=== PATIENT | male | born 1960 | race Caucasian/White ===

== ENCOUNTER 2024-03-10 13:46 | Outpatient (RCR) | payer MEDICARE, SELFPAY | END 2024-03-11 23:59 | disposition home or self-care (01) | LOC: CR 13:46 | PROVIDERS: Visit Provider Internal Medicine Cardiovascular Disease | DX: I21.29 ST elevation (STEMI) myocardial infarction involving other sites (principal); Z51.89 Encounter for other specified aftercare | CPT/HCPCS: S9472 ==

== ENCOUNTER 2024-04-11 13:19 | Outpatient (RCR) | payer MEDICARE, MEDICAID, SELFPAY | END 2024-04-11 23:59 | disposition home or self-care (01) | LOC: CR 13:19 | PROVIDERS: Visit Provider Internal Medicine Cardiovascular Disease | DX: I21.29 ST elevation (STEMI) myocardial infarction involving other sites (principal); Z51.89 Encounter for other specified aftercare | CPT/HCPCS: S9472 ==

== ENCOUNTER 2024-05-07 13:04 | Outpatient (RCR) | payer MEDICARE, MEDICAID, SELFPAY | END 2024-05-11 23:59 | disposition home or self-care (01) | LOC: CR 13:04 | PROVIDERS: Visit Provider Internal Medicine Cardiovascular Disease | DX: I21.3 ST elevation (STEMI) myocardial infarction of unspecified site (principal) | CPT/HCPCS: S9472 ==

== ENCOUNTER 2024-06-11 13:20 | Outpatient (RCR) | payer MEDICARE, MEDICAID, SELFPAY | END 2024-06-11 23:59 | disposition home or self-care (01) | LOC: CR 13:20 | PROVIDERS: Visit Provider Internal Medicine Cardiovascular Disease | DX: I21.3 ST elevation (STEMI) myocardial infarction of unspecified site (principal) | CPT/HCPCS: S9472 ==

== ENCOUNTER 2024-07-09 13:31 | Outpatient (RCR) | payer MEDICARE, MEDICAID, SELFPAY ==
--- OUTSIDE RECORDS SUMMARY | 2024-06-18 14:54 | XMS_ITS | Continuity of Care Document ---
Author Organization [facility] Ambulatory Clinics Address [address] [place] [address] Care Team Providers Care Director Of Enrollment Name Role Phone Leo Locke DO Primary Care Physician [phone] Encounter [facility] FIN NBR [id number] Date(s): 12/21/22 - 12/21/22 [facility] Ambulatory Clinics [address] [place], [place] [address] Encounter Diagnosis PATRICIA - Obstructive sleep apnea(Discharge Diagnosis) - 12/21/22 Discharge Disposition: Home or Self Care Attending Physician: Cody Ahumada DO Allergies, Adverse Reactions, Alerts Substance Reaction Severity Status lisinopril Dry cough Moderate Active Lipitor Unknown Active AmLODIPine Besylate Unknown Active Assessment and Plan Future Appointments Future Scheduled Tests Laboratory* Comprehensive Metabolic Panel 02/08/23 * Hgb A1c 02/08/23 Functional Status 12/21/22 Other exposure to Infectious Disease Non e Immunizations Given and Recorded Vaccine Date Status Refusal Reason SARS-CoV-2 (COVID-19) mRNA BNT-162b2 vax 11/03/21 Recorded influenza, unspecified formulation 1 09/05/11 Martínez rded 1Result Comment: ASHUTOSH Medications Ativan 1 mg oral tablet 1 mg = 1 tab, Oral, BID, PRN as needed for anxiety, 0 Refill(s) Start Date: 10/08/22 Status: Ordered Durable Medical Equipment freestyle lancets to go with Kaylee, Supply, See instructions, # 1 EA, 0 Refill(s) Start Date: 10/08/22 Status: Ordered Durable Medical Equipment freestyle test strips, Supply, See instructions, # 1 EA, 0 Refill(s) Start Date: 10/08/22 Status: Ordered Durable Medical Equipment Freestyle Kaylee 14 day Sensor, Supply, See instructions, # 1 EA, 0 Refill(s) Start Date: 10/08/22 Status: Ordered ketoconazole 2% topical cream 1 jorje, Topical, Daily, # 15 g, 0 Refill(s) Start Date: 10/08/22 Status: Ordered losartan 25 mg oral tablet 25 mg = 1 tab, Oral, Daily, # 30 tab, 0 Refill(s) Start Date: 10/08/22 Status: Ordered metFORMIN 500 mg oral tablet 500 mg = 1 tab, Oral, Daily, # 90 tab, 4 Refill(s), Pharmacy: [id number] Start Date: 10/11/22 Stop Date: 01/04/24 Status: Ordered semaglutide 4 mg/3 mL (1 mg dose) subcutaneous solution 1 mg =, Subcutaneous, every week, # 3 mL, 3 Refill(s), Pharmacy: [facility] Start Date: 10/16/22 Stop Date: 02/13/23 Status: Ordered Ventolin HFA 90 mcg/inh inhalation aerosol 2 puffs, Inhale, every 4 hr, PRN as needed for wheezing, # 18 g, 0 Refill(s) Start Date: 10/08/22 Status: Ordered verapamil 180 mg/12 hours oral tablet, extended release 180 mg = 1 tab, Oral, every 12 hr, 0 Refill(s) Start Date: 10/08/22 Status: Ordered Vraylar 3 mg =, Oral, Daily, 0 Refill(s) Start Date: 10/08/22 Status: Ordered Problem List Condition Confirmation Course Effective Dates Status H ealth Status Informant Acute cystitis 1 Confirmed Active Benign prostatic hyperplasia with outflow obstruction Confirmed Active Bipolar affective disorder Confirmed Active Bladder calculus Confirmed Active BPH - benign prostatic hyperplasia Confirmed Active Chronic diarrhea Confirmed Active COPD - Chronic obstructive pulmonary disease Confirmed Active Dysuria Confirmed Active Erectile dysfunction Confirmed Active Essential hypertension Confirmed Active GERD - Gastro-esophageal reflux disease Confirmed Active High blood cholesterol/triglycer ides Confirmed Active Hyperlipidemia Confirmed Active Hyperoxaluria Confirmed Active Incomplete bladder emptying Confirmed Active Lesion of bladder Confirmed Active Male hypogonadism Confirmed Active Obesity-morbid Confirmed Active PATRICIA - Obstructive sleep apnea Confirmed Active Overeating Confirmed Active Polyuria Confirmed Active Prostatitis Confirmed Active Restrictive lung disease Confirmed Active Tobacco dependence caused by cigarettes Confirmed Active Type 2 diabetes mellitus Confirmed Active Urinary hesitancy Confirmed Active 1without hematuria Procedures Procedure Date Related Diagnosis Body Site Status TURP - Redo transurethral re section of prostate 1 03/12/18 Completed Colonoscopy 2 10/20/13 Completed Procedure 3 Completed Procedure 4 Completed Surgery 5 Completed 1calculi 2Dr. Anup LR 3skin tag removal 4wart removal left hand finger as a teenager 5deviated septum 2007 Vital Signs Most recent to oldest [Reference Range]: 1 Peripheral Pulse Rate [60-100 bpm] 86 bp m (12/21/22 1:43 PM) Blood Pressure [90-140/60-90 mmHg] 137/8 7mmHg (12/21/22 1:43 PM) Weight 136.71 kg (12/21/22 1:43 PM) Weight Measured (lbs) 301.394 lb (12/21/22 1:43 PM) [place] Body Weight Calculated 75.3 kg (12/21/22 1:43 PM) Height 180.34 cm (12/21/22 1:43 PM) Height/Length Measured (inches) 71 inch (12/21/22 1:43 PM) BSA Measured 2.62 m2 (12/21/22 1:43 PM) Body Mass Index 42.04 kg/m2 (12/21/22 1:43 PM) Social History Social History Type Response Tobacco Never tobacco user T obacco Use:. Sex Hospital Discharge Instructions Follow Up Care 11/29/2022 10:15:05 With:Cody Ahumada DO Address: [address] [place] [id number] When: Unknown Comments:Should be seen in 1 year. Physician Outpatient Note * Cody Ahumada DO: PERFORM Event Display: Office Clinic Note Physician Authored Date: [id number] ANDREW ALVARADO :1960 Age:62 years Sex:Male Visit Date:12/21/2022 Primary Care Physician: Leo Locke DO Chief Complaint 6-month follow-up for severe PATRICIA treated with bilevel ventilation 12/9 cm H2O. ??Using a new Tiffanie bilevel unit from [facility]. ??100% usage, high leak. He scored 1 on [place] today. ??Needs mask and heatedhose. 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 Leo Locke for primary care initially presented to me on December 14, 2021 with a known history of PATRICIA at the request of Dr. Locke for further evaluation and management. -- Andrew's most recent sleep medicine consult was from [place] dated November 21, 2021. He had originally been seen there in 2008 and diagnosed with severe PATRICIA with AHI of 65 and during REM sleep the AHI was 127. -- Started on bilevel ventilation. His DME was [employer] and they verified consistent usage. -- Dr. Jose Adler of the [place] sleep center thought it was acceptable for him to transfer sleepmedicine care to me as it was more convenient for the patient. -- He was using a ResMed air curve 10 bilevel unit. -- He initially came to us without an SSD card and so we gave him 1 and got a compliance report which was good. I then ordered a much-needed new machine as his current one was 7 years or more of age.He requested an 8 long foot regular hose and wanted to continue using his Quatro medium fullface mask. He also likes the pressure settings. ... ?? Data Download:??November 28, 2022??through December 19, 2022 - Settings:??Bilevel 12/9 cm H2O - Use:??100% - Av. nightly use:??10 hours 44 minutes - 95% pressure:??As noted - AHI:??1.1 - 95% leak:??69.9 L/min ... Andrew presents today without complaint.?? He does note that he would like to be supplied better with??his medium ResMed??Quatro [place]??face mask and he notes that??the heated hose given to him by hisnew DME company??was faulty and he would like that ordered as well.?? Of course, I am happy to do so.?? Otherwise, he likes the machine and feels the [employer] company is okay. ?? He changes the mask about once a month. ??He is not bothered by leak and he feels the pressure is appropriate.?? Unfortunately, he rarely cleans the mask but will??make a greater effort at my behest.?? He does not use the??reservoir.?? The filters on the new machine are washable??and he will take proper care of those.?? He would have done so by now but he only got the machine??2-1/2 to 3 weeks ago. ?? In health news,??he thinks his last A1c was around 11.?? His primary care provider doubled his Ozempic??and Andrew tells me his blood sugars range from 150 to the low 200s. ?? Andrew sleeps a lot but??feels fine about that.?? He generally sleeps from??7 or 8 PM until 9 AM.?? He continues to wake up??as many as 6 or 7 times per night to urinate.?? This has been investigated by urology??and they feel it is due to diabetes and sleep apnea, even though the latter is controlled.?? On some nights he is brenda and he may only get up??3 times??but that only happens once or twice a week at most. ?? Andrew continues to have a low [place] sleepiness score.?? Today's value is 12/05. ?? Multiple benefits are again cited:??No snoring or breathing pauses as well as better sleep quality with fewer awakenings,??waking up more refreshed with more daytime energy and less daytime sleepiness,??fewer headaches with better concentration and better blood pressure. Review of Systems Constitutional:?No??fevers,?No??chills,?No??sweats ENT:?No??ear pain,?No??nasal congestion,?No??sore throat Respiratory:?No??shortness of breath,?No??cough Cardiovascular:?No??Chest pain,?No??palpitations,?No??syncope Neurologic: Alert & oriented X 4 Psychiatric:?No??anxiety,?No??depression Physical Exam Vitals & Measurements HR:??86??(Peripheral)?? BP:??137/87?? HT:??180.34??cm?? WT:??136.71??kg?? BMI:??42.04?? BSA:??2.62?? General: Alert and oriented,??No??acute distress, obese Eye: PERRL, EOMI,?Normal??conjunctiva HENT: Normocephalic, Atraumatic, Dentition??normal??Retrognathia??none??Mallampati class??IV,??Tongue size??large, Tonsils??Surgically absent, Uvula??thick Throat:??Normal Neck: Supple, non-tender,?No??carotid bruits,?No??JVD,?No??lymphadenopathy Lungs: Clear to auscultation and percussion,?Non-labored?? respiration,??No wheezes,??No Rales,??No rhonchi Heart:?Normal?? rate,?Regular??rhythm,?No??murmur??_,?No??gallop,?No??edema Neurologic: Awake, alert and oriented, Cognition??Normal, Coordination??Normal??Speech??Normal??TremorNone Psychiatric: Appropriate mood and affect Assessment/Plan 1.??PATRICIA - Obstructive sleep apnea??G47.33 I am ordering a new heated hose??for Andrew's Tiffanie bilevel unit??which she has been using ever since he got it 2-1/2 to 3 years ago.?? He is doing so to great effect??and has always been very compliantthe entire time I have known him.?? I am also ordering him??more masks.?? Andrew is a very conscientious??gentleman very actively engaged in his healthcare??and when it comes to his obstructive sleep apnea syndrome, at least,??he is very well controlled.?? I do not think he needs to be seen again??for a year but he knows to call me??with any questions, problems, or concerns??prior to my departure??from [facility] on March 01. Follow Up Instructions With When Contact Information Cody Ahumada DO [address] [place] [address] Additional Instructions: Should be seen in 1 year. Problem List/Past Medical History Ongoing Acute cystitis Benign prostatic hyperplasia with outflow obstruction Bipolar affective disorder Bladder calculus BPH - benign prostatic hyperplasia Chronic diarrhea COPD - Chronic obstructive pulmonary disease Dysuria Erectile dysfunction Essential hypertension GERD - Gastro-esophageal reflux disease High blood cholesterol/triglycerides Hyperlipidemia Hyperoxaluria Incomplete bladder emptying Lesion of bladder Male hypogonadism Obesity-morbid PATRICIA - Obstructive sleep apnea Overeating Polyuria Prostatitis Restrictive lung disease Tobacco dependence caused by cigarettes Type 2 diabetes mellitus Urinary hesitancy Historical No qualifying data Procedure/Surgical History ???TURP - Redo transurethral resection of prostate (03/13/2018)???Colonoscopy (10/21/2013)???Procedure???Procedure???Surgery Medications Ativan 1 mg oral tablet, 1 mg= 1 tab, Oral, BID, PRN Durable Medical Equipment, See instructions Durable Medical Equipment, See instructions Durable Medical Equipment, See instructions ketoconazole 2% topical cream, 1 jorje, Topical, Daily losartan 25 mg oral tablet, 25 mg= 1 tab, Oral, Daily metFORMIN 500 mg oral tablet, 500 mg= 1 tab, Oral, Daily, 4 refills semaglutide 4 mg/3 mL (1 mg dose) subcutaneous solution, 1 mg, Subcutaneous, every week, 3 refills Ventolin HFA 90 mcg/inh inhalation aerosol, 2 puffs, Inhale, every 4 hr, PRN verapamil 180 mg/12 hours oral tablet, extended release, 180 mg= 1 tab, Oral, every 12 hr Vraylar, 3 mg, Oral, Daily Allergies lisinopril??(Dry cough) AmLODIPine Besylate Lipitor Social History Alcohol Never Electronic Cigarette/Vaping Electronic Cigarette Use: Use, within last 90 days. Type: Cannabinoid infused. Tobacco Never tobacco user Tobacco Use:. Family History Alcoholism: Sister. Diabetes mellitus: Mother. Diabetes mellitus type 1: Sister. Family Member(s): ?? FATHER, at age: Unknown. Cause of : Family Member(s): ?? SISTER, at age: Unknown. Cause of : Immunizations Vaccine Date Status SARS-CoV-2 (COVID-19) mRNA BNT-162b2 vax 11/03/2021 Recorded influenza, unspecified formulation 09/05/2011 Recorded Comments : ASHUTOSH Electronically Signed on 12/21/22 02:16 PM Cody Ahumada DO Patient Care team information Personnel Name: Leo Locke DO Address: Address: [address] [place] [phone]
--- OUTSIDE RECORDS SUMMARY | 2024-06-18 14:54 | XMS_ITS | Continuity of Care Document ---
Author Organization [facility] Ambulatory Clinics Address [address] [place] [address] Care Team Providers Care Family Service Counselor Name Role Phone Leo Locke DO Primary Care Physician Encounter [facility] [facility] NBR [id number] Date(s): 04/10/23 - 04/10/23 [facility] Ambulatory Clinics [address] [place], [place] [address] Discharge Disposition: Home Allergies, Adverse Reactions, Alerts Substance Reaction Severity Status lisinopril Dry cough Moderate Active Lipitor Unknown Active AmLODIPine Besylate Unknown Active Assessment and Plan Future Appointments Future Scheduled Tests Laboratory* Comprehensive Metabolic Panel 04/10/23 * Comprehensive Metabolic Panel 02/08/23 * Hgb A1c 04/10/23 * Hgb A1c 02/08/23 Immunizations Given and Recorded Vaccine Date Status Refusal Reason SARS-CoV-2 (COVID-19) mRNA BNT-162b2 vax 11/03/21 Recorded SARS-CoV-2 (COVID-19) mRNA BNT-162b2 vax 1 04/13/21 Recorded SARS-CoV-2 (COVID-19) mRNA BNT-162b2 vax 2 02/10/21 Recorded influenza, unspecified formulation 3 09/05/11 Martínez rded 1Result Comment: COVID-19 (Pfizer) mRNA,LNP-S,PF 30 mcg/0.3mL dose 2Result Comment: COVID-19 (Pfizer) mRNA,LNP-S,PF 30 mcg/0.3mL dose 3Result Comment: ASHUTOSH Medications Ativan 1 mg oral tablet 1 mg = 1 tab, Oral, BID, PRN as needed for anxiety, # 40 tab, 0 Refill(s) Start Date: 10/08/22 Stop Date: 02/22/23 Status: Ordered Durable Medical Equipment freestyle lancets to go with Kaylee, Supply, See instructions, # 1 EA, 0 Refill(s) Start Date: 10/08/22 Status: Ordered Durable Medical Equipment freestyle test strips, Supply, See instructions, # 1 EA, 0 Refill(s) Start Date: 10/08/22 Status: Ordered Freestyle Kaylee 14 day sensor Freestyle Kaylee 14 day sensor, Freestyle Kaylee 14 day Sensor, appy new sensor every 14 days per package directions, Supply, See instructions, # 6 EA, 3 Refill(s), Pharmacy: [facility] Start Date: 01/09/23 Status: Ordered High Potency Vitamin D3 125 mcg (5000 intl units) oral capsule 125 mcg = 1 cap, Oral, Daily, # 90 cap, 0 Refill(s) Start Date: 02/02/23 Stop Date: 05/02/23 Status: Ordered ketoconazole 2% topical cream 1 jorje, Topical, Daily, For 1 week. Repeat as needed., # 15 g, 0 Refill(s) Start Date: 10/08/22 Status: Ordered losartan 25 mg oral tablet 25 mg = 1 tab, Oral, Daily, # 90 tab, 3 Refill(s), Pharmacy: [facility] Start Date: 01/19/23 Stop Date: 01/14/24 Status: Ordered metFORMIN 500 mg oral tablet 500 mg = 1 tab, Oral, Daily, # 90 tab, 3 Refill(s), Pharmacy: [facility] Start Date: 01/19/23 Stop Date: 01/14/24 Status: Ordered potassium citrate 10 mEq oral tablet, extended release 20 mEq = 2 tab, Oral, BID w/Meals, # 180 tab, 0 Refill(s) Start Date: 02/02/23 Stop Date: 05/03/23 Status: Ordered semaglutide 4 mg/3 mL (1 mg dose) subcutaneous solution 1 mg =, Subcutaneous, every week, # 3 mL, 3 Refill(s), Pharmacy: [facility] Start Date: 10/16/22 Stop Date: 02/13/23 Status: Ordered Ventolin HFA 90 mcg/inh inhalation aerosol 2 puffs, Inhale, every 4 hr, PRN as needed for wheezing, # 18 g, 0 Refill(s) Start Date: 10/08/22 Stop Date: 05/03/23 Status: Ordered verapamil 180 mg/12 hours oral tablet, extended release 180 mg = 1 tab, Oral, every 12 hr, # 180 tab, 3 Refill(s), Pharmacy: [facility] Start Date: 01/19/23 Stop Date: 01/14/24 Status: Ordered Vraylar 3 mg oral capsule 3 mg = 1 cap, Oral, Daily, # 90 cap, 0 Refill(s) Start Date: 02/02/23 Stop Date: 05/02/23 Status: Ordered Problem List Condition Confirmation Course Effective Dates Status H ealth Status Informant Acute cystitis 1 Confirmed Active Allergic rhinitis Confirmed Active Benign prostatic hyperplasia with outflow obstruction Confirmed Active BPH with obstruction/lower urinary tract symptoms 2 Confirmed Active Bipolar affective disorder 3 Confirmed Active Bladder calculus 4 Confirmed Active BPH - benign prostatic hyperplasia Confirmed Active Chronic diarrhea 5 Confirmed Active Chronic obstructive pulmonary disease, unspecified Confirmed Active COPD - Chronic obstructive pulmonary disease Confirmed Active Dysuria 6 Confirmed Active Erectile dysfunction Confirmed Active Essential hypertension Confirmed Active GERD - Gastro-esophageal reflux disease Confirmed Active High blood cholesterol/triglycer ides 7 Confirmed Active Hyperlipidemia Confirmed Active Hyperoxaluria 8 Confirmed Active Incomplete bladder emptying 9 Confirmed Active Hyperuricosuria 10 Confirmed Active Lesion of bladder 11 Confirmed Active Male hypogonadism Confirmed Active Hypogonadism male 12 Confirmed Active Morbid obesity due to excess calories 13 Confirmed Active Obesity-morbid Confirmed Active PATRICIA - Obstructive sleep apnea 14 Confirmed Active Overeating 15 Confirmed Active Polyuria Confirmed Active Prostatitis Confirmed Active Restrictive lung disease Confirmed Active Stress fracture of metatarsal bone Confirmed Active Tobacco dependence caused by cigarettes Confirmed Active Cigarette nicotine dependence in remission 16 Confirmed Active Type 2 diabetes mellitus Confirmed Active Type 2 diabetes mellitus without complication, without long-term current use of insulin Confirmed Active Urinary hesitancy Confirmed Active 1without hematuria 2FROM ECW: s/p TURP for outlet obstruction and stones. Improved LUTS, no significant recurrent calculi noted on pelvic CT. No concerning symptoms or urinary microscopic findings to suggest recurrent stones. Recheck on year. 3FROM ECW: Mood medications are with Dr. White. I will convey again my concerns about his weight, though I think a problem for many on stronger psychiatric medication, my thought. I had sent her notes back in June of last year, regarding the same. 4FROM ECW: While not related to obesity, it appears he was suggested to eat a diet lower in meats, but I don't know that he has either understood that or embraced that. Despite this, his understandingof the kidney stones are currently in remission. I don't think he necessarily needs to continue to see a medical neurologist, my thought, as long as he is doing well and as long as a plan is in place. Please also see below. 5FROM ECW: Likely osmiotic, related to diet. Doubt infectious, or inflammatory etiology. 6FROM ECW: terminal, likely relates to incomplete healing of prostatic fossa. 7FROM ECW: Admittedly his triglycerides are over 1000. The patient is morbidly obese. Ideally the best treatment for this is not medication but rather weight loss. I just don't believe that using Lopid/gemfibrozil is advantageous one weight loss is really the alberto, and would not start medication. This will obviously need to be followed. 8FROM ECW: Nephrology managing due to multiple metabolic derangements in the setting of numerous complicating medical comorbidities. 9may have contributed to calculus formation. Resolved. 10FROM ECW: Nephrology managing due to multiple metabolic derangements in the setting of numerous complicating medical comorbidities. 11FROM ECW: not appreciated intra-operatively, may have been inflammatory or an artifact of scope passage. 12FROM ECW: Certainly this could drive his BPH issue. Stop medications on his own. I reviewed with him that the trend seems to be away from treating people for BPH, for perhaps the same reason he stopped treatment, that treatment doesn't always help reference to symptoms that may have resulted in starting testosterone replacement. 13FROM ECW: As a noted below, virtually all of his problems are related to his obesity and this was the focus of our discussion. Please see comments below 14FROM ECW: The patient looks like he has a class IV airway. He remains on BiPAP doing well. 15FROM ECW: My suspicion is that he still needs to reflect on portion size, another potential successful strategy. 16FROM ECW: We did note the patient is now nicotine free I think he said since 2016. Congratulated him on that. Procedures Procedure Date Related Diagnosis Body Site Status TURP - Redo transurethral re section of prostate 1 03/12/18 Completed Colonoscopy 2 10/20/13 Completed Procedure 3 Completed Procedure 4 Completed Surgery 5 Completed 1calculi 2Dr. Anup LR 3skin tag removal 4wart removal left hand finger as a teenager 5deviated septum 2008 Social History Social History Type Response Tobacco Former tobacco user Tobacco Use:. 1 Sex 1ECW states quit 2002 Patient Care team information Care Team Personnel Name: Leo Locke DO Position: Physician Member Role: Primary Care Physician Address: Address: [address] [place] [phone]
--- OUTSIDE RECORDS SUMMARY | 2024-06-18 14:54 | XMS_ITS | Continuity of Care Document ---
Author Organization [facility] Ambulatory Clinics Address [address] [place] [address] Encounter [facility] NBR [id number] Date(s): 10/11/22 - 10/11/22 [facility] Ambulatory Clinics [address], [place] [address] Encounter Diagnosis Type 2 diabetes mellitus(Discharge Diagnosis) - 10/11/22 COPD - Chronic obstructive pulmonary disease(Discharge Diagnosis) - 10/11/22 Essential hypertension(Discharge Diagnosis) - 10/11/22 Discharge Disposition: Home or Self Care Attending Physician: Leo Locke DO Allergies, Adverse Reactions, Alerts Substance Reaction Severity Status lisinopril Dry cough Moderate Active Lipitor Unknown Active AmLODIPine Besylate Unknown Active Assessment and Plan Future Appointments Future Scheduled Tests Laboratory* Comprehensive Metabolic Panel 02/08/23 * Hgb A1c 02/08/23 Functional Status 10/11/22 Other exposure to Infectious Disease Non e [...] Daily, # 90 tab, 4 Refill(s), Pharmacy: [facility] #[id number] Start Date: 10/11/22 Stop Date: 01/04/24 Status: Ordered semaglutide 1 mg/0.5 mL (1 mg dose) subcutaneous solution 1 mg =, Subcutaneous, every week, in the abdomen, thigh, or upper arm, # 2 mL, 11 Refill(s), Pharmacy: [facility] #[id number] Start Date: 10/11/22 Stop Date: 09/12/23 Status: Ordered Ventolin HFA 90 mcg/inh inhalation [...] Active Urinary hesitancy Confirmed Active 1without hematuria Vital Signs Most recent to oldest [Reference Range]: 1 Peripheral Pulse Rate [60-100 bpm] 94 bp m (10/11/22 2:05 PM) Blood Pressure [90-140/60-90 mmHg] 130/8 8mmHg (10/11/22 2:05 PM) Weight 133 kg (10/11/22 2:05 PM) Weight Measured (lbs) 293.214 lb (10/11/22 2:05 PM) Social History Social History Type Response Tobacco Never tobacco user T obacco Use:. Sex Hospital Discharge Instructions Follow Up Care 09/23/2022 21:37:06 With:Leo Locke DO Address: [address] [place] [address] When: Unknown Comments:4 months Physician Outpatient Note * Leo Locke DO: PERFORM Event Display: Office Clinic Note Physician Authored Date: [id number] ANDREW ALVARADO :1960 Age:61 years Sex:Male Visit Date:10/11/2022 Chief Complaint follow up ... right elbow History of Present Illness Patient is a 61-year-old male who comes in today for follow-up. Endocrine: Just had his labs done.?? A1c is 11.4, up from 10 last time.?? Admits to missing his Ozempic doses.?? Also admits to dietary indiscretions especially around the holidays. Cardiology: Taking his medication as prescribed. Pulmonary: Breathing is at baseline.?? Using his inhalers as prescribed. Review of Systems See HPI otherwise negative. Physical Exam Vitals & Measurements HR:??94??(Peripheral)?? BP:??130/88?? SpO2:??95%?? WT:??133??kg?? General: Alert and oriented, well nourished,?No??acute distress Lungs:??Clear??to auscultation and percussion,?Non-labored?? respiration Heart:?Normal?? rate,?Regular??rhythm,?No??murmur,?No??gallop,?No??edema Abdomen: Soft, non-tender, non-distended,?Normal?? bowel sounds,?No??masses Musculoskeletal:?Normal?? range of motion and strength,?No??tenderness,?No??swelling Skin: Skin is warm, dry and pink,?No??rashes,?No??lesion Assessment/Plan 1.??Type 2 diabetes mellitus??E11.9 A1c is worse.?? We discussed the importance of caloric balance as well as medication compliance.?? Will increase the dose of his Ozempic today.?? Follow- up in 4 months or sooner as needed. Ordered: Comprehensive Metabolic Panel, Blood, Routine, *Est. 02/08/23 +/- 21 days, Once, Lab Collect, Type 2 diabetes mellitus Essential hypertension, Order for future visit Hgb A1c, Blood, Routine, *Est. 02/08/23 +/- 21 days, Once, Lab Collect, Type 2 diabetes mellitus Essential hypertension, Order for future visit ?? 2.??COPD - Chronic obstructive pulmonary disease??J44.9 At baseline.?? Continue current regimen. ?? 3.??Essential hypertension??I10 Blood pressures well controlled.?? We will continue current regimen. Ordered: Comprehensive Metabolic Panel, Blood, Routine, *Est. 02/08/23 +/- 21 days, Once, Lab Collect, Type 2 diabetes mellitus Essential hypertension, Order for future visit Hgb A1c, Blood, Routine, *Est. 02/08/23 +/- 21 days, Once, Lab Collect, Type 2 diabetes mellitus Essential hypertension, Order for future visit ?? Orders: metFORMIN 500 mg oral tablet, 500 mg = 1 tab, Oral, Daily, # 90 tab, 4 Refill(s), Pharmacy: [facility] #[id number] semaglutide 1 mg/0.5 mL (1 mg dose) subcutaneous solution, 1 mg =, Subcutaneous, every week, in theabdomen, thigh, or upper arm, # 2 mL, 11 Refill(s), Pharmacy: [facility] #[id number] Future Orders Comprehensive Metabolic Panel, Blood, Routine, *Est. 02/08/23 +/- 21 days, Once, Lab Collect, Type 2 diabetes mellitus Essential hypertension, Order for future visit Hgb A1c, Blood, Routine, *Est. 02/08/23 +/- 21 days, Once, Lab Collect, Type 2 diabetes mellitus Essential hypertension, Order for future visit Follow Up Instructions With When Contact Information Leo Locke DO [address] [place] [address] Additional Instructions: 4 months Problem List/Past Medical History Ongoing Acute cystitis [...] mellitus Urinary hesitancy Historical No qualifying data Medications Ativan 1 mg oral tablet, 1 mg= 1 tab, Oral, BID, PRN Durable Medical Equipment, See instructions Durable Medical Equipment, See instructions Durable Medical Equipment, See instructions ketoconazole 2% topical cream, 1 jorje, Topical, Daily losartan 25 mg oral tablet, 25 mg= 1 tab, Oral, Daily metFORMIN 500 mg oral tablet, 500 mg= 1 tab, Oral, Daily, 4 refills semaglutide 1 mg/0.5 mL (1 mg dose) subcutaneous solution, 1 mg, Subcutaneous, every week, 11 refills Ventolin HFA 90 mcg/inh inhalation aerosol, [...] infused. Tobacco Never tobacco user Tobacco Use:. Immunizations Vaccine Date Status SARS-CoV-2 (COVID-19) mRNA BNT-162b2 vax 11/03/2021 Recorded influenza, unspecified formulation 09/05/2011 Recorded Comments : ASHUTOSH Electronically Signed on 10/11/22 02:56 PM Leo Locke DO
--- OUTSIDE RECORDS SUMMARY | 2024-06-18 14:54 | XMS_ITS | Continuity of Care Document ---
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 Role Phone Leo Locke DO Primary Care Physician Encounter [facility] NBR [id number] Date(s): 04/14/24 - 04/14/24 [facility] Ambulatory Clinics [address] [place] [address]- [place] Discharge Disposition: Home Allergies, Adverse Reactions, Alerts Substance Reaction Severity Status lisinopril Dry cough Moderate Active Lipitor Unknown Active AmLODIPine Besylate Unknown Active Assessment and Plan Future Appointments Immunizations Given and Recorded Vaccine Date Status Refusal Reason SARS-CoV-2 (COVID-19) mRNA BNT-162b2 vax 11/03/21 Recorded SARS-CoV-2 (COVID-19) mRNA BNT-162b2 vax 1 04/13/21 Recorded SARS-CoV-2 (COVID-19) mRNA BNT-162b2 vax 2 02/10/21 Recorded influenza, unspecified formulation 3 09/05/11 Martínez rded 1Result Comment: COVID-19 (Pfizer) mRNA,LNP-S,PF 30 mcg/0.3mL dose 2Result Comment: COVID-19 (Pfizer) mRNA,LNP-S,PF 30 mcg/0.3mL dose 3Result Comment: ASHUTOSH Medications Anoro Ellipta 62.5 mcg-25 mcg/inh inhalation powder 180 EA, 0 Refill(s), 0 Refill(s) Start Date: 10/09/23 Status: Ordered aspirin 81 mg oral delayed release tablet 81 mg = 1 tab, Oral, Daily, # 30 tab, 0 Refill(s), Pharmacy: [facility], 179.5, cm, 12/12/23 14:44:00 EST, Height, 138.1, kg, 01/08/24 13:21:00 EST, Weight Dosing Start Date: 04/04/24 Status: Ordered Basaglar KwikPen 100 units/mL subcutaneous solution 60 units =, Subcutaneous, BID, # 15 mL, 3 Refill(s), Pharmacy: [facility], 179.5, cm, 12/12/23 14:44:00 EST, Height, 138.1, kg, 01/08/24 13:21:00 EST, Weight Dosing Start Date: 01/25/24 Status: Ordered clopidogrel 75 mg oral tablet 75 mg = 1 tab, Oral, Daily, # 30 tab, 0 Refill(s), Pharmacy: [facility], 179.5, cm, 12/12/23 14:44:00 EST, Height, 138.1, kg, 01/08/24 13:21:00 EST, Weight Dosing Start Date: 04/04/24 Status: Ordered Freestyle Kaylee 14 day sensor Freestyle Kaylee 14 day sensor, Freestyle Kaylee 14 day Sensor, appy new sensor every 14 days per package directions, Supply, See instructions, # 6 EA, 3 Refill(s), Pharmacy: [facility] Start Date: 01/09/23 Status: Ordered furosemide 40 mg oral tablet 40 mg = 1 tab, Oral, Daily, # 30 tab, 0 Refill(s), Pharmacy: [facility], 179.5, cm, 12/12/23 14:44:00 EST, Height, 138.1, kg, 01/08/24 13:21:00 EST, Weight Dosing Start Date: 04/04/24 Status: Ordered Gvoke HypoPen One Pack 0.5 mg/0.1 mL subcutaneous solution 0.5 mg = 0.1 mL, Subcutaneous, Once, # 0.1 mL, 2 Refill(s), Pharmacy: [facility], 179.5, cm, 12/12/23 14:44:00 EST, Height, 137, kg, 12/12/23 14:48:00 EST, Weight Dosing Start Date: 01/07/24 Status: Ordered HumaLOG KwikPen 100 units/mL injectable solution See Instructions, inject 3x a day 10 units for small meals 15 units for medium meals 20 units for large meals, # 15 mL, 3 Refill(s), Pharmacy: [facility], 179.5, cm, 12/12/23 14:44:00 EST, Height, 137, kg, 12/12/23 14:48:00 EST, Weight Dosing Start Date: 12/31/23 Status: Ordered HumuLIN R KwikPen (Concentrated) 500 units/mL subcutaneous solution 12 mL, 0 Refill(s), 0 Refill(s) Start Date: 04/10/24 Status: Ordered Jardiance 25 mg oral tablet 25 mg = 1 tab, Oral, every morning, # 30 tab, 0 Refill(s) Start Date: 04/10/24 Status: Ordered ketoconazole 2% topical cream 1 jorje, Topical, Daily, PRN rash, to affected area, # 60 g, 2 Refill(s), Pharmacy: [facility], 179.5, cm, 12/12/23 14:44:00 EST, Height, 151.59, kg, 04/10/24 15:28:00 EDT, Weight Dosing Start Date: 04/10/24 Status: Ordered losartan 50 mg oral tablet 50 mg = 1 tab, Oral, Daily, # 30 tab, 0 Refill(s), Pharmacy: [facility], 179.5, cm, 12/12/23 14:44:00 EST, Height, 138.1, kg, 01/08/24 13:21:00 EST, Weight Dosing Start Date: 03/14/24 Status: Ordered metFORMIN 500 mg oral tablet, extended release 500 mg = 1 tab, Oral, BID, # 60 tab, 0 Refill(s), Pharmacy: [facility], 179.5, cm, 12/12/23 14:44:00 EST, Height, 138.1, kg, 01/08/24 13:21:00 EST, Weight Dosing Start Date: 04/04/24 Status: Ordered metoprolol succinate 100 mg oral capsule, extended release 100 mg =, Oral, Daily, # 30 cap, 0 Refill(s), Pharmacy: [facility], 179.5, cm, 12/12/2413:44:00 EST, Height, 138.1, kg, 01/08/24 13:21:00 EST, Weight Dosing Start Date: 04/04/24 Status: Ordered Mounjaro 10 mg/0.5 mL subcutaneous solution 2 mL, 0 Refill(s), 0 Refill(s) Start Date: 04/10/24 Status: Ordered nitroglycerin 0.4 mg sublingual tablet 0.4 mg = 1 tab, Sublingual, every 5 min, PRN as needed for chest pain, 0 Refill(s) Start Date: 12/17/23 Status: Ordered rosuvastatin 40 mg oral tablet 40 mg = 1 tab, Oral, every night at bedtime, # 30 tab, 0 Refill(s), Pharmacy: [facility], 179.5, cm, 12/12/23 14:44:00 EST, Height, 138.1, kg, 01/08/24 13:21:00 EST, Weight Dosing Start Date: 04/04/24 Status: Ordered spironolactone 25 mg oral tablet 25 mg = 1 tab, Oral, Daily, # 30 tab, 0 Refill(s), Pharmacy: [facility], 179.5, cm, 12/12/23 14:44:00 EST, Height, 138.1, kg, 01/08/24 13:21:00 EST, Weight Dosing Start Date: 04/04/24 Status: Ordered Problem List Condition Confirmation Course Effective Dates Status H ealth Status Informant Acute cystitis 1 Confirmed Active Allergic rhinitis Confirmed Active Benign prostatic hyperplasia with outflow obstruction Confirmed Active BPH with obstruction/lower urinary tract symptoms 2 Confirmed Active Bipolar affective disorder 3 Confirmed Active Bladder calculus 4 Confirmed Active BPH - benign prostatic hyperplasia Confirmed Active Chronic diarrhea 5 Confirmed Active COPD - Chronic obstructive pulmonary disease Confirmed Active Coronary artery disease involving [place] heart Confirmed Active Dysuria 6 Confirmed Active Erectile [...] due to excess calories 13 Confirmed Active PATRICIA - Obstructive sleep apnea 14 Confirmed Active Prostatitis Confirmed Active Restrictive lung disease Confirmed Active Stress fracture of metatarsal bone Confirmed Active Tobacco dependence caused by cigarettes Confirmed Active Cigarette nicotine dependence in remission 15 Confirmed Active Type 2 diabetes mellitus with other circulatory complications Confirmed Active Urinary hesitancy Confirmed Active 1without [...] remains on BiPAP doing well. 15FROM ECW: We did note the patient is now nicotine free I think he said since 2016. Congratulated him on that. Procedures Procedure Date Related Diagnosis Body Site Status TURP - Redo transurethral re section of prostate 1 03/12/18 Completed Colonoscopy 2 10/20/13 Completed PCI (percutaneous coronary intervention) of circumflex branch of left coronary artery Completed Procedure 3 Completed Procedure 4 Completed Surgery 5 Completed 1calculi 2Dr. Anup [facility] 3skin tag removal 4wart removal left hand finger as a teenager 5deviated septum 2007 Social History Social History Type Response Tobacco Former tobacco user Tobacco Use:. 1 Sex 1ECW states quit 2002 Patient Care team information Care Team Personnel Name: Leo Locke DO Position: Physician Member Role: Primary Care Physician Address: Address: [address] [place] [id number] [place]
--- OUTSIDE RECORDS SUMMARY | 2024-06-18 14:54 | XMS_ITS | Continuity of Care Document ---
Author Organization [facility] Address [address] [place] [address] Encounter [facility] NBR [id number] Date(s): 10/11/22 - 10/11/22 [facility] [address] [place] [address]- Discharge Disposition: Home or Self Care Attending Physician: Leo Locke DO Admitting Physician: Leo Locke DO Allergies, Adverse Reactions, Alerts Substance Reaction Severity Status lisinopril Dry cough Moderate Active Lipitor Unknown Active AmLODIPine Besylate Unknown Active Assessment and Plan Future Appointments Future Scheduled Tests Laboratory* Comprehensive Metabolic Panel 02/08/23 * Hgb A1c 02/08/23 Immunizations Given and [...] Daily, # 90 tab, 4 Refill(s), Pharmacy: [facility] #[id number] Start Date: 10/11/22 Stop Date: 01/04/24 Status: Ordered semaglutide 1 mg/0.5 mL (1 mg dose) subcutaneous solution 1 mg =, Subcutaneous, every week, in the abdomen, thigh, or upper arm, # 2 mL, 11 Refill(s), Pharmacy: [facility] #[id number] Start Date: 10/11/22 Stop Date: [...] Active Urinary hesitancy Confirmed Active 1without hematuria Results Laboratory List Name Date Comprehensive Metabolic Panel (CMP) 09/14 Hgb A1c (Hemoglobin A1C) 10/11/22 Most recent to oldest [Reference Range]: 1 BUN [8-26 mg/dL] 24 mg/dL (10/11/22 1:40 PM) Glucose Level [74-106 mg/dL] 322 mg/dL *HI* (10/11/22 1:40 PM) Potassium Level [3.5-5.1 mmol/L] 4.2 mmo l/L (10/11/22 1:40 PM) AST [15-41 IntlUnit/L] 17 IntlUnit/L (10/11/22 1:40 PM) ALT [17-63 IntlUnit/L] 25 IntlUnit/L (10/11/22 1:40 PM) Osmolality [275-295 mOsm/kg] 274 mOsm/kg *LOW* (10/11/22 1:40 PM) Sodium Level [134-143 mmol/L] 128 mmol/L *LOW* (10/11/22 1:40 PM) Calcium Level [8.9-10.3 mg/dL] 9.1 mg/dL (10/11/22 1:40 PM) Albumin Level [3.5-5.0 g/dL] 4.0 g/dL (10/11/22 1:40 PM) Protein Total [6.5-8.1 g/dL] 7.4 g/dL (10/11/22 1:40 PM) Bilirubin Total [0.2-1.2 mg/dL] 1.0 mg/d L (10/11/22 1:40 PM) Alk Phos [38-130 IntlUnit/L] 65 IntlUnit /L (10/11/22 1:40 PM) CO2 [22-32 mmol/L] 25 mmol/L (10/11/22 1:40 PM) eGFR Non-AA 114 *NA* (10/11/22 1:40 PM) eGFR AA 114 *NA* (10/11/22 1:40 PM) eAvg Glucose 280 *NA* (10/11/22 1:40 PM) Chloride Level [98-111 mmol/L] 93 mmol/L *LOW* (10/11/22 1:40 PM) A/G Ratio 1.2 *NA* (10/11/22 1:40 PM) BUN/Creat Ratio [8.0-20.0] 43.6 *HI* (10/11/22 1:40 PM) Globulin 3.4 *NA* (10/11/22 1:40 PM) Hgb A1c Percent [4.0-6.0 %] 11.4 % *HI* (10/11/22 1:40 PM) .Hb 18.4 *NA* (10/11/22 1:40 PM) .Hgb A1c 1.86 *NA* (10/11/22 1:40 PM) Creatinine Level [0.61-1.24 mg/dL] 0.55 mg/dL *LOW* (10/11/22 1:40 PM) Anion Gap [3.0-12.0] 10.0 (10/11/22 1:40 PM) Social History Social History Type Response Tobacco Never tobacco user T obacco Use:. Sex
--- OUTSIDE RECORDS SUMMARY | 2024-06-18 14:54 | XMS_ITS | Continuity of Care Document ---
Author Organization [facility] Ambulatory Clinics Address [address] [place] [address] Care Team Providers Care Frame Polisher Name Role Phone Leo Locke DO Primary Care Physician [phone] Encounter [facility] NBR [id number] Date(s): 05/13/24 - 05/13/24 [facility] Ambulatory Clinics [address], [place] [address] Encounter Diagnosis Impacted cerumen of right ear(Discharge Diagnosis) - 05/13/24 Impacted cerumen, right ear(Final) - Discharge Disposition: Home or Self Care Attending Physician: Venkata Lopez APRN Allergies, Adverse Reactions, Alerts Substance Reaction Severity Status lisinopril Dry cough Moderate Active Lipitor Unknown Active AmLODIPine Besylate Unknown Active Assessment and Plan Extracted from: Title:[facility] Office Visit Note Author:Venkata Lopez APRN Date:05/13/24 1.??Impacted cerumen of righ t ear??H61.21 ??Cerumen impaction partially cleared with??lavage. ??Procedure tolerated well.?? Reexamination reveals??some??residual cerumen, but a clear path can be seen to the tympanic membrane.?? We discussed using Debrox, warm water flushes,??and avoiding Q-tips??in future.?? If he continues to have problems we can always consider referral to ENT. Future Appointments Immunizations Given and Recorded Vaccine Date Status Refusal Reason SARS-CoV-2 (COVID-19) mRNA BNT-162b2 vax 11/03/21 Recorded SARS-CoV-2 (COVID-19) mRNA BNT-162b2 vax 1 04/13/21 Recorded SARS-CoV-2 (COVID-19) mRNA BNT-162b2 vax 2 02/10/21 Recorded influenza, unspecified formulation 3 09/05/11 Martínez rded 1Result Comment: COVID-19 (Pfizer) mRNA,LNP-S,PF 30 mcg/0.3mL dose 2Result Comment: COVID-19 (Pfizer) mRNA,LNP-S,PF 30 mcg/0.3mL dose 3Result Comment: ASHUTOSH Medications albuterol 2.5 mg/3 mL (0.083%) inhalation solution 2.5 mg = 3 mL, Nebulized Inhalation, PRN as needed for wheezing, # 90 mL, 0 Refill(s) Start Date: 05/13/24 Status: Ordered Anoro Ellipta 62.5 mcg-25 mcg/inh inhalation powder 180 EA, 0 Refill(s), 0 Refill(s) Start Date: 10/09/23 Status: Ordered aspirin 81 mg oral delayed release tablet 81 mg = 1 tab, Oral, Daily, # 30 tab, 0 Refill(s), Pharmacy: [facility], 179.5, cm, 12/12/23 14:44:00 EST, Height, 138.1, kg, 01/08/24 13:21:00 EST, Weight Dosing Start Date: 04/04/24 Status: Ordered Basaglar KwikPen 100 units/mL subcutaneous solution 60 units =, Subcutaneous, BID, Appointment 05/13/24 , # 15 mL, 0 Refill(s), Pharmacy: [facility], 179.5, cm, 12/12/23 14:44:00 EST, Height, 151.59, kg, 04/10/24 15:28:00 EDT, Weight Dosing Start Date: 05/06/24 Status: Ordered clopidogrel 75 mg oral tablet 75 mg = 1 tab, Oral, Daily, # 30 tab, 0 Refill(s), Pharmacy: [facility], 179.5, cm, 12/12/23 14:44:00 EST, Height, 138.1, kg, 01/08/24 13:21:00 EST, Weight Dosing Start Date: 04/04/24 Status: Ordered Freestyle Kaylee 14 day sensor Freestyle Kaylee 14 day sensor, Freestyle Kaylee 14 day Sensor, appy new sensor every 14 days per package directions, Supply, See instructions, # 6 EA, 3 Refill(s), [email or web address] Start Date: 01/09/23 Status: Ordered furosemide 40 mg oral tablet 40 mg = 1 tab, Oral, Daily, # 30 tab, 0 Refill(s), Pharmacy: [facility], 179.5, cm, 12/12/23 14:44:00 EST, Height, 138.1, kg, 01/08/24 13:21:00 EST, Weight Dosing Start Date: 04/04/24 Status: Ordered Gvoke HypoPen One Pack 0.5 mg/0.1 mL subcutaneous solution 0.5 mg = 0.1 mL, Subcutaneous, Once, # 0.1 mL, 2 Refill(s), Pharmacy: [facility], 179.5, cm, 12/12/23 14:44:00 EST, Height, 137, kg, 12/12/23 14:48:00 EST, Weight Dosing Start Date: 01/07/24 Status: Ordered HumaLOG KwikPen 100 units/mL injectable solution See Instructions, inject 3x a day 10 units for small meals 15 units for medium meals 20 units for large meals, # 15 mL, 3 Refill(s), Pharmacy: [facility], 179.5, cm, 12/12/23 14:44:00 EST, Height, [...] area, # 60 g, 2 Refill(s), Pharmacy: [facility], 179.5, cm, 12/12/23 14:44:00 EST, Height, 151.59, kg, 04/10/24 15:28:00 EDT, Weight Dosing Start Date: 04/10/24 Status: Ordered losartan 50 mg oral tablet 50 mg = 1 tab, Oral, Daily, # 30 tab, 0 Refill(s), Pharmacy: [facility], 179.5, cm, 12/12/23 14:44:00 EST, Height, 138.1, kg, 01/08/24 13:21:00 EST, Weight Dosing Start Date: 03/14/24 Status: Ordered metFORMIN 500 mg oral tablet, extended release 500 mg = 1 tab, Oral, BID, # 60 tab, 0 Refill(s), Pharmacy: [facility], 179.5, cm, 12/12/23 14:44:00 EST, Height, 138.1, kg, 01/08/24 13:21:00 EST, Weight Dosing Start Date: 04/04/24 Status: Ordered metoprolol succinate 100 mg oral capsule, extended release 100 mg =, Oral, Daily, # 30 cap, 0 Refill(s), Pharmacy: [facility], 179.5, cm, 12/12/2413:44:00 EST, Height, 138.1, [...] bedtime, # 30 tab, 0 Refill(s), Pharmacy: [facility], 179.5, cm, 12/12/23 14:44:00 EST, Height, 138.1, kg, 01/08/24 13:21:00 EST, Weight Dosing Start Date: 04/04/24 Status: Ordered spironolactone 25 mg oral tablet 25 mg = 1 tab, Oral, Daily, # 30 tab, 0 Refill(s), Pharmacy: [facility], 179.5, cm, 12/12/23 14:44:00 EST, Height, [...] disease Confirmed Active Coronary artery disease involving [place] heart Confirmed Active Dysuria 6 Confirmed Active [...] Most recent to oldest [Reference Range]: 1 Temperature Tympanic [36.6-38.1 Deg C] 3 6.7 Deg C (05/13/24 1:00 PM) Apical Heart Rate [60-100 bpm] 85 bpm (05/13/24 1:00 PM) Blood Pressure [90-140/60-90 mmHg] 120/8 1mmHg (05/13/24 1:00 PM) Mean Arterial Pressure, Cuff [65-140 mmH g] 94 mmHg (05/13/24 1:00 PM) [place] Body Weight Calculated 75.3 kg (05/13/24 1:00 PM) Height 180.34 cm (05/13/24 1:00 PM) Height/Length Measured (inches) 71 inch (05/13/24 1:00 PM) Social History Social History Type Response Tobacco Former tobacco user Tobacco Use:. 1 Sex 1ECW states quit 2002 Physician Outpatient Note * Venkata Lopez APRN: PERFORM Event Display: Office Clinic Note Physician Authored Date: [id number] ANDREW ALVARADO :1960 Age:63 years Sex:Male Visit Date:05/13/2024 Primary Care Physician: Leo Locke DO Chief Complaint Right ear problem - plugged. History of Present Illness 63-year-old male patient here today with complaints of right ear fullness.?Reports problems with??earwax buildup in past.?? Describes this as??muffled. ??Has been occurring for approximately 3 weeks. ??Denies pain. ??Has tried Debrox without success. ??There is no aggravating factors. ??He woulddescribe this as mild. ??Denies fevers, chills,??discharge??from his ear,??dizziness,??or sore throat. Review of Systems Complete review of systems performed which was negative with the exception of positives and pertinent negatives noted in HPI above. Physical Exam Vitals & Measurements T:??36.7?C ??(Tympanic)?? HR:??85??(Apical)?? BP:??120/81?? SpO2:??94%?? HT:??180.34??cm?? General:??Alert,??oriented,??well nourished,??no acute distress Neck:??Supple,??non-tender,??no lymphadenopathy ENT:??Right ear is cerumen impacted.?Left ear is clear.?? No indication of infection. Lungs:??Clear to auscultation and percussion,??non-labored ??respiration Heart:??Normal ??Rate,??regular rhythm,??no murmur,??no edema Neurologic:??Awake, alert and oriented,??CN II-XII intact Psychiatric:??Cooperative,??appropriate mood,??appropriate affect Assessment/Plan 1.??Impacted cerumen of right ear??H61.21 ??Cerumen impaction partially cleared with??lavage. ??Procedure tolerated well.?? Reexamination reveals??some??residual cerumen, but a clear path can be seen to the tympanic membrane.?? We discussed using Debrox, warm water flushes,??and avoiding Q-tips??in future.?? If he continues to have problems we can always consider referral to ENT. Problem List/Past Medical History Ongoing Acute cystitis Allergic rhinitis Benign prostatic hyperplasia with outflow obstruction Bipolar affective disorder Bladder calculus BPH - benign prostatic hyperplasia BPH with obstruction/lower urinary tract symptoms Chronic diarrhea Cigarette nicotine dependence in remission COPD - Chronic obstructive pulmonary disease Coronary artery disease involving [place] heart Dysuria Erectile dysfunction Essential hypertension GERD - Gastro-esophageal reflux disease High blood cholesterol/triglycerides Hyperlipidemia Hyperoxaluria Hyperuricosuria Hypogonadism male Incomplete bladder emptying Lesion of bladder Male hypogonadism Morbid obesity due to excess calories PATRICIA - Obstructive sleep apnea Prostatitis Restrictive lung disease Stress fracture of metatarsal bone Tobacco dependence caused by cigarettes Type 2 diabetes mellitus with other circulatory complications Urinary hesitancy Historical Cardiogenic shock DKA, type 2 STEMI (ST elevation myocardial infarction) Procedure/Surgical History ???TURP - Redo transurethral resection of prostate (03/13/2018)???Colonoscopy (10/21/2013)???PCI (percutaneous coronary intervention) of circumflex branch of left coronary artery???Procedure???Procedure???Surgery Medications Anoro Ellipta 62.5 mcg-25 mcg/inh inhalation powder aspirin 81 mg oral delayed release tablet, 81 mg= 1 tab, Oral, Daily Basaglar KwikPen 100 units/mL subcutaneous solution, 60 units, Subcutaneous, BID clopidogrel 75 mg oral tablet, 75 mg= 1 tab, Oral, Daily Freestyle Kaylee 14 day sensor, See instructions, 3 refills furosemide 40 mg oral tablet, 40 mg= 1 tab, Oral, Daily Gvoke HypoPen One Pack 0.5 mg/0.1 mL subcutaneous solution, 0.5 mg= 0.1 mL, Subcutaneous, Once, 2 refills HumaLOG KwikPen 100 units/mL injectable solution, See Instructions, 3 refills HumuLIN R KwikPen (Concentrated) 500 units/mL subcutaneous solution Jardiance 25 mg oral tablet, 25 mg= 1 tab, Oral, every morning ketoconazole 2% topical cream, 1 jorje, Topical, Daily, PRN, 2 refills losartan 50 mg oral tablet, 50 mg= 1 tab, Oral, Daily metFORMIN 500 mg oral tablet, extended release, 500 mg= 1 tab, Oral, BID metoprolol succinate 100 mg oral capsule, extended release, 100 mg, Oral, Daily Mounjaro 10 mg/0.5 mL subcutaneous solution nitroglycerin 0.4 mg sublingual tablet, 0.4 mg= 1 tab, Sublingual, every 5 min, PRN rosuvastatin 40 mg oral tablet, 40 mg= 1 tab, Oral, every night at bedtime spironolactone 25 mg oral tablet, 25 mg= 1 tab, Oral, Daily Allergies lisinopril??(Dry cough) AmLODIPine Besylate Lipitor Social History Alcohol Never Electronic Cigarette/Vaping Electronic Cigarette Use: Use, within last 90 days. Type: Cannabinoid infused. Employment/School Employed, Work/School description: [employer] - [employer]. Home/Environment Lives with Alone.- Comments: 1 dog .. [place].. Substance Use Current, Marijuana, Daily Tobacco Former tobacco user Tobacco Use:.- Comments: [facility] states quit 2002 Family History Alcoholism: Sister. Diabetes mellitus: Mother. Diabetes mellitus type 1: Sister. Family Member(s): ?? FATHER, at age: Unknown. Cause of : Family Member(s): ?? SISTER, at age: Unknown. Cause of : Immunizations Vaccine Date Status SARS-CoV-2 (COVID-19) mRNA BNT-162b2 vax 11/03/2021 Recorded SARS-CoV-2 (COVID-19) mRNA BNT-162b2 vax 04/13/2021 Recorded Comments : COVID-19 (Pfizer) mRNA,LNP-S,PF 30 mcg/0.3mL dose SARS-CoV-2 (COVID-19) mRNA BNT-162b2 vax 02/10/2021 Recorded Comments : COVID-19 (Pfizer) mRNA,LNP-S,PF 30 mcg/0.3mL dose influenza, unspecified formulation 09/05/2011 Recorded Comments : ASHUTOSH Electronically Signed on 05/13/2024 13:33 EDT Venkata Lopez APRN Patient Care team information Care Team Personnel Name: Leo Locke DO Position: Physician Member Role: Primary Care Physician Address: Address: [address] [place] [id number]
--- OUTSIDE RECORDS SUMMARY | 2024-06-18 14:54 | XMS_ITS | Continuity of Care Document ---
Author Organization [facility] Ambulatory Clinics Address [address] [place] [address] Care Team Providers Care Lead Php Developer Name Role Phone Leo Locke DO Primary Care Physician Encounter [facility] NBR [id number] Date(s): 07/03/23 - 07/03/23 [facility] Ambulatory Clinics [address] [place] [address]- [place] Encounter Diagnosis Dyspnea on exertion(Discharge Diagnosis) - 07/03/23 Type 2 diabetes mellitus(Discharge Diagnosis) - 07/03/23 Hyperlipidemia(Discharge Diagnosis) - 07/03/23 Discharge Disposition: Home or Self Care Attending Physician: Leo Locke DO Allergies, Adverse Reactions, Alerts Substance Reaction Severity Status lisinopril Dry cough Moderate Active Lipitor Unknown Active AmLODIPine Besylate Unknown Active Assessment and Plan Future Appointments Future Scheduled Tests Laboratory* Comprehensive Metabolic Panel 10/11/23 * Comprehensive Metabolic Panel 02/08/23 * Hgb A1c 10/11/23 * Hgb A1c 02/08/23 Functional Status 07/03/23 Other exposure to Infectious Disease Non e [...] Date: 10/08/22 Stop Date: 02/22/23 Status: Ordered Flovent HFA 44 mcg/inh inhalation aerosol 2 puffs, Inhale, BID, # 10.6 g, 6 Refill(s), Pharmacy: [facility] Start Date: 07/03/23 Status: Ordered Freestyle Kaylee 14 day sensor Freestyle Kaylee 14 day sensor, Freestyle Kaylee 14 day Sensor, appy new sensor every 14 days per package directions, Supply, See instructions, # 6 EA, 3 Refill(s), Pharmacy: [facility] Start Date: 01/09/23 Status: Ordered High Potency Vitamin D3 125 mcg (5000 intl units) oral capsule 125 mcg = 1 cap, Oral, Daily, # 90 cap, 0 Refill(s) Start Date: 02/02/23 Stop Date: 05/02/23 Status: Ordered ketoconazole 2% topical cream 1 jorje, Topical, Daily, PRN rash, Apply daily to affected area after cleaning/throroughly drying area. Apply daily for 1 week. Repeat as needed., # 60 g, 3 Refill(s), Pharmacy: [facility] Start Date: 05/28/23 Status: Ordered losartan 25 mg oral tablet 25 mg = 1 tab, Oral, Daily, # 90 tab, 3 Refill(s), Pharmacy: [facility] Start Date: 01/19/23 Stop Date: 01/14/24 Status: Ordered metFORMIN 500 mg oral tablet 500 mg = 1 tab, Oral, Daily, # 90 tab, 3 Refill(s), Pharmacy: [facility] Start Date: 01/19/23 Stop Date: 01/14/24 Status: Ordered Ozempic 8 mg/3 mL (2 mg dose) subcutaneous solution 2 mg =, Subcutaneous, every week, in the abdomen, thigh, or upper arm, # 3 mL, 3 Refill(s), Pharmacy: [facility] Start Date: 07/03/23 Status: Ordered Ventolin HFA 90 mcg/inh inhalation aerosol 180 mcg 2 puffs, Inhale, every 4 hr, PRN as needed for wheezing, # 18 g, 4 Refill(s), Pharmacy: [facility] Start Date: 07/03/23 Status: Ordered verapamil 180 mg/12 hours oral [...] Completed Surgery 5 Completed 1calculi 2[facility]. Anup [facility] 3skin tag removal 4wart removal left hand finger as a teenager 5deviated septum 2007 Vital Signs Most recent to oldest [Reference Range]: 1 Temperature Tympanic [36.6-37.9 Deg C] 3 6.4 Deg C *LOW* (07/03/23 9:53 AM) Peripheral Pulse Rate [60-100 bpm] 87 bp m (07/03/23 9:53 AM) Blood Pressure [90-140/60-90 mmHg] 140/8 0mmHg (07/03/23 9:53 AM) Weight 137 kg (07/03/23 9:53 AM) Weight Measured (lbs) 302.033 lb (07/03/23 9:53 AM) Social History Social History Type Response Tobacco Former tobacco user Tobacco Use:. 1 Sex 1ECW states quit 2002 Hospital Discharge Instructions Follow Up Care 07/02/2023 08:50:19 With:Leo Locke DO Address: [address] [place] [phone] When:2 Months Physician Outpatient Note * Leo Locke DO: PERFORM Event Display: Office Clinic Note Physician Authored Date: [id number] ANDREW ALVARADO :1960 Age:62 years Sex:Male Visit Date:07/03/2023 Primary Care Physician: Leo Locke DO Chief Complaint PC- Breathing Attacks History of Present Illness Patient is a 62-year-old male who comes in today??complaining of what he calls breathing attacks.?? He describes them as episodes of feeling short of breath, wheezing, usually brought on by exertion.?? He does have a rescue inhaler which he uses episodically, 2-3 times a week.?? He does smoke marijuana mostly to calm himself??since he is bipolar.?? He says he is used nebulizers in the past whenhe has had these episodes with reasonable effect.?? Never really had any pulmonary function testing.?? Denies any chest pain. ??Had a cardiac??stress test some years ago??which he says was unrevealing.?? I do not have access to those records.?? He says at one time he was told that??his diaphragm??is pushing up on his lungs due to his??abdominal obesity. Review of Systems See HPI otherwise negative. Physical Exam Vitals & Measurements T:??36.4?C ??(Tympanic)?? HR:??87??(Peripheral)?? BP:??140/80?? SpO2:??96%?? WT:??137??kg?? General: Alert and oriented, well nourished,?No??acute distress Lungs: Clear to auscultation and percussion,?Non-labored?? respiration Heart:?Normal? rate,?Regular??rhythm,?No??murmur,?No??gallop,?No??edema Abdomen: Soft, non-tender, non-distended,?Normal? bowel sounds,?No??masses Musculoskeletal:?Normal? range of motion and strength,?No??tenderness,?No??swelling Assessment/Plan 1.??Dyspnea on exertion??R06.09 Etiology is not entirely clear. ??I do not appreciate any wheezing today.?? We will try??a steroid inhaler??to see if that will improve his overall symptoms.?? We will also get some pulm function test??to better document his lung function.?? Signs and symptoms to seek more urgent care. ??We will follow-up in 2 months or sooner as needed. Ordered: Pulmonary Function Test Complete, Routine, 07/03/23, Reason: Dyspnea, Once, Future Order, Dyspnea on exertion ?? Type 2 diabetes mellitus??E11.9 Ordered: Ozempic 8 mg/3 mL (2 mg dose) subcutaneous solution, 2 mg =, Subcutaneous, every week, in the abdomen, thigh, or upper arm, # 3 mL, 3 Refill(s), Pharmacy: [facility] ?? Orders: Ventolin HFA 90 mcg/inh inhalation aerosol, 180 mcg 2 puffs, Inhale, every 4 hr, PRN as needed for wheezing, # 18 g, 4 Refill(s), Pharmacy: [facility] Flovent HFA 44 mcg/inh inhalation aerosol, 2 puffs, Inhale, BID, # 10.6 g, 6 Refill(s), Pharmacy: [facility] Future Orders Pulmonary Function Test Complete, Routine, 07/03/23, Reason: Dyspnea, Once, Future Order, Dyspnea on exertion Follow Up Instructions With When Contact Information Leo Locke, DO Within 2 Months [address] [place] [address] Additional Instructions: Problem List/Past Medical History Ongoing Acute cystitis Allergic rhinitis Benign prostatic hyperplasia with outflow obstruction Bipolar affective disorder Bladder calculus BPH - benign prostatic hyperplasia BPH with obstruction/lower urinary tract symptoms Chronic diarrhea Chronic obstructive pulmonary disease, unspecified Cigarette nicotine dependence in remission COPD - Chronic obstructive pulmonary disease Dysuria Erectile dysfunction Essential hypertension GERD - Gastro-esophageal reflux disease High blood cholesterol/triglycerides Hyperlipidemia Hyperoxaluria Hyperuricosuria Hypogonadism male Incomplete bladder emptying Lesion of bladder Male hypogonadism Morbid obesity due to excess calories Obesity-morbid PATRICIA - Obstructive sleep apnea Overeating Polyuria Prostatitis Restrictive lung disease Stress fracture of metatarsal bone Tobacco dependence caused by cigarettes Type 2 diabetes mellitus Type 2 diabetes mellitus without complication, without long-term current use of insulin Urinary hesitancy Historical No qualifying data Procedure/Surgical History ???TURP - Redo transurethral resection of prostate (03/13/2018)???Colonoscopy (10/21/2013)???Procedure???Procedure???Surgery Medications Ativan 1 mg oral tablet, 1 mg= 1 tab, Oral, BID, PRN Flovent HFA 44 mcg/inh inhalation aerosol, 2 puffs, Inhale, BID, 6 refills Freestyle Kaylee 14 day sensor, See instructions, 3 refills High Potency Vitamin D3 125 mcg (5000 intl units) oral capsule, 125 mcg= 1 cap, Oral, Daily ketoconazole 2% topical cream, 1 jorje, Topical, Daily, PRN, 3 refills losartan 25 mg oral tablet, 25 mg= 1 tab, Oral, Daily, 3 refills metFORMIN 500 mg oral tablet, 500 mg= 1 tab, Oral, Daily, 3 refills Ozempic 8 mg/3 mL (2 mg dose) subcutaneous solution, 2 mg, Subcutaneous, every week, 3 refills Ventolin HFA 90 mcg/inh inhalation aerosol, 180 mcg= 2 puffs, Inhale, every 4 hr, PRN, 4 refills verapamil 180 mg/12 hours oral tablet, extended release, 180 mg= 1 tab, Oral, every 12 hr, 3 refills Vraylar 3 mg oral capsule, 3 mg= 1 cap, Oral, Daily Allergies lisinopril??(Dry cough) AmLODIPine Besylate Lipitor Social History Alcohol Never Electronic Cigarette/Vaping Electronic Cigarette Use: Use, within last 90 days. Type: Cannabinoid infused. Employment/School Employed, Work/School description: [employer] - [employer]. Home/Environment Lives with Alone.- Comments: 1 dog .. [place].. Substance Use Current, Marijuana, Daily Tobacco Former tobacco user Tobacco Use:.- Comments: [facility] states quit 2002 Family History Alcoholism: Sister. [...] Recorded Comments : ASHUTOSH Electronically Signed on 07/03/23 10:20 AM Leo Locke DO Patient Care team information Care Team Personnel Name: Leo Locke DO Position: Physician Member Role: Primary Care Physician Address: Address: [address] [place] [phone]
--- OUTSIDE RECORDS SUMMARY | 2024-06-18 14:54 | XMS_ITS | Continuity of Care Document ---
Author Organization [facility] Address [address] [place] [phone] Care Team Providers Care Community Leader Name Role Phone Leo Locke DO Primary Care Physician [phone] Encounter LTTL_[place] FIN NBR [id number] Date(s): 01/02/24 - 01/02/[address] [phone]- [place] Discharge Disposition: Home or Self Care Attending Physician: Leo Locke DO Admitting Physician: Leo Locke DO Referring Physician: Leo Locke DO Allergies, Adverse Reactions, Alerts Substance Reaction Severity Status lisinopril Dry cough Moderate Active Lipitor Unknown Active AmLODIPine Besylate Unknown Active Assessment and Plan Future Appointments Future Scheduled Tests Laboratory* Vitamin D 25 Hydroxy Level 01/01/24 * Comprehensive Metabolic Panel 10/11/23 * Comprehensive Metabolic Panel 01/01/24 * Comprehensive Metabolic Panel 02/08/23 * Hgb A1c 10/11/23 * Hgb A1c 02/08/23 Immunizations Given and [...] # 30 tab, 0 Refill(s) Start Date: 12/17/23 Status: Ordered clopidogrel 75 mg oral tablet 75 mg = 1 tab, Oral, Daily, # 30 tab, 0 Refill(s) Start Date: 12/17/23 Status: Ordered Freestyle Kaylee 14 day sensor Freestyle Kaylee 14 day sensor, Freestyle Kaylee 14 day Sensor, appy new sensor every 14 days per package directions, Supply, See instructions, # 6 EA, 3 Refill(s), Pharmacy: [facility] Start Date: 01/09/23 Status: Ordered furosemide 40 mg oral tablet 40 mg = 1 tab, Oral, Daily, 0 Refill(s) Start Date: 12/17/23 Status: Ordered HumaLOG KwikPen 100 units/mL injectable solution See Instructions, inject 3x a day 10 units for small meals 15 units for medium meals 20 units for large meals, # 15 mL, 3 Refill(s), Pharmacy: [facility], 179.5, cm, 12/12/23 14:44:00 EST, Height, 137, kg, 12/12/23 14:48:00 EST, Weight Dosing Start Date: 12/31/23 Status: Ordered insulin glargine 50 units =, Subcutaneous, BID, 0 Refill(s) Start Date: 12/17/23 Status: Ordered ketoconazole 2% topical cream See Instructions, use as needed, 0 Refill(s) Start Date: 12/17/23 Status: Ordered losartan 25 mg oral tablet 25 mg = 1 tab, Oral, Daily, # 90 tab, 3 Refill(s), Pharmacy: [facility] Start Date: 01/19/23 Stop Date: 01/14/24 Status: Ordered losartan 50 mg oral tablet 50 mg = 1 tab, Oral, Daily, 0 Refill(s) Start Date: 12/17/23 Status: Ordered metFORMIN 500 mg oral tablet, extended release 1,000 mg = 2 tab, Oral, Daily, 0 Refill(s) Start Date: 12/17/23 Status: Ordered metoprolol succinate 100 mg =, Oral, Daily, 0 Refill(s) Start Date: 12/17/23 Status: Ordered nitroglycerin 0.4 mg sublingual tablet 0.4 mg = 1 tab, Sublingual, every 5 min, PRN as needed for chest pain, 0 Refill(s) Start Date: 12/17/23 Status: Ordered NovoLOG FlexPen See Instructions, inject 3 times/day. 10 units for small meals, 15 uits for medium meals, 20 units for large meals, 0 Refill(s) Start Date: 12/17/23 Status: Ordered Ozempic 8 mg/3 mL (2 mg dose) subcutaneous solution 2 mg =, Subcutaneous, every week, in the abdomen, thigh, or upper arm, # 3 mL, 3 Refill(s), Pharmacy: [facility] Start Date: 07/03/23 Status: Ordered rosuvastatin 40 mg oral tablet 40 mg = 1 tab, Oral, every night at bedtime, 0 Refill(s) Start Date: 12/17/23 Status: Ordered spironolactone 25 mg oral tablet 25 mg = 1 tab, Oral, Daily, 0 Refill(s) Start Date: 12/17/23 Status: Ordered Problem List Condition Confirmation Course Effective Dates Status H ealth Status Informant Acute cystitis 1 Confirmed Active Allergic rhinitis Confirmed Active Benign prostatic hyperplasia with outflow obstruction Confirmed Active BPH with obstruction/lower urinary tract symptoms 2 Confirmed Active Bipolar affective disorder 3 Confirmed Active Bladder calculus 4 Confirmed Active BPH - benign prostatic hyperplasia Confirmed Active Cardiogenic shock Confirmed 12/12/23 Active Chronic diarrhea 5 Confirmed Active Chronic obstructive pulmonary disease, unspecified Confirmed Active COPD - Chronic obstructive pulmonary disease Confirmed Active Dysuria 6 Confirmed Active Erectile dysfunction Confirmed Active Essential hypertension Confirmed Active GERD - Gastro-esophageal reflux disease Confirmed Active High blood cholesterol/triglycer ides 7 Confirmed Active Hyperlipidemia Confirmed Active Hyperoxaluria 8 Confirmed Active HTN (hypertension) Confirmed Active Incomplete bladder emptying 9 Confirmed Active Hyperuricosuria 10 Confirmed Active DKA, type 2 Confirmed 12/12/23 Active Lesion of bladder 11 Confirmed Active Male hypogonadism Confirmed Active Hypogonadism male 12 Confirmed Active Morbid obesity due to excess calories 13 Confirmed Active STEMI (ST elevation myocardial infarction) Confirmed 12/12/23 Active Obesity-morbid Confirmed Active PATRICIA - Obstructive [...] Completed Surgery 5 Completed 1calculi 2Dr. Anup [facility] 3skin tag removal 4wart removal left hand finger as a teenager 5deviated septum 2007 Social History Social History Type Response Tobacco Former tobacco user Tobacco Use:. 1 Sex 1ECW states quit 2002 Patient Care team information Care Team Personnel Name: Leo Locke DO Position: Physician Member Role: Primary Care Physician Address: Address: [address] [place] [phone] [place]
--- OUTSIDE RECORDS SUMMARY | 2024-06-18 14:54 | XMS_ITS | Continuity of Care Document ---
Author Organization [facility] Address [address] [place] [id number] Care Team Providers Care Fur Remodeler Name Role Phone Leo Locke DO Primary Care Physician Encounter LTTL_[place] FIN NBR [id number] Date(s): 12/12/23 - 12/12/[address] [address] Encounter Diagnosis ST elevation (STEMI) myocardial infarction of unspecified site(Final) - Morbid (severe) obesity due to excess calories(Final) - Body mass index [BMI] 40.0-44.9, adult(Final) - Personal history of nicotine dependence(Final) - Discharge Disposition: Transfer to Higher Level of Care Attending Physician: Prasanth Joiner MD Admitting Physician: Prasanth Joiner MD Allergies, Adverse Reactions, Alerts Substance Reaction Severity Status lisinopril Dry cough Moderate Active Lipitor Unknown Active AmLODIPine Besylate Unknown Active Assessment and Plan Extracted from: Title:ED Provider Note Author:Osiris Desir Date:12/12/23 Ordered: heparin IV additive 25,000 units [12 unit/kg/hr] + Premix Diluent 500 mL, Total Volume (mL): 500, 500 mL, Soln-IV, IV, 32.88 mL/hr, Start Date: 12/12/23 14:49:00 EST, 137 kg, Populate Charting Weight From Order, 2.61, m2 Comprehensive Metabolic Panel, Blood, Stat, 12/12/23 14:40:00 EST, Once, Nurse collect Magnesium Level, Blood, Stat, 12/12/23 14:40:00 EST, Once, Nurse collect Transfer to Another Facility, 12/12/23 15:28:00 EST XR Chest 1 View, 12/12/23 14:40:00 EST, Stat, Reason: pain, Transport Mode: Portable Future Appointments Future Scheduled Tests Laboratory* Comprehensive [...] mRNA,LNP-S,PF 30 mcg/0.3mL dose 2Result Comment: COVID-19 ([email or web address]) mRNA,LNP-S,PF 30 mcg/0.3mL dose 3Result Comment: ASHUTOSH Medications Anoro Ellipta 62.5 mcg-25 mcg/inh inhalation powder 180 EA, 0 Refill(s), 0 Refill(s) Start Date: 10/09/23 Status: Ordered Ativan 1 mg oral tablet 1 mg = 1 tab, Oral, BID, PRN as needed for anxiety, # 40 tab, 0 Refill(s) Start Date: 10/08/22 Stop Date: 02/22/23 Status: Ordered Freestyle Kaylee 14 day sensor Freestyle Kaylee 14 day sensor, Freestyle Kaylee 14 day Sensor, appy new sensor every 14 days per package directions, Supply, See instructions, # 6 EA, 3 Refill(s), Pharmacy: [facility] Start Date: 01/09/23 Status: Ordered losartan 25 mg oral tablet 25 mg = 1 tab, Oral, Daily, # 90 tab, 3 Refill(s), Pharmacy: [facility] Start Date: 01/19/23 Stop Date: 01/14/24 Status: Ordered metFORMIN 500 mg oral tablet 500 mg = 1 tab, Oral, Daily, # 90 tab, 3 Refill(s), Pharmacy: [facility] Start Date: 01/19/23 Stop Date: 01/14/24 Status: Ordered Ozempic 8 mg/3 mL (2 mg dose) subcutaneous solution 2 mg =, Subcutaneous, every week, in the abdomen, thigh, or upper arm, # 3 mL, 3 Refill(s), Pharmacy: [facility] Start Date: 07/03/23 Status: Ordered verapamil 180 mg/12 hours oral tablet, extended release 180 mg = 1 tab, Oral, every 12 hr, # 180 tab, 3 Refill(s), Pharmacy: [facility] Start Date: 01/19/23 Stop Date: 01/14/24 Status: Ordered Problem List Condition Confirmation Course [...] finger as a teenager 5deviated septum 2007 Results Laboratory List Name Date .Manual Differential (LTTL) 12/12/23 CBC w/ Diff 12/12/23 Comprehensive Metabolic Panel (CMP) 12/12 Magnesium Level 12/12/23 Troponin-I High Sensitivity 12/12/23 Most recent to oldest [Reference Range]: 1 WBC [4.8-10.8 K/mcL] 23.6 K/mcL *HI* (12/12/23 2:35 PM) RBC [4.70-6.10 Million/mcL] 5.44 Million /mcL (12/12/23 2:35 PM) Segs Man 48 *NA* (12/12/23 2:35 PM) Lymph Man [20.5-51.1 %] 32.0 % (12/12/23 2:35 PM) [place] Man [1.7-9.3 %] 7.0 % (12/12/23 2:35 PM) Eos Man [0.00-3.00 %] 1.00 % (12/12/23 2:35 PM) BUN [7-25 mg/dL] 18 mg/dL (12/12/23 2:35 PM) Glucose Level [70-109 mg/dL] 308 mg/dL *HI* (12/12/23 2:35 PM) Lymph, Atyp Man 9 % *NA* (12/12/23 2:35 PM) Potassium Level [3.5-5.1 mmol/L] 4.3 mmo l/L 1 (12/12/23 2:35 PM) MCV [80.0-94.0 fL] 85.2 fL (12/12/23 2:35 PM) RBC Morph [Normal] Normal (12/12/23 2:35 PM) AST [13-39 IntlUnit/L] 34 IntlUnit/L (12/12/23 2:35 PM) ALT [7-52 IntlUnit/L] 33 IntlUnit/L (12/12/23 2:35 PM) MCHC [32.0-37.0 g/dL] 34.0 g/dL (12/12/23 2:35 PM) Osmolality [275-295 mOsm/kg] 284 mOsm/kg (12/12/23 2:35 PM) Sodium Level [136-145 mmol/L] 135 mmol/L *LOW* (12/12/23 2:35 PM) Hct [42.0-52.0 %] 46.3 % (12/12/23 2:35 PM) Calcium Level [8.6-10.3 mg/dL] 8.5 mg/dL *LOW* (12/12/23 2:35 PM) Albumin Level [3.5-5.7 g/dL] 3.8 g/dL (12/12/23 2:35 PM) Protein Total [6.4-8.9 g/dL] 6.7 g/dL (12/12/23 2:35 PM) MCH [27.0-31.0 pg] 29.0 pg (12/12/23 2:35 PM) Magnesium Level [1.9-2.7 mg/dL] 1.5 mg/d L *LOW* (12/12/23 2:35 PM) Bilirubin Total [0.3-1.0 mg/dL] 1.7 mg/d L *HI* (12/12/23 2:35 PM) Hgb [14.0-18.0 g/dL] 15.8 g/dL (12/12/23 2:35 PM) Alk Phos [34-104 IntlUnit/L] 41 IntlUnit /L (12/12/23 2:35 PM) MPV [7.4-10.4 fL] 8.3 fL (12/12/23 2:35 PM) Band Man 3 % *NA* (12/12/23 2:35 PM) Platelets [130-400 K/mcL] 326 K/mcL (12/12/23 2:35 PM) CO2 [21-31 mmol/L] 18 mmol/L *LOW* (12/12/23 2:35 PM) Chloride Level [98-107 mmol/L] 102 mmol/ L (12/12/23 2:35 PM) RDW-CV [11.5-14.5 %] 13.0 % (12/12/23 2:35 PM) A/G Ratio [1.0-2.5 g/dL] 1.3 g/dL (12/12/23 2:35 PM) BUN/Creat Ratio [8.0-20.0] 11.3 (12/12/23 2:35 PM) Globulin [2.3-3.5 g/dL] 2.9 g/dL (12/12/23 2:35 PM) Slide Review Man Diff (12/12/23 2:35 PM) Abs Baso Man [0.0-0.2 K/mcL] 0.0 K/mcL (12/12/23 2:35 PM) Abs Eos Man [0.0-0.2 K/mcL] 0.2 K/mcL (12/12/23 2:35 PM) Abs Lymph Man [1.2-3.4 K/mcL] 7.6 K/mcL *HI* (12/12/23 2:35 PM) Abs [place] Man [0.1-0.6 K/mcL] 1.7 K/mcL *HI* (12/12/23 2:35 PM) Abs Neut Man [1.4-6.5 K/mcL] 12.0 K/mcL *HI* (12/12/23 2:35 PM) Creatinine Level [0.70-1.30 mg/dL] 1.60 mg/dL *HI* (12/12/23 2:35 PM) Plt Estimation Normal (12/12/23 2:35 PM) Troponin-I HS [<=20 ng/L] 755 ng/L 2, 3 *CRIT* (12/12/23 2:35 PM) Anion Gap [3.0-12.0] 15.0 *HI* (12/12/23 2:35 PM) Baso Man [0.0-0.8 %] 0.0 % (12/12/23 2:35 PM) eGFR CKD-EPI [>=60 mL/min/1.73 m2] 49 mL /min/1.73 m2 *LOW* (12/12/23 2:35 PM) 1Result Comment: Specimen slightly hemolyzed 2Result Comment: Critical Result [id number] Called to and read back by: CLIFTON PALACIOS at: 12/12/2023 15:35:40 by:LAW 3Interpretive Data: The [facility] ACCESS high-sensitivity Troponin I (hsTNI) 99 percentile cutoffs forhealthy adults are 12 ng/L or less for females and 20 ng/L or less for males. SERIAL MEASUREMENT IS HIGHLY RECOMMENDED for the diagnosis or exclusion of Acute Coronary Syndromes(ACS). Please refer to the High-Sensitivity Troponin Algorithm 2022 for guidance. As with all markers of cardiac injury, elevations of hsTnI do not in and of themselves indicate thepresence of an ischemic mechanism. Many other disease states can be associated with elevations via mechanisms different from those that cause injury in patients with ACS. These include trauma (contusion, ablation, pacing); congestive heart failure; pulmonary embolism; kidney failure; and myocarditis. Clinical judgement is necessary to distinguish patients who have ischemic heart disease from those who do not. Radiology Reports * Exam Date Time Procedure Performing Provider Status 12/12/23 3:36 PM XR Chest 1 View Evy Ojeda; Adrianna th (Verified) Notes: (XR Chest 1 View) Reason For Exam: pain XR Chest 1 View EXAM DESCRIPTION: XR Chest 1 View 12/12/2023 INDICATION: PAIN COMPARISON: 11/23/2015 FINDINGS: Clear lungs with no focal infiltrate or pulmonary edema. Increased density overlying both lung bases most consistent with soft tissue attenuation artifact. Normal cardiomediastinal contour. Stable mild fullness in the right paratracheal region most consistent with vascular structures. No significant pleural effusion or pneumothorax. IMPRESSION: No active chest disease. JOB #: [id number] Final Signed by: Sergey Sage MD Signed (Electronic Signature): 12/12/2023 3:41 pm Vital Signs Most recent to oldest [Reference Range]: 1 2 3 Temperature Temporal Artery [36-38 Deg C] 37 Deg C (12/12/23 2:33 PM) Peripheral Pulse Rate [60-100 bpm] 97 bpm (12/12/23 4:15 PM) 92 bpm (12/12/23 3:45 PM) 94 bpm (12/12/23 3:30 PM) Heart Rate Monitored [60-100 bpm] 96 bpm (12/12/23 4:15 PM) 95 bpm (12/12/23 3:45 PM) 95 bpm (12/12/23 3:30 PM) Respiratory Rate [12-24 br/min] 29 br/min *HI* (12/12/23 4:15 PM) 20 br/min (12/12/23 3:45 PM) 24 br/min (12/12/23 3:30 PM) Blood Pressure [90-140/60-90 mmHg] 120/89mmHg (12/12/23 4:15 PM) 133/84mmHg (12/12/23 3:45 PM) 131/84mmHg (12/12/23 2:45 PM) Mean Arterial Pressure, Cuff [70-110 mmHg] 99 mmHg (12/12/23 4:15 PM) 100 mmHg (12/12/23 3:45 PM) 100 mmHg (12/12/23 2:45 PM) Mean Arterial Pressure Cuff 98 mmHg (12/12/23 4:15 PM) 99 mmHg (12/12/23 3:45 PM) 98 mmHg (12/12/23 2:45 PM) Weight 137 kg (12/12/23 2:33 PM) Weight Dosing 137.000 kg (12/12/23 2:33 PM) Height 179.5 cm (12/12/23 2:33 PM) Body Mass Index 42.52 kg/m2 (12/12/23 2:33 PM) Social History Social History Type Response Tobacco Former tobacco user Tobacco Use:. 1 Sex 1ECW states quit 2002 Physician Emergency department Note * Prasanth Joiner MD: PERFORM Event Display: ED Note Physician Authored Date: [id number] ANDREW ALVARADO :1960 Age:63 years Sex:Male Visit Date:12/12/2023 Primary Care Physician: Leo Locke DO Basic Information Time Seen: Prasanth Joiner MD / 12/12/2023 14:37 Chief Complaint C/O CP and SOB since last night with diaphoresis that started today. Received 324 ASA and 1 nitro en route. EMS called STEMI alert. History Of Present Illness: Patient comes in with complaint of??ongoing and episodic chest pain since??last night. ??He states that he was able to sleep normally throughout the night??and when he woke up??the pain was not there. ??Patient started around 6 PM last night. ??He denies any recent fever chills cough or other problems.?? He states that he had??an outpatient appointment today??within the past hour and his blood pressure was being taken and he was told that it was high??and he states that is when his chest pressure came back and he was now diaphoretic.?? He comes in by ambulance after??which she was given??nitroglycerin and aspirin. ??He states that the nitro did seem to help because his??discomfort is down from an 8 out of 10 to a 6 out of 10. ??He currently denies nausea diaphoresis shortness of breath??or other problems. ??He states prior to yesterday he has not had??chest pain like this before. Review of Systems: Review of systems negative other than that stated above Physical Exam Vitals & Measurements T:??37?C ??(Temporal Artery)?? HR:??83??(Monitored)?? RR:??24?? BP:??131/84?? SpO2:??96%?? HT:??179.5??cm?? WT:??137??kg?? BMI:??42.52?? O2 Therapy:??Room air?? General: Alert and oriented, well nourished, no acute distress. Eye: PERRL, EOMI, normal conjunctiva. HENT: Normocephalic,??normal hearing, moist oral mucosa, no scleral icterus, . Neck: Supple, non-tender, no carotid bruits, no JVD, no lymphadenopathy. No rigidity Lungs: Clear to auscultation and percussion, non-labored respiration. Heart: Normal rate, regular rhythm, no murmur, gallop or edema. Abdomen: Soft, non-tender, non-distended, normal bowel sounds, no masses. Musculoskeletal: Normal range of motion and strength, no tenderness or swelling. Skin: Skin is warm, dry and appropriate for ethnicity, no rashes or lesions. Neurologic: Awake, alert and oriented X4, CN II-XII intact. Psychiatric: Cooperative, appropriate mood and affect. Procedure No Qualifying Data Reexamination/Reevaluation When patient first arrived he was given another nitroglycerin which she states brought the??discomfort down to a 4 out of 10??in severity.?? About 5 minutes later another EKG was done which??showed??no significant changes. ??I faxed this??to??[facility] cardiology??at 1500. ??At 1520??I spoke to thecardiologist who looked at the EKGs??and she??felt that??a posterior EKG and??more serial EKGs??would help??determine??whether or not this??needs urgent catheter??criteria.?? About??7 minutes later??at 1527??cardiology called me back and said that??they feel that??this should be??considered a STEMIcriteria??and they recommended??adding??to the heparin and aspirin that has already been given,??300 mg of Plavix and??giving TNKase.?? They would accept the patient in transfer to go directly to the??Security Agent.?? I explained this to the patient who agrees and understands.?? The??posterior EKG does not show significant??elevation. ??A third regular EKG does show what looks like more??elevation??inferiorly.?? Patient remains hemodynamically stable??with a pulse of 90 blood pressure 130 through 84.?? He was administered the TNKase Plavix heparin aspirin??and we are awaiting ambulance transfer??to [facility] for the catheter lab Assessment/Plan Ordered: heparin IV additive 25,000 units [12 unit/kg/hr] + Premix Diluent 500 mL, Total Volume (mL): 500, 500 mL, Soln-IV, IV, 32.88 mL/hr, Start Date: 12/12/23 14:49:00 EST, 137 kg, Populate Charting WeightFrom Order, 2.61, m2 Comprehensive Metabolic Panel, Blood, Stat, 12/12/23 14:40:00 EST, Once, Nurse collect Magnesium Level, Blood, Stat, 12/12/23 14:40:00 EST, Once, Nurse collect Transfer to Another Facility, 12/12/23 15:28:00 EST XR Chest 1 View, 12/12/23 14:40:00 EST, Stat, Reason: pain, Transport Mode: Portable Medication Reconciliation Unchanged Durable Medical Equipment for Prescription (Freestyle Kaylee 14 day sensor)Freestyle Kaylee 14 day Sensor, appy new sensor every 14 days per package directions. Refills: 3. ?? LORazepam (Ativan 1 mg oral tablet)1 tab Oral (given by mouth) 2 times a day as needed as needed for anxiety for 20 Days. ?? losartan (losartan 25 mg oral tablet)1 tab Oral (given by mouth) every day for 90 Days. Refills: 3. ?? metFORMIN (metFORMIN 500 mg oral tablet)1 tab Oral (given by mouth) every day for 90 Days. Refills:3. ?? semaglutide (Ozempic 8 mg/3 mL (2 mg dose) subcutaneous solution)2 Milligrams Subcutaneous (under the skin) every week. in the abdomen, thigh, or upper arm. Refills: 3. ?? umeclidinium-vilanterol (Anoro Ellipta 62.5 mcg-25 mcg/inh inhalation powder)180 EA, 0 Refill(s). ?? verapamil (verapamil 180 mg/12 hours oral tablet, extended release)1 tab Oral (given by mouth) every 12 hours for 90 Days. Refills: 3. Problem List/Past Medical History Ongoing Acute cystitis [...] Redo transurethral resection of prostate (03/13/2018)???Colonoscopy (10/21/2013)???Procedure???Procedure???Surgery Medication Administration Given heparin IV additive 25,000 units [12 unit/kg/hr] + Premix Diluent 500 mL, IV heparin, 4000 units, IV Push nitroglycerin 0.4 mg sublingual tablet, 0.4 mg, Sublingual Plavix, 300 mg, Oral TNKase, 50 mg, IV Allergies lisinopril??(Dry cough) AmLODIPine Besylate Lipitor Social History Alcohol Never Electronic Cigarette/Vaping Electronic Cigarette Use: Use, within last 90 days. Type: Cannabinoid infused. Employment/School Employed, Work/School description: [employer]. Home/Environment Lives with Alone.- Comments: 1 dog .. [place].. Substance Use Current, Marijuana, Daily Tobacco Former tobacco user Tobacco Use:.- Comments: [facility] states quit 2002 Family History Alcoholism: Sister. Diabetes mellitus: Mother. Diabetes mellitus type 1: Sister. Family Member(s): ?? FATHER, at age: Unknown. Cause of : Family Member(s): ?? SISTER, at age: Unknown. Cause of : Diagnostic Results ECG EKG is a sinus rhythm??at a rate of 76. ??There is what looks like 1/2 mm elevation in leads II, III, aVF and reciprocal??ST depression in V2 and V3. Diagnostic Study Interpretation: Chest x-ray negative for obvious acute process Lab Results CBC and Differential?? LATEST RESULTS?? WBC?? 12/12/23 14:35?? 23.6 ??High?? RBC?? 12/12/23 14:35?? 5.44?? Hgb?? 12/12/23 14:35?? 15.8?? Hct?? 12/12/23 14:35?? 46.3?? MCV?? 12/12/23 14:35?? 85.2?? MCH?? 12/12/23 14:35?? 29.0?? MCHC?? 12/12/23 14:35?? 34.0?? RDW-CV?? 12/12/23 14:35?? 13.0?? Platelets?? 12/12/23 14:35?? 326?? MPV?? 12/12/23 14:35?? 8.3?? Segs Man?? 12/12/23 14:35?? 48?? Lymph Man?? 12/12/23 14:35?? 32.0?? [place] Man?? 12/12/23 14:35?? 7.0?? Eos Man?? 12/12/23 14:35?? 1.00?? Baso Man?? 12/12/23 14:35?? 0.0?? Band Man?? 12/12/23 14:35?? 3?? Lymph, Atyp Man?? 12/12/23 14:35?? 9?? Abs Neut Man?? 12/12/23 14:35?? 12.0 ??High?? Abs Lymph Man?? 12/12/23 14:35?? 7.6 ??High?? Abs [place] Man?? 12/12/23 14:35?? 1.7 ??High?? Abs Eos Man?? 12/12/23 14:35?? 0.2?? Abs Baso Man?? 12/12/23 14:35?? 0.0?? RBC Morph?? 12/12/23 14:35?? Normal?? Plt Estimation?? 12/12/23 14:35?? Normal?? Slide Review?? 12/12/23 14:35?? Man Diff? Cardiac Isoenzymes?? LATEST RESULTS?? Troponin-I HS?? 12/12/23 14:35?? 755 ??Critical? Electronically Signed on 12/12/23 03:44 PM Prasanth Joiner MD Patient Care team information Care Team Personnel Name: Leo Locke DO Position: Physician Member Role: Primary Care Physician Address: Address: [address] [place] [id number]
--- OUTSIDE RECORDS SUMMARY | 2024-06-18 14:55 | XMS_ITS | Encounter Summary ---
Author Organization [facility] Address [facility] [place] [address] Care Team Providers Care Machine Boss Name Role Phone Leo Alegre DO Primary Care Provider [phone] Encounter Details Date Type Department Care Team (Latest Contact Info) Description 03/21/2024 Travel Social History Tobacco Use Types Packs/Day Years Used Date Smoking Tobacco: Former Cigarettes 2.8 30 1 986 - 2016 Smokeless Tobacco: Never Comments:Patient quit smokin g initially in 2002 then relapsed for a brief period of time and quit again in 2016. Alcohol Use Standard Drinks/Week Comments Not Currently 0 (1 standard drink = 0.6 oz pur e alcohol) [facility] Utilities Answer Date Recorded In the past 12 months has th e electric, gas, oil, or water company threatened to shut off services in your home? No 12/13/2023 Hunger Vital Sign Answer Date Recorded Within the past 12 months, y ou worried that your food would run out before you got the money to buy more. Never true 12/13/19 24 Within the past 12 months, t he food you bought just didn't last and you didn't have money to get more. Never true 12/13/2023 PRAPARE - Transportation Answer Date Re corded In the past 12 months, has l ack of transportation kept you from medical appointments or from getting medications? No 11/2023 In the past 12 months, has l ack of transportation kept you from meetings, work, or from getting things needed for daily living? No 12/13/2023 Housing Stability Vital Sign Answer Jose Luis e Recorded In the last 12 months, was t here a time when you were not able to pay the mortgage or rent on time? No 12/13/2023 In the last 12 months, how many places have you lived? 1 12/13/2023 In the last 12 months, was t here a time when you did not have a steady place to sleep or slept in a detention (including now)? No 12/13/2023 IPV Inpatient Questions Answer Date Recorded Does Anyone Try to Keep You From Having Contact with Others or Doing Things Outside Your Home? no 12/12/2023 Feels Threatened by Someone no 11/14 Feels Unsafe at Home or Work/School no 12/12/2023 Physical Signs of Abuse Present no 12/12/2023 Sex and Gender Information Value Date Recorded Sex Assigned at Not on file Gender Identity Not on file Sexual Orientation Not on file documented as of this encounter Plan of Treatment Upcoming Encounters Date Type Department Care Team (Late st Contact Info) Description 07/02/2024 3:00 PM EDT Office Visit Endocrinology at [place] [address] Leo Flor MD [facility] [place] [address] 08/12/2024 3:40 PM EDT Office Visit Pulmonology at [address] Siva Harrison MD [facility] [place] [address] 09/18/2024 1:00 PM EST Office Visit [place] [address] Jj Davis MD [facility] [place] [address] documented as of this encounter Visit Diagnoses Not on filedocumented in this encounter Care Teams Machine Boss Relationship Specialty Start Date End Date Leo Alegre DO [address] [place] [id number] PCP - General Family Medicine 03/03/21 documented as of this encounter
--- OUTSIDE RECORDS SUMMARY | 2024-06-18 14:55 | XMS_ITS | Continuity of Care Document ---
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) - 01/08/24 Coronary artery disease involving [place] heart(Discharge Diagnosis) - 01/08/24 Morbid obesity due to excess calories(Discharge Diagnosis) - 01/08/24 Atherosclerotic heart disease of [place] coronary artery without angina pectoris (Final) - Essential (primary) hypertension(Final) - Type 2 diabetes mellitus with other circulatory complications(Final) - Chronic obstructive pulmonary disease, unspecified(Final) - Morbid (severe) obesity due to excess calories(Final) - Personal history of nicotine dependence(Final) - [employer] (current) use of insulin(Final) - prison (current) use of oral hypoglycemic drugs(Final) - Discharge Disposition: Home or Self Care Attending Physician: Leo Locke DO Allergies, Adverse Reactions, Alerts Substance Reaction Severity Status lisinopril Dry cough Moderate Active Lipitor Unknown Active AmLODIPine Besylate Unknown Active Assessment and Plan Extracted from: Title:Office Visit Note Author:Leo Locke DO Date:01/08/24 1.??Coronary artery disease involving [place] heart??I25.10 Seems to be recovering okay. ??Will continue his current medication regimen.?? Encouraged to eat more healthy.?? Recheck labs prior to next visit. Ordered: Comprehensive Metabolic Panel, Blood, Routine, *Est. 04/07/24 +/- 21 days, Once, Lab Collect, Type 2 diabetes mellitus with other circulatory complications Essential hypertension Coronary artery disease involving [place] heart, Order for future visit Lipid Panel, Blood, Routine, *Est. 04/07/24 +/- 21 days, Once, Lab Collect, Coronary artery disease involving [place] heart, Order for future visit ?? 2.??Essential hypertension??I10 Blood pressure is well-controlled. ??Will continue current medication regimen. Ordered: Comprehensive Metabolic Panel, Blood, Routine, *Est. 04/07/24 +/- 21 days, Once, Lab Collect, Type 2 diabetes mellitus with other circulatory complications Essential hypertension Coronary artery disease involving [place] heart, Order for future visit ?? 3.??Type 2 diabetes mellitus with other circulatory complications??E11.59 A1c improving, continue to work??with diabetes education. Ordered: Comprehensive Metabolic Panel, Blood, Routine, *Est. 04/07/24 +/- 21 days, Once, Lab Collect, Type 2 diabetes mellitus with other circulatory complications Essential hypertension Coronary artery disease involving [place] heart, Order for future visit Hgb A1c, Blood, Routine, *Est. 04/07/24 +/- 21 days, Once, Lab Collect, Type 2 diabetes mellitus with other circulatory complications, Order for future visit ?? 4.??COPD - Chronic obstructive pulmonary disease??J44.9 Breathing is at baseline. ??Will continue current medication regimen. ?? 5.??Morbid obesity due to excess calories??E66.01 Has been losing a little weight.?? Continue??lifestyle changes. ?? Orders: Basaglar KwikPen 100 units/mL subcutaneous solution, 50 units =, Subcutaneous, BID, # 15 mL, 0 Refill(s), other reason (Rx) metFORMIN 500 mg oral tablet, extended release, 500 mg = 1 tab, Oral, BID, # 60 tab, 0 Refill(s), other reason (Rx) Future Appointments Future Scheduled Tests Laboratory* Comprehensive Metabolic Panel 04/07/24 * Lipid Panel 04/07/24 * Hgb A1c 04/07/24 Immunizations Given and Recorded Vaccine Date Status Refusal Reason SARS-CoV-2 (COVID-19) mRNA BNT-162b2 vax 11/03/21 Recorded SARS-CoV-2 (COVID-19) mRNA BNT-162b2 vax 1 04/13/21 Recorded SARS-CoV-2 (COVID-19) mRNA BNT-162b2 vax 2 02/10/21 Recorded influenza, unspecified formulation 3 09/05/11 Martínez rded 1Result Comment: COVID-19 (Pfizer) mRNA,LNP-S,PF 30 mcg/0.3mL dose 2Result Comment: COVID-19 (Octonotco) mRNA,LNP-S,PF 30 mcg/0.3mL dose 3Result Comment: ASHUTOSH Medications Anoro Ellipta 62.5 mcg-25 mcg/inh inhalation powder 180 EA, 0 Refill(s), 0 Refill(s) Start Date: 10/09/23 Status: Ordered aspirin 81 mg oral delayed release tablet 81 mg = 1 tab, Oral, Daily, # 30 tab, 0 Refill(s) Start Date: 12/17/23 Status: Ordered Basaglar KwikPen 100 units/mL subcutaneous solution 50 units =, Subcutaneous, BID, # 15 mL, 0 Refill(s), other reason (Rx) Start Date: 01/08/24 Status: Ordered clopidogrel 75 mg oral tablet 75 mg = 1 tab, Oral, Daily, # 30 tab, 0 Refill(s) Start Date: 12/17/23 Status: Ordered Freestyle Kaylee 14 day sensor Freestyle Kaylee 14 day sensor, Freestyle Kaylee 14 day Sensor, appy new sensor every 14 days per package directions, Supply, See instructions, # 6 EA, 3 Refill(s), Pharmacy: [facility] Start Date: 01/09/23 Status: Ordered furosemide 40 mg oral tablet 40 mg = 1 tab, Oral, Daily, 0 Refill(s) Start Date: 12/17/23 Status: Ordered Gvoke HypoPen One Pack 0.5 mg/0.1 mL subcutaneous solution 0.5 mg = 0.1 mL, Subcutaneous, Once, # 0.1 mL, 2 Refill(s), Pharmacy: [facility], 179.5, cm, 12/12/23 14:44:00 EST, Height, 137, kg, 12/12/23 14:48:00 EST, Weight Dosing Start Date: 01/07/24 Status: Ordered HumaLOG KwikPen 100 units/mL injectable solution See Instructions, inject 3x a day 10 units for small meals 15 units for medium meals 20 units for large meals, # 15 mL, 3 Refill(s), Pharmacy: [facility], 179.5, cm, 12/12/23 14:44:00 EST, Height, 137, kg, 12/12/23 14:48:00 EST, Weight Dosing Start Date: 12/31/23 Status: Ordered ketoconazole 2% topical cream See Instructions, use as needed, 0 Refill(s) Start Date: 12/17/23 Status: Ordered losartan 50 mg oral tablet 50 mg = 1 tab, Oral, Daily, 0 Refill(s) Start Date: 12/17/23 Status: Ordered metFORMIN 500 mg oral tablet, extended release 500 mg = 1 tab, Oral, BID, # 60 tab, 0 Refill(s), other reason (Rx) Start Date: 01/08/24 Status: Ordered metoprolol succinate 100 mg =, Oral, Daily, 0 Refill(s) Start Date: 12/17/23 Status: Ordered Mounjaro 5 mg/0.5 mL subcutaneous solution 5 mg =, Subcutaneous, every week, rotate injection sites, # 4 EA, 0 Refill(s), Pharmacy: [facility], 179.5, cm, 12/12/23 14:44:00 EST, Height, 137, kg, 12/12/23 14:48:00 EST, Weight Dosing Start Date: 01/07/24 Status: Ordered nitroglycerin 0.4 mg sublingual tablet [...] disease Confirmed Active Coronary artery disease involving [place] heart Confirmed Active Dysuria 6 Confirmed Active [...] nicotine free I think he said since 2015. Congratulated him on that. Procedures Procedure Date Related Diagnosis Body Site Status TURP - Redo transurethral re section of prostate 1 03/12/18 Completed Colonoscopy 2 10/20/13 Completed PCI (percutaneous coronary intervention) of circumflex branch of left coronary artery Completed Procedure 3 Completed Procedure 4 Completed Surgery 5 Completed 1calculi 2[facility]. [facility] 3skin tag removal 4wart removal left hand finger as a teenager 5deviated septum 2007 Vital Signs Most recent to oldest [Reference Range]: 1 Peripheral Pulse Rate [60-100 bpm] 102 b pm *HI* (01/08/24 1:12 PM) Blood Pressure [90-140/60-90 mmHg] 118/7 8mmHg (01/08/24 1:12 PM) Mean Arterial Pressure, Cuff [65-140 mmH g] 91 mmHg (01/08/24 1:12 PM) Weight 138.1 kg (01/08/24 1:12 PM) Weight Measured (lbs) 304.458 lb (01/08/24 1:12 PM) Weight Dosing 138.100 kg (01/08/24 1:12 PM) Social History Social History Type Response Tobacco Former tobacco user Tobacco Use:. 1 Sex 1ECW states quit 2002 Hospital Discharge Instructions Follow Up Care 07/03/2023 10:13:58 With:Leo Locke DO Address: [address] [place] [address] When:3 Months Physician Outpatient Note * Leo Locke DO: PERFORM Event Display: Office Clinic Note Physician Authored Date: [id number] CHRISTIANO ANDREW Rossana :1960 Age:63 years Sex:Male Visit Date:01/08/2024 Primary Care Physician: Leo Locke DO Chief Complaint Patient here today for a 3 month follow up..Had heart attack on December 12, 2023 History of Present Illness Patient is a 63-year-old male who comes in today for follow-up hospitalization.?? He was??brought to the emergency department, diagnosed with a STEMI. ??Transferred??to [facility].?? Underwent cardiaccath,??stent placed.?? Seems to be doing okay, recovering.?? Has also been working with diabetes edu cation??regarding his insulin??and diet.?? Blood sugars improved. ??We reviewed his labs today. Cardiovascular:??Recent STEMI.?? Continues to recover.?? Has follow-up with cardiology.?? Taking his medications as prescribed. Endocrine:??Taking his insulin as prescribed. ??Working with diabetes education. Pulmonary:??Using his inhalers as prescribed.?? Feels that his breathing is at baseline. Review of Systems See HPI otherwise negative. Physical Exam Vitals & Measurements HR:??102??(Peripheral)?? BP:??118/78?? SpO2:??95%?? WT:??138.1??kg?? General: Alert and oriented, well nourished,?No??acute distress Lungs: Clear to auscultation and percussion,?Non-labored?? respiration Heart:?Normal? rate,?Regular??rhythm,?No??murmur,?No??gallop,?No??edema Abdomen: Soft, non-tender, non-distended,?Normal? bowel sounds,?No??masses Musculoskeletal:?Normal? range of motion and strength,?No??tenderness,?No??swelling Assessment/Plan 1.??Coronary artery disease involving [place] heart??I25.10 Seems to be recovering okay. ??Will continue his current medication regimen.?? Encouraged to eat more healthy.?? Recheck labs prior to next visit. Ordered: Comprehensive Metabolic Panel, Blood, Routine, *Est. 04/07/24 +/- 21 days, Once, Lab Collect, Type 2 diabetes mellitus with other circulatory complications Essential hypertension Coronary artery disease involving [place] heart, Order for future visit Lipid Panel, Blood, Routine, *Est. 04/07/24 +/- 21 days, Once, Lab Collect, Coronary artery diseaseinvolving [place] heart, Order for future visit ?? 2.??Essential hypertension??I10 Blood pressure is well-controlled. ??Will continue current medication regimen. Ordered: Comprehensive Metabolic Panel, Blood, Routine, *Est. 04/07/24 +/- 21 days, Once, Lab Collect, Type 2 diabetes mellitus with other circulatory complications Essential hypertension Coronary artery disease involving [place] heart, Order for future visit ?? 3.??Type 2 diabetes mellitus with other circulatory complications??E11.59 A1c improving, continue to work??with diabetes education. Ordered: Comprehensive Metabolic Panel, Blood, Routine, *Est. 04/07/24 +/- 21 days, Once, Lab Collect, Type 2 diabetes mellitus with other circulatory complications Essential hypertension Coronary artery disease involving [place] heart, Order for future visit Hgb A1c, Blood, Routine, *Est. 04/07/24 +/- 21 days, Once, Lab Collect, Type 2 diabetes mellitus with other circulatory complications, Order for future visit ?? 4.??COPD - Chronic obstructive pulmonary disease??J44.9 Breathing is at baseline. ??Will continue current medication regimen. ?? 5.??Morbid obesity due to excess calories??E66.01 Has been losing a little weight.?? Continue??lifestyle changes. ?? Orders: Basaglar KwikPen 100 units/mL subcutaneous solution, 50 units =, Subcutaneous, BID, # 15 mL, 0 Refill(s), other reason (Rx) metFORMIN 500 mg oral tablet, extended release, 500 mg = 1 tab, Oral, BID, # 60 tab, 0 Refill(s), other reason (Rx) Future Orders Comprehensive Metabolic Panel, Blood, Routine, *Est. 04/07/24 +/- 21 days, Once, Lab Collect, Type 2 diabetes mellitus with other circulatory complications Essential hypertension Coronary artery disease involving [place] heart, Order for future visit Hgb A1c, Blood, Routine, *Est. 04/07/24 +/- 21 days, Once, Lab Collect, Type 2 diabetes mellitus with other circulatory complications, Order for future visit Lipid Panel, Blood, Routine, *Est. 04/07/24 +/- 21 days, Once, Lab Collect, Coronary artery diseaseinvolving k[place] heart, Order for future visit Follow Up Instructions With When Contact Information Leo Locke DO Within 3 Months [address] [place] [address] Additional Instructions: Problem List/Past Medical History Ongoing Acute cystitis Allergic rhinitis Benign prostatic hyperplasia with outflow obstruction Bipolar affective disorder Bladder calculus BPH - benign prostatic hyperplasia BPH with obstruction/lower urinary tract symptoms Chronic diarrhea Cigarette nicotine dependence in remission COPD - Chronic obstructive pulmonary disease Coronary artery disease involving [place] heart Dysuria Erectile dysfunction Essential hypertension GERD [...] Daily Basaglar KwikPen 100 units/mL subcutaneous solution, 50 units, Subcutaneous, BID clopidogrel 75 mg oral tablet, 75 mg= 1 tab, Oral, Daily Freestyle Kaylee 14 day sensor, See instructions, 3 refills furosemide 40 mg oral tablet, 40 mg= 1 tab, Oral, Daily Gvoke HypoPen One Pack 0.5 mg/0.1 mL subcutaneous solution, 0.5 mg= 0.1 mL, Subcutaneous, Once, 2 refills HumaLOG KwikPen 100 units/mL injectable solution, See Instructions, 3 refills ketoconazole 2% topical cream, See Instructions losartan 50 mg oral tablet, 50 mg= 1 tab, Oral, Daily metFORMIN 500 mg oral tablet, extended release, 500 mg= 1 tab, Oral, BID metoprolol succinate, 100 mg, Oral, Daily Mounjaro 5 mg/0.5 mL subcutaneous solution, 5 mg, Subcutaneous, every week nitroglycerin 0.4 mg sublingual tablet, 0.4 mg= [...] Lives with Alone.- Comments: 1 dog .. [place].. Substance Use Current, Marijuana, Daily Tobacco Former tobacco user Tobacco Use:.- Comments: [facility] states quit 2002 Family History [...] Recorded Comments : ASHUTOSH Electronically Signed on 01/08/24 02:02 PM Leo Locke DO Patient Care team information Care Team Personnel Name: Leo Locke DO Position: Physician Member Role: Primary Care Physician Address: Address: [address] [place] [id number]
--- OUTSIDE RECORDS SUMMARY | 2024-06-18 14:55 | XMS_ITS | Continuity of Care Document ---
Author Organization [facility] Address [address] [place] [address] Care Team Providers Care Multimedia Programmer Name Role Phone Leo Locke DO Primary Care Physician Encounter [facility] NBR [id number] Date(s): 07/09/23 - 07/09/[address] [address] [place] Discharge Disposition: Home Allergies, Adverse [...] BID, # 10.6 g, 6 Refill(s), Pharmacy: [facility] Start Date: 07/03/23 Status: Ordered Freestyle Kaylee 14 day sensor Freestyle Kaylee 14 day sensor, Freestyle Kaylee 14 day Sensor, appy new sensor every 14 days per package directions, Supply, See instructions, # 6 EA, 3 Refill(s), Pharmacy: [facility] Start Date: 01/09/23 Status: Ordered High Potency [...] needed., # 60 g, 3 Refill(s), Pharmacy: [facility] Start Date: 05/28/23 Status: Ordered losartan 25 mg oral tablet 25 mg = 1 tab, Oral, Daily, # 90 tab, 3 Refill(s), Pharmacy: [facility] Start Date: 01/19/23 Stop Date: 01/14/24 Status: Ordered metFORMIN 500 mg oral tablet 500 mg = 1 tab, Oral, Daily, # 90 tab, 3 Refill(s), Pharmacy: [facility] Start Date: 01/19/23 Stop Date: 01/14/24 Status: Ordered Ozempic 8 mg/3 mL (2 mg dose) subcutaneous solution 2 mg =, Subcutaneous, every week, in the abdomen, thigh, or upper arm, # 3 mL, 3 Refill(s), Pharmacy: [facility] Start Date: 07/03/23 Status: Ordered Ventolin HFA 90 mcg/inh inhalation aerosol 180 mcg 2 puffs, Inhale, every 4 hr, PRN as needed for wheezing, # 18 g, 4 Refill(s), Pharmacy: [facility] Start Date: 07/03/23 Status: Ordered verapamil 180 mg/12 hours oral tablet, extended release 180 mg = 1 tab, Oral, every 12 hr, # 180 tab, 3 Refill(s), Pharmacy: [facility] Start Date: 01/19/23 Stop [...] Member Role: Primary Care Physician Address: Address: [address] [place] [id number]
--- OUTSIDE RECORDS SUMMARY | 2024-06-18 14:55 | XMS_ITS | Continuity of Care Document ---
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) - 04/10/24 COPD - Chronic obstructive pulmonary disease(Discharge Diagnosis) - 04/10/24 Coronary artery disease involving nisqually heart(Discharge Diagnosis) - 04/10/24 Essential hypertension(Discharge Diagnosis) - 04/10/24 Morbid obesity due to excess calories(Discharge Diagnosis) - 04/10/24 Type 2 diabetes mellitus with other circulatory complications(Final) - Chronic obstructive pulmonary disease, unspecified(Final) - Atherosclerotic heart disease of nisqually coronary artery without angina pectoris (Final) - Essential (primary) hypertension(Final) - Morbid (severe) obesity due to excess calories(Final) - Other assisted (current) drug therapy(Final) - 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 ??Will continue to work with endocrine to try and get better glycemic control. 2.??COPD - Chronic obstructive pulmonary disease??J44.9 ??Breathing appears to be at baseline.?? Continue current medication regimen. 3.??Coronary artery disease involving nisqually heart??I25.10 Will continue cardiac rehab. ??Will continue??medications as prescribed. 4.??Essential hypertension??I10 ??Blood pressure is reasonably well-controlled. ??Will continue current medication regimen. 5.??Morbid obesity due to excess calories??E66.01 ??Will continue to work on his caloric balance. Orders: ketoconazole 2% topical cream, 1 jorje, Topical, Daily, PRN rash, to affected area, # 60 g, 2 Refill(s), Pharmacy: [facility], 179.5, cm, 12/12/23 14:44:00 EST, Height, 151.59, kg, 04/10/24 15:28:00 EDT, Weight Dosing Future Appointments Immunizations Given and Recorded Vaccine [...] Daily, # 30 tab, 0 Refill(s), Pharmacy: [facility], 179.5, cm, 12/12/23 14:44:00 EST, Height, 138.1, kg, 01/08/24 13:21:00 EST, Weight Dosing Start Date: 04/04/24 Status: Ordered Basaglar KwikPen 100 units/mL subcutaneous solution 60 units =, Subcutaneous, BID, # 15 mL, 3 Refill(s), Pharmacy: [facility], 179.5, cm, 12/12/23 14:44:00 EST, Height, 138.1, kg, 01/08/24 13:21:00 EST, Weight Dosing Start Date: 01/25/24 Status: Ordered clopidogrel 75 mg oral tablet 75 mg = 1 tab, Oral, Daily, # 30 tab, 0 Refill(s), Pharmacy: [facility], 179.5, cm, 12/12/23 14:44:00 EST, Height, 138.1, kg, 01/08/24 13:21:00 EST, Weight Dosing Start Date: 04/04/24 Status: Ordered Freestyle Kaylee 14 day sensor Freestyle Kaylee 14 day sensor, Freestyle Kaylee 14 day Sensor, appy new sensor every 14 days per package directions, Supply, See instructions, # 6 EA, 3 Refill(s), Pharmacy: [facility] Start Date: 01/09/23 Status: Ordered furosemide 40 mg oral tablet 40 mg = 1 tab, Oral, Daily, # 30 tab, 0 Refill(s), Pharmacy: [facility], 179.5, cm, 12/12/23 14:44:00 EST, Height, 138.1, kg, 01/08/24 13:21:00 EST, Weight Dosing Start Date: 04/04/24 Status: Ordered Gvoke HypoPen One Pack 0.5 mg/0.1 mL subcutaneous solution 0.5 mg = 0.1 mL, Subcutaneous, Once, # 0.1 mL, 2 Refill(s), Pharmacy: [facility], 179.5, cm, 12/12/23 14:44:00 EST, Height, 137, kg, 12/12/23 14:48:00 EST, Weight Dosing Start Date: 01/07/24 Status: Ordered HumaLOG KwikPen 100 units/mL injectable solution See Instructions, inject 3x a day 10 units for small meals 15 units for medium meals 20 units for large meals, # 15 mL, 3 Refill(s), Pharmacy: [facility], 179.5, cm, 12/12/23 14:44:00 EST, [...] area, # 60 g, 2 Refill(s), Pharmacy: [facility], 179.5, cm, 12/12/23 14:44:00 EST, Height, 151.59, kg, 04/10/24 15:28:00 EDT, Weight Dosing Start Date: 04/10/24 Status: Ordered losartan 50 mg oral tablet 50 mg = 1 tab, Oral, Daily, # 30 tab, 0 Refill(s), Pharmacy: [facility], 179.5, cm, 12/12/23 14:44:00 EST, Height, 138.1, kg, 01/08/24 13:21:00 EST, Weight Dosing Start Date: 03/14/24 Status: Ordered metFORMIN 500 mg oral tablet, extended release 500 mg = 1 tab, Oral, BID, # 60 tab, 0 Refill(s), Pharmacy: [facility], 179.5, cm, 12/12/23 14:44:00 EST, Height, 138.1, kg, 01/08/24 13:21:00 EST, Weight Dosing Start Date: 04/04/24 Status: Ordered metoprolol succinate 100 mg oral capsule, extended release 100 mg =, Oral, Daily, # 30 cap, 0 Refill(s), Pharmacy: [facility], 179.5, cm, 12/12/2413:44:00 EST, Height, [...] bedtime, # 30 tab, 0 Refill(s), Pharmacy: [facility], 179.5, cm, 12/12/23 14:44:00 EST, Height, 138.1, kg, 01/08/24 13:21:00 EST, Weight Dosing Start Date: 04/04/24 Status: Ordered spironolactone 25 mg oral tablet 25 mg = 1 tab, Oral, Daily, # 30 tab, 0 Refill(s), Pharmacy: [facility], 179.5, cm, 12/12/23 14:44:00 EST, [...] disease Confirmed Active Coronary artery disease involving nisqually heart Confirmed Active Dysuria 6 Confirmed Active [...] Pulse Rate [60-100 bpm] 86 bp m (04/10/24 3:19 PM) Blood Pressure [90-140/60-90 mmHg] 114/8 0mmHg (04/10/24 3:19 PM) Mean Arterial Pressure, Cuff [65-140 mmH g] 91 mmHg (04/10/24 3:19 PM) Weight 151.59 kg (04/10/24 3:19 PM) Weight Measured (lbs) 334.198 lb (04/10/24 3:19 PM) Weight Dosing 151.590 kg (04/10/24 3:19 PM) Social History Social History Type Response Tobacco Former tobacco user Tobacco Use:. 1 Sex 1ECW states quit 2002 Hospital Discharge Instructions Follow Up Care 01/08/2024 13:51:05 With:Leo Locke DO Address: [address] [place] [phone] When:6 Months Physician Outpatient Note * Leo Locke DO: PERFORM Event Display: Office Clinic Note Physician Authored Date: [id number] ANDREW ALVARADO :1960 Age:63 years Sex:Male Visit Date:04/10/2024 Primary Care Physician: Leo Locke DO Chief Complaint Patient here for a follow up. NEVAEH 01/08/24 History of Present Illness Patient is a 63-year-old male who comes in today for follow-up. Endocrine: Taking his medication as prescribed. ??Working with Dr. Flor??at .?? Has been adjusting his insulin??to achieve better glycemic control.?? Most recent A1c is slightly improved, but stillover 8. Cardiovascular: Taking medication as prescribed. ??Continues with cardiac rehab. ??Seems to be improving his??stamina. Pulmonary: Taking his medication as prescribed. ??Feels that his breathing??is okay. Review of Systems See HPI otherwise negative. Physical Exam Vitals & Measurements HR:??86??(Peripheral)?? BP:??114/80?? SpO2:??94%?? WT:??151.59??kg?? General: Alert and oriented, well nourished,?No??acute distress Lungs: Clear to auscultation and percussion,?Non-labored?? respiration Heart:?Normal? rate,?Regular??rhythm,?No??murmur,?No??gallop,?No??edema Abdomen: Soft, non-tender, non-distended,?Normal? bowel sounds,?No??masses Musculoskeletal:?Normal? range of motion and strength,?No??tenderness,?No??swelling ?? Assessment/Plan 1.??Type 2 diabetes mellitus with other circulatory complications??E11.59 ??A1c is improving but very gradually. ??Will continue to work with endocrine to try and get betterglycemic control. 2.??COPD - Chronic obstructive pulmonary disease??J44.9 ??Breathing appears to be at baseline.?? Continue current medication regimen. 3.??Coronary artery disease involving nisqually heart??I25.10 Will continue cardiac rehab. ??Will continue??medications as prescribed. 4.??Essential hypertension??I10 ??Blood pressure is reasonably well-controlled. ??Will continue current medication regimen. 5.??Morbid obesity due to excess calories??E66.01 ??Will continue to work on his caloric balance. Orders: ketoconazole 2% topical cream, 1 jorje, Topical, Daily, PRN rash, to affected area, # 60 g, 2 Refill(s), Pharmacy: [facility], 179.5, cm, 12/12/23 14:44:00 EST, Height, 151.59, kg, 04/10/2415:28:00 EDT, Weight Dosing Follow Up Instructions With When Contact Information Leo Locke, DO Within 6 Months [address] [place] [address] Additional Instructions: Problem List/Past Medical History Ongoing Acute cystitis Allergic rhinitis Benign prostatic hyperplasia with outflow obstruction Bipolar affective disorder Bladder calculus BPH - benign prostatic hyperplasia BPH with obstruction/lower urinary tract symptoms Chronic diarrhea Cigarette nicotine dependence in remission COPD - Chronic obstructive pulmonary disease Coronary artery disease involving nisqually heart Dysuria Erectile dysfunction Essential hypertension GERD [...] 100 units/mL subcutaneous solution, 60 units, Subcutaneous, BID, 3 refills clopidogrel 75 mg oral tablet, 75 mg= [...] Lives with Alone.- Comments: 1 dog .. [place] Substance Use Current, Marijuana, Daily Tobacco Former tobacco user Tobacco Use:.- Comments: [facility] states quit 2002 Family History Alcoholism: [...] Recorded Comments : ASHUTOSH Electronically Signed on 04/10/2024 15:55 EDT Leo Locke DO Patient Care team information Care Team Personnel Name: Leo Locke DO Position: Physician Member Role: Primary Care Physician Address: Address: [address] [place] [phone]
--- OUTSIDE RECORDS SUMMARY | 2024-06-18 14:55 | XMS_ITS | Continuity of Care Document ---
Author Organization [facility] Address [address] [place] [phone] Care Team Providers Care Criminal Profiler Name Role Phone Leo Locke DO Primary Care Physician Encounter [facility] NBR [id number] Date(s): 04/11/23 - 04/11/[address] [phone] [place] Discharge Disposition: Home or [...] instructions, # 6 EA, 3 Refill(s), Pharmacy: [facility] Start Date: 01/09/23 Status: Ordered High Potency [...] thigh, or upper arm, # 3 mL, 1 Refill(s), Pharmacy: [facility] Start Date: 04/12/23 Status: Ordered Ventolin HFA 90 mcg/inh inhalation aerosol 180 mcg 2 puffs, Inhale, every 4 hr, PRN as needed for wheezing, # 18 g, 4 Refill(s), Pharmacy: [facility] Start Date: 04/11/23 Status: Ordered verapamil 180 mg/12 hours oral tablet, extended release 180 mg = 1 tab, Oral, every 12 hr, # 180 tab, 3 Refill(s), Pharmacy: [facility] [...] septum 2007 Results Laboratory List Name Date Comprehensive Metabolic Panel (CMP) 04/11 Hgb A1c (A1C) 04/11/23 Most recent to oldest [Reference Range]: 1 BUN [8-26 mg/dL] 19 mg/dL (04/11/23 1:23 PM) Glucose Level [74-106 mg/dL] 272 mg/dL *HI* (04/11/23: PM) Potassium Level [3.5-5.1 mmol/L] 4.0 mmo l/L (04/11/23: PM) AST [15-41 IntlUnit/L] 23 IntlUnit/L (04/11/23: PM) ALT [17-63 IntlUnit/L] 32 IntlUnit/L (04/11/23: PM) Osmolality [275-295 mOsm/kg] 276 mOsm/kg (04/11/23: PM) Sodium Level [134-143 mmol/L] 132 mmol/L *LOW* (04/11/23 PM) Calcium Level [8.9-10.3 mg/dL] 9.6 mg/dL (04/11/23 PM) Albumin Level [3.5-5.0 g/dL] 4.1 g/dL (04/11/23 PM) Protein Total [6.5-8.1 g/dL] 7.5 g/dL (04/11/23: PM) Bilirubin Total [0.2-1.2 mg/dL] 1.4 mg/d L *HI* (04/11/23 PM) Alk Phos [38-130 IntlUnit/L] 56 IntlUnit /L (04/11/23: PM) CO2 [22-32 mmol/L] 25 mmol/L (04/11/23: PM) eAvg Glucose 217 *NA* (04/11/23 PM) Chloride Level [98-111 mmol/L] 97 mmol/L *LOW* (04/11/23: PM) A/G Ratio 1.2 *NA* (04/11/23: PM) BUN/Creat Ratio [8.0-20.0] 26.4 *HI* (04/11/23: PM) Globulin 3.4 *NA* (04/11/23 PM) Hgb A1c Percent [4.0-6.0 %] 9.2 % *HI* (04/11/23 PM) .Hb 16.8 g/dL *NA* (5/31/23 1:23 PM) .Hgb A1c 1.3 g/dL *NA* (04/11/23 1:23 PM) Creatinine Level [0.61-1.24 mg/dL] 0.72 mg/dL (04/11/23 1:23 PM) Anion Gap [3.0-12.0] 10.0 (04/11/23 1:23 PM) eGFR CKD-EPI [>=60 mL/min/1.73 m2] 105 m L/min/1.73 m2 (04/11/23 1:23 PM) Social History Social History Type Response Tobacco Former tobacco user Tobacco Use:. 1 Sex 1ECW states quit 2002 Patient Care team information Care Team Personnel Name: Leo Locke DO Position: Physician Member Role: Primary Care Physician Address: Address: [address] [place] [phone]
--- OUTSIDE RECORDS SUMMARY | 2024-06-18 14:55 | XMS_ITS | Clinical Summary ---
Author Organization [facility] Address [facility] [place] [address] Care Team Providers Care Keymodule Assembly Machine Tender Name Role Phone Leo Alegre DO Primary Care Provider [phone] Allergies Active Allergy Reactions Criticality Noted Date Comments Amlodipine Besylate Other (See Comments) 2021 Atorvastatin Other (See Comments) 12/14/2021 Lisinopril Other (See Comments) 06/11/2018 CAUSES COUGH Medications Medication Sig Dispensed Refills Start Date End Date Status ketoconazole (NIZORAL) 2 % Cream as needed. 08/15/2017 Active nitroGLYcerin (Nitrostat) 0.[address] 1 tablet under the tongue every 5 minutes as needed for Chest pain for up to 20 doses. 20 tablet 12/16/2023 Active insulin needles, disposable, 32 gauge x 5/32 NeedleIndications: diabetes mellitus Inject 1 each subcutaneously nightly. Indications: diabetes 100 each 11 12/16/2023 Active umeclidinium-vilan teroL (Anoro Ellipta) 62.5-25 mcg/actuation Disk with DeviceIndications: Chronic obstructive pulmonary disease, unspecified COPD type,Cigarette nicotine dependence in remission Inhale 1 puff into the lungs daily. 3 each 3 01/09/2024 Active Gvoke HypoPen 2-Pack 0.5 mg/0.1 mL Auto-Injector 3 times daily. 01/08/2024 Acti ve insulin lispro (HumaLOG) 100 unit/mL Insulin Pen Inject 60 Units subcutaneously daily. 60 units twice a day 12/31/2023 Active Mounjaro 5 mg/0.5 mL Pen Injector Next dose will be 7.5 mg 01/07/2024 Active albuteroL (Proventil, Ventolin) (2.5 mg/3 mL) (0.083 %) Solution for Nebulization Take 3 mLs by nebulization every 4 hours as needed for Wheezing. 180 mL 5 02/12/2024 Active Insulin Basaglar KwikPen U-100 100 unit/mL (3 mL) pen Inject 60 Units subcutaneously daily. 01/08/2024 Active insulin regular human U-500 (HumuLIN R U-500, Conc, Kwikpen) 500 unit/mL (3 mL) Insulin PenIndications:Typ e 2 diabetes mellitus with hyperglycemia, with long-term current use of insulin Inject 80-100 Units subcutaneously every evening. 15 mL 3 02/26/2024 Active Mounjaro 10 mg/0.5 mL Pen InjectorIndication s:type 2 diabetes mellitus Inject 10 mg subcutaneously once a week. Indications: type 2 diabetes mellitus 6 mL 3 02/26/2024 Active empagliflozin (Jardiance) 25 mg tabletIndications: Type 2 diabetes mellitus with hyperglycemia, with long-term current use of insulin Take 1 tablet by mouth daily. 90 tablet 3 02/26/2024 Active metFORMIN (Fortamet) 500 mg ER 24 hr tablet Take 500 mg by mouth daily (with breakfast). Active metoprolol succinate XL (Toprol-XL) 100 mg ER 24 hr tablet Take 100 mg by mouth daily. Active clopidogreL (Plavix) 75 mg tablet Take 75 mg by mouth daily. Pt unsure of dose Active furosemide (Lasix) 20 mg tablet Take 20 mg by mouth 2 times daily. PT unsure of dose Active aspirin EC 81 mg EC (DR) tablet Take 81 mg by mouth daily. Active rosuvastatin (Crestor) 40 mg tablet Take 40 mg by mouth daily. Active losartan (Cozaar) 50 mg tablet Take 1 tablet by mouth daily. 90 tablet 3 03/21/2024 Active Active Problems Problem Noted Date Diagnosed Date Primary hypertension 03/21/2024 Assessment & Plan (03/21/2024 3:35 PM EDT): Blood pressure is well-controlled on the current regimen. It includes a beta- jeimy and an ARB, appropriate to his LV dysfunction. Based on his blood pressures I do not think that there is room for upward titration. Hyperlipidemia 03/21/2024 Assessment & Plan (03/21/2024 3:35 PM EDT): Lipids are appropriately treated with a high-dose statin. I am making no changes. STEMI (ST elevation myocardial infarction) 12/12 Overview (03/21/2024): 12/12/23 DYANA to Lcx, mod disease elsewhere, EF=41% Assessment & Plan (03/21/2024 3:35 PM EDT): He is now [address] his [address] elevation OR. There was originally some concern that he might have to have secondary lesions intervened upon, but has been completely free of angina since then and I think there is not really an indication for this. Medical therapy of his coronary disease is appropriate with dual antiplatelet therapy with aspirin and clopidogrel, high-dose statin and appropriate blood pressure lowering medications. His ischemic cardiomyopathy is appropriately treated with all 4 major classes of medications. He is euvolemic on exam today and not exhibiting any CHF symptoms. I am making no changes to his regimen. I will see him back in 6 months. He knows to contact us with any changes in status. Encounters Date Type Department Care Team Description 06/10/2024 Telephone Pulmonology at [place] [phone] Lizbet Gray 03/25/2024 [place] [phone] Lakeshia Blanchard RN 03/21/2024 3:40 PM EDT Office Visit Cardiology at [address] [phone] elevation myocardial infarction involving left circumflex coronary artery; Primary hypertension; Hyperlipidemia, unspecified hyperlipidemia type 03/21/2024 Travel from Last 3 Months Family History Medical History Relation Comments Respiratory Disease Neg Hx Social History Tobacco Use Types Packs/Day Years Used Date Smoking Tobacco: Former Cigarettes 2.8 30 1 986 - 2016 Smokeless Tobacco: Never Comments:Patient quit smokin g initially in 2002 then relapsed for a brief period of time and quit again in 2016. Alcohol Use Standard Drinks/Week Comments Not Currently 0 (1 standard drink = 0.6 oz pur e alcohol) [facility] Utilities Answer Date Recorded In the past [...] place to sleep or slept in a assisted (including now)? No 12/13/2023 DH IPV Inpatient Questions Answer Date Recorded Does [...] on file Sexual Orientation Not on file Last Filed Vital Signs Vital Sign Reading Time Taken Comments Blood Pressure 116/76 03/21/2024 3:17 PM EDT Pulse 81 03/21/2024 3:17 PM EDT Temperature 36.2 ??C (97.1 ??F) 02/26/2024 1:10 PM ED T Respiratory Rate 20 02/26/2024 1:10 PM EDT Oxygen Saturation 95% 03/21/2024 3:17 PM EDT Inhaled Oxygen Concentration - - Weight 150 kg (330 lb 12.8 oz) 03/21/2024 3:17 P M EDT Height 180.3 cm (5' 11) 03/21/2024 3:17 PM EDT Body Mass Index 46.14 03/21/2024 3:17 PM EDT Plan of Treatment Upcoming Encounters Date Type Department Care Team (Late st Contact Info) Description 07/02/2024 3:00 PM EDT Office [place] [phone] Leo Flor MD [facility] [place] [address] 08/12/2024 3:40 PM EDT [place] [phone] Siva Harrison MD [facility] [place] [address] 09/18/2024 1:00 PM EST Office Visit Cardiology at [address] [phone] Jj Davis MD [facility] [place] [address] Health Maintenance Due Date Last Done Comments CT Colonography 1962 Colonoscopy 1962 Colorectal Cancer Screening 1960 FIT DNA 1962 FIT 1960 Sigmoidoscopy (10 year) with FIT yearly 1962 Sigmoidoscopy 1960 Pneumococcal Vaccine: At-Ris k 5-64yrs (1 of 2 - PCV) 1968 HIV screen 1980 Hepatitis C Screening 1980 Tdap adult 1981 Tetanus vaccine 1981 Zoster vaccine (1 of 2) 2012 Advance Directive 2017 Covid-19 Vaccine (4 - 2022-2 4 season) 2023 11/03/2021, 04/13/2021, 02/10/2021 Influenza (Flu) vaccine (1 o f 1 - Influenza standard series) 07/13/2024 Diabetes Screening (HgbA1C o r Glucose) 12/16/2026 12/16/2023, 12/15/2023, 12/15/2023, Additional history exists Procedures Procedure Name Priority Date/Time Associated Diagnosis Comments LAB SCAN 04/15/2024 12:00 AM EDT BASIC METABOLIC PANEL Routine 12/16/2023 4:01 AM EST from Last 3 Months or Most Recently Relevant to Health Maintenance Results * Scan Doc: Lab (04/15/2024 12:00 AM EDT) Narrative 04/15/2024 12:00 AM EDT Ordered by an unspecified provider. Scanning Provider MEDIA MGR SCAN EXT O RDR/RSLT * (ABNORMAL) Basic Metabolic Panel (non-fasting) (12/16/2023 4:01 AM EST) Glucose 110 65 - 199 mg/dL [facility] Comment:Diabetes: >=200 mg/d L plus symptoms Blood Urea Nitrogen 26(H) 10 - 20 mg/dL [facility] Creatinine 0.85 0.80 - 1.50 mg/dL [facility] Sodium 133(L) 135 - 145 mmol/L [facility] Potassium 3.4(L) 3.5 - 5.0 mmol/L [facility] Comment: Please note: ??Patients with WBC >100,000 may have falsely elevated Potassium levels. ??For accurate Potassium quantification in these patients send serum separator tube (gold top) for subsequent determinations. ??Contact the Clinical Chemistry Laboratory if there are any questions. Chloride 97(L) 98 - 107 mmol/L [facility] Carbon Dioxide 25 22 - 31 mmol/L [facility] Anion Gap 11 5 - 15 mmol/L [facility] Calcium 8.9 8.5 - 10.5 mg/dL [facility] Est Glomerular Filtration Rate 99 >=60 mL/min/1. 73 m?? [facility] Comment: This patient's estimated GFR was calculated using the 2020 CKD-EPI equation. The estimated GFR can vary from the measured GFR by up to 30% in the absence of rapidly changing kidney function. Assessment of the estimated GFR is not appropriate when creatinine concentrations are rapidly changing. For clinical situations in which a more precise estimate of GFR is necessary, consider alternative methods of GFR estimation such as a 24-hour urine creatinine clearance. Assignment of CKD stage 1-5 for patients with an eGFR near the transition point between stages may be based on clinical assessment of muscle mass and symptoms in addition to eGFR. Blood 12/16/2023 4:01 AM EST 12/16/2023 4:12 AM EST Narrative Resulting Agency Comment Spec In Lab Abram Wei [place] [address] from Last 3 Months or Most Recently Relevant to Health Maintenance Advance Directives * Attempt Cardiopulmonary Resuscitation - Inpatient (Latest Code Status on File) Date Activated Date Inactivated Comments 12/12/2023 8:30 PM 12/16/2023 6:54 PM Question Answer Comments Code Status decision made by: Patient Care Teams Keymodule Assembly Machine Tender Relationship Specialty Start Date End Date Leo Alegre DO [address] [place] [address] PCP - General Family Medicine 03/03/21
--- OUTSIDE RECORDS SUMMARY | 2024-06-18 14:55 | XMS_ITS | Encounter Summary ---
Author Organization [facility] Address [facility] [place] [address] Care Team Providers Care Manager Athletics Name Role Phone Leo Alegre DO Primary Care Provider [phone]- [phone] Encounter Details Date Type Department Care Team (Late st Contact Info) Description 01/15/2024 Telephone [place] [phone] Carmelita Red RN Social History Tobacco Use Types Packs/Day Years Used Date Smoking Tobacco: Former Cigarettes 2.8 30 1 973 - 2002 Smokeless Tobacco: Never Alcohol Use Standard Drinks/Week Comments Not Currently 0 (1 standard drink = 0.6 oz pur e alcohol) [facility] Utilities Answer Date Recorded In the [...] place to sleep or slept in a senior living (including now)? No 12/13/2023 [facility] Inpatient Questions Answer Date Recorded Does Anyone [...] on file documented as of this encounter Miscellaneous Notes * Telephone Encounter - Carmelita Red RN - 01/15/2024 2:30 PM EST Call to [facility] and cancelled rx for Anoro. Call to [place] [facility] and had them process rx through insurance again. Per agent, went through with copay $11. Call to patient and advised. * Telephone Encounter - Carmelita Red RN - 01/15/2024 2:16 PM EST Copied from CRM #[id number]. Topic: Specialty Dept CRMs - Medication Issues >> Jan 15, 2024 1:24 PM Alejandra Snyder wrote: Medication Issues Specialist Siva Harrison Relationship (if other than patient-full name): patient Reason for call: Medication Issue (if symptom based used Triage Subtopic) Message/information for the nurse: Patient states he cannot peanut picker his prescription at [facility] because it was mistakenly sent to [facility] and they believe he already picked it up. Please call to advise. Name of Medication: umeclidinium-vilanteroL (Anoro Ellipta) 62.5-25 mcg/actuation Disk with Device [[id number]] Issue with the medication: documented in this encounter Plan of Treatment Upcoming Encounters Date Type Department Care Team (Late st Contact Info) Description 07/02/2024 3:00 PM EDT Office Visit Endocrinology at [place] [address] Leo Flor MD [facility] [place] [address] 08/12/2024 3:40 PM EDT Office [place] [address] Siva Harrison MD [facility] [place] [address] 09/18/2024 1:00 PM EST Office [place] [address] Jj Davis MD [facility] [place] [address] documented as of this encounter Visit Diagnoses Not on filedocumented in this encounter Care Teams Manager Athletics Relationship Specialty Start Date End Date Leo Alegre DO [address] [place] [address] PCP - General Family Medicine 03/03/21 documented as of this encounter
--- OUTSIDE RECORDS SUMMARY | 2024-06-18 14:55 | XMS_ITS | Continuity of Care Document ---
Author Organization [facility] Address [address] [place] [phone] Care Team Providers Care Flat Breakdown Processor Name Role Phone Leo Locke DO Primary Care Physician Encounter LTTL_[place] FIN NBR [id number] Date(s): 01/04/24 - 01/04/[address] [address]- [place] Discharge Disposition: Home or [...] instructions, # 6 EA, 3 Refill(s), Pharmacy: [facility] Start Date: 01/09/23 Status: Ordered furosemide 40 mg oral tablet 40 mg = 1 tab, Oral, Daily, 0 Refill(s) Start Date: 12/17/23 Status: Ordered HumaLOG KwikPen 100 units/mL injectable solution See Instructions, inject 3x a day 10 units for small meals 15 units for medium meals 20 units for large meals, # 15 mL, 3 Refill(s), Pharmacy: [facility], 179.5, cm, 12/12/23 14:44:00 EST, [...] Daily, # 90 tab, 3 Refill(s), Pharmacy: [facility] Start Date: 01/19/23 Stop Date: [...] arm, # 3 mL, 3 Refill(s), Pharmacy: [facility] Start Date: 07/03/23 Status: Ordered rosuvastatin [...] Laboratory List Name Date Comprehensive Metabolic Panel 01/04/24 Hgb A1c 01/04/24 Vitamin D 25 Hydroxy Level 01/04/24 Most recent to oldest [Reference Range]: 1 BUN [7-25 mg/dL] 25 mg/dL (01/04/24 8:52 AM) Glucose Level [70-109 mg/dL] 158 mg/dL *HI* (01/04/24 8:52 AM) Potassium Level [3.5-5.1 mmol/L] 4.8 mmo l/L (01/04/24 8:52 AM) AST [13-39 IntlUnit/L] 13 IntlUnit/L (01/04/24 8:52 AM) ALT [7-52 IntlUnit/L] 24 IntlUnit/L (01/04/24 8:52 AM) Osmolality [275-295 mOsm/kg] 282 mOsm/kg (01/04/24 8:52 AM) Sodium Level [136-145 mmol/L] 137 mmol/L (01/04/24 8:52 AM) Vitamin D 25 [place] [30.0-100.0 ng/mL] 14.0 ng/mL 1 *LOW* (01/04/24 8:52 AM) Calcium Level [8.6-10.3 mg/dL] 9.2 mg/dL (01/04/24 8:52 AM) Albumin Level [3.5-5.7 g/dL] 3.7 g/dL (01/04/24 8:52 AM) Protein Total [6.4-8.9 g/dL] 6.3 g/dL *LOW* (01/04/24 8:52 AM) Bilirubin Total [0.3-1.0 mg/dL] 0.5 mg/d L (01/04/24 8:52 AM) Alk Phos [34-104 IntlUnit/L] 66 IntlUnit /L (01/04/24 8:52 AM) CO2 [21-31 mmol/L] 28 mmol/L (01/04/24 8:52 AM) eAvg Glucose [70-105 mg/dL] 209 mg/dL *HI* (01/04/24 8:52 AM) Chloride Level [98-107 mmol/L] 102 mmol/ L (01/04/24 8:52 AM) A/G Ratio [1.0-2.5 g/dL] 1.4 g/dL (01/04/24 8:52 AM) BUN/Creat Ratio [8.0-20.0] 35.7 *HI* (01/04/24 8:52 AM) Globulin [2.3-3.5 g/dL] 2.6 g/dL (01/04/24 8:52 AM) Hgb A1c Percent [4.0-6.0 %] 8.9 % *HI* (01/04/24 8:52 AM) Creatinine Level [0.70-1.30 mg/dL] 0.70 mg/dL (01/04/24 8:52 AM) Anion Gap [3.0-12.0] 7.0 (01/04/24 8:52 AM) eGFR CKD-EPI [>=60 mL/min/1.73 m2] 105 m L/min/1.73 m2 (01/04/24 8:52 AM) 1Interpretive Data: VIT D STATUS: RANGE: Deficient <20 ng/mL Insufficiency 20-30 ng/mL Sufficiency 30-100 ng/mL Toxicity >100 ng/mL Patients that have undergone flourescein dye angiography without allowing enough time for clearanceof the flourescein dye may have falsely elevated Vitamin D levels. Social History Social History Type Response Tobacco Former tobacco user Tobacco Use:. 1 Sex 1ECW states quit 2002 Patient Care team information Care Team Personnel Name: Leo Locke DO Position: Physician Member Role: Primary Care Physician Address: Address: [address] [place] [phone]
--- OUTSIDE RECORDS SUMMARY | 2024-06-18 14:55 | XMS_ITS | Encounter Summary ---
Author Organization [facility] [place] [address] Care Team Providers Care Wound/Ostomy Nurse Name Role Phone Leo Alegre DO Primary Care Provider +1- [phone] Encounter Details Date Type Department Care Team (Late st Contact Info) Description 06/10/2024 Telephone Pulmonology at [facility] [place] [phone] Lizbet Gray Social History Tobacco Use Types Packs/Day Years Used Date Smoking Tobacco: Former Cigarettes 2.8 30 1 986 - 2016 Smokeless Tobacco: Never Comments:Patient quit smokin g initially in 2002 then relapsed for a brief period of time and quit again in 2016. Alcohol Use Standard Drinks/Week Comments Not Currently 0 (1 standard drink = 0.6 oz pur e alcohol) [facility] Utilities Answer Date Recorded In the past 12 months has e [employer], gas, oil, or water [employer] threatened to shut off services in your [...] 3:00 PM EDT Office Visit Endocrinology at [address] Leo Flor MD [facility] [place] [address] 08/12/2024 3:40 PM EDT Office [place] [address] Siva Harrison MD [facility] [place] [address] 09/18/2024 1:00 PM EST Office Visit Cardiology at [address] Jj Davis MD [facility] [place] [address] documented as of this encounter Visit Diagnoses Not on filedocumented in this encounter Care Teams Wound/Ostomy Nurse Relationship Specialty Start Date End Date Leo Alegre DO [address] [place] [address] PCP - General Family Medicine 03/03/21 documented as of this encounter
--- OUTSIDE RECORDS SUMMARY | 2024-06-18 14:55 | XMS_ITS | Continuity of Care Document ---
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, 179.5, cm, 12/12/23 14:44:00 EST, Height, 138.1, kg, 01/08/24 13:21:00 EST, Weight Dosing Start Date: 04/04/24 Status: Ordered Basaglar KwikPen 100 units/mL subcutaneous solution 60 units =, Subcutaneous, BID, # 15 mL, 3 Refill(s), Pharmacy: [facility], 179.5, cm, 12/12/23 14:44:00 EST, Height, 138.1, kg, 01/08/24 13:21:00 EST, Weight Dosing Start Date: 01/25/24 Status: Ordered clopidogrel 75 mg oral tablet 75 mg = 1 tab, Oral, Daily, # 30 tab, 0 Refill(s), Pharmacy: [facility], 179.5, cm, 12/12/23 14:44:00 EST, Height, 138.1, kg, 01/08/24 13:21:00 EST, Weight Dosing Start Date: 04/04/24 Status: Ordered Freestyle Kaylee 14 day sensor Freestyle Kaylee 14 day sensor, Freestyle Kaylee 14 day Sensor, appy new sensor every 14 days per package directions, Supply, See instructions, # 6 EA, 3 Refill(s), Pharmacy: [facility] Start Date: 01/09/23 Status: Ordered furosemide 40 mg oral tablet 40 mg = 1 tab, Oral, Daily, # 30 tab, 0 Refill(s), Pharmacy: [facility], 179.5, cm, 12/12/23 14:44:00 EST, Height, 138.1, kg, 01/08/24 13:21:00 EST, Weight Dosing Start Date: 04/04/24 Status: Ordered Gvoke HypoPen One Pack 0.5 mg/0.1 mL subcutaneous solution 0.5 mg = 0.1 mL, Subcutaneous, Once, # 0.1 mL, 2 Refill(s), Pharmacy: [facility], 179.5, cm, 12/12/23 14:44:00 EST, Height, 137, kg, 12/12/23 14:48:00 EST, Weight Dosing Start Date: 01/07/24 Status: Ordered HumaLOG KwikPen 100 units/mL injectable solution See Instructions, inject 3x a day 10 units for small meals 15 units for medium meals 20 units for large meals, # 15 mL, 3 Refill(s), Pharmacy: [facility], 179.5, cm, 12/12/23 14:44:00 EST, [...] Daily, # 30 tab, 0 Refill(s), Pharmacy: [facility], 179.5, cm, 12/12/23 14:44:00 EST, Height, 138.1, kg, 01/08/24 13:21:00 EST, Weight Dosing Start Date: 03/14/24 Status: Ordered metFORMIN 500 mg oral tablet, extended release 500 mg = 1 tab, Oral, BID, # 60 tab, 0 Refill(s), Pharmacy: [facility], 179.5, cm, 12/12/23 14:44:00 EST, Height, 138.1, kg, 01/08/24 13:21:00 EST, Weight Dosing Start Date: 04/04/24 Status: Ordered metoprolol succinate 100 mg oral capsule, extended release 100 mg =, Oral, Daily, # 30 cap, 0 Refill(s), Pharmacy: [facility], 179.5, cm, 12/12/2413:44:00 EST, Height, 138.1, kg, 01/08/24 13:21:00 EST, Weight Dosing Start Date: 04/04/24 Status: Ordered Mounjaro 7.5 mg/0.5 mL subcutaneous solution 7.5 mg =, Subcutaneous, every week, rotate injection sites, # 4 EA, 0 Refill(s), Pharmacy: [facility], 179.5, cm, 12/12/23 14:44:00 EST, Height, 138.1, kg, 01/08/24 13:21:00 EST, Weight Dosing Start Date: 02/04/24 Status: Ordered nitroglycerin 0.4 mg sublingual tablet 0.4 mg = 1 tab, Sublingual, every 5 min, PRN as needed for chest pain, 0 Refill(s) Start Date: 12/17/23 Status: Ordered rosuvastatin 40 mg oral tablet 40 mg = 1 tab, Oral, every night at bedtime, # 30 tab, 0 Refill(s), Pharmacy: [facility], 179.5, cm, 12/12/23 14:44:00 EST, Height, 138.1, kg, 01/08/24 13:21:00 EST, Weight Dosing Start Date: 04/04/24 Status: Ordered spironolactone 25 mg oral tablet 25 mg = 1 tab, Oral, Daily, # 30 tab, 0 Refill(s), Pharmacy: [facility], 179.5, cm, 12/12/23 14:44:00 EST, [...] disease Confirmed Active Coronary artery disease involving [place] heart Confirmed Active Dysuria 6 Confirmed Active [...] List Name Date Comprehensive Metabolic Panel (CMP) 04/09 Hgb A1c (Hemoglobin A1C) 04/09/24 Lipid Panel 04/09/24 Most recent to oldest [Reference Range]: 1 BUN [7-25 mg/dL] 32 mg/dL *HI* (04/09/24 12:28 PM) Cholesterol Total [<=200 mg/dL] 88 mg/dL (04/09/24 12:28 PM) LDL 4.0 mg/dL 1 *NA* (04/09/24 12:28 PM) Glucose Level [70-109 mg/dL] 232 mg/dL *HI* (04/09/24 12:28 PM) Potassium Level [3.5-5.1 mmol/L] 4.9 mmo l/L (04/09/24 12:28 PM) HDL [23-92 mg/dL] 26 mg/dL (04/09/24 12:28 PM) AST [13-39 IntlUnit/L] 18 IntlUnit/L (04/09/24 12:28 PM) ALT [7-52 IntlUnit/L] 23 IntlUnit/L (04/09/24 12:28 PM) Osmolality [275-295 mOsm/kg] 284 mOsm/kg (04/09/24 12:28 PM) Sodium Level [136-145 mmol/L] 135 mmol/L *LOW* (04/09/24 12:28 PM) Chol/HDL 3.4 2 *NA* (04/09/24 12:28 PM) Triglycerides [<=150 mg/dL] 289 mg/dL *HI* (04/09/24 12:28 PM) Calcium Level [8.6-10.3 mg/dL] 9.5 mg/dL (04/09/24 12:28 PM) Albumin Level [3.5-5.7 g/dL] 4.3 g/dL (04/09/24 12: PM) Protein Total [6.4-8.9 g/dL] 6.8 g/dL (04/09/24 12: PM) Bilirubin Total [0.3-1.0 mg/dL] 1.1 mg/d L *HI* (04/09/24 12: PM) Alk Phos [34-104 IntlUnit/L] 48 IntlUnit /L (04/09/24 12: PM) CO2 [21-31 mmol/L] 29 mmol/L (04/09/24 12: PM) Chloride Level [98-107 mmol/L] 99 mmol/L (04/09/24 12: PM) A/G Ratio [1.0-2.5 g/dL] 1.7 g/dL (04/09/24 12: PM) BUN/Creat Ratio [8.0-20.0] 40.0 *HI* (04/09/24 12: PM) Globulin [2.3-3.5 g/dL] 2.5 g/dL (04/09/24 12: PM) Hgb A1c Percent [4.0-6.0 %] 8.7 % *HI* (04/09/24 12: PM) Creatinine Level [0.70-1.30 mg/dL] 0.80 mg/dL (04/09/24 12: PM) Anion Gap [3.0-12.0] 7.0 (04/09/24 12: PM) eGFR CKD-EPI [>=60 mL/min/1.73 m2] 101 m L/min/1.73 m2 (04/09/24 12: PM) 1Interpretive Data: Optimal: Less than 100 mg/dL Above Optimal: 100 - 129 mg/dL Borderline High: 130 - 159 mg/dL High: 160 - 189 mg/dL Very High: > or = 190 mg/dL 2Interpretive Data: RISK MALE FEMALE 1/2 average 3.4 3.3 Average 5.0 4.4 2x Average 9.6 7.1 3x Average 23.4 11.0 Social History Social History Type Response Tobacco Former tobacco user Tobacco Use:. 1 Sex 1ECW states quit 2002 Patient Care team information Care Team Personnel Name: Leo Locke DO Position: Physician Member Role: Primary Care Physician Address: Address: [address] [place] [phone]
--- OUTSIDE RECORDS SUMMARY | 2024-06-18 14:55 | XMS_ITS | Encounter Summary ---
Author Organization [facility] Address [facility] [place] [address] Care Team Providers Care Elevator Constructor Supervisor Name Role Phone Leo Alegre DO Primary Care Provider [phone]- [phone] Reason for Visit * Consultation (Routine) - Closed Specialty Diagnoses / Procedures Referred By Contac t Referred To Contact Cardiology Diagnoses ST elevation myocardial infarction (STEMI), unspecified artery Ryan Salas MD [facility] [place] [address] [facility] [address] [place] [id number] Referral ID Status Reason Start Date Expiration Date V isits Requested Visits Authorized [id number] Closed Consult, Test & Treat 12/16/2023 12/15/2024 1 1 Encounter Details Date Type Department Care Team (Late st Contact Info) Description 03/21/2024 3:40 PM EDT Office Visit Cardiology at [address] [phone] Jj Davis MD [facility] [place] [address] ST elevation myocardial infarction involving left circumflex coronary artery; Primary hypertension; Hyperlipidemia, unspecified hyperlipidemia type Social History Tobacco Use Types Packs/Day Years Used Date Smoking Tobacco: Former Cigarettes 2.8 30 1 986 - 2016 Smokeless Tobacco: Never Comments:Patient quit smokin g initially in 2002 then relapsed for a brief period of time and quit again in 2016. Alcohol Use Standard Drinks/Week Comments Not Currently 0 (1 standard drink = 0.6 oz pur e alcohol) [facility] Utilities Answer Date Recorded In the [...] place to sleep or slept in a fpc (including now)? No 12/13/2023 DH IPV Inpatient [...] on file documented as of this encounter Last Filed Vital Signs Vital Sign Reading Time Taken Comments Blood Pressure 116/76 03/21/2024 3:17 PM EDT Pulse 81 03/21/2024 3:17 PM EDT Temperature - - Respiratory Rate - - Oxygen Saturation 95% 03/21/2024 3:17 PM EDT Inhaled Oxygen Concentration - - Weight 150 kg (330 lb 12.8 oz) 03/21/2024 3:17 P M EDT Height 180.3 cm (5' 11) 03/21/2024 3:17 PM EDT Body Mass Index 46.14 03/21/2024 3:17 PM EDT documented in this encounter Patient Instructions * Patient Instructions* Jj Davis MD - 03/21/2024 3:40 PM EDT I am making no changes to your medications today. There is a list available on the portal. I would like you to keep up with the cardiac rehab I will see you back in 6 months. documented in this encounter Progress Notes * Jj Davis MD - 03/21/2024 3:40 PM EDT Images from the original note were not included. [facility] [place] [address] [phone] CARDIOLOGY OUTPATIENT PROGRESS NOTE PRIMARY CARE PROVIDER: Leo Alegre DO REFERRING PROVIDER: Ryan Salas PROBLEM LIST: Patient Active Problem List Diagnosis Primary hypertension Hyperlipidemia STEMI (ST elevation myocardial infarction) 12/12/23 DYANA to Lcx, mod disease elsewhere, EF=41% MEDICATIONS: Current Outpatient Medications Medication Sig Dispense Refill metFORMIN (Fortamet) 500 mg ER 24 hr tablet Take 500 mg by mouth daily (with breakfast). metoprolol succinate XL (Toprol-XL) 100 mg ER 24 hr tablet Take 100 mg by mouth daily. clopidogreL (Plavix) 75 mg tablet Take 75 mg by mouth daily. Pt unsure of dose furosemide (Lasix) 20 mg tablet Take 20 mg by mouth 2 times daily. PT unsure of dose aspirin EC 81 mg EC (DR) tablet Take 81 mg by mouth daily. rosuvastatin (Crestor) 40 mg tablet Take 40 mg by mouth daily. Insulin Basaglar KwikPen U-100 100 unit/mL (3 mL) pen Inject 60 Units subcutaneously daily. insulin regular human U-500 (HumuLIN R U-500, Conc, Kwikpen) 500 unit/mL (3 mL) Insulin Pen Inject 80-100 Units subcutaneously every evening. 15 mL 3 Mounjaro 10 mg/0.5 mL Pen Injector Inject 10 mg subcutaneously once a week. Indications: type 2 diabetes mellitus 6 mL 3 empagliflozin (Jardiance) 25 mg tablet Take 1 tablet by mouth daily. 90 tablet 3 albuteroL (Proventil, Ventolin) (2.5 mg/3 mL) (0.083 %) Solution for Nebulization Take 3 mLs by nebulization every 4 hours as needed for Wheezing. 180 mL 5 Gvoke HypoPen 2-Pack 0.5 mg/0.1 mL Auto-Injector 3 times daily. umeclidinium-vilanteroL (Anoro Ellipta) 62.5-25 mcg/actuation Disk with Device Inhale 1 puff into the lungs daily. 3 each 3 nitroGLYcerin (Nitrostat) 0.[address] 1 tablet under the tongue every 5 minutes as needed for Chest pain for up to 20 doses. 20 tablet 0 insulin needles, disposable, 32 gauge x 5/32 Needle Inject 1 each subcutaneously nightly. Indications: diabetes 100 each 11 ketoconazole (NIZORAL) 2 % Cream as needed. losartan (Cozaar) 50 mg tablet Take 1 tablet by mouth daily. 90 tablet 3 insulin lispro (HumaLOG) 100 unit/mL Insulin Pen Inject 60 Units subcutaneously daily. 60 units twice a day Mounjaro 5 mg/0.5 mL Pen Injector Next dose will be 7.5 mg No current facility-administered medications for this visit. Subjective: Patient ID: Martín Mitchell is a 63 y.o. patient of Leo Alegre DO. HPI: This is a 63-year-old patient with no previous cardiac history up until an ST elevation SD in 12/05.He presented with severe substernal chest pain and diaphoresis. Cardiac catheterization showed an occluded circumflex coronary artery which had a successful intervention. He had multiple other lesions in the 60 to 70% range. These were treated medically. He was told that they might need future intervention. Since then he is done reasonably well. There was some confusion about cardiac rehab but when he was encouraged by his psychiatrist to answer the call from the rehab center he started doing this and is actually feeling much better. His functional capacity is improving. He still is easily fatigued and short of breath but this is probably very much attributable to his weight and the amount of marijuana that he smokes. He has no real angina and has not had any recurrence of the chest pain that was his presenting symptom. Blood pressure is well-controlled. He is adherent to his lipid-lowering therapy. He is not having any bleeding complications. REVIEW OF SYSTEMS: COPD, bipolar disorder, severe obesity Family History: Family History Problem Relation Age of Onset Respiratory Disease Neg Hx Social History: Social History Socioeconomic History Marital status: Single Spouse name: Not on file Number of children: Not on file Years of education: Not on file Highest education level: Not on file Occupational History Not on file Tobacco Use Smoking status: Former Packs/day: 2.75 Years: 30.00 Additional pack years: 0.00 Total pack years: 82.50 Types: Cigarettes Quit date: 2015 Years since quittin.3 Smokeless tobacco: Never Tobacco comments: Patient quit smoking initially in 2002 then relapsed for a brief period of time and quit again in 2016. 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 Social Determinants of Health Financial Resource Strain: Not on file Food Insecurity: No Food Insecurity (12/13/2023) Hunger Vital Sign Worried About Running Out of Food in the Last Year: Never true Ran Out of Food in the Last Year: Never true Transportation Needs: No Transportation Needs (12/13/2023) PRAPARE - Transportation Lack of Transportation (Medical): No Lack of Transportation (Non-Medical): No Physical Activity: Not on file Intimate Partner Violence: Not At Risk (12/12/2023) IPV Inpatient Questions Prevent Contact with Others: no Feels Threatened by Someone: no Feels Unsafe at Home: no Physical Signs of Abuse Present: no Housing Stability: Low Risk (12/13/2023) Housing Stability Vital Sign Unable to Pay for Housing in the Last Year: No Number of Places Lived in the Last Year: 1 Unstable Housing in the Last Year: No Objective: PHYSICAL EXAM: BP 116/76 Pulse 81 Ht 180.3 cm (5' 11) Wt (!) 150 kg (330 lb 12.8 oz) SpO2 95% BMI 46.14kg/m?? , Body mass index is 46.14 kg/m??. General: Pleasant. No distress. Skin: Warm and dry. HEENT: Anicteric sclera. Neck: JVP not elevated. No AJR. No carotid bruits. Chest: Clear to auscultation Heart: No heave. Regularly regular rhythm. Normal S1 and S2. No gallops. No murmurs. Abdomen: Nondistended. Soft. Nontender. Extremities: No edema. PROCTOLOGIST: Normal mentation. Psych: Appropriate affect. Labs: Lab Results Component Value Date WBC 14.6 (H) 12/16/2023 WBC 18.3 (H) 12/15/2023 HGB 13.9 12/16/2023 HGB 15.4 12/15/2023 PLATELET 256 12/16/2023 PLATELET 253 12/15/2023 NA 133 (L) 12/16/2023 NA 132 (L) 12/15/2023 NA 132 (L) 12/15/2023 K 3.4 (L) 12/16/2023 K 3.6 12/15/2023 CL 97 (L) 12/16/2023 CL 94 (L) 12/15/2023 CO2 25 12/16/2023 CO2 25 12/15/2023 BUN 26 (H) 12/16/2023 BUN 24 (H) 12/15/2023 CREATININE 0.85 12/16/2023 CREATININE 0.84 12/15/2023 Assessment and Plan: STEMI (ST elevation myocardial infarction) He is now [address] his [address] elevation SD. There was originally some concern that he might have to have secondary lesions intervened upon, but has been completely free of angina since then and I think there is not really an indication for this. Medical therapy of his coronary disease is appropriate with dual antiplatelet therapy with aspirin and clopidogrel, high-dose statin and appropriateblood pressure lowering medications. His ischemic cardiomyopathy is appropriately treated with all 4 major classes of medications. He is euvolemic on exam today and not exhibiting any CHF symptoms. Waldo making no changes to his regimen. I will see him back in 6 months. He knows to contact us with any changes in status. Primary hypertension Blood pressure is well-controlled on the current regimen. It includes a beta- jeimy and an ARB, appropriate to his LV dysfunction. Based on his blood pressures I do not think that there is room for upward titration. Hyperlipidemia Lipids are appropriately treated with a high-dose statin. I am making no changes. Patient Instructions I am making no changes to your medications today. There is a list available on the portal. I would like you to keep up with the cardiac rehab I will see you back in 6 months. Thank you for the opportunity to participate in this patient's cardiovascular care. All questions were answered and I look forward to the next visit. Jj Davis MD documented in this encounter Miscellaneous Notes * Assessment & Plan Note - Jj Davis MD - 03/21/2024 3:35 PM EDT Associated Problem(s): Hyperlipidemia Lipids are appropriately treated with a high-dose statin. I am making no changes. * Assessment & Plan Note - Jj Davis MD - 03/21/2024 3:35 PM EDT Associated Problem(s): Primary hypertension Blood pressure is well-controlled on the current regimen. It includes a beta- jeimy and an ARB, appropriate to his LV dysfunction. Based on his blood pressures I do not think that there is room for upward titration. * Assessment & Plan Note - Jj Davis MD - 03/21/2024 3:35 PM EDT Associated Problem(s): STEMI (ST elevation myocardial infarction) He is now [address] from his ST elevation SD. There was originally some concern that he might have to have secondary lesions intervened upon, but has been completely free of angina since then and I think there is not really an indication for this. Medical therapy of his coronary disease is appropriate with dual antiplatelet therapy with aspirin and clopidogrel, high-dose statin and appropriateblood pressure lowering medications. His ischemic cardiomyopathy is appropriately treated with all 4 major classes of medications. He is euvolemic on exam today and not exhibiting any CHF symptoms. Waldo making no changes to his regimen. I will see him back in 6 months. He knows to contact us with any changes in status. documented in this encounter Plan of Treatment Upcoming Encounters Date Type Department Care Team (Late st Contact Info) Description 07/02/2024 3:00 PM EDT Office [place] [address] Leo Flor MD [facility] [place] [address] 08/12/2024 3:40 PM EDT Office Visit Pulmonology at [place] [address] Siva Harrison MD [facility] [place] [address] 09/18/2024 1:00 PM EST Office Visit Cardiology at [place] [address] Jj Davis MD [facility] [address] documented as of this encounter Visit Diagnoses Diagnosis ST elevation myocardial infarction involving left circumflex coronary artery Acute myocardial infarction of other specified sites, initial episode of care Primary hypertension Unspecified essential hypertension Hyperlipidemia, unspecified hyperlipidemia type documented in this encounter Care Teams Elevator Constructor Supervisor Relationship Specialty Start Date End Date Leo Alegre DO [address] [place] [address] PCP - General Family Medicine 03/03/21 documented as of this encounter
--- OUTSIDE RECORDS SUMMARY | 2024-06-18 14:55 | XMS_ITS | Continuity of Care Document ---
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) - skilled nursing (current) use of oral hypoglycemic drugs(Final) - [...] Daily, # 30 tab, 0 Refill(s), Pharmacy: [facility], 179.5, cm, 12/12/23 14:44:00 EST, Height, 138.1, kg, 01/08/24 13:21:00 EST, Weight Dosing Start Date: 04/04/24 Status: Ordered Basaglar KwikPen 100 units/mL subcutaneous solution 60 units =, Subcutaneous, BID, # 15 mL, 3 Refill(s), Pharmacy: [facility], 179.5, cm, 12/12/23 14:44:00 EST, Height, 138.1, kg, 01/08/24 13:21:00 EST, Weight Dosing Start Date: 01/25/24 Status: Ordered clopidogrel 75 mg oral tablet 75 mg = 1 tab, Oral, Daily, # 30 tab, 0 Refill(s), Pharmacy: [facility], 179.5, cm, 12/12/23 14:44:00 EST, Height, 138.1, kg, 01/08/24 13:21:00 EST, Weight Dosing Start Date: 04/04/24 Status: Ordered Freestyle Kaylee 14 day sensor Freestyle Kaylee 14 day sensor, Freestyle Kaylee 14 day Sensor, appy new sensor every 14 days per package directions, Supply, See instructions, # 6 EA, 3 Refill(s), Pharmacy: [facility] Start Date: 01/09/23 Status: Ordered furosemide 40 mg oral tablet 40 mg = 1 tab, Oral, Daily, # 30 tab, 0 Refill(s), Pharmacy: [facility], 179.5, cm, 12/12/23 14:44:00 EST, Height, 138.1, kg, 01/08/24 13:21:00 EST, Weight Dosing Start Date: 04/04/24 Status: Ordered Gvoke HypoPen One Pack 0.5 mg/0.1 mL subcutaneous solution 0.5 mg = 0.1 mL, Subcutaneous, Once, # 0.1 mL, 2 Refill(s), Pharmacy: [facility], 179.5, cm, 12/12/23 14:44:00 EST, Height, 137, kg, 12/12/23 14:48:00 EST, Weight Dosing Start Date: 01/07/24 Status: Ordered HumaLOG KwikPen 100 units/mL injectable solution See Instructions, inject 3x a day 10 units for small meals 15 units for medium meals 20 units for large meals, # 15 mL, 3 Refill(s), Pharmacy: [facility], 179.5, cm, 12/12/23 14:44:00 EST, [...] area, # 60 g, 2 Refill(s), Pharmacy: [facility], 179.5, cm, 12/12/23 14:44:00 EST, Height, 151.59, kg, 04/10/24 15:28:00 EDT, Weight Dosing Start Date: 04/10/24 Status: Ordered losartan 50 mg oral tablet 50 mg = 1 tab, Oral, Daily, # 30 tab, 0 Refill(s), Pharmacy: [facility], 179.5, cm, 12/12/23 14:44:00 EST, Height, 138.1, kg, 01/08/24 13:21:00 EST, Weight Dosing Start Date: 03/14/24 Status: Ordered metFORMIN 500 mg oral tablet, extended release 500 mg = 1 tab, Oral, BID, # 60 tab, 0 Refill(s), Pharmacy: [facility], 179.5, cm, 12/12/23 14:44:00 EST, Height, 138.1, kg, 01/08/24 13:21:00 EST, Weight Dosing Start Date: 04/04/24 Status: Ordered metoprolol succinate 100 mg oral capsule, extended release 100 mg =, Oral, Daily, # 30 cap, 0 Refill(s), Pharmacy: [facility], 179.5, cm, 12/12/2413:44:00 EST, Height, [...] bedtime, # 30 tab, 0 Refill(s), Pharmacy: [facility], 179.5, cm, 12/12/23 14:44:00 EST, Height, 138.1, kg, 01/08/24 13:21:00 EST, Weight Dosing Start Date: 04/04/24 Status: Ordered spironolactone 25 mg oral tablet 25 mg = 1 tab, Oral, Daily, # 30 tab, 0 Refill(s), Pharmacy: [facility], 179.5, cm, 12/12/23 14:44:00 EST, [...] disease Confirmed Active Coronary artery disease involving sitka heart Confirmed Active Dysuria 6 Confirmed Active [...] Member Role: Primary Care Physician Address: Address: [address] [place] [phone]
--- OUTSIDE RECORDS SUMMARY | 2024-06-18 14:55 | XMS_ITS | Encounter Summary ---
Author Organization [facility] Address [facility] [place] [address] Care Team Providers Care Clerical Car Checker Name Role Phone Leo Alegre DO Primary Care Provider [phone]- [phone] Reason for Visit * Reason Comments Follow-up Encounter Details Date Type Department Care Team (Late st Contact Info) Description 01/15/2024 1:30 PM EST Office Visit Dermatology at [place] [address] [facility] [place] [phone] Hardik Dejesus MD [address] [facility] [place] [address] [facility] Social History Tobacco Use Types Packs/Day Years Used Date Smoking Tobacco: Former Cigarettes 2.8 30 1 973 - 2003 Smokeless Tobacco: Never Alcohol Use Standard Drinks/Week Comments Not Currently 0 (1 standard drink = 0.6 oz pur e alcohol) [facility] Utilities Answer Date Recorded In the past 12 months has e [employer], gas, oil, or water [employer] threatened to shut off services in your [...] place to sleep or slept in a usp (including now)? No 12/13/2023 IPV Inpatient Questions [...] on file documented as of this encounter Progress Notes * Hardik Dejesus MD - 01/15/2024 1:30 PM EST Problem: 1. Acrochordons 2. S/p stent placement status post November Martín follows up for treatment of skin tags on his neck and on his leg. Physical examination reveals a pleasant 63-year-old gentleman who has tags present on either lateral hip and on the left and right base of his neck. Assessment plan: Acrochordons 1. The sites were anesthetized and removed electrodesiccation 2. Return to clinic as needed CC: Leo Alegre DO documented in this encounter Plan of Treatment Upcoming Encounters Date Type Department Care Team (Late st Contact Info) Description 07/02/2024 3:00 PM EDT Office [place] [address] Leo Flor MD [facility] [place] [address] 08/12/2024 3:40 PM EDT Office [place] [phone] Siva Harrison MD [facility] [place] [address] 09/18/2024 1:00 PM EST Office Visit Cardiology at [address] [phone] Jj Davis MD [facility] [place] [address] documented as of this encounter Visit Diagnoses Diagnosis Acrochordon Unspecified hypertrophic and atrophic condition of skin documented in this encounter Care Teams Clerical Car Checker Relationship Specialty Start Date End Date Leo Alegre DO [address] [place] [address] PCP - General Family Medicine 03/03/21 documented as of this encounter
--- OUTSIDE RECORDS SUMMARY | 2024-06-18 14:55 | XMS_ITS | Encounter Summary ---
Author Organization Formerly [facility] Address [facility] [place] [address] Care Team Providers Care Facility Service Associate Name Role Phone Leo Alegre DO Primary Care Provider +1- [phone] Reason for Visit * Consultation (Routine) - Closed Specialty Diagnoses / Procedures Referred By Contac t Referred To Contact Endocrinology Diagnoses Type 2 diabetes mellitus with other circulatory complication, without long-term current use of insulin Davy Schwab MD [facility] [place] [address] [facility] Endocrinology [address] [place] [phone] Referral ID Status Reason Start Date Expiration Date V isits Requested Visits Authorized [id number] Closed Consult, Test & Treat 12/16/2023 12/15/2024 1 1 Encounter Details Date Type Department Care Team (Latest Contact Info) Description 02/26/2024 1:30 PM EDT Office [place] [address] Leo Flor MD [facility] [address] [place] [address] Type 2 diabetes mellitus with hyperglycemia, with long-term current use of insulin; Adult BMI 45.0-49.9 kg/sq m; ASCVD (arteriosclerotic cardiovascular disease) Social History Tobacco Use Types Packs/Day Years Used Date Smoking Tobacco: Former Cigarettes 2.8 30 1 986 - 2016 Smokeless Tobacco: Never Comments:Patient quit smokin g initially in 2002 then relapsed for a brief period of time and quit again in 2016. Alcohol Use Standard Drinks/Week Comments Not Currently 0 (1 standard drink = 0.6 oz pur e alcohol) [facility] Utilities Answer Date Recorded In the past [...] place to sleep or slept in a fdc (including now)? No 12/13/2023 IPV Inpatient Questions [...] Sign Reading Time Taken Comments Blood Pressure 96/66 02/26/2024 1:10 PM EDT Pulse 70 02/26/2024 1:10 PM EDT Temperature 36.2 ??C (97.1 ??F) 02/26/2024 1:10 PM ED T Respiratory Rate 20 02/26/2024 1:10 PM EDT Oxygen Saturation 95% 02/26/2024 1:10 PM EDT Inhaled Oxygen Concentration - - Weight 147.6 kg (325 lb 6.4 oz) 02/26/2024 1:10 PM EDT Height 180.3 cm (5' 11) 02/26/2024 1:10 PM EDT Body Mass Index 45.38 02/26/2024 1:10 PM EDT documented in this encounter Patient Instructions * Patient Instructions* Leo Flor MD - 02/26/2024 1:30 PM EDT Change in insulin: USE 60 units basaglar in am NOT IN PM USE 80 units U500 at 9-10 PM- raise this 5 units a week if blood glucose in am in over 150 Continue 20 lispro with meals Goal is pre-breakfast glucose under 150 ADD Jardiance 215 daily Continue metformin 500 twice a day INCREASE Mounjaro to 10 mg a week documented in this encounter Progress Notes * Leo Flor MD - 02/26/2024 1:30 PM EDT We are asked by Dr Schwab to see this 63 year old man to review Type 2 diabetes care Latest Reference Range & Units 12/15/23 12:53 12/16/23 04:01 Creatinine 0.80 - 1.50 mg/dL 0.84 0.85 Estimated GFR >=60 mL/min/1.73 m?? 99 99 Latest Reference Range & Units 12/13/23 00:34 Hemoglobin A1C 4.3 - 5.6 % 10.0 (H) (H): Data is abnormally high History Dx in [address] Dailey of nephrology who noted high glucose Had DKA on Dec 12 with AK Started metformin, then ozempic, then mounjaro 7.5 Has gained weight - 25 lbs since AK. Admits to dietary indiscretion - a particular flavored yogurt multiple times a day - has stopped Right now 297 not eaten > 14 hours Regimen Oral medications metformin mounjaro 7.5 Basal insulin basglar 60 bid Bolus (meal and correction) insulin lispro 20 for meals Home glucose monitoring: Recommended frequency uses a murphy Results 250's all day Episodes of hypoglycemia Warning signs: has not had Frequency of self treated episodes none Frequency of episodes needing assistance none Dietary plan: 24 hour diet recall: Breakfast skip AM snack Lunch meatball sub Afternoon snack Dinner scallops veg After dinner snack Exercise routine Preferred exercise will do cardiac rehab Frequency starts tomorrow Diabetes complications review eyes No retinopathy feet NO Abnormal shape NO Symptoms Foot ulcers: None NO Prior amputations Overall risk of foot problems Low NO Uses prescription Inserts Shoes kidneys none Autonomic neuropathies : NO Early satiety /nausea (gastroparesis) NO Problems emptying bladder ? Unable to detect low sugars NO Persistent rapid heartrate tachycardia cardiac NO chest pain on exertion SOME shortness of breath on 1 flight of stairs NO Shortness of breath at rest NO history of Cardiac stent Cardiac bypass surgery Congestive heart failure Peripheral vascular disease: Neck arteries (carotids) Leg arterieis Stroke Diabetes preventative services last eye exam: over a year June last urine protein measurement ? last kidney function test (creatinine) 2023 last cholesterol panel: ? regular behavioral health care manager visits NO special shoes: NO flu shot : NO COVID had initial vaccination, will not get boosters pneumovax: NO prevnar (pneumonia shot update) NO Kidney protection: Uses lisinopril or losartan type medications: ARB Blood pressure 96/66 Heart protection: Uses low dose aspirin and Plavix Uses cholesterol lowering medication ( statin) YES habits Started smoking age 14 Quit smoking 2002, restarted 2016 for 6 No etoh PMH 1) emphysema 2) DM2 3) urate stones 4) AK 2023; had a stent- will have another cath for possible stenting 5) bipolar 6) CPAP Allergies none Medications 02/26/24 1400 Medication Sig Taking? Insulin Basaglar KwikPen U-100 100 unit/mL (3 mL) pen Inject 60 Units subcutaneously 2 times daily.Yes albuteroL (Proventil, Ventolin) (2.5 mg/3 mL) (0.083 %) Solution for Nebulization Take 3 mLs by nebulization every 4 hours as needed for Wheezing. Yes Gvoke HypoPen 2-Pack 0.5 mg/0.1 mL Auto-Injector Yes insulin lispro (HumaLOG) 100 unit/mL Insulin Pen 60 units twice a day Yes Mounjaro 5 mg/0.5 mL Pen Injector Next dose will be 7.5 mg Yes umeclidinium-vilanteroL (Anoro Ellipta) 62.5-25 mcg/actuation Disk with Device Inhale 1 puff into the lungs daily. Yes losartan (Cozaar) 50 mg tablet Take 1 tablet by mouth daily for 90 days. Yes rosuvastatin (Crestor) 40 mg tablet Take 1 tablet by mouth every evening for 90 days. Yes metoprolol succinate XL (Toprol-XL) 100 mg ER 24 hr tablet Take 1 tablet by mouth daily for 90 days. Yes aspirin EC 81 mg EC (DR) tablet Take 1 tablet by mouth daily for 90 days. Yes clopidogreL (Plavix) 75 mg tablet Take 1 tablet by mouth daily for 90 days. Yes spironolactone (Aldactone) 25 mg tablet Take 1 tablet by mouth daily for 90 days. Yes nitroGLYcerin (Nitrostat) 0.[address] 1 tablet under the tongue every 5 minutes as needed for Chest pain for up to 20 doses. Yes furosemide (Lasix) 40 mg tablet Take 1 tablet by mouth daily for 90 days. Yes insulin needles, disposable, 32 gauge x 5/32 Needle Inject 1 each subcutaneously nightly. Indications: diabetes Yes metFORMIN XR (Glucophage XR) 500 mg ER 24 hr tablet Take 2 tablets by mouth daily for 90 days. Yes ketoconazole (NIZORAL) 2 % Cream as needed. Yes insulin regular human U-500 (HumuLIN R U-500, Conc, Kwikpen) 500 unit/mL (3 mL) Insulin Pen Inject 80-100 Units subcutaneously every evening. Mounjaro 10 mg/0.5 mL Pen Injector Inject 10 mg subcutaneously once a week. Indications: type 2 diabetes mellitus empagliflozin (Jardiance) 25 mg tablet Take 1 tablet by mouth daily. FH + DM2 - thyroid - early AK - prostate cancer - colon cancer SH works at a [employer] lives [place] mix enjoys skiing enjoys getting out ROS no dental issues +++ asthma - arthritis - ulcers BP 96/66 (BP Location (NBP): Left arm, Patient Position: Sitting, BP Cuff Sizes: Large Adult (32-43cm)) Pulse 70 Temp 36.2 ??C (97.1 ??F) (Temporal) Resp 20 Ht 180.3 cm (5' 11) Wt (!) 147.6 kg (325 lb 6.4 oz) SpO2 95% BMI 45.38 kg/m?? appearance: pleasant man with a very strong deep voice eyes: no retinopathy seen by green light ext: no pitting edema feet: shape is normal skin is abnormal - fungal dermatitis nails are not mycotic pulses in feet : dorsalis pedis-yes posterior tibial-yes neuro: gait is normal appreciation of 10 g of pressure is present 1) DM2 - the fact that his blood glucose today was 287 after not eating for 14 h and taking 60 units of glargine last night indicates significant insulin resistance in the 120 units of long acting insulin does not control hepatogluconeogenesis. I recommended that we push the mounjaro dose to 10 and then 15 but add U500 80 + units at bedtime instead of the second glargine dose to get the fbs [id number] and see if the rest of the day is improved on this regimen. A major goal is to not increase weight from here. I also added jardiance 25 as he has had an AK and has fluid retention We will see himback in 2 mo. I went over this overnight insulin strategy with him Regimen: Change in insulin: USE 60 units basaglar in am NOT IN PM USE 80 units U500 at 9-10 PM- raise this 5 units a week if blood glucose in am in over 150 Continue 20 lispro with meals Goal is pre-breakfast glucose under 150 ADD Jardiance 25 daily Continue metformin 500 twice a day INCREASE Mounjaro to 10 mg a week 2) BMI > 45 - he is not interested in bariatric surgery. Mounjaro may be able to assist in significant weight loss 3) history of DKA - it is likely the DKA resulted from the high epinephrine state of an acute AK and does not suggest he is a Type 1 diabetic documented in this encounter Plan of Treatment Upcoming Encounters Date Type Department Care Team (Late st Contact Info) Description 07/02/2024 3:00 PM EDT Office [place] [phone] Leo Flor MD [facility] [place] [address] 08/12/2024 3:40 PM EDT Office Visit Pulmonology at [place] [phone] Siva Harrison MD [facility] PULMONARY [place] [address] 09/18/2024 1:00 PM EST Office Visit Cardiology at [address] [phone] Jj Davis MD [facility] [place] [address] documented as of this encounter Visit Diagnoses Diagnosis Type 2 diabetes mellitus with hyperglycemia, with long-term current use of insulin Adult BMI 45.0-49.9 kg/sq m Body Mass Index 45.0-49.9, adult ASCVD (arteriosclerotic cardiovascular disease) Unspecified cardiovascular disease documented in this encounter Care Teams Facility Service Associate Relationship Specialty Start Date End Date Leo Alegre DO [address] [place] [id number] PCP - General Family Medicine 03/03/21 documented as of this encounter
--- OUTSIDE RECORDS SUMMARY | 2024-06-18 14:55 | XMS_ITS | Encounter Summary ---
Author Organization [facility] Address [facility] [place] [address] Care Team Providers Care Clinical Documentation Spec Name Role Phone Leo Alegre DO Primary Care Provider +1- [phone] Encounter Details Date Type Department Care Team (Latest Contact Info) Description 01/15/2024 Travel Social History Tobacco Use Types Packs/Day Years Used Date Smoking Tobacco: Former Cigarettes 2.8 30 1 973 - 2002 Smokeless Tobacco: Never Alcohol Use Standard Drinks/Week Comments Not Currently 0 (1 standard drink = 0.6 oz pur e alcohol) [facility] Utilities Answer Date Recorded In the past [...] place to sleep or slept in a intermediate (including now)? No 12/13/2023 IPV Inpatient Questions [...] 3:00 PM EDT Office Visit Endocrinology at [place] [address] Leo Flor MD [facility] [place] [address] 08/12/2024 3:40 PM EDT Office Visit Pulmonology at [place] [address] Siva Harrison MD [facility] [place] [address] 09/18/2024 1:00 PM EST Office [place] [address] Jj Davis MD [facility] [place] [address] documented as of this encounter Visit Diagnoses Not on filedocumented in this encounter Care Teams Clinical Documentation Spec Relationship Specialty Start Date End Date Leo Alegre DO [address] [place] [phone] PCP - General Family Medicine 03/03/21 documented as of this encounter
--- OUTSIDE RECORDS SUMMARY | 2024-06-18 14:55 | XMS_ITS | Encounter Summary ---
Author Organization [facility] [place] [address] Care Team Providers Care Leather Worker Name Role Phone Leo Alegre DO Primary Care Provider +1- [phone] Reason for Referral * Diagnostic Test (Routine) - Closed Specialty Diagnoses / Procedures Referred By Contac t Referred To Contact Radiology Diagnoses Chronic obstructive pulmonary disease, unspecified COPD type Cigarette nicotine dependence in remission Procedures CT Chest Screening Lung Cancer Siva Harrison MD [facility] [place] [address] [facility] [place] [address] Referral ID Status Reason Start Date Expiration Date V isits Requested Visits Authorized [id number] Closed Specialty Service Requested 09/14/2023 03/14/2025 1 1 Reason for Visit * Diagnostic Test (Routine) - Closed Specialty Diagnoses / Procedures Referred By Contac t Referred To Contact Radiology Diagnoses Chronic obstructive pulmonary disease, unspecified COPD type Cigarette nicotine dependence in remission Procedures CT Chest Screening Lung Cancer Siva Harrison MD [facility] [place]MONARY [place] [address] [facility] [place] [address] Referral ID Status Reason Start Date Expiration Date V isits Requested Visits Authorized [id number] Closed Specialty Service Requested 09/14/2023 03/14/2025 1 1 Encounter Details Date Type Department Care Team (Latest Contact Info) Description 02/12/2024 11:40 AM EDT - 02/12/2024 11:59 PM EDT Hospital Encounter CT Scan at [facility] [place] [address] Siva Harrison MD [facility] DR PULMONARY [place] [address] Chronic obstructive pulmonary disease, unspecified COPD type; Cigarette nicotine dependence in remission Discharge Disposition: Home Social History Tobacco Use Types Packs/Day Years Used Date Smoking Tobacco: Former Cigarettes 2.8 30 1 986 - 2016 Smokeless Tobacco: Never Comments:Patient quit smokin g initially in 2002 then relapsed for a brief period of time and quit again in 2016. Alcohol Use Standard Drinks/Week Comments Not Currently 0 (1 standard drink = 0.6 oz pur e alcohol) [facility] Utilities Answer Date Recorded In the past 12 months has th e [employer], gas, oil, or water [employer] threatened to shut off services in your [...] place to sleep or slept in a penitentiary (including now)? No 12/13/2023 DH IPV Inpatient [...] on file documented as of this encounter Medications at Time of Discharge Medication Sig Dispensed Refills Start Date End Date Insulin Basaglar KwikPen U-100 100 unit/mL (3 mL) pen Inject 60 Units subcutaneously daily. 01/08/2024 albuteroL (Proventil, Ventolin) (2.5 mg/3 mL) (0.083 %) Solution for Nebulization Take 3 mLs by nebulization every 4 hours as needed for Wheezing. 180 mL 5 02/12/2024 Gvoke HypoPen 2-Pack 0.5 mg/0.1 mL Auto-Injector 3 times daily. 01/08/2024 insulin lispro (HumaLOG) 100 unit/mL Insulin Pen Inject 60 Units subcutaneously daily. 60 units twice a day 12/31/2023 Mounjaro 5 mg/0.5 mL Pen Injector Next dose will be 7.5 mg 01/07/2024 umeclidinium-vilanter oL (Anoro Ellipta) 62.5-25 mcg/actuation Disk with DeviceIndications:Chr onic obstructive pulmonary disease, unspecified COPD type,Cigarette nicotine dependence in remission Inhale 1 puff into the lungs daily. 3 each 3 01/09/2024 nitroGLYcerin (Nitrostat) 0.[address] 1 tablet under the tongue every 5 minutes as needed for Chest pain for up to 20 doses. 20 tablet 12/16/2023 insulin needles, disposable, 32 gauge x 5/32 NeedleIndications:rachna betes mellitus Inject 1 each subcutaneously nightly. Indications: diabetes 100 each 11 12/16/2023 ketoconazole (NIZORAL) 2 % Cream as needed. 08/15/2017 losartan (Cozaar) 50 mg tablet Take 1 tablet by mouth daily for 90 days. 30 tablet 2 12/16/2023 03/15/2024 rosuvastatin (Crestor) 40 mg tablet Take 1 tablet by mouth every evening for 90 days. 30 tablet 2 12/16/2023 03/15/2024 metoprolol succinate XL (Toprol-XL) 100 mg ER 24 hr tablet Take 1 tablet by mouth daily for 90 days. 30 tablet 2 12/16/2023 03/15/2024 aspirin EC 81 mg EC (DR) tablet Take 1 tablet by mouth daily for 90 days. 30 tablet 2 12/16/2023 03/15/2024 clopidogreL (Plavix) 75 mg tablet Take 1 tablet by mouth daily for 90 days. 30 tablet 2 12/16/2023 03/15/2024 spironolactone (Aldactone) 25 mg tablet Take 1 tablet by mouth daily for 90 days. 30 tablet 2 12/16/2023 03/15/2024 furosemide (Lasix) 40 mg tablet Take 1 tablet by mouth daily for 90 days. 30 tablet 2 12/16/2023 03/15/2024 metFORMIN XR (Glucophage XR) 500 mg ER 24 hr tablet Take 2 tablets by mouth daily for 90 days. 60 tablet 2 12/16/2023 03/15/2024 NovoLOG Flexpen U-100 Insulin 100 unit/mL (3 mL) Insulin Pen Inject 10-20 Units subcutaneously 3 times daily (with meals). Take 10 units with small meals, 15 units with medium meals, and 20 units with large meals. 15 mL 12/16/2023 02/26/2024 documented as of this encounter Plan of Treatment Upcoming Encounters Date Type Department Care Team (Late st Contact Info) Description 07/02/2024 3:00 PM EDT Office [place] [phone] Leo Flor MD [facility] [place] [address] 08/12/2024 3:40 PM EDT Office [place] [phone] Siva Harrison MD [facility] [place]MONARY [place] [address] 09/18/2024 1:00 PM EST Office Visit Cardiology at [address] [phone] Jj Davis MD [facility] [place] [address] documented as of this encounter Procedures Procedure Name Priority Date/Time Associated Diagnosis Comments CT CHEST SCREENING LUNG CANCER Routine 02/12/2024 11:56 AM EDT Chronic obstructive pulmonary disease, unspecified COPD type Cigarette nicotine dependence in remission documented in this encounter Results * CT Chest Screening Lung Cancer (02/12/2024 11:56 AM EDT) Anatomical Region Laterality Modality Computed Tomogra phy Impressions 02/15/2024 3:22 PM EDT Lung-RADS 1 (Negative) RECOMMENDATION: Return to CT screening in one year Thank you for letting us participate in the care of this patient. ??If you are a health care provider and have any questions regarding this report, please contact the number below. ??For patients who have questions please contact the health career development manager that requested your imaging first. ? Narrative 02/15/2024 3:22 PM EDT EXAMINATION: CT CHEST SCREENING LUNG CANCER CLINICAL HISTORY: Lung cancer annual screening, asymptomatic, former smoker quit w/in last 15 yrs (min. 20 pack-yrs) Asymptomatic but at high risk for lung cancer TECHNIQUE: Noncontrast, low-dose chest CT (LDCT) per [facility] [place] lung cancer screening protocol. COMPARISON: None FINDINGS: Lung-RADS Lung screening specific: Small diffusely calcified nodules in both lower lobes. No noncalcified lung nodules Potentially significant incidental findings: None Other incidental findings: Coronary calcifications as well as stent in the proximal left circumflex. Old left ninth and 10th rib fractures. Procedure Note Jj Wray MD - 02/15/2024 EXAMINATION: CT CHEST SCREENING LUNG CANCER CLINICAL HISTORY: Lung cancer annual screening, asymptomatic, formersmoker quit w/in last 15 yrs (min. 20 pack-yrs) Asymptomatic but at high risk for lung cancer TECHNIQUE: Noncontrast, low-dose chest CT (LDCT) per [facility] [place] [place] lung cancerscreening protocol. COMPARISON: None FINDINGS: Lung-RADS Lung screening specific: Small diffusely calcified nodules in both lowerlobes. No noncalcified lung nodules Potentially significant incidental findings: None Other incidental findings: Coronary calcifications as well as stent inthe proximal left circumflex. Old left ninth and 10th rib fractures. IMPRESSION Lung-RADS 1 (Negative) RECOMMENDATION: Return to CT screening in one year Thank you for letting us participate in the care of this patient. If youare a health care provider and have any questions regarding this report,please contact the number below. For patients who have questions please contactthe health career development manager that requested your imaging first. Siva Yen MD IMG CT ORDERABLES documented in this encounter Visit Diagnoses Diagnosis Chronic obstructive pulmonary disease, unspecified COPD type Cigarette nicotine dependence in remission Tobacco use disorder documented in this encounter Care Teams Leather Worker Relationship Specialty Start Date End Date Leo Alegre DO [address] [place] [address] PCP - General Family Medicine 03/03/21 documented as of this encounter
--- OUTSIDE RECORDS SUMMARY | 2024-06-18 14:55 | XMS_ITS | Encounter Summary ---
Author Organization [facility] Address [facility] [place] [address] Care Team Providers Care Associate Professor Plant Pathology Name Role Phone Leo Alegre DO Primary Care Provider +1- [phone] Encounter Details Date Type Department Care Team (Latest Contact Info) Description 01/31/2024 Travel Social History Tobacco Use Types Packs/Day Years Used Date Smoking Tobacco: Former Cigarettes 2.8 30 1 973 - 2002 Smokeless Tobacco: Never Alcohol Use Standard Drinks/Week Comments Not Currently 0 (1 standard drink = 0.6 oz pur e alcohol) [facility] Utilities Answer Date Recorded In [...] place to sleep or slept in a snf (including now)? No 12/13/2023 IPV Inpatient Questions [...] 3:00 PM EDT Office Visit Endocrinology at [place] [address] Leo Flor MD [facility] [place] [address] 08/12/2024 3:40 PM EDT Office Visit Pulmonology at [place] [address] Siva Harrison MD [facility] [address] 09/18/2024 1:00 PM EST Office [place] [address] Jj Davis MD [facility] [place] [address] documented as of this encounter Visit Diagnoses Not on filedocumented in this encounter Care Teams Associate Professor Plant Pathology Relationship Specialty Start Date End Date Leo Alegre DO [address] [place] [phone] PCP - General Family Medicine 03/03/21 documented as of this encounter
--- OUTSIDE RECORDS SUMMARY | 2024-06-18 14:55 | XMS_ITS | Continuity of Care Document ---
Author Organization [facility] Address [address] [place] [phone] Care Team Providers Care Rope Laying Machine Operator Name Role Phone Leo Locke DO Primary Care Physician Encounter [facility] FIN NBR [id number] Date(s): 07/19/23 - 07/19/[address] [address]- Encounter Diagnosis Other forms of dyspnea(Final) - Discharge Disposition: Home or Self Care [...] instructions, # 6 EA, 3 Refill(s), [facility] Start Date: 01/09/23 Status: Ordered High Potency [...] Use:. 1 Sex 1ECW states quit 2002 Pulmonary function study * Nurys Rodriguez: PERFORM Event Display: Pulmonary Function Studies Authored Date: PFT Questionnaire & Order Electronically Signed on 07/19/23 11:39 AM Nurys Rodriguez * Nurys Rodriguez: PERFORM Event Display: Pulmonary Function Studies Authored Date: * Nurys Rodriguez: PERFORM Event Display: Pulmonary Function Studies Authored Date: Faxed to Dr. Shiraz Cherry [facility] on 07/19/2023 at 1140 with confirmation #: [id number]. Electronically Signed on 07/19/23 11:41 AM Nurys Rodriguez Patient Care team information Care Team Personnel Name: Leo Locke DO Position: Physician Member Role: Primary Care Physician Address: Address: [address] [place] [phone]
--- OUTSIDE RECORDS SUMMARY | 2024-06-18 14:55 | XMS_ITS | Encounter Summary ---
Author Organization [facility] Address [facility] [place] [address] Care Team Providers Care Station Superintendent Name Role Phone Leo Alegre DO Primary Care Provider +1- [phone] Reason for Visit * Reason Onset Date Comments Medication Refill 01/09/2024 Encounter Details Date Type Department Care Team (Late st Contact Info) Description 01/09/2024 [place] [address] Siva Harrison MD [facility] [place] [address] Chronic obstructive pulmonary disease, unspecified COPD type; Cigarette nicotine dependence in remission Social History Tobacco Use Types Packs/Day Years Used Date Smoking Tobacco: Former Cigarettes 2.8 30 1 973 - 2002 Smokeless Tobacco: Never Alcohol Use Standard Drinks/Week Comments Not Currently 0 (1 standard drink = 0.6 oz pur e alcohol) [facility] Utilities Answer Date Recorded In the past 12 months has e [employer], gas, oil, or water [employer] threatened to shut off services in your [...] place to sleep or slept in a custodial (including now)? No 12/13/2023 DH IPV Inpatient [...] encounter Miscellaneous Notes * Telephone Encounter - Jorge Luis Santa - 01/09/2024 12:37 PM EST Name of Medication and Dose: (Dose and frequency as stated in medication list) umeclidinium-vilanteroL (Anoro Ellipta) 62.5-25 mcg/actuation Disk with Device / Inhale 1 puff into the lungs daily. PHARMACY NAME: [facility] - [address] PHARMACY PHONE: [phone] Would patient like script sent directly to pharmacy? yes Would patient like paper script mailed to home address no Caller/ Patient aware of 1-2 business day to process. Patient advised of prescription dated 01/02/24 to [facility]. Patient stated he was not aware of this prescription and not familiar with [facility] either. Patient would like prescription to pharmacy listed above. documented in this encounter Plan of Treatment Upcoming Encounters Date Type Department Care Team (Late st Contact Info) Description 07/02/2024 3:00 PM EDT Office Visit Endocrinology at [place] [phone] Leo Flor MD [facility] [place] [address] 08/12/2024 3:40 PM EDT Office Visit Pulmonology at [address] Siva Harrison MD [facility] [place] [address] 09/18/2024 1:00 PM EST Office Visit Cardiology at [place] [phone] Jj Davis MD [facility] [place] [address] documented as of this encounter Visit Diagnoses Diagnosis Chronic obstructive pulmonary disease, unspecified COPD type Cigarette nicotine dependence in remission Tobacco use disorder documented in this encounter Care Teams Station Superintendent Relationship Specialty Start Date End Date Leo Alegre DO [address] [place] [address] PCP - General Family Medicine 03/03/21 documented as of this encounter
--- OUTSIDE RECORDS SUMMARY | 2024-06-18 14:55 | XMS_ITS | Encounter Summary ---
Author Organization [facility] [place] [address] Care Team Providers Care Graphics Software Engineer Name Role Phone Leo Alegre DO Primary Care Provider +1- [phone] Encounter Details Date Type Department Care Team (Late st Contact Info) Description 03/25/2024 Telephone Endocrinology at [facility] [place] [phone] Lakeshia Blanchard, RN Social History Tobacco Use Types Packs/Day Years Used Date Smoking Tobacco: Former Cigarettes 2.8 30 1 986 - 2016 Smokeless Tobacco: Never Comments:Patient quit smokin g initially in 2002 then relapsed for a brief period of time and quit again in 2016. Alcohol Use Standard Drinks/Week Comments Not Currently 0 (1 standard drink = 0.6 oz pur e alcohol) [facility] Utilities Answer Date Recorded In the past 12 months has [employer], gas, oil, or water [employer] threatened to shut off services in your [...] in a penitentiary (including now)? No 12/13/2023 IPV Inpatient Questions [...] encounter Miscellaneous Notes * Telephone Encounter - Regine Lopez - 03/26/2024 9:25 AM EDT Patient calling back regarding medication question. He is inquiring if he should continue with Basaglar * Telephone Encounter - Lakeshia Blanchard RN - 03/25/2024 9:32 AM EDT Copied from [facility] #[id number]. Topic: Specialty Dept CRMs - Generic Call >> March 25, 2024 8:58 AM Regine Lantigua wrote: Specialist: Leo Flor Relationship (if other than patient-full name): self Reason for Call: Patient calling regarding 03/22/24 My encounter. He states that he has ceased using the concentrated insulin since the low blood sugar readings over the weekend. He is requesting acall back to discuss next best steps for medications. documented in this encounter Plan of Treatment Upcoming Encounters Date Type Department Care Team (Late st Contact Info) Description 07/02/2024 3:00 PM EDT Office Visit Endocrinology at [place] [phone] Leo Flor MD [facility] [place] [address] 08/12/2024 3:40 PM EDT Office Visit Pulmonology at [address] Siva Harrison MD [facility] [address] 09/18/2024 1:00 PM EST [place] [address] Jj Davis MD [facility] [place] [address] documented as of this encounter Visit Diagnoses Not on filedocumented in this encounter Care Teams Graphics Software Engineer Relationship Specialty Start Date End Date Leo Alegre DO [address] [place] [address] PCP - General Family Medicine 03/03/21 documented as of this encounter
--- OUTSIDE RECORDS SUMMARY | 2024-06-18 14:55 | XMS_ITS | Encounter Summary ---
Author Organization [facility] Address [facility] [place] [address] Care Team Providers Care Germination Worker Name Role Phone Leo Alegre DO Primary Care Provider +1- [phone] Encounter Details Date Type Department Care Team (Latest Contact Info) Description 02/26/2024 Travel Social History Tobacco Use Types Packs/Day Years Used Date Smoking Tobacco: Former Cigarettes 2.8 30 1 986 - 2016 Smokeless Tobacco: Never Comments:Patient quit smokin g initially in 2002 then relapsed for a brief period of time and quit again in 2016. Alcohol Use Standard Drinks/Week Comments Not Currently 0 (1 standard drink = 0.6 oz pur e alcohol) [facility] Utilities Answer Date Recorded In [...] place to sleep or slept in a care home (including now)? No 12/13/2023 IPV Inpatient Questions [...] 3:00 PM EDT Office Visit Endocrinology at [place] [address] Leo Flor MD [facility] [place] [address] 08/12/2024 3:40 PM EDT Office Visit Pulmonology at [address] Siva Harrison MD [facility] [place] [address] 09/18/2024 1:00 PM EST [place] [address] Jj Davis MD [facility] [place] [address] documented as of this encounter Visit Diagnoses Not on filedocumented in this encounter Care Teams Germination Worker Relationship Specialty Start Date End Date Leo Alegre DO [address] [place] [address] PCP - General Family Medicine 03/03/21 documented as of this encounter
--- OUTSIDE RECORDS SUMMARY | 2024-06-18 14:55 | XMS_ITS | Encounter Summary ---
Author Organization [facility] Address [facility] [place] [address] Care Team Providers Care Coordinate Measuring Machine Programmer Name Role Phone Leo Alegre DO Primary Care Provider +1- [phone] Encounter Details Date Type Department Care Team (Latest Contact Info) Description 02/12/2024 Travel Social History Tobacco Use Types Packs/Day Years Used Date Smoking Tobacco: Former Cigarettes 2.8 30 1 986 - 2016 Smokeless Tobacco: Never Comments:Patient quit smokin g initially in 2002 then relapsed for a brief period of time and quit again in 2016. Alcohol Use Standard Drinks/Week Comments Not Currently 0 (1 standard drink = 0.6 oz pur e alcohol) [facility] Utilities Answer Date Recorded In the [...] 3:00 PM EDT Office Visit Endocrinology at [place] [address] Loe Flor MD [facility] [place] [address] 08/12/2024 3:40 PM EDT Office Visit Pulmonology at [address] Siva Harrison MD [facility] [place] [address] 09/18/2024 1:00 PM EST Office [place] [address] Jj Davis MD [facility] [place] [address] documented as of this encounter Visit Diagnoses Not on filedocumented in this encounter Care Teams Coordinate Measuring Machine Programmer Relationship Specialty Start Date End Date Leo Alegre DO [address] [place] [address] PCP - General Family Medicine 03/03/21 documented as of this encounter
--- OUTSIDE RECORDS SUMMARY | 2024-06-18 14:55 | XMS_ITS | Continuity of Care Document ---
Author Organization [facility] Amb[facility] Address [address] [place] [address] Care Team Providers Care Slinger Sequins Name Role Phone Leo Locke DO Primary Care Physician Encounter [facility] NBR [id number] Date(s): 04/11/23 - 04/11/23 [facility] [address] [place] [address] [place] Encounter Diagnosis Type 2 diabetes mellitus(Discharge Diagnosis) - 04/11/23 Chronic obstructive pulmonary disease, unspecified(Discharge Diagnosis) - 04/11/23 Essential hypertension(Discharge Diagnosis) - 04/11/23 Discharge Disposition: Home or Self Care Attending Physician: Leo Locke DO Referring Physician: Leo Locke DO Allergies, Adverse Reactions, Alerts Substance Reaction Severity Status lisinopril Dry cough Moderate Active Lipitor Unknown Active AmLODIPine Besylate Unknown Active Assessment and Plan Future Appointments Future Scheduled Tests Laboratory* Comprehensive Metabolic Panel 10/11/23 * Comprehensive Metabolic Panel 02/08/23 * Hgb A1c 10/11/23 * Hgb A1c 02/08/23 Functional Status 04/11/23 Other exposure to Infectious Disease Non e [...] instructions, # 6 EA, 3 Refill(s), Pharmacy: [facility] [employer] Start Date: 01/09/23 Status: Ordered High Potency [...] Daily, # 90 tab, 3 Refill(s), Pharmacy: [facility] Start Date: 01/19/23 Stop Date: 01/14/24 Status: Ordered metFORMIN 500 mg oral tablet 500 mg = 1 tab, Oral, Daily, # 90 tab, 3 Refill(s), Pharmacy: [facility] Start Date: 01/19/23 Stop Date: 01/14/24 Status: Ordered Ozempic 8 mg/3 mL (2 mg dose) subcutaneous solution 2 mg =, Subcutaneous, every week, in the abdomen, thigh, or upper arm, # 3 mL, 1 Refill(s), Pharmacy: [facility] Start Date: 04/12/23 Status: Ordered Ventolin HFA 90 mcg/inh inhalation aerosol 180 mcg 2 puffs, Inhale, every 4 hr, PRN as needed for wheezing, # 18 g, 4 Refill(s), Pharmacy: [facility] Start Date: 04/11/23 Status: Ordered verapamil 180 mg/12 hours oral tablet, extended release 180 mg = 1 tab, Oral, every 12 hr, # 180 tab, 3 Refill(s), Pharmacy: [facility] Start Date: 01/19/23 Stop [...] Completed Surgery 5 Completed 1calculi 2Dr. [facility]up [facility] 3skin tag removal 4wart removal left hand finger as a teenager 5deviated septum 2007 Vital Signs Most recent to oldest [Reference Range]: 1 Peripheral Pulse Rate [60-100 bpm] 94 bp m (04/11/23 1:39 PM) Respiratory Rate [12-24 br/min] 16 br/mi n (04/11/23 1:39 PM) Blood Pressure [90-140/60-90 mmHg] 158/1 08mmHg *HI* (04/11/23 1:39 PM) Weight 136.8 kg (04/11/23 1:39 PM) Weight Measured (lbs) 301.592 lb (04/11/23 1:39 PM) Coleman Body Weight Calculated 74.539 kg (04/11/23 1:39 PM) Height 179.5 cm (04/11/23 1:39 PM) Height/Length Measured (inches) 70.67 in ch (04/11/23 1:39 PM) BSA Measured 2.61 m2 (04/11/23 1:39 PM) Body Mass Index 42.46 kg/m2 (04/11/23 1:39 PM) Social History Social History Type Response Tobacco Former tobacco user Tobacco Use:. 1 Sex 1ECW states quit 2002 Hospital Discharge Instructions Follow Up Care 10/11/2022 14:33:28 With:Leo Locke DO Address: [address] [place] [phone] When:6 Months Physician Outpatient Note * Leo Locke DO: PERFORM Event Display: Office Clinic Note Physician Authored Date: [id number] ANDREW ALVARADO :1960 Age:62 years Sex:Male Visit Date:04/11/2023 Primary Care Physician: Leo Locke DO Chief Complaint NCp requesting refill for Ozempi.... ??? Did not take meds today... History of Present Illness Patient is a 62-year-old male who comes in today for follow-up. ??He says overall things are going well. Endocrine: Taking his medication as prescribed. ??He says his sugars??are better than they were last time.?? He did get his labs done, but we do not have??results back yet. Cardiovascular: Taking his medication??as prescribed, but did not take his blood pressure medications this morning. ??Denies any chest pain or shortness of breath or wheezing. Pulmonary: Taking his inhalers as prescribed. ??Needs a refill on his albuterol. Review of Systems See HPI otherwise negative. Physical Exam Vitals & Measurements HR:??94??(Peripheral)?? RR:??16?? BP:??158/108?? SpO2:??97%?? HT:??179.5??cm?? WT:??136.8??kg?? BMI:??42.46?? BSA:??2.61?? General: Alert and oriented, well nourished,?No??acute distress Lungs: Clear to auscultation and percussion,?Non-labored?? respiration Heart:?Normal? rate,?Regular??rhythm,?No??murmur,?No??gallop,?No??edema Abdomen: Soft, non-tender, non-distended,?Normal? bowel sounds,?No??masses Musculoskeletal:?Normal? range of motion and strength,?No??tenderness,?No??swelling Assessment/Plan 1.??Type 2 diabetes mellitus??E11.9 We will await the A1c results. ??We will continue current regimen for now. ??We will recheck labs prior to next visit. Ordered: Comprehensive Metabolic Panel, Blood, Routine, 04/11/23 13:21:00 EDT, by Apolonia MORELAND, Lab Collect, Diabetes Comprehensive Metabolic Panel, Blood, Routine, *Est. 10/11/23 +/- 28 days, Once, Lab Collect, Type 2 diabetes mellitus Essential hypertension, Order for future visit Hgb A1c, Blood, Routine, *Est. 10/11/23 +/- 28 days, Once, Lab Collect, Type 2 diabetes mellitus, Order for future visit Hgb A1c, Blood, Routine, 04/11/23 13:21:00 EDT, by Apolonia MORELAND, Lab Collect, Diabetes ?? 2.??Essential hypertension??I10 Blood pressure is elevated. ??Did not take his medications this morning. ??Encouraged him to??be more consistent with his medications. Ordered: Comprehensive Metabolic Panel, Blood, Routine, *Est. 10/11/23 +/- 28 days, Once, Lab Collect, Type 2 diabetes mellitus Essential hypertension, Order for future visit ?? 3.??Chronic obstructive pulmonary disease, unspecified??J44.9 Breathing appears to be at baseline. ??We will continue current regimen. ?? Orders: Ventolin HFA 90 mcg/inh inhalation aerosol, 180 mcg 2 puffs, Inhale, every 4 hr, PRN as needed for wheezing, # 18 g, 4 Refill(s), Pharmacy: [facility] Future Orders Comprehensive Metabolic Panel, Blood, Routine, *Est. 10/11/23 +/- 28 days, Once, Lab Collect, Type 2 diabetes mellitus Essential hypertension, Order for future visit Hgb A1c, Blood, Routine, *Est. 10/11/23 +/- 28 days, Once, Lab Collect, Type 2 diabetes mellitus, Order for future visit Follow Up Instructions With When Contact Information Leo Locke DO Within 6 Months [address] [place] [address] Additional Instructions: Problem List/Past Medical [...] 1 mg= 1 tab, Oral, BID, PRN Freestyle Kaylee 14 day sensor, See instructions, 3 refills High Potency Vitamin D3 125 mcg (5000 intl units) oral capsule, 125 mcg= 1 cap, Oral, Daily ketoconazole 2% topical cream, 1 jorje, Topical, Daily losartan 25 mg oral tablet, 25 mg= 1 tab, Oral, Daily, 3 refills metFORMIN 500 mg oral tablet, 500 mg= 1 tab, Oral, Daily, 3 refills semaglutide 4 mg/3 mL (1 mg [...] Lives with Alone.- Comments: 1 dog .. [place].. Tobacco Former tobacco user Tobacco Use:.- Comments: [facility] states quit 2002 Family History [...] Recorded Comments : ASHUTOSH Electronically Signed on 04/11/23 02:20 PM Leo Locke DO Patient Care team information Care Team Personnel Name: Leo Locke DO Position: Physician Member Role: Primary Care Physician Address: Address: [address] [place] [id number]
--- OUTSIDE RECORDS SUMMARY | 2024-06-18 14:55 | XMS_ITS | Encounter Summary ---
Author Organization [facility] Address [facility] [place] [address] Care Team Providers Care Billboard Erector Name Role Phone Leo Alegre DO Primary Care Provider +1- [phone] Encounter Details Date Type Department Care Team (Late st Contact Info) Description 02/12/2024 1:40 PM EDT Office [place] [phone] Siva Harrison MD [facility] [place] [address] Chronic obstructive pulmonary disease, unspecified COPD type; [...] drink = 0.6 oz pur e alcohol) [facility] Utilities Answer Date Recorded In the past 12 months has [employer] electric, gas, oil, or water company threatened [...] place to sleep or slept in a skilled nursing (including now)? No 12/13/2023 DH IPV Inpatient [...] Sign Reading Time Taken Comments Blood Pressure 122/72 02/12/2024 1:40 PM EDT Pulse 78 02/12/2024 1:40 PM EDT Temperature 36.3 ??C (97.3 ??F) 02/12/2024 1:40 PM ED T Respiratory Rate 20 02/12/2024 1:40 PM EDT Oxygen Saturation 96% 02/12/2024 1:40 PM EDT Inhaled Oxygen Concentration - - Weight 145.6 kg (321 lb) 02/12/2024 1:40 PM EDT Height 180.3 cm (5' 10.98) 02/12/2024 1:40 PM E DT Body Mass Index 44.8 02/12/2024 1:40 PM EDT documented in this encounter Progress Notes * Siva Harrison MD - 02/12/2024 1:40 PM EDT Images from the original note were not included. [facility] Section of Pulmonary and Critical Care Medicine Outpatient Consultation Martín Mitchell is a 63 y.o. male who presents for follow-up of COPD. HPI: Patient was last seen on 09/14/2023. He was admitted 12/12 with an IL and underwent PCI to left circumflex. He has had 3 episodes of acute onset SOB first thing in the morning. The last episode lasted about 2 hours and eventually resolved with albuterol. He denies any coughing or wheezing with these episodes. He continues to complain of dyspnea walking level ground. He uses albuterol 2-3 times per week. He uses his BIPAP every night. Past Medical History: Diagnosis Date Bipolar 1 disorder Diabetes HTN (hypertension) PATRICIA treated with BiPAP Past Surgical History: Procedure Laterality Date SINUS SURGERY TONSILLECTOMY Family History Problem Relation Age of Onset Respiratory Disease Neg Hx Social History Tobacco Use Smoking status: Former Packs/day: 2.75 Years: 30.00 Additional pack years: 0.00 Total pack years: 82.50 Types: Cigarettes Quit date: 2002 Years since quittin.2 Smokeless tobacco: Never Vaping Use Vaping Use: Never used Substance Use Topics Alcohol use: Not Currently Drug use: Yes Types: Marijuana Social History 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, 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 Current Outpatient Medications: Gvoke HypoPen 2-Pack 0.5 mg/0.1 mL Auto-Injector, , Disp: , Rfl: insulin lispro (HumaLOG) 100 unit/mL Insulin Pen, 60 units twice a day, Disp: , Rfl: Mounjaro 5 mg/0.5 mL Pen Injector, Next dose will be 7.5 mg, Disp: , Rfl: umeclidinium-vilanteroL (Anoro Ellipta) 62.5-25 mcg/actuation Disk with Device, Inhale 1 puff into the lungs daily., Disp: 3 each, Rfl: 3 losartan (Cozaar) 50 mg tablet, Take 1 tablet by mouth daily for 90 days., Disp: 30 tablet, Rfl: 2 rosuvastatin (Crestor) 40 mg tablet, Take 1 tablet by mouth every evening for 90 days., Disp: 30 tablet, Rfl: 2 metoprolol succinate XL (Toprol-XL) 100 mg ER 24 hr tablet, Take 1 tablet by mouth daily for 90 days., Disp: 30 tablet, Rfl: 2 aspirin EC 81 mg EC (DR) tablet, Take 1 tablet by mouth daily for 90 days., Disp: 30 tablet, Rfl: 2 clopidogreL (Plavix) 75 mg tablet, Take 1 tablet by mouth daily for 90 days., Disp: 30 tablet, Rfl:2 spironolactone (Aldactone) 25 mg tablet, Take 1 tablet by mouth daily for 90 days., Disp: 30 tablet, Rfl: 2 nitroGLYcerin (Nitrostat) 0.4 mg sublingual tablet, Place 1 tablet under the tongue every 5 minutesas needed for Chest pain for up to 20 doses., Disp: 20 tablet, Rfl: 0 furosemide (Lasix) 40 mg tablet, Take 1 tablet by mouth daily for 90 days., Disp: 30 tablet, Rfl: 2 insulin needles, disposable, 32 gauge x 5/32 Needle, Inject 1 each subcutaneously nightly. Indications: diabetes, Disp: 100 each, Rfl: 11 metFORMIN XR (Glucophage XR) 500 mg ER 24 hr tablet, Take 2 tablets by mouth daily for 90 days., Disp: 60 tablet, Rfl: 2 NovoLOG Flexpen U-100 Insulin 100 unit/mL (3 mL) Insulin Pen, Inject 10-20 Units subcutaneously 3 times daily (with meals). Take 10 units with small meals, 15 units with medium meals, and 20 units with large meals., Disp: 15 mL, Rfl: 0 ketoconazole (NIZORAL) 2 % Cream, as needed., Disp: , Rfl: Amlodipine besylate, Atorvastatin, and Lisinopril Review of Systems Constitutional: Negative. Respiratory: Positive for shortness of breath and wheezing. Negative for cough. Cardiovascular: Negative. Gastrointestinal: Negative. Neurological: Negative. Endo/Heme/Allergies: Negative. BP 122/72 Pulse 78 Temp 36.3 ??C (97.3 ??F) (Temporal) Resp 20 Ht 180.3 cm (5' 10.98) Wt(!) 145.6 kg (321 lb) SpO2 96% BMI 44.80 kg/m?? Vital signs reviewed General: Alert and oriented, in no apparent distress Head: Normocephalic, without obvious abnormality, atraumatic Eyes: Conjunctiva clear Neck: Supple, trachea midline, no adenopathy Lungs: Clear to auscultation bilaterally, respirations unlabored Heart: Regular rate and rhythm, S1 and S2 normal, no murmur, rub or gallop Abdomen: Soft, non-tender, non-distended Extremities: no clubbing, cyanosis or edema Skin: no rashes or ulcers Neurologic: no focal deficits Labs & Studies: PFTs (1st column %, 2nd column z-scores): 07/19/2023 FVC 66 FEV1 60 FEV1/FVC 68 WINDOW SHADE CUTTER [employer] MOUNTER + TLC 83 RV 98 DLCO 55 DLCO/VA 98 6MWT (ft) Low sat O2 req. pH pCO2 pO2 LDCT 02/12/24: No suspicious nodules Assessment & Plan: COPD: Patient with GOLD 2B COPD. I will continue Anoro. He is having episodic SOB in the morning upon waking. He has an inhaler but not albuterol solution. I will prescribe albuterol solution to try when he experiences these episodes. Nicotine Addiction: Patient quit smoking initially in 2002 then relapsed for a brief period of timeand quit again in 2015. Based on 2015 as a quit date he underwent LDCT today. This was independently reviewed by me and reveals no suspicious nodules. A total of 40 minutes was spent performing this encounter on this date of service. My evaluation ofthis patient, including a review of the chart, history, laboratory, and imaging finding, discussionwith patient, placing orders and documenting the plan as detailed above. I provided medical care services that are part of the ongoing care related to the patient's serious/complex condition. Follow-up instructions: Return in about 6 months (around 08/13/2024) for In Person. No orders of the defined types were placed in this encounter. documented in this encounter Plan of Treatment Upcoming Encounters Date Type Department Care Team (Late st Contact Info) Description 07/02/2024 3:00 PM EDT Office Visit [place] [address] Leo Flor MD [facility] ENDOCRINOLOGY [place] [id number] 08/12/2024 3:40 PM EDT Office [place] [phone] Siva Harrison MD [facility] [place] [address] 09/18/2024 1:00 PM EST Office Visit Cardiology at [address] [phone] Jj Davis MD [facility] [place] [address] documented as of this encounter Visit Diagnoses Diagnosis Chronic obstructive pulmonary disease, unspecified COPD type Cigarette nicotine dependence in remission Tobacco use disorder documented in this encounter Care Teams Billboard Erector Relationship Specialty Start Date End Date Leo Alegre DO [address] [place] [address] PCP - General Family Medicine 03/03/21 documented as of this encounter
--- OUTSIDE RECORDS SUMMARY | 2024-06-18 14:56 | XMS_ITS | Encounter Summary ---
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; Cigarette nicotine dependence in remission Social History Tobacco Use Types Packs/Day Years Used Date Smoking Tobacco: Former Cigarettes 2.8 30 1 - 2002 Smokeless Tobacco: Never Alcohol Use Standard Drinks/Week Comments Not Currently 0 (1 standard drink = 0.6 oz pur e alcohol) [facility] Utilities Answer Date Recorded In the past 12 months has e [employer], gas, oil, or water [employer] threatened to shut off services in your [...] PM EDT Office Visit Endocrinology at [address] Leo Flor MD [facility] [place] [address] 08/12/2024 3:40 PM EDT Office Visit Pulmonology at [place] [phone] Siva Harrison MD [facility] [place] [address] 09/18/2024 1:00 PM EST Office Visit Cardiology at [place] [phone] Jj Davis MD [facility] [place] [address] documented as of this encounter Visit Diagnoses Diagnosis Chronic obstructive pulmonary disease, unspecified COPD type Cigarette nicotine dependence in remission Tobacco use disorder documented in this encounter Care Teams Meat And Poultry Inspector Relationship Specialty Start Date End Date Leo Alegre DO [address] [place] [phone] PCP - General Family Medicine 03/03/21 documented as of this encounter
--- OUTSIDE RECORDS SUMMARY | 2024-06-18 14:56 | XMS_ITS | Encounter Summary ---
Author Organization [facility] [place] [address] Care Team Providers Care Engagement Manager Name Role Phone Leo Alegre DO Primary Care Provider +1- [phone] Encounter Details Date Type Department Care Team (Late st Contact Info) Description 12/12/2023 Orders Only Cardiology [facility] [place] [phone] Unknown None Social History Tobacco Use Types Packs/Day Years Used Date Smoking Tobacco: Former Cigarettes 2.8 30 1 973 - 2003 Smokeless Tobacco: Never Alcohol Use Standard Drinks/Week Comments Not Currently 0 (1 standard drink = 0.6 oz pur e alcohol) [facility] Utilities Answer Date Recorded In [...] place to sleep or slept in a nursing home (including now)? No 12/13/2023 IPV Inpatient [...] 3:00 PM EDT Office [place] [address] [facility] [place] [address] 08/12/2024 3:40 PM EDT [place] [address] [facility] [address] 09/18/2024 1:00 PM EST Office Visit Cardiology at [place] [phone] [facility] [place] [address] documented as of this encounter Procedures Procedure Name Priority Date/Time Associated Diagnosis Comments ECHOCARDIOGRAM TRANSTHORACIC Routine 12/12/2023 8:17 PM EST documented in this encounter Results * Echocardiogram Transthoracic (12/12/2023 8:17 PM EST) Anatomical Region Laterality Modality Cardiac Other 12/12/2023 8:17 PM EST Narrative 12/13/2023 8:33 AM EST [address] [place] [address] ? Echocardiogram Report Name: MARTÍN MITCHELL ?Study Date: 12/12/2023 08:17 PMBP: 130/78 mmHg ? Patient Location: [facility] ? HR: 80 : 1960 ? Height: 180 cm Age: 63 yrs ? Weight: 136 kg Gender: Male ?BSA: 2.5 m2 Performed By: Nikhil Pinto Reason For Study: STEMI History: STEMI Interpreting Fellow: Nikhil Pinto. Exam Location: [facility]. Interpretation Summary -Limited echocardiogram. -The left ventricle is of normal size and wall thickness. The left ventricular systolic function is mildly reduced with a visually estimated ejection fraction of 45%. There are lateral and inferoir segmental wall motion abnormalities. -The right ventricle is normal in size and systolic function. -There is no significant valve disease. -No prior echocardiogram for comparison. Procedure Limited - [id number]. Satisfactory quality. There is normal sinus rhythm. Left Ventricle Left ventricle is of normal size. Wall thickness is normal. Left ventricular systolic function is mildly reduced. Left ventricular ejection fraction is estimated visually at 45%. There are segmental wall motion abnormalities. Right Ventricle The right ventricle is of normal size. Right ventricular function is probably normal. Left Atrium The left atrium is normal. Right Atrium The right atrium is normal. Aortic Valve The aortic valve is not well visualized. The aortic valve is mildly thickened. The aortic valve is mildly calcified. There is no aortic stenosis. There is no aortic regurgitation. Mitral Valve The mitral valve is structurally normal. There is trace mitral regurgitation. Tricuspid Valve The tricuspid valve is structurally normal. There is trace tricuspid regurgitation. Pulmonic Valve The pulmonic valve is not well visualized. There is trace pulmonic valve regurgitation. Great Arteries The aortic root is not well visualized. Venous Inferior vena cava is dilated. Inferior vena cava collapse less than 50% with respiration. Pericardium/Pleural The pericardium appears normal. There is no pericardial effusion. Hemodynamics Pulmonary artery hypertension could not be assessed due to inadequate tricuspid regurgitation jet. Left ventricular filling pressure is normal. ? 2D Measurements ? Volumes ?IVSd: 1.0 cm ? LAV(MOD-bp) Indexed: ?LVIDd: 4.9 cm ?LVPWd: 1.1 cm ?23.8 ml/m2 ? RA A4Cs_phl: 17.1 cm2 ?LV mass(C)d: 190.3 grams ?LV mass(C)dI: 76.1 grams/m2 ?TAPSE_phl: 3.0 cm Doppler LV V1 VTI: 12.0 cm Ao V2 VTI: 15.4 cm Ao Max: 132.4 cm/sec Ao valve max: 7.0 mmHg Ao valve mean: 3.5 mmHg MV E max mina: 104.8 cm/sec Lat Peak E' Mina: 7.3 cm/sec E/ e' (lat): 14.4 Med Peak E' Mina: 9.4 cm/sec E/e' (med): 11.2 E/e' Average: 12.8 Dimensionless index Aov: 0.78 I ?WMSI = 1.63 ? % Normal = 56 ?Segments ??Size X - Cannot ?2 - ?4 - ?1-2 ? small Interpret ?1 - Normal ?? Hypokinetic 3 - Akinetic Dyskinetic ?? 3-5 ? moderate 5 - ? 6-14 ?large Aneurysmal ?15-16 ?? diffuse Procedure Note Mani Mcguire MD - 12/13/2023 [address] [place] [id number] Echocardiogram Report Name: MARTÍN MITCHELL Study Date: 408:17 PMBP: 130/78 mmHg Patient [facility]: [facility] HR: 80 : 1960 Height: 180 cm Age: 63 yrs Weight: 136 kg Gender: Male BSA: 2.5 m2 Performed By: Nikhil Pinto Reason For Study: STEMI History: STEMI Interpreting Fellow: Nikhil Pinto. Exam Location: [facility]. Interpretation Summary -Limited echocardiogram. -The left ventricle is of normal size and wall thickness. The leftventricular systolic function is mildly reduced with a visually estimated ejectionfraction of 45%. There are lateral and inferoir segmental wall motion abnormalities. -The right ventricle is normal in size and systolic function. -There is no significant valve disease. -No prior echocardiogram for comparison. Procedure Limited - [id number]. Satisfactory quality. There is normal sinus rhythm. Left Ventricle Left ventricle is of normal size. Wall thickness is normal. Leftventricular systolic function is mildly reduced. Left ventricular ejection fractionis estimated visually at 45%. There are segmental wall motionabnormalities. Right Ventricle The right ventricle is of normal size. Right ventricular function isprobably normal. Left Atrium The left atrium is normal. Right Atrium The right atrium is normal. Aortic Valve The aortic valve is not well visualized. The aortic valve is mildlythickened. The aortic valve is mildly calcified. There is no aortic stenosis. There is noaortic regurgitation. Mitral Valve The mitral valve is structurally normal. There is trace mitralregurgitation. Tricuspid Valve The tricuspid valve is structurally normal. There is trace tricuspid regurgitation. Pulmonic Valve The pulmonic valve is not well visualized. There is trace pulmonic valve regurgitation. Great Arteries The aortic root is not well visualized. Venous Inferior vena cava is dilated. Inferior vena cava collapse less than 50%with respiration. Pericardium/Pleural The pericardium appears normal. There is no pericardial effusion. Hemodynamics Pulmonary artery hypertension could not be assessed due to inadequatetricuspid regurgitation jet. Left ventricular filling pressure is normal. 2D Measurements Volumes IVSd: 1.0 cm LAV(MOD-bp)Indexed: LVIDd: 4.9 cm LVPWd: 1.1 cm 23.8 ml/m2 RA A4Cs_phl: 17.1cm2 LV mass(C)d: 190.3 grams LV mass(C)dI: 76.1 grams/m2 TAPSE_phl: 3.0 cm Doppler LV V1 VTI: 12.0 cm Ao V2 VTI: 15.4 cm Ao Max: 132.4 cm/sec Ao valve max: 7.0 mmHg Ao valve mean: 3.5 mmHg MV E max mina: 104.8 cm/sec Lat Peak E' Mina: 7.3 cm/sec E/ e' (lat): 14.4 Med Peak E' Mina: 9.4 cm/sec E/e' (med): 11.2 E/e' Average: 12.8 Dimensionless index Aov: 0.78 I WMSI = 1.63 % Normal = 56 SegmentsSize X - Cannot 2 - 4 - 1-2small Interpret 1 - Normal Hypokinetic 3 - Akinetic Dyskinetic 3-5moderate 5 - 6-14large Aneurysmal 15-16diffuse Unknown ECHO ORDERABLES documented in this encounter Visit Diagnoses Not on filedocumented in this encounter Care Teams Engagement Manager Relationship Specialty Start Date End Date Leo Alegre DO [address] [place] [address] PCP - General Family Medicine 03/03/21 documented as of this encounter
--- OUTSIDE RECORDS SUMMARY | 2024-06-18 14:56 | XMS_ITS | Encounter Summary ---
Author Organization [facility] Address [facility] [place] [address] Care Team Providers Care Automotive Porter Name Role Phone Leo Alegre DO Primary Care Provider +1- [phone] Reason for Referral * Consultation (Routine) - Closed Specialty Diagnoses / Procedures Referred By Contac t Referred To Contact Nutrition Diagnoses Coronary artery disease, unspecified vessel or lesion type, unspecified whether angina present, unspecified whether [place] or transplanted heart NUTRITION Initial MNT Abram Wei MD [facility] [place] [address] [facility] [place] [address] Referral ID Status Reason Start Date Expiration Date V isits Requested Visits Authorized [id number] Closed Continuity of Care 12/16/2023 12/15/2024 1 1 Encounter Details Date Type Department Care Team (Late st Contact Info) Description 12/16/2023 Orders Only Cardiology at [address] [phone] Abram Wei MD [facility] [place] [address] Coronary artery disease, unspecified vessel or lesion type, unspecified whether angina present, unspecified whether [place] or transplanted heart Social History Tobacco Use Types Packs/Day Years Used Date Smoking Tobacco: Former Cigarettes 2.8 30 1 973 - 2002 Smokeless Tobacco: Never Alcohol Use Standard Drinks/Week Comments Not Currently 0 (1 standard drink = 0.6 oz pur e alcohol) [facility] Utilities Answer Date Recorded In [...] a senior living (including now)? No 12/13/2023 IPV Inpatient Questions [...] 3:00 PM EDT Office [place] [address] Leo Flor MD [facility] [place] [address] 08/12/2024 3:40 PM EDT Office [place] [phone] Siva Harrison MD [facility] [place] [address] 09/18/2024 1:00 PM EST Office Visit Cardiology at [address] [phone] Jj Davis MD [facility] [place] [address] Scheduled Referrals Name Type Priority Associated Diagnoses Orde r Schedule Referral to Nutrition Services Outpatient Referral Routine Coronary artery disease, unspecified vessel or lesion type, unspecified whether angina present, unspecified whether [place] or transplanted heart Ordered: 12/16/2023 documented as of this encounter Visit Diagnoses Diagnosis Coronary artery disease, unspecified vessel or lesion type, unspecified whether angina present, unspecified whether [place] or transplanted heart documented in this encounter Care Teams Automotive Porter Relationship Specialty Start Date End Date Leo Alegre DO [address] [place] [address] PCP - General Family Medicine 03/03/21 documented as of this encounter
--- OUTSIDE RECORDS SUMMARY | 2024-06-18 14:56 | XMS_ITS | Encounter Summary ---
Author Organization [facility] Address [facility] [place] [address] Care Team Providers Care Hse Specialist Name Role Phone Leo Alegre DO Primary Care Provider [phone] Reason for Referral * Consultation (Routine) - Closed Specialty Diagnoses / Procedures Referred By Contac t Referred To Contact Endocrinology Diagnoses Type 2 diabetes mellitus with other circulatory complication, without long-term current use of insulin Davy Schwab MD [facility] [place] [address] [facility] [address] [place] [phone] Referral ID Status Reason Start Date Expiration Date V isits Requested Visits Authorized [id number] Closed Consult, Test & Treat 12/16/2023 12/15/2024 1 1 * Consultation (Routine) - Closed Specialty Diagnoses / Procedures Referred By Contac t Referred To Contact Cardiology Diagnoses ST elevation myocardial infarction (STEMI), unspecified artery Ryan Salas MD [facility] [place] [address] [facility] [address] [place] [phone] Referral ID Status Reason Start Date Expiration Date V isits Requested Visits Authorized [id number] Closed Consult, Test & Treat 12/16/2023 12/15/2024 1 1 * Consultation (Routine) - Closed Specialty Diagnoses / Procedures Referred By Angieac t Referred To Contact Cardiology Diagnoses ST elevation myocardial infarction involving left circumflex coronary artery Abram Wei MD [facility] [place] [address] Cardiac Rehab, [facility] [address] [place] [address] [place] [address] Referral ID Status Reason Start Date Expiration Date V isits Requested Visits Authorized [id number] Closed Consult, Test & Treat 12/16/2023 06/13/2024 36 36 Reason for Visit * Auth/Cert (Routine) Specialty Diagnoses / Procedures Referred By Contac t Referred To Contact Diagnoses STEMI (ST elevation myocardial infarction) STEMI Procedures CORONARY ANGIOGRAPHY Sergey Nava MD [facility] [place] [address] [facility] Referral ID Status Reason Start Date Expiration Date Visits Re quested Visits Authorized [id number] 1 1 Encounter Details Date Type Department Care Team (Late st Contact Info) Description 12/12/2023 5:39 PM EST - 12/16/2023 4:49 PM EST Hospital Encounter Heart and Vascular Unit Level 3 [place] [address] Sergey Nava MD [facility] [place] [address] Frances Eisenberg MD [facility] [place] [address] Jon Root MD [facility] [place] [address] Abram Wei MD [facility] [place] [place] [address] ST elevation myocardial infarction involving left circumflex coronary artery; ST elevation myocardial infarction (STEMI), unspecified artery; Type 2 diabetes mellitus with other circulatory complication, without long-term current use of insulin Discharge Disposition: Home Social History Tobacco Use Types Packs/Day Years Used Date Smoking Tobacco: Former Cigarettes 2.8 30 1 973 - 2002 Smokeless Tobacco: Never Alcohol Use Standard Drinks/Week Comments Not Currently 0 (1 standard drink = 0.6 oz pur e alcohol) [facility] Utilities Answer Date Recorded In the past [...] a senior living (including now)? No 12/13/2023 DH IPV Inpatient [...] Sign Reading Time Taken Comments Blood Pressure 125/81 12/16/2023 11:35 AM EST Pulse 93 12/16/2023 11:35 AM EST Temperature 37.1 ??C (98.8 ??F) 12/16/2023 1 1:35 AM EST Respiratory Rate 19 12/16/2023 11:3 5 AM EST Oxygen Saturation 94% 12/16/2023 11: 35 AM EST Inhaled Oxygen Concentration - - Weight 136.7 kg (301 lb 6.4 oz) 12/16/2023 5:02 AM EST Height 180.3 cm (5' 10.98) 12/12/2023 9:[address] Body Mass Index 42.06 12/12/2023 9:46 PM EST documented in this encounter Discharge Summaries * Abram Wei MD - 12/15/2023 6:00 PM EST Images from the original note were not included. Hospital Discharge Summary Patient Name: Martín Alvarado Patient Age: 63 y.o. Birthdate: 1960 Admit date: 12/12/2023 Discharge date and time: 12/16/2023 Attending Physician: Abram Wei MD Code Status: Full Code ID: Martín Alvarado is a 63 y.o. male with PMH notable for HTN, NIDDM2, COPD, BP, obesity, and nephrolithiasis who presented as a transfer from [facility] for inferior STEMI, now s/p PCI to [facility], with course complicated by DKA. Follow-up Recommendations for Providers: - Referral to Cardiology at [facility] [place]. Requires follow-up TTE in 3 months and consideration for intervention on complex multivessel disease. - Please check BMP in 1 week to monitor following initiation of GDMT. Discharged on losartan 50 mg,spironolactone 25 mg, metoprolol succinate 100 mg. Consider initiation of SGLT-2 inhibitor as an outpatient. Already on home GLP-1 agonist. - Titrate diuretics as indicated. Discharged on oral furosemide 40 mg once daily with instructions to take another 40 mg if he gains 2 lbs in 1 day or 5 lbs in 1 week. Weight 301 at time of discharge. - Follow-up insulin and T2DM management. Started on insulin following episode of DKA. Consider adjustment of regimen pending review of CGM data. Discharged on long-acting insulin 50 units bid and meal-associated insulin with instructions to take 10/15/20U depending on size of meal. [facility] endocrinology referral placed at time of discharge. Also referral placed to [facility] whip operator. - Ensure patient remains on DAPT for 12 months. Plavix can be discontinued at 12 months depending on future intervention. Discharge Diagnoses (Hospital Problems) and Secondary Diagnoses (Chronic Problems): Active Hospital Problems Diagnosis STEMI (ST elevation myocardial infarction) Resolved Hospital Problems No resolved problems to display. Procedures: TTE [facility] History of Presentation (per 12/12/2023 Admission H&P): Martín Alvarado is a 63 y.o. male w/ PMH HTN, NIDDM2, COPD, obesity, and nephrolithiasis who presentsas a transfer from [facility] for inferior STEMI. Patient states he was in his normal state of health until around 11 PM last night, when he started having transient episodes of chest pain that woke him up from sleep but resolved on its own. When hewoke up this morning, he was chest pain free. This afternoon, he presented for an outpatient mentalhealth appointment and had recurrence of his chest pain, diaphoresis, and shortness of breath. EKG obtained with inferior LEIDY and anterior ST depressions. Patient remained HDS at the OSH. He was aspirin loaded, plavix loaded, started on a heparin gtt, and received TNK. He was transferred to [facility] for catheterization. Per Dr. Carmen's Op Note: Preliminary findings: Coronary Angiography: Anatomically normal left dominant circulation LMCA: Without angiographic apparent disease LAD: 60% mid vessel disease, 75% distal disease LCx: 100% proximal lesion, 40% proximal OM1 with moderate diffuse disease, 70% proximal OM2 lesion,65% ostial LPDA lesion RCA: Mid 95% lesion (small and non-dominant vessel) Contrast: 124 ccs LVEDP: 31 mmHg Conclusion: - Hemodynamic instability initially requiring pressors (levophed to 15 and epi to 4) with ability to come off all pressors after vessel was opened. - Successful PCI of the proximal LCX (Culprit 100% s/p unsuccessful lytics) with a 4.0 x 22 mm OnyxFrontier DYANA post-dilated with a 4.5 NC balloon. - Complex 3VD which would make complete revascularization by PCI complex. Recommend stabilization and then either medical management or Heart Team Approach for further intervention. - Noted to be likely in DKA in lab with glucose 500s and AG metabolic acidosis, started DKA protocol without fluids with insulin and K+ and discussed with CV[facility] team who is taking over care of the patient for further management. - The patient tolerated the procedure well and was transferred from the cardiac catheterization labin stable condition without apparent complications. Patient was HDS on arrival to the [facility] and off of pressors. On oxygen mask @ 6 L/min. Patient denies recurrent chest pain, lightheadedness/dizziness, palpitations, abdominal pain, or nausea. Patient denies any prior cardiac history. Unclear family history (patient was adopted). He denies alcohol use or current tobacco use (former smoker from age [age], up to 3 ppd). Hospital Course: Martín Alvarado was admitted to the Cardiology Service on 12/12/2023. The following acute and chronic medical issues were identified during this phase of their hospitalization, and managed as summarizedbelow by problem: #STEMI s/p PCI to LCX #Complex multivessel disease #New onset, acute heart failure with reduced ejection fraction #HTN #Metabolic syndrome #Cardiogenic shock, resolved Presented with inferior STEMI. Patient underwent revascularization of 100% stenosed LCX with immediate improvement in hemodynamics. Started on DAPT with aspirin and plavix. Optimized GDMT during admission with beta-jeimy, MRA, and ARB for newly mildly reduced EF 41%. Required diuresis for elevated filling pressures with new WMA and newly reduced LV function on post-cath TTE. Further PCI intervention deferred to a later time. #DKA #T2DM Developed DKA following cardiac cath. Difficult to wean off insulin drip. Had high insulin requirements. Eventually, successfully transitioned to SC insulin. Discharged on long- and short-acting insulin. #Hypoxia without respiratory failure, resolved #COPD Developed some respiratory distress requiring 2L oxygen at time in setting of presumed volume overload. Given IV lasix. Managed with formulary equivalent of Umeclidinium-vilanterol 62.5-25mcg. Vital Signs on Day of Discharge Last value Range last 24 hrs Temperature Temp: 37.1 ??C (98.8 ??F) Temp: [36.4 ??C (97.5 ??F)-37.1 ??C (98.8 ??F)] Heart Rate Heart Rate: 93 Heart Rate: [85-99] Blood Pressure BP: 125/81 BP: (114-136)/(66-102) Respiratory Rate Resp: 19 Resp: [15-20] SpO2 SpO2: 94 % SpO2: [92 %-98 %] Important Studies and Lab Data: Recent Labs 12/16/23 0401 12/15/23 0403 12/13/23 0156 WBC 14.6* 18.3* 16.2* HGB 13.9 15.4 14.2 PLATELET 256 253 272 Recent Labs 12/16/23 0401 12/15/23 1253 12/15/23 0909 12/15/23 0403 12/14/23 0009 12/13/23 1956 12/12/23 2214 12/12/231999 NA 133* 132* 132* 132* < > 133* < > 133* K 3.4* 3.6 3.4* 3.5 < > 3.5 < > 7.4* CO2 25 24 24 < > 19* < > 16* CL 97* 94* 94* 94* < > 99 < > 99 BUN 26* 24* 26* 26* < > 31* < > 23* CREATININE 0.85 0.84 0.78* 0.88 < > 1.03 < > 1.48 CALCIUM 8.9 9.1 9.1 9.2 < > 9.0 < > 8.1* MAGNESIUM -- -- -- 0.89 -- 0.90 -- 0.66* PHOS -- -- -- -- -- 4.1 -- 4.8* ANIONGAP 11 13 14 14 < > 15 < > 18* < > = values in this interval not displayed. Recent Labs 12/13/23 0034 PROT 6.4 ALBUMIN 3.9 BILITOT 1.3 BILIDIR 0.2 AST 671* ALT 109* ALKPHOS 55 Recent Labs 12/13/23 0034 TSH 0.32 HA1C 10.0* C peptide 1.4 Anti-CCP <8.0 Microbiology: None Pertinent radiology/diagnostic studies: Results for orders placed or performed during the hospital encounter of 12/12/23 XR Chest One View (Exam End: 12/13/2023 9:28 AM) Impression Mild vascular congestion without focal airspace disease. Thank you for letting us participate in the care of this patient. If you are a health care provider and have any questions regarding this report, please contact the number below. For patients who have questions please contact the health care process manager that requested your imaging first. : -Left ventricular systolic function is mildly reduced. The left ventricular ejection fraction is 41% by Wells's biplane. There is akinesis of the inferolateral and anterolateral segments. -The right ventricle is of normal size. Right ventricular systolic function is normal. Pulmonary artery hypertension could not be assessed due to inadequate tricuspid regurgitation jet. -There is no significant valve disease. -Other than a akbmn-xq-hwbi study performed on yesterday's date with similar findings, no comparison study is available. See report for additional findings. LHC: * Three vessel coronary artery disease (LAD, LCX and RCA) * Elevated left ventricular end diastolic pressure * Successful stent insertion of the proximal LCX lesion * See Dual Antiplatelet (DAPT) Recommendations above * PCI for complete revascularization is likely to be technically challenging, consider medical management vs heart team approach. Discharge Conditions/Prognosis: Upon discharge the pt is hemodynamically stable, fully ambulatory without requiring supplemental oxygen, afebrile and pain free. Discharge to: Home without services Discharge Medications: Your Medications New Medications Dose Details aspirin EC 81 mg EC (DR) tablet Take 1 tablet by mouth daily for 90 days. 81 mg Quantity: 30 tablet Refills: 2 clopidogreL 75 mg tablet Commonly known as: Plavix Take 1 tablet by mouth daily for 90 days. 75 mg Quantity: 30 tablet Refills: 2 furosemide 40 mg tablet Commonly known as: Lasix Take 1 tablet by mouth daily for 90 days. 40 mg Quantity: 30 tablet Refills: 2 Insulin Basaglar KwikPen U-100 100 unit/mL (3 mL) pen Inject 50 Units subcutaneously 2 times daily for 40 days. Indications: type 2 diabetes mellitus Generic drug: insulin glargine 50 Units Quantity: 40 mL Refills: 0 insulin needles (disposable) 32 gauge x 5/32 Needle Inject 1 each subcutaneously nightly. Indications: diabetes 1 each Quantity: 100 each Refills: 11 metFORMIN XR 500 mg ER 24 hr tablet Commonly known as: Glucophage XR Take 2 tablets by mouth daily for 90 days. Replaces: metFORMIN 500 mg tablet 1,000 mg Quantity: 60 tablet Refills: 2 metoprolol succinate XL 100 mg ER 24 hr tablet Commonly known as: Toprol-XL Take 1 tablet by mouth daily for 90 days. 100 mg Quantity: 30 tablet Refills: 2 nitroGLYcerin 0.4 mg sublingual tablet Commonly known as: Nitrostat Place 1 tablet under the tongue every 5 minutes as needed for Chest pain for up to 20 doses. 0.4 mg Quantity: 20 tablet Refills: 0 NovoLOG Flexpen U-100 Insulin 100 unit/mL (3 mL) Insulin Pen Inject 10-20 Units subcutaneously 3 times daily (with meals). Take 10 units with small meals, 15 units with medium meals, and 20 units with large meals. Generic drug: insulin aspart U-100 10-20 Units Quantity: 15 mL Refills: 0 rosuvastatin 40 mg tablet Commonly known as: Crestor Take 1 tablet by mouth every evening for 90 days. 40 mg Quantity: 30 tablet Refills: 2 spironolactone 25 mg tablet Commonly known as: Aldactone Take 1 tablet by mouth daily for 90 days. 25 mg Quantity: 30 tablet Refills: 2 Continued medications with new dosing Dose Details losartan 50 mg tablet Commonly known as: Cozaar Take 1 tablet by mouth daily for 90 days. What changed: medication strength how much to take 50 mg Quantity: 30 tablet Refills: 2 Continued medications, unchanged Dose Details ketoconazole 2 % Cream Commonly known as: Nizoral as needed. Refills: 0 Ozempic 0.25 mg or 0.5 mg(2 mg/1.5 mL) Pen Injector Inject 1 mg subcutaneously once a week. Generic drug: semaglutide 1 mg Refills: 0 umeclidinium-vilanteroL 62.5-25 mcg/actuation Disk with Device Commonly known as: Anoro Ellipta Inhale 1 puff into the lungs daily. 1 puff Quantity: 1 each Refills: 3 STOPPED Medications LORazepam 1 mg tablet Commonly known as: Ativan melatonin 3 mg tablet metFORMIN 500 mg tablet Commonly known as: Glucophage Replaced by: metFORMIN XR 500 mg ER 24 hr tablet Ventolin HFA 90 mcg/actuation HFA Aerosol Inhaler Generic drug: albuteroL verapamiL SR 180 mg ER (SR) tablet Commonly known as: Calan-SR Vraylar 3 mg capsule Generic drug: cariprazine Instructions Given to Patient at Discharge: Patient Instructions Instructions on Discharge to Home Why you were hospitalized - You were admitted to [facility] for a STEMI (heart attack) and required a stent be placed in one of your coronary arteries. You had smaller blockages in other arteries which will require ongoing monitoring, and possibly intervention. You were also treated for critically high blood glucose levels (diabetic ketoacidosis, or DKA) requiring IV insulin. We have started you on a number of medications that are important for keeping your stent open, and helping your heart to heal. Please review the list below carefully, and reach out to your PCP with any questions. We also started you on insulin, to help maintain good blood glucose control. We have placed a referral to see a [facility] Tapper, as well as a whip operator, and to start Cardiac Rehabilitation. It is also important to see your PCP after being hospitalized. Call your doctor or seek medical attention if you develop the following - Chest pain, shortness of breath, feeling dizzy upon standing, passing out, diarrhea, constipation lasting longer than 2 days,fevers (temperature over 100.3F), chills, abdominal pain, vomiting, difficulty or discomfort when urinating, bloody or black bowel movements, or any other acute or concerning symptom. Activity level - No restrictions Diet - No change in previous diet Driving - As before hospitalization Shower/Bath - Permitted Wound Care - None Home Oxygen therapy - Not necessary New medications: To reduce risk of further heart attacks and prevent your new stent from clotting: - start aspirin 81 mg daily - start plavix 75 mg daily To improve the functioning of your heart and your general cardiovascular health: - start losartan 50 mg daily - start spironolactone 25 mg daily - start metoprolol succinate 100 mg daily - start furosemide 40 mg (diuretic), see further instructions below - start rosuvastatin 40 mg daily To improve control of your underlying diabetes: - start metformin extended release 1000 mg daily - resume your home ozempic weekly injections - start insulin long-acting basaglar 50 units twice daily - take meal-associated short-acting insulin 10 units with small meals, 15 units with medium-sized meals, and 20 units with large meals; alternatively, you can begin to count carbs as instructed by the Diabetes Toolkit book you were given. You can administer 1 unit of short-acting insulin for every 5 carbs if you decide to count carbs. As needed medications: - take sublingual nitroglycerin tablets as needed for chest pain Heart Failure (HF) Action plan Your Diagnosis is: HF with Reduced Ejection Fraction (Systolic HF- trouble with the heart squeezingand emptying) Mildly reduced ejection fraction Your Weight on day of discharge is: 301 pounds Here are the CONNELLY THINGS you can do to help manage your heart failure: Watch for signs that you???re getting worse, such as worsening leg swelling or shortness of breath.Weighing yourself every day can catch worsening heart failure (holding on to fluid) before you get worsening symptoms. Weigh yourself at the same time every day, using the same scale in the same amount of clothing. The best time is in the morning after going to the bathroom and before eating or drinking. Keep a record of your daily weight, along with any change in diuretic dose. If you gain more than 2 pounds in a day or 5 pounds in a week, or if you notice more leg swelling than usual, more coughing, or mildly worse shortness of breath, take an extra furosemide 40 mg tabletevery day until your weight returns to the baseline weight on day of discharge. Call now for an urgent appointment if: you have any trouble breathing at rest, wake up at night short of breath, feel dizzy or very tired, or have other bothersome new or worsening symptoms. Call 911 for an ambulance if: you have severe shortness of breath, chest pain or pressure, coughingup foamy pink mucous, have a fainting spell or feel confused. Know your triggers and learn to avoid them. Triggers are things that can make heart failure worse, like eating salty foods or taking NSAIDs (ibuprofen, motrin, aleve). Sodium (salt) is usually limited to under 2000 mg/day- which is less than a teaspoon. Avoid table salt and processed foods, read nutrition labels, and be careful when you eat out. Exercise at least 5 days a week. Exercise makes your heart stronger and can reduce symptoms. Walking is a great form of exercise. Moderate exercise is usually safe, but talk with your doctor before starting a strenuous exercise program. Avoid more than one drink/day of alcohol. Diabetes action plan - Measure your blood sugar every morning when you wake up and before you eat. Your goal for fastingblood sugar levels is 140. If your sugar is less than 100, decrease your long-acting insulin by 5 units to 45 units twice daily. - If your morning fasting sugar level is greater than 200, increase your long- acting insulin to 55 units twice daily. - Take short-acting insulin with meals. 10 units with small meals, 15 units with medium-sized meals, and 20 units with large meals. - Overall the goal is keep your sugar between 140-180 throughout the day. Make sure to keep track of your sugars with the Kaylee. Follow-up with your PCP and fbi profiler to further work on titrating insulin. - Do not administer short-acting insulin if your blood sugar is less than 100. Avoid low blood sugars. In case, you develop low blood sugars (symptoms include dizziness, feeling tired and shaky), keep a candy bar with you or a small juice on hand if you feel those symptoms. Your Discharge Medication List Your Medications New Medications Dose Details aspirin EC 81 mg EC (DR) tablet Take 1 tablet by mouth daily for 90 days. 81 mg Quantity: 30 tablet Refills: 2 clopidogreL 75 mg tablet Commonly known as: Plavix Take 1 tablet by mouth daily for 90 days. 75 mg Quantity: 30 tablet Refills: 2 furosemide 40 mg tablet Commonly known as: Lasix Take 1 tablet by mouth daily for 90 days. 40 mg Quantity: 30 tablet Refills: 2 Insulin Basaglar KwikPen U-100 100 unit/mL (3 mL) pen Inject 50 Units subcutaneously 2 times daily for 40 days. Indications: type 2 diabetes mellitus Generic drug: insulin glargine 50 Units Quantity: 40 mL Refills: 0 insulin needles (disposable) 32 gauge x 5/32 Needle Inject 1 each subcutaneously nightly. Indications: diabetes 1 each Quantity: 100 each Refills: 11 metFORMIN XR 500 mg ER 24 hr tablet Commonly known as: Glucophage XR Take 2 tablets by mouth daily for 90 days. Replaces: metFORMIN 500 mg tablet 1,000 mg Quantity: 60 tablet Refills: 2 metoprolol succinate XL 100 mg ER 24 hr tablet Commonly known as: Toprol-XL Take 1 tablet by mouth daily for 90 days. 100 mg Quantity: 30 tablet Refills: 2 nitroGLYcerin 0.4 mg sublingual tablet Commonly known as: Nitrostat Place 1 tablet under the tongue every 5 minutes as needed for Chest pain for up to 20 doses. 0.4 mg Quantity: 20 tablet Refills: 0 NovoLOG Flexpen U-100 Insulin 100 unit/mL (3 mL) Insulin Pen Inject 10-20 Units subcutaneously 3 times daily (with meals). Take 10 units with small meals, 15 units with medium meals, and 20 units with large meals. Generic drug: insulin aspart U-100 10-20 Units Quantity: 15 mL Refills: 0 rosuvastatin 40 mg tablet Commonly known as: Crestor Take 1 tablet by mouth every evening for 90 days. 40 mg Quantity: 30 tablet Refills: 2 spironolactone 25 mg tablet Commonly known as: Aldactone Take 1 tablet by mouth daily for 90 days. 25 mg Quantity: 30 tablet Refills: 2 Continued medications with new dosing Dose Details losartan 50 mg tablet Commonly known as: Cozaar Take 1 tablet by mouth daily for 90 days. What changed: medication strength how much to take 50 mg Quantity: 30 tablet Refills: 2 Continued medications, unchanged Dose Details ketoconazole 2 % Cream Commonly known as: Nizoral as needed. Refills: 0 Ozempic 0.25 mg or 0.5 mg(2 mg/1.5 mL) Pen Injector Inject 1 mg subcutaneously once a week. Generic drug: semaglutide 1 mg Refills: 0 umeclidinium-vilanteroL 62.5-25 mcg/actuation Disk with Device Commonly known as: Anoro Ellipta Inhale 1 puff into the lungs daily. 1 puff Quantity: 1 each Refills: 3 STOPPED Medications LORazepam 1 mg tablet Commonly known as: Ativan melatonin 3 mg tablet metFORMIN 500 mg tablet Commonly known as: Glucophage Replaced by: metFORMIN XR 500 mg ER 24 hr tablet Ventolin HFA 90 mcg/actuation HFA Aerosol Inhaler Generic drug: albuteroL verapamiL SR 180 mg ER (SR) tablet Commonly known as: Calan-SR Vraylar 3 mg capsule Generic drug: cariprazine Follow-up: Future Appointments Date Time Provider Department Center 02/12/2024 12:20 PM [facility] CT [address] [facility] RAD CT [facility] Rad 02/12/2024 1:40 PM Siva Harrison MD [facility] [place] [facility] Please call your PCP on Sunday to request a follow-up visit of this hospitalization. The Cardiology clinic will contact you to schedule an initial visit. If you have not heard from them in the next week, please call [facility] and request the Cardiology clinic to discuss follow-up. Your Inpatient Medical Team at [facility] Name(s) of your inpatient provider(s): Abram Wei MD, Davy Schwab MD Your Primary Care Provider: Leo Alegre DO [phone] For questions regarding this document or issues relating to this hospitalization on the Cardiology Service, please contact your inpatient physician through the [facility] Order Editor . Issues after hours and on weekends will be handled by the sergeant at arms on-call. General Instructions None Future Appointments and Orders Future Appointments and Orders Future Appointments Provider Department Dept Phone 02/12/2024 12:20 PM [facility] CT [address] CT Scan at [facility] Arrive at: [facility] [phone] 02/12/2024 1:40 PM Siva Harrison MD Pulmonology at [facility] Arrive at: [facility] [phone] Future Orders Complete By Expires Referral to Cardiac Rehab [[id number] Custom] As directed Process Instructions: If no progress note charted, please enter Clinical details in comments. Scheduling Instructions: Questions: My question or request is: STEMI, PCI- cardiac rehab at [facility] Referral to Cardiology [REF12 Custom] As directed Process Instructions: If no progress note charted, please enter Clinical details in comments. Scheduling Instructions: Questions: My question or request is: 63M, STEMI s/p PCI to LCX, has additional unrevascularized disease. Establishing care. Would consider [place] or [facility] Referral to Endocrinology [REF22 Custom] As directed Process Instructions: If no progress note charted, please enter Clinical details in comments. Scheduling Instructions: Questions: My question or request is: 63 yo hospitalized for UT course complicated by DKA, significant insulinrequirements as inpatient. Requires close follow-up. Specialist Level of Involvement: Specialist Management Is patient being referred for thyroid nodule?: No Provider Contact Information: Leo Alegre DO [address] [facility] [address] Discharge References/Attachments: Discharge References/Attachments Diabetes Diet Meal Planning: General Info (Bahamian) How to Prevent a Second Heart Attack: Video (Bahamian) After a Heart Attack: Taking an Aspirin or Antiplatelet: Video (Bahamian) Diabetic Ketoacidosis (DKA) (Bahamian) PCI (Percutaneous Coronary Intervention): Post-op (Bahamian) Cardiac Rehabilitation (Bahamian) documented in this encounter Discharge Instructions * Patient Instructions* Davy Schwab MD - 12/15/2023 6:00 PM EST Instructions on Discharge to Home Why you were hospitalized - You were admitted to [facility] for a STEMI (heart attack) and required a stent be placed in one of your coronary arteries. You had smaller blockages in other arteries which will require ongoing monitoring, and possibly intervention. You were also treated for critically high blood glucose levels (diabetic ketoacidosis, or DKA) requiring IV insulin. We have started you on a number of medications that are important for keeping your stent open, and helping your heart to heal. Please review the list below carefully, and reach out to your PCP with any questions. We also started you on insulin, to help maintain good blood glucose control. We have placed a referral to see a [facility] Tapper, as well as a whip operator, and to start Cardiac Rehabilitation. It is also important to see your PCP after being hospitalized. Call your doctor or seek medical attention if you develop the following - Chest pain, shortness of breath, feeling dizzy upon standing, passing out, diarrhea, constipation lasting longer than 2 days,fevers (temperature over 100.3F), chills, abdominal pain, vomiting, difficulty or discomfort when urinating, bloody or black bowel movements, or any other acute or concerning symptom. Activity level - No restrictions Diet - No change in previous diet Driving - As before hospitalization Shower/Bath - Permitted Wound Care - None Home Oxygen therapy - Not necessary New medications: To reduce risk of further heart attacks and prevent your new stent from clotting: - start aspirin 81 mg daily - start plavix 75 mg daily To improve the functioning of your heart and your general cardiovascular health: - start losartan 50 mg daily - start spironolactone 25 mg daily - start metoprolol succinate 100 mg daily - start furosemide 40 mg (diuretic), see further instructions below - start rosuvastatin 40 mg daily To improve control of your underlying diabetes: - start metformin extended release 1000 mg daily - resume your home ozempic weekly injections - start insulin long-acting basaglar 50 units twice daily - take meal-associated short-acting insulin 10 units with small meals, 15 units with medium-sized meals, and 20 units with large meals; alternatively, you can begin to count carbs as instructed by the Diabetes Toolkit book you were given. You can administer 1 unit of short-acting insulin for every 5 carbs if you decide to count carbs. As needed medications: - take sublingual nitroglycerin tablets as needed for chest pain Heart Failure (HF) Action plan Your Diagnosis is: HF with Reduced Ejection Fraction (Systolic HF- trouble with the heart squeezingand emptying) Mildly reduced ejection fraction Your Weight on day of discharge is: 301 pounds Here are the CONNELLY THINGS you can do to help manage your heart failure: Watch for signs that you???re getting worse, such as worsening leg swelling or shortness of breath.Weighing yourself every day can catch worsening heart failure (holding on to fluid) before you get worsening symptoms. Weigh yourself at the same time every day, using the same scale in the same amount of clothing. The best time is in the morning after going to the bathroom and before eating or drinking. Keep a record of your daily weight, along with any change in diuretic dose. If you gain more than 2 pounds in a day or 5 pounds in a week, or if you notice more leg swelling than usual, more coughing, or mildly worse shortness of breath, take an extra furosemide 40 mg tabletevery day until your weight returns to the baseline weight on day of discharge. Call now for an urgent appointment if: you have any trouble breathing at rest, wake up at night short of breath, feel dizzy or very tired, or have other bothersome new or worsening symptoms. Call 911 for an ambulance if: you have severe shortness of breath, chest pain or pressure, coughingup foamy pink mucous, have a fainting spell or feel confused. Know your triggers and learn to avoid them. Triggers are things that can make heart failure worse, like eating salty foods or taking NSAIDs (ibuprofen, motrin, aleve). Sodium (salt) is usually limited to under 2000 mg/day- which is less than a teaspoon. Avoid table salt and processed foods, read nutrition labels, and be careful when you eat out. Exercise at least 5 days a week. Exercise makes your heart stronger and can reduce symptoms. Walking is a great form of exercise. Moderate exercise is usually safe, but talk with your doctor before starting a strenuous exercise program. Avoid more than one drink/day of alcohol. Diabetes action plan - Measure your blood sugar every morning when you wake up and before you eat. Your goal for fastingblood sugar levels is 140. If your sugar is less than 100, decrease your long-acting insulin by 5 units to 45 units twice daily. - If your morning fasting sugar level is greater than 200, increase your long- acting insulin to 55 units twice daily. - Take short-acting insulin with meals. 10 units with small meals, 15 units with medium-sized meals, and 20 units with large meals. - Overall the goal is keep your sugar between 140-180 throughout the day. Make sure to keep track of your sugars with the Kaylee. Follow-up with your PCP and fbi profiler to further work on titrating insulin. - Do not administer short-acting insulin if your blood sugar is less than 100. Avoid low blood sugars. In case, you develop low blood sugars (symptoms include dizziness, feeling tired and shaky), keep a candy bar with you or a small juice on hand if you feel those symptoms. Your Discharge Medication List Your Medications New Medications Dose Details aspirin EC 81 mg EC (DR) tablet Take 1 tablet by mouth daily for 90 days. 81 mg Quantity: 30 tablet Refills: 2 clopidogreL 75 mg tablet Commonly known as: Plavix Take 1 tablet by mouth daily for 90 days. 75 mg Quantity: 30 tablet Refills: 2 furosemide 40 mg tablet Commonly known as: Lasix Take 1 tablet by mouth daily for 90 days. 40 mg Quantity: 30 tablet Refills: 2 Insulin Basaglar KwikPen U-100 100 unit/mL (3 mL) pen Inject 50 Units subcutaneously 2 times daily for 40 days. Indications: type 2 diabetes mellitus Generic drug: insulin glargine 50 Units Quantity: 40 mL Refills: 0 insulin needles (disposable) 32 gauge x 5/32 Needle Inject 1 each subcutaneously nightly. Indications: diabetes 1 each Quantity: 100 each Refills: 11 metFORMIN XR 500 mg ER 24 hr tablet Commonly known as: Glucophage XR Take 2 tablets by mouth daily for 90 days. Replaces: metFORMIN 500 mg tablet 1,000 mg Quantity: 60 tablet Refills: 2 metoprolol succinate XL 100 mg ER 24 hr tablet Commonly known as: Toprol-XL Take 1 tablet by mouth daily for 90 days. 100 mg Quantity: 30 tablet Refills: 2 nitroGLYcerin 0.4 mg sublingual tablet Commonly known as: Nitrostat Place 1 tablet under the tongue every 5 minutes as needed for Chest pain for up to 20 doses. 0.4 mg Quantity: 20 tablet Refills: 0 NovoLOG Flexpen U-100 Insulin 100 unit/mL (3 mL) Insulin Pen Inject 10-20 Units subcutaneously 3 times daily (with meals). Take 10 units with small meals, 15 units with medium meals, and 20 units with large meals. Generic drug: insulin aspart U-100 10-20 Units Quantity: 15 mL Refills: 0 rosuvastatin 40 mg tablet Commonly known as: Crestor Take 1 tablet by mouth every evening for 90 days. 40 mg Quantity: 30 tablet Refills: 2 spironolactone 25 mg tablet Commonly known as: Aldactone Take 1 tablet by mouth daily for 90 days. 25 mg Quantity: 30 tablet Refills: 2 Continued medications with new dosing Dose Details losartan 50 mg tablet Commonly known as: Cozaar Take 1 tablet by mouth daily for 90 days. What changed: medication strength how much to take 50 mg Quantity: 30 tablet Refills: 2 Continued medications, unchanged Dose Details ketoconazole 2 % Cream Commonly known as: Nizoral as needed. Refills: 0 Ozempic 0.25 mg or 0.5 mg(2 mg/1.5 mL) Pen Injector Inject 1 mg subcutaneously once a week. Generic drug: semaglutide 1 mg Refills: 0 umeclidinium-vilanteroL 62.5-25 mcg/actuation Disk with Device Commonly known as: Anoro Ellipta Inhale 1 puff into the lungs daily. 1 puff Quantity: 1 each Refills: 3 STOPPED Medications LORazepam 1 mg tablet Commonly known as: Ativan melatonin 3 mg tablet metFORMIN 500 mg tablet Commonly known as: Glucophage Replaced by: metFORMIN XR 500 mg ER 24 hr tablet Ventolin HFA 90 mcg/actuation HFA Aerosol Inhaler Generic drug: albuteroL verapamiL SR 180 mg ER (SR) tablet Commonly known as: Calan-SR Vraylar 3 mg capsule Generic drug: cariprazine Follow-up: Future Appointments Date Time Provider Department Center 02/12/2024 12:20 PM [facility] CT [address] [facility] RAD CT [facility] Rad 02/12/2024 1:40 PM Siva Harrison MD [facility] PULM [facility] Please call your PCP on Sunday to request a follow-up visit of this hospitalization. The Cardiology clinic will contact you to schedule an initial visit. If you have not heard from them in the next week, please call [facility] and request the Cardiology clinic to discuss follow-up. Your Inpatient Medical Team at [facility] Name(s) of your inpatient provider(s): Abram Wei MD, Davy Schwab MD Your Primary Care Provider: Leo Alegre DO [phone] For questions regarding this document or issues relating to this hospitalization on the Cardiology Service, please contact your inpatient physician through the [facility] Order Editor . Issues after hours and on weekends will be handled by the sergeant at arms on-call. * Attachments The following attachments cannot be sent through Care Everywhere. * Diabetes Diet Meal Planning: General Info (Bahamian) * How to Prevent a Second Heart Attack: Video (Bahamian) * After a Heart Attack: Taking an Aspirin or Antiplatelet: Video (Bahamian) * Diabetic Ketoacidosis (DKA) (Bahamian) * PCI (Percutaneous Coronary Intervention): Post-op (Bahamian) * Cardiac Rehabilitation (Bahamian) documented in this encounter Medications at Time of Discharge Medication Sig Dispensed Refills Start Date End Date nitroGLYcerin (Nitrostat) 0.[address] 1 tablet under the tongue every 5 minutes as needed for Chest pain for up to 20 doses. 20 tablet 12/16/2023 insulin needles, disposable, 32 gauge x 5/32 NeedleIndications:di abetes mellitus Inject 1 each subcutaneously nightly. Indications: diabetes 100 each 11 12/16/2023 ketoconazole (NIZORAL) 2 % Cream as needed. 08/15/2017 Ozempic 1 mg/dose (4 mg/3 mL) Pen Injector 09/18/2023 02/12/2024 Ozempic 2 mg/dose (8 mg/3 mL) Pen Injector 10/29/2023 02/12/2024 losartan (Cozaar) 50 mg tablet Take 1 [...] 90 days. 60 tablet 2 12/16/2023 03/15/2024 Insulin Basaglgwendolyn PinzonikPen U-100 100 unit/mL (3 mL) penIndications:type 2 diabetes mellitus Inject 50 Units subcutaneously 2 times daily for 40 days. Indications: type 2 diabetes mellitus 40 mL 12/16/2023 01/25/2024 NovoLOG Flexpen U-100 Insulin 100 unit/mL (3 mL) Insulin Pen Inject 10-20 Units subcutaneously 3 times daily (with meals). Take 10 units with small meals, 15 units with medium meals, and 20 units with large meals. 15 mL 12/16/2023 02/26/2024 umeclidinium-vilante roL (Anoro Ellipta) 62.5-25 mcg/actuation Disk with DeviceIndications:Ch ronic obstructive pulmonary disease, unspecified COPD type,Cigarette nicotine dependence in remission Inhale 1 puff into the lungs daily. 1 each 3 09/14/2023 01/02/2024 semaglutide (Ozempic) 0.25 mg or 0.5 mg(2 mg/1.5 mL) Pen Injector Inject 1 mg subcutaneously once a week. 02/12/2024 documented as of this encounter Progress Notes * Kimberly Mckeon RCP - 12/15/2023 10:08 PM EST Respiratory Therapy NIV Note NIV Settings: NIV Mode: S/T IPAP (cmH20): 12 EPAP (cmH20): 5 Pressure Support (cm H2O): 7 FiO2 (%): 35 % NIV Measurements: Resp: 15 Mve: 15 Leak (L/min): 34 L/min Vte: 687 SpO2: 97 % Skin Assessment: NIV Skin Assessment WDL: (JULEE already on pt) Mepilex Applied: (S) No (patient refused) Nares Assessment WDL: WDL Assessment: Pt has been compliant nocturnal BIPAP. Plan: Continue nocturnal BIPAP. KIMBERLY MCKEON RCP * Abram Wei MD - 12/15/2023 8:18 AM EST Images from the original note were not included. Inpatient Cardiology Progress Note Patient information: Name: Martín Alvarado : 1960 PCP: Leo Alegre DO PCP phone number: [phone] Date of Admission: 12/12/2023 ( Hospital Day 3 days ) Service: Cardiology S1 Responsible Attending:Abram Wei MD ID: Martín Alvarado is a 63 y.o. male with PMH notable for HTN, NIDDM2, COPD, BP, obesity, and nephrolithiasis who presented as a transfer from [facility] for inferior STEMI, now s/p PCI to X, with course c/b DKA. 24 Hour Events: Overnight: - Discontinued insulin gtt. On long-acting BID - NAEON; VSS This AM: - Feeling well. Ambulatory. - Denies chest pressure, palpitations, dyspnea, diaphoresis, abdominal pain, n/v/d, or other symptoms Vitals: Last value Range last 24 hrs Temperature Temp: 37.3 ??C (99.1 ??F) Temp: [36.7 ??C (98.1 ??F)-37.3 ??C (99.1 ??F)] Heart Rate Heart Rate: 92 Heart Rate: [85-94] Blood Pressure BP: (!) 142/91 BP: (116-164)/(69-101) Respiratory Rate Resp: 20 Resp: [18-23] SpO2 SpO2: 93 % SpO2: [93 %-100 %] Intake/Output Summary (Last 24 hours) at 12/15/2023 0818 Last data filed at 12/15/2023 0715 Gross per 24 hour Intake 2105.7 ml Output 4675 ml Net -2569.3 ml Patient Vitals for the past 168 hrs: Weight 12/15/23 0331 (!) 137 kg (302 lb 1.6 oz) 12/14/23 0444 (!) 137.3 kg (302 lb 9.6 oz) 12/13/23 0500 134.3 kg (296 lb 1.2 oz) 12/12/23 2146 136 kg (299 lb 13.2 oz) 12/12/23 1851 136 kg (299 lb 13.2 oz) Admit wt: 136 kg Physical Exam: Gen: Male patient, well appearing, in no acute distress. Neck: No JVD appreciated. CV: Regular rate and rhythm. No murmurs, gallops, rubs. Pulm: Clear to auscultation bilaterally, vesicular breath sounds, no wheezes or rhonchi. Abd: Protuberant but soft, nontender, nondistended. No organomegaly appreciated. Ext: 1+ symmetric lower extremity edema. PT pulses 2+ bilaterally. Skin: Warm, dry in extremities. Neuro: Nonfocal. Labs/Microbiology: Recent Labs 12/15/23 0403 12/13/23 0156 12/13/23 0034 12/12/23 1830 WBC 18.3* 16.2* Clotted 21.6* HGB 15.4 14.2 Clotted 14.2 HCT 45.6 41.7 Clotted 41.4 PLATELET 253 272 Clotted 331 NEUTROABS 11.35* 12.55* -- 17.78* Recent Labs 12/15/2340212/14/23215412/14/23 180 NA 132* 132* 130* K 3.5 3.6 3.8 CL 94* 96* 95* CO2 24 23 21* BUN 26* 28* 26* CREATININE 0.88 0.91 0.83 GLUCOSE 121 148 246* ANIONGAP 14 13 14 Recent Labs 12/15/23 0403 12/14/23 21512/14/23 18012/14/23 0009 12/13/23 19512/13/23 0034 12/12/231999 CALCIUM 9.2 8.9 8.9 < > 9.0 < > 8.1* MAGNESIUM -- -- -- -- 0.90 -- 0.66* PHOS -- -- -- -- 4.1 -- 4.8* < > = values in this interval not displayed. Recent Labs 12/13/2333 BILITOT 1.3 BILIDIR 0.2 ALBUMIN 3.9 ALKPHOS 55 ALT 109* AST 671* Recent Labs 12/13/2333 TSH 0.32 Recent Labs 12/13/2333 HA1C 10.0* BOHB 2.09 -> 0.18 -> 0.35 -> 0.46 Lactate 3.8 EKG: Inferior LEIDY with reciprocal anterior depressions. LHC: Coronary Angiography: Anatomically normal left dominant circulation LMCA: Without angiographic apparent disease LAD: 60% mid vessel disease, 75% distal disease LCx: 100% proximal lesion, 40% proximal OM1 with moderate diffuse disease, 70% proximal OM2 lesion,65% ostial LPDA lesion RCA: Mid 95% lesion (small and non-dominant vessel) Contrast: 124 ccs LVEDP: 31 mmHg - Hemodynamic instability initially requiring pressors (levophed to 15 and epi to 4) with ability to come off all pressors after vessel was opened. - Successful PCI of the proximal LCX (Culprit 100% s/p unsuccessful lytics) with a 4.0 x 22 mm OnyxFrontier DYANA post-dilated with a 4.5 NC balloon. - Complex 3VD which would make complete revascularization by PCI complex. Recommend stabilization and then either medical management or Heart Team Approach for further intervention. - Noted to be likely in DKA in lab with glucose 500s and AG metabolic acidosis, started DKA protocol without fluids with insulin and K+ and discussed with CVCC team who is taking over care of the patient for further management. - The patient tolerated the procedure well and was transferred from the cardiac catheterization labin stable condition without apparent complications. TTE: -Left ventricular systolic function is mildly reduced. The left ventricular ejection fraction is 41% by Wells's biplane. There is akinesis of the inferolateral and anterolateral segments. -The right ventricle is of normal size. Right ventricular systolic function is normal. Pulmonary artery hypertension could not be assessed due to inadequate tricuspid regurgitation jet. -There is no significant valve disease. -Other than a [id number] study performed on yesterday's date with similar findings, no comparison study is available. See report for additional findings. Imaging: Results for orders placed or performed during the hospital encounter of 12/12/23 XR Chest One View (Exam End: 12/13/2023 9:28 AM) Impression Mild vascular congestion without focal airspace disease. Thank you for letting us participate in the care of this patient. If you are a health care provider and have any questions regarding this report, please contact the number below. For patients who have questions please contact the health care process manager that requested your imaging first. Medications: losartan 25 mg Oral Daily ### metoproloL tartrate 25 mg Oral Q6H [facility] ### spironolactone 25 mg Oral Daily ### insulin lispro 0-40 Units Subcutaneous TID WC ### insulin glargine (Lantus;Semglee) (100 unit/mL) subcutaneous injection 60 Units Subcutaneous Daily with dinner ### insulin glargine (Lantus;Semglee) (100 unit/mL) subcutaneous injection 60 Units Subcutaneous Daily ### insulin lispro 2-12 Units Subcutaneous Q4H [facility] ### tiotropium bromide 2 puff Inhalation Daily ### And olodateroL 2 puff Inhalation Daily ### heparin (porcine) 5,000 Units Subcutaneous Q8H [facility] ### sodium chloride 0.9 % (flush) 5 mL Intravenous BID ### aspirin EC 81 mg Oral Daily ### clopidogreL 75 mg Oral Daily ### sodium chloride 0.9 % (flush) 5 mL Intravenous BID ### rosuvastatin 40 mg Oral QPM ### insulin lispro, influenza vaccine (6 mos-64 yrs)(PF), ipratropium-albuteroL, sodium chloride 0.9 % (flush), lidocaine, glucose 40% oral geL OR dextrose OR glucagon, atropine, sodium chloride 0.9 % (flush), lidocaine, nitroGLYcerin, potassium chloride ER OR potassium chloride ER insulin regular human Stopped (12/14/23 7172) Assessment: Martín Alvarado is a 63 y.o. male with PMH notable for HTN, NIDDM2, COPD, BP, obesity, and nephrolithiasis who presented as a transfer from [facility] for inferior STEMI, now s/p PCI to LCX, with course c/b DKA. Successful revascularization of 100% LCX with immediate improvement in hemodynamics. Requires ongoing diuresis for elevated filling pressures with new WMA and newly reduced LV function on post-cath TTE. Will continue to optimize GDMT today and ensure control of HTN. Successful transition to SC insulin, appreciate DM team assistance. Will continue stabilization while assessing options for addressing of complex multivessel disease identified at time of culprit lesion revascularization. Rest of plan as follows. Plan: #STEMI s/p PCI to LCX #Complex multivessel disease #New onset, acute heart failure with reduced ejection fraction #HTN #Metabolic syndrome #Cardiogenic shock, resolved - ASA 81mg - Clopidogrel 75mg - Rosuvastatin 40mg - continue metoprolol tartrate 25 mg q6h - increase losartan to 50 mg daily - start spironolactone 25 mg daily - Titrate GDMT as tolerated - IV lasix 80mg this AM, goal -1L today - Cardiac rehab referral #DKA #NIIDM - DM management - Hgb A1c 10.0% - BMP, BOHB q4h - Minimize fluids given volume overload - HOLD metformin 500mg daily, semaglutide 1mg qw - START glargine 60 units bid - 1:2 meal/snack associated #Hypoxia without respiratory failure, resolved #COPD - Umeclidinium-vilanterol 62.5-25mcg, 1 puff daily - DuoNebs QID PRN #Bipolar disorder - No longer taking cariprazine 3mg daily DVT prophylaxis: SQH TID GI prophylaxis: None Diet: Carb control Access: PIV x2 Disposition: Pending clinical course Code status: Attempt Cardiopulmonary Resuscitation - Inpatient Ryan Salas MD PGY-3, Internal Medicine Cardiology S1, Pager #[phone] 12/15/23 Cardiology Staff - Progress Note This patient was seen and examined on morning rounds with the inpatient S1 team. I agree with the findings and plan of care per Ryan Salas (medical housestaff) which we discussed on rounds. Pleaserefer to his note above for details. * Sylvester Tobar, [facility] - 12/14/2023 11:34 PM EST Patient was evaluated on nasal cannula and placed on NIV for nocturnal use. Patient is tolerating the current settings. I will continue to monitor. 12/14/23 2155 Non Invasive Ventilation Data NIV Device EV300 NIV Mode S/T NIV Charges $ Start NIV via machine Yes NIV Settings FiO2 (%) 35 % IPAP (cmH20) 12 EPAP (cmH20) 5 Pressure Support (cm H2O) 7 RR Set 1 NIV Humid. H2O Level (S) (patient refused humidity) NIV Measurements Resp 22 Mve 28 Vte 1348 Leak (L/min) 29 L/min P Insp. Nabila. (cm H2O) 13 NIV Interface NIV Interface Options Face Mask Mask Size (ped / adult) Large NIV Skin Assessment NIV Skin Assessment WDL WDL Mepilex Applied (S) No (patient refused) Nares Assessment WDL WDL * Tatiana Zazueta, PT - 12/14/2023 2:31 PM EST PT Note Pt up walking with Cardiac rehabilitation services coordinator. Pt will benefit from continued ambulation with nursing and mobility techs. Will place pt on walk list for mobility techs. No formal PT needs at this time. Tatiana Zazueta, PT Pager [phone] * Janina Moon APRN - 12/14/2023 7:47 AM EST Follow Up Diabetes Consult Patient Interview Spent time today reviewing patient's glucose levels, insulin use and chart notes. Reviewed recommendations with patient and primary team. Objective Temp: [36.4 ??C (97.5 ??F)-36.9 ??C (98.4 ??F)] Heart Rate: [77-114] Resp: [21-24] BP: (124-180)/(87-110) SpO2: [91 %-97 %] Heart Rate from SpO2: -- Current Regimen from previous note Lantus:60 units daily Lispro 1:4 insulin to carbohydrate ratio Myxredlin insulin drip Recent Glucose Levels Recent Labs 12/14/23 0942 12/14/23 0843 12/14/23 0743 12/14/23 0627 12/14/23 0530 12/14/23 0438 12/14/23 0326 12/14/23 0220 12/14/23 0142 12/14/23 0031 12/13/23 2335 12/13/23 2235 POCGLU 247* 209* 183 167 190 179 174 143 134 157 157 177 ASSESSMENT Patient is a 63 y.o. years old male with PMH significant for DM (Last A1C of 10%) who was admitted on 12/12/2023 for STEMI. Diabetes uncontrolled and currently complicated by unknown insulin needs. Currently with variability of blood glucose levels while hospitalized requiring adjustment of insulin regimen and DM medications. Patient used 227 units yesterday. This is about 113 units of glargine. Using rule of 500 and 1500 respectively, gives a carb ratio of 2.2 and a Correction scale of 6.6. Recommend 60 units twice daily. Recommend 1;2 carb ratio. Recommend 2 units for every 15 >140 CORRECTION BOLUS [1-8 Units] Custom Sliding Scale (BG in mg/dL): Correction factor 15 (1 unit of insulin is expected to drop theglucose 15 mg/dL) BG 140 - 155 Give 2 units BG 156 - 170 Give 4 units BG 171 - 185 Give 6 units BG 186 - 200 Give 8 units BG 201 - 215 Give 10 units BG 216 - 230 Give 12 units BG 231 - 245 Give 14 units BG 246 - 260 Give 16 units BG 261 - 275 Give 18 units BG greater than 275, give 20 units and recheck BG in 2 hours. If recheck BG remains greater than 240, Give 7 units (no more than TWO times) & call for new insulin orders. If less than 240 after two hours, give no insulin and resume prior schedule. DO NOT hold if NPO, unless specifically directed to do so by written order. Per Blood Glucose Monitoring Policy, re-check a BG of > 240 mg/dL in 2 hours. PLAN (primary team to enter in correction scale when insulin drip is stopped) Lantus:60 units twice daily Lispro 1:2 insulin to carbohydrate ratio with meals and snacks Lispro for correction q 4 hours using 2:15>140 correction scale Diet CHO count level 2 Janina Moon APRN [facility] Endocrinology Diabetes Management Pager [phone] minutes of this 35 minute visit was spent with the patient in counseling on diabetes and treatment plan, reviewing all glucose and insulin data as well as relevant laboratory results with the patient, and coordination of care on the inpatient unit including nursing and primary team. * Abram Wei MD - 12/14/2023 7:20 AM EST Images from the original note were not included. Inpatient Cardiology Progress Note Patient information: Name: Martín Alvarado : 1960 PCP: Leo Alegre DO PCP phone number: [phone] Date of Admission: 12/12/2023 ( Hospital Day 2 days ) Service: Cardiology S1 Responsible Attending:Jon Root MD ID: Martín Alvarado is a 63 y.o. male with PMH notable for HTN, NIDDM2, COPD, BP, obesity, and nephrolithiasis who presented as a transfer from [facility] for inferior STEMI, now s/p PCI to X, with course c/b DKA. 24 Hour Events: Overnight: - Has remained on insulin drip due to persistently elevated BOHB 0.56 This AM: - BP 180/110, HR 114 this AM, repeat 137/98 HR 90 - No acute events - Denies chest pressure, palpitations, dyspnea, diaphoresis, abdominal pain, n/v/d, or other symptoms Vitals: Last value Range last 24 hrs Temperature Temp: 36.9 ??C (98.4 ??F) Temp: [36.4 ??C (97.5 ??F)-36.9 ??C (98.4 ??F)] Heart Rate Heart Rate: 94 Heart Rate: [77-114] Blood Pressure BP: (!) 164/101 BP: (132-180)/(87-110) Respiratory Rate Resp: 22 Resp: [21-24] SpO2 SpO2: 95 % SpO2: [91 %-96 %] Intake/Output Summary (Last 24 hours) at 12/14/2023 1205 Last data filed at 12/14/2023 1049 Gross per 24 hour Intake 2448 ml Output 3826 ml Net -1378 ml Patient Vitals for the past 168 hrs: Weight 12/14/23 0444 (!) 137.3 kg (302 lb 9.6 oz) 12/13/23 0500 134.3 kg (296 lb 1.2 oz) 12/12/23 2146 136 kg (299 lb 13.2 oz) 12/12/23 1851 136 kg (299 lb 13.2 oz) Admit wt: 136 kg Physical Exam: Gen: Male patient, well appearing, in no acute distress. Neck: No JVD appreciated. CV: Regular rate and rhythm. No murmurs, gallops, rubs. Pulm: Clear to auscultation bilaterally, vesicular breath sounds, no wheezes or rhonchi. Abd: Protuberant but soft, nontender, nondistended. No organomegaly appreciated. Ext: 1+ symmetric lower extremity edema. PT pulses 2+ bilaterally. Skin: Warm, dry in extremities. Neuro: Nonfocal. Labs/Microbiology: Recent Labs 12/13/23 0156 12/13/23 0034 12/12/23 1830 WBC 16.2* Clotted 21.6* HGB 14.2 Clotted 14.2 HCT 41.7 Clotted 41.4 PLATELET 272 Clotted 331 NEUTROABS 12.55* -- 17.78* Recent Labs 12/14/23 0959 12/14/23 0336 12/14/23 0009 12/13/231955 NA 132* 133* 134* 133* K 3.8 3.7 3.7 3.5 CL 96* 100 101 99 CO2 24 19* 18* 19* BUN 24* 27* 29* 31* CREATININE 0.89 0.81 0.94 1.03 GLUCOSE 212* -- 152 206* ANIONGAP 12 14 15 15 Recent Labs 12/14/23 0959 12/14/23 0336 12/14/23 0009 12/13/23195512/13/233312/12/231999 CALCIUM 9.1 8.9 9.0 9.0 < > 8.1* MAGNESIUM -- -- -- 0.90 -- 0.66* PHOS -- -- -- 4.1 -- 4.8* < > = values in this interval not displayed. Recent Labs 12/13/2333 BILITOT 1.3 BILIDIR 0.2 ALBUMIN 3.9 ALKPHOS 55 ALT 109* AST 671* Recent Labs 12/13/2333 TSH 0.32 Recent Labs 12/13/2333 HA1C 10.0* BOHB 2.09 -> 0.18 -> 0.35 -> 0.46 Lactate 3.8 EKG: Inferior LEIDY with reciprocal anterior depressions. LHC: Coronary Angiography: Anatomically normal left dominant circulation LMCA: Without angiographic apparent disease LAD: 60% mid vessel disease, 75% distal disease LCx: 100% proximal lesion, 40% proximal OM1 with moderate diffuse disease, 70% proximal OM2 lesion,65% ostial LPDA lesion RCA: Mid 95% lesion (small and non-dominant vessel) Contrast: 124 ccs LVEDP: 31 mmHg - Hemodynamic instability initially requiring pressors (levophed to 15 and epi to 4) with ability to come off all pressors after vessel was opened. - Successful PCI of the proximal LCX (Culprit 100% s/p unsuccessful lytics) with a 4.0 x 22 mm OnyxFrontier DYANA post-dilated with a 4.5 NC balloon. - Complex 3VD which would make complete revascularization by PCI complex. Recommend stabilization and then either medical management or Heart Team Approach for further intervention. - Noted to be likely in DKA in lab with glucose 500s and AG metabolic acidosis, started DKA protocol without fluids with insulin and K+ and discussed with CVCC team who is taking over care of the patient for further management. - The patient tolerated the procedure well and was transferred from the cardiac catheterization labin stable condition without apparent complications. TTE: -Left ventricular systolic function is mildly reduced. The left ventricular ejection fraction is 41% by Wells's biplane. There is akinesis of the inferolateral and anterolateral segments. -The right ventricle is of normal size. Right ventricular systolic function is normal. Pulmonary artery hypertension could not be assessed due to inadequate tricuspid regurgitation jet. -There is no significant valve disease. -Other than a [id number] study performed on yesterday's date with similar findings, no comparison study is available. See report for additional findings. Imaging: Results for orders placed or performed during the hospital encounter of 12/12/23 XR Chest One View (Exam End: 12/13/2023 9:28 AM) Impression Mild vascular congestion without focal airspace disease. Thank you for letting us participate in the care of this patient. If you are a health care provider and have any questions regarding this report, please contact the number below. For patients who have questions please contact the health care process manager that requested your imaging first. Medications: losartan 25 mg Oral Daily ### metoproloL tartrate 25 mg Oral Q6H [facility] ### spironolactone 25 mg Oral Daily ### insulin glargine (Lantus;Semglee) (100 unit/mL) subcutaneous injection 60 Units Subcutaneous BID ### insulin lispro 0-40 Units Subcutaneous TID WC ### tiotropium bromide 2 puff Inhalation Daily ### And olodateroL 2 puff Inhalation Daily ### heparin (porcine) 5,000 Units Subcutaneous Q8H [facility] ### sodium chloride 0.9 % (flush) 5 mL Intravenous BID ### aspirin EC 81 mg Oral Daily ### clopidogreL 75 mg Oral Daily ### sodium chloride 0.9 % (flush) 5 mL Intravenous BID ### rosuvastatin 40 mg Oral QPM ### insulin lispro, influenza vaccine (6 mos-64 yrs)(PF), ipratropium-albuteroL, sodium chloride 0.9 % (flush), lidocaine, glucose 40% oral geL OR dextrose OR glucagon, atropine, sodium chloride 0.9 % (flush), lidocaine, nitroGLYcerin, potassium chloride ER OR potassium chloride ER insulin regular human 5.37 Units/hr (12/14/23 5337) Assessment: Martín Alvarado is a 63 y.o. male with PMH notable for HTN, NIDDM2, COPD, BP, obesity, and nephrolithiasis who presented as a transfer from [facility] for inferior STEMI, now s/p PCI to LCX, with course c/b DKA. Successful revascularization of 100% LCX with immediate improvement in hemodynamics. Requires ongoing diuresis for elevated filling pressures with new WMA and newly reduced LV function on post-cath TTE. Will begin to optimize GDMT today and ensure control of HTN. Also, DKA management ongoing with elevated BOHB. Will attempt to transition off the insulin drip today and double long- acting insulin, tighten insulin to carb ratio. Appreciate DM team assistance. Will continue stabilization while assessing options for addressing of complex multivessel disease identified at time of culprit lesion revascularization. Rest of plan as follows. Plan: #STEMI s/p PCI to LCX #Complex multivessel disease #New onset, acute heart failure with reduced ejection fraction #HTN #Metabolic syndrome #Cardiogenic shock, resolved - ASA 81mg - Clopidogrel 75mg - Rosuvastatin 40mg - increase metoprolol tartrate to 25 mg q6h - start losartan 25 mg daily - start spironolactone 25 mg daily - Titrate GDMT as tolerated - IV lasix 80 this AM - Cardiac rehab referral #DKA #NIIDM - DM management - Hgb A1c 10.0% - BMP, BOHB q4h - Minimize fluids given volume overload - HOLD metformin 500mg daily, semaglutide 1mg qw - START glargine 60 units bid - 1:2 meal/snack associated #Hypoxia without respiratory failure, resolved #COPD - Umeclidinium-vilanterol 62.5-25mcg, 1 puff daily - DuoNebs QID PRN #Bipolar disorder - No longer taking cariprazine 3mg daily DVT prophylaxis: SQH TID GI prophylaxis: None Diet: Carb control Access: PIV x2 Disposition: Pending clinical course Code status: Attempt Cardiopulmonary Resuscitation - Inpatient Ryan Salas MD PGY-3, Internal Medicine Cardiology S1, Pager #[phone] 12/14/23 Cardiology Staff - Progress Note This patient was seen and examined on morning rounds with the inpatient S1 team. I agree with the findings and plan of care per Ryan Salas (medical housestaff) which we discussed on rounds. Pleaserefer to his note above for details. 63 year old male with IDDM admitted in transfer for further management of an inferior STEMI He is alert and awake and feeling well overall. BP continues to run high. Increase metoprolol to 25 mg po q6, resume losartan 25 (on this at home),add serina 25. Hold CCB given newly reduced LVEF (EF 41% with akinesis at the lateral wall). Continue to coordinate care with the diabetes service for management of his DKA. Other details as above. * Ryan Salas MD - 12/13/2023 11:13 AM EST Images from the original note were not included. Inpatient Cardiology Progress Note Patient information: Name: Martín Alvarado : 1960 PCP: Leo Alegre DO PCP phone number: [phone] Date of Admission: 12/12/2023 ( Hospital Day 1 day ) Service: Cardiology S1 Responsible Attending:Frances Eisenberg MD ID: Martín Alvarado is a 63 y.o. male with PMH notable for HTN, NIDDM2, COPD, BP, obesity, and nephrolithiasis who presented as a transfer from [facility] for inferior STEMI, now s/p PCI to LCX, with course c/b DKA. 24 Hour Events: - Admitted overnight for STEMI. See H&P. - S/p PCI to LCX. Complex 3-vessel disease noted. LVEDP 31mmHg; started diuresis. - Insulin gtt started for DKA noted upon admission. Subjective: - Seen at time of downgrade from [facility] - Feeling well; CP has resolved - Denies f/c, chest pressure, palpitations, dyspnea, diaphoresis, abdominal pain, n/v/d, or other symptoms Vitals: Last value Range last 24 hrs Temperature Temp: 36.5 ??C (97.7 ??F) Temp: [36.5 ??C (97.7 ??F)-36.9 ??C (98.4 ??F)] Heart Rate Heart Rate: 82 Heart Rate: [63-105] Blood Pressure BP: 105/70 BP: (70-146)/(55-98) Respiratory Rate Resp: 27 Resp: [13-27] SpO2 SpO2: 96 % SpO2: [92 %-100 %] Intake/Output Summary (Last 24 hours) at 12/13/2023 1113 Last data filed at 12/13/2023 1000 Gross per 24 hour Intake 1410.29 ml Output 550 ml Net 860.29 ml Patient Vitals for the past 168 hrs: Weight 12/13/23 0500 134.3 kg (296 lb 1.2 oz) 12/12/23 2146 136 kg (299 lb 13.2 oz) 12/12/23 1851 136 kg (299 lb 13.2 oz) Admit wt: 136 kg Physical Exam: Gen: Male patient, well appearing, in no acute distress. Neck: No JVD appreciated. CV: Regular rate and rhythm. No murmurs, gallops, rubs. Pulm: Clear to auscultation bilaterally, vesicular breath sounds, no wheezes or rhonchi. Abd: Protuberant but soft, nontender, nondistended. No organomegaly appreciated. Ext: 1+ symmetric lower extremity edema. PT pulses 2+ bilaterally. Skin: Warm, dry in extremities. Neuro: Nonfocal. Labs/Microbiology: Recent Labs 12/13/23 0156 12/13/23 00312/12/23 1830 WBC 16.2* Clotted 21.6* HGB 14.2 Clotted 14.2 HCT 41.7 Clotted 41.4 PLATELET 272 Clotted 331 NEUTROABS 12.55* -- 17.78* Recent Labs 12/13/23 0750 12/13/23 0400 12/13/23 003 NA 133* 136 140 K 4.3 4.2 4.1 CL 99 101 104 CO2 17* 19* 19* BUN 33* 31* 26* CREATININE 1.60* 1.64* 1.48 GLUCOSE 176 168 189 ANIONGAP 17* 16* 17* Recent Labs 12/13/23 0750 12/13/23 0400 12/13/23 00312/12/23 2000 CALCIUM 8.4* 8.3* 8.1* 8.1* MAGNESIUM -- -- -- 0.66* PHOS -- -- -- 4.8* Recent Labs 12/13/2333 BILITOT 1.3 BILIDIR 0.2 ALBUMIN 3.9 ALKPHOS 55 ALT 109* AST 671* Recent Labs 12/13/2333 TSH 0.32 Recent Labs 12/13/2333 HA1C 10.0* BOHB 2.09 -> 0.18 -> 0.35 -> 0.46 Lactate 3.8 EKG: Inferior LEIDY with reciprocal anterior depressions. LHC: Coronary Angiography: Anatomically normal left dominant circulation LMCA: Without angiographic apparent disease LAD: 60% mid vessel disease, 75% distal disease LCx: 100% proximal lesion, 40% proximal OM1 with moderate diffuse disease, 70% proximal OM2 lesion,65% ostial LPDA lesion RCA: Mid 95% lesion (small and non-dominant vessel) Contrast: 124 ccs LVEDP: 31 mmHg - Hemodynamic instability initially requiring pressors (levophed to 15 and epi to 4) with ability to come off all pressors after vessel was opened. - Successful PCI of the proximal LCX (Culprit 100% s/p unsuccessful lytics) with a 4.0 x 22 mm OnyxFrontier DYANA post-dilated with a 4.5 NC balloon. - Complex 3VD which would make complete revascularization by PCI complex. Recommend stabilization and then either medical management or Heart Team Approach for further intervention. - Noted to be likely in DKA in lab with glucose 500s and AG metabolic acidosis, started DKA protocol without fluids with insulin and K+ and discussed with CVCC team who is taking over care of the patient for further management. - The patient tolerated the procedure well and was transferred from the cardiac catheterization labin stable condition without apparent complications. TTE: -Left ventricular systolic function is mildly reduced. The left ventricular ejection fraction is 41% by Wells's biplane. There is akinesis of the inferolateral and anterolateral segments. -The right ventricle is of normal size. Right ventricular systolic function is normal. Pulmonary artery hypertension could not be assessed due to inadequate tricuspid regurgitation jet. -There is no significant valve disease. -Other than a [id number] study performed on yesterday's date with similar findings, no comparison study is available. See report for additional findings. Imaging: Results for orders placed or performed during the hospital encounter of 12/12/23 XR Chest One View (Exam End: 12/13/2023 9:28 AM) Impression Mild vascular congestion without focal airspace disease. Thank you for letting us participate in the care of this patient. If you are a health care provider and have any questions regarding this report, please contact the number below. For patients who have questions please contact the health care process manager that requested your imaging first. Medications: tiotropium bromide 2 puff Inhalation Daily ### And olodateroL 2 puff Inhalation Daily ### heparin (porcine) 5,000 Units Subcutaneous Q8H [facility] ### metoproloL tartrate 12.5 mg Oral 2 times per day ### sodium chloride 0.9 % (flush) 5 mL Intravenous BID ### aspirin EC 81 mg Oral Daily ### clopidogreL 75 mg Oral Daily ### sodium chloride 0.9 % (flush) 5 mL Intravenous BID ### rosuvastatin 40 mg Oral QPM ### sodium chloride 0.9 % (flush), lidocaine, glucose 40% oral geL OR dextrose OR glucagon, atropine, sodium chloride 0.9 % (flush), lidocaine, nitroGLYcerin, potassium chloride ER OR potassium chloride ER insulin regular human 6.5 Units/hr (12/13/23 1053) Assessment: Martín Alvarado is a 63 y.o. male with PMH notable for HTN, NIDDM2, COPD, BP, obesity, and nephrolithiasis who presented as a transfer from [facility] for inferior STEMI, now s/p PCI to LCX, with course c/b DKA. Successful revascularization of 100% LCX with immediate improvement in hemodynamics. At this time is appropriate for downgrade from [facility]. Requires ongoing diuresis for elevated filling pressures withnew WMA and reduced LV function on post-cath TTE. DKA management ongoing with tenacious anion gap. A ppreciate DM team assistance. Will continue stabilization while assessing options for addressing ofcomplex multivessel disease identified at time of culprit lesion revascularization. Rest of plan asfollows. Plan: #STEMI s/p PCI to LCX #Complex multivessel disease #Reduced ejection fraction #HTN #Metabolic syndrome - See [facility] report - Anticipate CTS evaluation - TTE - Lipids, A1c, TSH - Trend/replete lytes - ASA 81mg - Clopidogrel 75mg - Rosuvastatin 40mg (note hx unspecified atorvastatin allergy) - Metoprolol 12.5mg q6h - HOLD losartan 25mg pending renal recovery - DC verapamil 180mg BID - Titrate GDMT as tolerated - Lasix 40mg IV PRN, goal -1L net output - Cardiac rehab referral #DKA #NIIDM - Appreciate DM Mgmt team assistance - Hgb A1c 10.0% - BMP, BOHB q4h - Fasting glucose - C peptide - DM1 evaluation panel - Minimize fluids given volume overload - HOLD metformin 500mg daily - HOLD semaglutide 1mg qw - Insulin gtt - START glargine 65u - 1:6 meal/snack associated - Defer correctional insulin pending conclusion of insulin gtt #COPD - Umeclidinium-vilanterol 62.5-25mcg, 1 puff daily - DuoNebs QID PRN #Bipolar disorder - No longer taking cariprazine 3mg daily DVT prophylaxis: SQH TID GI prophylaxis: None Diet: Carb control Access: PIV x2 Disposition: Pending clinical course Code status: Attempt Cardiopulmonary Resuscitation - Inpatient Ryan Salas MD PGY-3, Internal Medicine Cardiology S1, Pager #[phone] 12/13/23 documented in this encounter H&P Notes * Dorys Cardoza MD - 12/13/2023 12:00 AM EST Images from the original note were not included. Cardiology ICU H&P Patient info: Name: Martín Alvarado : 1960 PCP: Leo Alegre DO PCP phone number: [phone] Date of Admission: 12/12/2023 ( Hospital Day 0 days ) Attending:Frances Eisenberg MD ID: Martín Alvarado is a 63 y.o. male w/ PMH HTN, NIDDM2, COPD, obesity, and nephrolithiasis who presents as a transfer from [facility] for inferior STEMI. Patient states he was in his normal state of health until around 11 PM last night, when he started having transient episodes of chest pain that woke him up from sleep but resolved on its own. When hewoke up this morning, he was chest pain free. This afternoon, he presented for an outpatient mentalhealth appointment and had recurrence of his chest pain, diaphoresis, and shortness of breath. EKG obtained with inferior LEIDY and anterior ST depressions. Patient remained HDS at the OSH. He was aspirin loaded, plavix loaded, started on a heparin gtt, and received TNK. He was transferred to [facility] for catheterization. Per Dr. Carmen's Op Note: Preliminary findings: Coronary Angiography: Anatomically normal left dominant circulation LMCA: Without angiographic apparent disease LAD: 60% mid vessel disease, 75% distal disease LCx: 100% proximal lesion, 40% proximal OM1 with moderate diffuse disease, 70% proximal OM2 lesion,65% ostial LPDA lesion RCA: Mid 95% lesion (small and non-dominant vessel) Contrast: 124 ccs LVEDP: 31 mmHg Conclusion: - Hemodynamic instability initially requiring pressors (levophed to 15 and epi to 4) with ability to come off all pressors after vessel was opened. - Successful PCI of the proximal LCX (Culprit 100% s/p unsuccessful lytics) with a 4.0 x 22 mm OnyxFrontier DYANA post-dilated with a 4.5 NC balloon. - Complex 3VD which would make complete revascularization by PCI complex. Recommend stabilization and then either medical management or Heart Team Approach for further intervention. - Noted to be likely in DKA in lab with glucose 500s and AG metabolic acidosis, started DKA protocol without fluids with insulin and K+ and discussed with [facility] team who is taking over care of the patient for further management. - The patient tolerated the procedure well and was transferred from the cardiac catheterization labin stable condition without apparent complications. Patient was HDS on arrival to the [facility] and off of pressors. On oxygen mask @ 6 L/min. Patient denies recurrent chest pain, lightheadedness/dizziness, palpitations, abdominal pain, or nausea. Patient denies any prior cardiac history. Unclear family history (patient was adopted). He denies alcohol use or current tobacco use (former smoker from age [age], up to 3 ppd). ROS: Per HPI. PMH Past Medical History: Diagnosis Date Bipolar 1 disorder Diabetes HTN (hypertension) PATRICIA treated with BiPAP PSH Past Surgical History: Procedure Laterality Date SINUS SURGERY TONSILLECTOMY Allergies: Allergies Allergen Reactions Amlodipine Besylate Other (See Comments) Atorvastatin Other (See Comments) Lisinopril Other (See Comments) CAUSES COUGH Home Medications: Current Outpatient Medications Medication Instructions ketoconazole (NIZORAL) 2 % Cream PRN LORazepam (ATIVAN) 1 mg, Oral, PRN losartan (COZAAR) 25 mg, Oral, DAILY metFORMIN (GLUCOPHAGE) 500 mg, Oral, DAILY Ozempic 1 mg, Subcutaneous, WEEKLY umeclidinium-vilanteroL (Anoro Ellipta) 62.5-25 mcg/actuation Disk with Device 1 puff, Inhalation, DAILY verapamiL SR (CALAN-SR) 180 mg, Oral, 2 TIMES DAILY Family History Family History Problem Relation Age of Onset Respiratory Disease Neg Hx Objective: Vitals Last value Range last 24 hrs Temperature Temp: 36.9 ??C (98.4 ??F) Temp: [36.9 ??C (98.4 ??F)] Heart Rate Heart Rate: (!) 105 Heart Rate: [63-105] Blood Pressure BP: 116/68 BP: (70-146)/(55-98) Art Line BP BP (Arterial Line): -- MAP (NBP): [79 mmHg-110 mmHg] Respiratory Rate Resp: 25 Resp: [15-25] SpO2 SpO2: 97 % SpO2: [92 %-100 %] Oxygen Delivery Oxygen Therapy O2 Device: Nasal cannula O2 Flow Rate (L/min): 6 L/min FiO2 (%): 50 % Reason for Oxygen: Titration down from previous higher respiratory or O2 need Intake/Output Summary (Last 24 hours) at 12/12/2023 2307 Last data filed at 12/12/2023 2200 Gross per 24 hour Intake 578.45 ml Output 200 ml Net 378.45 ml Patient Vitals for the past 168 hrs: Weight 12/12/23 2146 136 kg (299 lb 13.2 oz) 12/12/23 1851 136 kg (299 lb 13.2 oz) Physical Exam: General: NAD CV: RRR, no murmurs auscultated Resp: coarse breath sounds anteriorly, on O2 mask Abdomen: soft, nontender Extremities: trace edema b/l (baseline) Labs: Recent Labs 12/12/23 1830 WBC 21.6* HGB 14.2 HCT 41.4 PLATELET 331 MCV 84.7 Recent Labs 12/12/23199912/12/23 1830 NA 133* 132* CL 99 96* CO2 16* 14* K 7.4* 3.8 MAGNESIUM 0.66* -- PHOS 4.8* -- CALCIUM 8.1* 8.0* BUN 23* 24* CREATININE 1.48 1.72* LFTs No results for input(s): PROT, ALBUMIN, AST, ALT, ALKPHOS, BILITOT, BILIDIR in the last 168 hours. Coags No results for input(s): INR, PT, PTT, FIBRINOGEN, DDIMER in the last 168 hours. Invalid input(s): THROMBIN TIME Cardiac Enzymes No results for input(s): CK, TROPONINT, PROBNP in the last 168 hours. Endocrine No results for input(s): TSH, CORTISOL in the last 7068 hours. Invalid input(s): [id number] Recent Labs 01/31/24 2206 01/31/211312/12/23201112/12/23 19212/12/23 1818 POCGLU 250* 361* 426* 463* 562* Heme No results for input(s): LDH, HAPTOGLOBIN, URICACID in the last 168 hours. Microbiology: Imaging/Diagnostics: Medications Scheduled: sodium chloride 0.9 % (flush) 5 mL Intravenous BID [START ON 12/13/2023] aspirin EC 81 mg Oral Daily [START ON 12/13/2023] clopidogreL 75 mg Oral Daily [START ON 12/13/2023] umeclidinium-vilanteroL 1 puff Inhalation Daily sodium chloride 0.9 % (flush) 5 mL Intravenous BID rosuvastatin 40 mg Oral QPM Continuous: insulin regular human 5 Units/hr (12/12/232223) PRN: sodium chloride 0.9 % (flush), lidocaine, glucose 40% oral geL OR dextrose OR glucagon, atropine, sodium chloride 0.9 % (flush), lidocaine, nitroGLYcerin, potassium chloride ER OR potassium chloride ER Assessment & Plan: Martín Alvarado is a 63 y.o. male w/ PMH HTN, NIDDM2, COPD, obesity, and nephrolithiasis who [facility]. Findings notable for 100% proximal Lcx lesion now s/p successful PCI and complex 3VD. Will continue medical management for now and continue to explore options for revascularization. 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 Labs notable for glucose 500s with elevated BOHB and AG. Initiated on insulin gtt with q4 BMPs; however, will hold the fluid component of the DKA protocol given volume overload (elevated LVEDP of 31). Will diurese with IV lasix 40. Cardiovascular # STEMI s/p PCI to LCX #Complex 3VD #HTN #Elevated LVEDP -continue aspirin 81 -continue plavix 75 -start rosuvastatin 40 -documented allergy to atorvastatin (patient uncertain what the reaction was) -start BB in the AM if HR/BP allows -holding home antihypertensives (losartan, verapamil) given pressor requirements earlier; restart when appropriate -explore options for revascularization -s/p IV lasix 40 -formal TTE Pulmonary #COPD -home Anoro Ellipta Endocrine #DKA -continue insulin gtt -hold fluids given volume overload -q4 BMP -consult to DM management #Routine Diet: NPO diet (Give Meds) BM: DVT Prophylaxis: None Dispo: Pending clinical course Code Status: Attempt Cardiopulmonary Resuscitation - Inpatient Dorys Cardoza MD Internal Medicine, PGY-2 Cardiology 12/12/23 11:07 PM Associated attestation - Frances Eisenberg MD - 12/13/2023 11:10 AM EST CARDIOLOGY ATTENDING NOTE Patient: Martín Alvarado Date of Service: 12/13/2023 Date of Admission: 12/12/2023 Length of Stay Hospital Day 1 day Please see the below note by Dr. Cardoza for details. I have interviewed and examined the patient independently and I concur with the assessment and plan as documented, with exceptions/additions/emphases as noted below. The case was discussed on cardiology rounds and we reviewed the plan of care with the team and patient. 63yoM w/ hypertension, poorly controlled DM2 (HA1c 10 not on insulin), COPD (Gold 2A), BMI 42, nephrolithiasis, depression, TUD in remission admitted with inferior STEMI found to have dominant LCX culprit within the context of multivessel disease. 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 Residual obstructive disease in LAD, OM, small non-dominant RCA. Patient also noted to be in DKA and started on DKA protocol insulin gtt. No acute events since index procedure. Patient reports feeling well this morning. Hungry. Denies chest pain or dyspnea. Exam: Afebrile, HR 70s-80s, BP 90s-110s/60s-80s SpO2 92-97% on 4-6LNC Middle aged male, non-toxic NC/AT, sclera anicteric, poor dentition Unable to appreciate JVP due to habitus Regular rhythm, normal rate, no murmur Respirations unlabored, clear anteriorly Abd obese, soft Ext WWP, trace edema Non-diaphoretic AAOx3, face symmetric, moving all extremities normally Appropriate, cooperative Labs personally reviewed notable for elevated WBCs likely stress demargination, mild GRACY Cr 1.64 with elevated anion gap acidosis (improving) and normal K. Moderate transaminitis AST 671 / ALT 109 likely acute shock and congestive related. Elevated lactate (3.8) and BOHB improving. Ha1c is 10. CXR with mild congestion. EKG showing inferior Qs without significant residual ST abnormalities. TTE with predominantly lateral WMAs and LVEF 41%. Normal RV. Continue with medical optimization post-STEMI. Consideration of medical management versus non-urgent revascularization of remaining obstructive disease once medical comorbidities better optimized andpatient further recovered from STEMI. Can discuss in outpatient setting assuming patient continues to do well. Continuing management of improving but ongoing DKA. Will attempt to add low dose metoprolol later today if BPs remain stable. Oxygenation target can be lower in setting of moderate COPD, goal SpO2 88% wean supplemental O2 as tolerated. Okay for transfer out of ICU. Attending Attestation and Certification Please see Frances Eisenberg MD's note for details of the patient history of presentation and data.I have discussed, reviewed and agree with the documented History, Physical findings, Assessment andPlan of care. I have examined the patient myself and personally reviewed all studies. In addition, I certify thatI am a D-H credentialed attending provider with admitting privileges and that the patient meets or has met medical necessity to require an inpatient IPI level of care meeting a minimum of two midnights or is on the [facility] inpatient only procedure list (status C) due to: acute myocardial infarction requiring titration of IV medication and fluid monitoring, decompensated congestive heart failure requiring IV medication and fluid monitoring, monitoring of fluid status given an inability to regulate fluid balance and the need for administration or restriction of fluid, acute kidney injury necessitating close monitoring of fluid balance such as IV fluids and/or titration of medication to achieve optimal effect and minimize the chance of immediate or severe side effects, acute respiratory compromise and/or hypoxia requiring assessment every 4 hours and the ability to respond immediately to the patient's needs, and diabetic ketoacidosis requiring frequent lab monitoring and IV insulin titration. Frances Eisenberg MD Cardiovascular Medicine Personal Pager [phone] 12/13/2023 10:47 AM documented in this encounter Miscellaneous Notes * Plan of Care - Kimberly Colorado RN - 12/16/2023 4:38 PM EST Discharge education completed. AVS reviewed with PT and partner. Both verbalize understanding. * Consult Note - Юлия Celis RN - 12/14/2023 1:46 PM EST Cardiac Rehabilitation Inpatient Evaluation Primary Cardiac Diagnosis: STEMI, PCI Cardiac Risk Factors: Smoking: yes, MJ Overweight: yes Hyperlipidemia: yes Sedentary: yes HTN: yes Family history: unknown DM: yes Stress: unknown Patient Education: Reviewed cardiac cath findings, implications of coronary artery disease, managing angina and risk factor modification. 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 He admits that he is not active. Given parameters for home exercise. He is working with Endocrinology for better management. Phase II Referral: Participation in the outpatient cardiac rehabilitation program at [facility] in [facility] was discussed. Patient agrees to a referral to this program. The referral will be sent at discharge and the patient should be contacted by the Program within 1- 2 weeks from discharge. Activity Summary: By discharge, patient will be able to perform self care, walk 5-7 minutes and go up and down stairs without signs or symptoms of ischemia. Activity Baseline Response Walk ~120 feet HR 92 100 BP 131/96 161/101 O2 Sat 99% on 2L O2 95% on 2L O2 ECG SR SR Symptoms/Comments: Patient walked while insulin gtt running and on 2L O2. He was very dyspneic. It was his first time ambulating in days. Discussed w/RN. He needs to continue w/frequent, short walks * Care Management Discharge - Steve Patel RN - 12/14/2023 11:10 AM EST CARE MANAGEMENT FINAL DISCHARGE NOTE Chart reviewed, care reviewed with primary team and at interdisciplinary rounds. Patient is medically ready for discharge to home. Needs for Transition of Care: per discharge instructions Plan for discharge is: Home w/o Services Agency Referrals & Follow-up Care: per discharge instructions Transportation: family or friend will provide Wheelchair van/Ambulance? No Functional status prior to admission: Independent Home Environment: Others in the home: alone, pet(s) (Lives w/ his dog). Current Living Arrangements: home/apartment/condo. Accessibility Concerns:1-level. 6 LEIDY home. No concerns.. Current Functional Ability: Independent DME used at home: none DME Needed at Discharge: N/A Patient is insured through: Primary Insurance: MEDICARE Payor: MEDICARE / Plan: MEDICARE PART A & B / Product Type: *No Product type* / Secondary Insurance: [employer] MANAGED MEDICAID Prescription Coverage: Yes This plan was formulated with input from patient and team. All are in agreement with plan. * Plan of Rosa - Colleen Vargas RN - 12/14/2023 2:49 AM EST OUTCOME EVALUATION NOTE: OUTCOME SUMMARY: Pt A&Ox4. Remain on Insulin gtt infusing @ 2.87 u/hr. BG checked q1hr and current FSBS is 143. BiPap in use at night. PLAN MOVING FORWARD: Control BG and DC Insulin gtt INDIVIDUALIZED FALL PREVENTION INTERVENTIONS: Patient-specific fall risk factors per assessment: [current deficits]: Generalized weakness, possible hypoglycemia r/t insulin gtt Assistance [level of assistance required for transfers and ambulation]: SBA Supervision [direct monitoring required during toileting and ADLs]: SBA Surveillance [continuous indirect monitoring]: safety monitoring, C/L within reach Patient-specific fall prevention interventions for sensory deficits provided, if applicable: NA CPG GOAL OUTCOME EVALUATION: Problem: Adult Inpatient Plan of Care Goal: Plan of Care Review Outcome: Ongoing (Interventions Implemented as Appropriate) Goal: Patient-Specific Goal (Individualized) Outcome: Ongoing (Interventions Implemented as Appropriate) Goal: Absence of Hospital-Acquired Illness or Injury Outcome: Ongoing (Interventions Implemented as Appropriate) Goal: Optimal Comfort and Wellbeing Outcome: Ongoing (Interventions Implemented as Appropriate) Goal: Readiness for Transition of Care Outcome: Ongoing (Interventions Implemented as Appropriate) * Plan of Care - Halima Cardenas RN - 12/13/2023 7:01 PM EST OUTCOME EVALUATION NOTE: OUTCOME SUMMARY: Pt A/Ox4. SR on tele, see saved strips. Denies chest pain or SOB. Spo2 WNL on 4 L of supplemental oxygen. Insulin gtt. BiPAP at night. Support, [place], at bedside. PLAN MOVING FORWARD: IV diurese Transition Insulin gtt to SQ insulin CARE PLAN GOAL OUTCOME EVALUATION: Problem: Adult Inpatient Plan of Care Goal: Plan of Care Review Outcome: Ongoing (Interventions Implemented as Appropriate) Goal: Patient-Specific Goal (Individualized) Outcome: Ongoing (Interventions Implemented as Appropriate) Goal: Absence of Hospital-Acquired Illness or Injury Outcome: Ongoing (Interventions Implemented as Appropriate) Goal: Optimal Comfort and Wellbeing Outcome: Ongoing (Interventions Implemented as Appropriate) Goal: Readiness for Transition of Care Outcome: Ongoing (Interventions Implemented as Appropriate) Problem: Arrhythmia/Dysrhythmia (Cardiac Catheterization) Goal: Stable Heart Rate and Rhythm Outcome: Ongoing (Interventions Implemented as Appropriate) Problem: Bleeding (Cardiac Catheterization) Goal: Absence of Bleeding Outcome: Ongoing (Interventions Implemented as Appropriate) Problem: Contrast-Induced Injury Risk (Cardiac Catheterization) Goal: Absence of Contrast-Induced Injury Outcome: Ongoing (Interventions Implemented as Appropriate) Problem: Embolism (Cardiac Catheterization) Goal: Absence of Embolism Signs and Symptoms Outcome: Ongoing (Interventions Implemented as Appropriate) Problem: Ongoing Anesthesia/Sedation Effects (Cardiac Catheterization) Goal: Anesthesia/Sedation Recovery Outcome: Ongoing (Interventions Implemented as Appropriate) Problem: Pain (Cardiac Catheterization) Goal: Acceptable Pain Control Outcome: Ongoing (Interventions Implemented as Appropriate) Problem: Vascular Access Protection (Cardiac Catheterization) Goal: Absence of Vascular Access Complication Outcome: Ongoing (Interventions Implemented as Appropriate) * Consult Note - Xavier Navarro RCP - 12/13/2023 3:10 PM EST Respiratory Care Department Consult / Referral Note History: Martín Alvarado is a 63 y.o. male with a PMHx significant for 63yoM w/ hypertension, poorly controlled DM2 (HA1c 10 not on insulin), COPD (Gold 2A), BMI 42, nephrolithiasis, depression, TUD inremission admitted with inferior STEMI found to have dominant LCX culprit within the context of multivessel disease. 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 Residual obstructive disease in LAD,OM, small non-dominant RCA. Patient also noted to be in DKA and started on DKA protocol insulin gtt. Admission Date/Time 12/12/2023 5:39 PM Hospital Day 1 day Problem List: Active Hospital Problems Diagnosis STEMI (ST elevation myocardial infarction) Resolved Hospital Problems No resolved problems to display. Allergies Allergen Reactions Amlodipine Besylate Other (See Comments) Atorvastatin Other (See Comments) Lisinopril Other (See Comments) CAUSES COUGH 24 hour Events: Subjective: Objective: Vital Signs: Patient Vitals for the past 8 hrs: Temp Heart Rate From SP02 Pulse Resp BP SpO2 O2 Flow Rate (L/min) O2 Device 12/13/23 1000 -- 91 bpm 82 27 105/70 96 % 4 L/min NC 12/13/23 1119 36.5 ??C (97.7 ??F) -- 79 22 (!) 124/93 97 % 4 L/min NC 12/13/23 1312 -- -- 77 -- (!) 132/93 -- -- -- Oxygen Delivery: Interface: Nasal cannula Flow: 4 L/min FiO2: 50 % Intake/Output Summary (Last 24 hours) at 12/13/2023 1702 Last data filed at 12/13/2023 1600 Gross per 24 hour Intake 1764.29 ml Output 851 ml Net 913.29 ml Respiratory: Breath Sounds: bi-lat clear diminished Cough: strong non-productive Secretions: none Current Medications: Laboratory: No results found for: PHART, [id number], PO2ART, [id number], BEART Diagnostic Studies: Last Chest X-ray: Results for orders placed during the hospital encounter of 12/12/23 XR Chest One View Narrative EXAMINATION: XR CHEST ONE VIEW CLINICAL HISTORY: Hypoxia requiring supplemental O2, status-post cardiac catheterization for STEMI TECHNIQUE: 1 view of the chest COMPARISON: 09/14/2023 FINDINGS: Cardiomediastinal silhouette is mildly widened, though likely not significantly changed compared to prior given differences in technique and patient positioning. The aorta is tortuous. There is vascular congestion. There is no focal consolidation. No large pleural effusion or pneumothorax. No obvious acute osseous abnormalities. Impression Mild vascular congestion without focal airspace disease. Thank you for letting us participate in the care of this patient. If you are a health care provider and have any questions regarding this report, please contact the number below. For patients who have questions please contact the health care process manager that requested your imaging first. Current airway: Assessment: Patient reports use of nightly BiPAP and inability to sleep without one. Plan / Recommendation: Non Invasive Ventilation: Provide BiPAP to treat PATRICIA. BiPAP setup, patient not aware of home settings. Placed on 27/06 for initial trial. Xavier Navarro RCP * Initial Assessments - Patience Gilbert MSW - 12/13/2023 1:46 PM EST Office of Care Management Initial Assessment SIOMARA Gary reviewed record and discussed patient with Care Team. Source of Information: Team, bedside nurse, medical record, and Patient SIOMARA Introduced self/reviewed role; services accepted. Admitted From: Transfer from another hospital Location: [facility] Reason for Hospitalization: chest pain, sweating Covid Vaccination Status: 1st & 2nd dose Last COVID test: Past medical History: Past Medical History: Diagnosis Date Bipolar 1 disorder Diabetes HTN (hypertension) PATRICIA treated with BiPAP Hospitalizations Within the Past 30 Days: no previous admission in last 30 days Current Decision-Making Capacity: Self If AD's have not been completed the following surrogate would be surrogate decision maker per [place] surrogate decision making law. (Only good for 180 days) Any patient receiving care in [place] must abide by [place] law. The hierarchy for surrogate decision making is: (a) Patient???s spouse or civil union partner unless there is a divorce proceeding, separation agreement, or restraining order limiting that person???s relationship with the patient. (b) Any adult son or daughter of the patient. (c) Either parent of the patient. (d) Any adult brother or sister of the patient. (e) Any adult grandchild of the patient. (f) Any grandparent of the patient. (g) Any adult aunt, uncle, niece, or nephew of the patient. (h) A close friend of the patient. (i) The agent with financial power of assistant city attorney or a conservator appointed in accordance with RSA 464-A. (j) The guardian of the patient???s estate. Advance Care Planning: Attempt Cardiopulmonary Resuscitation - Inpatient <no information> -Advanced Directive: No, need to discuss (Referral sent to [facility] - [facility] [employer]) Current Coping/Education/Information Needs: None noted Current Functional Ability: Independent Functional Status Prior to Admission: Independent Prior ADLs & IADLs: Independent with all ADLs & IADLs Bathing: Independent with Bathing Dressing: Independent with Dressing Home Environment: Others in the home: alone, pet(s) (Lives w/ his dog). Current Living Arrangements: home/apartment/condo. Accessibility Concerns:1-level. 6 LEIDY home. No concerns.. In the last 12 months, was there a time when you were not able to pay the mortgage or rent on time?: No In the last 12 months, how many places have you lived?: 1 In the last 12 months, was there a time when you did not have a steady place to sleep or slept in ashelter (including now)?: No In the past 12 months has the [place], gas, oil, or water Useful at Night threatened to shut off services in your home?: No Within the past 12 months, you worried that your food would run out before you got the money to buymore.: Never true Within the past 12 months, the food you bought just didn't last and you didn't have money to get more.: Never true Resource / Environmental Concerns: Resource/Environmental Concerns: none In the past 12 months, has lack of transportation kept you from medical appointments or from getting medications?: No In the past 12 months, has lack of transportation kept you from meetings, work, or from getting things needed for daily living?: No Current DME: none Home Address confirmed as: [address] [place] [id number] Social & Family Supports: All names listed below confirmed with patient as current and correct Extended Emergency Contact Information Primary Emergency Contact: [place] Address: [address] [place] [address] Mobile Relation: Friend Current Care Provided by: self Provides Primary Care For: no one Caregiver if needed: none Quality of Family relationships: helpful, involved, supportive Community Resources being provided currently: none Behavioral Health History: None noted Substance Use/Abuse confirmed: Social History Tobacco Use Smoking Status Former Packs/day: 2.75 Years: 30.00 Additional pack years: 0.00 Total pack years: 82.50 Types: Cigarettes Quit date: 2002 Years since quittin.0 Smokeless Tobacco Never In the past year have you used an illegal drug or used a prescription medication for non-medical reasons?: No 0 No problems reported 1-2 Low level 3-5 Moderate level 6-8 Substantial level 9- 10 Severe level In the past year have you had 5 or more drinks a day containing alcohol?: No 0 to 7 points: Low risk 8 to 15 points: Medium risk 16 to 19 points: High risk 20 to 40 points: Addiction likely Other Pertinent/Service Specific Information: Health/Prescription Coverage: Primary Insurance: MEDICARE Payor: MEDICARE / Plan: MEDICARE PART A & B / Product Type: *No Product type* / Secondary Insurance: [employer] PL[employer] MANAGED MEDICAID ONLY if patient has Medicare A&B - Does this patient have secondary insurance?: Yes ; Prescription Coverage: Yes Preferred Pharmacy: [facility] [id number] Status: Patient is a : No Primary Care Provider confirmed: Leo Alegre DO [phone] Patient/Caregiver Goals of Treatment: Potential Needs for Transition of Care: unable to assess Agency Referrals: Not Applicable Transportation: no concerns Transportation Anticipated: family or friend will provide ([place] (friend) will provide a ride) Concerns to be Addressed: discharge planning Assessment: Patient is admitted to Cardiology service for STEMI Plan: Pending PT eval & hospital course. A member of the Care Management team will continue to monitor progress, follow for continuity of care and assist with transition of care planning. SIOMARA Costa * Consult Note - Janina Moon, BATTERY TESTER AND REPAIRER - 12/13/2023 10:44 AM EST Diabetes Management Team Inpatient Consult Date of Consultation: 12/13/2023 Consult Requested by: Cardiology Reason for Consultation: Martín Alvarado is a 63 y.o. male with PMH significant for DM who was admitted on 12/12/2023 currently being treated for STEMI. We are being consulted to assist with diabetes management and to provide a review of retirement diabetes care. Diabetes History: Matrín Alvarado has had diabetes for about 3 years. Current outpatient diabetes regimen: Diabetes Provider: PCP Medications: Ozempic 1 mg weekly, Metformin 500mg daily Monitoring is done 3-4 times daily 2 hours after eating. Often glucose are 250-300 Most recent HA1c was done on 12/13/23 and was 10%, suggesting an average glucose of 240 mg/dL. Typical diet is: 3 meals and 1-2 snacks a day - patient drinks a lot of water Tries to keep diet low carb Typical exercise regimen is sedentary Trouble with hypoglycemia no Current Weight 134.3 kg Diabetes Complications Status: Eyes: None Kidneys: GFR 49 on 12/13/23 Sensory: None Autonomic: None Cardiovascular : +STEMI Current Hospital Diabetes Care: Medications: Myxredlin IV drip Monitoring: q 1 hrs Diet: NPO ROS: deferred PMH Past Medical History: Diagnosis Date Bipolar 1 disorder Diabetes HTN (hypertension) PATRICIA treated with BiPAP Current Hospital Medications: tiotropium bromide 2 puff Inhalation Daily And olodateroL 2 puff Inhalation Daily heparin (porcine) 5,000 Units Subcutaneous Q8H [facility] metoproloL tartrate 12.5 mg Oral 2 times per day sodium chloride 0.9 % (flush) 5 mL Intravenous BID aspirin EC 81 mg Oral Daily clopidogreL 75 mg Oral Daily sodium chloride 0.9 % (flush) 5 mL Intravenous BID rosuvastatin 40 mg Oral QPM PRN: sodium chloride 0.9 % (flush), lidocaine, glucose 40% oral geL OR dextrose OR glucagon, atropine, sodium chloride 0.9 % (flush), lidocaine, nitroGLYcerin, potassium chloride ER OR potassium chloride ER Allergy: Allergies Allergen Reactions Amlodipine Besylate Other (See Comments) Atorvastatin Other (See Comments) Lisinopril Other (See Comments) CAUSES COUGH Social history: Social History Tobacco Use Smoking status: Former Packs/day: 2.75 Years: 30.00 Additional pack years: 0.00 Total pack years: 82.50 Types: Cigarettes Quit date: 2002 Years since quittin.0 Smokeless tobacco: Never Vaping Use Vaping Use: Never used Substance Use Topics Alcohol use: Not Currently Drug use: Yes Types: Marijuana Family history: Family History Problem Relation Age of Onset Respiratory Disease Neg Hx Vitals Last value Range last 24 hrs Temperature Temp: 36.5 ??C (97.7 ??F) Temp: [36.5 ??C (97.7 ??F)-36.9 ??C (98.4 ??F)] Heart Rate Heart Rate: 82 Heart Rate: [63-105] Blood Pressure BP: 105/70 BP: (70-146)/(55-98) Respiratory Rate Resp: 27 Resp: [13-27] SpO2 SpO2: 96 % SpO2: [92 %-100 %] Physical Exam: Gen: talking in clear sentences. Laying in bed comfortably Lungs: breathing non-labored. Neuro: Moving all extremities. Labs: Lab Results Component Value Date BUN 33 (H) 12/13/2023 CREATININE 1.60 (H) 12/13/2023 GLUCOSE 176 12/13/2023 GLUCFASTING 555 (CRIT) 12/12/2023 ESTGFR 49 (L) 12/13/2023 Lab Results Component Value Date HA1C 10.0 (H) 12/13/2023 No results found for: MICROALBUR No results found for: CHLPL No results found for: HDL No results found for: LDLCHOL No results found for: TRIG No results found for: CHOLHDL Assessment: Patient is a 63 y.o. years old male with PMH significant for DM (Last A1C of 10%) who was admitted on 12/12/2023 for STEMI. Diabetes uncontrolled and currently complicated by unknown insulin needs. Currently with variability of blood glucose levels while hospitalized requiring adjustment of insulin regimen and DM medications. TPN/TF: None Weight based considerations: Calculated TDD would be: 53-94 Glargine dosin, 47 Carb ratio: 10. 5.3 Correction Scale:30, 15.9 Patient has been getting 5 units every hour for last 12 hours . Which equals approximately 120 units for 24 hours. Discontinue IV insulin drip: Lantus dose of 60 units to be given 2 hours prior to drips discontinuation (drip can continue to run up to 4 hours) 2. At 2 hour yovany and before discontinuing IV insulin drip: Drip rate must be less than 2 units/hour Glucose must be less than 200mg/dl If above criteria not met, drip continues to run and insulin requirements, need to be reassessed. If above criteria met, drip can be discontinued and lispro correction is added. Due to significant insulin required postprandially, recommend changing carb ratio to 1:4 Plan: 1. Glargine 60 units qd 2. Lispro custom correction scale for BG>140 3. Lispro 1unit: 4 gm carb ratio for each meal and snack Diabetes Discharge Planning Medications - Outpatient treatment regimen recommendations pending based on the hospital course. Monitoring - continue BG 4 times daily, ac & hs Diet - low fat/low carb diet Exercise - weight-bearing exercise 30 min/day, as tolerated Thank you for allowing us to provide care for your patient Janina Moon APRN [facility] [place] Endocrinology Diabetes Management Pager [phone] minutes of this 80 minute visit was spent with the patient in counseling on diabetes and treatment plan, reviewing all glucose and insulin data as well as relevant laboratory results with the patient, and coordination of care on the inpatient unit * Plan of Care - Ruth Ann Castaneda RN - 12/13/2023 5:11 AM EST VSS over shift. Patient is alert and orientedx4, on nasal cannula 6L. NSR, BP's 100s/80s. No chest pain, right radial site CDI. Pulses palpable. 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 Lasix x1 ivp, voiding normally. DKA protocol switched to q1 insulin protocol per MD due to rapidly declining blood sugars and stable labs. Patient updated friend by phone. Problem: Adult Inpatient Plan of Care Goal: Plan of Care Review Outcome: Ongoing (Interventions Implemented as Appropriate) Goal: Patient-Specific Goal (Individualized) Outcome: Ongoing (Interventions Implemented as Appropriate) Goal: Absence of Hospital-Acquired Illness or Injury Outcome: Ongoing (Interventions Implemented as Appropriate) Goal: Optimal Comfort and Wellbeing Outcome: Ongoing (Interventions Implemented as Appropriate) Goal: Readiness for Transition of Care Outcome: Ongoing (Interventions Implemented as Appropriate) * Brief Op Note - Sandip Carmen MD - 12/12/2023 8:03 PM EST Brief Operative Note Patient Name: Martín Alvarado : [id number] MR#: [id number] Case Date: 12/12/2023 Surgeon: Surgeon(s) and Role: * Sergey Nava MD - Primary * Sandip Carmen MD - Assisting Fellow Preoperative diagnosis: STEMI Postoperative diagnosis: STEMI Preliminary Cardiac Catheterization Procedure Note: Procedure(s) performed: Right Radial Access - 6 Slender Coronary Angiography Left Heart Cath PCI-Stent IVUS Preliminary findings: Coronary Angiography: Anatomically normal left dominant circulation LMCA: Without angiographic apparent disease LAD: 60% mid vessel disease, 75% distal disease LCx: 100% proximal lesion, 40% proximal OM1 with moderate diffuse disease, 70% proximal OM2 lesion,65% ostial LPDA lesion RCA: Mid 95% lesion (small and non-dominant vessel) Contrast: 124 ccs LVEDP: 31 mmHg Conclusion: - Hemodynamic instability initially requiring pressors (levophed to 15 and epi to 4) with ability to come off all pressors after vessel was opened. - Successful PCI of the proximal LCX (Culprit 100% s/p unsuccessful lytics) with a 4.0 x 22 mm OnyxFrontier DYANA post-dilated with a 4.5 NC balloon. - Complex 3VD which would make complete revascularization by PCI complex. Recommend stabilization and then either medical management or Heart Team Approach for further intervention. - Noted to be likely in DKA in lab with glucose 500s and AG metabolic acidosis, started DKA protocol without fluids with insulin and K+ and discussed with CVCC team who is taking over care of the patient for further management. - The patient tolerated the procedure well and was transferred from the cardiac catheterization labin stable condition without apparent complications. Full report to follow. documented in this encounter Plan of Treatment Upcoming Encounters Date Type Department Care Team (Late st Contact Info) Description 07/02/2024 3:00 PM EDT Office Visit Endocrinology at [address] Leo Flor MD [facility] [place] [address] 08/12/2024 3:40 PM EDT Office [place] [address] Siva Harrison MD [facility] [place] [address] 09/18/2024 1:00 PM EST Office Visit Cardiology at [address] Jj Davis MD [facility] [place] [address] Scheduled Orders Name Type Priority Associated Diagnoses Orde r Schedule EKG [address] elevation myocardial infarction involving left circumflex coronary artery One Time for 1 Occurrences starting 12/12/2023 until 12/12/2023 EKG [address] elevation myocardial infarction involving left circumflex coronary artery One Time for 1 Occurrences starting 12/13/2023 until 12/13/2023 Scheduled Referrals Name Type Priority Associated Diagnoses Order Schedule Referral to Cardiac Rehab Outpatient Referral Routine ST elevation myocardial infarction involving left circumflex coronary artery Ordered: 12/16/2023 Referral to Cardiology Outpatient Referral Routine ST elevation myocardial infarction (STEMI), unspecified artery Ordered: 12/16/2023 Referral to Endocrinology Outpatient Referral Routine Type 2 diabetes mellitus with other circulatory complication, without long-term current use of insulin Ordered: 12/16/2023 documented as of this encounter Procedures Procedure Name Priority Date/Time Associated Diagnosis Comments POCT GLUCOSE Routine 12/16/2023 3:13 PM EST POCT GLUCOSE Routine 12/16/2023 11:36 AM EST POCT GLUCOSE Routine 12/16/2023 7:18 AM EST POCT GLUCOSE Routine 12/16/2023 5:02 AM EST HEMOGRAM Routine 12/16/2023 4:01 AM EST DIFFERENTIAL, AUTOMATED Routine 12/16/19 24 4:01 AM EST CBC (WITH DIFF) Routine 12/16/2023 4:01 AM EST BASIC METABOLIC PANEL Routine 12/16/2023 4:01 AM EST POCT GLUCOSE Routine 12/16/2023 12:25 AM EST POCT GLUCOSE Routine 12/15/2023 7:52 PM EST POCT GLUCOSE Routine 12/15/2023 4:47 PM EST BETA HYDROXYBUTYRATE Routine 12/15/2023 12:53 PM EST BASIC METABOLIC PANEL STAT 12/15/2023 12:53 PM EST POCT GLUCOSE Routine 12/15/2023 11:39 AM EST BETA HYDROXYBUTYRATE Routine 12/15/2023 9:09 AM EST BASIC METABOLIC PANEL STAT 12/15/2023 9:09 AM EST POCT GLUCOSE Routine 12/15/2023 7:15 AM EST SCAN, PERIPHERAL BLOOD Routine 4:03 AM EST HEMOGRAM Routine 12/15/2023 4:03 AM EST DIFFERENTIAL, AUTOMATED Routine 12/15/19 24 4:03 AM EST BETA HYDROXYBUTYRATE Routine 12/15/2023 4:03 AM EST CBC (WITH DIFF) Routine 12/15/2023 4:03 AM EST MAGNESIUM Routine 12/15/2023 4:03 AM EST BASIC METABOLIC PANEL STAT 12/15/2023 4:03 AM EST POCT GLUCOSE Routine 12/15/2023 3:30 AM EST POCT GLUCOSE Routine 12/15/2023 12:09 AM EST POCT GLUCOSE Routine 12/14/2023 11:21 PM EST POCT GLUCOSE Routine 12/14/2023 10:20 PM EST BETA HYDROXYBUTYRATE Routine 12/14/2023 9:55 PM EST BASIC METABOLIC PANEL STAT 12/14/2023 9:55 PM EST POCT GLUCOSE Routine 12/14/2023 9:15 PM EST POCT GLUCOSE Routine 12/14/2023 8:23 PM EST POCT GLUCOSE Routine 12/14/2023 7:15 PM EST BETA HYDROXYBUTYRATE Routine 12/14/2023 6:02 PM EST BASIC METABOLIC PANEL STAT 12/14/2023 6:02 PM EST POCT GLUCOSE Routine 12/14/2023 5:26 PM EST POCT GLUCOSE Routine 12/14/2023 3:47 PM EST POCT GLUCOSE Routine 12/14/2023 2:35 PM EST BETA HYDROXYBUTYRATE Routine 12/14/2023 2:11 PM EST C-PEPTIDE Routine 12/14/2023 2:11 PM EST HC GLUCOSE FASTING Routine 12/14/2023 2: 11 PM EST BASIC METABOLIC PANEL STAT 12/14/2023 2:11 PM EST POCT GLUCOSE Routine 12/14/2023 1:19 PM EST POCT GLUCOSE Routine 12/14/2023 12:13 PM EST POCT GLUCOSE Routine 12/14/2023 10:55 AM EST BETA HYDROXYBUTYRATE Routine 12/14/2023 9:59 AM EST BASIC METABOLIC PANEL STAT 12/14/2023 9:59 AM EST POCT GLUCOSE Routine 12/14/2023 9:42 AM EST POCT GLUCOSE Routine 12/14/2023 8:43 AM EST POCT GLUCOSE Routine 12/14/2023 7:43 AM EST POCT GLUCOSE Routine 12/14/2023 6:27 AM EST POCT GLUCOSE Routine 12/14/2023 5:30 AM EST POCT GLUCOSE Routine 12/14/2023 4:38 AM EST BMP W/FASTING GLUCOSE Routine 12/14/2023 3:36 AM EST BETA HYDROXYBUTYRATE Routine 12/14/2023 3:36 AM EST POCT GLUCOSE Routine 12/14/2023 3:26 AM EST POCT GLUCOSE Routine 12/14/2023 2:20 AM EST POCT GLUCOSE Routine 12/14/2023 1:42 AM EST POCT GLUCOSE Routine 12/14/2023 12:31 AM EST BETA HYDROXYBUTYRATE Routine 12/14/2023 12:09 AM EST BASIC METABOLIC PANEL Routine 12/14/2023 12:09 AM EST POCT GLUCOSE Routine 12/13/2023 11:35 PM EST POCT GLUCOSE Routine 12/13/2023 10:35 PM EST POCT GLUCOSE Routine 12/13/2023 9:31 PM EST POCT GLUCOSE Routine 12/13/2023 8:38 PM EST BETA HYDROXYBUTYRATE Routine 12/13/2023 7:56 PM EST PHOSPHORUS Routine 12/13/2023 7:56 PM EST MAGNESIUM Routine 12/13/2023 7:56 PM EST BASIC METABOLIC PANEL STAT 12/13/2023 7:56 PM EST POCT GLUCOSE Routine 12/13/2023 7:28 PM EST POCT GLUCOSE Routine 12/13/2023 6:34 PM EST POCT GLUCOSE Routine 12/13/2023 6:03 PM EST POCT GLUCOSE Routine 12/13/2023 5:32 PM EST POCT GLUCOSE Routine 12/13/2023 4:58 PM EST BETA HYDROXYBUTYRATE STAT 12/13/2023 4:06 PM EST BASIC METABOLIC PANEL STAT 12/13/2023 4:06 PM EST POCT GLUCOSE Routine 12/13/2023 3:55 PM EST POCT GLUCOSE Routine 12/13/2023 2:55 PM EST POCT GLUCOSE Routine 12/13/2023 1:56 PM EST POCT GLUCOSE Routine 12/13/2023 1:07 PM EST POCT GLUCOSE Routine 12/13/2023 12:30 PM EST DIABETES TYPE 1 EVALUATION Routine 12/13/2023 11:58 AM EST ANTI-CYCLIC CITRULLINATED PEPTIDE AB Routine 12/13/2023 11:58 AM EST BETA HYDROXYBUTYRATE Routine 12/13/2023 11:58 AM EST BASIC METABOLIC PANEL STAT 12/13/2023 11:58 AM EST POCT GLUCOSE Routine 12/13/2023 11:56 AM EST POCT GLUCOSE Routine 12/13/2023 10:51 AM EST POCT GLUCOSE Routine 12/13/2023 9:58 AM EST XR CHEST ONE VIEW Routine 12/13/2023 9:2 8 AM EST EKG 12-LEAD Routine 12/13/2023 9:[address] elevation myocardial infarction involving left circumflex coronary artery POCT GLUCOSE Routine 12/13/2023 9:02 AM EST ECHO COMPLETE W CONTRAST Routine 12/13/2023 8:[address] elevation myocardial infarction involving left circumflex coronary artery POCT GLUCOSE Routine 12/13/2023 7:52 AM EST BETA HYDROXYBUTYRATE Routine 12/13/2023 7:50 AM EST BASIC METABOLIC PANEL STAT 12/13/2023 7:50 AM EST POCT GLUCOSE Routine 12/13/2023 6:16 AM EST POCT GLUCOSE Routine 12/13/2023 5:04 AM EST POCT GLUCOSE Routine 12/13/2023 4:09 AM EST BETA HYDROXYBUTYRATE Routine 12/13/2023 4:00 AM EST BASIC METABOLIC PANEL STAT 12/13/2023 4:00 AM EST POCT GLUCOSE Routine 12/13/2023 1:59 AM EST HEMOGRAM Routine 12/13/2023 1:56 AM EST DIFFERENTIAL, AUTOMATED Routine 12/13/19 1:56 AM EST CBC (WITH DIFF) Routine 12/13/2023 1:56 AM EST CORONARY ANGIOGRAPHY 12/13/2023 1:05 AM EST STEMI POCT GLUCOSE Routine 12/13/2023 12:40 AM EST HEMOGRAM Routine 12/13/2023 12:34 AM EST BETA HYDROXYBUTYRATE Routine 12/13/2023 12:34 AM EST CBC (WITH DIFF) Routine 12/13/2023 12:34 AM EST TSH Routine 12/13/2023 12:34 AM EST HEMOGLOBIN A1C Routine 12/13/2023 12:34 AM EST HEPATIC FUNCTION PANEL Routine 12:34 AM EST BASIC METABOLIC PANEL STAT 12/13/2023 12:34 AM EST POCT GLUCOSE Routine 12/12/2023 11:26 PM EST POTASSIUM Routine 12/12/2023 10:14 PM EST POCT GLUCOSE Routine 12/12/2023 10:06 PM EST POCT GLUCOSE Routine 12/12/2023 9:14 PM EST POCT GLUCOSE Routine 12/12/2023 8:12 PM EST PHOSPHORUS Routine 12/12/2023 8:00 PM EST MAGNESIUM Routine 12/12/2023 8:00 PM EST BASIC METABOLIC PANEL STAT 12/12/2023 8:00 PM EST POCT GLUCOSE Routine 12/12/2023 7:23 PM EST CARDIAC CATHETERIZATION Routine 12/12/19 7:06 PM EST EKG 12-LEAD Routine 12/12/2023 7:[address] elevation myocardial infarction involving left circumflex coronary artery BMP W/FASTING GLUCOSE Routine 12/12/2023 6:30 PM EST HEMOGRAM Routine 12/12/2023 6:30 PM EST DIFFERENTIAL, AUTOMATED Routine 12/12/19 6:30 PM EST BETA HYDROXYBUTYRATE Routine 12/12/2023 6:30 PM EST LACTATE, WHOLE BLOOD Routine 12/12/2023 6:30 PM EST CBC (WITH DIFF) Routine 12/12/2023 6:30 PM EST POCT GLUCOSE Routine 12/12/2023 6:18 PM EST documented in this encounter Results * POCT Glucose (12/16/2023 3:13 PM EST) Glucose, POC 91 65 - 199 mg/dL [facility] Comment: Supplemental ranges: <140 mg/dL before meals <180 mg/dL all other times of the day Blood 12/16/2023 3:13 PM EST 12/16/2023 3:13 PM EST Narrative Authorizing Provider Result Erwin Wei MD POINT OF CARE TEST ORDERABLES [facility] [place] [address] * (ABNORMAL) POCT Glucose (12/16/2023 11:36 AM EST) Glucose, POC 225(H) 65 - 199 mg/dL [facility] Comment: Supplemental ranges: <140 mg/dL before meals <180 mg/dL all other times of the day Blood 12/16/2023 11:3 6 AM EST 12/16/2023 11:36 AM EST Abram Wei MD POINT OF CARE TEST ORDERABLES Performing Organization Address City/[facility] Co de Phone Number [facility] [place] [address] * POCT Glucose (12/16/2023 7:18 AM EST) Glucose, POC 179 65 - 199 mg/dL [facility] Comment: Supplemental ranges: <140 mg/dL before meals <180 mg/dL all other times of the day Blood 12/16/2023 7:18 AM EST 12/16/2023 7:18 AM EST Narrative Authorizing Provider Result Erwin Wei MD POINT OF CARE TEST ORDERABLES Performing Organization Address City/[facility] Co de Phone Number [facility] [place] [address] * POCT Glucose (12/16/2023 5:02 AM EST) Glucose, POC 109 65 - 199 mg/dL [facility] Comment: Supplemental ranges: <140 mg/dL before meals <180 mg/dL all other times of the day Blood 12/16/2023 5:02 AM EST 12/16/2023 5:02 AM EST Abram Wei MD POINT [place] [address] * (ABNORMAL) Differential, Automated (12/16/2023 4:01 AM EST) Neutrophil % 60.2 % [facility] Neutrophil Absolute 8.78(H) 1.70 - 6.10 x10(3)/mc L [facility] Lymph % 27.2 % [facility] Lymphocytes Abs 4.0(H) 0.9 - 3.2 x10(3)/mc L [facility] Monocyte % 11.8 % [facility] Monocyte Abs 1.7(H) 0.3 - 0.9 x10(3)/mc L [facility] Eos % 0.1 % [facility] Eosinophils Abs 0.0 0.0 - 0.4 x10(3)/mc L [facility] Basophil % 0.3 % [facility] Baso Absolute 0.0 0.0 - 0.1 x10(3)/mc L [facility] Immature Gran % 0.40 % [facility] Comment: Immature granulocytes(IG's)percentage and absolute count will include metamyelocytes, myelocytes, and promyelocytes. Blood smears from CBCs yielding IG's will be scanned manually for concordance. If this scan disagrees with the automated IG or if promyelocytes are noted, a manual differential will be performed. Immature Gran Absolute 0.06(H) 0.00 - 0.04 x10(3)/mc L [facility] Blood 12/16/2023 4:01 AM EST 12/16/2023 4:12 AM EST Narrative Resulting Agency Comment Spec In Lab John Huitron MD [place] [address] * (ABNORMAL) Hemogram (12/16/2023 4:01 AM EST) White Blood Cell 14.6(H) 4.0 - 9.5 x10(3)/mc L [facility] Red Blood Cell 4.78 4.58 - 5.54 x10(6)/mc L [facility] Hemoglobin 13.9 13.7 - 16.5 g/dL [facility] Hematocrit 41.0 40.5 - 48.5 % [facility] Mean Cell Volume 85.8 82.9 - 93.1 fL [facility] Mean Cell Hemoglobin 29.1 27.5 - 32.1 pg [facility] Mean Cell Hemoglobin Concentration 33.9 32.0 - 35.7 g/dL [facility] Platelet 256 145 - 357 x10(3)/mc L [facility] RDW Standard Deviation 38.1 36.0 - 45.0 fL [facility] RDW coefficient of variation 12.1 11.4 - 13.8 % [facility] Mean Platelet Volume 10.4 7.6 - 12.9 fL [facility] NRBC% auto 0.0 % [facility] NRBC Absolute 0.000 0.000 - 0.000 x10(3)/mc L [facility] Blood 12/16/2023 4:01 AM EST 12/16/2023 4:12 AM EST Narrative Resulting Agency Comment Spec In Lab John Huitron MD HEMATOLOGY ORDERABLE S Performing Organization Address City/State/[facility] Co de Phone Number [facility] [place] [address] * (ABNORMAL) Basic Metabolic Panel (non-fasting) (12/16/2023 4:01 AM EST) Glucose 110 65 - 199 mg/dL [facility] Comment:Diabetes: >=200 mg/d L plus symptoms Blood Urea Nitrogen 26(H) 10 - 20 mg/dL [facility] Creatinine 0.85 0.80 - 1.50 mg/dL [facility] Sodium 133(L) 135 - 145 mmol/L [facility] Potassium 3.4(L) 3.5 - 5.0 mmol/L [facility] Comment: Please note: ??Patients with WBC >100,000 may have falsely elevated Potassium levels. ??For accurate Potassium quantification in these patients send serum separator tube (gold top) for subsequent determinations. ??Contact the Clinical Chemistry Laboratory if there are any questions. Chloride 97(L) 98 - 107 mmol/L [facility] Carbon Dioxide 25 22 - 31 mmol/L [facility] Anion Gap 11 5 - 15 mmol/L [facility] Calcium 8.9 8.5 - 10.5 mg/dL [facility] Est Glomerular Filtration Rate 99 >=60 mL/min/1. 73 m?? [facility] Comment: This patient's estimated GFR was [...] Lab Abram Wei MD CHEMISTRY ORDERABLE S Performing Organization Address City/[facility]/ZIP Co de Phone Number [facility] [place] [address] * POCT Glucose (12/16/2023 12:25 AM EST) Glucose, POC 188 65 - 199 mg/dL [facility] Comment: Supplemental ranges: <140 mg/dL before meals <180 mg/dL all other times of the day Blood 12/16/2023 12:2 5 AM EST 12/16/2023 12:25 AM EST Abram Wei MD POINT OF CARE TEST ORDERABLES Performing Organization Address City/[facility]/ZIP Co de Phone Number [facility] [place] [address] * POCT Glucose (12/15/2023 7:52 PM EST) Glucose, POC 151 65 - 199 mg/dL [facility] Comment: Supplemental ranges: <140 mg/dL before meals <180 mg/dL all other times of the day Blood 12/15/2023 7:52 PM EST 12/15/2023 7:52 PM EST Abram Wei MD POINT OF CARE TEST ORDERABLES [facility] [place] [address] * POCT Glucose (12/15/2023 4:47 PM EST) Glucose, POC 188 65 - 199 mg/dL [facility] Comment: Supplemental ranges: <140 mg/dL before meals <180 mg/dL all other times of the day Blood 12/15/2023 4:47 PM EST 12/15/2023 4:47 PM EST Abram Wei MD POINT OF CARE TEST ORDERABLES Performing Organization Address [facility] Co de Phone Number [facility] [place] [address] * Beta Hydroxybutyrate (12/15/2023 12:53 PM EST) Beta-hydroxybuturat e 0.19 0.00 - 0.30 mmol/L [facility] Comment: This test has not been cleared by the [place] FDA. Performance characteristics of this test were determined by [facility] in accordance with CLIA requirements. This laboratory is qualified under CLIA to perform high-complexity testing. Blood 12/15/2023 12:5 3 PM EST 12/15/2023 1:10 PM EST Narrative Resulting Agency Comment Spec In Lab Frances Eisenberg MD CHEMISTRY ORDERABLES Performing Organization Address City/[facility]/ZIP Co de Phone Number [facility] [place] [address] * (ABNORMAL) Basic Metabolic Panel (non-fasting) (12/15/2023 12:53 PM EST) Glucose 166 65 - 199 mg/dL [facility] Comment:Diabetes: >=200 mg/d L plus symptoms Blood Urea Nitrogen 24(H) 10 - 20 mg/dL [facility] Creatinine 0.84 0.80 - 1.50 mg/dL [facility] Sodium 132(L) 135 - 145 mmol/L [facility] Potassium 3.6 3.5 - 5.0 mmol/L [facility] Comment: Please note: ??Patients with WBC >100,000 may have falsely elevated Potassium levels. ??For accurate Potassium quantification in these patients send serum separator tube (gold top) for subsequent determinations. ??Contact the Clinical Chemistry Laboratory if there are any questions. Chloride 94(L) 98 - 107 mmol/L [facility] Carbon Dioxide 25 22 - 31 mmol/L [facility] Anion Gap 13 5 - 15 mmol/L [facility] Calcium 9.1 8.5 - 10.5 mg/dL [facility] Est Glomerular Filtration Rate 99 >=60 mL/min/1. 73 m?? [facility] Comment: This patient's estimated GFR was [...] and symptoms in addition to eGFR. Blood 12/15/2023 12:5 3 PM EST 12/15/2023 1:10 PM EST Narrative Resulting Agency Comment Spec In Lab Frances Eisenberg MD CHEMISTRY ORDERABLES [facility] [place] [address] * POCT Glucose (12/15/2023 11:39 AM EST) Glucose, POC 174 65 - 199 mg/dL [facility] Comment: Supplemental ranges: <140 mg/dL before meals <180 mg/dL all other times of the day Blood 12/15/2023 11:3 9 AM EST 12/15/2023 11:39 AM EST Abram Wei MD POINT OF CARE TEST ORDERABLES Performing Organization Address [facility] Co de Phone Number [facility] [place] [address] * (ABNORMAL) Beta Hydroxybutyrate (12/15/2023 9:09 AM EST) Beta-hydroxybuturat e 0.42(H) 0.00 - 0.30 mmol/L [facility] Comment: This test has not been cleared by the [place] FDA. Performance characteristics of this test were determined by [facility] in accordance with CLIA requirements. This laboratory is qualified under CLIA to perform high-complexity testing. Blood 12/15/2023 9:09 AM EST 12/15/2023 9:15 AM EST Narrative Resulting Agency Comment Spec In Lab Frances Eisenberg MD CHEMISTRY ORDERABLES Performing Organization Address [facility] Co de Phone Number [facility] [place] [address] * (ABNORMAL) Basic Metabolic Panel (non-fasting) (12/15/2023 9:09 AM EST) Glucose 283(H) 65 - 199 mg/dL [facility] Comment:Diabetes: >=200 mg/d L plus symptoms Blood Urea Nitrogen 26(H) 10 - 20 mg/dL [facility] Creatinine 0.78(L) 0.80 - 1.50 mg/dL [facility] Sodium 132(L) 135 - 145 mmol/L [facility] Potassium 3.4(L) 3.5 - 5.0 mmol/L [facility] Comment: Please note: ??Patients with WBC >100,000 may have falsely elevated Potassium levels. ??For accurate Potassium quantification in these patients send serum separator tube (gold top) for subsequent determinations. ??Contact the Clinical Chemistry Laboratory if there are any questions. Chloride 94(L) 98 - 107 mmol/L [facility] Carbon Dioxide 24 22 - 31 mmol/L [facility] Anion Gap 14 5 - 15 mmol/L [facility] Calcium 9.1 8.5 - 10.5 mg/dL [facility] Est Glomerular Filtration Rate 101 >=60 mL/min/1. 73 m?? [facility] Comment: This patient's estimated GFR was [...] and symptoms in addition to eGFR. Blood 12/15/2023 9:09 AM EST 12/15/2023 9:15 AM EST Narrative Resulting Agency Comment Spec In Lab Frances Eisenberg MD CHEMISTRY ORDERABLES [facility] [place] [address] * POCT Glucose (12/15/2023 7:15 AM EST) Glucose, POC 133 65 - 199 mg/dL [facility] Comment: Supplemental ranges: <140 mg/dL before meals <180 mg/dL all other times of the day Blood 12/15/2023 7:15 AM EST 12/15/2023 7:15 AM EST Abram Wei MD POINT OF CARE TEST ORDERABLES [facility] [place] [address] * Magnesium (12/15/2023 4:03 AM EST) Magnesium 0.89 0.69 - 1.07 mmol/L [facility] Blood Venous Draw / Unknown 12/15/2023 4:03 AM EST 12/15/2023 4:45 AM EST Narrative Resulting Agency Comment Spec In Lab Ryan Salas MD CHEMISTRY ORDERABLES Performing Organization Address [facility] [place] [address] * Scan, Peripheral Blood (12/15/2023 4:03 AM EST) Plat estimate Normal [facility] RBC Morphology Normal [facility] Blood 12/15/2023 4:03 AM EST 12/15/2023 4:42 AM EST Narrative Resulting Agency Comment Spec In Lab John Huitron MD HEMATOLOGY ORDERABLE S Performing Organization Address [facility] [place] [address] * (ABNORMAL) Differential, Automated (12/15/2023 4:03 AM EST) [facility] Neutrophil % 61.9 % [facility] Neutrophil Absolute 11.35(H) 1.70 - 6.10 x10(3)/mc L [facility] Lymph % 26.6 % [facility] Lymphocytes Abs 4.9(H) 0.9 - 3.2 x10(3)/mc L [facility] Monocyte % 10.4 % [facility] Monocyte Abs 1.9(H) 0.3 - 0.9 x10(3)/mc L [facility] Eos % 0.3 % [facility] Eosinophils Abs 0.0 0.0 - 0.4 x10(3)/mc L [facility] Basophil % 0.2 % [facility] Baso Absolute 0.0 0.0 - 0.1 x10(3)/mc L [facility] Immature Gran % 0.60 % [facility] Comment: Immature granulocytes(IG's)percentage and absolute count will include metamyelocytes, myelocytes, and promyelocytes. Blood smears from CBCs yielding IG's will be scanned manually for concordance. If this scan disagrees with the automated IG or if promyelocytes are noted, a manual differential will be performed. Immature Gran Absolute 0.11(H) 0.00 - 0.04 x10(3)/mc L [facility] Blood 12/15/2023 4:03 AM EST 12/15/2023 4:42 AM EST Narrative Resulting Agency Comment Spec In Lab John Huitron MD HEMATOLOGY ORDERABLE S Performing Organization Address City/[facility] Co de Phone Number [facility] [place] [address] * (ABNORMAL) Hemogram (12/15/2023 4:03 AM EST) White Blood Cell 18.3(H) 4.0 - 9.5 x10(3)/mc L [facility] Red Blood Cell 5.27 4.58 - 5.54 x10(6)/mc L [facility] Hemoglobin 15.4 13.7 - 16.5 g/dL [facility] Hematocrit 45.6 40.5 - 48.5 % [facility] Mean Cell Volume 86.5 82.9 - 93.1 fL [facility] Mean Cell Hemoglobin 29.2 27.5 - 32.1 pg [facility] Mean Cell Hemoglobin Concentration 33.8 32.0 - 35.7 g/dL [facility] Platelet 253 145 - 357 x10(3)/mc L [facility] RDW Standard Deviation 39.6 36.0 - 45.0 fL [facility] RDW coefficient of variation 12.5 11.4 - 13.8 % [facility] Mean Platelet Volume 10.8 7.6 - 12.9 fL [facility] NRBC% auto 0.0 % [facility] NRBC Absolute 0.000 0.000 - 0.000 x10(3)/mc L [facility] Blood 12/15/2023 4:03 AM EST 12/15/2023 4:42 AM EST Narrative Resulting Agency Comment Spec In Lab John Huitron MD HEMATOLOGY ORDERABLE S Performing Organization Address City/[facility]/ZIP Co de Phone Number [facility] [place] [address] * (ABNORMAL) Basic Metabolic Panel (non-fasting) (12/15/2023 4:03 AM EST) Glucose 121 65 - 199 mg/dL [facility] Comment:Diabetes: >=200 mg/d L plus symptoms Blood Urea Nitrogen 26(H) 10 - 20 mg/dL [facility] Creatinine 0.88 0.80 - 1.50 mg/dL [facility] Sodium 132(L) 135 - 145 mmol/L [facility] Potassium 3.5 3.5 - 5.0 mmol/L [facility] Comment: Please note: ??Patients with WBC >100,000 may have falsely elevated Potassium levels. ??For accurate Potassium quantification in these patients send serum separator tube (gold top) for subsequent determinations. ??Contact the Clinical Chemistry Laboratory if there are any questions. Chloride 94(L) 98 - 107 mmol/L [facility] Carbon Dioxide 24 22 - 31 mmol/L [facility] Anion Gap 14 5 - 15 mmol/L [facility] Calcium 9.2 8.5 - 10.5 mg/dL [facility] Est Glomerular Filtration Rate 98 >=60 mL/min/1. 73 m?? [facility] Comment: This patient's estimated GFR was [...] and symptoms in addition to eGFR. Blood 12/15/2023 4:03 AM EST 12/15/2023 4:44 AM EST Narrative Resulting Agency Comment Spec In Lab Frances Eisenberg MD CHEMISTRY ORDERABLES [facility] [place] [address] * (ABNORMAL) Beta Hydroxybutyrate (12/15/2023 4:03 AM EST) Beta-hydroxybuturat e 0.63(H) 0.00 - 0.30 mmol/L [facility] Comment: This test has not been cleared by the [place] FDA. Performance characteristics of this test were determined by [facility] in accordance with CLIA requirements. This laboratory is qualified under CLIA to perform high-complexity testing. Blood 12/15/2023 4:03 AM EST 12/15/2023 4:44 AM EST Narrative Resulting Agency Comment Spec In Lab Frances Eisenberg MD CHEMISTRY ORDERABLES Performing Organization Address City/[facility]/ZIP Co de Phone Number [facility] [address] * POCT Glucose (12/15/2023 3:30 AM EST) Glucose, POC 120 65 - 199 mg/dL [facility] Comment: Supplemental ranges: <140 mg/dL before meals <180 mg/dL all other times of the day Blood 12/15/2023 3:30 AM EST 12/15/2023 3:30 AM EST Abram Wei MD POINT OF CARE TEST ORDERABLES Performing Organization Address City/[facility] Co de Phone Number [facility] [place] [address] * POCT Glucose (12/15/2023 12:09 AM EST) Glucose, POC 114 65 - 199 mg/dL [facility] Comment: Supplemental ranges: <140 mg/dL before meals <180 mg/dL all other times of the day Blood 12/15/2023 12:0 9 AM EST 12/15/2023 12:09 AM EST Abram Wei MD POINT OF CARE TEST ORDERABLES Performing Organization Address City/[facility] Co de Phone Number [facility] [place] [address] * POCT Glucose (12/14/2023 11:21 PM EST) Glucose, POC 109 65 - 199 mg/dL [facility] Comment: Supplemental ranges: <140 mg/dL before meals <180 mg/dL all other times of the day Blood 12/14/2023 11:2 1 PM EST 12/14/2023 11:21 PM EST Abram Wei MD POINT OF CARE TEST ORDERABLES Performing Organization Address City/[facility]/ZIP Co de Phone Number [facility] [place] [address] * POCT Glucose (12/14/2023 10:20 PM EST) Glucose, POC 138 65 - 199 mg/dL [facility] Comment: Supplemental ranges: <140 mg/dL before meals <180 mg/dL all other times of the day Blood 12/14/2023 10:2 0 PM EST 12/14/2023 10:20 PM EST Abram Wei MD POINT OF CARE TEST ORDERABLES Performing Organization Address [facility] Co de Phone Number [facility] [place] [address] * (ABNORMAL) Beta Hydroxybutyrate (12/14/2023 9:55 PM EST) Pathologist [facility] Beta-hydroxybuturat e 0.33(H) 0.00 - 0.30 mmol/L [facility] Comment: This test has not been cleared by the [place] FDA. Performance characteristics of this test were determined by [facility] in accordance with CLIA requirements. This laboratory is qualified under CLIA to perform high-complexity testing. Blood 12/14/2023 9:55 PM EST 12/14/2023 10:04 PM EST Narrative Resulting Agency Comment Spec In Lab Frances Eisenberg MD CHEMISTRY ORDERABLES Performing Organization Address City/[facility]/ZIP Co de Phone Number [facility] [place] [address] * (ABNORMAL) Basic Metabolic Panel (non-fasting) (12/14/2023 9:55 PM EST) Glucose 148 65 - 199 mg/dL [facility] Comment:Diabetes: >=200 mg/d L plus symptoms Blood Urea Nitrogen 28(H) 10 - 20 mg/dL [facility] Creatinine 0.91 0.80 - 1.50 mg/dL [facility] Sodium 132(L) 135 - 145 mmol/L [facility] Potassium 3.6 3.5 - 5.0 mmol/L [facility] Comment: Please note: ??Patients with WBC >100,000 may have falsely elevated Potassium levels. ??For accurate Potassium quantification in these patients send serum separator tube (gold top) for subsequent determinations. ??Contact the Clinical Chemistry Laboratory if there are any questions. Chloride 96(L) 98 - 107 mmol/L [facility] Carbon Dioxide 23 22 - 31 mmol/L [facility] Anion Gap 13 5 - 15 mmol/L [facility] Calcium 8.9 8.5 - 10.5 mg/dL [facility] Est Glomerular Filtration Rate 96 >=60 mL/min/1. 73 m?? [facility] Comment: This patient's estimated GFR was [...] and symptoms in addition to eGFR. Blood 12/14/2023 9:55 PM EST 12/14/2023 10:04 PM EST Narrative Resulting Agency Comment Spec In Lab Frances Eisenberg MD CHEMISTRY ORDERABLES [facility] [place] [address] * POCT Glucose (12/14/2023 9:15 PM EST) Glucose, POC 167 65 - 199 mg/dL [facility] Comment: Supplemental ranges: <140 mg/dL before meals <180 mg/dL all other times of the day Blood 12/14/2023 9:15 PM EST 12/14/2023 9:15 PM EST Narrative Authorizing Provider Result Erwin Wei MD POINT OF CARE TEST ORDERABLES Performing Organization Address City/[facility] Co de Phone Number [facility] [place] [address] * (ABNORMAL) POCT Glucose (12/14/2023 8:23 PM EST) Glucose, POC 222(H) 65 - 199 mg/dL [facility] Comment: Supplemental ranges: <140 mg/dL before meals <180 mg/dL all other times of the day Blood 12/14/2023 8:23 PM EST 12/14/2023 8:23 PM EST Narrative Authorizing Provider Result Erwin Wei MD POINT OF CARE TEST ORDERABLES Performing Organization Address [facility] Co de Phone Number [facility] [place] [address] * (ABNORMAL) POCT Glucose (12/14/2023 7:15 PM EST) Glucose, POC 272(H) 65 - 199 mg/dL [facility] Comment: Supplemental ranges: <140 mg/dL before meals <180 mg/dL all other times of the day Blood 12/14/2023 7:15 PM EST 12/14/2023 7:15 PM EST Narrative Authorizing Provider Result Erwin Wei MD POINT OF CARE TEST ORDERABLES Performing Organization Address City/[facility] Co de Phone Number [facility] [place] [address] * (ABNORMAL) Beta Hydroxybutyrate (12/14/2023 6:02 PM EST) Beta-hydroxybuturat e 0.75(H) 0.00 - 0.30 mmol/L [facility] Comment: This test has not been cleared by the [place] FDA. Performance characteristics of this test were determined by [facility] in accordance with CLIA requirements. This laboratory is qualified under CLIA to perform high-complexity testing. Blood 12/14/2023 6:02 PM EST 12/14/2023 6:10 PM EST Narrative Resulting Agency Comment Spec In Lab Frances Eisenberg MD CHEMISTRY ORDERABLES [facility] [place] [address] * (ABNORMAL) Basic Metabolic Panel (non-fasting) (12/14/2023 6:02 PM EST) Glucose 246(H) 65 - 199 mg/dL [facility] Comment:Diabetes: >=200 mg/d L plus symptoms Blood Urea Nitrogen 26(H) 10 - 20 mg/dL [facility] Creatinine 0.83 0.80 - 1.50 mg/dL [facility] Sodium 130(L) 135 - 145 mmol/L [facility] Potassium 3.8 3.5 - 5.0 mmol/L [facility] Comment: Please note: ??Patients with WBC >100,000 may have falsely elevated Potassium levels. ??For accurate Potassium quantification in these patients send serum separator tube (gold top) for subsequent determinations. ??Contact the Clinical Chemistry Laboratory if there are any questions. Chloride 95(L) 98 - 107 mmol/L [facility] Carbon Dioxide 21(L) 22 - 31 mmol/L [facility] Anion Gap 14 5 - 15 mmol/L [facility] Calcium 8.9 8.5 - 10.5 mg/dL [facility] Est Glomerular Filtration Rate 100 >=60 mL/min/1. 73 m?? [facility] Comment: This patient's estimated GFR was [...] and symptoms in addition to eGFR. Blood 12/14/2023 6:02 PM EST 12/14/2023 6:10 PM EST Narrative Resulting Agency Comment Spec In Lab Frances Eisenberg MD CHEMISTRY ORDERABLES Performing Organization Address [facility] Co de Phone Number [facility] [place] [address] * POCT Glucose (12/14/2023 5:26 PM EST) Glucose, POC 197 65 - 199 mg/dL [facility] Comment: Supplemental ranges: <140 mg/dL before meals <180 mg/dL all other times of the day Blood 12/14/2023 5:26 PM EST 12/14/2023 5:26 PM EST Abram Wei MD POINT OF CARE TEST ORDERABLES Performing Organization Address [facility] Co de Phone Number [facility] [place] [address] * POCT Glucose (12/14/2023 3:47 PM EST) Glucose, POC 142 65 - 199 mg/dL [facility] Comment: Supplemental ranges: <140 mg/dL before meals <180 mg/dL all other times of the day Blood 12/14/2023 3:47 PM EST 12/14/2023 3:47 PM EST Abram Wei MD POINT OF CARE TEST ORDERABLES Performing Organization Address [facility] Co de Phone Number [facility] [place] [address] * POCT Glucose (12/14/2023 2:35 PM EST) Glucose, POC 140 65 - 199 mg/dL [facility] Comment: Supplemental ranges: <140 mg/dL before meals <180 mg/dL all other times of the day Blood 12/14/2023 2:35 PM EST 12/14/2023 2:35 PM EST Abram Wei MD POINT OF CARE TEST ORDERABLES Performing Organization Address [facility] Co de Phone Number [facility] [place] [address] * C-peptide (12/14/2023 2:11 PM EST) C-Peptide 1.4 1.1 - 4.4 ng/mL [facility] Comment:Reference intervals derived from fasting individuals Blood 12/14/2023 2:11 PM EST 12/14/2023 2:52 PM EST Narrative Resulting Agency Comment Spec In Lab Janina Moon [employer] CHEMISTRY ORDERABLE S Performing Organization Address [facility] de Phone Number [facility] [address] * (ABNORMAL) Glucose, fasting (12/14/2023 2:11 PM EST) Glucose Fasting 145(H) 65 - 99 mg/dL [facility] Comment: ?Fasting* Glucose Interpretive Criteria Normal ?65-99 mg/dL Impaired Fasting glucose ?100-125 mg/dL Consistent with Diabetes Mellitus ? >or= 126 mg/dL *Fasting is defined as no caloric intake for at least 8 hours In the absence of unequivocal hyperglycemia a plasma glucose value of >or= 126 mg/dL should be repeated on a subsequent day. Diagnosis and Classification of Diabetes Mellitus, Position Statement from the [employer] [employer]. ??Diabetes Care, Volume 33, Supplement 1, Nov 2009 Blood 12/14/2023 2:11 PM EST 12/14/2023 2:52 PM EST Narrative Resulting Agency Comment Spec In Lab Janina Moon [employer] CHEMISTRY ORDERABLE S Performing Organization Address [facility] Co de Phone Number [facility] [address] * (ABNORMAL) Beta Hydroxybutyrate (12/14/2023 2:11 PM EST) Beta-hydroxybuturat e 0.61(H) 0.00 - 0.30 mmol/L [facility] Comment: This test has not been cleared by the [place] FDA. Performance characteristics of this test were determined by [facility] in accordance with CLIA requirements. This laboratory is qualified under CLIA to perform high-complexity testing. Blood 12/14/2023 2:11 PM EST 12/14/2023 2:52 PM EST Narrative Resulting Agency Comment Spec In Lab Frances Eisenberg MD CHEMISTRY ORDERABLES [facility] [place] [address] * (ABNORMAL) Basic Metabolic Panel (non-fasting) (12/14/2023 2:11 PM EST) Glucose 147 65 - 199 mg/dL [facility] Comment:Diabetes: >=200 mg/d L plus symptoms Blood Urea Nitrogen 24(H) 10 - 20 mg/dL [facility] Creatinine 0.79(L) 0.80 - 1.50 mg/dL [facility] Sodium 134(L) 135 - 145 mmol/L [facility] Potassium 3.8 3.5 - 5.0 mmol/L [facility] Comment: Please note: ??Patients with WBC >100,000 may have falsely elevated Potassium levels. ??For accurate Potassium quantification in these patients send serum separator tube (gold top) for subsequent determinations. ??Contact the Clinical Chemistry Laboratory if there are any questions. Chloride 97(L) 98 - 107 mmol/L [facility] Carbon Dioxide 22 22 - 31 mmol/L [facility] Anion Gap 15 5 - 15 mmol/L [facility] Calcium 9.1 8.5 - 10.5 mg/dL [facility] Est Glomerular Filtration Rate 101 >=60 mL/min/1. 73 m?? [facility] Comment: This patient's estimated GFR was [...] and symptoms in addition to eGFR. Blood 12/14/2023 2:11 PM EST 12/14/2023 2:52 PM EST Narrative Resulting Agency Comment Spec In Lab Frances Eisenberg MD CHEMISTRY ORDERABLES [facility] [place] [address] * POCT Glucose (12/14/2023 1:19 PM EST) Glucose, POC 153 65 - 199 mg/dL [facility] Comment: Supplemental ranges: <140 mg/dL before meals <180 mg/dL all other times of the day Blood 12/14/2023 1:19 PM EST 12/14/2023 1:19 PM EST Jon Root MD POINT OF CARE T EST ORDERABLES Performing Organization Address City/[facility] Co de Phone Number [facility] [place] [address] * POCT Glucose (12/14/2023 12:13 PM EST) Glucose, POC 139 65 - 199 mg/dL [facility] Comment: Supplemental ranges: <140 mg/dL before meals <180 mg/dL all other times of the day Blood 12/14/2023 12:1 3 PM EST 12/14/2023 12:13 PM EST Jon Root MD POINT OF CARE T EST ORDERABLES Performing Organization Address City/[facility] Co de Phone Number [facility] [place] [address] * POCT Glucose (12/14/2023 10:55 AM EST) Glucose, POC 185 65 - 199 mg/dL [facility] Comment: Supplemental ranges: <140 mg/dL before meals <180 mg/dL all other times of the day Blood 12/14/2023 10:5 5 AM EST 12/14/2023 10:55 AM EST Jon Root MD POINT OF CARE T EST ORDERABLES Performing Organization Address [facility] Co de Phone Number [facility] [place] [address] * (ABNORMAL) Beta Hydroxybutyrate (12/14/2023 9:59 AM EST) Beta-hydroxybuturat e 0.52(H) 0.00 - 0.30 mmol/L [facility] Comment: This test has not been cleared by the US FDA. Performance characteristics of this test were determined by [facility] in accordance with CLIA requirements. This laboratory is qualified under CLIA to perform high-complexity testing. Blood 12/14/2023 9:59 AM EST 12/14/2023 10:09 AM EST Narrative Resulting Agency Comment Spec In Lab Frances Eisenberg MD CHEMISTRY ORDERABLES Performing Organization Address [facility] Co de Phone Number [facility] [place] [address] * (ABNORMAL) Basic Metabolic Panel (non-fasting) (12/14/2023 9:59 AM EST) Glucose 212(H) 65 - 199 mg/dL [facility] Comment:Diabetes: >=200 mg/d L plus symptoms Blood Urea Nitrogen 24(H) 10 - 20 mg/dL [facility] Creatinine 0.89 0.80 - 1.50 mg/dL [facility] Sodium 132(L) 135 - 145 mmol/L [facility] Potassium 3.8 3.5 - 5.0 mmol/L [facility] Comment: Please note: ??Patients with WBC >100,000 may have falsely elevated Potassium levels. ??For accurate Potassium quantification in these patients send serum separator tube (gold top) for subsequent determinations. ??Contact the Clinical Chemistry Laboratory if there are any questions. Chloride 96(L) 98 - 107 mmol/L [facility] Carbon Dioxide 24 22 - 31 mmol/L [facility] Anion Gap 12 5 - 15 mmol/L [facility] Calcium 9.1 8.5 - 10.5 mg/dL [facility] Est Glomerular Filtration Rate 97 >=60 mL/min/1. 73 m?? [facility] Comment: This patient's estimated GFR was [...] and symptoms in addition to eGFR. Blood 12/14/2023 9:59 AM EST 12/14/2023 10:09 AM EST Narrative Resulting Agency Comment Spec In Lab Frances Eisenberg MD CHEMISTRY ORDERABLES Performing Organization Address City/[facility]/ZIP Co de Phone Number [facility] [place] [address] * (ABNORMAL) POCT Glucose (12/14/2023 9:42 AM EST) Glucose, POC 247(H) 65 - 199 mg/dL [facility] Comment: Supplemental ranges: <140 mg/dL before meals <180 mg/dL all other times of the day Blood 12/14/2023 9:42 AM EST 12/14/2023 9:42 AM EST Jon Root MD POINT OF CARE T EST ORDERABLES [facility] [place] [address] * (ABNORMAL) POCT Glucose (12/14/2023 8:43 AM EST) Glucose, POC 209(H) 65 - 199 mg/dL [facility] Comment: Supplemental ranges: <140 mg/dL before meals <180 mg/dL all other times of the day Blood 12/14/2023 8:43 AM EST 12/14/2023 8:43 AM EST Jon Root MD POINT OF CARE T EST ORDERABLES [facility] [place] [address] * POCT Glucose (12/14/2023 7:43 AM EST) Glucose, POC 183 65 - 199 mg/dL [facility] Comment: Supplemental ranges: <140 mg/dL before meals <180 mg/dL all other times of the day Blood 12/14/2023 7:43 AM EST 12/14/2023 7:43 AM EST Jon Root MD POINT OF CARE T EST ORDERABLES Performing Organization Address City/[facility] Co de Phone Number [facility] [place] [address] * POCT Glucose (12/14/2023 6:27 AM EST) Glucose, POC 167 65 - 199 mg/dL [facility] Comment: Supplemental ranges: <140 mg/dL before meals <180 mg/dL all other times of the day Blood 12/14/2023 6:27 AM EST 12/14/2023 6:27 AM EST Jon Root MD POINT OF CARE T EST ORDERABLES Performing Organization Address City/State/[facility] Co de Phone Number [facility] [place] [address] * POCT Glucose (12/14/2023 5:30 AM EST) Glucose, POC 190 65 - 199 mg/dL [facility] Comment: Supplemental ranges: <140 mg/dL before meals <180 mg/dL all other times of the day Blood 12/14/2023 5:30 AM EST 12/14/2023 5:30 AM EST Jon Root MD POINT OF CARE T EST ORDERABLES [facility] [place] [address] * POCT Glucose (12/14/2023 4:38 AM EST) Glucose, POC 179 65 - 199 mg/dL [facility] Comment: Supplemental ranges: <140 mg/dL before meals <180 mg/dL all other times of the day Blood 12/14/2023 4:38 AM EST 12/14/2023 4:38 AM EST Jon Root MD POINT OF CARE T EST ORDERABLES Performing Organization Address [facility] Co de Phone Number [facility] [address] * (ABNORMAL) BMP w/fasting Glucose (12/14/2023 3:36 AM EST) Glucose Fasting 172(H) 65 - 99 mg/dL [facility] Comment: ?Fasting* Glucose Interpretive Criteria Normal ?65-99 mg/dL Impaired Fasting glucose ?100-125 mg/dL Consistent with Diabetes Mellitus ? >or= 126 mg/dL *Fasting is defined as no caloric intake for at least 8 hours In the absence of unequivocal hyperglycemia a plasma glucose value of >or= 126 mg/dL should be repeated on a subsequent day. Diagnosis and Classification of Diabetes Mellitus, Position Statement from the [place] [employer]. ??Diabetes Care, Volume 33, Supplement 1, Nov 2009 Blood Urea Nitrogen 27(H) 10 - 20 mg/dL [facility] Creatinine 0.81 0.80 - 1.50 mg/dL [facility] Sodium 133(L) 135 - 145 mmol/L [facility] Potassium 3.7 3.5 - 5.0 mmol/L [facility] Comment: Please note: ??Patients with WBC >100,000 may have falsely elevated Potassium levels. ??For accurate Potassium quantification in these patients send serum separator tube (gold top) for subsequent determinations. ??Contact the Clinical Chemistry Laboratory if there are any questions. Chloride 100 98 - 107 mmol/L [facility] Carbon Dioxide 19(L) 22 - 31 mmol/L [facility] Anion Gap 14 5 - 15 mmol/L [facility] Calcium 8.9 8.5 - 10.5 mg/dL [facility] Est Glomerular Filtration Rate 100 >=60 mL/min/1. 73 m?? [facility] Comment: This patient's estimated GFR was [...] and symptoms in addition to eGFR. Blood 12/14/2023 3:36 AM EST 12/14/2023 4:13 AM EST Narrative Resulting Agency Comment Spec In Lab John Huitron MD CHEMISTRY ORDERABLES [facility] [place] [address] * (ABNORMAL) Beta Hydroxybutyrate (12/14/2023 3:36 AM EST) Beta-hydroxybuturat e 0.56(H) 0.00 - 0.30 mmol/L [facility] Comment: This test has not been cleared by the [place] FDA. Performance characteristics of this test were determined by [facility] in accordance with CLIA requirements. This laboratory is qualified under CLIA to perform high-complexity testing. Blood 12/14/2023 3:36 AM EST 12/14/2023 4:13 AM EST Narrative Resulting Agency Comment Spec In Lab Frances Eisenberg MD CHEMISTRY ORDERABLES Performing Organization Address [facility] Co de Phone Number [facility] [place] [address] * POCT Glucose (12/14/2023 3:26 AM EST) Glucose, POC 174 65 - 199 mg/dL [facility] Comment: Supplemental ranges: <140 mg/dL before meals <180 mg/dL all other times of the day Blood 12/14/2023 3:26 AM EST 12/14/2023 3:26 AM EST Jon Root MD POINT OF CARE T EST ORDERABLES Performing Organization Address [facility] de Phone Number [facility] [place] [address] * POCT Glucose (12/14/2023 2:20 AM EST) Glucose, POC 143 65 - 199 mg/dL [facility] Comment: Supplemental ranges: <140 mg/dL before meals <180 mg/dL all other times of the day Blood 12/14/2023 2:20 AM EST 12/14/2023 2:20 AM EST Jon Root MD POINT OF CARE T EST ORDERABLES Performing Organization Address [facility] de Phone Number [facility] [place] [address] * POCT Glucose (12/14/2023 1:42 AM EST) Glucose, POC 134 65 - 199 mg/dL [facility] Comment: Supplemental ranges: <140 mg/dL before meals <180 mg/dL all other times of the day Blood 12/14/2023 1:42 AM EST 12/14/2023 1:42 AM EST Jon Root MD POINT OF CARE T EST ORDERABLES Performing Organization Address City/[facility] Co de Phone Number [facility] [place] [address] * POCT Glucose (12/14/2023 12:31 AM EST) Glucose, POC 157 65 - 199 mg/dL [facility] Comment: Supplemental ranges: <140 mg/dL before meals <180 mg/dL all other times of the day Blood 12/14/2023 12:3 1 AM EST 12/14/2023 12:31 AM EST Jon Root MD POINT OF CARE T EST ORDERABLES [facility] [place] [address] * (ABNORMAL) Basic Metabolic Panel (non-fasting) (12/14/2023 12:09 AM EST) Glucose 152 65 - 199 mg/dL [facility] Comment:Diabetes: >=200 mg/d L plus symptoms Blood Urea Nitrogen 29(H) 10 - 20 mg/dL [facility] Creatinine 0.94 0.80 - 1.50 mg/dL [facility] Sodium 134(L) 135 - 145 mmol/L [facility] Potassium 3.7 3.5 - 5.0 mmol/L [facility] Comment: Please note: ??Patients with WBC >100,000 may have falsely elevated Potassium levels. ??For accurate Potassium quantification in these patients send serum separator tube (gold top) for subsequent determinations. ??Contact the Clinical Chemistry Laboratory if there are any questions. Chloride 101 98 - 107 mmol/L [facility] Carbon Dioxide 18(L) 22 - 31 mmol/L [facility] Anion Gap 15 5 - 15 mmol/L [facility] Calcium 9.0 8.5 - 10.5 mg/dL [facility] Est Glomerular Filtration Rate 92 >=60 mL/min/1. 73 m?? [facility] Comment: This patient's estimated GFR was [...] and symptoms in addition to eGFR. Blood Venous Draw / Unknown 12/14/2023 12:09 AM EST 12/14/2023 12:42 AM EST Narrative Resulting Agency Comment Spec In Lab John Huitron MD CHEMISTRY ORDERABLES Performing Organization Address City/[facility]/ZIP Co de Phone Number [facility] [place] [address] * Beta Hydroxybutyrate (12/14/2023 12:09 AM EST) [facility] Beta-hydroxybuturat e 0.27 0.00 - 0.30 mmol/L [facility] Comment: This test has not been cleared by the [place] FDA. Performance characteristics of this test were determined by [facility] in accordance with CLIA requirements. This laboratory is qualified under CLIA to perform high-complexity testing. Blood 12/14/2023 12:0 9 AM EST 12/14/2023 12:42 AM EST Narrative Resulting Agency Comment Spec In Lab Frances Eisenberg MD CHEMISTRY ORDERABLES Performing Organization Address [facility] Co de Phone Number [facility] [place] [address] * POCT Glucose (12/13/2023 11:35 PM EST) Pathologist [facility] Glucose, POC 157 65 - 199 mg/dL [facility] Comment: Supplemental ranges: <140 mg/dL before meals <180 mg/dL all other times of the day Blood 12/13/2023 11:3 5 PM EST 12/13/2023 11:35 PM EST Jon Root MD POINT OF CARE T EST ORDERABLES Performing Organization Address City/[facility] Co de Phone Number [facility] [place] [address] * POCT Glucose (12/13/2023 10:35 PM EST) Glucose, POC 177 65 - 199 mg/dL [facility] Comment: Supplemental ranges: <140 mg/dL before meals <180 mg/dL all other times of the day Blood 12/13/2023 10:3 5 PM EST 12/13/2023 10:35 PM EST Jon Root MD POINT OF CARE T EST ORDERABLES [facility] [place] [address] * POCT Glucose (12/13/2023 9:31 PM EST) Glucose, POC 195 65 - 199 mg/dL [facility] Comment: Supplemental ranges: <140 mg/dL before meals <180 mg/dL all other times of the day Blood 12/13/2023 9:31 PM EST 12/13/2023 9:31 PM EST Jon Root MD POINT OF CARE T EST ORDERABLES Performing Organization Address City/[facility]/ZIP Co de Phone Number [facility] [place] [address] * POCT Glucose (12/13/2023 8:38 PM EST) Glucose, POC 195 65 - 199 mg/dL [facility] Comment: Supplemental ranges: <140 mg/dL before meals <180 mg/dL all other times of the day Blood 12/13/2023 8:38 PM EST 12/13/2023 8:38 PM EST Jon Root MD POINT OF CARE T EST ORDERABLES Performing Organization Address City/[facility] Co de Phone Number [facility] [place] [address] * (ABNORMAL) Basic Metabolic Panel (non-fasting) (12/13/2023 7:56 PM EST) Glucose 206(H) 65 - 199 mg/dL [facility] Comment:Diabetes: >=200 mg/d L plus symptoms Blood Urea Nitrogen 31(H) 10 - 20 mg/dL [facility] Creatinine 1.03 0.80 - 1.50 mg/dL [facility] Sodium 133(L) 135 - 145 mmol/L [facility] Potassium 3.5 3.5 - 5.0 mmol/L [facility] Comment: Please note: ??Patients with WBC >100,000 may have falsely elevated Potassium levels. ??For accurate Potassium quantification in these patients send serum separator tube (gold top) for subsequent determinations. ??Contact the Clinical Chemistry Laboratory if there are any questions. Chloride 99 98 - 107 mmol/L [facility] Carbon Dioxide 19(L) 22 - 31 mmol/L [facility] Anion Gap 15 5 - 15 mmol/L [facility] Calcium 9.0 8.5 - 10.5 mg/dL [facility] Est Glomerular Filtration Rate 83 >=60 mL/min/1. 73 m?? [facility] Comment: This patient's estimated GFR was [...] and symptoms in addition to eGFR. Blood 12/13/2023 7:56 PM EST 12/13/2023 8:15 PM EST Narrative Resulting Agency Comment Spec In Lab Frances Eisenberg MD CHEMISTRY ORDERABLES [facility] [place] [address] * Beta Hydroxybutyrate (12/13/2023 7:56 PM EST) Beta-hydroxybuturat e 0.17 0.00 - 0.30 mmol/L [facility] Comment: This test has not been cleared by the [place] FDA. Performance characteristics of this test were determined by [facility] in accordance with CLIA requirements. This laboratory is qualified under CLIA to perform high-complexity testing. Blood 12/13/2023 7:56 PM EST 12/13/2023 8:15 PM EST Narrative Resulting Agency Comment Spec In Lab Frances Eisenberg MD CHEMISTRY ORDERABLES Performing Organization Address [facility] Co de Phone Number [facility] [place] [address] * Phosphorus (12/13/2023 7:56 PM EST) Phosphorus 4.1 2.5 - 4.5 mg/dL [facility] Blood 12/13/2023 7:56 PM EST 12/13/2023 8:15 PM EST Narrative Resulting Agency Comment Spec In Lab Frances Eisenberg MD CHEMISTRY ORDERABLES Performing Organization Address [facility] de Phone Number [facility] [place] [address] * Magnesium (12/13/2023 7:56 PM EST) Magnesium 0.90 0.69 - 1.07 mmol/L [facility] Blood 12/13/2023 7:56 PM EST 12/13/2023 8:15 PM EST Narrative Resulting Agency Comment Spec In Lab Frances Eisenberg MD CHEMISTRY ORDERABLES Performing Organization Address [facility] de Phone Number [facility] [place] [address] * (ABNORMAL) POCT Glucose (12/13/2023 7:28 PM EST) Glucose, POC 202(H) 65 - 199 mg/dL [facility] Comment: Supplemental ranges: <140 mg/dL before meals <180 mg/dL all other times of the day Blood 12/13/2023 7:28 PM EST 12/13/2023 7:28 PM EST Jon Root MD POINT OF CARE T EST ORDERABLES [facility] [place] [address] * POCT Glucose (12/13/2023 6:34 PM EST) Glucose, POC 178 65 - 199 mg/dL [facility] Comment: Supplemental ranges: <140 mg/dL before meals <180 mg/dL all other times of the day Blood 12/13/2023 6:34 PM EST 12/13/2023 6:34 PM EST Jon Root MD POINT OF CARE T EST ORDERABLES Performing Organization Address [facility] Co de Phone Number [facility] [place] [address] * POCT Glucose (12/13/2023 6:03 PM EST) Glucose, POC 167 65 - 199 mg/dL [facility] Comment: Supplemental ranges: <140 mg/dL before meals <180 mg/dL all other times of the day Blood 12/13/2023 6:03 PM EST 12/13/2023 6:03 PM EST Jon Root MD POINT OF CARE T EST ORDERABLES Performing Organization Address City/[facility] Co de Phone Number [facility] [place] [address] * POCT Glucose (12/13/2023 5:32 PM EST) Glucose, POC 169 65 - 199 mg/dL [facility] Comment: Supplemental ranges: <140 mg/dL before meals <180 mg/dL all other times of the day Blood 12/13/2023 5:32 PM EST 12/13/2023 5:32 PM EST Jon Root MD POINT OF CARE T EST ORDERABLES [facility] [place] [address] * POCT Glucose (12/13/2023 4:58 PM EST) Glucose, POC 134 65 - 199 mg/dL [facility] Comment: Supplemental ranges: <140 mg/dL before meals <180 mg/dL all other times of the day Blood 12/13/2023 4:58 PM EST 12/13/2023 4:58 PM EST Jon Root MD POINT OF CARE T EST ORDERABLES Performing Organization Address City/[facility] Co de Phone Number [facility] [place] [address] * Beta Hydroxybutyrate (12/13/2023 4:06 PM EST) Beta-hydroxybuturat e <0.10 0.00 - 0.30 mmol/L [facility] Comment: This test has not been cleared by the [place] FDA. Performance characteristics of this test were determined by [facility] in accordance with CLIA requirements. This laboratory is qualified under CLIA to perform high-complexity testing. Blood Venous Draw / Unknown 12/13/2023 4:06 PM EST 12/13/2023 4:42 PM EST Narrative Resulting Agency Comment Spec In Lab Dorys Cardoza MD CHEMISTRY ORDERABLES Performing Organization Address City/[facility] Co de Phone Number [facility] [place] [address] * (ABNORMAL) Basic Metabolic Panel (non-fasting) (12/13/2023 4:06 PM EST) Glucose 176 65 - 199 mg/dL [facility] Comment:Diabetes: >=200 mg/d L plus symptoms Blood Urea Nitrogen 33(H) 10 - 20 mg/dL [facility] Creatinine 1.26 0.80 - 1.50 mg/dL [facility] Sodium 134(L) 135 - 145 mmol/L [facility] Potassium 3.8 3.5 - 5.0 mmol/L [facility] Comment: Please note: ??Patients with WBC >100,000 may have falsely elevated Potassium levels. ??For accurate Potassium quantification in these patients send serum separator tube (gold top) for subsequent determinations. ??Contact the Clinical Chemistry Laboratory if there are any questions. Chloride 100 98 - 107 mmol/L [facility] Carbon Dioxide 17(L) 22 - 31 mmol/L [facility] Anion Gap 17(H) 5 - 15 mmol/L [facility] Calcium 9.3 8.5 - 10.5 mg/dL [facility] Est Glomerular Filtration Rate 65 >=60 mL/min/1. 73 m?? [facility] Comment: This patient's estimated GFR was [...] and symptoms in addition to eGFR. Blood 12/13/2023 4:06 PM EST 12/13/2023 4:17 PM EST Narrative Resulting Agency Comment Spec In Lab Frances Eisenberg MD CHEMISTRY ORDERABLES Performing Organization Address City/[facility]/ZIP Co de Phone Number [facility] [place] [address] * POCT Glucose (12/13/2023 3:55 PM EST) Glucose, POC 168 65 - 199 mg/dL [facility] Comment: Supplemental ranges: <140 mg/dL before meals <180 mg/dL all other times of the day Blood 12/13/2023 3:55 PM EST 12/13/2023 3:55 PM EST Jon Root MD POINT OF CARE T EST ORDERABLES [facility] [place] [address] * (ABNORMAL) POCT Glucose (12/13/2023 2:55 PM EST) Glucose, POC 220(H) 65 - 199 mg/dL [facility] Comment: Supplemental ranges: <140 mg/dL before meals <180 mg/dL all other times of the day Blood 12/13/2023 2:55 PM EST 12/13/2023 2:55 PM EST Jon Root MD POINT OF CARE T EST ORDERABLES [facility] [place] [address] * (ABNORMAL) POCT Glucose (12/13/2023 1:56 PM EST) Glucose, POC 245(H) 65 - 199 mg/dL [facility] Comment: Supplemental ranges: <140 mg/dL before meals <180 mg/dL all other times of the day Blood 12/13/2023 1:56 PM EST 12/13/2023 1:56 PM EST Jon Root MD POINT OF CARE T EST ORDERABLES [facility] [place] [address] * (ABNORMAL) POCT Glucose (12/13/2023 1:07 PM EST) Glucose, POC 289(H) 65 - 199 mg/dL [facility] Comment: Supplemental ranges: <140 mg/dL before meals <180 mg/dL all other times of the day Blood 12/13/2023 1:07 PM EST 12/13/2023 1:07 PM EST Jon Root MD POINT OF CARE T EST ORDERABLES [facility] [place] [address] * (ABNORMAL) POCT Glucose (12/13/2023 12:30 PM EST) Glucose, POC 302(H) 65 - 199 mg/dL [facility] Comment: Supplemental ranges: <140 mg/dL before meals <180 mg/dL all other times of the day Blood 12/13/2023 12:3 0 PM EST 12/13/2023 12:30 PM EST Jon Root MD POINT OF CARE T EST ORDERABLES Performing Organization Address [facility] Co de Phone Number [facility] [place] [address] * (ABNORMAL) Beta Hydroxybutyrate (12/13/2023 11:58 AM EST) Beta-hydroxybuturat e 0.71(H) 0.00 - 0.30 mmol/L [facility] Comment: This test has not been cleared by the US FDA. Performance characteristics of this test were determined by [facility] in accordance with CLIA requirements. This laboratory is qualified under CLIA to perform high-complexity testing. Blood 12/13/2023 11:5 8 AM EST 12/13/2023 12:10 PM EST Narrative Resulting Agency Comment Spec In Lab Frances Eisenberg MD CHEMISTRY ORDERABLES Performing Organization Address [facility] de Phone Number [facility] [place] [address] * (ABNORMAL) Basic Metabolic Panel (non-fasting) (12/13/2023 11:58 AM EST) Glucose 324(H) 65 - 199 mg/dL [facility] Comment:Diabetes: >=200 mg/d L plus symptoms Blood Urea Nitrogen 34(H) 10 - 20 mg/dL [facility] Creatinine 1.40 0.80 - 1.50 mg/dL [facility] Sodium 133(L) 135 - 145 mmol/L [facility] Potassium 3.9 3.5 - 5.0 mmol/L [facility] Comment: Please note: ??Patients with WBC >100,000 may have falsely elevated Potassium levels. ??For accurate Potassium quantification in these patients send serum separator tube (gold top) for subsequent determinations. ??Contact the Clinical Chemistry Laboratory if there are any questions. Chloride 100 98 - 107 mmol/L [facility] Carbon Dioxide 18(L) 22 - 31 mmol/L [facility] Anion Gap 15 5 - 15 mmol/L [facility] Calcium 8.9 8.5 - 10.5 mg/dL [facility] Est Glomerular Filtration Rate 57(L) >=60 mL/min/1. 73 m?? [facility] Comment: This patient's estimated GFR was [...] and symptoms in addition to eGFR. Blood 12/13/2023 11:5 8 AM EST 12/13/2023 12:10 PM EST Narrative Resulting Agency Comment Spec In Lab Frances Eisenberg MD CHEMISTRY ORDERABLES Performing Organization Address City/State/[facility] Co de Phone Number [facility] [place] [address] * (ABNORMAL) Diabetes Type 1 Evaluation (12/13/2023 11:58 AM EST) [facility] Diabetes Interpretation (MARCH) SEE COMMENTS [facility] Comment: This profile is consistent with a diagnosis of type 1 diabetes mellitus. * When found in isolation, the sensitivities of these autoantibodies for type 1 diabetes are 74% (GAD65 antibody), 75% (IA-2 antibody), 69% (insulin antibody) and 69% (ZnT8). When all 4 antibodies are tested for, and at least 1 autoantibody is detected, the combined sensitivity for type 1 diabetes is 98%, with a specificity of 98-100%. * These autoantibodies may also be detectable before the clinical onset of diabetes. The cumulative risk of a seropositive patient developing diabetes is 17% for 1 antibody, 39% for 2 antibodies, 70% for 3 antibodies, and 80% for 4 antibodies. * References: Afia NOLAN. Clinical applications of diabetes antibody testing. The Journal of clinical endocrinology and metabolism 2010;95:25-33. * Denys M, Kristie P, Julien M, Cordell R, Rolando M, Maggi L, Maikol J, Jose M, Gary Mckeon, Cookie MAYS, Rene Duran. 3 Screen islet cell autoantibody KALI: A sensitive and specific KALI for the combined measurement of autoantibodies to MAREK, to IA-2 and to ZnT8. Clin Stephania Acta. 2016;462:60-64. * Afia NOLAN, Gary Mckeon, Ismael AJ, Emerson S, Felipe GF, Ivory SHELL. Prediction of IDDM in the general population: strategies based on combinations of autoantibody markers. Diabetes. 1997;46:1701-10. * Test Performed by: [place] [address] Iuss Master Analyst: Jesus Zelaya M.D. Ph.D.; CLIA# [id number] Gad65 Ab (MARCH) 0.87(H) <=0.02 nmol/L [facility] Comment: ADDITIONAL INFORMATION This test was developed and its performance characteristics determined by [facility] in a manner consistent with CLIA requirements. This test has not been cleared or approved by the U.S. Food and Drug Administration. Test Performed by: [place] [address] Iuss Master Analyst: Jesus Zelaya M.D. Ph.D.; CLIA# [id number] Insulin Antibody (MARCH) 0.00 0.00 - 0.02 nmol/L [facility] Comment: ADDITIONAL INFORMATION This test was developed and its performance characteristics determined by [facility] in a manner consistent with CLIA requirements. This test has not been cleared or approved by the U.S. Food and Drug Administration. Test Performed by: [place] [address] Iuss Master Analyst: Jesus Zelaya M.D. Ph.D.; CLIA# [id number] Ia-2 Ab (MARCH) 1.33(H) <=0.02 nmol/L [facility] Comment: ADDITIONAL INFORMATION This test was developed and its performance characteristics determined by [facility] in a manner consistent with CLIA requirements. This test has not been cleared or approved by the U.S. Food and Drug Administration. Test Performed by: [facility] [place] [address] Iuss Master Analyst: Jesus Zelaya M.D. Ph.D.; CLIA# [id number] Znt8 Ab (MARCH) 255(H) <15.0 unit/mL [facility] Comment: ADDITIONAL INFORMATION This test has been modified from the middleware solutions architect's instructions. Its performance characteristics were determined by [facility] in a manner consistent with CLIA requirements. This test has not been cleared or approved by the U.S. Food and Drug Administration. Test Performed by: [facility] [place] [address] Iuss Master Analyst: Jesus Zelaya M.D. Ph.D.; CLIA# [id number] Blood 12/13/2023 11:5 8 AM EST 12/13/2023 2:25 PM EST Narrative Resulting Agency Comment Spec In Lab Frances Eisenberg MD LAB SEND OUT ORDERAB LES [facility] [place] [address] * Cyclic Citrullinated Peptide (12/13/2023 11:58 AM EST) Cyclic Citrulline Peptide <8.0 <=16.9 unit/mL [facility] Blood 12/13/2023 11:5 8 AM EST 12/13/2023 12:10 PM EST Narrative Resulting Agency Comment Spec In Lab Frances Eisenberg MD CHEMISTRY ORDERABLES Performing Organization Address [facility] Co de Phone Number [facility] [place] [address] * (ABNORMAL) POCT Glucose (12/13/2023 11:56 AM EST) Glucose, POC 335(H) 65 - 199 mg/dL [facility] Comment: Supplemental ranges: <140 mg/dL before meals <180 mg/dL all other times of the day Blood 12/13/2023 11:5 6 AM EST 12/13/2023 11:56 AM EST Frances Eisenberg MD POINT OF CARE TEST O RDERABLES Performing Organization Address [facility] Co de Phone Number [facility] [place] [address] * (ABNORMAL) POCT Glucose (12/13/2023 10:51 AM EST) Glucose, POC 252(H) 65 - 199 mg/dL [facility] Comment: Supplemental ranges: <140 mg/dL before meals <180 mg/dL all other times of the day Blood 12/13/2023 10:5 1 AM EST 12/13/2023 10:51 AM EST Frnaces Eisenberg MD POINT OF CARE TEST O RDERABLES Performing Organization Address [facility] Co de Phone Number [facility] [place] [address] * POCT Glucose (12/13/2023 9:58 AM EST) Glucose, POC 187 65 - 199 mg/dL [facility] Comment: Supplemental ranges: <140 mg/dL before meals <180 mg/dL all other times of the day Blood 12/13/2023 9:58 AM EST 12/13/2023 9:58 AM EST Frances Eisenberg MD POINT OF [place] [address] * XR Chest One View (12/13/2023 9:28 AM EST) Anatomical Region Laterality Modality Chest N/A Digital Radiogra phy Impressions 12/13/2023 9:37 AM EST Mild vascular congestion without focal airspace disease. Thank you for letting us participate in the care of this patient. ??If you are a health care provider and have any questions regarding this report, please contact the number below. ??For patients who have questions please contact the health care process manager that requested your imaging first. ? Narrative 12/13/2023 9:37 AM EST EXAMINATION: XR CHEST ONE VIEW CLINICAL HISTORY: Hypoxia requiring supplemental O2, status-post cardiac catheterization for STEMI TECHNIQUE: 1 view of the chest COMPARISON: 09/14/2023 FINDINGS: Cardiomediastinal silhouette is mildly widened, though likely not significantly changed compared to prior given differences in technique and patient positioning. The aorta is tortuous. There is vascular congestion. There is no focal consolidation. No large pleural effusion or pneumothorax. No obvious acute osseous abnormalities. Procedure Note Maral Camejo MD - 12/13/2023 EXAMINATION: XR CHEST ONE VIEW CLINICAL HISTORY: Hypoxia requiring supplemental O2, status-post cardiac catheterization for STEMI TECHNIQUE: 1 view of the chest COMPARISON: 09/14/2023 FINDINGS: Cardiomediastinal silhouette is mildly widened, though likely notsignificantly changed compared to prior given differences in technique and patient positioning. The aorta is tortuous. There is vascular congestion. There is no focal consolidation. No largepleural effusion or pneumothorax. No obvious acute osseous abnormalities. IMPRESSION Mild vascular congestion without focal airspace disease. Thank you for letting us participate in the care of this patient. If youare a health care provider and have any questions regarding this report,please contact the number below. For patients who have questions please contactthe health care process manager that requested your imaging first. Frances Eisenberg MD IMG DX ORDERABLES * EKG 12 Lead (12/13/2023 9:04 AM EST) Ventricular rate 71 BPM MUSE SYSTEM Atrial Rate 71 BPM MUSE SYSTEM P-R Interval 186 ms MUSE SYSTEM QRS Duration 110 ms MUSE SYSTEM Q-T Interval 430 ms MUSE SYSTEM QTC Calculated (Bezet) 467 ms MUSE SYSTEM Calculated P [place] 58 degrees MUSE SYSTEM Calculated R [place] -67 degrees MUSE SYSTEM Calculated T [place] 116 degrees MUSE SYSTEM INTERPRETATION Normal sinus rhythm Left axis deviation Inferior-poste rior infarct , possibly acute T wave abnormality, consider lateral ischemia Consider right ventricular involvement in acute inferior infarct Abnormal ECG When compared with ECG of 12-DEC-2023 19:04, (unconfirmed) Inferior posterior UT ST changes appear improved. Confirmed by fellow Aubrie Solorio ([id number]) on 12/13/2023 10:28:15 PM Confirmed by MD Mary Carmen, Kunal ([id number]) on 12/14/2023 2:10:45 PM MUSE SYSTEM 12/13/2023 9:04 AM EST 12/14/2023 2:10 PM EST Frances Eisenberg MD ECG ORDERABLES MUSE SYSTEM * POCT Glucose (12/13/2023 9:02 AM EST) Glucose, POC 177 65 - 199 mg/dL [facility] Comment: Supplemental ranges: <140 mg/dL before meals <180 mg/dL all other times of the day Blood 12/13/2023 9:02 AM EST 12/13/2023 9:02 AM EST Frances Eisenberg MD POINT OF CARE TEST O RDERAGEORGIANA Performing Organization Address City/State/[facility] Co de Phone Number [facility] [place] [address] * ECHO COMPLETE W CONTRAST (12/13/2023 8:11 AM EST) Anatomical Region Laterality Modality Cardiac Other 12/13/2023 6:41 AM EST Narrative 12/13/2023 8:30 AM EST [address] [place] [id number] ? Echocardiogram Report Name: MARTÍN ALVARADO ?Study Date: 12/13/2023 06:41 AMBP: 110/81 mmHg ? Patient Location: [facility] CV28 A : 1960 ? Height: 180 cm ? Account: [id number] Age: 63 yrs ? Weight: 134 kg Gender: Male ?BSA: 2.5 m2 Ordering Physician: FRANCES EISENBERG Referring Physician: JEAN-CLAUDE JOINER Performed By: Danita Gore [facility] Reason For Study: ST elevation myocardial infarction involving left circumflex coronary artery [I21.21 (ICD-10-CM)] Exam Location: [facility]. Interpretation Summary -Left ventricular systolic function is mildly reduced. The left ventricular ejection fraction is 41% by Wells's biplane. There is akinesis of the inferolateral and anterolateral segments. -The right ventricle is of normal size. Right ventricular systolic function is normal. Pulmonary artery hypertension could not be assessed due to inadequate tricuspid regurgitation jet. -There is no significant valve disease. -Other than a kldid-ob-obij study performed on yesterday's date with similar findings, no comparison study is available. See report for additional findings. Procedure Complete-[id number]. Image enhancement Optison was used for Doppler definition. Suboptimal quality. There is normal sinus rhythm. Left Ventricle Left ventricle is of normal size. Wall thickness is moderately increased. Left ventricular systolic function is mildly reduced. The left ventricular ejection fraction is 41% by Wells's biplane. There are segmental wall motion abnormalities. There is akinesis of the lateral wall. There is no left ventricular thrombus. Right Ventricle The right ventricle is of normal size. Right ventricular systolic function is normal. Left Atrium The left atrium is normal. No abnormality of the interatrial septum is identified. Right Atrium The right atrium is normal. Aortic Valve The aortic valve is probably trileaflet. The aortic valve is mildly thickened. There is no aortic stenosis. There is no aortic regurgitation. Mitral Valve The mitral valve is structurally normal. There is trace mitral regurgitation. Tricuspid Valve The tricuspid valve is structurally and functionally normal. There is trace tricuspid regurgitation. Pulmonic Valve The pulmonic valve appears to be structurally normal. Great Arteries The aortic root is of normal size. No abnormalities are identified. No abnormalities of the pulmonary artery are identified. Venous Inferior vena cava is dilated. Inferior vena cava collapse less than 50% with respiration. Pericardium/Pleural The pericardium appears normal. Hemodynamics Pulmonary artery hypertension could not be assessed due to inadequate tricuspid regurgitation jet. The estimated right atrial pressure is 15mmHg. Left ventricular filling pressure is normal. Left ventricular diastolic function is abnormal. Ejection Fraction ?2D Measurements ? Volumes EF(MOD-bp): 40.5 % ?IVSd: 1.7 cm ? LAV(MOD- bp) Indexed: ?LVIDd: 5.3 cm ?LVIDs: 4.2 cm ?16.0 ml/m2 ?LVPWd: 1.7 cm ?EDV(MOD-bp) Indexed: ? 74.2 ml/m2 ?LV mass(C)d: 412.8 grams ? ESV(MOD- bp) Indexed: ?LV mass(C)dI: 165.7 grams/m2 ?Ao root diam: 2.9 cm ? 44.1 ml/m2 ?Ao root diam index: 1.2 ?SV(LVOT): 44.2 ml ?LVOT diam: 2.1 cm ?SI(LVOT): 17.7 ml/m2 ?TAPSE_phl: 2.9 cm Doppler LV V1 VTI: 13.0 cm Ao V2 VTI: 20.6 cm Ao Max: 146.0 cm/sec Ao valve max: 8.5 mmHg Ao valve mean: 4.0 mmHg MV E max boni: 81.2 cm/sec MV A max boni: 73.9 cm/sec MV E/A: 1.1 MVA(P1/2t): 4.9 cm2 Lat Peak E' Boni: 6.4 cm/sec E/ e' (lat): 12.7 Med Peak E' Boni: 7.9 cm/sec E/e' (med): 10.2 E/e' Average: 11.4 ASHLEE(I,D): 2.1 cm2 Dimensionless index Aov: 0.63 I ?WMSI = 1.63 ? % Normal = 63 ?Segments ??Size X - Cannot ?2 - ?4 - ?1-2 ? small Interpret ?1 - Normal ?? Hypokinetic 3 - Akinetic Dyskinetic ?? 3-5 ? moderate 5 - ? 6-14 ?large Aneurysmal ?15-16 ?? diffuse Procedure Note Mani Mcguire MD - 12/13/2023 [address] [place] [address] Echocardiogram Report Name: MARTÍN ALVARADO Study Date: 406:41 AMBP: 110/81 mmHg Patient Location: [id number] : 1960 Height: 180 cm Account: [id number] Age: 63 yrs Weight: 134 kg Gender: Male BSA: 2.5 m2 Ordering Physician: FRANCES EISENBERG Referring Physician: JEAN-CLAUDE JOINER Performed By: Danita Gore [facility] Reason For Study: ST elevation myocardial infarction involving leftcircumflex coronary artery [I21.21 (ICD-10-CM)] Exam Location: [facility]. Interpretation Summary -Left ventricular systolic function is mildly reduced. The leftventricular ejection fraction is 41% by Wells's biplane. There is akinesis of the inferolateral and anterolateral segments. -The right ventricle is of normal size. Right ventricular systolicfunction is normal. Pulmonary artery hypertension could not be assessed due toinadequate tricuspid regurgitation jet. -There is no significant valve disease. -Other than a awlic-nf-ezze study performed on yesterday's date withsimilar findings, no comparison study is available. See report for additionalfindings. Procedure Complete-[id number]. Image enhancement Optison was used for Dopplerdefinition. Suboptimal quality. There is normal sinus rhythm. Left Ventricle Left ventricle is of normal size. Wall thickness is moderately increased.Left ventricular systolic function is mildly reduced. The left ventricularejection fraction is 41% by Wells's biplane. There are segmental wall motion abnormalities. There is akinesis of the lateral wall. There is no leftventricular thrombus. Right Ventricle The right ventricle is of normal size. Right ventricular systolic functionis normal. Left Atrium The left atrium is normal. No abnormality of the interatrial septum isidentified. Right Atrium The right atrium is normal. Aortic Valve The aortic valve is probably trileaflet. The aortic valve is mildlythickened. There is no aortic stenosis. There is no aortic regurgitation. Mitral Valve The mitral valve is structurally normal. There is trace mitralregurgitation. Tricuspid Valve The tricuspid valve is structurally and functionally normal. There istrace tricuspid regurgitation. Pulmonic Valve The pulmonic valve appears to be structurally normal. Great Arteries The aortic root is of normal size. No abnormalities are identified. No abnormalities of the pulmonary artery are identified. Venous Inferior vena cava is dilated. Inferior vena cava collapse less than 50%with respiration. Pericardium/Pleural The pericardium appears normal. Hemodynamics Pulmonary artery hypertension could not be assessed due to inadequatetricuspid regurgitation jet. The estimated right atrial pressure is 15mmHg. Leftventricular filling pressure is normal. Left ventricular diastolic function isabnormal. Ejection Fraction 2D Measurements Volumes EF(MOD-bp): 40.5 % IVSd: 1.7 cm LAV(MOD-bp)Indexed: LVIDd: 5.3 cm LVIDs: 4.2 cm 16.0 ml/m2 LVPWd: 1.7 cm EDV(MOD-bp)Indexed: 74.2 ml/m2 LV mass(C)d: 412.8 grams ESV(MOD-bp)Indexed: LV mass(C)dI: 165.7 grams/m2 Ao root diam: 2.9 cm 44.1 ml/m2 Ao root diam index: 1.2 SV(LVOT): 44.2ml LVOT diam: 2.1 cm SI(LVOT): 17.7ml/m2 TAPSE_phl: 2.9 cm Doppler LV V1 VTI: 13.0 cm Ao V2 VTI: 20.6 cm Ao Max: 146.0 cm/sec Ao valve max: 8.5 mmHg Ao valve mean: 4.0 mmHg MV E max boni: 81.2 cm/sec MV A max boni: 73.9 cm/sec MV E/A: 1.1 MVA(P1/2t): 4.9 cm2 Lat Peak E' Boni: 6.4 cm/sec E/ e' (lat): 12.7 Med Peak E' Boni: 7.9 cm/sec E/e' (med): 10.2 E/e' Average: 11.4 ASHLEE(I,D): 2.1 cm2 Dimensionless index Aov: 0.63 I WMSI = 1.63 % Normal = 63 SegmentsSize X - Cannot 2 - 4 - 1-2small Interpret 1 - Normal Hypokinetic 3 - Akinetic Dyskinetic 3-5moderate 5 - 6-14large Aneurysmal 15-16diffuse Frances Eisenberg MD ECHO ORDERABLES * POCT Glucose (12/13/2023 7:52 AM EST) Pathologist [facility] Glucose, POC 178 65 - 199 mg/dL [facility] Comment: Supplemental ranges: <140 mg/dL before meals <180 mg/dL all other times of the day Blood 12/13/2023 7:52 AM EST 12/13/2023 7:52 AM EST Frances Eisenberg MD POINT OF CARE TEST O RDERABLES [facility] [place] [address] * (ABNORMAL) Beta Hydroxybutyrate (12/13/2023 7:50 AM EST) Pathologist [facility] Beta-hydroxybuturat e 0.46(H) 0.00 - 0.30 mmol/L [facility] Comment: This test has not been cleared by the US FDA. Performance characteristics of this test were determined by [facility] in accordance with CLIA requirements. This laboratory is qualified under CLIA to perform high-complexity testing. Blood 12/13/2023 7:50 AM EST 12/13/2023 7:56 AM EST Narrative Resulting Agency Comment Spec In Lab Frances Eisenberg MD CHEMISTRY ORDERABLES [facility] [place] [address] * (ABNORMAL) Basic Metabolic Panel (non-fasting) (12/13/2023 7:50 AM EST) Glucose 176 65 - 199 mg/dL [facility] Comment:Diabetes: >=200 mg/d L plus symptoms Blood Urea Nitrogen 33(H) 10 - 20 mg/dL [facility] Creatinine 1.60(H) 0.80 - 1.50 mg/dL [facility] Sodium 133(L) 135 - 145 mmol/L [facility] Potassium 4.3 3.5 - 5.0 mmol/L [facility] Comment: Please note: ??Patients with WBC >100,000 may have falsely elevated Potassium levels. ??For accurate Potassium quantification in these patients send serum separator tube (gold top) for subsequent determinations. ??Contact the Clinical Chemistry Laboratory if there are any questions. Chloride 99 98 - 107 mmol/L [facility] Carbon Dioxide 17(L) 22 - 31 mmol/L [facility] Anion Gap 17(H) 5 - 15 mmol/L [facility] Calcium 8.4(L) 8.5 - 10.5 mg/dL [facility] Est Glomerular Filtration Rate 49(L) >=60 mL/min/1. 73 m?? [facility] Comment: This patient's estimated GFR was [...] and symptoms in addition to eGFR. Blood 12/13/2023 7:50 AM EST 12/13/2023 7:56 AM EST Narrative Resulting Agency Comment Spec In Lab Frances Eisenberg MD CHEMISTRY ORDERABLES Performing Organization Address City/[facility] Co de Phone Number [facility] [place] [address] * POCT Glucose (12/13/2023 6:16 AM EST) Glucose, POC 163 65 - 199 mg/dL [facility] [facility] Comment: Supplemental ranges: <140 mg/dL before meals <180 mg/dL all other times of the day Blood 12/13/2023 6:16 AM EST 12/13/2023 6:16 AM EST Frances Eisenberg MD POINT OF CARE TEST O RDERABLES Performing Organization Address [facility] Co de Phone Number [facility] [place] [address] * POCT Glucose (12/13/2023 5:04 AM EST) Glucose, POC 169 65 - 199 mg/dL [facility] Comment: Supplemental ranges: <140 mg/dL before meals <180 mg/dL all other times of the day Blood 12/13/2023 5:04 AM EST 12/13/2023 5:04 AM EST Frances Eisenberg MD POINT OF CARE TEST O RDERABLES Performing Organization Address City/[facility] Co de Phone Number [facility] [place] [address] * POCT Glucose (12/13/2023 4:09 AM EST) Glucose, POC 179 65 - 199 mg/dL [facility] Comment: Supplemental ranges: <140 mg/dL before meals <180 mg/dL all other times of the day Blood 12/13/2023 4:09 AM EST 12/13/2023 4:09 AM EST Frances Eisenberg MD POINT OF CARE TEST O RDERABLES Performing Organization Address [facility] Co de Phone Number [facility] [place] [address] * (ABNORMAL) Beta Hydroxybutyrate (12/13/2023 4:00 AM EST) Beta-hydroxybuturat e 0.35(H) 0.00 - 0.30 mmol/L [facility] Comment: This test has not been cleared by the [place] FDA. Performance characteristics of this test were determined by [facility] in accordance with CLIA requirements. This laboratory is qualified under CLIA to perform high-complexity testing. Blood 12/13/2023 4:00 AM EST 12/13/2023 4:24 AM EST Narrative Resulting Agency Comment Spec In Lab Frances Eisenberg MD CHEMISTRY ORDERABLES Performing Organization Address [facility] de Phone Number [facility] [place] [address] * (ABNORMAL) Basic Metabolic Panel (non-fasting) (12/13/2023 4:00 AM EST) Glucose 168 65 - 199 mg/dL [facility] Comment:Diabetes: >=200 mg/d L plus symptoms Blood Urea Nitrogen 31(H) 10 - 20 mg/dL [facility] Creatinine 1.64(H) 0.80 - 1.50 mg/dL [facility] Sodium 136 135 - 145 mmol/L [facility] Potassium 4.2 3.5 - 5.0 mmol/L [facility] Comment: Please note: ??Patients with WBC >100,000 may have falsely elevated Potassium levels. ??For accurate Potassium quantification in these patients send serum separator tube (gold top) for subsequent determinations. ??Contact the Clinical Chemistry Laboratory if there are any questions. Chloride 101 98 - 107 mmol/L [facility] Carbon Dioxide 19(L) 22 - 31 mmol/L [facility] Anion Gap 16(H) 5 - 15 mmol/L [facility] Calcium 8.3(L) 8.5 - 10.5 mg/dL [facility] Est Glomerular Filtration Rate 47(L) >=60 mL/min/1. 73 m?? [facility] Comment: This patient's estimated GFR was [...] and symptoms in addition to eGFR. Blood 12/13/2023 4:00 AM EST 12/13/2023 4:24 AM EST Narrative Resulting Agency Comment Spec In Lab Frances Eisenberg MD CHEMISTRY ORDERABLES Performing Organization Address [facility]/ZIP Co de Phone Number [facility] [place] [address] * POCT Glucose (12/13/2023 1:59 AM EST) Glucose, POC 179 65 - 199 mg/dL [facility] Comment: Supplemental ranges: <140 mg/dL before meals <180 mg/dL all other times of the day Blood 12/13/2023 1:59 AM EST 12/13/2023 1:59 AM EST Frances Eisenberg MD POINT OF CARE TEST O RDERABLES Performing Organization Address [facility]/ZIP Co de Phone Number [facility] [place] [address] * (ABNORMAL) Differential, Automated (12/13/2023 1:56 AM EST) Neutrophil % 77.2 % [facility] Neutrophil Absolute 12.55(H) 1.70 - 6.10 x10(3)/mc L [facility] Lymph % 13.4 % [facility] Lymphocytes Abs 2.2 0.9 - 3.2 x10(3)/ L [facility] Monocyte % 8.6 % [facility] Monocyte Abs 1.4(H) 0.3 - 0.9 x10(3)/ L [facility] Eos % 0.1 % [facility] Eosinophils Abs 0.0 0.0 - 0.4 x10(3)/[facility] Basophil % 0.1 % [facility] Baso Absolute 0.0 0.0 - 0.1 x10(3)/ L [facility] Immature Gran % 0.60 % [facility] Comment: Immature granulocytes(IG's)percentage and absolute count will include metamyelocytes, myelocytes, and promyelocytes. Blood smears from CBCs yielding IG's will be scanned manually for concordance. If this scan disagrees with the automated IG or if promyelocytes are noted, a manual differential will be performed. Immature Gran Absolute 0.10(H) 0.00 - 0.04 x10(3)/ L [facility] Blood 12/13/2023 1:56 AM EST 12/13/2023 2:08 AM EST Narrative Resulting Agency Comment Spec In Lab Dorys Cardoza MD HEMATOLOGY ORDERABLE S [facility] [place] [address] * (ABNORMAL) Hemogram (12/13/2023 1:56 AM EST) White Blood Cell 16.2(H) 4.0 - 9.5 x10(3)/ L [facility] Red Blood Cell 4.88 4.58 - 5.54 x10(6)/[facility] Hemoglobin 14.2 13.7 - 16.5 g/dL [facility] Hematocrit 41.7 40.5 - 48.5 % [facility] Mean Cell Volume 85.5 82.9 - 93.1 fL [facility] Mean Cell Hemoglobin 29.1 27.5 - 32.1 pg [facility] Mean Cell Hemoglobin Concentration 34.1 32.0 - 35.7 g/dL [facility] Platelet 272 145 - 357 x10(3)/ L [facility] RDW Standard Deviation 39.0 36.0 - 45.0 fL [facility] RDW coefficient of variation 12.6 11.4 - 13.8 % [facility] Mean Platelet Volume 10.6 7.6 - 12.9 fL [facility] NRBC% auto 0.0 % [facility] NRBC Absolute 0.000 0.000 - 0.000 x10(3)/mc L [facility] Blood 12/13/2023 1:56 AM EST 12/13/2023 2:08 AM EST Narrative Resulting Agency Comment Spec In Lab Dorys Cardoza MD HEMATOLOGY ORDERABLE S Performing Organization Address City/[facility]/ZIP Co de Phone Number [facility] [place] [address] * POCT Glucose (12/13/2023 12:40 AM EST) Glucose, POC 188 65 - 199 mg/dL [facility] Comment: Supplemental ranges: <140 mg/dL before meals <180 mg/dL all other times of the day Blood 12/13/2023 12:4 0 AM EST 12/13/2023 12:40 AM EST Frances Eisenberg MD POINT OF CARE TEST O RDERABLES Performing Organization Address City/[facility]/ZIP Co de Phone Number [facility] [place] [address] * Hemogram (12/13/2023 12:34 AM EST) White Blood Cell Clotted 4.0 - 9.5 [facility] Comment: Called by: ashley, Read back by: Claire Schwartz, Date/Time:12/13/23 01:52. Corrected from 17.0 x10(3)/mcL [HI] on 12/13/23 1:54:17 EST by Merlin Kenney Red Blood Cell Clotted 4.58 - 5.54 [facility] Comment: Called by: ashley, Read back by: Claire Schwartz, Date/Time:12/13/23 01:52. Corrected from 5.01 x10(6)/mcL on 12/13/23 1:54:17 EST by Merlin Kenney Hemoglobin Clotted 13.7 - 16.5 [facility] Comment: Called by: ashley, Read back by: Claire Schwartz, Date/Time:12/13/23 01:52. Corrected from 14.5 g/dL on 12/13/23 1:54:17 EST by Merlin Kenney. Hematocrit Clotted 40.5 - 48.5 [facility] Comment: Called by: ashley, Read back by: Claire Schwartz, Date/Time:12/13/23 01:52. Corrected from 42.1 % on 12/13/23 1:54:17 EST by Merlin Kenney. Mean Cell Volume Clotted 82.9 - 93.1 [facility] Comment: Called by: ashley, Read back by: Claire Schwartz, Date/Time:12/13/23 01:52. Corrected from 84.0 fL on 12/13/23 1:54:17 EST by Merlin Kenney Mean Cell Hemoglobin Clotted 27.5 - 32.1 [facility] Comment: Called by: ashley, Read back by: Claire Schwartz, Date/Time:12/13/23 01:52. Corrected from 28.9 pg on 12/13/23 1:54:17 EST by Merlin Kenney Mean Cell Hemoglobin Concentration Clotted 32.0 - 35.7 [facility] Comment: Called by: ashley, Read back by: Claire Schwartz, Date/Time:12/13/23 01:52. Corrected from 34.4 g/dL on 12/13/23 1:54:17 EST by Merlin Kenney. Platelet Clotted 145 - 357 [facility] Comment: Called by: ashley, Read back by: Claire Schwartz, Date/Time:12/13/23 01:52. Corrected from 251 x10(3)/mcL on 12/13/23 1:54:17 EST by Merlin Kenney RDW Standard Deviation Clotted 36.0 - 45.0 [facility] Comment: Called by: ashley, Read back by: Claire Schwartz, Date/Time:12/13/23 01:52. Corrected from 38.2 fL on 12/13/23 1:54:17 EST by Merlin Kenney RDW coefficient of variation Clotted 11.4 - 13.8 [facility] Comment: Called by: ashley, Read back by: Claire Schwartz, Date/Time:12/13/23 01:52. Corrected from 12.6 % on 12/13/23 1:54:17 EST by Merlin Kenney Mean Platelet Volume Clotted 7.6 - 12.9 [facility] Comment: Called by: ashley, Read back by: Claire Schwartz, Date/Time:12/13/23 01:52. Corrected from 10.5 fL on 12/13/23 1:54:17 EST by Merlin Kenney NRBC% auto Clotted [facility] Comment: Called by: ashley, Read back by: Claire Schwartz, Date/Time:12/13/23 01:52. Corrected from 0.0 % [NA] on 12/13/23 1:54:17 EST by Merlin Kenney NRBC Absolute Clotted 0.000 - 0.000 [facility] Comment: Called by: ashley, Read back by: Claire Schwartz, Date/Time:12/13/23 01:52. Corrected from 0.000 x10(3)/mcL on 12/13/23 1:54:17 EST by Merlin Kenney Blood 12/13/2023 12:3 4 AM EST 12/13/2023 1:02 AM EST Narrative Resulting Agency Comment Spec In Lab Dorys Cardoza MD HEMATOLOGY ORDERABLE S [facility] [place] [address] * Beta Hydroxybutyrate (12/13/2023 12:34 AM EST) Beta-hydroxybuturat e 0.18 0.00 - 0.30 mmol/L [facility] Comment: This test has not been cleared by the US FDA. Performance characteristics of this test were determined by [facility] in accordance with CLIA requirements. This laboratory is qualified under CLIA to perform high-complexity testing. Blood 12/13/2023 12:3 4 AM EST 12/13/2023 1:02 AM EST Narrative Resulting Agency Comment Spec In Lab Frances Eisenberg MD CHEMISTRY ORDERABLES [facility] [place] [address] * (ABNORMAL) Basic Metabolic Panel (non-fasting) (12/13/2023 12:34 AM EST) Glucose 189 65 - 199 mg/dL [facility] Comment:Diabetes: >=200 mg/d L plus symptoms Blood Urea Nitrogen 26(H) 10 - 20 mg/dL [facility] Creatinine 1.48 0.80 - 1.50 mg/dL [facility] Sodium 140 135 - 145 mmol/L [facility] Potassium 4.1 3.5 - 5.0 mmol/L [facility] Comment: Please note: ??Patients with WBC >100,000 may have falsely elevated Potassium levels. ??For accurate Potassium quantification in these patients send serum separator tube (gold top) for subsequent determinations. ??Contact the Clinical Chemistry Laboratory if there are any questions. Chloride 104 98 - 107 mmol/L [facility] Carbon Dioxide 19(L) 22 - 31 mmol/L [facility] Anion Gap 17(H) 5 - 15 mmol/L [facility] Calcium 8.1(L) 8.5 - 10.5 mg/dL [facility] Est Glomerular Filtration Rate 53(L) >=60 mL/min/1. 73 m?? [facility] Comment: This patient's estimated GFR was [...] and symptoms in addition to eGFR. Blood 12/13/2023 12:3 4 AM EST 12/13/2023 1:02 AM EST Narrative Resulting Agency Comment Spec In Lab Frances Eisenberg MD CHEMISTRY ORDERABLES Performing Organization Address [facility] de Phone Number [facility] [place] [address] * (ABNORMAL) Hemoglobin A1c (12/13/2023 12:34 AM EST) Hemoglobin A1c 10.0(H) 4.3 - 5.6 % [facility] Comment: Reference Range: 4.3 - 5.6% 5.7 - 6.4% - Increased Risk of Developing Diabetes Mellitus >= 6.5% - Consistent with diagnosis of Diabetes Mellitus In the absence of hyperglycemia (i.e. plasma glucose > 200 mg/dL) or classic symptoms of hyperglycemia a repeat measurement of HbA1c should be performed on a separate sample to confirm the diagnosis. Diagnosis and Classification of Diabetes Mellitus, Diabetes Care 2013; 36: Suppl. 1, D51-46 Estimated Average Glucose 241 mg/dL [facility] Blood 12/13/2023 12:3 4 AM EST 12/13/2023 1:02 AM EST Narrative Resulting Agency Comment Spec In Lab Frances Eisenberg MD CHEMISTRY ORDERABLES Performing Organization Address [facility] Co de Phone Number [facility] [place] [address] * (ABNORMAL) Hepatic Function Panel (12/13/2023 12:34 AM EST) Protein, Total 6.4 6.1 - 8.0 g/dL [facility] Albumin 3.9 3.2 - 5.2 g/dL [facility] Aspartate Aminotransferase 671(H) 0 - 39 unit/L [facility] Alanine Aminotransferase 109(H) 0 - 55 unit/L [facility] Alkaline Phosphatase 55 40 - 130 unit/L [facility] Bilirubin, Total 1.3 0.2 - 1.3 mg/dL [facility] Bilirubin, Direct 0.2 0.0 - 0.3 mg/dL [facility] Blood 12/13/2023 12:3 4 AM EST 12/13/2023 1:02 AM EST Narrative Resulting Agency Comment Spec In Lab Frances Eisenberg MD CHEMISTRY ORDERABLES Performing Organization Address City/[facility]/ZIP Co de Phone Number [facility] [place] [address] * TSH (12/13/2023 12:34 AM EST) Thyroid Stimulating Hormone 0.32 0.27 - 4.20 mcIU/mL [facility] Comment: Reference Interval (mcIU/mL): Females: ??First Trimester: 0.23-3.88 ??Second Trimester: 0.22-3.90 ??Third Trimester: 0.44-4.66 Blood 12/13/2023 12:3 4 AM EST 12/13/2023 1:02 AM EST Narrative Resulting Agency Comment Spec In Lab Frances Eisenberg MD CHEMISTRY ORDERABLES Performing Organization Address [facility] Co de Phone Number [facility] [place] [address] * (ABNORMAL) POCT Glucose (12/12/2023 11:26 PM EST) Glucose, POC 208(H) 65 - 199 mg/dL [facility] Comment: Supplemental ranges: <140 mg/dL before meals <180 mg/dL all other times of the day Blood 12/12/2023 11:2 6 PM EST 12/12/2023 11:26 PM EST Frances Eisenberg MD POINT OF CARE TEST O RDERABLES Performing Organization Address City/[facility] Co de Phone Number [facility] [place] [address] * Potassium (12/12/2023 10:14 PM EST) Potassium 3.8 3.5 - 5.0 mmol/L [facility] Comment: result rechecked-ssc Please note: ??Patients with WBC >100,000 may have falsely elevated Potassium levels. ??For accurate Potassium quantification in these patients send serum separator tube (gold top) for subsequent determinations. ??Contact the Clinical Chemistry Laboratory if there are any questions. Blood 12/12/2023 10:1 4 PM EST 12/12/2023 10:23 PM EST Narrative Resulting Agency Comment Spec In Lab Frances Eisenberg MD CHEMISTRY ORDERABLES [facility] [place] [address] * (ABNORMAL) POCT Glucose (12/12/2023 10:06 PM EST) Glucose, POC 250(H) 65 - 199 mg/dL [facility] Comment: Supplemental ranges: <140 mg/dL before meals <180 mg/dL all other times of the day Blood 12/12/2023 10:0 6 PM EST 12/12/2023 10:06 PM EST Frances Eisenberg MD POINT OF CARE TEST O RDERABLES Performing Organization Address [facility] Co de Phone Number [facility] [place] [address] * (ABNORMAL) POCT Glucose (12/12/2023 9:14 PM EST) Glucose, POC 361(H) 65 - 199 mg/dL [facility] Comment: Supplemental ranges: <140 mg/dL before meals <180 mg/dL all other times of the day Blood 12/12/2023 9:14 PM EST 12/12/2023 9:14 PM EST Frances Eisenberg MD POINT OF CARE TEST O RDERAGEORGIANA Performing Organization Address City/[facility] Co de Phone Number [facility] [place] [address] * (ABNORMAL) POCT Glucose (12/12/2023 8:12 PM EST) Glucose, POC 426(H) 65 - 199 mg/dL [facility] Comment: Supplemental ranges: <140 mg/dL before meals <180 mg/dL all other times of the day Blood 12/12/2023 8:12 PM EST 12/12/2023 8:12 PM EST Frances Eisenberg MD POINT OF CARE TEST O GERTRUDIS [facility] [place] [address] * (ABNORMAL) Basic Metabolic Panel (non-fasting) (12/12/2023 8:00 PM EST) Glucose 428(H) 65 - 199 mg/dL [facility] Comment:Diabetes: >=200 mg/d L plus symptoms Blood Urea Nitrogen 23(H) 10 - 20 mg/dL [facility] Creatinine 1.48 0.80 - 1.50 mg/dL [facility] Sodium 133(L) 135 - 145 mmol/L [facility] Potassium 7.4(Criti preston) 3.5 - 5.0 mmol/L [facility] Comment: ?? result rechecked-HOLLIE, Called by: HOLLIE, Read back by: ARTUR EL, Date/Time:12/12/23 21:55. Please note: ??Patients with WBC >100,000 may have falsely elevated Potassium levels. ??For accurate Potassium quantification in these patients send serum separator tube (gold top) for subsequent determinations. ??Contact the Clinical Chemistry Laboratory if there are any questions. Chloride 99 98 - 107 mmol/L [facility] Carbon Dioxide 16(L) 22 - 31 mmol/L [facility] Anion Gap 18(H) 5 - 15 mmol/L [facility] Calcium 8.1(L) 8.5 - 10.5 mg/dL [facility] Est Glomerular Filtration Rate 53(L) >=60 mL/min/1. 73 m?? [facility] Comment: This patient's estimated GFR was [...] and symptoms in addition to eGFR. Blood 12/12/2023 8:00 PM EST 12/12/2023 8:28 PM EST Narrative Resulting Agency Comment Spec In Lab Frances Eisenberg MD CHEMISTRY ORDERABLES Performing Organization Address City/[facility] Co de Phone Number [facility] [place] [address] * (ABNORMAL) Phosphorus (12/12/2023 8:00 PM EST) Phosphorus 4.8(H) 2.5 - 4.5 mg/dL [facility] Blood 12/12/2023 8:00 PM EST 12/12/2023 8:28 PM EST Narrative Resulting Agency Comment Spec In Lab Frances Eisenberg MD CHEMISTRY ORDERABLES Performing Organization Address [facility] Co de Phone Number [facility] [place] [address] * (ABNORMAL) Magnesium (12/12/2023 8:00 PM EST) Magnesium 0.66(L) 0.69 - 1.07 mmol/L [facility] Blood 12/12/2023 8:00 PM EST 12/12/2023 8:28 PM EST Narrative Resulting Agency Comment Spec In Lab Frances Eisenberg MD CHEMISTRY ORDERABLES Performing Organization Address City/[facility] Co de Phone Number [facility] [place] [address] * (ABNORMAL) POCT Glucose (12/12/2023 7:23 PM EST) Glucose, POC 463(H) 65 - 199 mg/dL [facility] Comment: Supplemental ranges: <140 mg/dL before meals <180 mg/dL all other times of the day Blood 12/12/2023 7:23 PM EST 12/12/2023 7:23 PM EST Frances Eisenberg MD POINT OF CARE TEST O RDERABLES [facility] [place] [address] * CARDIAC CATHETERIZATION (12/12/2023 7:06 PM EST) Anatomical Region Laterality Modality Other Narrative 12/13/2023 9:54 AM EST ?[facility] ? Cardiac Catheterization/Intervention Report ? Patient Name: Martín Alvarado. ? Procedure Date: 12/12/2023 ? A #: [id number] ? Primary Physician: Sergey Nava ? Case #: [id number] ? File Name: [id number] ? Catheterization Order Number: [id number] ? [facility] ? Final Report [place], [place] ? Patient Name: ? Martín Alvarado ? ID#: ?[id number] ? : ?1960 ? Procedure Date: ? December 12, 2023 ? Case #: ? [id number] ? Room: ? 5 ? Case Physician: ? Sergey Nava M.D. ? Start: ?17:55 ?Fellow: ? Sandip Carmen M.D. ?Admission: ??12/12/2023 ? Discharge: ??12/16/2023 ? Referring Physician: ??Jean-Claude Joiner M.D. ? Procedures: ?* Coronary Angiography ?* Left Heart Catheterization ?* Coronary Ultrasound ?* Coronary Stent Insertion ?* Arterial Blood Gases ? Pre Case Status: ?These procedures were performed on an emergent basis. ?An endotracheal tube had been inserted prior to arrival for the case. ? History ?Martín Alvarado is a 63 year old man. He has hypertension and a family ?history of coronary artery disease. The patient's smoking status is ?Former. He has untreated hypercholesterolemia. The patient has diabetes ?managed by oral medication and insulin. He is status post an acute ST ?elevation myocardial infarction. The patient has a history of CHF. The ?CHF is NYHA Functional Class IV, is newly diagnosed and is classified as ?Systolic. The patient also has a history of chronic obstructive pulmonary ?disease. Prior to the initiation of this procedure, the patient was ?designated as ASA Class IV. The CSHA clinical frailty scale is 4: ?Vulnerable. ? Diagnostic Tests: ?Electrocardiography: ? EKG was assessed by ECG. EKG was Abnormal. EKG showed ST Deviation ? >= 0.5 mm. ?Medications Prior to Procedure: ? Aspirin, Angiotensin II Receptor Jeimy, Calcium Channel Blocking ? Agent and Thrombolytic (any). ? Indications for Diagnostic Cath: ?The priority of the diagnostic procedure was Emergent. 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 Chest pain ?symptom assessment was: Typical Angina. This patient had cardiovascular ?instability due to hemodynamic instability. Ventricular support was ?supplied with pharmacologic support. ? Technique: ?A 6 SLFr sheath was inserted in the right radial artery utilizing the ?Seldinger technique. The left coronary artery was injected utilizing a ?5Fr TIG 4.0 catheter. A 5Fr TIG 4.0 catheter was used to inject the right ?coronary artery. Left ventricular pressure was performed utilizing a 5Fr ?TIG 4.0 catheter. Coronary stent insertion was performed and the ?equipment utilized will be described in the intervention summary section. ?12,000 units of heparin were administered. A total of 500cc of Omnipaque ?were opened, 124cc of Omnipaque were administered and 376cc of Omnipaque ?were wasted. Radiation: Fluoro time was 8.0 minutes, dose area product ?was 75.10 Gy/cm2 and air kerma was 910 mGY. See the case log for ?additional details. ?The patient received the following medications prior to and during the ?procedure: ? Unfractionated Heparin and Clopidogrel. ? Hemodynamics: ?Left Heart Pressures ? Resting: ? Syst Diast ? EDP ?a ?v ? m ?Ao 67 ?47 ?45 ?LV 89 ?31 ? Coronary Angiography: ?Dominance: Left ?Left Main ? The left main was normal, free of disease. ?Left Anterior Descending ? There was a 60% stenosis of the mid segment of the left anterior ? descending artery (LAD). ??The distal segment of the LAD had 75% ? stenosis. ?Left Circumflex ? There was a single discrete total occlusion of the proximal segment ? of the left circumflex artery (LCX). ? There was a 40% stenosis of the proximal segment of the first obtuse ? marginal branch (OM1) of the LCX. ??The distal segment of the OM1 had ? moderate diffuse (<=50% stenosis) disease. ? There was a 70% stenosis of the proximal segment of the second ? obtuse marginal branch (OM2) of the LCX. ? There was a 65% stenosis of the ostial segment of the left posterior ? descending branch (LPDA) of the LCX. ?Right Coronary Artery ? There was a 95% stenosis of the mid segment of the right coronary ? artery (RCA). ??The RCA was small. ? Intravascular Imaging/Physiology: ?Intravascular Ultrasound was performed in the proximal LCX using a 6 Fr ?EBU 3.5 guiding catheter and a 3.5 Fr [place] Chitina 20 Mhz using ?Manual pullback. ??Imaging was successful. ??Image quality was good. ?Indication: IVUS performed for post intervention assessment. ?IVUS performed after vessel manipulation. ?Findings Pre-Intervention: diffuse plaque. ?Findings Post-Intervention: The stent was well expanded and apposed. ?Conclusions: further intervention performed, no repeat imaging. ? Indication for Intervention: ?Coronary intervention was indicated for primary therapy for an acute ?myocardial infarction. The priority for the procedure was Emergent. The ?NCDR indication for the procedure was STEMI-Rescue (after Unsuccessful ?lytics). STEMI onset was 12/11/2023. Thrombolytics were administered on ?12/12/2023 at 3:40 PM. Initial PCI was performed for multivessel disease. ? Intervention Summary: ?Left Circumflex Artery ? Proximal 100% ? Stent insertion was performed on the total occlusion in the ? proximal segment of the LCX. This was a de melony lesion. ? According to the ACC/AHA classification system, this lesion ? was a type C high risk lesion. Primary prevention of ? restenosis was the indication for stent insertion. This was ? the culprit lesion. A guidewire was placed across this lesion. ? Vessel flow pre intervention was CHELSEA 0. Lesion length was ? 20mm. ? Stent insertion was accomplished through a 6 Fr. EBU 3.5 ? guide. ??The lesion was predilated with a 2.50mm EUPHORA 15 MM ? balloon with a maximum inflation pressure of 15 atmospheres. ? A premounted 4.00 x 22 mm [place] (DYANA) was deployed ? with a maximum inflation pressure of 14 atmospheres. ? Following stent deployment, the lesion was dilated using a ? 4.50mm NC EMERGE 12 MM balloon with a maximum inflation ? pressure of 15 atmospheres. ? The final outcome was defined as successful. There was no ? residual stenosis following this intervention. The final CHELSEA ? flow was 3. ? Vascular Access: ?Vascular Access Management: ? Mechanical Compression of the right radial artery access site was ? performed. ? Point of Care Testing: ?ABG: ? Arterial Blood gasses were performed using the I-Stat analyzer at ? 18:15: pH: 7.26, pCO2: 31.0, pO2: 83.0, sPO2: 95%, HCO3: 14 on FIO2: ? 4L NC. ?I-Stat: ? I-Stat was performed using the I-Stat analyzer at 18:15: Na+: 124, ? K+: 3.6, iCa++: 1.11, Hct: 43%, Hb: 14.6. ? Dual Antiplatelet (DAPT) Recommendations: ?Drug eluting stent (DYANA) inserted. ?P2Y12 Loading dose Clopidgrel 300 mg PO given in lab. ?Recommended anti-platelet/anti-thrombotic regimen: ?Start aspirin 81 mg daily now and continue for indefinitely. ?Start clopidogrel 75 mg daily now and continue for 12 months then stop. ?These recommendations are made at the time of the intervention. Patient ?and provider preferences or a changing clinical situation may require ?modification of this regimen. Consult [facility] Interventional Cardiology for ?questions. ?The 1 year bleeding risk as calculated by the PRECISE DAPT score is Low ?risk. ?This patient has a high DAPT score and may benefit from prolonged (12-30 ?months) dual antiplatelet therapy if the patient has completed 12 months ?of DAPT without having a major bleeding or ischemic event and the patient ?is NOT on chronic anticoagulation. This should be used for guidance in ?the overall conversation about prolonged dual antiplatelet therapy and ?not as a recommendation for or against any medical treatment. Consult ?http://tools.acc.org/DAPTriskapp/#!/content/calculator/ or [facility] ?Interventional Cardiology for questions ? Conclusions: ?* Three vessel coronary artery disease (LAD, LCX and RCA) ?* Elevated left ventricular end diastolic pressure ?* Successful stent insertion of the proximal LCX lesion ?* See Dual Antiplatelet (DAPT) Recommendations above ?* PCI for complete revascularization is likely to be technically ?challenging, consider medical management vs heart team approach. ? Complications/Events: ?During this case, the patient had severe hypotension requiring ?vasopressors. ? Post Procedure Fluid Recommendations: ?IV fluid at 206 mL/hr for 4 hours for a total of 824 mL. These ?recommendations are made at the time of the procedure. Patient and ?provider preferences or a changing clinical situation may require ?modification of this regimen. ?The attending physician was present for the entire procedure. ?Dr. Sergey Nava M.D. was present during the moderate sedation ?intraservice time as documented by the sedation nurse. ??Case time = 00:29. ?Dr. Sergey Nava M.D. performed the coronary angiography, stent ?insertion-coronary, left heart catheterization, IVUS # coronary and ABG. ? Sergey Nava M.D. ? Electronically Signed by: Sergey Nava M.D. ? Report Finalized: 12/12/2023 ??18:42 ? Report Last Ammended: 01/08/2024 ??14:22 ? Procedure Note Sergey Nava MD - 01/08/2024 [facility] Cardiac Catheterization/Intervention Report Patient Name: Martín Alvarado Procedure Date: 12/12/2023 A #: [id number] Primary Physician: Sergey Nava Case #: [id number] File Name: [id number] Catheterization Order Number: [id number] [facility] FinalReport [place], [place] Patient Name: Martín Rakesh Alvarado ID#:[id number] :1960 Procedure Date: December 12, 2023 Case #: [id number] Room: 5 Case Physician: Sergey Nava M.D. Start: 17:55 Fellow: Sandip Carmen M.D. Admission:12/12/2023 Discharge:12/16/2023 Referring Physician: Jean-Claude Joiner M.D. Procedures: * Coronary Angiography * Left Heart Catheterization * Coronary Ultrasound * Coronary Stent Insertion * Arterial Blood Gases Pre Case Status: These procedures were performed on an emergent basis. An endotracheal tube had been inserted prior to arrival for thecase. History Martín Alvarado is a 63 year old man. He has hypertension and afamily history of coronary artery disease. The patient's smoking status is Former. He has untreated hypercholesterolemia. The patient hasdiabetes managed by oral medication and insulin. He is status post an acuteST elevation myocardial infarction. The patient has a history of CHF.The CHF is NYHA Functional Class IV, is newly diagnosed and isclassified as Systolic. The patient also has a history of chronic obstructivepulmonary disease. Prior to the initiation of this procedure, the patient was designated as ASA Class IV. The [facility] clinical frailty scale is 4: Vulnerable. Diagnostic Tests: Electrocardiography: EKG was assessed by ECG. EKG was Abnormal. EKG showed STDeviation >= 0.5 mm. Medications Prior to Procedure: Aspirin, Angiotensin II Receptor Jeimy, Calcium ChannelBlocking Agent and Thrombolytic (any). Indications for Diagnostic Cath: The priority of the diagnostic procedure was Emergent. 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 Chest pain symptom assessment was: Typical Angina. This patient hadcardiovascular instability due to hemodynamic instability. Ventricular support was supplied with pharmacologic support. Technique: A 6 SLFr sheath was inserted in the right radial artery utilizingthe Seldinger technique. The left coronary artery was injected utilizinga 5Fr TIG 4.0 catheter. A 5Fr TIG 4.0 catheter was used to inject theright coronary artery. Left ventricular pressure was performed utilizing a5Fr TIG 4.0 catheter. Coronary stent insertion was performed and the equipment utilized will be described in the intervention summarysection. 12,000 units of heparin were administered. A total of 500cc ofOmnipaque were opened, 124cc of Omnipaque were administered and 376cc ofOmnipaque were wasted. Radiation: Fluoro time was 8.0 minutes, dose areaproduct was 75.10 Gy/cm2 and air kerma was 910 mGY. See the case log for additional details. The patient received the following medications prior to and duringthe procedure: Unfractionated Heparin and Clopidogrel. Hemodynamics: Left Heart Pressures Resting: Syst Diast EDP a v m Ao 67 47 45 LV 89 31 Coronary Angiography: Dominance: Left Left Main The left main was normal, free of disease. Left Anterior Descending There was a 60% stenosis of the mid segment of the leftanterior descending artery (LAD). The distal segment of the LAD had 75% stenosis. Left Circumflex There was a single discrete total occlusion of the proximalsegment of the left circumflex artery (LCX). There was a 40% stenosis of the proximal segment of the firstobtuse marginal branch (OM1) of the LCX. The distal segment of theOM1 had moderate diffuse (<=50% stenosis) disease. There was a 70% stenosis of the proximal segment of the second obtuse marginal branch (OM2) of the LCX. There was a 65% stenosis of the ostial segment of the leftposterior descending branch (LPDA) of the LCX. Right Coronary Artery There was a 95% stenosis of the mid segment of the rightcoronary artery (RCA). The RCA was small. Intravascular Imaging/Physiology: Intravascular Ultrasound was performed in the proximal LCX using a 6Fr EBU 3.5 guiding catheter and a 3.5 Fr [place] 20 Mhzusing Manual pullback. Imaging was successful. Image quality was good. Indication: IVUS performed for post intervention assessment. IVUS performed after vessel manipulation. Findings Pre-Intervention: diffuse plaque. Findings Post-Intervention: The stent was well expanded and apposed. Conclusions: further intervention performed, no repeat imaging. Indication for Intervention: Coronary intervention was indicated for primary therapy for an acute myocardial infarction. The priority for the procedure was Emergent.The NCDR indication for the procedure was STEMI-Rescue (afterUnsuccessful lytics). STEMI onset was 12/11/2023. Thrombolytics were administeredon 12/12/2023 at 3:40 PM. Initial PCI was performed for multivesseldisease. Intervention Summary: Left Circumflex Artery Proximal 100% Stent insertion was performed on the total occlusion inthe proximal segment of the LCX. This was a de melony lesion. According to the ACC/AHA classification system, thislesion was a type C high risk lesion. Primary prevention of restenosis was the indication for stent insertion. Thiswas the culprit lesion. A guidewire was placed across thislesion. Vessel flow pre intervention was CHELSEA 0. Lesion lengthwas 20mm. Stent insertion was accomplished through a 6 Fr. EBU 3.5 guide. The lesion was predilated with a 2.50mm UWAIEAX61 MM balloon with a maximum inflation pressure of 15atmospheres. A premounted 4.00 x 22 mm [place] (DYANA) wasdeployed with a maximum inflation pressure of 14 atmospheres. Following stent deployment, the lesion was dilated usinga 4.50mm NC EMERGE 12 MM balloon with a maximum inflation pressure of 15 atmospheres. The final outcome was defined as successful. There was no residual stenosis following this intervention. The finalTIMI flow was 3. Vascular Access: Vascular Access Management: Mechanical Compression of the right radial artery access sitewas performed. Point of Care Testing: ABG: Arterial Blood gasses were performed using the I-Stat analyzerat 18:15: pH: 7.26, pCO2: 31.0, pO2: 83.0, sPO2: 95%, HCO3: 14 onFIO2: 4L NC. I-Stat: I-Stat was performed using the I-Stat analyzer at 18:15: Na+:124, K+: 3.6, iCa++: 1.11, Hct: 43%, Hb: 14.6. Dual Antiplatelet (DAPT) Recommendations: Drug eluting stent (DYANA) inserted. P2Y12 Loading dose Clopidgrel 300 mg PO given in lab. Recommended anti-platelet/anti-thrombotic regimen: Start aspirin 81 mg daily now and continue for indefinitely. Start clopidogrel 75 mg daily now and continue for 12 months thenstop. These recommendations are made at the time of the intervention.Patient and provider preferences or a changing clinical situation mayrequire modification of this regimen. Consult [facility] Interventional Cardiologyfor questions. The 1 year bleeding risk as calculated by the PRECISE DAPT score isLow risk. This patient has a high DAPT score and may benefit from prolonged(12-30 months) dual antiplatelet therapy if the patient has completed 12months of DAPT without having a major bleeding or ischemic event and thepatient is NOT on chronic anticoagulation. This should be used for guidancein the overall conversation about prolonged dual antiplatelet therapyand not as a recommendation for or against any medical treatment.Consult http://tools.acc.org/DAPTriskapp/#!/content/calculator/ or [facility] Interventional Cardiology for questions Conclusions: * Three vessel coronary artery disease (LAD, LCX and RCA) * Elevated left ventricular end diastolic pressure * Successful stent insertion of the proximal LCX lesion * See Dual Antiplatelet (DAPT) Recommendations above * PCI for complete revascularization is likely to be technically challenging, consider medical management vs heart team approach. Complications/Events: During this case, the patient had severe hypotension requiring vasopressors. Post Procedure Fluid Recommendations: IV fluid at 206 mL/hr for 4 hours for a total of 824 mL. These recommendations are made at the time of the procedure. Patient and provider preferences or a changing clinical situation may require modification of this regimen. The attending physician was present for the entire procedure. Dr. Sergey Naav M.D. was present during the moderate sedation intraservice time as documented by the sedation nurse. Case time =00:29. Dr. Sergey Nava M.D. performed the coronary angiography, stent insertion-coronary, left heart catheterization, IVUS # coronary andABG. Sergey Nava M.D. Electronically Signed by: Sergey Nava M.D. Report Finalized: 12/12/2023 18:42 Report Last Ammended: 01/08/2024 14:22 Sergey Nava MD CARDIAC CATH ORDERAB LES * EKG 12 Lead (12/12/2023 7:04 PM EST) [facility] Ventricular rate 92 BPM MUSE SYSTEM Atrial Rate 92 BPM MUSE SYSTEM P-R Interval 232 ms MUSE SYSTEM QRS Duration 138 ms MUSE SYSTEM Q-T Interval 420 ms MUSE SYSTEM QTC Calculated (Bezet) 519 ms MUSE SYSTEM Calculated P [place] 58 degrees MUSE SYSTEM Calculated R [place] 0 degrees MUSE SYSTEM Calculated T [place] 125 degrees MUSE SYSTEM INTERPRETATION Sinus rhythm with 1st degree A-V block ACUTE UT / STEMI ST elevation in inferior and posterior leads Abnormal ECG No previous ECGs available Confirmed by MD MALGORZATA, ABRAM ([id number]) on 12/13/2023 10:29:21 AM MUSE SYSTEM 12/12/2023 7:04 PM EST 12/13/2023 10:29 AM EST Frances Eisenberg MD ECG ORDERABLES MUSE SYSTEM * (ABNORMAL) Differential, Automated (12/12/2023 6:30 PM EST) Neutrophil % 82.5 % [facility] Neutrophil Absolute 17.78(H) 1.70 - 6.10 x10(3)/mc L [facility] Lymph % 12.0 % [facility] Lymphocytes Abs 2.6 0.9 - 3.2 x10(3)/ L [facility] Monocyte % 4.5 % [facility] Monocyte Abs 1.0(H) 0.3 - 0.9 x10(3)/mc L [facility] Eos % 0.0 % [facility] Eosinophils Abs 0.0 0.0 - 0.4 x10(3)/mc L [facility] Basophil % 0.1 % [facility] Baso Absolute 0.0 0.0 - 0.1 x10(3)/mc L [facility] Immature Gran % 0.90 % [facility] Comment: Immature granulocytes(IG's)percentage and absolute count will include metamyelocytes, myelocytes, and promyelocytes. Blood smears from CBCs yielding IG's will be scanned manually for concordance. If this scan disagrees with the automated IG or if promyelocytes are noted, a manual differential will be performed. Immature Gran Absolute 0.19(H) 0.00 - 0.04 x10(3)/mc L [facility] Blood 12/12/2023 6:30 PM EST 12/12/2023 6:40 PM EST Narrative Resulting Agency Comment Spec In Lab Sergey Nava MD HEMATOLOGY ORDERABLE S [facility] [place] [address] * (ABNORMAL) Hemogram (12/12/2023 6:30 PM EST) White Blood Cell 21.6(H) 4.0 - 9.5 x10(3)/mc L [facility] Red Blood Cell 4.89 4.58 - 5.54 x10(6)/mc L [facility] Hemoglobin 14.2 13.7 - 16.5 g/dL [facility] Hematocrit 41.4 40.5 - 48.5 % [facility] Mean Cell Volume 84.7 82.9 - 93.1 fL [facility] Mean Cell Hemoglobin 29.0 27.5 - 32.1 pg [facility] Mean Cell Hemoglobin Concentration 34.3 32.0 - 35.7 g/dL [facility] Platelet 331 145 - 357 x10(3)/mc L [facility] RDW Standard Deviation 37.8 36.0 - 45.0 fL [facility] RDW coefficient of variation 12.5 11.4 - 13.8 % [facility] Mean Platelet Volume 10.6 7.6 - 12.9 fL [facility] NRBC% auto 0.0 % [facility] NRBC Absolute 0.000 0.000 - 0.000 x10(3)/mc L [facility] Blood 12/12/2023 6:30 PM EST 12/12/2023 6:40 PM EST Narrative Resulting Agency Comment Spec In Lab Sergey Nava MD HEMATOLOGY ORDERABLE S Performing Organization Address City/State/[facility] Co de Phone Number [facility] [place] [address] * (ABNORMAL) Beta Hydroxybutyrate (12/12/2023 6:30 PM EST) Beta-hydroxybuturat e 2.09(H) 0.00 - 0.30 mmol/L [facility] Comment: This test has not been cleared by the [place] FDA. Performance characteristics of this test were determined by [facility] in accordance with CLIA requirements. This laboratory is qualified under CLIA to perform high-complexity testing. Blood 12/12/2023 6:30 PM EST 12/12/2023 6:40 PM EST Narrative Resulting Agency Comment Spec In Lab Sergey Nava MD CHEMISTRY ORDERABLES Performing Organization Address City/[facility]/ZIP Co de Phone Number [facility] [place] [address] * (ABNORMAL) Lactate, whole blood, send to lab ([facility]) (12/12/2023 6:30 PM EST) Lactate WB 3.8(H) 0.5 - 2.2 mmol/L [facility] Blood 12/12/2023 6:30 PM EST 12/12/2023 6:40 PM EST Narrative Resulting Agency Comment Spec In Lab Sergey Nava MD CHEMISTRY ORDERABLES Performing Organization Address [facility] Co de Phone Number [facility] [place] [address] * (ABNORMAL) BMP w/fasting Glucose (12/12/2023 6:30 PM EST) Glucose Fasting 555(Criti preston) 65 - 99 mg/dL [facility] Comment: Called by: HOLILE, Read back by: CLAIRE SCHWARTZ, Date/Time:12/12/23 20:19. ?Fasting* Glucose Interpretive Criteria Normal ?65-99 mg/dL Impaired Fasting glucose ?100-125 mg/dL Consistent with Diabetes Mellitus ? >or= 126 mg/dL *Fasting is defined as no caloric intake for at least 8 hours In the absence of unequivocal hyperglycemia a plasma glucose value of >or= 126 mg/dL should be repeated on a subsequent day. Diagnosis and Classification of Diabetes Mellitus, Position Statement from the [place] [employer]. ??Diabetes Care, Volume 33, Supplement 1, Nov 2009 Blood Urea Nitrogen 24(H) 10 - 20 mg/dL [facility] Creatinine 1.72(H) 0.80 - 1.50 mg/dL [facility] Sodium 132(L) 135 - 145 mmol/L [facility] Potassium 3.8 3.5 - 5.0 mmol/L [facility] Comment: Please note: ??Patients with WBC >100,000 may have falsely elevated Potassium levels. ??For accurate Potassium quantification in these patients send serum separator tube (gold top) for subsequent determinations. ??Contact the Clinical Chemistry Laboratory if there are any questions. Chloride 96(L) 98 - 107 mmol/L [facility] Carbon Dioxide 14(L) 22 - 31 mmol/L [facility] Anion Gap 22(H) 5 - 15 mmol/L [facility] Calcium 8.0(L) 8.5 - 10.5 mg/dL [facility] Est Glomerular Filtration Rate 45(L) >=60 mL/min/1. 73 m?? [facility] Comment: This patient's estimated GFR was [...] and symptoms in addition to eGFR. Blood 12/12/2023 6:30 PM EST 12/12/2023 6:40 PM EST Narrative Resulting Agency Comment Spec In Lab Sergey Nava MD CHEMISTRY ORDERABLES [facility] [place] [address] * (ABNORMAL) POCT Glucose (12/12/2023 6:18 PM EST) Glucose, POC 562(Critic al) 65 - 199 mg/dL [facility] Comment: Supplemental ranges: <140 mg/dL before meals <180 mg/dL all other times of the day Blood 12/12/2023 6:18 PM EST 12/12/2023 6:18 PM EST Frances Eisenberg MD POINT [place] [address] documented in this encounter Visit Diagnoses Diagnosis STEMI (ST elevation myocardial infarction)- Primary Acute myocardial infarction, unspecified site, episode of care unspecified ST elevation myocardial infarction (STEMI), unspecified artery Type 2 diabetes mellitus with other circulatory complication, without long-term current use of insulin documented in this encounter Admitting Diagnoses Diagnosis STEMI (ST elevation myocardial infarction) Acute myocardial infarction, unspecified site, episode of care unspecified documented in this encounter Administered Medications Inactive Administered Medications - up to 3 most recent administrations Medication Order MAR Action Action Date Dose Rate Site aspirin EC tablet 81 mg 81 mg, Oral, DAILY, First dose on Sun12/13/23 at 0900, Until Discontinued, Recovery (Recovery-Hospital Unit), Routine Given 12/16/2023 8:28 AM EST 81 mg Given 12/15/2023 8:16 AM EST 81 mg Given 12/14/2023 8:31 AM EST 81 mg atropine (0.1 mg/mL) injection 1 mg 1 mg, Intravenous, EVERY 5 MIN PRN, 2 doses, Starting on Sun12/12/23 at 1915, Until Sun12/16/23 at 1849, Other, vasovagal episode, Call interventional MD. , Routine clopidogreL (Plavix) tablet 75 mg 75 mg, Oral, DAILY, First dose on Sun12/13/23 at 0900, Until Discontinued, Recovery (Recovery-Hospital Unit), Routine Given 12/16/2023 8:28 AM EST 75 mg Given 12/15/2023 8:16 AM EST 75 mg Given 12/14/2023 8:31 AM EST 75 mg dextrose 10% infusion 250 mL, at 1,000 mL/hr, Intravenous, EVERY 15 MIN PRN, Starting on Sun12/12/23 at 1831, Until Sun12/16/23 at 1849, For BG 50-70 mg/dL: Oral treatment preferred: If able to drink, give 120 mL juice or regular (not diet) soda OR if NPO, give 15 gram glucose 40% oral gel massaged into buccal mucosa OR if unconscious or uncooperative, give 25 gram (250 mL) dextrose 10% IV over 15 minutes per protocol OR, if no IV access, 1 mg glucagon IM. For BG less than 50 mg/dL: Oral treatment preferred: If able to drink, give 240 mL juice or regular (not diet) soda OR if NPO, give 30 gram glucose 40% oral gel massaged in buccal mucosa OR if unconscious or uncooperative, give 25 gram (250 mL) dextrose 10% IV over 15 minutes per protocol OR, if no IV access, 1 mg glucagon IM. Recheck BG in 15 minutes. May repeat juice/soda, gel, dextrose or glucagon once per episode. Notify provider if hypoglycemia does not resolve after two treatments. Providers should consider the following: administering longer-acting treatments for the duration of active insulin or hypoglycemia agent for persistent hypoglycemia and re-evaluating active insulin orders before administering the next dose. furosemide (Lasix) (10 mg/mL) injection 40 mg 40 mg, Intravenous, ONCE, 1 dose, On Sun12/12/23 at 2045 Given 12/12/2023 9:19 PM EST 40 mg furosemide (Lasix) (10 mg/mL) injection 40 mg 40 mg, Intravenous, ONCE, 1 dose, On [place] 12/13/23 at 0615 Given 12/13/2023 5:59 AM EST 40 mg furosemide (Lasix) (10 mg/mL) injection 60 mg 60 mg, Intravenous, ONCE, 1 dose, On [place] 12/13/23 at 1315 Given 12/13/2023 1:19 PM EST 60 mg furosemide (Lasix) (10 mg/mL) injection 80 mg 80 mg, Intravenous, ONCE, 1 dose, On [place] 12/13/23 at 1815 Given 12/13/2023 6:18 PM EST 80 mg furosemide (Lasix) (10 mg/mL) injection 80 mg 80 mg, Intravenous, ONCE, 1 dose, On Sun12/14/23 at 1015 Given 12/14/2023 9:49 AM EST 80 mg furosemide (Lasix) (10 mg/mL) injection 80 mg 80 mg, Intravenous, ONCE, 1 dose, On 12/15/23 at 0315 Given 12/15/2023 3:32 AM EST 80 mg furosemide (Lasix) (10 mg/mL) injection 80 mg 80 mg, Intravenous, ONCE, 1 dose, On 12/15/23 at 1500 Given 12/15/2023 3:14 PM EST 80 mg furosemide (Lasix) tablet 40 mg 40 mg, Oral, DAILY, First dose on Sun12/16/23 at 1430, Until Discontinued, Routine Given 12/16/2023 3:28 PM EST 40 mg glucagon (Glucagen) (1 mg/mL) injection solution 1 mg 1 mg, Intramuscular, EVERY 15 MIN PRN, Starting on Sun12/12/23 at 1831, Until Sun12/16/23 at 1849, Low blood sugar, For BG 50-70 mg/dL: Oral treatment preferred: If able to drink, give 120 mL juice or regular (not diet) soda OR if NPO, give 15 gram glucose 40% oral gel massaged into buccal mucosa OR if unconscious or uncooperative, give 25 gram (250 mL) dextrose 10% IV over 15 minutes per protocol OR, if no IV access, 1 mg glucagon IM. For BG less than 50 mg/dL: Oral treatment preferred: If able to drink, give 240 mL juice or regular (not diet) soda OR if NPO, give 30 gram glucose 40% oral gel massaged in buccal mucosa OR if unconscious or uncooperative, give 25 gram (250 mL) dextrose 10% IV over 15 minutes per protocol OR, if no IV access, 1 mg glucagon IM. Recheck BG in 15 minutes. May repeat juice/soda, gel, dextrose or glucagon once per episode. Notify provider if hypoglycemia does not resolve after two treatments. Providers should consider the following: administering longer-acting treatments for the duration of active insulin or hypoglycemia agent for persistent hypoglycemia and re-evaluating active insulin orders before administering the next dose. , Routine glucose (Glutose) 40% oral geL 15-30 g of glucose, Buccal, EVERY 15 MIN PRN, Starting on Sun12/12/23 at 1831, Until Sun12/16/23 at 1849, Low blood sugar, For BG 50-70 mg/dL: Oral treatment preferred: If able to drink, give 120 mL juice or regular (not diet) soda OR if NPO, give 15 gram glucose 40% oral gel massaged into buccal mucosa OR if unconscious or uncooperative, give 25 gram (250 mL) dextrose 10% IV over 15 minutes per protocol OR, if no IV access, 1 mg glucagon IM. For BG less than 50 mg/dL: Oral treatment preferred: If able to drink, give 240 mL juice or regular (not diet) soda OR if NPO, give 30 gram glucose 40% oral gel massaged in buccal mucosa OR if unconscious or uncooperative, give 25 gram (250 mL) dextrose 10% IV over 15 minutes per protocol OR, if no IV access, 1 mg glucagon IM. Recheck BG in 15 minutes. May repeat juice/soda, gel, dextrose or glucagon once per episode. Notify provider if hypoglycemia does not resolve after two treatments. Providers should consider the following: administering longer-acting treatments for the duration of active insulin or hypoglycemia agent for persistent hypoglycemia and re-evaluating active insulin orders before administering the next dose. 1 tube of Glutose-15 contains 15 grams of glucose (net weight of tube = 37.5 grams.), Routine heparin (porcine) (5,000 units/1 mL) subcutaneous injection 5,000 Units 5,000 Units, Subcutaneous, EVERY 8 HOURS SCHEDULED, First dose on Sun12/13/23 at 0915, Until Discontinued, Routine Given 12/16/2023 6:30 AM EST 5,000 Unit s Given 12/16/2023 12:33 AM EST 5,000 Units Given 12/15/2023 3:14 PM EST 5,000 Units insulin glargine-ygfn (Semglee) (100 unit/mL) subcutaneous injection vial 60 Units 60 Units, Subcutaneous, DAILY, First dose on Sun12/13/23 at 1400, Until Discontinued, Discontinue IV insulin drip: Lantus dose 60 units to be given 2 hours prior to drips discontinuation (drip can continue to run up to 4 hours) 2. At 2 hour yovany and before discontinuing IV insulin drip: Drip rate must be less than 2 units/hour Glucose must be less than 200mg/dl If above criteria not met, drip continues to run and insulin requirements, need to be reassessed. If above criteria met, drip can be discontinued and lispro correction is added. , Routine Given 12/14/2023 8:29 AM EST 60 Units Given 12/13/2023 2:46 PM EST 60 Units insulin glargine-ygfn (Semglee) (100 unit/mL) subcutaneous injection vial 60 Units 60 Units, Subcutaneous, DAILY WITH DINNER, First dose (after last modification) on Sun12/14/23 at 1430, Until Discontinued, Discontinue IV insulin drip: Lantus dose 60 units to be given 2 hours prior to drips discontinuation (drip can continue to run up to 4 hours) 2. At 2 hour yovany and before discontinuing IV insulin drip: Drip rate must be less than 2 units/hour Glucose must be less than 200mg/dl If above criteria not met, drip continues to run and insulin requirements, need to be reassessed. If above criteria met, drip can be discontinued and lispro correction is added. , Routine Given 12/15/2023 4:59 PM EST 60 Units Given 12/14/2023 5:27 PM EST 60 Units insulin glargine-ygfn (Semglee) (100 unit/mL) subcutaneous injection vial 60 Units 60 Units, Subcutaneous, DAILY, First dose on Sun12/15/23 at 0900, Until Discontinued, Routine Given 12/16/2023 8:27 AM EST 60 Units Given 12/15/2023 8:10 AM EST 60 Units insulin lispro (HumaLOG;Admelog) (100 unit/mL) subcutaneous injection vial 0-20 Units 0-20 Units, Subcutaneous, 3 TIMES DAILY WITH MEALS, First dose on Sun12/13/23 at 1200, Until Discontinued, ME[employer] Give 1 unit for every 6 grams carbohydrate. Hold if not eating or if BG less than 70 mg/dL. , Routine Given 12/13/2023 12:26 PM EST 3 Units insulin lispro (HumaLOG;Admelog) (100 unit/mL) subcutaneous injection vial 0-25 Units 0-25 Units, Subcutaneous, 3 TIMES DAILY WITH MEALS, First dose (after last modification) on Sun12/13/23 at 1700, Until Discontinued, ME[employer]IATED Give 1 unit for every 3 grams carbohydrate. Hold if not eating or if BG less than 70 mg/dL. , Routine Given 12/14/2023 8:28 AM EST 7 Units Given 12/13/2023 5:02 PM EST 5 Units insulin lispro (HumaLOG;Admelog) (100 unit/mL) subcutaneous injection vial 0-40 Units 0-40 Units, Subcutaneous, 3 TIMES DAILY WITH MEALS, First dose (after last modification) on Sun12/14/23 at 1200, Until Discontinued, MEAL ASS[employer]IATED Give 1 unit for every 2 grams carbohydrate. Hold if not eating or if BG less than 70 mg/dL. , Routine Given 12/16/2023 12:30 PM EST 22 Units Given 12/16/2023 8:27 AM EST 33 Units Given 12/15/2023 4:58 PM EST 32 Units insulin lispro (HumaLOG;Admelog) (100 unit/mL) subcutaneous injection vial 0-40 Units 0-40 Units, Subcutaneous, 3 TIMES DAILY PRN, Starting on Sun12/14/23 at 1053, Until 12/16/23 at 1849, with snacks, S[employer]CK [employer]IATED Give 1 unit for every 2 grams carbohydrate. Hold if not eating or if BG less than 70 mg/dL., Routine Given 12/16/2023 10:51 AM EST 20 Units insulin lispro (HumaLOG;Admelog) (100 unit/mL) subcutaneous injection vial 2-12 Units 2-12 Units, Subcutaneous, EVERY 4 HOURS SCHEDULED, First dose on Sun12/15/23 at 0015, Until Discontinued, CORRECTION BOLUS [2-12 Units] Resistant Sliding Scale (BG in mg/dL) Correction Factor 10 (1 unit of insulin is expected to drop the glucose 10 mg/dL) ?? BG 140 - 160 Give 2 units BG 161 - 180 Give 4 units BG 181 - 200 Give 6 units BG 201 - 220 Give 8 units BG 221 - 240 Give 10 units BG greater than 240, give 12 units and recheck BG in 2 hours. - If recheck BG is LESS than 240, give no insulin and resume schedule. - If recheck BG is GREATER than or EQUAL to 240, give 12 units and repeat BG in 2 hours (no more than 3 times) & call for new insulin orders. DO NOT hold if NPO, unless specifically directed to do so by written order. ?? Per Inpatient Subcutaneous Insulin Policy, recheck a BG of greater than 240 mg/dL in 2 hours, Routine Given 12/16/2023 12:31 PM EST 10 Units Given 12/16/2023 8:24 AM EST 4 Units Given 12/16/2023 12:33 AM EST 6 Units insulin regular (Myxredlin) (1 unit/mL) bolus from infusion 13.6 Units 13.6 Units (0.1 Units/kg ? 136 kg), Intravenous, ONCE PRN, 1 dose, Starting on Sun12/12/23 at 1931, Until Sun12/12/23 at 1937, Per Protocol, Hyperglycemia - see infusion admin instr, See insulin infusion admin instructions for bolus guidance., Routine Bolus from Bag 12/12/2023 7:37 PM EST 13.6 Units insulin regular (Myxredlin) (1 unit/mL) bolus from infusion 13.6 Units 13.6 Units (0.1 Units/kg ? 136 kg), Intravenous, ONCE PRN, 1 dose, Starting on Sun12/13/23 at 1237, Until Sun12/13/23 at 1244, Per Protocol, Hyperglycemia - see infusion admin instr, See insulin infusion admin instructions for bolus guidance., Routine Bolus from Bag 12/13/2023 12:44 PM EST 13.6 Units insulin regular (Myxredlin) (1 unit/mL) bolus from infusion 13.6 Units 13.6 Units (0.1 Units/kg ? 136 kg), Intravenous, ONCE PRN, 1 dose, Starting on Sun12/13/23 at 1311, Until Sun12/13/23 at 1326, Per Protocol, Hyperglycemia - see infusion admin instr, See insulin infusion admin instructions for bolus guidance., Routine Bolus from Bag 12/13/2023 1:26 PM EST 13.6 Units insulin regular (Myxredlin) (1 unit/mL) in sodium chloride 0.9% 100 mL infusion 0-0.1 Units/kg/hr ? 136 kg (0-13.6 mL/hr), Intravenous, CONTINUOUS, Starting on Sun12/12/23 at 1900, Until Sun12/12/23 at 2215, Initiate insulin infusion at 0.1 units/kg/hr (Patient actual weight not available., max rate of 30 units per hr); Hold insulin drip if potassium level is less than 3.3 mMol/L. ?? If GLUCOSE level does not decrease by at least 50 mg/dL from the initial value after the first hour: - Administer bolus 0.1 unit/kg & document on Bolus Dose order. - Continue same infusion rate and follow IV fluids titration. ?? GLUCOSE GREATER THAN OR EQUAL TO 150 mg/dL: - Continue same infusion rate and follow IV fluids titration. ?? GLUCOSE 70 - 149 mg/dL: - DECREASE insulin infusion rate by 50% ONLY ONCE if not already done and follow IV fluids titration. - Notify team if continues to be LESS than 100 mg/dL consecutively x2 readings with the next POC for further adjustments ?? GLUCOSE LESS than 70 mg/dL: - Pause insulin. Treat Hypoglycemia. Recheck blood glucose in 20 minutes. - If glucose is GREATER than 70 mg/dL on Recheck AND anion gap greater than 12, Restart insulin at 50% of prior infusion rate. - Notify team if continues to be LESS than 70 mg/dL with the next POC for further adjustments. ?? GLUCOSE level LESS than 200 mg/dL and anion gap is LESS than 12 and/or BHOB LESS than 1 (RESOLUTION OF DKA) - Notify team to consider transition to basal-bolus insulin. - Discontinue insulin drip 2 hours after initiation of long acting insulin., Routine Rate/Dose Verify 12/12/2023 10:00 PM EST 13.6 Units/hr 13.6 mL/hr Rate/Dose Verify 12/12/2023 8:00 PM EST 13.6 Units/hr 13.6 mL/hr New Bag 12/12/2023 7:00 PM EST 13.6 Units/hr 13.6 mL/hr insulin regular (Myxredlin) (1 unit/mL) in sodium chloride 0.9% 100 mL infusion 0.5-16 Units/hr (0.5-16 mL/hr), Intravenous, CONTINUOUS, Starting on 12/12/23 at 2315, Until 12/15/23 at 1354, Type 2 diabetes. Current blood glucose 240 - 299 Titration- aim for target range of 140 - 180 mg/dL. Check BG every hour unless otherwise indicated. [[ Initial bolus of 8 units, then begin continuous infusion at 5 units/hour. ]] If BG at the time the infusion is started outside of the CURRENT BLOOD GLUCOSE range above, contact MD for new starting rate/bolus order. When infusion is paused, turn it back on as soon as possible per protocol. If BG at the time the infusion is started is outside of the CURRENT BLOOD GLUCOSE range above, contact provider for new starting rate/bolus order. Current BG less than 80 - Stop insulin. If BG less than 70, treat per hypoglycemia protocol. Re-check BG in 30 minutes and as soon as BG is greater than 80, restart with rate 50% of previous rate. If infusion stopped after previous rate had been 0.5 unit/hour, recheck every hour and when BG greater than 100 and higher than last test restart at 0.5 unit/hour. IF INFUSION IS PAUSED, TURN IT BACK ON SOON POSSIBLE, PER PROTOCOL. Current BG 80 - 139 - If BG dropped 10 mg/dL or more since last test, decrease rate by 50% and re-check in 30 minutes. Otherwise, decrease rate by 0.5 units/hour. Current BG 140 - 180 - If BG dropped 50 mg/dL or more since last test, decrease rate by 1 unit/hour. Otherwise, maintain same rate. Current BG 181 - 220 - If BG is lower than last test, maintain same rate. Otherwise, increase rate by 0.5 units/hour. Current BG 221 - 250 - If BG dropped 30 mg/dL or more since last test, maintain same rate. Otherwise, increase rate by 1 unit/hour. Current BG greater than 250 - Increase rate by 1 unit/hour AND bolus with Regular insulin IV as per IV Bolus Scale. Re-check BG in 30 minutes. THE FIRST DOSE OF SC INSULIN OUGHT TO BE ADMINISTERED BEFORE DISCONTINUING THE INFUSION. AN OVERLAP OF 2-3 HOURS IS RECOMMENDED. Continue to monitor the BG hourly., Routine Rate/Dose Change 12/14/2023 10:22 PM EST 2.1 Units/hr 2.1 mL/hr Rate/Dose Change 12/14/2023 9:17 PM EST 4.2 Units/hr 4.2 m L/hr Rate/Dose Change 12/14/2023 8:24 PM EST 5.2 Units/hr 5.2 m L/hr ipratropium-albuteroL (Duoneb) 0.5 mg-3 mg(2.5 mg base)/3 mL nebulizer solution 3 mL 3 mL, Nebulization, 4 TIMES DAILY PRN, Starting on [place] 12/13/23 at 1136, Until 12/16/23 at 1849, Wheezing, Routine lidocaine (Xylocaine) 1% (10 mg/mL) injection 3 mg 3 mg (0.3 mL), Subcutaneous, ONCE PRN, 1 dose, Starting on Sun12/12/23 at 1831, Until 12/16/23 at 1849, for discomfort with PIV insertion, Routine losartan (Cozaar) tablet 25 mg 25 mg, Oral, DAILY, First dose on Sun12/14/23 at 1015, Until Discontinued, Hold for SBP<90, Routine Given 12/15/2023 8:16 AM EST 25 mg Given 12/14/2023 9:49 AM EST 25 mg losartan (Cozaar) tablet 25 mg 25 mg, Oral, ONCE, 1 dose, On [facility] 12/15/23 at 1200, Routine Given 12/15/2023 11:39 AM EST 25 mg losartan (Cozaar) tablet 50 mg 50 mg, Oral, DAILY, First dose (after last modification) on [place] 12/16/23 at 0900, Until Discontinued, Hold for SBP<90, Routine Given 12/16/2023 8:28 AM EST 50 mg magnesium sulfate 2 g in sterile water 50 mL infusion 2 g, Intravenous, ONCE, 1 dose, On [facility] 12/13/23 at 0615, Administer over 120 Minutes Rate/Dose Verify 12/13/2023 6:00 AM EST 25 mL/hr New Bag 12/13/2023 5:59 AM EST 2 g 25 mL/hr metoprolol tartrate (Lopressor) tablet 12.5 mg 12.5 mg, Oral, EVERY 12 HOURS SCHEDULED (2 times per day), First dose (after last modification) on [facility] 12/13/23 at 1300, Until Discontinued, Routine Given 12/14/2023 8:31 AM EST 12.5 mg Given 12/13/2023 8:18 PM EST 12.5 mg Given 12/13/2023 12:17 PM EST 12.5 mg metoproloL tartrate (Lopressor) tablet 25 mg 25 mg, Oral, EVERY 6 HOURS SCHEDULED, First dose (after last modification) on Sun12/14/23 at 1200, Until Discontinued, Hold for SBP<90 or HR<60, Routine Given 12/16/2023 12:30 PM EST 25 mg Given 12/16/2023 6:30 AM EST 25 mg Given 12/16/2023 12:33 AM EST 25 mg NORepinephrine (Levophed) (16 mcg/mL) in dextrose 5% 250 mL infusion CONTINUOUS PRN, Starting on Sun12/12/23 at 1759, Until Sun12/12/23 at 1850, Intra-Operative (Intra-Procedure), Routine Rate/Dose Change 12/12/2023 6:10 PM EST 4 mcg/min 15 mL/hr Rate/Dose Change 12/12/2023 6:09 PM EST 10 mcg/min 37.5 mL /hr Rate/Dose Change 12/12/2023 6:06 PM EST 15 mcg/min 56.3 mL /hr olodateroL (Striverdi Respimat) inhaler 2 puff 2 puff, Inhalation, DAILY, First dose on Sun12/13/23 at 0900, Until Discontinued, Interchanged for Anoro Ellipta per Pharmacy and Therapeutics (P&T) Committee therapeutic interchange policy. , Routine Given 12/16/2023 8:30 AM EST 2 puffs Given 12/15/2023 8:11 AM EST 2 puffs Given 12/14/2023 11:31 AM EST 2 puffs perflutren protein-A microsphers (Optison) (0.22 mg/mL) injection 0.5 mL 0.5 mL, Intravenous, ONCE PRN, 1 dose, Starting on Sun12/13/23 at 0812, Until Sun12/13/23 at 0630, for enhancement of sub-optimal echo images, Echo Lab (Intra-Procedure), Routine Given 12/13/2023 6:30 AM EST 0.5 mLs potassium chloride 10 mEq in sterile water 100 mL infusion 10 mEq, Intravenous, ONCE, 1 dose, On Sun12/12/23 at 1900, Administer over 60 Minutes, Doses of 20 mEq or greater require a Central Line Warning Vesicant/Irritant Medication New Bag 12/12/2023 7:40 PM EST 10 mEq 100 mL/hr potassium chloride ER (Klor-Con M) crystal tablet 20 mEq 20 mEq, Oral, EVERY 4 HOURS PRN, Starting on Sun12/12/23 at 2049, Until Sun12/16/23 at 1849, hypokalemia, Administer for serum potassium (mMol/L) of 3.9 - 4 potassium chloride ER particle/crystal tablets (Klor-Con M) may be broken in half and each half swallowed separately. Tablets can be dissolved in ~4 ounces of water; allow ~2 minutes to dissolve, stir well and drink immediately. Do not crush, chew, or suck on tablet., Routine potassium chloride ER (Klor-Con M) crystal tablet 40 mEq 40 mEq, Oral, EVERY 4 HOURS PRN, Starting on Sun12/12/23 at 2049, Until Sun12/16/23 at 1849, hypokalemia, Administer for serum potassium (mMol/L) of 3.6 - 3.8 potassium chloride ER particle/crystal tablets (Klor-Con M) may be broken in half and each half swallowed separately. Tablets can be dissolved in ~4 ounces of water; allow ~2 minutes to dissolve, stir well and drink immediately. Do not crush, chew, or suck on tablet., Routine Given 12/16/2023 6:48 AM EST 40 mEq Given 12/12/2023 9:19 PM EST 40 mEq potassium chloride ER (Klor-Con M) crystal tablet 40 mEq 40 mEq, Oral, ONCE, 1 dose, On 12/15/23 at 1215, potassium chloride ER particle/crystal tablets (Klor-Con M) may be broken in half and each half swallowed separately. Tablets can be dissolved in ~4 ounces of water; allow ~2 minutes to dissolve, stir well and drink immediately. Do not crush, chew, or suck on tablet., Routine Given 12/15/2023 11:38 AM EST 40 mEq rosuvastatin (Crestor) tablet 40 mg 40 mg, Oral, EVERY EVENING, First dose on Sun12/12/23 at 2145, Until Discontinued, Routine Given 12/15/2023 4:58 PM EST 40 mg Given 12/14/2023 5:35 PM EST 40 mg Given 12/13/2023 6:18 PM EST 40 mg sodium chloride 0.9 % (flush) (BD PosiFlush Normal Saline 0.9) flush 5 mL 5 mL, Intravenous, 2 TIMES DAILY, First dose on Sun12/12/23 at 2100, Until Discontinued, Routine Given 12/16/2023 8:33 AM EST 5 mLs Given 12/15/2023 9:00 PM EST 5 mLs Given 12/15/2023 8:11 AM EST 5 mLs sodium chloride 0.9 % (flush) (BD PosiFlush Normal Saline 0.9) flush 5 mL 5 mL, Intravenous, 2 TIMES DAILY, First dose on Sun12/12/23 at 2215, Until Discontinued, Routine Given 12/16/2023 8:32 AM EST 5 mLs Given 12/15/2023 9:00 PM EST 5 mLs Given 12/15/2023 8:11 AM EST 5 mLs sodium chloride 0.9 % (flush) (BD PosiFlush Normal Saline 0.9) flush 5-20 mL 5-20 mL, Intravenous, EVERY 1 MIN PRN, Starting on Sun12/12/23 at 1831, Until Sun12/16/23 at 1849, flush, Flush pertains to all indwelling lines. Flush per protocol found in the job aid using the link provided on this medication record., Routine spironolactone (Aldactone) tablet 25 mg 25 mg, Oral, DAILY, First dose on Sun12/14/23 at 1015, Until Discontinued, Hold for SBP<90 DO NOT SPLIT, CRUSH OR OPEN, Routine Given 12/16/2023 8:28 AM EST 25 mg Given 12/15/2023 8:16 AM EST 25 mg Given 12/14/2023 9:49 AM EST 25 mg tiotropium bromide (Spiriva Respimat) 2.5 mcg/actuation inhaler 2 puff 2 puff, Inhalation, DAILY, First dose on Sun12/13/23 at 0900, Until Discontinued, Must be primed prior to first administration Interchanged for Anoro Ellipta per Pharmacy and Therapeutics (P&T) Committee therapeutic interchange policy. , Routine Given 12/16/2023 8:30 AM EST 2 puffs Given 12/15/2023 8:11 AM EST 2 puffs Given 12/14/2023 11:32 AM EST 2 puffs documented in this encounter Active and Recently Administered Medications Times are shown in EST. Scheduled Medication Order 12/14/2023 12/15/2023 12/16/2023 aspirin EC tablet 81 mg 81 mg, Oral, DAILY, First dose on Sun12/13/23 at 0900, Until Discontinued, Recovery (Recovery-Hospital Unit), Routine 0831 (Given - Provider: Emily Eckert RN) 0816 (Given - Provider: Emily Eckert RN) 0828 (Given - Provider: Kimberly Colorado RN) clopidogreL (Plavix) tablet 75 mg 75 mg, Oral, DAILY, First dose on Sun24 at 0900, Until Discontinued, Recovery (Recovery-Hospital Unit), Routine 0831 (Given - Provider: Emily Eckert RN) 0816 (Given - Provider: Emily Eckert RN) 0828 (Given - Provider: Kimberly Colorado, CAROL) furosemide (Lasix) (10 mg/mL) injection 80 mg (COMPLETED) 80 mg, Intravenous, ONCE, 1 dose, On Sun12/14/23 at 1015 0949 (Given - Provider: Emily Eckert RN) furosemide (Lasix) (10 mg/mL) injection 80 mg (COMPLETED) 80 mg, Intravenous, ONCE, 1 dose, On 12/15/23 at 0315 0332 (Given - Provider: Colleen Vargas RN) furosemide (Lasix) (10 mg/mL) injection 80 mg (COMPLETED) 80 mg, Intravenous, ONCE, 1 dose, On 12/15/23 at 1500 1514 (Given - Provider: Emily Eckert RN) furosemide (Lasix) tablet 40 mg 40 mg, Oral, DAILY, First dose on Sun12/16/23 at 1430, Until Discontinued, Routine 1528 (Given - Provider: Kimberly Colorado RN) heparin (porcine) (5,000 units/1 mL) subcutaneous injection 5,000 Units 5,000 Units, Subcutaneous, EVERY 8 HOURS SCHEDULED, First dose on Sun12/13/23 at 0915, Until Discontinued, Routine 0529 (Given - Provider: Colleen Vargas RN)1453 (Given - Provider: Emily Eckert RN)2222 (Given - Provider: oClleen Vargas RN) 0609 (Given - Provider: Colleen Vargas RN)1514 (Given - Provider: Emily Eckert RN - Comment: ambulatin lucia unit) 0033 (Given - Provider: Anthony Escalante, CAROL)0630 (Given - Provider: Anthony Escalante, CAROL)1400 (Not Given - Provider: Kimberly Colorado RN - Reason: Patient/family refused) insulin glargine-ygfn (Semglee) (100 unit/mL) subcutaneous injection vial 60 Units (CANCELED) 60 Units, Subcutaneous, DAILY, First dose on Marcelle 12/13/23 at 1400, Until Discontinued, Discontinue IV insulin drip: Lantus dose 60 units to be given 2 hours prior to drips discontinuation (drip can continue to run up to 4 hours) 2. At 2 hour yovany and before discontinuing IV insulin drip: Drip rate must be less than 2 units/hour Glucose must be less than 200mg/dl If above criteria not met, drip continues to run and insulin requirements, need to be reassessed. If above criteria met, drip can be discontinued and lispro correction is added. , Routine 08 (Given - Provider: Emily Eckert RN) insulin glargine-ygfn (Semglee) (100 unit/mL) subcutaneous injection vial 60 Units 60 Units, Subcutaneous, DAILY WITH DINNER, First dose (after last modification) on Sun12/14/23 at 1430, Until Discontinued, Discontinue IV insulin drip: Lantus dose 60 units to be given 2 hours prior to drips discontinuation (drip can continue to run up to 4 hours) 2. At 2 hour yovany and before discontinuing IV insulin drip: Drip rate must be less than 2 units/hour Glucose must be less than 200mg/dl If above criteria not met, drip continues to run and insulin requirements, need to be reassessed. If above criteria met, drip can be discontinued and lispro correction is added. , Routine 172 (Given - Provider: Emily Eckert RN) 165 (Given - Provider: Emily Eckert RN) insulin glargine-ygfn (Semglee) (100 unit/mL) subcutaneous injection vial 60 Units 60 Units, Subcutaneous, DAILY, First dose on Sun12/15/23 at 0900, Until Discontinued, Routine 08 (Given - Provider: Emily Eckert RN) 08 (Given - Provider: Kimberly Colorado RN) insulin lispro (HumaLOG;Admelog) (100 unit/mL) subcutaneous injection vial 0-25 Units (CANCELED) 0-25 Units, Subcutaneous, 3 TIMES DAILY WITH MEALS, First dose (after last modification) on Marcelle 12/13/23 at 1700, Until Discontinued, [employer] Give 1 unit for every 3 grams carbohydrate. Hold if not eating or if BG less than 70 mg/dL. , Routine 0828 (Given - Provider: Emily Eckert RN) insulin lispro (HumaLOG;Admelog) (100 unit/mL) subcutaneous injection vial 0-40 Units 0-40 Units, Subcutaneous, 3 TIMES DAILY WITH MEALS, First dose (after last modification) on Sun12/14/23 at 1200, Until Discontinued, [employer] Give 1 unit for every 2 grams carbohydrate. Hold if not eating or if BG less than 70 mg/dL. , Routine 1212 (Given - Provider: Emily Eckert RN)1728 (Given - Provider: Emily Eckert RN) 0751 (Given - Provider: Emily Eckert RN)1237 (Given - Provider: Emily Eckert RN)1658 (Given - Provider: Emily Eckert RN) 0827 (Given - Provider: Kimberly Colorado, CAROL)1230 (Given - Provider: Kimberly Colorado, CAROL) insulin lispro (HumaLOG;Admelog) (100 unit/mL) subcutaneous injection vial 2-12 Units(Linked Group 1) 2-12 Units, Subcutaneous, EVERY 4 HOURS SCHEDULED, First dose on Sun12/15/23 at 0015, Until Discontinued, CORRECTION BOLUS [2-12 Units] Resistant Sliding Scale (BG in mg/dL) Correction Factor 10 (1 unit of insulin is expected to drop the glucose 10 mg/dL) ?? BG 140 - 160 Give 2 units BG 161 - 180 Give 4 units BG 181 - 200 Give 6 units BG 201 - 220 Give 8 units BG 221 - 240 Give 10 units BG greater than 240, give 12 units and recheck BG in 2 hours. - If recheck BG is LESS than 240, give no insulin and resume schedule. - If recheck BG is GREATER than or EQUAL to 240, give 12 units and repeat BG in 2 hours (no more than 3 times) & call for new insulin orders. DO NOT hold if NPO, unless specifically directed to do so by written order. ?? Per Inpatient Subcutaneous Insulin Policy, recheck a BG of greater than 240 mg/dL in 2 hours, Routine 0015 (Not Given - Provider: Colleen Vargas RN - Reason: Order parameters not met)0400 (Not Given - Provider: Colleen Vargas RN - Reason: Order parameters not met)0800 (Not Given - Provider: Emily Eckert RN - Reason: Order parameters not met)1237 (Given - Provider: Emily Eckert RN)1659 (Given - Provider: Emily Eckert RN)2059 (Given - Provider: Anthony Escalante RN) 0033 (Given - Provider: Anthony Escalante RN)0400 (Not Given - Provider: Anthony Escalante RN - Reason: Order parameters not met)0824 (Given - Provider: Kimberly Colorado RN)1231 (Given - Provider: Kimberly Colorado RN)1600 (Not Given - Provider: Kimberly Colorado RN - Reason: Order parameters not met) losartan (Cozaar) tablet 25 mg (CANCELED) 25 mg, Oral, DAILY, First dose on Sun12/14/23 at 1015, Until Discontinued, Hold for SBP<90, Routine 0949 (Given - Provider: Emily Eckert RN) 0816 (Given - Provider: Emily Eckert RN) losartan (Cozaar) tablet 25 mg (COMPLETED) 25 mg, Oral, ONCE, 1 dose, On Sun12/15/23 at 1200, Routine 1139 (Given - Provider: Emily Eckert RN) losartan (Cozaar) tablet 50 mg 50 mg, Oral, DAILY, First dose (after last modification) on Sun12/16/23 at 0900, Until Discontinued, Hold for SBP<90, Routine 0828 (Given - Provider: Kimberly Colorado RN) metoprolol tartrate (Lopressor) tablet 12.5 mg (CANCELED) 12.5 mg, Oral, EVERY 12 HOURS SCHEDULED (2 times per day), First dose (after last modification) on Sun12/13/23 at 1300, Until Discontinued, Routine 0831 (Given - Provider: Emily Eckert RN) metoproloL tartrate (Lopressor) tablet 25 mg 25 mg, Oral, EVERY 6 HOURS SCHEDULED, First dose (after last modification) on Sun12/14/23 at 1200, Until Discontinued, Hold for SBP<90 or HR<60, Routine 1131 (Given - Provider: Emily Eckert RN)1735 (Given - Provider: Emily Eckert RN) 0030 (Given - Provider: Colleen C Cassels, RN)0609 (Given - Provider: Colleen Vargas RN)1139 (Given - Provider: Emily Eckert RN)1836 (Given - Provider: Emily Eckert RN) 0033 (Given - Provider: Anthony Escalante RN)0630 (Given - Provider: Anthony Escalante RN)1230 (Given - Provider: Kimberly Colorado, CAROL) olodateroL (Striverdi Respimat) inhaler 2 puff(Linked Group 2) 2 puff, Inhalation, DAILY, First dose on Marcelle 12/13/23 at 0900, Until Discontinued, Interchanged for Anoro Ellipta per Pharmacy and Therapeutics (P&T) Committee therapeutic interchange policy. , Routine 1131 (Given - Provider: Emily Eckert RN) 0811 (Given - Provider: Emily Eckert RN) 0830 (Given - Provider: Kimberly Colorado RN) potassium chloride ER (Klor-Con M) crystal tablet 40 mEq (COMPLETED) 40 mEq, Oral, ONCE, 1 dose, On 12/15/23 at 1215, potassium chloride ER particle/crystal tablets (Klor-Con M) may be broken in half and each half swallowed separately. Tablets can be dissolved in ~4 ounces of water; allow ~2 minutes to dissolve, stir well and drink immediately. Do not crush, chew, or suck on tablet., Routine 1138 (Given - Provider: Emily Eckert RN) rosuvastatin (Crestor) tablet 40 mg 40 mg, Oral, EVERY EVENING, First dose on Sun12/12/23 at 2145, Until Discontinued, Routine 1735 (Given - Provider: Emily Eckert RN) 1658 (Given - Provider: Emily Eckert RN) sodium chloride 0.9 % (flush) (BD PosiFlush Normal Saline 0.9) flush 5 mL 5 mL, Intravenous, 2 TIMES DAILY, First dose on Sun12/12/23 at 2100, Until Discontinued, Routine 0832 (Given - Provider: Emily Eckert RN)2100 (Given - Provider: Colleen Vargas RN) 0811 (Given - Provider: Emily Eckert RN)2100 (Given - Provider: Anthony Escalante RN) 0833 (Given - Provider: Kimberly Colorado RN) sodium chloride 0.9 % (flush) (BD PosiFlush Normal Saline 0.9) flush 5 mL 5 mL, Intravenous, 2 TIMES DAILY, First dose on Sun12/12/23 at 2215, Until Discontinued, Routine 0831 (Given - Provider: Emily Eckert RN)2100 (Given - Provider: Colleen Vargas RN) 0811 (Given - Provider: Emily Eckert RN)2100 (Given - Provider: Anthony Escalante RN) 0832 (Given - Provider: Kimberly Colorado, CAROL) spironolactone (Aldactone) tablet 25 mg 25 mg, Oral, DAILY, First dose on Sun12/14/23 at 1015, Until Discontinued, Hold for SBP<90 DO NOT SPLIT, CRUSH OR OPEN, Routine 0949 (Given - Provider: Emily Eckert RN) 0816 (Given - Provider: Emily Eckert RN) 0828 (Given - Provider: Kimberly Colorado RN) tiotropium bromide (Spiriva Respimat) 2.5 mcg/actuation inhaler 2 puff(Linked Group 2) 2 puff, Inhalation, DAILY, First dose on Sun12/13/23 at 0900, Until Discontinued, Must be primed prior to first administration Interchanged for Anoro Ellipta per Pharmacy and Therapeutics (P&T) Committee therapeutic interchange policy. , Routine 1132 (Given - Provider: Emily Eckert RN) 0811 (Given - Provider: Emily Eckert RN) 0830 (Given - Provider: Kimberly Colorado RN) Continuous Medication Order 12/14/2023 12/15/2023 12/16/2023 insulin regular (Myxredlin) (1 unit/mL) in sodium chloride 0.9% 100 mL infusion (CANCELED) 0.5-16 Units/hr (0.5-16 mL/hr), Intravenous, CONTINUOUS, Starting on Sun12/12/23 at 2315, Until 12/15/23 at 1354, Type 2 diabetes. Current blood glucose 240 - 299 Titration- aim for target range of 140 - 180 mg/dL. Check BG every hour unless otherwise indicated. [[ Initial bolus of 8 units, then begin continuous infusion at 5 units/hour. ]] If BG at the time the infusion is started outside of the CURRENT BLOOD GLUCOSE range above, contact MD for new starting rate/bolus order. When infusion is paused, turn it back on as soon as possible per protocol. If BG at the time the infusion is started is outside of the CURRENT BLOOD GLUCOSE range above, contact provider for new starting rate/bolus order. Current BG less than 80 - Stop insulin. If BG less than 70, treat per hypoglycemia protocol. Re-check BG in 30 minutes and as soon as BG is greater than 80, restart with rate 50% of previous rate. If infusion stopped after previous rate had been 0.5 unit/hour, recheck every hour and when BG greater than 100 and higher than last test restart at 0.5 unit/hour. IF INFUSION IS PAUSED, TURN IT BACK ON SOON POSSIBLE, PER PROTOCOL. Current BG 80 - 139 - If BG dropped 10 mg/dL or more since last test, decrease rate by 50% and re-check in 30 minutes. Otherwise, decrease rate by 0.5 units/hour. Current BG 140 - 180 - If BG dropped 50 mg/dL or more since last test, decrease rate by 1 unit/hour. Otherwise, maintain same rate. Current BG 181 - 220 - If BG is lower than last test, maintain same rate. Otherwise, increase rate by 0.5 units/hour. Current BG 221 - 250 - If BG dropped 30 mg/dL or more since last test, maintain same rate. Otherwise, increase rate by 1 unit/hour. Current BG greater than 250 - Increase rate by 1 unit/hour AND bolus with Regular insulin IV as per IV Bolus Scale. Re-check BG in 30 minutes. THE FIRST DOSE OF SC INSULIN OUGHT TO BE ADMINISTERED BEFORE DISCONTINUING THE INFUSION. AN OVERLAP OF 2-3 HOURS IS RECOMMENDED. Continue to monitor the BG hourly., Routine 0146 (Rate/Dose Change - Provider: Colleen Vargas RN)0150 (New Bag - Provider: Colleen Vargas RN)0532 (Rate/Dose Change - Provider: Colleen Vargas RN)0746 (Rate/Dose Change - Provider: Emily Eckert RN)0845 (Rate/Dose Change - Provider: Emily Eckert RN)0951 (Rate/Dose Change - Provider: Emily Eckert RN)1223 (Rate/Dose Change - Provider: Emily Eckert RN)1736 (Rate/Dose Change - Provider: Emily Eckert RN)192 (Rate/Dose Change - Provider: Colleen Vargas RN)2023 (Rate/Dose Change - Provider: Colleen Vargas RN)2116 (Rate/Dose Change - Provider: Colleen Vargas RN)2221 (Rate/Dose Change - Provider: Colleen Vargas RN)2325 (Hold - Provider: Colleen Vargas RN - Reason: Order parameters not met - Comment: per protocol) PRN Medication Order 12/14/2023 12/15/2023 12/16/2023 atropine (0.1 mg/mL) injection 1 mg 1 mg, Intravenous, EVERY 5 MIN PRN, 2 doses, Starting on Sun12/12/23 at 1915, Until 12/16/23 at 1849, Other, vasovagal episode, Call interventional MD. , Routine dextrose 10% infusion(Linked Group 3) 250 mL, at 1,000 mL/hr, Intravenous, EVERY 15 MIN PRN, Starting on Sun12/12/23 at 1831, Until 12/16/23 at 1849, For BG 50-70 mg/dL: Oral treatment preferred: If able to drink, give 120 mL juice or regular (not diet) soda OR if NPO, give 15 gram glucose 40% oral gel massaged into buccal mucosa OR if unconscious or uncooperative, give 25 gram (250 mL) dextrose 10% IV over 15 minutes per protocol OR, if no IV access, 1 mg glucagon IM. For BG less than 50 mg/dL: Oral treatment preferred: If able to drink, give 240 mL juice or regular (not diet) soda OR if NPO, give 30 gram glucose 40% oral gel massaged in buccal mucosa OR if unconscious or uncooperative, give 25 gram (250 mL) dextrose 10% IV over 15 minutes per protocol OR, if no IV access, 1 mg glucagon IM. Recheck BG in 15 minutes. May repeat juice/soda, gel, dextrose or glucagon once per episode. Notify provider if hypoglycemia does not resolve after two treatments. Providers should consider the following: administering longer-acting treatments for the duration of active insulin or hypoglycemia agent for persistent hypoglycemia and re-evaluating active insulin orders before administering the next dose. glucagon (Glucagen) (1 mg/mL) injection solution 1 mg(Linked Group 3) 1 mg, Intramuscular, EVERY 15 MIN PRN, Starting on Sun12/12/23 at 183, Until Sun12/16/23 at 1849, Low blood sugar, For BG 50-70 mg/dL: Oral treatment preferred: If able to drink, give 120 mL juice or regular (not diet) soda OR if NPO, give 15 gram glucose 40% oral gel massaged into buccal mucosa OR if unconscious or uncooperative, give 25 gram (250 mL) dextrose 10% IV over 15 minutes per protocol OR, if no IV access, 1 mg glucagon IM. For BG less than 50 mg/dL: Oral treatment preferred: If able to drink, give 240 mL juice or regular (not diet) soda OR if NPO, give 30 gram glucose 40% oral gel massaged in buccal mucosa OR if unconscious or uncooperative, give 25 gram (250 mL) dextrose 10% IV over 15 minutes per protocol OR, if no IV access, 1 mg glucagon IM. Recheck BG in 15 minutes. May repeat juice/soda, gel, dextrose or glucagon once per episode. Notify provider if hypoglycemia does not resolve after two treatments. Providers should consider the following: administering longer-acting treatments for the duration of active insulin or hypoglycemia agent for persistent hypoglycemia and re-evaluating active insulin orders before administering the next dose. , Routine glucose (Glutose) 40% oral geL(Linked Group 3) 15-30 g of glucose, Buccal, EVERY 15 MIN PRN, Starting on Sun12/12/23 at 183, Until Sun12/16/23 at 1849, Low blood sugar, For BG 50-70 mg/dL: Oral treatment preferred: If able to drink, give 120 mL juice or regular (not diet) soda OR if NPO, give 15 gram glucose 40% oral gel massaged into buccal mucosa OR if unconscious or uncooperative, give 25 gram (250 mL) dextrose 10% IV over 15 minutes per protocol OR, if no IV access, 1 mg glucagon IM. For BG less than 50 mg/dL: Oral treatment preferred: If able to drink, give 240 mL juice or regular (not diet) soda OR if NPO, give 30 gram glucose 40% oral gel massaged in buccal mucosa OR if unconscious or uncooperative, give 25 gram (250 mL) dextrose 10% IV over 15 minutes per protocol OR, if no IV access, 1 mg glucagon IM. Recheck BG in 15 minutes. May repeat juice/soda, gel, dextrose or glucagon once per episode. Notify provider if hypoglycemia does not resolve after two treatments. Providers should consider the following: administering longer-acting treatments for the duration of active insulin or hypoglycemia agent for persistent hypoglycemia and re-evaluating active insulin orders before administering the next dose. 1 tube of Glutose-15 contains 15 grams of glucose (net weight of tube = 37.5 grams.), Routine insulin lispro (HumaLOG;Admelog) (100 unit/mL) subcutaneous injection vial 0-40 Units 0-40 Units, Subcutaneous, 3 TIMES DAILY PRN, Starting on Sun12/14/23 at 1053, Until Sun12/16/23 at 1849, with snacks, [employer] Give 1 unit for every 2 grams carbohydrate. Hold if not eating or if BG less than 70 mg/dL., Routine 1051 (Given - Provid er: Kimberly Colorado RN) ipratropium-albuteroL (Duoneb) 0.5 mg-3 mg(2.5 mg base)/3 mL nebulizer solution 3 mL 3 mL, Nebulization, 4 TIMES DAILY PRN, Starting on Sun12/13/23 at 1136, Until Sun12/16/23 at 1849, Wheezing, Routine lidocaine (Xylocaine) 1% (10 mg/mL) injection 3 mg 3 mg (0.3 mL), Subcutaneous, ONCE PRN, 1 dose, Starting on Sun12/12/23 at 1831, Until 12/16/23 at 1849, for discomfort with PIV insertion, Routine lidocaine (Xylocaine) 1% (10 mg/mL) injection 3 mg 3 mg (0.3 mL), Subcutaneous, ONCE PRN, 1 dose, Starting on Sun12/12/23 at 2128, Until 12/16/23 at 1849, for discomfort with PIV insertion, Routine nitroGLYcerin (Nitrostat) disintegrating tablet 0.4 mg 0.4 mg, Sublingual, EVERY 5 MIN PRN, Starting on Sun12/12/23 at 2128, Until 12/16/23 at 1849, Chest pain, May repeat every 5 minutes for a total of three doses. Notify provider if chest pain not relieved with nitroglycerin. Do not administer nitroglycerin if the patient has received or taken phosphodiesterase (PDE-5) inhibitors such as sildenafil, tadalafil or vardenafil within the last 24 to 72 hours., Routine potassium chloride ER (Klor-Con M) crystal tablet 20 mEq(Linked Group 4) 20 mEq, Oral, EVERY 4 HOURS PRN, Starting on Sun12/12/23 at 2048, Until 12/16/23 at 1849, hypokalemia, Administer for serum potassium (mMol/L) of 3.9 - 4 potassium chloride ER particle/crystal tablets (Klor-Con M) may be broken in half and each half swallowed separately. Tablets can be dissolved in ~4 ounces of water; allow ~2 minutes to dissolve, stir well and drink immediately. Do not crush, chew, or suck on tablet., Routine 0648 (See Alternativ e - Provider: Anthony Escalante RN) potassium chloride ER (Klor-Con M) crystal tablet 40 mEq(Linked Group 4) 40 mEq, Oral, EVERY 4 HOURS PRN, Starting on Sun12/12/23 at 2048, Until 12/16/23 at 184, hypokalemia, Administer for serum potassium (mMol/L) of 3.6 - 3.8 potassium chloride ER particle/crystal tablets (Klor-Con M) may be broken in half and each half swallowed separately. Tablets can be dissolved in ~4 ounces of water; allow ~2 minutes to dissolve, stir well and drink immediately. Do not crush, chew, or suck on tablet., Routine 0648 (Given - Provid er: Anthony Escalante RN) sodium chloride 0.9 % (flush) (BD PosiFlush Normal Saline 0.9) flush 5-20 mL 5-20 mL, Intravenous, EVERY 1 MIN PRN, Starting on Sun12/12/23 at 1831, Until 12/16/23 at 1849, flush, Flush pertains to all indwelling lines. Flush per protocol found in the job aid using the link provided on this medication record., Routine sodium chloride 0.9 % (flush) (BD PosiFlush Normal Saline 0.9) flush 5-20 mL 5-20 mL, Intravenous, EVERY 1 MIN PRN, Starting on Sun12/12/23 at 2128, Until Sun12/16/23 at 1849, flush, Flush pertains to all indwelling lines. Flush per protocol found in the job aid using the link provided on this medication record., Routine Linked Groups Order Group 1: POCT Fingerstick Glucose (CANCELED) Routine, EVERY 4 HOURS, First occurrence on Sun12/14/23 at 2330, Until Specified, Consider choosing EVERY 4 HOURS as frequency for: - Type 1 Diabetes - At least 24 hours after coming off an insulin drip - At least 24 hours after admission for DKA - Hypoglycemia unawareness - Patients who are otherwise unstable Select the same frequency for the correction bolus insulin order And insulin lispro (HumaLOG;Admelog) (100 unit/mL) subcutaneous injection vial 2-12 UnitsJump to med 2-12 Units, Subcutaneous, EVERY 4 HOURS SCHEDULED, First dose on Sun12/15/23 at 0015, Until Discontinued, CORRECTION BOLUS [2-12 Units] Resistant Sliding Scale (BG in mg/dL) Correction Factor 10 (1 unit of insulin is expected to drop the glucose 10 mg/dL) ?? BG 140 - 160 Give 2 units BG 161 - 180 Give 4 units BG 181 - 200 Give 6 units BG 201 - 220 Give 8 units BG 221 - 240 Give 10 units BG greater than 240, give 12 units and recheck BG in 2 hours. - If recheck BG is LESS than 240, give no insulin and resume schedule. - If recheck BG is GREATER than or EQUAL to 240, give 12 units and repeat BG in 2 hours (no more than 3 times) & call for new insulin orders. DO NOT hold if NPO, unless specifically directed to do so by written order. ?? Per Inpatient Subcutaneous Insulin Policy, recheck a BG of greater than 240 mg/dL in 2 hours, Routine Group 2: tiotropium bromide (Spiriva Respimat) 2.5 mcg/actuation inhaler 2 puffJump to med 2 puff, Inhalation, DAILY, First dose on Sun12/13/23 at 0900, Until Discontinued, Must be primed prior to first administration Interchanged for Anoro Ellipta per Pharmacy and Therapeutics (P&T) Committee therapeutic interchange policy. , Routine And olodateroL (Striverdi Respimat) inhaler 2 puffJump to med 2 puff, Inhalation, DAILY, First dose on Marcelle 12/13/23 at 0900, Until Discontinued, Interchanged for Anoro Ellipta per Pharmacy and Therapeutics (P&T) Committee therapeutic interchange policy. , Routine Group 3: glucose (Glutose) 40% oral geLJump to med 15-30 g of glucose, Buccal, EVERY 15 MIN PRN, Starting on Sun12/12/23 at 1831, Until 12/16/23 at 1849, Low blood sugar, For BG 50-70 mg/dL: Oral treatment preferred: If able to drink, give 120 mL juice or regular (not diet) soda OR if NPO, give 15 gram glucose 40% oral gel massaged into buccal mucosa OR if unconscious or uncooperative, give 25 gram (250 mL) dextrose 10% IV over 15 minutes per protocol OR, if no IV access, 1 mg glucagon IM. For BG less than 50 mg/dL: Oral treatment preferred: If able to drink, give 240 mL juice or regular (not diet) soda OR if NPO, give 30 gram glucose 40% oral gel massaged in buccal mucosa OR if unconscious or uncooperative, give 25 gram (250 mL) dextrose 10% IV over 15 minutes per protocol OR, if no IV access, 1 mg glucagon IM. Recheck BG in 15 minutes. May repeat juice/soda, gel, dextrose or glucagon once per episode. Notify provider if hypoglycemia does not resolve after two treatments. Providers should consider the following: administering longer-acting treatments for the duration of active insulin or hypoglycemia agent for persistent hypoglycemia and re-evaluating active insulin orders before administering the next dose. 1 tube of Glutose-15 contains 15 grams of glucose (net weight of tube = 37.5 grams.), Routine Or dextrose 10% infusionJump to med 250 mL, at 1,000 mL/hr, Intravenous, EVERY 15 MIN PRN, Starting on Sun12/12/23 at 1831, Until 12/16/23 at 1849, For BG 50-70 mg/dL: Oral treatment preferred: If able to drink, give 120 mL juice or regular (not diet) soda OR if NPO, give 15 gram glucose 40% oral gel massaged into buccal mucosa OR if unconscious or uncooperative, give 25 gram (250 mL) dextrose 10% IV over 15 minutes per protocol OR, if no IV access, 1 mg glucagon IM. For BG less than 50 mg/dL: Oral treatment preferred: If able to drink, give 240 mL juice or regular (not diet) soda OR if NPO, give 30 gram glucose 40% oral gel massaged in buccal mucosa OR if unconscious or uncooperative, give 25 gram (250 mL) dextrose 10% IV over 15 minutes per protocol OR, if no IV access, 1 mg glucagon IM. Recheck BG in 15 minutes. May repeat juice/soda, gel, dextrose or glucagon once per episode. Notify provider if hypoglycemia does not resolve after two treatments. Providers should consider the following: administering longer-acting treatments for the duration of active insulin or hypoglycemia agent for persistent hypoglycemia and re-evaluating active insulin orders before administering the next dose. Or glucagon (Glucagen) (1 mg/mL) injection solution 1 mgJump to med 1 mg, Intramuscular, EVERY 15 MIN PRN, Starting on Sun12/12/23 at 1831, Until Sun12/16/23 at 1849, Low blood sugar, For BG 50-70 mg/dL: Oral treatment preferred: If able to drink, give 120 mL juice or regular (not diet) soda OR if NPO, give 15 gram glucose 40% oral gel massaged into buccal mucosa OR if unconscious or uncooperative, give 25 gram (250 mL) dextrose 10% IV over 15 minutes per protocol OR, if no IV access, 1 mg glucagon IM. For BG less than 50 mg/dL: Oral treatment preferred: If able to drink, give 240 mL juice or regular (not diet) soda OR if NPO, give 30 gram glucose 40% oral gel massaged in buccal mucosa OR if unconscious or uncooperative, give 25 gram (250 mL) dextrose 10% IV over 15 minutes per protocol OR, if no IV access, 1 mg glucagon IM. Recheck BG in 15 minutes. May repeat juice/soda, gel, dextrose or glucagon once per episode. Notify provider if hypoglycemia does not resolve after two treatments. Providers should consider the following: administering longer-acting treatments for the duration of active insulin or hypoglycemia agent for persistent hypoglycemia and re-evaluating active insulin orders before administering the next dose. , Routine Group 4: potassium chloride ER (Klor-Con M) crystal tablet 40 mEqJump to med 40 mEq, Oral, EVERY 4 HOURS PRN, Starting on Sun12/12/23 at 2048, Until 12/16/23 at 1849, hypokalemia, Administer for serum potassium (mMol/L) of 3.6 - 3.8 potassium chloride ER particle/crystal tablets (Klor-Con M) may be broken in half and each half swallowed separately. Tablets can be dissolved in ~4 ounces of water; allow ~2 minutes to dissolve, stir well and drink immediately. Do not crush, chew, or suck on tablet., Routine Or potassium chloride ER (Klor-Con M) crystal tablet 20 mEqJump to med 20 mEq, Oral, EVERY 4 HOURS PRN, Starting on Sun12/12/23 at 2048, Until 12/16/23 at 1849, hypokalemia, Administer for serum potassium (mMol/L) of 3.9 - 4 potassium chloride ER particle/crystal tablets (Klor-Con M) may be broken in half and each half swallowed separately. Tablets can be dissolved in ~4 ounces of water; allow ~2 minutes to dissolve, stir well and drink immediately. Do not crush, chew, or suck on tablet., Routine documented in this encounter Care Teams Hse Specialist Relationship Specialty Start Date End Date Leo Alegre DO [address] [place] [address] PCP - General Family Medicine 03/03/21 documented as of this encounter
--- OUTSIDE RECORDS SUMMARY | 2024-06-18 14:56 | XMS_ITS | Encounter Summary ---
Author Organization [facility] Address [facility] [place] [address] Care Team Providers Care Director Patient Accounting Name Role Phone Leo Alegre DO Primary Care Provider +1- [phone] Encounter Details Date Type Department Care Team (Late st Contact Info) Description 12/17/2023 Telephone Cardiology at [address] [phone] Alfredo Alfaro [address] [facility] [place] [address] Social History Tobacco Use Types Packs/Day Years Used Date Smoking Tobacco: Former Cigarettes 2.8 30 1 97 - 2002 Smokeless Tobacco: Never Alcohol Use Standard Drinks/Week Comments Not Currently 0 (1 standard drink = 0.6 oz pur e alcohol) [facility] Utilities Answer Date Recorded In the past 12 months has e [employer], gas, oil, or water [employer] threatened to shut off services in your [...] a skilled nursing (including now)? No 12/13/2023 IPV Inpatient Questions [...] encounter Miscellaneous Notes * Telephone Encounter - Alfredo Alfaro RD - 12/17/2023 1:27 PM EST 12/17/23 Martín Mitchell was referred for Medical Nutrition Therapy by Danish Wei MD, per patient request due to newly-diagnosed IDDM. Phoned patient, rang, no answer. Left voicemail with call-back number to schedule telehealth visit through information systems project manager: [phone] Option #2. documented in this encounter Plan of Treatment Upcoming Encounters Date Type Department Care Team (Late st Contact Info) Description 07/02/2024 3:00 PM EDT Office Visit [place] [phone] Leo Flor MD [facility] [place] [address] 08/12/2024 3:40 PM EDT Office [place] [phone] Siva Harrison MD [facility] PULMONARY [place] [address] 09/18/2024 1:00 PM EST Office Visit Cardiology at [address] [phone] Jj Davis MD [facility] [place] [address] documented as of this encounter Visit Diagnoses Not on filedocumented in this encounter Care Teams Director Patient Accounting Relationship Specialty Start Date End Date Leo Alegre DO [address] [place] [address] PCP - General Family Medicine 03/03/21 documented as of this encounter
--- OUTSIDE RECORDS SUMMARY | 2024-06-18 14:56 | XMS_ITS | Encounter Summary ---
Author Organization [facility] Address [facility] [place] [address] Care Team Providers Care Pilot Can Router Name Role Phone Leo Alegre DO Primary Care Provider +1- [phone] Reason for Visit * Consultation (Routine) - Closed Specialty Diagnoses / Procedures Referred By Contac t Referred To Contact Nutrition Diagnoses Coronary artery disease, unspecified vessel or lesion type, unspecified whether angina present, unspecified whether [place] or transplanted heart NUTRITION Initial MNT Abram Wei MD [facility] [place] [address] [facility] [place] [address] Referral ID Status Reason Start Date Expiration Date V isits Requested Visits Authorized [id number] Closed Continuity of Care 12/16/2023 12/15/2024 1 1 Encounter Details Date Type Department Care Team (Latest Contact Info) Description 12/21/2023 2:00 PM EST TH Visit (TeleHealth) Cardiology at [address] [phone] [facility] [address] [place] [id number] Nutritional counseling Social History Tobacco Use Types Packs/Day Years Used Date Smoking Tobacco: Former Cigarettes 2.8 30 1 973 - 2002 Smokeless Tobacco: Never Alcohol Use Standard Drinks/Week Comments Not Currently 0 (1 standard drink = 0.6 oz pur e alcohol) [facility] Utilities Answer Date Recorded In the [...] place to sleep or slept in a long term (including now)? No 12/13/2023 DH IPV Inpatient [...] as of this encounter Progress Notes * Alfredo Alfaro, RD - 12/21/2023 2:00 PM EST Images from the original note were not included. [facility] Cardiovascular Medicine Cardiology Nutrition Assessment [facility] [address] [facility] [address] [place] [phone] Initial Nutrition Assessment 12/21/23 Identification and Chief Complaint Martín Mitchell is a 63 y.o. patient of Leo Alegre DO referred to Cardiology RDN by Danish Wei MD, per patient request for Medical Nutrition Therapy to support lifestyle management of newly-diagnosed IDDM 2 to 3 Years ago. Subjective Lifestyle & Environment Nutrition/Food - Usually eat 2 to 3 pounds of meat/day Past Dietary Patterns PCP ref to primary special educator who was very pro-carbohydrates at 40 grams/meal which Goes against everything I know about eating for diabetes. Been following Keto diet To reverse diabetes. Martín Mitchell's Overall Health Goal at this time is: To reverse diabetes Objective Medications Current Outpatient Medications: losartan (Cozaar) 50 mg tablet, Take 1 [...] 90 days., Disp: 60 tablet, Rfl: 2 Insulin Basaglar KwikPen U-100 100 unit/mL (3 mL) pen, Inject 50 Units subcutaneously 2 times dailyfor 40 days. Indications: type 2 diabetes mellitus, Disp: 40 mL, Rfl: 0 NovoLOG Flexpen U-100 Insulin 100 unit/mL (3 mL) Insulin Pen, Inject 10-20 Units subcutaneously 3 times daily (with meals). Take 10 units with small meals, 15 units with medium meals, and 20 units with large meals., Disp: 15 mL, Rfl: 0 umeclidinium-vilanteroL (Anoro Ellipta) 62.5-25 mcg/actuation Disk with Device, Inhale 1 puff into the lungs daily., Disp: 1 each, Rfl: 3 semaglutide (Ozempic) 0.25 mg or 0.5 mg(2 mg/1.5 mL) Pen Injector, Inject 1 mg subcutaneously once a week., Disp: , Rfl: ketoconazole (NIZORAL) 2 % Cream, as needed., Disp: , Rfl: Labs Lab Results Component Value Date RBC 4.78 12/16/2023 HCT 41.0 12/16/2023 HGB 13.9 12/16/2023 MCV 85.8 12/16/2023 MCHC 33.9 12/16/2023 RDWSD 38.1 12/16/2023 25OHVITD <5 (L) 03/03/2021 NA 133 (L) 12/16/2023 K 3.4 (L) 12/16/2023 CL 97 (L) 12/16/2023 CO2 25 12/16/2023 BUN 26 (H) 12/16/2023 CREATININE 0.85 12/16/2023 ESTGFR 99 12/16/2023 MAGNESIUM 0.89 12/15/2023 CALCIUM 8.9 12/16/2023 PHOS 4.1 12/13/2023 AST 671 (H) 12/13/2023 ALT 109 (H) 12/13/2023 ALKPHOS 55 12/13/2023 Vit D 05/2018 11 taking 50,000 units cholecalcif x 8 weeks 05/2019 12 taking 50,000 units ergocalcif weekly 02/2021 <5 taking 50,000 units weekly Recent Labs 12/13/23 0034 HA1C 10.0* Medical Nutrition Therapy Assessment Estimated body mass index is 42.06 kg/m?? as calculated from the following: Height as of 12/12/23: 180.3 cm (5' 10.98). Weight as of 12/16/23: 136.7 kg (301 lb 6.4 oz). IBW = (78 kg) 172# +/- 10% Kcal need = 25 kcals/kg = 2000 kcals/day Protein need = 137 g/day (27% of calories) SFA < 6% = Fluid needs: 25 to 30 ml/kg ABW = Category BMI => 40.0 Class 3 (high-risk) obesity Nutrition related medication management Patient's nutritional status may be impacted by the following medications: MEDICATION POSSIBLE NUTRIENT DEPLETIONS POSSIBLE SIDE EFFECTS x Betablockers CoQ10 Xerostomia; may mask symptoms of Hypoglycemia in people with diabetes x Diuretics Thiamin (vit B1); Pyridoxine (vit B6), Vit C, Ca, Mg, K, Zn Muscle cramps,dehydration,electrolyte abnormalities x Platelet Inhibitors Fe x Glucophage CoQ10, B6, B12, folates Chronic diarrhea Nutrition-related labs TEST POSSIBLE NUTRIENTS IMPLICATED Vit D Vit D A1c Vit D, chromium, carbohydrate AST/ALT Choline, carbohydrate K and Na Over-hydration Vitamin D Vitamin D deficiency may be used as a marker of cardiovascular risk, promoting accelerated atherosclerosis and subsequent cardiovascular events. Chronic vitamin D deficiency causes secondary hyperparathyroidism, increasing insulin resistance, impairing beta-pancreatic cell function, and enabling the development of metabolic syndrome and diabetes mellitus. Calcitriol regulates the genes involved in insulin production in the pancreas. Martín's continuing deficient vitamin D status despite ongoing supplementation suggests Possible SNPs in genes to metabolize and activate vitamin D (see diagram below). Continued and perhaps increased exogenous supplementation appears to be the only work-around at this time to support body processes which are dependent On sufficient vitamin D. Current clinical diagnoses and above-listed data suggest: Nutrition Diagnoses: Inadequate oral food or beverage intake Excessive fluid intake Inadequate fluid intake x Decreased nutrient need x Altered nutrition related lab values as identified above Increased energy intake Inadequate energy intake Excessive energy intake Evident protein energy malnutrition Inadequate protein intake Excessive protein intake Inadequate bioactive substance intake Excessive bioactive substance intake Inadequate vitamin and/or mineral intake as identified in nutrient analysis Excessive vitamin intake Altered GI function Underweight Involuntary weight loss Involuntary weight gain x Food and Nutrition-Related Knowledge Deficit x Harmful beliefs/attitudes about food- or nutrition-related topics - Keto to reverse diabetes Not ready for diet / lifestyle change Self-monitoring deficit Limited adherence to nutrition related recommendations Undesirable food choices Limited access to foods OTHER: Nutrition Plan Nutrition Recommendations PCP, please check vitamin D level and supplement as indicated Nutrition Intervention Discussed role of genetics in responding favorably to keto diet with just 10% world population; Instructed in using Cronometer to begin recording food intakes; Will review 7-day average at next visit to identify target areas of focus for improved Blood sugar control. E-mailed cardiology nutrition newsletter by signing up here [email or web address] Patient appeared to have good comprehension per questions and comments. Follow-up: 3 weeks Thank you for the privilege of working with this patient. Alfredo Alfaro RDN, LD This is a TeleHealth Nutrition Visit. Patient verbalizes consent to the telehealth visit for nutrition counseling and coaching. cc: Leo Alegre, [address] [place] [address] RD / [facility] [id number] documented in this encounter Plan of Treatment Upcoming Encounters Date Type Department Care Team (Late st Contact Info) Description 07/02/2024 3:00 PM EDT Office Visit Endocrinology at [place] [address] Leo Flor MD [facility] [place] [address] 08/12/2024 3:40 PM EDT Office Visit Pulmonology at [place] [address] Siva Harrison MD [facility] [place] [address] 09/18/2024 1:00 PM EST Office Visit Cardiology at [place] [address] Jj Davis MD [facility] [place] [address] Scheduled Referrals Name Type Priority Associated Diagnoses Orde r Schedule Referral to Nutrition Services Outpatient Referral Routine Coronary artery disease, unspecified vessel or lesion type, unspecified whether angina present, unspecified whether [place] or transplanted heart Ordered: 12/16/2023 documented as of this encounter Visit Diagnoses Diagnosis Nutritional counseling documented in this encounter Care Teams Pilot Can Router Relationship Specialty Start Date End Date Leo Alegre DO [address] [place] [address] PCP - General Family Medicine 03/03/21 documented as of this encounter
--- OUTSIDE RECORDS SUMMARY | 2024-06-18 14:56 | XMS_ITS | Encounter Summary ---
Author Organization [facility] [place] [address] Care Team Providers Care Air Bag Stripper Name Role Phone Leo Alegre DO Primary Care Provider +1- [phone] Encounter Details Date Type Department Care Team (Late st Contact Info) Description 01/02/2024 Orders Only Pulmonology at [facility] [place] [phone] Carmelita Red RN Chronic obstructive pulmonary disease, unspecified COPD type; Cigarette nicotine dependence in remission Social History Tobacco Use Types Packs/Day Years Used Date Smoking Tobacco: Former Cigarettes 2.8 30 1 973 - 2002 Smokeless Tobacco: Never Alcohol Use Standard Drinks/Week Comments Not Currently 0 (1 standard drink = 0.6 oz pur e alcohol) [facility] Utilities Answer Date Recorded In the past 12 months has e electric, gas, oil, or water company [...] 3:00 PM EDT Office Visit Endocrinology at [address] Leo Flor MD [facility] [place] [address] 08/12/2024 3:40 PM EDT Office [place] [address] Siva Harrison MD [facility] [place] [address] 09/18/2024 1:00 PM EST Office [place] [phone] Jj Davis MD [facility] [place] [address] documented as of this encounter Visit Diagnoses Diagnosis Chronic obstructive pulmonary disease, unspecified COPD type Cigarette nicotine dependence in remission Tobacco use disorder documented in this encounter Care Teams Air Bag Stripper Relationship Specialty Start Date End Date Leo Alegre DO [address] [place] [address] PCP - General Family Medicine 03/03/21 documented as of this encounter
--- OUTSIDE RECORDS SUMMARY | 2024-06-18 14:57 | XMS_ITS | Encounter Summary ---
Author Organization [facility] [place] [address] Care Team Providers Care Clerical Proofreader Name Role Phone Leo Alegre DO Primary Care Provider [phone] Reason for Visit * Auth/Cert (Routine) Specialty Diagnoses / Procedures Referred By Contac t Referred To Contact Diagnoses STEMI (ST elevation myocardial infarction) STEMI Procedures CORONARY ANGIOGRAPHY Sergey Nava MD [facility] [place] [address] [facility] Referral ID Status Reason Start Date Expiration Date Visits Re quested Visits Authorized [id number] 1 1 Encounter Details Date Type Department Care Team (Late st Contact Info) Description 12/12/2023 6:30 PM EST - 12/12/2023 7:33 PM EST [place] [address] Sergey Nava MD [facility] [place] [address] CARDIAC CATHETERIZATION Social History Tobacco Use Types Packs/Day Years Used Date Smoking Tobacco: Former Cigarettes 2.8 30 1 973 - 2002 Smokeless Tobacco: Never Alcohol Use Standard Drinks/Week Comments Not Currently 0 (1 standard drink = 0.6 oz pur e alcohol) [facility] Utilities Answer Date Recorded In the past 12 months has [employer] electric, gas, oil, or water company threatened [...] place to sleep or slept in a jail (including now)? No 12/13/2023 DH IPV Inpatient [...] Sign Reading Time Taken Comments Blood Pressure 101/76 12/12/2023 7:30 PM EST Pulse 94 12/12/2023 7:30 PM EST Temperature - - Respiratory Rate 20 12/12/2023 7:30 PM EST Oxygen Saturation 97% 12/12/2023 7:30 PM EST Inhaled Oxygen Concentration - - Weight 136 kg (299 lb 13.2 oz) 12/12/2023 6:51 P M EST Height - - Body Mass Index 42.06 12/12/2023 9:46 PM [...] nephrolithiasis who presented as a transfer from [facility] for inferior STEMI, now s/p PCI to [facility], with course complicated by DKA. Follow-up Recommendations for Providers: - Referral to Cardiology at [facility] placed. Requires follow-up TTE [...] take 10/15/20U depending on size of meal. [facility] endocrinology referral placed at time of discharge. Also referral placed to [facility] choreography director. - Ensure patient remains on DAPT for 12 months. Plavix can be discontinued at 12 months depending on future intervention. Discharge Diagnoses (Hospital Problems) and Secondary Diagnoses (Chronic Problems): Active Hospital Problems Diagnosis STEMI (ST elevation myocardial infarction) Resolved Hospital Problems No resolved problems to display. Procedures: TTE [facility] History of Presentation (per 12/12/2023 Admission H&P): Martín Alvarado is a 63 y.o. male w/ PMH HTN, NIDDM2, COPD, obesity, and nephrolithiasis who presentsas a transfer from [facility] for inferior STEMI. Patient states he [...] and received TNK. He was transferred to [facility] for catheterization. Per Dr. [...] > 3.5 < > 7.4* CO2 25 25 24 24 < > 19* < [...] who have questions please contact the health child day care provider that requested your imaging first. : -Left [...] no significant valve disease. -Other than a icdsx-cq-vfgy study performed on yesterday's date with similar [...] were hospitalized - You were admitted to [facility] for a STEMI (heart [...] have placed a referral to see a [facility] Machine Quilt Stuffer, as well as a choreography director, and to start Cardiac Rehabilitation. It is [...] the Kaylee. Follow-up with your PCP and access specialist to further work on titrating insulin. - [...] Time Provider Department Center 02/12/2024 12:20 PM [facility] CT [address] [facility] RAD CT [facility] Rad 02/12/2024 1:40 PM Siva Harrison MD [facility] PULM [facility] Please call your PCP on Sunday to request a follow-up visit of this hospitalization. The Cardiology clinic will contact you to schedule an initial visit. If you have not heard from them in the next week, please call [facility] and request the Cardiology clinic to discuss follow-up. Your Inpatient Medical Team at [facility] Name(s) of your inpatient provider(s): Abram Wei MD, Davy Schwab MD Your Primary Care Provider: Leo Alegre DO [phone] For questions regarding this document or issues relating to this hospitalization on the Cardiology Service, please contact your inpatient physician through the [facility] Correspondence Dictator . Issues after hours and on weekends will be handled by the sales support rep on-call. General Instructions None Future Appointments and Orders Future Appointments and Orders Future Appointments Provider Department Dept Phone 02/12/2024 12:20 PM [facility] CT [address] CT Scan at [facility] Arrive at: [facility] RADIOLOGY [phone] 02/12/2024 1:40 PM Siva Harrison MD Pulmonology at [facility] Arrive at: [place] [place] [facility] [address] [phone] Future Orders Complete By Expires Referral to Cardiac Rehab [[id number] Custom] As directed Process Instructions: If no progress note charted, please enter Clinical details in comments. Scheduling Instructions: Questions: My question or request is: STEMI, PCI- cardiac rehab at [facility] Referral to Cardiology [[email or web address] Custom] As directed Process Instructions: If no progress note charted, please enter Clinical details in comments. Scheduling Instructions: Questions: My question or request is: 63M, STEMI s/p PCI to LCX, has additional unrevascularized disease. Establishing care. Would consider [facility] Referral to Endocrinology [[email or web address] Custom] As directed Process Instructions: If no progress note charted, please enter Clinical details in comments. Scheduling Instructions: Questions: My question or request is: 63 yo hospitalized for AL course complicated by DKA, significant insulinrequirements as inpatient. Requires close follow-up. Specialist Level of Involvement: Specialist Management Is patient being referred for thyroid nodule?: No Provider Contact Information: Leo Alegre DO [address] [facility] [address] Discharge References/Attachments: Discharge References/Attachments Diabetes Diet Meal Planning: General Info (Israeli) How to Prevent a Second Heart Attack: Video (Israeli) After a Heart Attack: Taking an Aspirin or Antiplatelet: Video (Israeli) Diabetic Ketoacidosis (DKA) (Israeli) PCI (Percutaneous Coronary Intervention): Post-op (Israeli) Cardiac Rehabilitation (Israeli) documented in this encounter Discharge Instructions * Patient Instructions* Davy Schwab MD - 12/15/2023 6:00 PM EST Instructions on Discharge to Home Why you were hospitalized - You were admitted to [facility] for a STEMI (heart [...] have placed a referral to see a [facility] Machine Quilt Stuffer, as well as a choreography director, and to start Cardiac Rehabilitation. It is [...] the Kaylee. Follow-up with your PCP and access specialist to further work on titrating insulin. - [...] Time Provider Department Center 02/12/2024 12:20 PM [facility] CT [address] [facility] [address] [facility] Rad 02/12/2024 1:40 PM Siva Harrison MD [facility] Please call your PCP on Sunday to request a follow-up visit of this hospitalization. The Cardiology clinic will contact you to schedule an initial visit. If you have not heard from them in the next week, please call [facility] and request the Cardiology clinic to discuss follow-up. Your Inpatient Medical Team at [facility] Name(s) of your inpatient provider(s): Abram Wei MD, Davy Schwab MD Your Primary Care Provider: Leo Alegre DO [phone] For questions regarding this document or issues relating to this hospitalization on the Cardiology Service, please contact your inpatient physician through the [facility] Correspondence Dictator . Issues after hours and on weekends will be handled by the sales support rep on-call. * Attachments The following attachments cannot be sent through Care Everywhere. * Diabetes Diet Meal Planning: General Info (Israeli) * How to Prevent a Second Heart Attack: Video (Israeli) * After a Heart Attack: Taking an Aspirin or Antiplatelet: Video (Israeli) * Diabetic Ketoacidosis (DKA) (Israeli) * PCI (Percutaneous Coronary Intervention): Post-op (Israeli) * Cardiac Rehabilitation (Israeli) documented in this encounter Medications at Time [...] days. 60 tablet 2 12/16/2023 03/15/2024 Insulin Basaglar KwikPen U-100 100 unit/mL (3 mL) penIndications:type 2 [...] PCP: Leo Alegre DO PCP phone number: [phone] Date of Admission: 12/12/2023 ( Hospital Day 3 days ) Service: Cardiology S1 Responsible Attending:Abram Wei MD ID: Martín Alvarado is a 63 y.o. male with PMH notable for HTN, NIDDM2, COPD, BP, obesity, and nephrolithiasis who presented as a transfer from [facility] for inferior STEMI, now s/p PCI to [facility], with course c/b DKA. 24 Hour Events: [...] NEUTROABS 11.35* 12.55* -- 17.78* Recent Labs 12/15/23 0403 12/14/23 2155 12/14/23 1802 NA 132* 132* 130* K 3.5 3.6 3.8 CL 94* 96* 95* CO2 24 23 21* BUN 26* 28* 26* CREATININE 0.88 0.91 0.83 GLUCOSE 121 148 246* ANIONGAP 14 13 14 Recent Labs 12/15/23 0403 12/14/23 2155 12/14/23 1802 12/14/23 0009 12/13/23 1956 12/13/23 0034 12/12/231999 CALCIUM 9.2 8.9 8.9 < > 9.0 < > 8.1* MAGNESIUM -- -- -- -- 0.90 -- 0.66* PHOS -- -- -- -- 4.1 -- 4.8* < > = values in this interval not displayed. Recent Labs 12/13/23 003 BILITOT 1.3 BILIDIR 0.2 ALBUMIN 3.9 ALKPHOS [...] no significant valve disease. -Other than a ymnbt-uq-gmdj study performed on yesterday's date with similar [...] who have questions please contact the health child day care provider that requested your imaging first. Medications: losartan 25 mg Oral Daily ### metoproloL tartrate 25 mg Oral Q6H MELCHOR ### spironolactone 25 mg Oral Daily ### insulin lispro 0-40 Units Subcutaneous TID ### insulin glargine (Lantus;Semglee) (100 unit/mL) subcutaneous [...] chloride ER insulin regular human Stopped (12/14/23 9535) Assessment: Martín Alvarado is a 63 y.o. male with PMH notable for HTN, NIDDM2, COPD, BP, obesity, and nephrolithiasis who presented as a transfer from [facility] for inferior STEMI, now s/p PCI [...] MD PGY-3, Internal Medicine Cardiology S1, Pager #[phone] 12/15/23 Cardiology Staff - Progress Note This patient was seen and examined on morning rounds with the inpatient S1 team. I agree with the findings and plan of care per Ryan Salas (medical housestaff) which we discussed on rounds. Pleaserefer to his note above for details. * Sylvester Tobar RCP - 12/14/2023 11:34 PM EST Patient was [...] refused) Nares Assessment WDL WDL * Tatiana Zazueta PT - 12/14/2023 2:31 PM EST PT Note Pt up walking with Cardiac vocational rehabilitation specialist. Pt will benefit from continued ambulation with nursing and mobility techs. Will place pt on walk list for mobility techs. No formal PT needs at this time. Tatiana Zazueta PT Pager [phone] * Janina Moon APRN - 12/14/2023 7:47 [...] CHO count level 2 Janina Moon APRN [facility] Endocrinology Diabetes Management Pager [phone] 20 minutes of this 35 minute visit [...] PCP: Leo Alegre DO PCP phone number: [phone] Date of Admission: 12/12/2023 ( Hospital Day 2 days ) Service: Cardiology S1 Responsible Attending:Jon Root MD ID: Martín Alvarado is a 63 y.o. male with PMH notable for HTN, NIDDM2, COPD, BP, obesity, and nephrolithiasis who presented as a transfer from [facility] for inferior STEMI, now s/p PCI to [facility], with course c/b DKA. 24 Hour Events: [...] Labs 12/14/23 0959 12/14/23 0336 12/14/23 0009 12/13/23 1956 NA 132* 133* 134* 133* K 3.8 3.7 3.7 3.5 CL 96* 100 101 99 CO2 24 19* 18* 19* BUN 24* 27* 29* 31* CREATININE 0.89 0.81 0.94 1.03 GLUCOSE 212* -- 152 206* ANIONGAP 12 14 15 15 Recent Labs 12/14/23 0959 12/14/23 0336 12/14/23 0009 12/13/23 1956 12/13/23 0034 12/12/231999 CALCIUM 9.1 8.9 9.0 9.0 < > 8.1* MAGNESIUM -- -- -- 0.90 -- 0.66* PHOS -- -- -- 4.1 -- 4.8* < > = values in this interval not displayed. Recent Labs 12/13/23 003 BILITOT 1.3 BILIDIR 0.2 ALBUMIN 3.9 ALKPHOS [...] no significant valve disease. -Other than a clarb-ah-rmox study performed on yesterday's date with similar [...] who have questions please contact the health child day care provider that requested your imaging first. Medications: losartan 25 mg Oral Daily ### metoproloL tartrate 25 mg Oral Q6H MELCHOR ### spironolactone 25 mg Oral Daily ### insulin glargine (Lantus;Semglee) (100 unit/mL) subcutaneous injection 60 Units Subcutaneous BID ### insulin lispro 0-40 Units Subcutaneous TID ### tiotropium bromide 2 puff Inhalation Daily [...] ER insulin regular human 5.37 Units/hr (12/14/23 0951) Assessment: Martín Alvarado is a 63 y.o. male with PMH notable for HTN, NIDDM2, COPD, BP, obesity, and nephrolithiasis who presented as a transfer from [facility] for inferior STEMI, now s/p PCI [...] MD PGY-3, Internal Medicine Cardiology S1, Pager #[phone] 12/14/23 Cardiology Staff - Progress Note This [...] PCP: Leo Alegre DO PCP phone number: [phone] Date of Admission: 12/12/2023 ( Hospital Day 1 day ) Service: Cardiology S1 Responsible Attending:Frances Eisenberg MD ID: Martín Alvarado is a 63 y.o. male with PMH notable for HTN, NIDDM2, COPD, BP, obesity, and nephrolithiasis who presented as a transfer from [facility] for inferior STEMI, now s/p PCI to LCX, with course c/b DKA. 24 Hour Events: - Admitted overnight for STEMI. See H&P. - S/p PCI to LCX. Complex 3-vessel disease noted. LVEDP 31mmHg; started diuresis. - Insulin gtt started for DKA noted upon admission. Subjective: - Seen at time of downgrade from CV - Feeling well; CP has resolved - [...] Recent Labs 12/13/23 0750 12/13/23 0400 12/13/23 0034 12/12/231999 CALCIUM 8.4* 8.3* 8.1* 8.1* MAGNESIUM -- -- -- 0.66* PHOS -- -- -- 4.8* Recent Labs 12/13/23 0034 BILITOT 1.3 BILIDIR 0.2 ALBUMIN 3.9 ALKPHOS 55 ALT 109* AST 671* Recent Labs 12/13/234 TSH 0.32 Recent Labs 12/13/2333 HA1C 10.0* [...] no significant valve disease. -Other than a ypjkw-yv-befl study performed on yesterday's date with similar [...] who have questions please contact the health child day care provider that requested your imaging first. Medications: tiotropium [...] nephrolithiasis who presented as a transfer from [facility] for inferior STEMI, now s/p PCI [...] ejection fraction #HTN #Metabolic syndrome - See [facility] report - Anticipate CTS evaluation - [...] MD PGY-3, Internal Medicine Cardiology S1, Pager #[phone] 12/13/23 documented in this encounter H&P Notes * Dorys Cardoza MD - 12/13/2023 12:00 AM EST Images from the original note were not included. Cardiology ICU H&P Patient info: Name: Martín Alvarado : 1960 PCP: Leo Alegre DO PCP phone number: [phone] Date of Admission: 12/12/2023 ( Hospital Day 0 days ) Attending:Frances Eisenberg MD ID: Martín Alvarado is a 63 y.o. male w/ PMH HTN, NIDDM2, COPD, obesity, and nephrolithiasis who presents as a transfer from [facility] for inferior STEMI. Patient states he [...] and received TNK. He was transferred to [facility] for catheterization. Per Dr. [...] in the last 7068 hours. Invalid input(s): [id number] Recent Labs 12/12/23220512/12/23 2114 12/12/23201112/12/23 1923 12/12/23 1818 POCGLU 250* 361* 426* 463* 562* [...] and nephrolithiasis who presentsas a transfer from [facility] for STEMI. Findings notable for 100% proximal Lcx lesion now s/p successful PCI and complex 3VD. Will continue medical management for now and continue to explore options for revascularization. In the lab scientist, patient became hypotensive with pressor requirement but [...] disease. Patient in shock acutely in the lab scientist requiring high dose epi and norepi, able [...] of two midnights or is on the CMS inpatient only procedure list (status C) due [...] Frances Eisenberg MD Cardiovascular Medicine Personal Pager [phone] 12/13/2023 10:47 AM documented in this encounter [...] in the outpatient cardiac rehabilitation program at [facility] in [facility] was discussed. Patient agrees to [...] Type: *No Product type* / Secondary Insurance: [employer] PLANS MANAGED MEDICAID Prescription Coverage: Yes This plan was formulated with input from patient and team. All are in agreement with plan. * Plan of Care - Colleen Vargas RN - 12/14/2023 2:49 [...] Appropriate) * Consult Note - Xavier Navarro EMS DIRECTOR - 12/13/2023 3:10 PM EST Respiratory Care [...] disease. Patient in shock acutely in the lab scientist requiring high dose epi and norepi, able [...] Medications: Laboratory: No results found for: PHART, NEW5LHD, PO2ART, TPH8LZQ, BEART Diagnostic Studies: Last Chest X-ray: Results [...] who have questions please contact the health child day care provider that requested your imaging first. Current airway: [...] Team, bedside nurse, medical record, and Patient SUPERVISOR DIALS Introduced self/reviewed role; services accepted. Admitted From: Transfer from another hospital Location: [facility] Reason for Hospitalization: chest pain, sweating Covid [...] surrogate would be surrogate decision maker per [place] surrogate decision making law. (Only good for 180 days) Any patient receiving care in [place] must abide by [place] law. The hierarchy for surrogate decision making [...] (i) The agent with financial power of business attorney or a conservator appointed in accordance with RSA 464-A. (j) The guardian of the patient???s estate. Advance Care Planning: Attempt Cardiopulmonary Resuscitation - Inpatient <no information> -Advanced Directive: No, need to discuss (Referral sent to OCM - Vessel Scrapper Helper) Current Coping/Education/Information Needs: None noted Current Functional [...] In the past 12 months has the electric, gas, oil, or water company threatened [...] Current DME: none Home Address confirmed as: [address] [place] [id number] Social & Family Supports: All names listed below confirmed with patient as current and correct Extended Emergency Contact Information Primary Emergency Contact: [place] Address: [address] [place] [address] Mobile Relation: Friend Current Care Provided by: [...] Type: *No Product type* / Secondary Insurance: [employer] PLANS MANAGED MEDICAID ONLY if patient has Medicare A&B - Does this patient have secondary insurance?: Yes ; Prescription Coverage: Yes Preferred Pharmacy: [facility] - [address] [facility] [address] Status: Patient is a : No Primary Care Provider confirmed: Leo Alegre DO [phone] Patient/Caregiver Goals of Treatment: Potential Needs for [...] SIOMARA Costa * Consult Note - Janina Moon APRN - 12/13/2023 10:44 AM EST Diabetes Management Team Inpatient Consult Date of Consultation: 12/13/2023 Consult Requested by: Cardiology Reason for Consultation: Martín Alvarado is a 63 y.o. male with PMH significant for DM who was admitted on 12/12/2023 currently being treated for STEMI. We are being consulted to assist with diabetes management and to provide a review of half-way diabetes care. Diabetes History: Martín Alvarado has had diabetes for about 3 [...] Daily heparin (porcine) 5,000 Units Subcutaneous Q8H MELCHOR metoproloL tartrate 12.5 mg Oral 2 times [...] care for your patient Janina Moon APRN [facility] Endocrinology Diabetes Management Pager [phone] 70 minutes of this 80 minute visit [...] right radial site CDI. Pulses palpable. In lab scientist, 1 stent to LCX, and started on [...] Operative Note Patient Name: Martín Alvarado : [id number] MR#: [id number] Case Date: 12/12/2023 Surgeon: Surgeon(s) and Role: [...] with a 4.0 x 22 mm OnyxFrontier DAYNA post-dilated with a 4.5 NC balloon. - [...] 3:00 PM EDT Office Visit Endocrinology at [address] Leo Flor MD [facility] [place] [address] 08/12/2024 3:40 PM EDT Office [place] [address] Siva Harrison MD [facility] [place] [address] 09/18/2024 1:00 PM EST Office Visit Cardiology at [address] Jj Davis MD [facility] [place] [address] Scheduled Orders Name Type Priority Associated Diagnoses [...] 4:01 AM EST DIFFERENTIAL, AUTOMATED Routine 12/16/19 4:01 AM EST CBC (WITH DIFF) Routine [...] 4:03 AM EST DIFFERENTIAL, AUTOMATED Routine 12/15/19 4:03 AM EST BETA HYDROXYBUTYRATE Routine 12/15/2023 [...] (WITH DIFF) Routine 12/13/2023 1:56 AM EST POCT GLUCOSE Routine 12/13/2023 12:40 AM EST [...] Glucose, POC 91 65 - 199 mg/dL [facility] Comment: Supplemental ranges: <140 mg/dL before meals <180 mg/dL all other times of the day Blood 12/16/2023 3:13 PM EST 12/16/2023 3:13 PM EST Abram Wei MD POINT OF CARE TEST ORDERABLES [facility] [place] [address] * (ABNORMAL) POCT Glucose (12/16/2023 11:36 AM EST) Glucose, POC 225(H) 65 - 199 mg/dL [facility] Comment: Supplemental ranges: <140 mg/dL before meals <180 mg/dL all other times of the day Blood 12/16/2023 11:3 6 AM EST 12/16/2023 11:36 AM EST Abram Wei MD POINT OF CARE TEST ORDERABLES [facility] [place] [address] * POCT Glucose (12/16/2023 7:18 AM EST) Glucose, POC 179 65 - 199 mg/dL [facility] Comment: Supplemental ranges: <140 mg/dL before meals <180 mg/dL all other times of the day Blood 12/16/2023 7:18 AM EST 12/16/2023 7:18 AM EST Abram Wei MD POINT OF CARE TEST ORDERABLES Performing Organization Address [facility] Co de Phone Number [facility] [place] [address] * POCT Glucose (12/16/2023 5:02 AM EST) Glucose, POC 109 65 - 199 mg/dL [facility] Comment: Supplemental ranges: <140 mg/dL before meals <180 mg/dL all other times of the day Blood 12/16/2023 5:02 AM EST 12/16/2023 5:02 AM EST Abram Wei MD POINT OF CARE TEST ORDERABLES Performing Organization Address [facility] Co de Phone Number [facility] [place] [address] * (ABNORMAL) Differential, Automated (12/16/2023 4:01 AM EST) Neutrophil % 60.2 % [facility] Neutrophil Absolute 8.78(H) 1.70 - 6.10 x10(3)/mc L [facility] Lymph % 27.2 % [facility] Lymphocytes Abs 4.0(H) 0.9 - 3.2 x10(3)/mc L [facility] Monocyte % 11.8 % [facility] Monocyte Abs 1.7(H) 0.3 - 0.9 x10(3)/mc L [facility] Eos % 0.1 % [facility] Eosinophils Abs 0.0 0.0 - 0.4 x10(3)/mc L [facility] Basophil % 0.3 % [facility] ITAL LABORATORY Baso Absolute 0.0 0.0 - 0.1 x10(3)/[facility] LABORATORY Immature Gran % 0.40 % [facility] Comment: Immature granulocytes(IG's)percentage and absolute count will include metamyelocytes, myelocytes, and promyelocytes. Blood smears from CBCs yielding IG's will be scanned manually for concordance. If this scan disagrees with the automated IG or if promyelocytes are noted, a manual differential will be performed. Immature Gran Absolute 0.06(H) 0.00 - 0.04 x10(3)/[facility] LABORATORY Blood 12/16/2023 4:01 AM EST 12/16/2023 4:12 AM EST Narrative Resulting Agency Comment Spec In Lab John Huitron MD HEMATOLOGY ORDERABLE S [facility] [place] [place] [address] * (ABNORMAL) Hemogram (12/16/2023 4:01 AM EST) White Blood Cell 14.6(H) 4.0 - 9.5 x10(3)/[facility] LABORATORY Red Blood Cell 4.78 4.58 - 5.54 x10(6)/[facility] LABORATORY Hemoglobin 13.9 13.7 - 16.5 g/dL [facility] Hematocrit 41.0 40.5 - 48.5 % [facility] Mean Cell Volume 85.8 82.9 - 93.1 fL [facility] Mean Cell Hemoglobin 29.1 27.5 - 32.1 pg [facility] Mean Cell Hemoglobin Concentration 33.9 32.0 - 35.7 g/dL [facility] Platelet 256 145 - 357 x10(3)/[facility] LABORATORY RDW Standard Deviation 38.1 36.0 - 45.0 fL [facility] RDW coefficient of variation 12.1 11.4 - 13.8 % [facility] Mean Platelet Volume 10.4 7.6 - 12.9 fL [facility] NRBC% auto 0.0 % [facility] LABORAT[facility] NRBC Absolute 0.000 0.000 - 0.000 x10(3)/mc L [facility] Blood 12/16/2023 4:01 AM EST 12/16/2023 4:12 AM EST Narrative Resulting Agency Comment Spec In Lab John Huitron MD HEMATOLOGY ORDERABLE S [facility] [place] [address] * (ABNORMAL) Basic Metabolic Panel (non-fasting) (12/16/2023 4:01 AM EST) Glucose 110 65 - 199 mg/dL [facility] Comment:Diabetes: >=200 mg/d L plus symptoms Blood Urea Nitrogen 26(H) 10 - 20 mg/dL [facility] Creatinine 0.85 0.80 - 1.50 mg/dL [facility] Sodium 133(L) 135 - 145 mmol/L [facility] Potassium 3.4(L) 3.5 - 5.0 mmol/L [facility] Comment: Please note: ??Patients with WBC >100,000 may have falsely elevated Potassium levels. ??For accurate Potassium quantification in these patients send serum separator tube (gold top) for subsequent determinations. ??Contact the Clinical Chemistry Laboratory if there are any questions. Chloride 97(L) 98 - 107 mmol/L [facility] Carbon Dioxide 25 22 - 31 mmol/L [facility] Anion Gap 11 5 - 15 mmol/L [facility] Calcium 8.9 8.5 - 10.5 mg/dL [facility] Est Glomerular Filtration Rate 99 >=60 mL/min/1. 73 m?? [facility] Comment: This patient's estimated GFR was [...] Narrative Resulting Agency Comment Spec In Lab Authorizing Provider Result Erwin Wei MD CHEMISTRY ORDERABLE S Performing Organization Address [facility] Co de Phone Number [facility] [place] [address] * POCT Glucose (12/16/2023 12:25 AM EST) Glucose, POC 188 65 - 199 mg/dL [facility] Comment: Supplemental ranges: <140 mg/dL before meals <180 mg/dL all other times of the day Blood 12/16/2023 12:2 5 AM EST 12/16/2023 12:25 AM EST Narrative Authorizing Provider Result Erwin Wei MD POINT OF CARE TEST ORDERABLES Performing Organization Address [facility] Co de Phone Number [facility] [place] [place] [address] * POCT Glucose (12/15/2023 7:52 PM EST) Glucose, POC 151 65 - 199 mg/dL [facility] Comment: Supplemental ranges: <140 mg/dL before meals <180 mg/dL all other times of the day Blood 12/15/2023 7:52 PM EST 12/15/2023 7:52 PM EST Narrative Authorizing Provider Result Erwin Wei MD POINT OF CARE TEST ORDERABLES Performing Organization Address [facility] Co de Phone Number [facility] [place] [address] * POCT Glucose (12/15/2023 4:47 PM EST) Glucose, POC 188 65 - 199 mg/dL [facility] Comment: Supplemental ranges: <140 mg/dL before meals <180 mg/dL all other times of the day Blood 12/15/2023 4:47 PM EST 12/15/2023 4:47 PM EST Narrative Authorizing Provider Result Erwin Wei MD POINT OF CARE TEST ORDERABLES Performing Organization Address City/[facility]/ZIP Co de Phone Number [facility] [place] [address] * Beta Hydroxybutyrate (12/15/2023 12:53 PM EST) Beta-hydroxybuturat e 0.19 0.00 - 0.30 mmol/L [facility] Comment: This test has not been cleared by the [place] FDA. Performance characteristics of this test were determined by [facility] in accordance with CLIA requirements. This laboratory is qualified under CLIA to perform high-complexity testing. Blood 12/15/2023 12:5 3 PM EST 12/15/2023 1:10 PM EST Narrative Resulting Agency Comment Spec In Lab Frances Eisenberg MD CHEMISTRY ORDERABLES Performing Organization Address [facility] Co de Phone Number [facility] [place] [address] * (ABNORMAL) Basic Metabolic Panel (non-fasting) (12/15/2023 12:53 PM EST) Glucose 166 65 - 199 mg/dL [facility] Comment:Diabetes: >=200 mg/d L plus symptoms Blood Urea Nitrogen 24(H) 10 - 20 mg/dL [facility] Creatinine 0.84 0.80 - 1.50 mg/dL [facility] Sodium 132(L) 135 - 145 mmol/L [facility] Potassium 3.6 3.5 - 5.0 mmol/L [facility] Comment: Please note: ??Patients with WBC >100,000 may have falsely elevated Potassium levels. ??For accurate Potassium quantification in these patients send serum separator tube (gold top) for subsequent determinations. ??Contact the Clinical Chemistry Laboratory if there are any questions. Chloride 94(L) 98 - 107 mmol/L [facility] Carbon Dioxide 25 22 - 31 mmol/L [facility] Anion Gap 13 5 - 15 mmol/L [facility] Calcium 9.1 8.5 - 10.5 mg/dL [facility] Est Glomerular Filtration Rate 99 >=60 mL/min/1. 73 m?? [facility] Comment: This patient's estimated GFR [...] Eisenberg MD CHEMISTRY ORDERABLES Performing Organization Address City/[facility]/ZIP Co de Phone Number [facility] [place] [address] * POCT Glucose (12/15/2023 11:39 AM EST) Glucose, POC 174 65 - 199 mg/dL [facility] Comment: Supplemental ranges: <140 mg/dL before meals <180 mg/dL all other times of the day Blood 12/15/2023 11:3 9 AM EST 12/15/2023 11:39 AM EST Abram Wei MD POINT OF CARE TEST ORDERABLES Performing Organization Address [facility] Co de Phone Number [facility] [place] [address] * (ABNORMAL) Beta Hydroxybutyrate (12/15/2023 9:09 AM EST) Beta-hydroxybuturat e 0.42(H) 0.00 - 0.30 mmol/L [facility] Comment: This test has not been cleared by the [place] FDA. Performance characteristics of this test were determined by [facility] in accordance with CLIA requirements. This laboratory is qualified under CLIA to perform high-complexity testing. Blood 12/15/2023 9:09 AM EST 12/15/2023 9:15 AM EST Narrative Resulting Agency Comment Spec In Lab Frances Eisenberg MD CHEMISTRY ORDERABLES [facility] [place] [address] * (ABNORMAL) Basic Metabolic Panel (non-fasting) (12/15/2023 9:09 AM EST) Glucose 283(H) 65 - 199 mg/dL [facility] Comment:Diabetes: >=200 mg/d L plus symptoms Blood Urea Nitrogen 26(H) 10 - 20 mg/dL [facility] Creatinine 0.78(L) 0.80 - 1.50 mg/dL [facility] Sodium 132(L) 135 - 145 mmol/L [facility] Potassium 3.4(L) 3.5 - 5.0 mmol/L [facility] Comment: Please note: ??Patients with WBC >100,000 may have falsely elevated Potassium levels. ??For accurate Potassium quantification in these patients send serum separator tube (gold top) for subsequent determinations. ??Contact the Clinical Chemistry Laboratory if there are any questions. Chloride 94(L) 98 - 107 mmol/L [facility] Carbon Dioxide 24 22 - 31 mmol/L [facility] Anion Gap 14 5 - 15 mmol/L [facility] Calcium 9.1 8.5 - 10.5 mg/dL [facility] Est Glomerular Filtration Rate 101 >=60 mL/min/1. 73 m?? [facility] Comment: This patient's estimated GFR was [...] Eisenberg MD CHEMISTRY ORDERABLES Performing Organization Address [facility] Co de Phone Number [facility] [place] [address] * POCT Glucose (12/15/2023 7:15 AM EST) [facility] Glucose, POC 133 65 - 199 mg/dL [facility] Comment: Supplemental ranges: <140 mg/dL before meals <180 mg/dL all other times of the day Blood 12/15/2023 7:15 AM EST 12/15/2023 7:15 AM EST Abram Wei MD POINT OF CARE TEST ORDERABLES Performing Organization Address [facility] de Phone Number [facility] [place] [address] * Magnesium (12/15/2023 4:03 AM EST) [facility] Magnesium 0.89 0.69 - 1.07 mmol/L [facility] Blood Venous Draw / Unknown 12/15/2023 4:03 AM EST 12/15/2023 4:45 AM EST Narrative Resulting Agency Comment Spec In Lab Ryan Salas MD CHEMISTRY ORDERABLES Performing Organization Address [facility] Co de Phone Number [facility] [place] [address] * Scan, Peripheral Blood (12/15/2023 4:03 AM EST) [facility] Plat estimate Normal [facility] RBC Morphology Normal [facility] Blood 12/15/2023 4:03 AM EST 12/15/2023 4:42 AM EST Narrative Resulting Agency Comment Spec In Lab John Huitron MD HEMATOLOGY ORDERABLE S Performing Organization Address [facility] Co de Phone Number [facility] [place] [address] * (ABNORMAL) Differential, Automated (12/15/2023 4:03 AM EST) [facility] Neutrophil % 61.9 % [facility] Neutrophil Absolute 11.35(H) 1.70 - 6.10 x10(3)/mc L [facility] Lymph % 26.6 % [facility] Lymphocytes Abs 4.9(H) 0.9 - 3.2 x10(3)/mc L [facility] Monocyte % 10.4 % [facility] ITAL LABORATORY Monocyte Abs 1.9(H) 0.3 - 0.9 x10(3)/ L [facility] Eos % 0.3 % [facility] Eosinophils Abs 0.0 0.0 - 0.4 x10(3)/mc L [facility] Basophil % 0.2 % [facility] Baso Absolute 0.0 0.0 - 0.1 x10(3)/ L [facility] Immature Gran % 0.60 % [facility] Comment: Immature granulocytes(IG's)percentage and absolute count will include metamyelocytes, myelocytes, and promyelocytes. Blood smears from CBCs yielding IG's will be scanned manually for concordance. If this scan disagrees with the automated IG or if promyelocytes are noted, a manual differential will be performed. Immature Gran Absolute 0.11(H) 0.00 - 0.04 x10(3)/ L [facility] Blood 12/15/2023 4:03 AM EST 12/15/2023 4:42 AM EST Narrative Resulting Agency Comment Spec In Lab John Huitron MD HEMATOLOGY ORDERABLE S [facility] [place] [address] * (ABNORMAL) Hemogram (12/15/2023 4:03 AM EST) White Blood Cell 18.3(H) 4.0 - 9.5 x10(3)/mc L [facility] Red Blood Cell 5.27 4.58 - 5.54 x10(6)/mc L [facility] Hemoglobin 15.4 13.7 - 16.5 g/dL [facility] Hematocrit 45.6 40.5 - 48.5 % [facility] Mean Cell Volume 86.5 82.9 - 93.1 fL [facility] Mean Cell Hemoglobin 29.2 27.5 - 32.1 pg [facility] Mean Cell Hemoglobin Concentration 33.8 32.0 - 35.7 g/dL [facility] Platelet 253 145 - 357 x10(3)/mc L [facility] RDW Standard Deviation 39.6 36.0 - 45.0 fL [facility] RDW coefficient of variation 12.5 11.4 - 13.8 % [facility] Mean Platelet Volume 10.8 7.6 - 12.9 fL [facility] NRBC% auto 0.0 % [facility] ITAL LABORATORY NRBC Absolute 0.000 0.000 - 0.000 x10(3)/mc L [facility] Blood 12/15/2023 4:03 AM EST 12/15/2023 4:42 AM EST Narrative Resulting Agency Comment Spec In Lab John Huitron MD HEMATOLOGY ORDERABLE S Performing Organization Address City/State/[facility] Co de Phone Number [facility] [address] * (ABNORMAL) Basic Metabolic Panel (non-fasting) (12/15/2023 4:03 AM EST) Glucose 121 65 - 199 mg/dL [facility] Comment:Diabetes: >=200 mg/d L plus symptoms Blood Urea Nitrogen 26(H) 10 - 20 mg/dL [facility] Creatinine 0.88 0.80 - 1.50 mg/dL [facility] Sodium 132(L) 135 - 145 mmol/L [facility] Potassium 3.5 3.5 - 5.0 mmol/L [facility] Comment: Please note: ??Patients with WBC >100,000 may have falsely elevated Potassium levels. ??For accurate Potassium quantification in these patients send serum separator tube (gold top) for subsequent determinations. ??Contact the Clinical Chemistry Laboratory if there are any questions. Chloride 94(L) 98 - 107 mmol/L [facility] Carbon Dioxide 24 22 - 31 mmol/L [facility] Anion Gap 14 5 - 15 mmol/L [facility] Calcium 9.2 8.5 - 10.5 mg/dL [facility] Est Glomerular Filtration Rate 98 >=60 mL/min/1. 73 m?? [facility] Comment: This patient's estimated GFR was [...] Eisenberg MD CHEMISTRY ORDERABLES Performing Organization Address [facility] Co de Phone Number [facility] [place] [address] * (ABNORMAL) Beta Hydroxybutyrate (12/15/2023 4:03 AM EST) Beta-hydroxybuturat e 0.63(H) 0.00 - 0.30 mmol/L [facility] Comment: This test has not been cleared by the [place] FDA. Performance characteristics of this test were determined by [facility] in accordance with CLIA requirements. This laboratory is qualified under CLIA to perform high-complexity testing. Blood 12/15/2023 4:03 AM EST 12/15/2023 4:44 AM EST Narrative Resulting Agency Comment Spec In Lab Frances Eisenberg MD CHEMISTRY ORDERABLES Performing Organization Address [facility] Co de Phone Number [facility] [address] * POCT Glucose (12/15/2023 3:30 AM EST) Glucose, POC 120 65 - 199 mg/dL [facility] Comment: Supplemental ranges: <140 mg/dL before meals <180 mg/dL all other times of the day Blood 12/15/2023 3:30 AM EST 12/15/2023 3:30 AM EST Narrative Authorizing Provider Result Erwin Wei MD POINT OF CARE TEST ORDERABLES Performing Organization Address [facility] Co de Phone Number [facility] [place] [address] * POCT Glucose (12/15/2023 12:09 AM EST) Glucose, POC 114 65 - 199 mg/dL [facility] Comment: Supplemental ranges: <140 mg/dL before meals <180 mg/dL all other times of the day Blood 12/15/2023 12:0 9 AM EST 12/15/2023 12:09 AM EST Abram Wei MD POINT OF CARE TEST ORDERABLES Performing Organization Address [facility] de Phone Number [facility] [place] [address] * POCT Glucose (12/14/2023 11:21 PM EST) Glucose, POC 109 65 - 199 mg/dL [facility] Comment: Supplemental ranges: <140 mg/dL before meals <180 mg/dL all other times of the day Blood 12/14/2023 11:2 1 PM EST 12/14/2023 11:21 PM EST Narrative Authorizing Provider Result Erwin Wei MD POINT OF CARE TEST ORDERABLES Performing Organization Address [facility] de Phone Number [facility] [place] [address] * POCT Glucose (12/14/2023 10:20 PM EST) Glucose, POC 138 65 - 199 mg/dL [facility] Comment: Supplemental ranges: <140 mg/dL before meals <180 mg/dL all other times of the day Blood 12/14/2023 10:2 0 PM EST 12/14/2023 10:20 PM EST Narrative Authorizing Provider Result Erwin Wei MD POINT OF CARE TEST ORDERABLES Performing Organization Address City/[facility] Co de Phone Number [facility] [place] [address] * (ABNORMAL) Beta Hydroxybutyrate (12/14/2023 9:55 PM EST) Beta-hydroxybuturat e 0.33(H) 0.00 - 0.30 mmol/L [facility] Comment: This test has not been cleared by the [place] FDA. Performance characteristics of this test were determined by [facility] in accordance with CLIA requirements. This laboratory is qualified under CLIA to perform high-complexity testing. Blood 12/14/2023 9:55 PM EST 12/14/2023 10:04 PM EST Narrative Resulting Agency Comment Spec In Lab Frances Eisenberg MD CHEMISTRY ORDERABLES [facility] [address] * (ABNORMAL) Basic Metabolic Panel (non-fasting) (12/14/2023 9:55 PM EST) Glucose 148 65 - 199 mg/dL [facility] Comment:Diabetes: >=200 mg/d L plus symptoms Blood Urea Nitrogen 28(H) 10 - 20 mg/dL [facility] Creatinine 0.91 0.80 - 1.50 mg/dL [facility] Sodium 132(L) 135 - 145 mmol/L [facility] Potassium 3.6 3.5 - 5.0 mmol/L [facility] Comment: Please note: ??Patients with WBC >100,000 may have falsely elevated Potassium levels. ??For accurate Potassium quantification in these patients send serum separator tube (gold top) for subsequent determinations. ??Contact the Clinical Chemistry Laboratory if there are any questions. Chloride 96(L) 98 - 107 mmol/L [facility] Carbon Dioxide 23 22 - 31 mmol/L [facility] Anion Gap 13 5 - 15 mmol/L [facility] Calcium 8.9 8.5 - 10.5 mg/dL [facility] Est Glomerular Filtration Rate 96 >=60 mL/min/1. 73 m?? [facility] Comment: This patient's estimated GFR [...] Eisenberg MD CHEMISTRY ORDERABLES Performing Organization Address City/[facility] Co de Phone Number [facility] [place] [address] * POCT Glucose (12/14/2023 9:15 PM EST) Glucose, POC 167 65 - 199 mg/dL [facility] Comment: Supplemental ranges: <140 mg/dL before meals <180 mg/dL all other times of the day Blood 12/14/2023 9:15 PM EST 12/14/2023 9:15 PM EST Abram Wei MD POINT OF CARE TEST ORDERABLES Performing Organization Address [facility] Co de Phone Number [facility] [place] [address] * (ABNORMAL) POCT Glucose (12/14/2023 8:23 PM EST) Glucose, POC 222(H) 65 - 199 mg/dL [facility] Comment: Supplemental ranges: <140 mg/dL before meals <180 mg/dL all other times of the day Blood 12/14/2023 8:23 PM EST 12/14/2023 8:23 PM EST Abram Wei MD POINT OF CARE TEST ORDERABLES Performing Organization Address City/[facility] Co de Phone Number [facility] [place] [address] * (ABNORMAL) POCT Glucose (12/14/2023 7:15 PM EST) Glucose, POC 272(H) 65 - 199 mg/dL [facility] Comment: Supplemental ranges: <140 mg/dL before meals <180 mg/dL all other times of the day Blood 12/14/2023 7:15 PM EST 12/14/2023 7:15 PM EST Abram Wei MD POINT OF CARE TEST ORDERABLES Performing Organization Address [facility] Co de Phone Number [facility] [place] [address] * (ABNORMAL) Beta Hydroxybutyrate (12/14/2023 6:02 PM EST) Beta-hydroxybuturat e 0.75(H) 0.00 - 0.30 mmol/L [facility] Comment: This test has not been cleared by the [place] FDA. Performance characteristics of this test were determined by [facility] in accordance with CLIA requirements. This laboratory is qualified under CLIA to perform high-complexity testing. Blood 12/14/2023 6:02 PM EST 12/14/2023 6:10 PM EST Narrative Resulting Agency Comment Spec In Lab Frances Eisenberg MD CHEMISTRY ORDERABLES Performing Organization Address [facility] Co de Phone Number [facility] [place] [address] * (ABNORMAL) Basic Metabolic Panel (non-fasting) (12/14/2023 6:02 PM EST) Glucose 246(H) 65 - 199 mg/dL [facility] Comment:Diabetes: >=200 mg/d L plus symptoms Blood Urea Nitrogen 26(H) 10 - 20 mg/dL [facility] Creatinine 0.83 0.80 - 1.50 mg/dL [facility] Sodium 130(L) 135 - 145 mmol/L [facility] Potassium 3.8 3.5 - 5.0 mmol/L [facility] Comment: Please note: ??Patients with WBC >100,000 may have falsely elevated Potassium levels. ??For accurate Potassium quantification in these patients send serum separator tube (gold top) for subsequent determinations. ??Contact the Clinical Chemistry Laboratory if there are any questions. Chloride 95(L) 98 - 107 mmol/L [facility] Carbon Dioxide 21(L) 22 - 31 mmol/L [facility] Anion Gap 14 5 - 15 mmol/L [facility] Calcium 8.9 8.5 - 10.5 mg/dL [facility] Est Glomerular Filtration Rate 100 >=60 mL/min/1. 73 m?? [facility] Comment: This patient's estimated GFR was [...] Eisenberg MD CHEMISTRY ORDERABLES Performing Organization Address [facility] Co de Phone Number [facility] [place] [address] * POCT Glucose (12/14/2023 5:26 PM EST) Glucose, POC 197 65 - 199 mg/dL [facility] Comment: Supplemental ranges: <140 mg/dL before meals <180 mg/dL all other times of the day Blood 12/14/2023 5:26 PM EST 12/14/2023 5:26 PM EST Abram Wei MD POINT OF CARE TEST ORDERABLES Performing Organization Address [facility] Co de Phone Number [facility] [place] [address] * POCT Glucose (12/14/2023 3:47 PM EST) Glucose, POC 142 65 - 199 mg/dL [facility] Comment: Supplemental ranges: <140 mg/dL before meals <180 mg/dL all other times of the day Blood 12/14/2023 3:47 PM EST 12/14/2023 3:47 PM EST Abram Wei MD POINT OF CARE TEST ORDERABLES Performing Organization Address [facility] Co de Phone Number [facility] [place] [address] * POCT Glucose (12/14/2023 2:35 PM EST) Glucose, POC 140 65 - 199 mg/dL [facility] Comment: Supplemental ranges: <140 mg/dL before meals <180 mg/dL all other times of the day Blood 12/14/2023 2:35 PM EST 12/14/2023 2:35 PM EST Abram Wei MD POINT OF CARE TEST ORDERABLES Performing Organization Address [facility] de Phone Number [facility] [place] [address] * C-peptide (12/14/2023 2:11 PM EST) [facility] C-Peptide 1.4 1.1 - 4.4 ng/mL [facility] Comment:Reference intervals derived from fasting individuals Blood 12/14/2023 2:11 PM EST 12/14/2023 2:52 PM EST Narrative Resulting Agency Comment Spec In Lab Janina Moon APRN CHEMISTRY ORDERABLE S Performing Organization Address [facility] de Phone Number [facility] [place] [address] * (ABNORMAL) Glucose, fasting (12/14/2023 2:11 PM EST) Glucose Fasting 145(H) 65 - 99 mg/dL [facility] Comment: ?Fasting* Glucose Interpretive Criteria Normal [...] of Diabetes Mellitus, Position Statement from the [place] [employer]. ??Diabetes Care, Volume 33, Supplement 1, Nov 2009 Blood 12/14/2023 2:11 PM EST 12/14/2023 2:52 PM EST Narrative Resulting Agency Comment Spec In Lab Janina Moon APRN CHEMISTRY ORDERABLE S Performing Organization Address [facility] de Phone Number [facility] [place] [address] * (ABNORMAL) Beta Hydroxybutyrate (12/14/2023 2:11 PM EST) Beta-hydroxybuturat e 0.61(H) 0.00 - 0.30 mmol/L [facility] Comment: This test has not been cleared by the US FDA. Performance characteristics of this test were determined by [facility] in accordance with CLIA requirements. This laboratory is qualified under CLIA to perform high-complexity testing. Blood 12/14/2023 2:11 PM EST 12/14/2023 2:52 PM EST Narrative Resulting Agency Comment Spec In Lab Frances Eisenberg MD CHEMISTRY ORDERABLES Performing Organization Address [facility] Co de Phone Number [facility] [place] [address] * (ABNORMAL) Basic Metabolic Panel (non-fasting) (12/14/2023 2:11 PM EST) Glucose 147 65 - 199 mg/dL [facility] Comment:Diabetes: >=200 mg/d L plus symptoms Blood Urea Nitrogen 24(H) 10 - 20 mg/dL [facility] Creatinine 0.79(L) 0.80 - 1.50 mg/dL [facility] Sodium 134(L) 135 - 145 mmol/L [facility] Potassium 3.8 3.5 - 5.0 mmol/L [facility] Comment: Please note: ??Patients with WBC >100,000 may have falsely elevated Potassium levels. ??For accurate Potassium quantification in these patients send serum separator tube (gold top) for subsequent determinations. ??Contact the Clinical Chemistry Laboratory if there are any questions. Chloride 97(L) 98 - 107 mmol/L [facility] Carbon Dioxide 22 22 - 31 mmol/L [facility] Anion Gap 15 5 - 15 mmol/L [facility] Calcium 9.1 8.5 - 10.5 mg/dL [facility] Est Glomerular Filtration Rate 101 >=60 mL/min/1. 73 m?? [facility] Comment: This patient's estimated GFR was [...] In Lab Frances Eisenberg MD CHEMISTRY ORDERABLES [facility] [place] [address] * POCT Glucose (12/14/2023 1:19 PM EST) Glucose, POC 153 65 - 199 mg/dL [facility] Comment: Supplemental ranges: <140 mg/dL before meals <180 mg/dL all other times of the day Blood 12/14/2023 1:19 PM EST 12/14/2023 1:19 PM EST Jon Root MD POINT OF CARE T EST ORDERABLES [facility] [place] [address] * POCT Glucose (12/14/2023 12:13 PM EST) Glucose, POC 139 65 - 199 mg/dL [facility] Comment: Supplemental ranges: <140 mg/dL before meals <180 mg/dL all other times of the day Blood 12/14/2023 12:1 3 PM EST 12/14/2023 12:13 PM EST Jon Root MD POINT OF CARE T EST ORDERABLES Performing Organization Address City/[facility] Co de Phone Number [facility] [place] [address] * POCT Glucose (12/14/2023 10:55 AM EST) Glucose, POC 185 65 - 199 mg/dL [facility] Comment: Supplemental ranges: <140 mg/dL before meals <180 mg/dL all other times of the day Blood 12/14/2023 10:5 5 AM EST 12/14/2023 10:55 AM EST Jon Root MD POINT OF CARE T EST ORDERABLES Performing Organization Address City/[facility]/ZIP Co de Phone Number [facility] [place] [address] * (ABNORMAL) Beta Hydroxybutyrate (12/14/2023 9:59 AM EST) Beta-hydroxybuturat e 0.52(H) 0.00 - 0.30 mmol/L [facility] Comment: This test has not been cleared by the US FDA. Performance characteristics of this test were determined by [facility] in accordance with CLIA requirements. This laboratory is qualified under CLIA to perform high-complexity testing. Blood 12/14/2023 9:59 AM EST 12/14/2023 10:09 AM EST Narrative Resulting Agency Comment Spec In Lab Frances Eisenberg MD CHEMISTRY ORDERABLES [facility] [place] [address] * (ABNORMAL) Basic Metabolic Panel (non-fasting) (12/14/2023 9:59 AM EST) Glucose 212(H) 65 - 199 mg/dL [facility] Comment:Diabetes: >=200 mg/d L plus symptoms Blood Urea Nitrogen 24(H) 10 - 20 mg/dL [facility] Creatinine 0.89 0.80 - 1.50 mg/dL [facility] Sodium 132(L) 135 - 145 mmol/L [facility] Potassium 3.8 3.5 - 5.0 mmol/L [facility] Comment: Please note: ??Patients with WBC >100,000 may have falsely elevated Potassium levels. ??For accurate Potassium quantification in these patients send serum separator tube (gold top) for subsequent determinations. ??Contact the Clinical Chemistry Laboratory if there are any questions. Chloride 96(L) 98 - 107 mmol/L [facility] Carbon Dioxide 24 22 - 31 mmol/L [facility] Anion Gap 12 5 - 15 mmol/L [facility] Calcium 9.1 8.5 - 10.5 mg/dL [facility] Est Glomerular Filtration Rate 97 >=60 mL/min/1. 73 m?? [facility] Comment: This patient's estimated GFR was [...] Eisenberg MD CHEMISTRY ORDERABLES Performing Organization Address City/[facility]/ZIP Co de Phone Number [facility] [place] [address] * (ABNORMAL) POCT Glucose (12/14/2023 9:42 AM EST) Glucose, POC 247(H) 65 - 199 mg/dL [facility] Comment: Supplemental ranges: <140 mg/dL before meals <180 mg/dL all other times of the day Blood 12/14/2023 9:42 AM EST 12/14/2023 9:42 AM EST Jon Root MD POINT OF CARE T EST ORDERABLES Performing Organization Address [facility] Co de Phone Number [facility] [place] [address] * (ABNORMAL) POCT Glucose (12/14/2023 8:43 AM EST) Glucose, POC 209(H) 65 - 199 mg/dL [facility] Comment: Supplemental ranges: <140 mg/dL before meals <180 mg/dL all other times of the day Blood 12/14/2023 8:43 AM EST 12/14/2023 8:43 AM EST Jon Root MD POINT OF CARE T EST ORDERABLES Performing Organization Address [facility] Co de Phone Number [facility] [place] [address] * POCT Glucose (12/14/2023 7:43 AM EST) Glucose, POC 183 65 - 199 mg/dL [facility] Comment: Supplemental ranges: <140 mg/dL before meals <180 mg/dL all other times of the day Blood 12/14/2023 7:43 AM EST 12/14/2023 7:43 AM EST Jon Root MD POINT OF CARE T EST ORDERABLES Performing Organization Address City/[facility] Co de Phone Number [facility] [place] [address] * POCT Glucose (12/14/2023 6:27 AM EST) Glucose, POC 167 65 - 199 mg/dL [facility] Comment: Supplemental ranges: <140 mg/dL before meals <180 mg/dL all other times of the day Blood 12/14/2023 6:27 AM EST 12/14/2023 6:27 AM EST Jon Root MD POINT OF CARE T EST ORDERABLES [facility] [place] [address] * POCT Glucose (12/14/2023 5:30 AM EST) Glucose, POC 190 65 - 199 mg/dL [facility] Comment: Supplemental ranges: <140 mg/dL before meals <180 mg/dL all other times of the day Blood 12/14/2023 5:30 AM EST 12/14/2023 5:30 AM EST Jon Root MD POINT OF CARE T EST ORDERABLES [facility] [place] [address] * POCT Glucose (12/14/2023 4:38 AM EST) Glucose, POC 179 65 - 199 mg/dL [facility] Comment: Supplemental ranges: <140 mg/dL before meals <180 mg/dL all other times of the day Blood 12/14/2023 4:38 AM EST 12/14/2023 4:38 AM EST Jon Root MD POINT OF CARE T EST ORDERABLES [facility] [place] [address] * (ABNORMAL) BMP w/fasting Glucose (12/14/2023 3:36 AM EST) Glucose Fasting 172(H) 65 - 99 mg/dL [facility] Comment: ?Fasting* Glucose Interpretive Criteria Normal [...] of Diabetes Mellitus, Position Statement from the [place] [employer]. ??Diabetes Care, Volume 33, Supplement 1, Nov 2009 Blood Urea Nitrogen 27(H) 10 - 20 mg/dL [facility] Creatinine 0.81 0.80 - 1.50 mg/dL [facility] Sodium 133(L) 135 - 145 mmol/L [facility] Potassium 3.7 3.5 - 5.0 mmol/L [facility] Comment: Please note: ??Patients with WBC >100,000 may have falsely elevated Potassium levels. ??For accurate Potassium quantification in these patients send serum separator tube (gold top) for subsequent determinations. ??Contact the Clinical Chemistry Laboratory if there are any questions. Chloride 100 98 - 107 mmol/L [facility] Carbon Dioxide 19(L) 22 - 31 mmol/L [facility] Anion Gap 14 5 - 15 mmol/L [facility] Calcium 8.9 8.5 - 10.5 mg/dL [facility] Est Glomerular Filtration Rate 100 >=60 mL/min/1. 73 m?? [facility] Comment: This patient's estimated GFR was [...] Huitron MD CHEMISTRY ORDERABLES Performing Organization Address City/[facility] Co de Phone Number [facility] [place] [address] * (ABNORMAL) Beta Hydroxybutyrate (12/14/2023 3:36 AM EST) Beta-hydroxybuturat e 0.56(H) 0.00 - 0.30 mmol/L [facility] Comment: This test has not been cleared by the US FDA. Performance characteristics of this test were determined by [facility] in accordance with CLIA requirements. This laboratory is qualified under CLIA to perform high-complexity testing. Blood 12/14/2023 3:36 AM EST 12/14/2023 4:13 AM EST Narrative Resulting Agency Comment Spec In Lab Frances Eisenberg MD CHEMISTRY ORDERABLES Performing Organization Address [facility] Co de Phone Number [facility] [place] [address] * POCT Glucose (12/14/2023 3:26 AM EST) Glucose, POC 174 65 - 199 mg/dL [facility] Comment: Supplemental ranges: <140 mg/dL before meals <180 mg/dL all other times of the day Blood 12/14/2023 3:26 AM EST 12/14/2023 3:26 AM EST Jon Root MD POINT OF CARE T EST ORDERABLES Performing Organization Address [facility] Co de Phone Number [facility] [place] [address] * POCT Glucose (12/14/2023 2:20 AM EST) Glucose, POC 143 65 - 199 mg/dL [facility] Comment: Supplemental ranges: <140 mg/dL before meals <180 mg/dL all other times of the day Blood 12/14/2023 2:20 AM EST 12/14/2023 2:20 AM EST Jon Root MD POINT OF CARE T EST ORDERABLES Performing Organization Address City/[facility] Co de Phone Number [facility] [place] [address] * POCT Glucose (12/14/2023 1:42 AM EST) Glucose, POC 134 65 - 199 mg/dL [facility] Comment: Supplemental ranges: <140 mg/dL before meals <180 mg/dL all other times of the day Blood 12/14/2023 1:42 AM EST 12/14/2023 1:42 AM EST Jon Root MD POINT OF CARE T EST ORDERABLES Performing Organization Address [facility] Co de Phone Number [facility] [place] [address] * POCT Glucose (12/14/2023 12:31 AM EST) Glucose, POC 157 65 - 199 mg/dL [facility] Comment: Supplemental ranges: <140 mg/dL before meals <180 mg/dL all other times of the day Blood 12/14/2023 12:3 1 AM EST 12/14/2023 12:31 AM EST Jon Root MD POINT OF CARE T EST ORDERABLES Performing Organization Address City/[facility] Co de Phone Number [facility] [place] [address] * (ABNORMAL) Basic Metabolic Panel (non-fasting) (12/14/2023 12:09 AM EST) Glucose 152 65 - 199 mg/dL [facility] Comment:Diabetes: >=200 mg/d L plus symptoms Blood Urea Nitrogen 29(H) 10 - 20 mg/dL [facility] Creatinine 0.94 0.80 - 1.50 mg/dL [facility] Sodium 134(L) 135 - 145 mmol/L [facility] Potassium 3.7 3.5 - 5.0 mmol/L [facility] Comment: Please note: ??Patients with WBC >100,000 may have falsely elevated Potassium levels. ??For accurate Potassium quantification in these patients send serum separator tube (gold top) for subsequent determinations. ??Contact the Clinical Chemistry Laboratory if there are any questions. Chloride 101 98 - 107 mmol/L [facility] Carbon Dioxide 18(L) 22 - 31 mmol/L [facility] Anion Gap 15 5 - 15 mmol/L [facility] Calcium 9.0 8.5 - 10.5 mg/dL [facility] Est Glomerular Filtration Rate 92 >=60 mL/min/1. 73 m?? [facility] Comment: This patient's estimated GFR was [...] In Lab John Huitron MD CHEMISTRY ORDERABLES [facility] [place] [address] * Beta Hydroxybutyrate (12/14/2023 12:09 AM EST) Beta-hydroxybuturat e 0.27 0.00 - 0.30 mmol/L [facility] Comment: This test has not been cleared by the US FDA. Performance characteristics of this test were determined by [facility] in accordance with CLIA requirements. This laboratory is qualified under CLIA to perform high-complexity testing. Blood 12/14/2023 12:0 9 AM EST 12/14/2023 12:42 AM EST Narrative Resulting Agency Comment Spec In Lab Frances Eisenberg MD CHEMISTRY ORDERABLES Performing Organization Address [facility] Co de Phone Number [facility] [place] [address] * POCT Glucose (12/13/2023 11:35 PM EST) Glucose, POC 157 65 - 199 mg/dL [facility] Comment: Supplemental ranges: <140 mg/dL before meals <180 mg/dL all other times of the day Blood 12/13/2023 11:3 5 PM EST 12/13/2023 11:35 PM EST Jon Root MD POINT OF CARE T EST ORDERABLES Performing Organization Address [facility] Co de Phone Number [facility] [place] [address] * POCT Glucose (12/13/2023 10:35 PM EST) Glucose, POC 177 65 - 199 mg/dL [facility] Comment: Supplemental ranges: <140 mg/dL before meals <180 mg/dL all other times of the day Blood 12/13/2023 10:3 5 PM EST 12/13/2023 10:35 PM EST Jon Root MD POINT OF CARE T EST ORDERABLES Performing Organization Address City/[facility] Co de Phone Number [facility] [place] [address] * POCT Glucose (12/13/2023 9:31 PM EST) Glucose, POC 195 65 - 199 mg/dL [facility] Comment: Supplemental ranges: <140 mg/dL before meals <180 mg/dL all other times of the day Blood 12/13/2023 9:31 PM EST 12/13/2023 9:31 PM EST Jon Root MD POINT OF CARE T EST ORDERABLES [facility] [place] [address] * POCT Glucose (12/13/2023 8:38 PM EST) Glucose, POC 195 65 - 199 mg/dL [facility] Comment: Supplemental ranges: <140 mg/dL before meals <180 mg/dL all other times of the day Blood 12/13/2023 8:38 PM EST 12/13/2023 8:38 PM EST Jon Root MD POINT OF CARE T EST ORDERABLES Performing Organization Address [facility] Co de Phone Number [facility] [place] [address] * (ABNORMAL) Basic Metabolic Panel (non-fasting) (12/13/2023 7:56 PM EST) Glucose 206(H) 65 - 199 mg/dL [facility] Comment:Diabetes: >=200 mg/d L plus symptoms Blood Urea Nitrogen 31(H) 10 - 20 mg/dL [facility] Creatinine 1.03 0.80 - 1.50 mg/dL [facility] Sodium 133(L) 135 - 145 mmol/L [facility] Potassium 3.5 3.5 - 5.0 mmol/L [facility] Comment: Please note: ??Patients with WBC >100,000 may have falsely elevated Potassium levels. ??For accurate Potassium quantification in these patients send serum separator tube (gold top) for subsequent determinations. ??Contact the Clinical Chemistry Laboratory if there are any questions. Chloride 99 98 - 107 mmol/L [facility] Carbon Dioxide 19(L) 22 - 31 mmol/L [facility] Anion Gap 15 5 - 15 mmol/L [facility] Calcium 9.0 8.5 - 10.5 mg/dL [facility] Est Glomerular Filtration Rate 83 >=60 mL/min/1. 73 m?? [facility] Comment: This patient's estimated GFR [...] Eisenberg MD CHEMISTRY ORDERABLES Performing Organization Address City/[facility] Co de Phone Number [facility] [place] [address] * Beta Hydroxybutyrate (12/13/2023 7:56 PM EST) Beta-hydroxybuturat e 0.17 0.00 - 0.30 mmol/L [facility] Comment: This test has not been cleared by the [place] FDA. Performance characteristics of this test were determined by [facility] in accordance with CLIA requirements. This laboratory is qualified under CLIA to perform high-complexity testing. Blood 12/13/2023 7:56 PM EST 12/13/2023 8:15 PM EST Narrative Resulting Agency Comment Spec In Lab Frances Eisenberg MD CHEMISTRY ORDERABLES Performing Organization Address City/[facility]/ZIP Co de Phone Number [facility] [place] [address] * Phosphorus (12/13/2023 7:56 PM EST) Phosphorus 4.1 2.5 - 4.5 mg/dL [facility] Blood 12/13/2023 7:56 PM EST 12/13/2023 8:15 PM EST Narrative Resulting Agency Comment Spec In Lab Frances Eisenberg MD CHEMISTRY ORDERABLES Performing Organization Address City/[facility]/ZIP Co de Phone Number [facility] [place] [address] * Magnesium (12/13/2023 7:56 PM EST) Magnesium 0.90 0.69 - 1.07 mmol/L [facility] Blood 12/13/2023 7:56 PM EST 12/13/2023 8:15 PM EST Narrative Resulting Agency Comment Spec In Lab Frances Eisenberg MD CHEMISTRY ORDERABLES [facility] [place] [address] * (ABNORMAL) POCT Glucose (12/13/2023 7:28 PM EST) Glucose, POC 202(H) 65 - 199 mg/dL [facility] Comment: Supplemental ranges: <140 mg/dL before meals <180 mg/dL all other times of the day Blood 12/13/2023 7:28 PM EST 12/13/2023 7:28 PM EST Jon Root MD POINT OF CARE T EST ORDERABLES Performing Organization Address City/[facility]/ZIP Co de Phone Number [facility] [place] [address] * POCT Glucose (12/13/2023 6:34 PM EST) Glucose, POC 178 65 - 199 mg/dL [facility] Comment: Supplemental ranges: <140 mg/dL before meals <180 mg/dL all other times of the day Blood 12/13/2023 6:34 PM EST 12/13/2023 6:34 PM EST Jon Root MD POINT OF CARE T EST ORDERABLES Performing Organization Address City/[facility] Co de Phone Number [facility] [place] [address] * POCT Glucose (12/13/2023 6:03 PM EST) Glucose, POC 167 65 - 199 mg/dL [facility] Comment: Supplemental ranges: <140 mg/dL before meals <180 mg/dL all other times of the day Blood 12/13/2023 6:03 PM EST 12/13/2023 6:03 PM EST Jon Root MD POINT OF CARE T EST ORDERABLES Performing Organization Address City/[facility]/ZIP Co de Phone Number [facility] [place] [address] * POCT Glucose (12/13/2023 5:32 PM EST) Glucose, POC 169 65 - 199 mg/dL [facility] Comment: Supplemental ranges: <140 mg/dL before meals <180 mg/dL all other times of the day Blood 12/13/2023 5:32 PM EST 12/13/2023 5:32 PM EST Jon Root MD POINT OF CARE T EST ORDERABLES Performing Organization Address City/[facility] Co de Phone Number [facility] [place] [address] * POCT Glucose (12/13/2023 4:58 PM EST) Glucose, POC 134 65 - 199 mg/dL [facility] Comment: Supplemental ranges: <140 mg/dL before meals <180 mg/dL all other times of the day Blood 12/13/2023 4:58 PM EST 12/13/2023 4:58 PM EST Jon Root MD POINT OF CARE T EST ORDERABLES Performing Organization Address City/[facility] Co de Phone Number [facility] [place] [address] * Beta Hydroxybutyrate (12/13/2023 4:06 PM EST) Beta-hydroxybuturat e <0.10 0.00 - 0.30 mmol/L [facility] Comment: This test has not been cleared by the [place] FDA. Performance characteristics of this test were determined by [facility] in accordance with CLIA requirements. This laboratory is qualified under CLIA to perform high-complexity testing. Blood Venous Draw / Unknown 12/13/2023 4:06 PM EST 12/13/2023 4:42 PM EST Narrative Resulting Agency Comment Spec In Lab Dorys Cardoza MD CHEMISTRY ORDERABLES [facility] [place] [address] * (ABNORMAL) Basic Metabolic Panel (non-fasting) (12/13/2023 4:06 PM EST) Glucose 176 65 - 199 mg/dL [facility] Comment:Diabetes: >=200 mg/d L plus symptoms Blood Urea Nitrogen 33(H) 10 - 20 mg/dL [facility] Creatinine 1.26 0.80 - 1.50 mg/dL [facility] Sodium 134(L) 135 - 145 mmol/L [facility] Potassium 3.8 3.5 - 5.0 mmol/L [facility] Comment: Please note: ??Patients with WBC >100,000 may have falsely elevated Potassium levels. ??For accurate Potassium quantification in these patients send serum separator tube (gold top) for subsequent determinations. ??Contact the Clinical Chemistry Laboratory if there are any questions. Chloride 100 98 - 107 mmol/L [facility] Carbon Dioxide 17(L) 22 - 31 mmol/L [facility] Anion Gap 17(H) 5 - 15 mmol/L [facility] Calcium 9.3 8.5 - 10.5 mg/dL [facility] Est Glomerular Filtration Rate 65 >=60 mL/min/1. 73 m?? [facility] Comment: This patient's estimated GFR was [...] Eisenberg MD CHEMISTRY ORDERABLES Performing Organization Address [facility] Co de Phone Number [facility] [place] [address] * POCT Glucose (12/13/2023 3:55 PM EST) Glucose, POC 168 65 - 199 mg/dL [facility] Comment: Supplemental ranges: <140 mg/dL before meals <180 mg/dL all other times of the day Blood 12/13/2023 3:55 PM EST 12/13/2023 3:55 PM EST Jon Root MD POINT OF CARE T EST ORDERABLES Performing Organization Address [facility] Co de Phone Number [facility] [place] [address] * (ABNORMAL) POCT Glucose (12/13/2023 2:55 PM EST) Glucose, POC 220(H) 65 - 199 mg/dL [facility] Comment: Supplemental ranges: <140 mg/dL before meals <180 mg/dL all other times of the day Blood 12/13/2023 2:55 PM EST 12/13/2023 2:55 PM EST Jon Root MD POINT OF CARE T EST ORDERABLES Performing Organization Address [facility] Co de Phone Number [facility] [place] [address] * (ABNORMAL) POCT Glucose (12/13/2023 1:56 PM EST) Glucose, POC 245(H) 65 - 199 mg/dL [facility] Comment: Supplemental ranges: <140 mg/dL before meals <180 mg/dL all other times of the day Blood 12/13/2023 1:56 PM EST 12/13/2023 1:56 PM EST Jon Root MD POINT OF CARE T EST ORDERABLES Performing Organization Address City/[facility]/ZIP Co de Phone Number [facility] [place] [address] * (ABNORMAL) POCT Glucose (12/13/2023 1:07 PM EST) Glucose, POC 289(H) 65 - 199 mg/dL [facility] Comment: Supplemental ranges: <140 mg/dL before meals <180 mg/dL all other times of the day Blood 12/13/2023 1:07 PM EST 12/13/2023 1:07 PM EST Jon Root MD POINT OF CARE T EST ORDERABLES Performing Organization Address City/[facility] Co de Phone Number [facility] [place] [address] * (ABNORMAL) POCT Glucose (12/13/2023 12:30 PM EST) Glucose, POC 302(H) 65 - 199 mg/dL [facility] Comment: Supplemental ranges: <140 mg/dL before meals <180 mg/dL all other times of the day Blood 12/13/2023 12:3 0 PM EST 12/13/2023 12:30 PM EST Jon Root MD POINT OF CARE T EST ORDERABLES Performing Organization Address City/[facility] Co de Phone Number [facility] [place] [address] * (ABNORMAL) Beta Hydroxybutyrate (12/13/2023 11:58 AM EST) Beta-hydroxybuturat e 0.71(H) 0.00 - 0.30 mmol/L [facility] Comment: This test has not been cleared by the [place] FDA. Performance characteristics of this test were determined by [facility] in accordance with CLIA requirements. This laboratory is qualified under CLIA to perform high-complexity testing. Blood 12/13/2023 11:5 8 AM EST 12/13/2023 12:10 PM EST Narrative Resulting Agency Comment Spec In Lab Frances Eisenberg MD CHEMISTRY ORDERABLES [facility] [place] [address] * (ABNORMAL) Basic Metabolic Panel (non-fasting) (12/13/2023 11:58 AM EST) Glucose 324(H) 65 - 199 mg/dL [facility] Comment:Diabetes: >=200 mg/d L plus symptoms Blood Urea Nitrogen 34(H) 10 - 20 mg/dL [facility] Creatinine 1.40 0.80 - 1.50 mg/dL [facility] Sodium 133(L) 135 - 145 mmol/L [facility] Potassium 3.9 3.5 - 5.0 mmol/L [facility] Comment: Please note: ??Patients with WBC >100,000 may have falsely elevated Potassium levels. ??For accurate Potassium quantification in these patients send serum separator tube (gold top) for subsequent determinations. ??Contact the Clinical Chemistry Laboratory if there are any questions. Chloride 100 98 - 107 mmol/L [facility] Carbon Dioxide 18(L) 22 - 31 mmol/L [facility] Anion Gap 15 5 - 15 mmol/L [facility] Calcium 8.9 8.5 - 10.5 mg/dL [facility] Est Glomerular Filtration Rate 57(L) >=60 mL/min/1. 73 m?? [facility] Comment: This patient's estimated GFR was [...] In Lab Frances Eisenberg MD CHEMISTRY ORDERABLES [facility] [place] [address] * (ABNORMAL) Diabetes Type 1 Evaluation (12/13/2023 11:58 AM EST) Pathologist [facility] Diabetes Interpretation (MARCH) SEE COMMENTS [facility] Comment: This profile is consistent with [...] Ismael AJ, Emerson S, Felipe GF, Ivory EA. Prediction of IDDM in the general population: strategies based on combinations of autoantibody markers. Diabetes. 1997;46:1701-10. * Test Performed by: [address] [address] [employer] Mock Up Mechanic: Jesus Zelaya M.D. Ph.D.; CLIA# [id number] Gad65 Ab (MARCH) 0.87(H) <=0.02 nmol/L [facility] Comment: ADDITIONAL INFORMATION This test was developed and its performance characteristics determined by [facility] in a manner consistent with CLIA requirements. This test has not been cleared or approved by the U.S. Food and Drug Administration. Test Performed by: [facility] [place] [address] [employer] Mechanic: Jesus Zelaya M.D. Ph.D.; CLIA# [id number] Insulin Antibody (MARCH) 0.00 0.00 - 0.02 nmol/L [facility] Comment: ADDITIONAL INFORMATION This test was developed and its performance characteristics determined by [facility] in a manner consistent with CLIA requirements. This test has not been cleared or approved by the U.S. Food and Drug Administration. Test Performed by: [facility] [address] [employer] Mechanic: Jesus Zelaya M.D. Ph.D.; CLIA# [id number] Ia-2 Ab (MARCH) 1.33(H) <=0.02 nmol/L [facility] Comment: ADDITIONAL INFORMATION This test was developed and its performance characteristics determined by [facility] in a manner consistent with CLIA requirements. This test has not been cleared or approved by the U.S. Food and Drug Administration. Test Performed by: [facility] [address] [employer] Mock [employer] Mechanic: Jesus Zelaya M.D. Ph.D.; CLIA# [id number] Znt8 Ab (MARCH) 255(H) <15.0 unit/mL [facility] Comment: ADDITIONAL INFORMATION This test has been modified from the marine equipment engineer's instructions. Its performance characteristics were determined by [facility] in a manner consistent with CLIA requirements. This test has not been cleared or approved by the U.S. Food and Drug Administration. Test Performed by: [address] [address] [employer] Mechanic: Jesus Zelaya M.D. Ph.D.; CLIA# [id number] Blood 12/13/2023 11:5 8 AM EST 12/13/2023 2:25 PM EST Narrative Resulting Agency Comment Spec In Lab Frances Eisenberg MD LAB SEND OUT ORDERAB LES Performing Organization Address [facility] Phone Number [facility] [place] [address] * Cyclic Citrullinated Peptide (12/13/2023 11:58 AM EST) Cyclic Citrulline Peptide <8.0 <=16.9 unit/mL [facility] Blood 12/13/2023 11:5 8 AM EST 12/13/2023 12:10 PM EST Narrative Resulting Agency Comment Spec In Lab Frances Eisenberg MD CHEMISTRY ORDERABLES Performing Organization Address [facility] Number [facility] [place] [place] [address] * (ABNORMAL) POCT Glucose (12/13/2023 11:56 AM EST) Glucose, POC 335(H) 65 - 199 mg/dL [facility] Comment: Supplemental ranges: <140 mg/dL before meals <180 mg/dL all other times of the day Blood 12/13/2023 11:5 6 AM EST 12/13/2023 11:56 AM EST Frances Eisenberg MD POINT OF CARE TEST O RDERABLES Performing Organization Address [facility] Co de Phone Number [facility] [place] [address] * (ABNORMAL) POCT Glucose (12/13/2023 10:51 AM EST) Glucose, POC 252(H) 65 - 199 mg/dL [facility] Comment: Supplemental ranges: <140 mg/dL before meals <180 mg/dL all other times of the day Blood 12/13/2023 10:5 1 AM EST 12/13/2023 10:51 AM EST Frances Eisenberg MD POINT OF CARE TEST O GERTRUDIS Performing Organization Address [facility] de Phone Number [facility] [place] [address] * POCT Glucose (12/13/2023 9:58 AM EST) Glucose, POC 187 65 - 199 mg/dL [facility] Comment: Supplemental ranges: <140 mg/dL before meals <180 mg/dL all other times of the day Blood 12/13/2023 9:58 AM EST 12/13/2023 9:58 AM EST Frances Eisenberg MD POINT OF CARE TEST O GERTRUDIS Performing Organization Address [facility] de Phone Number [facility] [place] [address] * XR Chest One View (12/13/2023 9:28 [...] who have questions please contact the health child day care provider that requested your imaging first. ? Narrative [...] patients who have questions please contactthe health child day care provider that requested your imaging first. Frances Eisenberg MD IMG DX ORDERABLES * EKG 12 Lead (12/13/2023 9:04 AM EST) Ventricular rate 71 BPM MUSE SYSTEM Atrial Rate 71 BPM MUSE SYSTEM P-R Interval 186 ms MUSE SYSTEM QRS Duration 110 ms MUSE SYSTEM Q-T Interval 430 ms MUSE SYSTEM QTC Calculated (Bezet) 467 ms MUSE SYSTEM Calculated P [place] 58 degrees MUSE SYSTEM Calculated R [place] -67 degrees MUSE SYSTEM Calculated T [place] 116 degrees MUSE SYSTEM INTERPRETATION Normal sinus rhythm Left axis deviation Inferior-poste rior infarct , possibly acute T wave abnormality, consider lateral ischemia Consider right ventricular involvement in acute inferior infarct Abnormal ECG When compared with ECG of 12-DEC-2023 19:04, (unconfirmed) Inferior posterior AL ST changes appear improved. Confirmed by fellow Aubrie Solorio ([id number]) on 12/13/2023 10:28:15 PM Confirmed by MD Mary Carmen, Kunal ([id number]) on 12/14/2023 2:10:45 PM MUSE SYSTEM 12/13/2023 9:04 AM EST 12/14/2023 2:10 PM EST Frances Eisenberg MD ECG ORDERABLES Performing Organization Address City/[facility]/ZIP Co de Phone Number MUSE SYSTEM * POCT Glucose (12/13/2023 9:02 AM EST) Glucose, POC 177 65 - 199 mg/dL [facility] Comment: Supplemental ranges: <140 mg/dL before meals <180 mg/dL all other times of the day Blood 12/13/2023 9:02 AM EST 12/13/2023 9:02 AM EST Frances Eisenberg MD POINT OF CARE TEST O RDERABLES Performing Organization Address City/[facility] Co de Phone Number [facility] [place] [address] * ECHO COMPLETE W CONTRAST (12/13/2023 8:11 AM EST) Anatomical Region Laterality Modality Cardiac Other 12/13/2023 6:41 AM EST Narrative 12/13/2023 8:30 AM EST [address] [place] [address] ? Echocardiogram Report Name: MARTÍN ALVARADO Rossana ?Study Date: 12/13/2023 06:41 AMBP: 110/81 mmHg ? Patient Location: [facility] CV28 A : 1960 ? Height: 180 cm ? Account: [id number] Age: 63 yrs ? 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 Interpretation Summary -Left ventricular systolic function is mildly reduced. The left ventricular ejection fraction is 41% by Wells's biplane. There is akinesis of the inferolateral and anterolateral segments. -The right ventricle is of normal size. Right ventricular systolic function is normal. Pulmonary artery hypertension could not be assessed due to inadequate tricuspid regurgitation jet. -There is no significant valve disease. -Other than a [id number] study performed on yesterday's date with similar findings, no comparison study is available. See report for additional findings. Procedure Complete-[id number]. Image enhancement Optison was used for Doppler [...] Note Mani Mcguire MD - 12/13/2023 [address] [place] [id number] Echocardiogram Report Name: MARTÍN ALVARADO Study Date: 406:41 AMBP: 110/81 mmHg Patient Location: [address] : 1960 Height: 180 cm Account: [id number] Age: 63 yrs Weight: 134 kg Gender: Male BSA: 2.5 m2 Ordering Physician: FRANCES EISENBERG Referring Physician: JEAN-CLAUDE JOINER Performed By: Danita Gore RDCS Reason For Study: ST elevation myocardial infarction involving leftcircumflex coronary artery [I21.21 (ICD-10-CM)] Exam Location: [facility]. Interpretation Summary -Left ventricular systolic function is mildly reduced. The leftventricular ejection fraction is 41% by Wells's biplane. There is akinesis of the inferolateral and anterolateral segments. -The right ventricle is of normal size. Right ventricular systolicfunction is normal. Pulmonary artery hypertension could not be assessed due toinadequate tricuspid regurgitation jet. -There is no significant valve disease. -Other than a aavvx-zh-[id number] study performed on yesterday's date withsimilar findings, no comparison study is available. See report for additionalfindings. Procedure Complete-[id number]. Image enhancement Optison was used for Dopplerdefinition. [...] * POCT Glucose (12/13/2023 7:52 AM EST) Glucose, POC 178 65 - 199 mg/dL [facility] Comment: Supplemental ranges: <140 mg/dL before meals <180 mg/dL all other times of the day Blood 12/13/2023 7:52 AM EST 12/13/2023 7:52 AM EST Frances Eisenberg MD POINT OF CARE TEST O RDERABLES Performing Organization Address [facility] Co de Phone Number [facility] [place] [address] * (ABNORMAL) Beta Hydroxybutyrate (12/13/2023 7:50 AM EST) Beta-hydroxybuturat e 0.46(H) 0.00 - 0.30 mmol/L [facility] Comment: This test has not been cleared by the US FDA. Performance characteristics of this test were determined by [facility] in accordance with CLIA requirements. This laboratory is qualified under CLIA to perform high-complexity testing. Blood 12/13/2023 7:50 AM EST 12/13/2023 7:56 AM EST Narrative Resulting Agency Comment Spec In Lab Frances Eisenberg MD CHEMISTRY ORDERABLES Performing Organization Address [facility] Co de Phone Number [facility] [place] [address] * (ABNORMAL) Basic Metabolic Panel (non-fasting) (12/13/2023 7:50 AM EST) Glucose 176 65 - 199 mg/dL [facility] Comment:Diabetes: >=200 mg/d L plus symptoms Blood Urea Nitrogen 33(H) 10 - 20 mg/dL [facility] Creatinine 1.60(H) 0.80 - 1.50 mg/dL [facility] Sodium 133(L) 135 - 145 mmol/L [facility] Potassium 4.3 3.5 - 5.0 mmol/L [facility] Comment: Please note: ??Patients with WBC >100,000 may have falsely elevated Potassium levels. ??For accurate Potassium quantification in these patients send serum separator tube (gold top) for subsequent determinations. ??Contact the Clinical Chemistry Laboratory if there are any questions. Chloride 99 98 - 107 mmol/L [facility] Carbon Dioxide 17(L) 22 - 31 mmol/L [facility] Anion Gap 17(H) 5 - 15 mmol/L [facility] Calcium 8.4(L) 8.5 - 10.5 mg/dL [facility] Est Glomerular Filtration Rate 49(L) >=60 mL/min/1. 73 m?? [facility] Comment: This patient's estimated GFR was [...] Eisenberg MD CHEMISTRY ORDERABLES Performing Organization Address City/[facility]/ZIP Co de Phone Number [facility] [place] [address] * POCT Glucose (12/13/2023 6:16 AM EST) [facility] Signature Glucose, POC 163 65 - 199 mg/dL [facility] Comment: Supplemental ranges: <140 mg/dL before meals <180 mg/dL all other times of the day Blood 12/13/2023 6:16 AM EST 12/13/2023 6:16 AM EST Frances Eisenberg MD POINT OF CARE TEST O RDERABLES Performing Organization Address City/[facility]/ZIP Co de Phone Number [facility] [place] [address] * POCT Glucose (12/13/2023 5:04 AM EST) Glucose, POC 169 65 - 199 mg/dL [facility] Comment: Supplemental ranges: <140 mg/dL before meals <180 mg/dL all other times of the day Blood 12/13/2023 5:04 AM EST 12/13/2023 5:04 AM EST Frances Eisenberg MD POINT OF CARE TEST O RDERABLES Performing Organization Address City/[facility]/ZIP Co de Phone Number [facility] [place] [address] * POCT Glucose (12/13/2023 4:09 AM EST) Glucose, POC 179 65 - 199 mg/dL [facility] Comment: Supplemental ranges: <140 mg/dL before meals <180 mg/dL all other times of the day Blood 12/13/2023 4:09 AM EST 12/13/2023 4:09 AM EST Frances Eisenberg MD POINT OF CARE TEST O RDERABLES Performing Organization Address [facility] de Phone Number [facility] [place] [place] [address] * (ABNORMAL) Beta Hydroxybutyrate (12/13/2023 4:00 AM EST) Beta-hydroxybuturat e 0.35(H) 0.00 - 0.30 mmol/L [facility] Comment: This test has not been cleared by the US FDA. Performance characteristics of this test were determined by [facility] in accordance with CLIA requirements. This laboratory is qualified under CLIA to perform high-complexity testing. Blood 12/13/2023 4:00 AM EST 12/13/2023 4:24 AM EST Narrative Resulting Agency Comment Spec In Lab Frances Eisenberg MD CHEMISTRY ORDERABLES Performing Organization Address [facility] Co de Phone Number [facility] [place] [address] * (ABNORMAL) Basic Metabolic Panel (non-fasting) (12/13/2023 4:00 AM EST) Glucose 168 65 - 199 mg/dL [facility] Comment:Diabetes: >=200 mg/d L plus symptoms Blood Urea Nitrogen 31(H) 10 - 20 mg/dL [facility] Creatinine 1.64(H) 0.80 - 1.50 mg/dL [facility] Sodium 136 135 - 145 mmol/L [facility] Potassium 4.2 3.5 - 5.0 mmol/L [facility] Comment: Please note: ??Patients with WBC >100,000 may have falsely elevated Potassium levels. ??For accurate Potassium quantification in these patients send serum separator tube (gold top) for subsequent determinations. ??Contact the Clinical Chemistry Laboratory if there are any questions. Chloride 101 98 - 107 mmol/L [facility] Carbon Dioxide 19(L) 22 - 31 mmol/L [facility] Anion Gap 16(H) 5 - 15 mmol/L [facility] Calcium 8.3(L) 8.5 - 10.5 mg/dL [facility] Est Glomerular Filtration Rate 47(L) >=60 mL/min/1. 73 m?? [facility] Comment: This patient's estimated GFR was [...] In Lab Frances Eisenberg MD CHEMISTRY ORDERABLES [facility] [place] [address] * POCT Glucose (12/13/2023 1:59 AM EST) Glucose, POC 179 65 - 199 mg/dL [facility] Comment: Supplemental ranges: <140 mg/dL before meals <180 mg/dL all other times of the day Blood 12/13/2023 1:59 AM EST 12/13/2023 1:59 AM EST Frances Eisenberg MD POINT OF CARE TEST O RDERABLES [facility] [place] [address] * (ABNORMAL) Differential, Automated (12/13/2023 1:56 AM EST) [facility] Neutrophil % 77.2 % [facility] Neutrophil Absolute 12.55(H) 1.70 - 6.10 x10(3)/mc L [facility] Lymph % 13.4 % [facility] Lymphocytes Abs 2.2 0.9 - 3.2 x10(3)/[facility] Monocyte % 8.6 % [facility] Monocyte Abs 1.4(H) 0.3 - 0.9 x10(3)/[facility] Eos % 0.1 % [facility] Eosinophils Abs 0.0 0.0 - 0.4 x10(3)/ L [facility] Basophil % 0.1 % [facility] Baso Absolute 0.0 0.0 - 0.1 x10(3)/[facility] Immature Gran % 0.60 % [facility] Comment: Immature granulocytes(IG's)percentage and absolute count will include metamyelocytes, myelocytes, and promyelocytes. Blood smears from CBCs yielding IG's will be scanned manually for concordance. If this scan disagrees with the automated IG or if promyelocytes are noted, a manual differential will be performed. Immature Gran Absolute 0.10(H) 0.00 - 0.04 x10(3)/mc L [facility] Blood 12/13/2023 1:56 AM EST 12/13/2023 2:08 AM EST Narrative Resulting Agency Comment Spec In Lab Dorys Cardoza MD HEMATOLOGY ORDERABLE S [facility] [place] [address] * (ABNORMAL) Hemogram (12/13/2023 1:56 AM EST) White Blood Cell 16.2(H) 4.0 - 9.5 x10(3)/mc L [facility] Red Blood Cell 4.88 4.58 - 5.54 x10(6)/mc L [facility] Hemoglobin 14.2 13.7 - 16.5 g/dL [facility] Hematocrit 41.7 40.5 - 48.5 % [facility] Mean Cell Volume 85.5 82.9 - 93.1 fL [facility] Mean Cell Hemoglobin 29.1 27.5 - 32.1 pg [facility] Mean Cell Hemoglobin Concentration 34.1 32.0 - 35.7 g/dL [facility] Platelet 272 145 - 357 x10(3)/mc L [facility] RDW Standard Deviation 39.0 36.0 - 45.0 fL [facility] RDW coefficient of variation 12.6 11.4 - 13.8 % [facility] Mean Platelet Volume 10.6 7.6 - 12.9 fL [facility] NRBC% auto 0.0 % [facility] NRBC Absolute 0.000 0.000 - 0.000 x10(3)/ L [facility] Blood 12/13/2023 1:56 AM EST 12/13/2023 2:08 AM EST Narrative Resulting Agency Comment Spec In Lab Dorys Cardoza MD HEMATOLOGY ORDERABLE S [facility] [place] [address] * POCT Glucose (12/13/2023 12:40 AM EST) Glucose, POC 188 65 - 199 mg/dL [facility] Comment: Supplemental ranges: <140 mg/dL before meals <180 mg/dL all other times of the day Blood 12/13/2023 12:4 0 AM EST 12/13/2023 12:40 AM EST Frances Eisenberg MD POINT OF CARE TEST O RDERABLES [facility] [place] [address] * Hemogram (12/13/2023 12:34 AM EST) White Blood Cell Clotted 4.0 - 9.5 [facility] Comment: Called by: ashley, Read back by: Claire Schwartz, Date/Time:12/13/23 01:52. Corrected from 17.0 x10(3)/mcL [HI] on 12/13/23 1:54:17 EST by Merlin Kenney Red Blood Cell Clotted 4.58 - 5.54 [facility] Comment: Called by: ashley, Read back by: Claire Schwartz, Date/Time:12/13/23 01:52. Corrected from 5.01 x10(6)/mcL on 12/13/23 1:54:17 EST by Merlin Kenney Hemoglobin Clotted 13.7 - 16.5 [facility] Comment: Called by: ashley, Read back by: Claire Schwartz, Date/Time:12/13/23 01:52. Corrected from 14.5 g/dL on 12/13/23 1:54:17 EST by Merlin Kenney Hematocrit Clotted 40.5 - 48.5 [facility] Comment: Called by: ashley, Read back by: Claire Schwartz, Date/Time:12/13/23 01:52. Corrected from 42.1 % on 12/13/23 1:54:17 EST by Merlin Kenney Mean Cell Volume Clotted 82.9 - 93.1 [facility] Comment: Called by: ashley, Read back by: Claire Schwartz, Date/Time:12/13/23 01:52. Corrected from 84.0 fL on 12/13/23 1:54:17 EST by Meriln Kenney Mean Cell Hemoglobin Clotted 27.5 - 32.1 [facility] Comment: Called by: ashley, Read back by: Claire Schwartz, Date/Time:12/13/23 01:52. Corrected from 28.9 pg on 12/13/23 1:54:17 EST by Merlin Kenney Mean Cell Hemoglobin Concentration Clotted 32.0 - 35.7 [facility] Comment: Called by: ashley, Read back by: Claire Schwartz, Date/Time:12/13/23 01:52. Corrected from 34.4 g/dL on 12/13/23 1:54:17 EST by Merlin Kenney Platelet Clotted 145 - 357 [facility] Comment: Called by: ashley, Read back by: Claire Schwartz, Date/Time:12/13/23 01:52. Corrected from 251 x10(3)/mcL on 12/13/23 1:54:17 EST by Merlin Kenney RDW Standard Deviation Clotted 36.0 - 45.0 [facility] Comment: Called by: ashley, Read back by: Claire Schwartz, Date/Time:12/13/23 01:52. Corrected from 38.2 fL on 12/13/23 1:54:17 EST by Merlin Kenney RDW coefficient of variation Clotted 11.4 - 13.8 [facility] Comment: Called by: ashley, Read back by: Claire Schwartz, Date/Time:12/13/23 01:52. Corrected from 12.6 % on 12/13/23 1:54:17 EST by Merlin Kenney Mean Platelet Volume Clotted 7.6 - 12.9 [facility] Comment: Called by: ashley, Read back by: Claire Schwartz, Date/Time:12/13/23 01:52. Corrected from 10.5 fL on 12/13/23 1:54:17 EST by Merlin Kenney NRBC% auto Clotted [facility] Comment: Called by: ashley, Read back by: Claire Schwartz, Date/Time:12/13/23 01:52. Corrected from 0.0 % [NA] on 12/13/23 1:54:17 EST by Merlin Kenney NRBC Absolute Clotted 0.000 - 0.000 [facility] Comment: Called by: ashley, Read back by: Claire Schwartz, Date/Time:12/13/23 01:52. Corrected from 0.000 x10(3)/mcL on 12/13/23 1:54:17 EST by Merlin Kenney Blood 12/13/2023 12:3 4 AM EST 12/13/2023 1:02 AM EST Narrative Resulting Agency Comment Spec In Lab Dorys Cardoza MD HEMATOLOGY ORDERABLE S Performing Organization Address [facility] Co de Phone Number [facility] [place] [place] [address] * Beta Hydroxybutyrate (12/13/2023 12:34 AM EST) Beta-hydroxybuturat e 0.18 0.00 - 0.30 mmol/L [facility] Comment: This test has not been cleared by the [place] FDA. Performance characteristics of this test were determined by [facility] in accordance with CLIA requirements. This laboratory is qualified under CLIA to perform high-complexity testing. Blood 12/13/2023 12:3 4 AM EST 12/13/2023 1:02 AM EST Narrative Resulting Agency Comment Spec In Lab Frances Eisenberg MD CHEMISTRY ORDERABLES Performing Organization Address [facility] Co de Phone Number [facility] [place] [address] * (ABNORMAL) Basic Metabolic Panel (non-fasting) (12/13/2023 12:34 AM EST) Glucose 189 65 - 199 mg/dL [facility] Comment:Diabetes: >=200 mg/d L plus symptoms Blood Urea Nitrogen 26(H) 10 - 20 mg/dL [facility] Creatinine 1.48 0.80 - 1.50 mg/dL [facility] Sodium 140 135 - 145 mmol/L [facility] Potassium 4.1 3.5 - 5.0 mmol/L [facility] Comment: Please note: ??Patients with WBC >100,000 may have falsely elevated Potassium levels. ??For accurate Potassium quantification in these patients send serum separator tube (gold top) for subsequent determinations. ??Contact the Clinical Chemistry Laboratory if there are any questions. Chloride 104 98 - 107 mmol/L [facility] Carbon Dioxide 19(L) 22 - 31 mmol/L [facility] Anion Gap 17(H) 5 - 15 mmol/L [facility] Calcium 8.1(L) 8.5 - 10.5 mg/dL [facility] Est Glomerular Filtration Rate 53(L) >=60 mL/min/1. 73 m?? [facility] Comment: This patient's estimated GFR was [...] Eisenberg MD CHEMISTRY ORDERABLES Performing Organization Address City/State/[facility] Co de Phone Number [facility] [place] [address] * (ABNORMAL) Hemoglobin A1c (12/13/2023 12:34 AM EST) Hemoglobin A1c 10.0(H) 4.3 - 5.6 % [facility] Comment: Reference Range: 4.3 - 5.6% [...] Mellitus, Diabetes Care 2013; 36: Suppl. 1, H16-39 Estimated Average Glucose 241 mg/dL [facility] Blood 12/13/2023 12:3 4 AM EST 12/13/2023 1:02 AM EST Narrative Resulting Agency Comment Spec In Lab Frances Eisenberg MD CHEMISTRY ORDERABLES Performing Organization Address [facility] de Phone Number [facility] [place] [address] * (ABNORMAL) Hepatic Function Panel (12/13/2023 12:34 AM EST) Protein, Total 6.4 6.1 - 8.0 g/dL [facility] Albumin 3.9 3.2 - 5.2 g/dL [facility] Aspartate Aminotransferase 671(H) 0 - 39 unit/L [facility] Alanine Aminotransferase 109(H) 0 - 55 unit/L [facility] Alkaline Phosphatase 55 40 - 130 unit/L [facility] Bilirubin, Total 1.3 0.2 - 1.3 mg/dL [facility] Bilirubin, Direct 0.2 0.0 - 0.3 mg/dL [facility] Blood 12/13/2023 12:3 4 AM EST 12/13/2023 1:02 AM EST Narrative Resulting Agency Comment Spec In Lab Frances Eisenberg MD CHEMISTRY ORDERABLES Performing Organization Address [facility] Co de Phone Number [facility] [place] [address] * TSH (12/13/2023 12:34 AM EST) Thyroid Stimulating Hormone 0.32 0.27 - 4.20 mcIU/mL [facility] Comment: Reference Interval (mcIU/mL): Females: ??First Trimester: 0.23-3.88 ??Second Trimester: 0.22-3.90 ??Third Trimester: 0.44-4.66 Blood 12/13/2023 12:3 4 AM EST 12/13/2023 1:02 AM EST Narrative Resulting Agency Comment Spec In Lab Frances Eisenberg MD CHEMISTRY ORDERABLES Performing Organization Address [facility] Co de Phone Number [facility] [place] [address] * (ABNORMAL) POCT Glucose (12/12/2023 11:26 PM EST) Glucose, POC 208(H) 65 - 199 mg/dL [facility] Comment: Supplemental ranges: <140 mg/dL before meals <180 mg/dL all other times of the day Blood 12/12/2023 11:2 6 PM EST 12/12/2023 11:26 PM EST Frances Eisenberg MD POINT OF CARE TEST O RDERABLES Performing Organization Address [facility] Co de Phone Number [facility] [place] [address] * Potassium (12/12/2023 10:14 PM EST) Potassium 3.8 3.5 - 5.0 mmol/L [facility] Comment: result rechecked-ssc Please note: ??Patients [...] Eisenberg MD CHEMISTRY ORDERABLES Performing Organization Address [facility] Co de Phone Number [facility] [place] [address] * (ABNORMAL) POCT Glucose (12/12/2023 10:06 PM EST) Glucose, POC 250(H) 65 - 199 mg/dL [facility] Comment: Supplemental ranges: <140 mg/dL before meals <180 mg/dL all other times of the day Blood 12/12/2023 10:0 6 PM EST 12/12/2023 10:06 PM EST Frances Eisenberg MD POINT OF CARE TEST O RDERABLES Performing Organization Address [facility] Co de Phone Number [facility] [address] * (ABNORMAL) POCT Glucose (12/12/2023 9:14 PM EST) Glucose, POC 361(H) 65 - 199 mg/dL [facility] Comment: Supplemental ranges: <140 mg/dL before meals <180 mg/dL all other times of the day Blood 12/12/2023 9:14 PM EST 12/12/2023 9:14 PM EST Frances Eisenberg MD POINT OF CARE TEST O GERTRUDIS Performing Organization Address [facility] Co de Phone Number [facility] [place] [address] * (ABNORMAL) POCT Glucose (12/12/2023 8:12 PM EST) Glucose, POC 426(H) 65 - 199 mg/dL [facility] Comment: Supplemental ranges: <140 mg/dL before meals <180 mg/dL all other times of the day Blood 12/12/2023 8:12 PM EST 12/12/2023 8:12 PM EST Frances Eisenberg MD POINT OF CARE TEST O GERTRUDIS Performing Organization Address [facility] Co de Phone Number [facility] [place] [address] * (ABNORMAL) Basic Metabolic Panel (non-fasting) (12/12/2023 8:00 PM EST) Glucose 428(H) 65 - 199 mg/dL [facility] Comment:Diabetes: >=200 mg/d L plus symptoms Blood Urea Nitrogen 23(H) 10 - 20 mg/dL [facility] Creatinine 1.48 0.80 - 1.50 mg/dL [facility] Sodium 133(L) 135 - 145 mmol/L [facility] Potassium 7.4(Criti preston) 3.5 - 5.0 mmol/L [facility] Comment: ?? result rechecked-HOLLIE, Called by: HOLLIE, Read back by: ARTUR EL, Date/Time:12/12/23 21:55. Please note: ??Patients with WBC >100,000 may have falsely elevated Potassium levels. ??For accurate Potassium quantification in these patients send serum separator tube (gold top) for subsequent determinations. ??Contact the Clinical Chemistry Laboratory if there are any questions. Chloride 99 98 - 107 mmol/L [facility] Carbon Dioxide 16(L) 22 - 31 mmol/L [facility] Anion Gap 18(H) 5 - 15 mmol/L [facility] Calcium 8.1(L) 8.5 - 10.5 mg/dL [facility] Est Glomerular Filtration Rate 53(L) >=60 mL/min/1. 73 m?? [facility] Comment: This patient's estimated GFR was [...] In Lab Frances Eisenberg MD CHEMISTRY ORDERABLES [facility] [place] [place] [address] * (ABNORMAL) Phosphorus (12/12/2023 8:00 PM EST) Phosphorus 4.8(H) 2.5 - 4.5 mg/dL [facility] Blood 12/12/2023 8:00 PM EST 12/12/2023 8:28 PM EST Narrative Resulting Agency Comment Spec In Lab Frances Eisenberg MD CHEMISTRY ORDERABLES Performing Organization Address [facility] de Phone Number [facility] [address] * (ABNORMAL) Magnesium (12/12/2023 8:00 PM EST) Magnesium 0.66(L) 0.69 - 1.07 mmol/L [facility] Blood 12/12/2023 8:00 PM EST 12/12/2023 8:28 PM EST Narrative Resulting Agency Comment Spec In Lab Frances Eisenberg MD CHEMISTRY ORDERABLES Performing Organization Address [facility] de Phone Number [facility] [address] * (ABNORMAL) POCT Glucose (12/12/2023 7:23 PM EST) Glucose, POC 463(H) 65 - 199 mg/dL [facility] Comment: Supplemental ranges: <140 mg/dL before meals <180 mg/dL all other times of the day Blood 12/12/2023 7:23 PM EST 12/12/2023 7:23 PM EST Frances Eisenberg MD POINT OF CARE TEST O RDERABLES Performing Organization Address [facility] de Phone Number [facility] [place] [address] * CARDIAC CATHETERIZATION (12/12/2023 7:06 PM EST) Anatomical Region Laterality Modality Other Narrative 12/13/2023 9:54 AM EST ?[facility] ? Cardiac Catheterization/Intervention Report ? Patient Name: Martín Alvarado. ? Procedure Date: 12/12/2023 ? A #: [id number] ? Primary Physician: Brandy, Sergey S ? Case #: [id number] ? File Name: [id number] ? Catheterization Order Number: [id number] ? [facility] ? Final Report [place], [place] ? Patient Name: ? Martín D. Stephen ? ID#: ?[id number] ? : ?1960 ? Procedure Date: ? December 12, 2023 ? Case #: ? [id number] ? Room: ? 5 ? Case Physician: [...] procedure was Emergent. The indication for ?the lab scientist visit is ACS less than or equal [...] 3.5 guiding catheter and a 3.5 Fr [place] [employer] Native 20 Mhz using ?Manual pullback. ??Imaging was [...] ? A premounted 4.00 x 22 mm Farrell [place] (DYANA) was deployed ? with a maximum [...] may require ?modification of this regimen. Consult [facility] Interventional Cardiology for ?questions. [...] against any medical treatment. Consult ?http://tools.acc.org/DAPTriskapp/#!/content/calculator/ or [facility] ?Interventional Cardiology for questions [...] Ammended: 01/08/2024 ??14:22 ? Procedure Note Sergey Nava, MD - 01/08/2024 [facility] Cardiac Catheterization/Intervention Report Patient Name: Martín Alvarado Procedure Date: 12/12/2023 A #: [id number] Primary Physician: Sergey Nava Case #: [id number] File Name: [id number] Catheterization Order Number: [id number] [facility] FinalReport [place], [place] Patient Name: Martín Alvarado ID#:[id number] :1960 Procedure Date: December 12, 2023 Case [...] was designated as ASA Class IV. The [facility] clinical frailty scale is 4: Vulnerable. Diagnostic Tests: Electrocardiography: EKG was assessed by ECG. EKG was Abnormal. EKG showed STDeviation >= 0.5 mm. Medications Prior to Procedure: Aspirin, Angiotensin II Receptor Jeimy, Calcium ChannelBlocking Agent and Thrombolytic (any). Indications for Diagnostic Cath: The priority of the diagnostic procedure was Emergent. Theindication for the lab scientist visit is ACS less than or equal [...] 3.5 guiding catheter and a 3.5 Fr [place] 20 Mhzusing Manual pullback. Imaging was successful. [...] The priority for the procedure was Emergent.The [facility] indication for the procedure was STEMI-Rescue (afterUnsuccessful [...] The lesion was predilated with a 2.50mm [id number] MM balloon with a maximum inflation pressure of 15atmospheres. A premounted 4.00 x 22 mm Farrell [place] (DYANA) wasdeployed with a maximum inflation pressure [...] situation mayrequire modification of this regimen. Consult [facility] Interventional Cardiologyfor questions. The [...] or against any medical treatment.Consult http://tools.acc.org/DAPTriskapp/#!/content/calculator/ or [facility] Interventional Cardiology for questions [...] present for the entire procedure. Dr. Sergey Nava M.D. was present during the [...] EKG 12 Lead (12/12/2023 7:04 PM EST) Pathologist [facility] Ventricular rate 92 BPM MUSE SYSTEM Atrial Rate 92 BPM MUSE SYSTEM P-R Interval 232 ms MUSE SYSTEM QRS Duration 138 ms MUSE SYSTEM Q-T Interval 420 ms MUSE SYSTEM QTC Calculated (Bezet) 519 ms MUSE SYSTEM Calculated P [place] 58 degrees MUSE SYSTEM Calculated R [place] 0 degrees MUSE SYSTEM Calculated T [place] 125 degrees MUSE SYSTEM INTERPRETATION Sinus rhythm with 1st degree A-V block ACUTE AL / STEMI ST elevation in inferior and posterior leads Abnormal ECG No previous ECGs available Confirmed by MD MALGORZATA, ABRAM ([id number]) on 12/13/2023 10:29:21 AM MUSE SYSTEM 12/12/2023 7:04 PM EST 12/13/2023 10:29 AM EST Frances Eisenberg MD ECG ORDERABLES MUSE SYSTEM * (ABNORMAL) Differential, Automated (12/12/2023 6:30 PM EST) Pathologist [facility] Neutrophil % 82.5 % [facility] Neutrophil Absolute 17.78(H) 1.70 - 6.10 x10(3)/mc L [facility] Lymph % 12.0 % [facility] Lymphocytes Abs 2.6 0.9 - 3.2 x10(3)/mc L [facility] Monocyte % 4.5 % [facility] Monocyte Abs 1.0(H) 0.3 - 0.9 x10(3)/mc L [facility] Eos % 0.0 % [facility] Eosinophils Abs 0.0 0.0 - 0.4 x10(3)/mc L [facility] Basophil % 0.1 % [facility] Baso Absolute 0.0 0.0 - 0.1 x10(3)/mc L [facility] Immature Gran % 0.90 % [facility] Comment: Immature granulocytes(IG's)percentage and absolute count will include metamyelocytes, myelocytes, and promyelocytes. Blood smears from CBCs yielding IG's will be scanned manually for concordance. If this scan disagrees with the automated IG or if promyelocytes are noted, a manual differential will be performed. Immature Gran Absolute 0.19(H) 0.00 - 0.04 x10(3)/mc L [facility] Blood 12/12/2023 6:30 PM EST 12/12/2023 6:40 PM EST Narrative Resulting Agency Comment Spec In Lab Sergey Nava MD HEMATOLOGY ORDERABLE S Performing Organization Address City/State/[facility] Co de Phone Number [facility] [place] [address] * (ABNORMAL) Hemogram (12/12/2023 6:30 PM EST) White Blood Cell 21.6(H) 4.0 - 9.5 x10(3)/mc L [facility] Red Blood Cell 4.89 4.58 - 5.54 x10(6)/mc L [facility] Hemoglobin 14.2 13.7 - 16.5 g/dL [facility] Hematocrit 41.4 40.5 - 48.5 % [facility] Mean Cell Volume 84.7 82.9 - 93.1 fL [facility] Mean Cell Hemoglobin 29.0 27.5 - 32.1 pg [facility] Mean Cell Hemoglobin Concentration 34.3 32.0 - 35.7 g/dL [facility] Platelet 331 145 - 357 x10(3)/mc L [facility] RDW Standard Deviation 37.8 36.0 - 45.0 fL [facility] RDW coefficient of variation 12.5 11.4 - 13.8 % [facility] Mean Platelet Volume 10.6 7.6 - 12.9 fL [facility] NRBC% auto 0.0 % [facility] NRBC Absolute 0.000 0.000 - 0.000 x10(3)/mc L [facility] Blood 12/12/2023 6:30 PM EST 12/12/2023 6:40 PM EST Narrative Resulting Agency Comment Spec In Lab Sergey Nava MD HEMATOLOGY ORDERABLE S Performing Organization Address City/[facility]/ZIP Co de Phone Number [facility] [place] [address] * (ABNORMAL) Beta Hydroxybutyrate (12/12/2023 6:30 PM EST) Beta-hydroxybuturat e 2.09(H) 0.00 - 0.30 mmol/L [facility] Comment: This test has not been cleared by the [place] FDA. Performance characteristics of this test were determined by [facility] in accordance with CLIA requirements. This laboratory is qualified under CLIA to perform high-complexity testing. Blood 12/12/2023 6:30 PM EST 12/12/2023 6:40 PM EST Narrative Resulting Agency Comment Spec In Lab Sergey Nava MD CHEMISTRY ORDERABLES Performing Organization Address [facility] Co de Phone Number [facility] [place] [address] * (ABNORMAL) Lactate, whole blood, send to lab ([facility] (12/12/2023 6:30 PM EST) Lactate WB 3.8(H) 0.5 - 2.2 mmol/L [facility] Blood 12/12/2023 6:30 PM EST 12/12/2023 6:40 PM EST Narrative Resulting Agency Comment Spec In Lab Sergey Nava MD CHEMISTRY ORDERABLES Performing Organization Address City/[facility]/ZIP Co de Phone Number [facility] [place] [address] * (ABNORMAL) BMP w/fasting Glucose (12/12/2023 6:30 PM EST) Glucose Fasting 555(Criti preston) 65 - 99 mg/dL [facility] Comment: Called by: HOLLIE Read back by: CLAIRE SCHWARTZ, Date/Time:12/12/23 20:19. [...] of Diabetes Mellitus, Position Statement from the [place] [employer]. ??Diabetes Care, Volume 33, Supplement 1, Nov 2009 Blood Urea Nitrogen 24(H) 10 - 20 mg/dL [facility] Creatinine 1.72(H) 0.80 - 1.50 mg/dL [facility] Sodium 132(L) 135 - 145 mmol/L [facility] Potassium 3.8 3.5 - 5.0 mmol/L [facility] Comment: Please note: ??Patients with WBC >100,000 may have falsely elevated Potassium levels. ??For accurate Potassium quantification in these patients send serum separator tube (gold top) for subsequent determinations. ??Contact the Clinical Chemistry Laboratory if there are any questions. Chloride 96(L) 98 - 107 mmol/L [facility] Carbon Dioxide 14(L) 22 - 31 mmol/L [facility] Anion Gap 22(H) 5 - 15 mmol/L [facility] Calcium 8.0(L) 8.5 - 10.5 mg/dL [facility] Est Glomerular Filtration Rate 45(L) >=60 mL/min/1. 73 m?? [facility] Comment: This patient's estimated GFR was [...] Nava MD CHEMISTRY ORDERABLES Performing Organization Address City/[facility]/ZIP Co de Phone Number [facility] [place] [address] * (ABNORMAL) POCT Glucose (12/12/2023 6:18 PM EST) Glucose, POC 562(Critic al) 65 - 199 mg/dL [facility] Comment: Supplemental ranges: <140 mg/dL before meals <180 mg/dL all other times of the day Blood 12/12/2023 6:18 PM EST 12/12/2023 6:18 PM EST Frances Eisenberg MD POINT OF CARE TEST O RDERABLES Performing Organization Address [facility] Co de Phone Number [facility] [place] [address] documented in this encounter Visit Diagnoses Not on filedocumented in this encounter Admitting Diagnoses Diagnosis STEMI [...] 75 mg, Oral, DAILY, First dose on Marcelle 12/13/23 at 0900, Until Discontinued, Recovery (Recovery-Hospital Unit), [...] insulin orders before administering the next dose. EPINEPHrine (Adrenalin) (8 mcg/mL) in dextrose 5% 250 mL infusion CONTINUOUS PRN, Starting on Sun12/12/23 at 1802, Until Sun12/12/23 at 1850, Intra-Operative (Intra-Procedure) New Bag 12/12/2023 6:02 PM EST 2 mcg/min 15 mL/hr fentaNYL (pf) (50 mcg/mL) multi-dose injection PRN, Starting on Sun12/12/23 at 1755, Until Sun12/12/23 at 1850, Intra-Operative (Intra-Procedure), Routine Given 12/12/2023 5:55 PM EST 25 mcg furosemide (Lasix) tablet 40 mg 40 mg, [...] tube = 37.5 grams.), Routine heparin (porcine) (1,000 units/mL) injection PRN, Starting on Sun12/12/23 at 1758, Until Sun12/12/23 at 1850, Intra-Operative (Intra-Procedure), Routine Given 12/12/2023 6:27 PM EST 6,000 Units Given 12/12/2023 5:58 PM EST 6,000 Units heparin (porcine) (5,000 units/1 mL) subcutaneous injection [...] 60 Units, Subcutaneous, DAILY, First dose on 12/15/23 at 0900, Until Discontinued, Routine Given 12/16/2023 [...] Given 12/16/2023 12:33 AM EST 6 Units iohexoL (Omnipaque) (350 mg/mL) solution PRN, Starting on Sun12/12/23 at 1830, Until Sun12/12/23 at 1850, Intra-Operative (Intra-Procedure), Routine Given 12/12/2023 6:30 PM EST 124 mLs ipratropium-albuteroL (Duoneb) 0.5 mg-3 mg(2.5 mg base)/3 mL nebulizer solution 3 mL 3 mL, Nebulization, 4 TIMES DAILY PRN, Starting on Sun12/13/23 at 1136, Until Sun12/16/23 at 1849, Wheezing, Routine lidocaine (Xylocaine) 1% (10 mg/mL) injection 3 mg 3 mg (0.3 mL), Subcutaneous, ONCE PRN, 1 dose, Starting on Sun12/12/23 at 1831, Until Sun12/16/23 at 1849, for discomfort with PIV insertion, Routine losartan (Cozaar) tablet 50 mg 50 mg, Oral, DAILY, First dose (after last modification) on Sun12/16/23 at 0900, Until Discontinued, Hold for SBP<90, Routine Given 12/16/2023 8:28 AM EST 50 mg metoproloL tartrate (Lopressor) tablet 25 mg 25 mg, Oral, EVERY 6 HOURS SCHEDULED, First dose (after last modification) on Sun12/14/23 at 1200, Until Discontinued, Hold for SBP<90 or HR<60, Routine Given 12/16/2023 12:30 PM EST 25 mg Given 12/16/2023 6:30 AM EST 25 mg Given 12/16/2023 12:33 AM EST 25 mg midazolam (pf) (Versed) (1 mg/mL) multi-dose injection PRN, Starting on Sun12/12/23 at 1755, Until Sun12/12/23 at 1850, Intra-Operative (Intra-Procedure), Routine Given 12/12/2023 5:55 PM EST 1 mg nitroGLYcerin 100 mcg/mL intracoronary dilution PRN, Starting on Sun12/12/23 at 1757, Until Sun12/12/23 at 1850, Intra-Operative (Intra-Procedure), Routine Given 12/12/2023 5:57 PM EST 150 mcg NORepinephrine (Levophed) (16 mcg/mL) in dextrose 5% [...] Given 12/14/2023 11:31 AM EST 2 puffs potassium chloride ER (Klor-Con M) crystal tablet [...] Given 12/12/2023 9:19 PM EST 40 mEq rosuvastatin (Crestor) tablet 40 [...] Given 12/14/2023 11:32 AM EST 2 puffs verapamiL (Isoptin) (2.5 mg/mL) injection PRN, Starting on Sun12/12/23 at 1756, Until Sun12/12/23 at 1850, Administer over 2 Minutes, Intra-Operative (Intra-Procedure) Given 12/12/2023 5:56 PM EST 2 .5 mg documented in this encounter Active and Recently [...] 40 mg, Oral, DAILY, First dose on 12/16/23 at 1430, Until Discontinued, Routine 1528 (Given - Provider: Kimberly Colorado RN) heparin (porcine) (5,000 units/1 mL) subcutaneous injection 5,000 Units 5,000 Units, Subcutaneous, EVERY 8 HOURS SCHEDULED, First dose on Marcelle 12/13/23 at 0915, Until Discontinued, Routine 0529 (Given - Provider: Colleen Vargas RN)1453 (Given - Provider: Emily Eckert RN)2222 (Given - Provider: Colleen Vargas RN) 0609 (Given - Provider: Colleen [...] and lispro correction is added. , Routine 0829 (Given - Provider: Emily Eckert RN) insulin [...] 172 (Given - Provider: Emily Eckert RN) 1659 (Given - Provider: Emily Eckert RN) insulin glargine-ygfn (Semglee) (100 unit/mL) subcutaneous injection vial 60 Units 60 Units, Subcutaneous, DAILY, First dose on Sun12/15/23 at 0900, Until Discontinued, Routine 08 (Given - Provider: Emily Eckert RN) 0827 (Given - Provider: Kimberly Colorado RN) insulin [...] Eckert RN)1659 (Given - Provider: Emily Eckert RN)205 (Given - Provider: Anthony Escalante RN) 0033 [...] Eckert RN) 0030 (Given - Provider: Colleen Vargas RN)0609 (Given - Provider: Colleen Vargas RN)1139 (Given - Provider: Emily Eckert RN)1836 (Given - Provider: Emily Eckert RN) 0033 (Given - Provider: Anthony Escalante, CAROL)0630 (Given - Provider: Anthony Escalante, RN)1230 (Given - Provider: Kimberly Colorado, CAROL) olodateroL (Striverdi Respimat) inhaler 2 puff(Linked Group 2) 2 puff, Inhalation, DAILY, First dose on Marcelle 12/13/23 at 0900, Until Discontinued, Interchanged for Anoro Ellipta per Pharmacy and Therapeutics (P&T) Committee therapeutic interchange policy. , Routine 1131 (Given - Provider: Emily Eckert RN) 0811 (Given - Provider: Emily Eckert RN) 0830 (Given - Provider: Kimberly Colorado, CAROL) potassium chloride ER (Klor-Con M) crystal tablet [...] Escalante RN) 0833 (Given - Provider: Kimberly Colorado, CAROL) sodium chloride 0.9 % (flush) (BD PosiFlush Normal Saline 0.9) flush 5 mL 5 mL, Intravenous, 2 TIMES DAILY, First dose on Sun12/12/23 at 2215, Until Discontinued, Routine 0831 (Given - Provider: Emily Eckert, RN)2100 (Given - Provider: Colleen Vargas RN) 0811 (Given - Provider: Emily Eckert RN)2100 (Given - Provider: Anthony Escalante, CAROL) 0832 (Given - Provider: Kimberly Colorado, CAROL) spironolactone (Aldactone) tablet 25 mg 25 mg, Oral, DAILY, First dose on Sun12/14/23 at 1015, Until Discontinued, Hold for SBP<90 DO NOT SPLIT, CRUSH OR OPEN, Routine 0949 (Given - Provider: Emily Eckert RN) 0816 (Given - Provider: Emily Eckert RN) 0828 (Given - Provider: Kimberly Colorado, CAROL) tiotropium bromide (Spiriva Respimat) 2.5 mcg/actuation inhaler [...] Eckert RN) 0830 (Given - Provider: Kimberly Colorado, CAROL) Continuous Medication Order 12/14/2023 12/15/2023 12/16/2023 insulin [...] RN)1736 (Rate/Dose Change - Provider: Emily Eckert RN)1923 (Rate/Dose Change - Provider: Colleen Vargas RN)2023 [...] dose, Starting on Sun12/12/23 at 1831, Until Sun12/16/23 at 1849, for discomfort with PIV insertion, [...] 4 HOURS PRN, Starting on Sun12/12/23 at 204, Until 12/16/23 at 1849, hypokalemia, Administer for [...] 4 HOURS PRN, Starting on Sun12/12/23 at 204, Until 12/16/23 at 1849, hypokalemia, Administer for [...] Sun12/12/23 at 2128, Until 12/16/23 at 1849, flush, Flush pertains [...] Routine documented in this encounter Care Teams Clerical Proofreader Relationship Specialty Start Date End Date Leo Alegre DO [address] [place] [address] PCP - General Family Medicine 03/03/21 documented as of this encounter
--- OUTSIDE RECORDS SUMMARY | 2024-06-18 14:57 | XMS_ITS | Encounter Summary ---
Author Organization Formerly [facility], [facility] Address [facility] [place] [address] Care Team Providers Care Fabricating Machine Operator Name Role Phone Leo Alegre DO Primary Care Provider +1- [phone] Encounter Details Date Type Department Care Team (Late st Contact Info) Description 12/12/2023 Notes Only Cardiology [facility] [place] [phone] Lisa Laurent MD [facility] [address] [place] [id number] Social History Tobacco Use Types Packs/Day Years Used Date Smoking Tobacco: Former Cigarettes 2.8 30 1 973 - 2002 Smokeless Tobacco: Never Alcohol Use Standard Drinks/Week Comments Not Currently 0 (1 standard drink = 0.6 oz pur e alcohol) [facility] Utilities Answer Date Recorded In the past 12 months has e [employer], gas, oil, or water [employer] threatened to shut off services in your [...] place to sleep or slept in a retirement (including now)? No 12/13/2023 IPV Inpatient Questions [...] as of this encounter Progress Notes * Lisa Laurent MD - 12/12/2023 4:21 PM EST STEMI Alert Note Index Event Data Initial Contact Date and Time: 12/12/2023 3:30 PM Hospital to which patient presented: [facility] If Hospital to which patient presented= [facility]: ED via EMS Medical History (prior to current presentation) Atrial Fibrillation/ Atrial Flutter: No Hypertension: Yes Dyslipidemia: No Angina: No Myocardial Infarction: No Diabetes Mellitus: Yes Prior Percutaneous Coronary Intervention: No Prior Coronary Artery Bypass Graft: No Cerebrovascular Disease: No Tobacco Use: Unknown Presenting Symptoms per OSH/EMS Time of continuous symptom onset to ED presentation Estimated total time from symptom onset to treatment (PCI or thrombolytic) >4 hours: No Chest Pain: Yes Shortness of breath: No Syncope: No Cardiac Arrest: No Other: Diaphoresis ECG EKG Interpretation(choose all that apply): Inferior ST elevation and Anterior ST depressions Meets Strict STEMI ECG Criteria New ST elevation of >1 mm in other contiguous leads including limb leads: Yes Exam at Presentation CHELSEA Risk Score for STEMI Treatment Beta Marvin (Any): None Asprin (Any): Yes Adjunctive PLT Inhibitor: Clopidogrel 300mg Thrombolytic: TNK(tenecteplase) Thrombolytic Dose: Dose Unknown Plan STEMI Alert called: Yes Welt Wheeler Activated by: Call Center Agent Initial Disposition: Admit Welt Wheeler Please see separate note for further details. documented in this encounter Plan of Treatment Upcoming Encounters Date Type Department Care Team (Late st Contact Info) Description 07/02/2024 3:00 PM EDT Office [place] [address] Leo Flor MD [facility] [place] [address] 08/12/2024 3:40 PM EDT Office [place] [address] Siva Harrison MD [facility] [place] [address] 09/18/2024 1:00 PM EST [place] [address] Jj Davis MD [facility] [address] documented as of this encounter Visit Diagnoses Not on filedocumented in this encounter Care Teams Fabricating Machine Operator Relationship Specialty Start Date End Date Leo Alegre DO [address] [place] [id number] PCP - General Family Medicine 03/03/21 documented as of this encounter
--- OUTSIDE RECORDS SUMMARY | 2024-06-18 14:58 | XMS_ITS | Encounter Summary ---
Author Organization [facility] Address [facility] [place] [address] Care Team Providers Care Pad Extraction Tender Name Role Phone Leo Alegre DO Primary Care Provider +1- [phone] Encounter Details Date Type Department Care Team (Late st Contact Info) Description 12/12/2023 Telephone Cardiology [facility] [place] [phone] Lisa Laurent MD [facility] [place] [address] Social History Tobacco Use Types Packs/Day Years Used Date Smoking Tobacco: Former Cigarettes 2.8 30 1 973 - 2002 Smokeless Tobacco: Never Alcohol Use Standard Drinks/Week Comments Not Currently 0 (1 standard drink = 0.6 oz pur e alcohol) [facility] Utilities Answer Date Recorded In the past 12 months has [employer], gas, oil, or water [employer] threatened to shut off services in your [...] to sleep or slept in a senior care (including now)? No 12/13/2023 DH IPV Inpatient [...] encounter Miscellaneous Notes * Telephone Encounter - Lisa Laurent MD - 12/12/2023 3:12 PM EST Images from the original note were not included. 12/12/2023 Martín Mitchell Initial Contact Date: 12/12/2023 Initial contact time: 3:12 PM Referring Provider: Prasanth Joiner MD Patient Location: [place] Past Medical History: Hypertension NIDDM II COPD Nephrolithiasis Obesity (80-90 kg) Marijuana smoker Presenting Symptoms per OSH: Martín Mitchell is a 63 y.o. gentleman who presents with episodic chest pain since yesterday evening.Woke up pain free this morning. Presented to his outpatient clinic for depression assessment. At that time developed recurrent pressure with diaphoresis again. Got aspirin & nitro with some improvement, 5/10 > 3/10. No current diaphoresis or shortness of breath. BP on arrival at 130/80. HDS, HR 77, BP 156/72, O2 reasonable ORA. No labs back as yet. Past cardiac studies: None Plan: Accept in transfer as inferior STEMI. Rec heparin gtt, aspirin loading (if not done already), plavix 300 mg QD, TNK if no bleeding contraindications. Admit direct to laboratory chemist. Above recommendations were based on my discussion with the outside provider; I have not personally interviewed or examined this patient. Advised to call the transfer center back with any changes in the patient condition. Lisa Laurent MD Cardiology PGY 6 12/12/2023 documented in this encounter Plan of Treatment Upcoming Encounters Date Type Department Care Team (Late st Contact Info) Description 07/02/2024 3:00 PM EDT Office Visit Endocrinology at [place] [phone] Leo Flor MD [facility] [place] [address] 08/12/2024 3:40 PM EDT Office Visit Pulmonology at [place] [phone] Siva Harrison MD [facility] [place] [address] 09/18/2024 1:00 PM EST Office Visit Cardiology at [place] [phone] Jj Davis MD [facility] [place] [address] documented as of this encounter Visit Diagnoses Not on filedocumented in this encounter Care Teams Pad Extraction Tender Relationship Specialty Start Date End Date Leo Alegre DO [address] [place] [address] PCP - General Family Medicine 03/03/21 documented as of this encounter
--- OUTSIDE RECORDS SUMMARY | 2024-06-18 14:58 | XMS_ITS | Encounter Summary ---
[place] [address] Care Team Providers Care Executive Wellness Programs Director Name Role Phone Leo Alegre DO Primary Care Provider +1- [phone] Reason for Referral * Consultation (Routine) - Closed Specialty Diagnoses / Procedures Referred By Contac t Referred To Contact Pulmonology Diagnoses Pulmonary emphysema, unspecified emphysema type Leo Alegre DO [address] [place] [address] [facility] Pulmonology [address] [place] [phone] Referral ID Status Reason Start Date Expiration Date V isits Requested Visits Authorized [id number] Closed Consult, Test & Treat PCP Updated and/or Approved 07/31/2023 07/30/2024 6 6 Encounter Details Date Type Department Care Team (Late st Contact Info) Description 07/31/2023 Transcribe Orders eDH Incoming Referrals [phone] Leo Alegre DO [address] [place] [address] Pulmonary emphysema, unspecified emphysema type Social History Tobacco Use Types Packs/Day Years Used Date Smoking Tobacco: Never Smokeless Tobacco: Never Sex and Gender Information Value Date Recorded Sex Assigned at Not on file Gender Identity Not on file Sexual Orientation Not on file documented as of this encounter Plan of Treatment Upcoming Encounters Date Type Department Care Team (Late st Contact Info) Description 07/02/2024 3:00 PM EDT Office Visit Endocrinology at [address] Leo Flor MD [facility] [place] [address] 08/12/2024 3:40 PM EDT [place] [phone] Siva Harrison MD [facility] [place] [address] 09/18/2024 1:00 PM EST Office Visit Cardiology at [place] [phone] Jj Davis MD [facility] [place] [address] Scheduled Referrals Name Type Priority Associated Diagnoses Orde r Schedule Referral to Pulmonology Outpatient Referral Routine Pulmonary emphysema, unspecified emphysema type Ordered: 07/31/2023 documented as of this encounter Visit Diagnoses Diagnosis Pulmonary emphysema, unspecified emphysema type documented in this encounter Care Teams Executive Wellness Programs Director Relationship Specialty Start Date End Date Leo Alegre DO [address] [place] [address] PCP - General Family Medicine 03/03/21 documented as of this encounter
--- OUTSIDE RECORDS SUMMARY | 2024-06-18 14:58 | XMS_ITS | Encounter Summary ---
Author Organization [facility] [place] [address] Care Team Providers Care Computer Programmer Name Role Phone Leo Alegre DO Primary Care Provider [phone] Reason for Visit * Auth/Cert (Routine) Specialty Diagnoses / Procedures Referred By Contac t Referred To Contact Diagnoses STEMI (ST elevation myocardial infarction) STEMI Procedures CORONARY ANGIOGRAPHY Sergey Nava MD [facility] [place] [place] [address] [facility] Referral ID Status Reason Start Date Expiration Date Visits Re quested Visits Authorized [id number] 1 1 Encounter Details Date Type Department Care Team (Late st Contact Info) Description 12/12/2023 5:05 PM EST - 12/12/2023 5:06 PM EST [place] [address] Sergey Nava MD [facility] [place] [address] CORONARY ANGIOGRAPHY Social History Tobacco Use Types Packs/Day Years Used Date Smoking Tobacco: Former Cigarettes 2.8 30 1 973 - 2002 Smokeless Tobacco: Never Alcohol Use Standard Drinks/Week Comments Not Currently 0 (1 standard drink = 0.6 oz pur e alcohol) [facility] Utilities Answer Date Recorded In the past 12 months has [employer] electric, gas, oil, or water company threatened [...] on file documented as of this encounter Discharge Summaries * Abram Wei [...] nephrolithiasis who presented as a transfer from [facility] for inferior STEMI, now s/p PCI to X, with course complicated by DKA. Follow-up Recommendations for Providers: - Referral to Cardiology at [facility] placed. Requires follow-up TTE in 3 months [...] take 10/15/20U depending on size of meal. [facility] endocrinology referral placed at time of discharge. Also referral placed to [facility] nurses aide. - Ensure patient remains on DAPT for 12 months. Plavix can be discontinued at 12 months depending on future intervention. Discharge Diagnoses (Hospital Problems) and Secondary Diagnoses (Chronic Problems): Active Hospital Problems Diagnosis STEMI (ST elevation myocardial infarction) Resolved Hospital Problems No resolved problems to display. Procedures: TTE [facility] History of Presentation (per 12/12/2023 Admission H&P): Martín Alvarado is a 63 y.o. male w/ PMH HTN, NIDDM2, COPD, obesity, and nephrolithiasis who presentsas a transfer from [facility] for inferior STEMI. Patient states he [...] and received TNK. He was transferred to [facility] for catheterization. Per Dr. Carmen's Op Note: [...] 1253 12/15/23 0909 12/15/23 0403 12/14/23 0009 12/13/236 12/12/23 2214 12/12/231999 NA 133* 132* 132* [...] who have questions please contact the health healthcare advisory services manager that requested your imaging first. Electronically signed by: Maral Camejo MD, [facility] ([phone]), at 12/13/2023 9:37 AM TTE: -Left ventricular systolic function is mildly reduced. The left ventricular ejection fraction is 41% by Wells's biplane. There is akinesis of the inferolateral and anterolateral segments. -The right ventricle is of normal size. Right ventricular systolic function is normal. Pulmonary artery hypertension could not be assessed due to inadequate tricuspid regurgitation jet. -There is no significant valve disease. -Other than a zfsaj-tn-qvlx study performed on yesterday's date with similar [...] were hospitalized - You were admitted to [facility] for a STEMI (heart attack) and required [...] have placed a referral to see a [facility] Coach Cleaner, as well as a nurses aide, and to start Cardiac Rehabilitation. It is [...] the Kaylee. Follow-up with your PCP and conveyor line bakery worker to further work on titrating insulin. - [...] Time Provider Department Center 02/12/2024 12:20 PM [facility] CT 1 [facility] RAD CT [facility] Rad 02/12/2024 1:40 PM Siva Harrison MD [facility] PULM [facility] Please call your PCP on Sunday to request a follow-up visit of this hospitalization. The Cardiology clinic will contact you to schedule an initial visit. If you have not heard from them in the next week, please call [facility] and request the Cardiology clinic to discuss follow-up. Your Inpatient Medical Team at [facility] Name(s) of your inpatient provider(s): Abram Wei MD, Davy Schwab MD Your Primary Care Provider: Leo Alegre DO [phone] For questions regarding this document or issues relating to this hospitalization on the Cardiology Service, please contact your inpatient physician through the [facility] Field Appraiser . Issues after hours and on weekends will be handled by the meat and seafood manager on-call. General Instructions None Future Appointments and Orders Future Appointments and Orders Future Appointments Provider Department Dept Phone 02/12/2024 12:20 PM [facility] CT [address] CT Scan at [facility] Arrive at: 3 RADIOLOGY [phone] 02/12/2024 1:40 PM Siva Harrison MD Pulmonology at [facility] Arrive at: Aerodynamics Teacher Area [phone] Future Orders Complete By Expires Referral to Cardiac Rehab [[id number] Custom] As directed Process Instructions: If no progress note charted, please enter Clinical details in comments. Scheduling Instructions: Questions: My question or request is: STEMI, PCI- cardiac rehab at [facility] Referral to Cardiology [REF12 Custom] As directed Process Instructions: If no progress note charted, please enter Clinical details in comments. Scheduling Instructions: Questions: My question or request is: 63M, STEMI s/p PCI to LCX, has additional unrevascularized disease. Establishing care. Would consider [facility] Referral to Endocrinology [REF22 Custom] As directed Process Instructions: If no progress note charted, please enter Clinical details in comments. Scheduling Instructions: Questions: My question or request is: 63 yo hospitalized for [place] course complicated by DKA, significant insulinrequirements as inpatient. Requires close follow-up. Specialist Level of Involvement: Specialist Management Is patient being referred for thyroid nodule?: No Provider Contact Information: Leo Alegre, [address] [facility] [address] Discharge References/Attachments: Discharge References/Attachments Diabetes Diet Meal Planning: General Info (Bulgarian) How to Prevent a Second Heart Attack: Video (Bulgarian) After a Heart Attack: Taking an Aspirin or Antiplatelet: Video (Bulgarian) Diabetic Ketoacidosis (DKA) (Bulgarian) PCI (Percutaneous Coronary Intervention): Post-op (Bulgarian) Cardiac Rehabilitation (Bulgarian) documented in this encounter Discharge Instructions * Patient Instructions* Davy Schwab MD - 12/15/2023 6:00 PM EST Instructions on Discharge to Home Why you were hospitalized - You were admitted to [facility] for a STEMI (heart attack) and required [...] have placed a referral to see a [facility] Coach Cleaner, as well as a nurses aide, and to start Cardiac Rehabilitation. It is [...] the Kaylee. Follow-up with your PCP and conveyor line bakery worker to further work on titrating insulin. - [...] Time Provider Department Center 02/12/2024 12:20 PM [facility] CT 1 [facility] RAD CT [facility] Rad 02/12/2024 1:40 PM Siva Harrison MD [facility] Please call your PCP on Sunday to request a follow-up visit of this hospitalization. The Cardiology clinic will contact you to schedule an initial visit. If you have not heard from them in the next week, please call [facility] and request the Cardiology clinic to discuss follow-up. Your Inpatient Medical Team at [facility] Name(s) of your inpatient provider(s): Abram Wei MD, Davy Schwab MD Your Primary Care Provider: Leo Alegre DO [phone] For questions regarding this document or issues relating to this hospitalization on the Cardiology Service, please contact your inpatient physician through the [facility] Field Appraiser . Issues after hours and on weekends will be handled by the meat and seafood manager on-call. * Attachments The following attachments cannot be sent through Care Everywhere. * Diabetes Diet Meal Planning: General Info (Bulgarian) * How to Prevent a Second Heart Attack: Video (Bulgarian) * After a Heart Attack: Taking an Aspirin or Antiplatelet: Video (Bulgarian) * Diabetic Ketoacidosis (DKA) (Bulgarian) * PCI (Percutaneous Coronary Intervention): Post-op (Bulgarian) * Cardiac Rehabilitation (Bulgarian) documented in this encounter Medications at Time [...] Plan: Continue nocturnal BIPAP. KIMBERLY MCKEON RCP LBA * Abram Wei MD - 12/15/2023 8:18 AM EST Images from the original note were not included. Inpatient Cardiology Progress Note Patient information: Name: Martín Alvarado : 1960 PCP: Leo Alegre DO PCP phone number: [phone] Date of Admission: 12/12/2023 ( Hospital Day 3 days ) Service: Cardiology S1 Responsible Attending:Abram Wei MD ID: Martín Alvarado is a 63 y.o. male with PMH notable for HTN, NIDDM2, COPD, BP, obesity, and nephrolithiasis who presented as a transfer from [facility] for inferior STEMI, now s/p PCI to [facility], with course c/b DKA. 24 Hour Events: [...] 11.35* 12.55* -- 17.78* Recent Labs 12/15/23 04012/14/23215412/14/23 180 NA 132* 132* 130* K 3.5 3.6 3.8 CL 94* 96* 95* CO2 24 23 21* BUN 26* 28* 26* CREATININE 0.88 0.91 0.83 GLUCOSE 121 148 246* ANIONGAP 14 13 14 Recent Labs 12/15/23 0403 12/14/23 21512/14/23 1802 12/14/23 0009 12/13/23 1956 12/13/233312/12/231999 CALCIUM 9.2 8.9 8.9 < > 9.0 < > 8.1* MAGNESIUM -- -- -- -- 0.90 -- 0.66* PHOS -- -- -- -- 4.1 -- 4.8* < > = values in this interval not displayed. Recent Labs 02/01/24 0034 BILITOT 1.3 BILIDIR 0.2 ALBUMIN 3.9 ALKPHOS 55 ALT 109* AST 671* Recent Labs 12/13/23 0034 TSH 0.32 Recent Labs 12/13/23 0034 HA1C 10.0* BOHB 2.09 -> 0.18 -> [...] no significant valve disease. -Other than a nplge-xd-qfof study performed on yesterday's date with similar [...] who have questions please contact the health healthcare advisory services manager that requested your imaging first. Electronically signed by: Maral Camejo MD, [facility] ([phone]), at 12/13/2023 9:37 AM Medications: losartan 25 mg Oral Daily ### [...] chloride ER insulin regular human Stopped (12/14/23 6639) Assessment: Martín Alvarado is a 63 y.o. male with PMH notable for HTN, NIDDM2, COPD, BP, obesity, and nephrolithiasis who presented as a transfer from [facility] for inferior STEMI, now s/p PCI [...] MD PGY-3, Internal Medicine Cardiology S1, Pager #[phone] 12/15/23 Cardiology Staff - Progress Note This patient was seen and examined on morning rounds with the inpatient S1 team. I agree with the findings and plan of care per Ryan Salas (medical housestaff) which we discussed on rounds. Pleaserefer to his note above for details. * Sylvester Tobar SOCK MENDER - 12/14/2023 11:34 PM EST Patient was evaluated on nasal cannula and placed on NIV for nocturnal use. Patient is tolerating the current settings. I will continue to monitor. 12/14/23 5405 Non Invasive Ventilation Data NIV Device EV300 [...] PT Note Pt up walking with Cardiac workplace rehabilitation officer. Pt will benefit from continued ambulation with nursing and mobility techs. Will place pt on walk list for mobility techs. No formal PT needs at this time. Tataina Zazueta, PT Pager [phone] * Janina Moon APRN - 12/14/2023 7:47 [...] CHO count level 2 Janina Moon APRN [facility] Endocrinology Diabetes Management Pager [phone] 20 minutes of this 35 minute visit [...] PCP: Leo Alegre DO PCP phone number: [phone] Date of Admission: 12/12/2023 ( Hospital Day 2 days ) Service: Cardiology S1 Responsible Attending:Jon Root MD ID: Martín Alvarado is a 63 y.o. male with PMH notable for HTN, NIDDM2, COPD, BP, obesity, and nephrolithiasis who presented as a transfer from [facility] for inferior STEMI, now s/p PCI to [facility], with course c/b DKA. 24 Hour Events: [...] Neuro: Nonfocal. Labs/Microbiology: Recent Labs 12/13/23 0156 12/13/233312/12/23 1830 WBC 16.2* Clotted 21.6* HGB 14.2 Clotted 14.2 HCT 41.7 Clotted 41.4 PLATELET 272 Clotted 331 NEUTROABS 12.55* -- 17.78* Recent Labs 12/14/23 0959 12/14/2333512/14/23 0009 12/13/231955 NA 132* 133* 134* 133* [...] 55 ALT 109* AST 671* Recent Labs 12/13/23 0034 TSH 0.32 Recent Labs 12/13/23 0034 HA1C 10.0* BOHB 2.09 -> 0.18 -> [...] no significant valve disease. -Other than a csepo-un-uyko study performed on yesterday's date with similar [...] who have questions please contact the health healthcare advisory services manager that requested your imaging first. Electronically signed by: Maral Camejo MD, [facility] ([phone]), at 12/13/2023 9:37 AM Medications: losartan 25 mg Oral Daily ### [...] ER insulin regular human 5.37 Units/hr (12/14/23 0932) Assessment: Martín Alvarado is a 63 y.o. male with PMH notable for HTN, NIDDM2, COPD, BP, obesity, and nephrolithiasis who presented as a transfer from [facility] for inferior STEMI, now s/p PCI [...] MD PGY-3, Internal Medicine Cardiology S1, Pager #[phone] 12/14/23 Cardiology Staff - Progress Note This [...] PCP: Leo Alegre DO PCP phone number: [phone] Date of Admission: 12/12/2023 ( Hospital Day 1 day ) Service: Cardiology S1 Responsible Attending:Frances Eisenberg MD ID: Martín Alvarado is a 63 y.o. male with PMH notable for HTN, NIDDM2, COPD, BP, obesity, and nephrolithiasis who presented as a transfer from [facility] for inferior STEMI, now s/p PCI to X, with course c/b DKA. 24 Hour Events: - Admitted overnight for STEMI. See H&P. - S/p PCI to LCX. Complex 3-vessel disease noted. LVEDP 31mmHg; started diuresis. - Insulin gtt started for DKA noted upon admission. Subjective: - Seen at time of downgrade from CVCC - Feeling well; CP has resolved - [...] Labs 12/13/23 0750 12/13/23 0400 12/13/23 0034 12/12/23 2000 CALCIUM 8.4* 8.3* 8.1* 8.1* MAGNESIUM -- -- -- 0.66* PHOS -- -- -- 4.8* Recent Labs 12/13/23 003 BILITOT 1.3 BILIDIR 0.2 ALBUMIN 3.9 ALKPHOS 55 ALT 109* AST 671* Recent Labs 12/13/23 003 TSH 0.32 Recent Labs 12/13/2333 HA1C 10.0* [...] no significant valve disease. -Other than a catwi-yy-kpkk study performed on yesterday's date with similar [...] who have questions please contact the health healthcare advisory services manager that requested your imaging first. Electronically signed by: Maral Camejo MD, [facility] ([phone]), at 12/13/2023 9:37 AM Medications: tiotropium bromide 2 puff Inhalation Daily [...] nephrolithiasis who presented as a transfer from [facility] for inferior STEMI, now s/p PCI [...] ejection fraction #HTN #Metabolic syndrome - See [facility] report - Anticipate CTS evaluation - [...] MD PGY-3, Internal Medicine Cardiology S1, Pager #[phone] 12/13/23 documented in this encounter H&P Notes * Dorys Cardoza MD - 12/13/2023 12:00 AM EST Images from the original note were not included. Cardiology ICU H&P Patient info: Name: Martín Alvarado : 1960 PCP: Leo Alegre DO PCP phone number: [phone] Date of Admission: 12/12/2023 ( Hospital Day 0 days ) Attending:Frances Eisenberg MD ID: Martín Alvarado is a 63 y.o. male w/ PMH HTN, NIDDM2, COPD, obesity, and nephrolithiasis who presents as a transfer from [facility] for inferior STEMI. Patient states he [...] and received TNK. He was transferred to [facility] for catheterization. Per Dr. Carmen's Op Note: [...] in the last 7068 hours. Invalid input(s): [id number] Recent Labs 12/12/23220512/12/23 2114 12/12/23201112/12/23 1923 12/12/23 [...] OR potassium chloride ER Assessment & Plan: aMrtín Alvarado is a 63 y.o. male w/ PMH HTN, NIDDM2, COPD, obesity, and nephrolithiasis who presentsas a transfer from [facility] for STEMI. Findings notable for 100% proximal Lcx lesion now s/p successful PCI and complex 3VD. Will continue medical management for now and continue to explore options for revascularization. In the cork slabs sawyer, patient became hypotensive with pressor requirement but [...] disease. Patient in shock acutely in the cork slabs sawyer requiring high dose epi and norepi, able [...] Frances Eisenberg MD Cardiovascular Medicine Personal Pager [phone] 12/13/2023 10:47 AM documented in this encounter [...] in the outpatient cardiac rehabilitation program at [facility] in [facility] was discussed. Patient agrees to a referral [...] Type: *No Product type* / Secondary Insurance: [employer] MANAGED MEDICAID Prescription Coverage: Yes This plan [...] Implemented as Appropriate) * Consult Note - Melanie Xavier Vania, SOCK MENDER - 12/13/2023 3:10 PM EST Respiratory Care [...] disease. Patient in shock acutely in the cork slabs sawyer requiring high dose epi and norepi, able [...] Medications: Laboratory: No results found for: PHART, NYF0TVV, PO2ART, JZU0OEG, BEART Diagnostic Studies: Last Chest X-ray: Results [...] who have questions please contact the health healthcare advisory services manager that requested your imaging first. Electronically signed by: Maral Camejo MD, [facility] ([phone]), at 12/13/2023 9:37 AM Current airway: Assessment: Patient reports use of [...] Admitted From: Transfer from another hospital Location: [facility] Reason for Hospitalization: chest pain, sweating Covid [...] surrogate would be surrogate decision maker per [place] surrogate decision making law. (Only good for 180 days) Any patient receiving care in [place] must abide by [place] law. The hierarchy for surrogate decision making [...] (i) The agent with financial power of patent attorney or a conservator appointed in accordance with RSA 464-A. (j) The guardian of the patient???s estate. Advance Care Planning: Attempt Cardiopulmonary Resuscitation - Inpatient <no information> -Advanced Directive: No, need to discuss (Referral sent to [facility] - Ham Curer) Current Coping/Education/Information Needs: None noted Current Functional [...] In the past 12 months has the [employer], gas, oil, or water [employer] threatened to shut off services in your [...] Current DME: none Home Address confirmed as: [address] [place] [id number] Social & Family Supports: All names listed below confirmed with patient as current and correct Extended Emergency Contact Information Primary Emergency Contact: [place] Address: [address] [place] [address] Mobile Relation: Friend Current Care Provided by: [...] Type: *No Product type* / Secondary Insurance: [employer] HE[employer] PLANS MANAGED MEDICAID ONLY if patient has Medicare A&B - Does this patient have secondary insurance?: Yes ; Prescription Coverage: Yes Preferred Pharmacy: [facility] - [address] [facility] [address] [place] Status: Patient is a : No Primary Care Provider confirmed: Leo Alegre DO [phone] Patient/Caregiver Goals of Treatment: Potential Needs for [...] management and 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 Diabetes History: Martín Alvarado has [...] care for your patient Janina Moon APRN [facility] Endocrinology Diabetes Management Pager [phone] 70 minutes of this 80 minute visit [...] right radial site CDI. Pulses palpable. In cork slabs sawyer, 1 stent to LCX, and started on [...] Operative Note Patient Name: Martín Alvarado : [id number] MR#: [id number] Case Date: 12/12/2023 Surgeon: Surgeon(s) and Role: [...] 3:00 PM EDT Office [place] [address] Leo Flor MD [facility] [place] [address] 08/12/2024 3:40 PM EDT Office Visit Pulmonology at [address] Siva Harrison MD [facility] [place] [address] 09/18/2024 1:00 PM EST Office [place] [address] Jj Davis MD [facility] [place] [address] Scheduled Orders Name Type Priority Associated Diagnoses [...] Glucose, POC 91 65 - 199 mg/dL [facility] Comment: Supplemental ranges: <140 mg/dL before meals <180 mg/dL all other times of the day Blood 12/16/2023 3:13 PM EST 12/16/2023 3:13 PM EST Abram Wei MD POINT OF CARE TEST ORDERABLES Performing Organization Address City/[facility]/ZIP Co de Phone Number [facility] [place] [address] * (ABNORMAL) POCT Glucose (12/16/2023 11:36 AM EST) Glucose, POC 225(H) 65 - 199 mg/dL [facility] Comment: Supplemental ranges: <140 mg/dL before meals <180 mg/dL all other times of the day Blood 12/16/2023 11:3 6 AM EST 12/16/2023 11:36 AM EST Abram Wei MD POINT OF CARE TEST ORDERABLES [facility] [place] [address] * POCT Glucose (12/16/2023 7:18 AM EST) Glucose, POC 179 65 - 199 mg/dL [facility] Comment: Supplemental ranges: <140 mg/dL before meals <180 mg/dL all other times of the day Blood 12/16/2023 7:18 AM EST 12/16/2023 7:18 AM EST Abram Wei MD POINT OF CARE TEST ORDERABLES [facility] [place] [address] * POCT Glucose (12/16/2023 5:02 AM EST) Glucose, POC 109 65 - 199 mg/dL [facility] Comment: Supplemental ranges: <140 mg/dL before meals <180 mg/dL all other times of the day Blood 12/16/2023 5:02 AM EST 12/16/2023 5:02 AM EST Abram Wei MD POINT OF CARE TEST ORDERABLES Performing Organization Address City/[facility] [place] [address] * (ABNORMAL) Differential, Automated (12/16/2023 4:01 AM EST) Pathologist [facility] Neutrophil % 60.2 % [facility] Neutrophil Absolute 8.78(H) 1.70 - 6.10 x10(3)/mc L [facility] Lymph % 27.2 % [facility] Lymphocytes Abs 4.0(H) 0.9 - 3.2 x10(3)/mc L [facility] Monocyte % 11.8 % [facility] Monocyte Abs 1.7(H) 0.3 - 0.9 x10(3)/mc L [facility] Eos % 0.1 % [facility] Eosinophils Abs 0.0 0.0 - 0.4 x10(3)/mc L [facility] Basophil % 0.3 % [facility] Baso Absolute 0.0 0.0 - 0.1 x10(3)/mc L [facility] Immature Gran % 0.40 % [facility] Comment: Immature granulocytes(IG's)percentage and absolute count will include metamyelocytes, myelocytes, and promyelocytes. Blood smears from CBCs yielding IG's will be scanned manually for concordance. If this scan disagrees with the automated IG or if promyelocytes are noted, a manual differential will be performed. Immature Gran Absolute 0.06(H) 0.00 - 0.04 x10(3)/mc L [facility] Blood 12/16/2023 4:01 AM EST 12/16/2023 4:12 AM EST Narrative Resulting Agency Comment Spec In Lab John Huitron MD HEMATOLOGY ORDERABLE S Performing Organization Address City/[facility] Co de Phone Number [facility] [place] [address] * (ABNORMAL) Hemogram (12/16/2023 4:01 AM EST) White Blood Cell 14.6(H) 4.0 - 9.5 x10(3)/mc L [facility] Red Blood Cell 4.78 4.58 - 5.54 x10(6)/mc L [facility] Hemoglobin 13.9 13.7 - 16.5 g/dL [facility] Hematocrit 41.0 40.5 - 48.5 % [facility] Mean Cell Volume 85.8 82.9 - 93.1 fL [facility] Mean Cell Hemoglobin 29.1 27.5 - 32.1 pg [facility] Mean Cell Hemoglobin Concentration 33.9 32.0 - 35.7 g/dL [facility] Platelet 256 145 - 357 x10(3)/mc L [facility] RDW Standard Deviation 38.1 36.0 - 45.0 fL [facility] RDW coefficient of variation 12.1 11.4 - 13.8 % [facility] Mean Platelet Volume 10.4 7.6 - 12.9 fL [facility] NRBC% auto 0.0 % [facility] NRBC Absolute 0.000 0.000 - 0.000 x10(3)/mc L [facility] Blood 12/16/2023 4:01 AM EST 12/16/2023 4:12 AM EST Narrative Resulting Agency Comment Spec In Lab John Huitron MD HEMATOLOGY ORDERABLE S Performing Organization Address City/[facility]/ZIP Co de Phone Number [facility] [place] [address] * (ABNORMAL) Basic Metabolic Panel (non-fasting) (12/16/2023 4:01 AM EST) Glucose 110 65 - 199 mg/dL [facility] Comment:Diabetes: >=200 mg/d L plus symptoms Blood Urea Nitrogen 26(H) 10 - 20 mg/dL [facility] Creatinine 0.85 0.80 - 1.50 mg/dL [facility] Sodium 133(L) 135 - 145 mmol/L [facility] Potassium 3.4(L) 3.5 - 5.0 mmol/L [facility] Comment: Please note: ??Patients with WBC >100,000 may have falsely elevated Potassium levels. ??For accurate Potassium quantification in these patients send serum separator tube (gold top) for subsequent determinations. ??Contact the Clinical Chemistry Laboratory if there are any questions. Chloride 97(L) 98 - 107 mmol/L [facility] Carbon Dioxide 25 22 - 31 mmol/L [facility] Anion Gap 11 5 - 15 mmol/L [facility] Calcium 8.9 8.5 - 10.5 mg/dL [facility] Est Glomerular Filtration Rate 99 >=60 mL/min/1. 73 m?? [facility] Comment: This patient's estimated GFR [...] Lab Abram Wei MD CHEMISTRY ORDERABLE S [facility] [place] [address] * POCT Glucose (12/16/2023 12:25 AM EST) Glucose, POC 188 65 - 199 mg/dL [facility] Comment: Supplemental ranges: <140 mg/dL before meals <180 mg/dL all other times of the day Blood 12/16/2023 12:2 5 AM EST 12/16/2023 12:25 AM EST Abram Wei MD POINT OF CARE TEST ORDERABLES Performing Organization Address City/[facility]/ZIP Co de Phone Number [facility] [place] [address] * POCT Glucose (12/15/2023 7:52 PM EST) Glucose, POC 151 65 - 199 mg/dL [facility] Comment: Supplemental ranges: <140 mg/dL before meals <180 mg/dL all other times of the day Blood 12/15/2023 7:52 PM EST 12/15/2023 7:52 PM EST Abram Wei MD POINT OF CARE TEST ORDERABLES Performing Organization Address City/[facility]/ZIP Co de Phone Number [facility] [place] [address] * POCT Glucose (12/15/2023 4:47 PM EST) Glucose, POC 188 65 - 199 mg/dL [facility] Comment: Supplemental ranges: <140 mg/dL before meals <180 mg/dL all other times of the day Blood 12/15/2023 4:47 PM EST 12/15/2023 4:47 PM EST Narrative Authorizing Provider Result Erwin Wei MD POINT OF CARE TEST ORDERABLES Performing Organization Address City/[facility] Co de Phone Number [facility] [place] [address] * Beta Hydroxybutyrate (12/15/2023 12:53 PM EST) Beta-hydroxybuturat e 0.19 0.00 - 0.30 mmol/L [facility] Comment: This test has not been cleared by the [place] FDA. Performance characteristics of this test were determined by [facility] in accordance with CLIA requirements. This laboratory is qualified under CLIA to perform high-complexity testing. Blood 12/15/2023 12:5 3 PM EST 12/15/2023 1:10 PM EST Narrative Resulting Agency Comment Spec In Lab Frances Eisenberg MD CHEMISTRY ORDERABLES [facility] [place] [address] * (ABNORMAL) Basic Metabolic Panel (non-fasting) (12/15/2023 12:53 PM EST) Glucose 166 65 - 199 mg/dL [facility] Comment:Diabetes: >=200 mg/d L plus symptoms Blood Urea Nitrogen 24(H) 10 - 20 mg/dL [facility] Creatinine 0.84 0.80 - 1.50 mg/dL [facility] Sodium 132(L) 135 - 145 mmol/L [facility] Potassium 3.6 3.5 - 5.0 mmol/L [facility] Comment: Please note: ??Patients with WBC >100,000 may have falsely elevated Potassium levels. ??For accurate Potassium quantification in these patients send serum separator tube (gold top) for subsequent determinations. ??Contact the Clinical Chemistry Laboratory if there are any questions. Chloride 94(L) 98 - 107 mmol/L [facility] Carbon Dioxide 25 22 - 31 mmol/L [facility] Anion Gap 13 5 - 15 mmol/L [facility] Calcium 9.1 8.5 - 10.5 mg/dL [facility] Est Glomerular Filtration Rate 99 >=60 mL/min/1. 73 m?? [facility] Comment: This patient's estimated GFR [...] Eisenberg MD CHEMISTRY ORDERABLES Performing Organization Address [facility] Co de Phone Number [facility] [place] [address] * POCT Glucose (12/15/2023 11:39 AM EST) Glucose, POC 174 65 - 199 mg/dL [facility] Comment: Supplemental ranges: <140 mg/dL before meals <180 mg/dL all other times of the day Blood 12/15/2023 11:3 9 AM EST 12/15/2023 11:39 AM EST Abram Wei MD POINT OF CARE TEST ORDERABLES Performing Organization Address [facility] Phone Number [facility] [place] [address] * (ABNORMAL) Beta Hydroxybutyrate (12/15/2023 9:09 AM EST) Beta-hydroxybuturat e 0.42(H) 0.00 - 0.30 mmol/L [facility] Comment: This test has not been cleared by the [place] FDA. Performance characteristics of this test were determined by [facility] in accordance with CLIA requirements. This laboratory is qualified under CLIA to perform high-complexity testing. Blood 12/15/2023 9:09 AM EST 12/15/2023 9:15 AM EST Narrative Resulting Agency Comment Spec In Lab Frances Eisenberg MD CHEMISTRY ORDERABLES Performing Organization Address [facility] de Phone Number [facility] [place] [address] * (ABNORMAL) Basic Metabolic Panel (non-fasting) (12/15/2023 9:09 AM EST) Glucose 283(H) 65 - 199 mg/dL [facility] Comment:Diabetes: >=200 mg/d L plus symptoms Blood Urea Nitrogen 26(H) 10 - 20 mg/dL [facility] Creatinine 0.78(L) 0.80 - 1.50 mg/dL [facility] Sodium 132(L) 135 - 145 mmol/L [facility] Potassium 3.4(L) 3.5 - 5.0 mmol/L [facility] Comment: Please note: ??Patients with WBC >100,000 may have falsely elevated Potassium levels. ??For accurate Potassium quantification in these patients send serum separator tube (gold top) for subsequent determinations. ??Contact the Clinical Chemistry Laboratory if there are any questions. Chloride 94(L) 98 - 107 mmol/L [facility] Carbon Dioxide 24 22 - 31 mmol/L [facility] Anion Gap 14 5 - 15 mmol/L [facility] Calcium 9.1 8.5 - 10.5 mg/dL [facility] Est Glomerular Filtration Rate 101 >=60 mL/min/1. 73 m?? [facility] Comment: This patient's estimated GFR [...] In Lab Frances Eisenberg MD CHEMISTRY ORDERABLES [facility] [place] [address] * POCT Glucose (12/15/2023 7:15 AM EST) Glucose, POC 133 65 - 199 mg/dL [facility] Comment: Supplemental ranges: <140 mg/dL before meals <180 mg/dL all other times of the day Blood 12/15/2023 7:15 AM EST 12/15/2023 7:15 AM EST Abram Wei MD POINT OF CARE TEST ORDERABLES Performing Organization Address [facility] Co de Phone Number [facility] [place] [address] * Magnesium (12/15/2023 4:03 AM EST) Pathologist [facility] Magnesium 0.89 0.69 - 1.07 mmol/L [facility] Blood Venous Draw / Unknown 12/15/2023 4:03 AM EST 12/15/2023 4:45 AM EST Narrative Resulting Agency Comment Spec In Lab Ryan Salas MD CHEMISTRY ORDERABLES Performing Organization Address [facility] de Phone Number [facility] [place] [address] * Scan, Peripheral Blood (12/15/2023 4:03 AM EST) Pathologist [facility] Plat estimate Normal [facility] RBC Morphology Normal [facility] Blood 12/15/2023 4:03 AM EST 12/15/2023 4:42 AM EST Narrative Resulting Agency Comment Spec In Lab John Huitron MD HEMATOLOGY ORDERABLE S Performing Organization Address [facility] Phone Number [facility] [place] [address] * (ABNORMAL) Differential, Automated (12/15/2023 4:03 AM EST) Neutrophil % 61.9 % [facility] Neutrophil Absolute 11.35(H) 1.70 - 6.10 x10(3)/mc L [facility] Lymph % 26.6 % [facility] Lymphocytes Abs 4.9(H) 0.9 - 3.2 x10(3)/mc L [facility] Monocyte % 10.4 % [facility] Monocyte Abs 1.9(H) 0.3 - 0.9 x10(3)/mc L [facility] Eos % 0.3 % [facility] Eosinophils Abs 0.0 0.0 - 0.4 x10(3)/mc L [facility] Basophil % 0.2 % [facility] Baso Absolute 0.0 0.0 - 0.1 x10(3)/mc L [facility] Immature Gran % 0.60 % [facility] Comment: Immature granulocytes(IG's)percentage and absolute count will include metamyelocytes, myelocytes, and promyelocytes. Blood smears from CBCs yielding IG's will be scanned manually for concordance. If this scan disagrees with the automated IG or if promyelocytes are noted, a manual differential will be performed. Immature Gran Absolute 0.11(H) 0.00 - 0.04 x10(3)/mc L [facility] Blood 12/15/2023 4:03 AM EST 12/15/2023 4:42 AM EST Narrative Resulting Agency Comment Spec In Lab John Huitron MD HEMATOLOGY ORDERABLE S Performing Organization Address City/State/[facility] Co de Phone Number [facility] [place] [address] * (ABNORMAL) Hemogram (12/15/2023 4:03 AM EST) White Blood Cell 18.3(H) 4.0 - 9.5 x10(3)/mc L [facility] Red Blood Cell 5.27 4.58 - 5.54 x10(6)/mc L [facility] Hemoglobin 15.4 13.7 - 16.5 g/dL [facility] Hematocrit 45.6 40.5 - 48.5 % [facility] Mean Cell Volume 86.5 82.9 - 93.1 fL [facility] Mean Cell Hemoglobin 29.2 27.5 - 32.1 pg [facility] Mean Cell Hemoglobin Concentration 33.8 32.0 - 35.7 g/dL [facility] Platelet 253 145 - 357 x10(3)/mc L [facility] RDW Standard Deviation 39.6 36.0 - 45.0 fL [facility] RDW coefficient of variation 12.5 11.4 - 13.8 % [facility] Mean Platelet Volume 10.8 7.6 - 12.9 fL [facility] NRBC% auto 0.0 % [facility] NRBC Absolute 0.000 0.000 - 0.000 x10(3)/mc L [facility] Blood 12/15/2023 4:03 AM EST 12/15/2023 4:42 AM EST Narrative Resulting Agency Comment Spec In Lab John Huitron MD HEMATOLOGY ORDERABLE S [facility] [place] [address] * (ABNORMAL) Basic Metabolic Panel (non-fasting) (12/15/2023 4:03 AM EST) Glucose 121 65 - 199 mg/dL [facility] Comment:Diabetes: >=200 mg/d L plus symptoms Blood Urea Nitrogen 26(H) 10 - 20 mg/dL [facility] Creatinine 0.88 0.80 - 1.50 mg/dL [facility] Sodium 132(L) 135 - 145 mmol/L [facility] Potassium 3.5 3.5 - 5.0 mmol/L [facility] Comment: Please note: ??Patients with WBC >100,000 may have falsely elevated Potassium levels. ??For accurate Potassium quantification in these patients send serum separator tube (gold top) for subsequent determinations. ??Contact the Clinical Chemistry Laboratory if there are any questions. Chloride 94(L) 98 - 107 mmol/L [facility] Carbon Dioxide 24 22 - 31 mmol/L [facility] Anion Gap 14 5 - 15 mmol/L [facility] Calcium 9.2 8.5 - 10.5 mg/dL [facility] Est Glomerular Filtration Rate 98 >=60 mL/min/1. 73 m?? [facility] Comment: This patient's estimated GFR [...] Eisenberg MD CHEMISTRY ORDERABLES Performing Organization Address City/[facility] Co de Phone Number [facility] [place] [address] * (ABNORMAL) Beta Hydroxybutyrate (12/15/2023 4:03 AM EST) Beta-hydroxybuturat e 0.63(H) 0.00 - 0.30 mmol/L [facility] Comment: This test has not been cleared by the [place] FDA. Performance characteristics of this test were determined by [facility] in accordance with CLIA requirements. This laboratory is qualified under CLIA to perform high-complexity testing. Blood 12/15/2023 4:03 AM EST 12/15/2023 4:44 AM EST Narrative Resulting Agency Comment Spec In Lab Frances Eisenberg MD CHEMISTRY ORDERABLES Performing Organization Address [facility] Co de Phone Number [facility] [place] [address] * POCT Glucose (12/15/2023 3:30 AM EST) Glucose, POC 120 65 - 199 mg/dL [facility] Comment: Supplemental ranges: <140 mg/dL before meals <180 mg/dL all other times of the day Blood 12/15/2023 3:30 AM EST 12/15/2023 3:30 AM EST Abram Wei MD POINT OF CARE TEST ORDERABLES Performing Organization Address [facility] Co de Phone Number [facility] [place] [address] * POCT Glucose (12/15/2023 12:09 AM EST) Glucose, POC 114 65 - 199 mg/dL [facility] Comment: Supplemental ranges: <140 mg/dL before meals <180 mg/dL all other times of the day Blood 12/15/2023 12:0 9 AM EST 12/15/2023 12:09 AM EST Narrative Authorizing Provider Result Erwin Wei MD POINT OF CARE TEST ORDERABLES Performing Organization Address City/[facility] Co de Phone Number [facility] [place] [address] * POCT Glucose (12/14/2023 11:21 PM EST) Glucose, POC 109 65 - 199 mg/dL [facility] Comment: Supplemental ranges: <140 mg/dL before meals <180 mg/dL all other times of the day Blood 12/14/2023 11:2 1 PM EST 12/14/2023 11:21 PM EST Narrative Authorizing Provider Result Erwin Wei MD POINT OF CARE TEST ORDERABLES Performing Organization Address [facility] Co de Phone Number [facility] [place] [address] * POCT Glucose (12/14/2023 10:20 PM EST) Glucose, POC 138 65 - 199 mg/dL [facility] Comment: Supplemental ranges: <140 mg/dL before meals <180 mg/dL all other times of the day Blood 12/14/2023 10:2 0 PM EST 12/14/2023 10:20 PM EST Narrative Authorizing Provider Result Erwin Wei MD POINT OF CARE TEST ORDERABLES Performing Organization Address City/[facility] Co de Phone Number [facility] [place] [address] * (ABNORMAL) Beta Hydroxybutyrate (12/14/2023 9:55 PM EST) Beta-hydroxybuturat e 0.33(H) 0.00 - 0.30 mmol/L [facility] Comment: This test has not been cleared by the [place] FDA. Performance characteristics of this test were determined by [facility] in accordance with CLIA requirements. This laboratory is qualified under CLIA to perform high-complexity testing. Blood 12/14/2023 9:55 PM EST 12/14/2023 10:04 PM EST Narrative Resulting Agency Comment Spec In Lab Frances Eisenberg MD CHEMISTRY ORDERABLES [facility] [place] [address] * (ABNORMAL) Basic Metabolic Panel (non-fasting) (12/14/2023 9:55 PM EST) Glucose 148 65 - 199 mg/dL [facility] Comment:Diabetes: >=200 mg/d L plus symptoms Blood Urea Nitrogen 28(H) 10 - 20 mg/dL [facility] Creatinine 0.91 0.80 - 1.50 mg/dL [facility] Sodium 132(L) 135 - 145 mmol/L [facility] Potassium 3.6 3.5 - 5.0 mmol/L [facility] Comment: Please note: ??Patients with WBC >100,000 may have falsely elevated Potassium levels. ??For accurate Potassium quantification in these patients send serum separator tube (gold top) for subsequent determinations. ??Contact the Clinical Chemistry Laboratory if there are any questions. Chloride 96(L) 98 - 107 mmol/L [facility] Carbon Dioxide 23 22 - 31 mmol/L [facility] Anion Gap 13 5 - 15 mmol/L [facility] Calcium 8.9 8.5 - 10.5 mg/dL [facility] Est Glomerular Filtration Rate 96 >=60 mL/min/1. 73 m?? [facility] Comment: This patient's estimated GFR [...] Eisenberg MD CHEMISTRY ORDERABLES Performing Organization Address [facility] Co de Phone Number [facility] [place] [address] * POCT Glucose (12/14/2023 9:15 PM EST) Glucose, POC 167 65 - 199 mg/dL [facility] Comment: Supplemental ranges: <140 mg/dL before meals <180 mg/dL all other times of the day Blood 12/14/2023 9:15 PM EST 12/14/2023 9:15 PM EST Abram Wei MD POINT OF CARE TEST ORDERABLES Performing Organization Address [facility] de Phone Number [facility] [place] [address] * (ABNORMAL) POCT Glucose (12/14/2023 8:23 PM EST) Glucose, POC 222(H) 65 - 199 mg/dL [facility] Comment: Supplemental ranges: <140 mg/dL before meals <180 mg/dL all other times of the day Blood 12/14/2023 8:23 PM EST 12/14/2023 8:23 PM EST Abram Wei MD POINT OF CARE TEST ORDERABLES Performing Organization Address [facility] Co de Phone Number [facility] [place] [address] * (ABNORMAL) POCT Glucose (12/14/2023 7:15 PM EST) Glucose, POC 272(H) 65 - 199 mg/dL [facility] Comment: Supplemental ranges: <140 mg/dL before meals <180 mg/dL all other times of the day Blood 12/14/2023 7:15 PM EST 12/14/2023 7:15 PM EST Abram Wei MD POINT OF CARE TEST ORDERABLES Performing Organization Address City/[facility]/ZIP Co de Phone Number [facility] [place] [address] * (ABNORMAL) Beta Hydroxybutyrate (12/14/2023 6:02 PM EST) Beta-hydroxybuturat e 0.75(H) 0.00 - 0.30 mmol/L [facility] Comment: This test has not been cleared by the [place] FDA. Performance characteristics of this test were determined by [facility] in accordance with CLIA requirements. This laboratory is qualified under CLIA to perform high-complexity testing. Blood 12/14/2023 6:02 PM EST 12/14/2023 6:10 PM EST Narrative Resulting Agency Comment Spec In Lab Frances Eisenberg MD CHEMISTRY ORDERABLES Performing Organization Address City/[facility]/ZIP Co de Phone Number [facility] [place] [address] * (ABNORMAL) Basic Metabolic Panel (non-fasting) (12/14/2023 6:02 PM EST) Glucose 246(H) 65 - 199 mg/dL [facility] Comment:Diabetes: >=200 mg/d L plus symptoms Blood Urea Nitrogen 26(H) 10 - 20 mg/dL [facility] Creatinine 0.83 0.80 - 1.50 mg/dL [facility] Sodium 130(L) 135 - 145 mmol/L [facility] Potassium 3.8 3.5 - 5.0 mmol/L [facility] Comment: Please note: ??Patients with WBC >100,000 may have falsely elevated Potassium levels. ??For accurate Potassium quantification in these patients send serum separator tube (gold top) for subsequent determinations. ??Contact the Clinical Chemistry Laboratory if there are any questions. Chloride 95(L) 98 - 107 mmol/L [facility] Carbon Dioxide 21(L) 22 - 31 mmol/L [facility] Anion Gap 14 5 - 15 mmol/L [facility] Calcium 8.9 8.5 - 10.5 mg/dL [facility] Est Glomerular Filtration Rate 100 >=60 mL/min/1. 73 m?? [facility] Comment: This patient's estimated GFR [...] Eisenberg MD CHEMISTRY ORDERABLES Performing Organization Address [facility] Co de Phone Number [facility] [place] [address] * POCT Glucose (12/14/2023 5:26 PM EST) Glucose, POC 197 65 - 199 mg/dL [facility] Comment: Supplemental ranges: <140 mg/dL before meals <180 mg/dL all other times of the day Blood 12/14/2023 5:26 PM EST 12/14/2023 5:26 PM EST Abram Wei MD POINT OF CARE TEST ORDERABLES Performing Organization Address [facility] Services/[facility] Co de Phone Number [facility] [place] [address] * POCT Glucose (12/14/2023 3:47 PM EST) Glucose, POC 142 65 - 199 mg/dL [facility] Comment: Supplemental ranges: <140 mg/dL before meals <180 mg/dL all other times of the day Blood 12/14/2023 3:47 PM EST 12/14/2023 3:47 PM EST Abram Wei MD POINT OF CARE TEST ORDERABLES Performing Organization Address [facility] Co de Phone Number [facility] [place] [address] * POCT Glucose (12/14/2023 2:35 PM EST) Glucose, POC 140 65 - 199 mg/dL [facility] Comment: Supplemental ranges: <140 mg/dL before meals <180 mg/dL all other times of the day Blood 12/14/2023 2:35 PM EST 12/14/2023 2:35 PM EST Abram Wei MD POINT OF CARE TEST ORDERABLES Performing Organization Address [facility] Co de Phone Number [facility] [place] [address] * C-peptide (12/14/2023 2:11 PM EST) C-Peptide 1.4 1.1 - 4.4 ng/mL [facility] Comment:Reference intervals derived from fasting individuals Blood 12/14/2023 2:11 PM EST 12/14/2023 2:52 PM EST Narrative Resulting Agency Comment Spec In Lab Janina Moon APRN CHEMISTRY ORDERABLE S Performing Organization Address [facility] de Phone Number [facility] [place] [address] * (ABNORMAL) Glucose, fasting (12/14/2023 2:11 PM EST) Glucose Fasting 145(H) 65 - 99 mg/dL [facility] Comment: ?Fasting* Glucose Interpretive Criteria Normal [...] of Diabetes Mellitus, Position Statement from the [employer]. ??Diabetes Care, Volume 33, Supplement 1, Nov 2009 Blood 12/14/2023 2:11 PM EST 12/14/2023 2:52 PM EST Narrative Resulting Agency Comment Spec In Lab Janina Moon APRN CHEMISTRY ORDERABLE S Performing Organization Address [facility] Co de Phone Number [facility] [place] [address] * (ABNORMAL) Beta Hydroxybutyrate (12/14/2023 2:11 PM EST) Beta-hydroxybuturat e 0.61(H) 0.00 - 0.30 mmol/L [facility] Comment: This test has not been cleared by the US FDA. Performance characteristics of this test were determined by [facility] in accordance with CLIA requirements. This laboratory is qualified under CLIA to perform high-complexity testing. Blood 12/14/2023 2:11 PM EST 12/14/2023 2:52 PM EST Narrative Resulting Agency Comment Spec In Lab Frances Eisenberg MD CHEMISTRY ORDERABLES Performing Organization Address [facility] Co de Phone Number [facility] [place] [address] * (ABNORMAL) Basic Metabolic Panel (non-fasting) (12/14/2023 2:11 PM EST) Glucose 147 65 - 199 mg/dL [facility] Comment:Diabetes: >=200 mg/d L plus symptoms Blood Urea Nitrogen 24(H) 10 - 20 mg/dL [facility] Creatinine 0.79(L) 0.80 - 1.50 mg/dL [facility] Sodium 134(L) 135 - 145 mmol/L [facility] Potassium 3.8 3.5 - 5.0 mmol/L [facility] Comment: Please note: ??Patients with WBC >100,000 may have falsely elevated Potassium levels. ??For accurate Potassium quantification in these patients send serum separator tube (gold top) for subsequent determinations. ??Contact the Clinical Chemistry Laboratory if there are any questions. Chloride 97(L) 98 - 107 mmol/L [facility] Carbon Dioxide 22 22 - 31 mmol/L [facility] Anion Gap 15 5 - 15 mmol/L [facility] Calcium 9.1 8.5 - 10.5 mg/dL [facility] Est Glomerular Filtration Rate 101 >=60 mL/min/1. 73 m?? [facility] Comment: This patient's estimated GFR [...] In Lab Frances Eisenberg MD CHEMISTRY ORDERABLES [facility] [place] [address] * POCT Glucose (12/14/2023 1:19 PM EST) Glucose, POC 153 65 - 199 mg/dL [facility] Comment: Supplemental ranges: <140 mg/dL before meals <180 mg/dL all other times of the day Blood 12/14/2023 1:19 PM EST 12/14/2023 1:19 PM EST Jon Root MD POINT OF CARE T EST ORDERABLES [facility] [place] [address] * POCT Glucose (12/14/2023 12:13 PM EST) Glucose, POC 139 65 - 199 mg/dL [facility] Comment: Supplemental ranges: <140 mg/dL before meals <180 mg/dL all other times of the day Blood 12/14/2023 12:1 3 PM EST 12/14/2023 12:13 PM EST Jon Root MD POINT OF CARE T EST ORDERABLES Performing Organization Address [facility] Co de Phone Number [facility] [place] [address] * POCT Glucose (12/14/2023 10:55 AM EST) Glucose, POC 185 65 - 199 mg/dL [facility] Comment: Supplemental ranges: <140 mg/dL before meals <180 mg/dL all other times of the day Blood 12/14/2023 10:5 5 AM EST 12/14/2023 10:55 AM EST Jon Root MD POINT OF CARE T EST ORDERABLES Performing Organization Address [facility] de Phone Number [facility] [place] [address] * (ABNORMAL) Beta Hydroxybutyrate (12/14/2023 9:59 AM EST) Beta-hydroxybuturat e 0.52(H) 0.00 - 0.30 mmol/L [facility] Comment: This test has not been cleared by the US FDA. Performance characteristics of this test were determined by [facility] in accordance with CLIA requirements. This laboratory is qualified under CLIA to perform high-complexity testing. Blood 12/14/2023 9:59 AM EST 12/14/2023 10:09 AM EST Narrative Resulting Agency Comment Spec In Lab Frances Eisenberg MD CHEMISTRY ORDERABLES Performing Organization Address [facility] Co de Phone Number [facility] [place] [address] * (ABNORMAL) Basic Metabolic Panel (non-fasting) (12/14/2023 9:59 AM EST) Glucose 212(H) 65 - 199 mg/dL [facility] Comment:Diabetes: >=200 mg/d L plus symptoms Blood Urea Nitrogen 24(H) 10 - 20 mg/dL [facility] Creatinine 0.89 0.80 - 1.50 mg/dL [facility] Sodium 132(L) 135 - 145 mmol/L [facility] Potassium 3.8 3.5 - 5.0 mmol/L [facility] Comment: Please note: ??Patients with WBC >100,000 may have falsely elevated Potassium levels. ??For accurate Potassium quantification in these patients send serum separator tube (gold top) for subsequent determinations. ??Contact the Clinical Chemistry Laboratory if there are any questions. Chloride 96(L) 98 - 107 mmol/L [facility] Carbon Dioxide 24 22 - 31 mmol/L [facility] Anion Gap 12 5 - 15 mmol/L [facility] Calcium 9.1 8.5 - 10.5 mg/dL [facility] Est Glomerular Filtration Rate 97 >=60 mL/min/1. 73 m?? [facility] Comment: This patient's estimated GFR [...] In Lab Frances Eisenberg MD CHEMISTRY ORDERABLES [facility] [place] [address] * (ABNORMAL) POCT Glucose (12/14/2023 9:42 AM EST) Glucose, POC 247(H) 65 - 199 mg/dL [facility] Comment: Supplemental ranges: <140 mg/dL before meals <180 mg/dL all other times of the day Blood 12/14/2023 9:42 AM EST 12/14/2023 9:42 AM EST Jon Root MD POINT OF CARE T EST ORDERABLES Performing Organization Address City/[facility] Co de Phone Number [facility] [place] [address] * (ABNORMAL) POCT Glucose (12/14/2023 8:43 AM EST) Glucose, POC 209(H) 65 - 199 mg/dL [facility] Comment: Supplemental ranges: <140 mg/dL before meals <180 mg/dL all other times of the day Blood 12/14/2023 8:43 AM EST 12/14/2023 8:43 AM EST Jon Root MD POINT OF CARE T EST ORDERABLES Performing Organization Address [facility] Co de Phone Number [facility] [place] [address] * POCT Glucose (12/14/2023 7:43 AM EST) Glucose, POC 183 65 - 199 mg/dL [facility] Comment: Supplemental ranges: <140 mg/dL before meals <180 mg/dL all other times of the day Blood 12/14/2023 7:43 AM EST 12/14/2023 7:43 AM EST Jon Root MD POINT OF CARE T EST ORDERABLES Performing Organization Address City/[facility] Co de Phone Number [facility] [place] [address] * POCT Glucose (12/14/2023 6:27 AM EST) Glucose, POC 167 65 - 199 mg/dL [facility] Comment: Supplemental ranges: <140 mg/dL before meals <180 mg/dL all other times of the day Blood 12/14/2023 6:27 AM EST 12/14/2023 6:27 AM EST Jon Root MD POINT OF CARE T EST ORDERABLES Performing Organization Address [facility] Co de Phone Number [facility] [place] [address] * POCT Glucose (12/14/2023 5:30 AM EST) Glucose, POC 190 65 - 199 mg/dL [facility] Comment: Supplemental ranges: <140 mg/dL before meals <180 mg/dL all other times of the day Blood 12/14/2023 5:30 AM EST 12/14/2023 5:30 AM EST Jon Root MD POINT OF CARE T EST ORDERABLES Performing Organization Address [facility] Co de Phone Number [facility] [place] [address] * POCT Glucose (12/14/2023 4:38 AM EST) Glucose, POC 179 65 - 199 mg/dL [facility] Comment: Supplemental ranges: <140 mg/dL before meals <180 mg/dL all other times of the day Blood 12/14/2023 4:38 AM EST 12/14/2023 4:38 AM EST Jon Root MD POINT OF CARE T EST ORDERABLES Performing Organization Address [facility] Co de Phone Number [facility] [place] [address] * (ABNORMAL) BMP w/fasting Glucose (12/14/2023 3:36 AM EST) Glucose Fasting 172(H) 65 - 99 mg/dL [facility] Comment: ?Fasting* Glucose Interpretive Criteria Normal [...] of Diabetes Mellitus, Position Statement from the [employer]. ??Diabetes Care, Volume 33, Supplement 1, Nov 2009 Blood Urea Nitrogen 27(H) 10 - 20 mg/dL [facility] Creatinine 0.81 0.80 - 1.50 mg/dL [facility] Sodium 133(L) 135 - 145 mmol/L [facility] Potassium 3.7 3.5 - 5.0 mmol/L [facility] Comment: Please note: ??Patients with WBC >100,000 may have falsely elevated Potassium levels. ??For accurate Potassium quantification in these patients send serum separator tube (gold top) for subsequent determinations. ??Contact the Clinical Chemistry Laboratory if there are any questions. Chloride 100 98 - 107 mmol/L [facility] Carbon Dioxide 19(L) 22 - 31 mmol/L [facility] Anion Gap 14 5 - 15 mmol/L [facility] Calcium 8.9 8.5 - 10.5 mg/dL [facility] Est Glomerular Filtration Rate 100 >=60 mL/min/1. 73 m?? [facility] Comment: This patient's estimated GFR [...] In Lab John Huitron MD CHEMISTRY ORDERABLES [facility] [place] [address] * (ABNORMAL) Beta Hydroxybutyrate (12/14/2023 3:36 AM EST) Beta-hydroxybuturat e 0.56(H) 0.00 - 0.30 mmol/L [facility] Comment: This test has not been cleared by the US FDA. Performance characteristics of this test were determined by [facility] in accordance with CLIA requirements. This laboratory is qualified under CLIA to perform high-complexity testing. Blood 12/14/2023 3:36 AM EST 12/14/2023 4:13 AM EST Narrative Resulting Agency Comment Spec In Lab Frances Eisenberg MD CHEMISTRY ORDERABLES Performing Organization Address City/[facility]/ZIP Co de Phone Number [facility] [place] [address] * POCT Glucose (12/14/2023 3:26 AM EST) Glucose, POC 174 65 - 199 mg/dL [facility] Comment: Supplemental ranges: <140 mg/dL before meals <180 mg/dL all other times of the day Blood 12/14/2023 3:26 AM EST 12/14/2023 3:26 AM EST Jon Root MD POINT OF CARE T EST ORDERABLES Performing Organization Address City/[facility]/ZIP Co de Phone Number [facility] [place] [address] * POCT Glucose (12/14/2023 2:20 AM EST) Glucose, POC 143 65 - 199 mg/dL [facility] Comment: Supplemental ranges: <140 mg/dL before meals <180 mg/dL all other times of the day Blood 12/14/2023 2:20 AM EST 12/14/2023 2:20 AM EST Jon Root MD POINT OF CARE T EST ORDERABLES Performing Organization Address City/[facility]/ZIP Co de Phone Number [facility] [place] [address] * POCT Glucose (12/14/2023 1:42 AM EST) Glucose, POC 134 65 - 199 mg/dL [facility] Comment: Supplemental ranges: <140 mg/dL before meals <180 mg/dL all other times of the day Blood 12/14/2023 1:42 AM EST 12/14/2023 1:42 AM EST Jon Root MD POINT OF CARE T EST ORDERABLES Performing Organization Address City/[facility] Co de Phone Number [facility] [place] [address] * POCT Glucose (12/14/2023 12:31 AM EST) Glucose, POC 157 65 - 199 mg/dL [facility] Comment: Supplemental ranges: <140 mg/dL before meals <180 mg/dL all other times of the day Blood 12/14/2023 12:3 1 AM EST 12/14/2023 12:31 AM EST Jon Root MD POINT OF CARE T EST ORDERABLES Performing Organization Address [facility] de Phone Number [facility] [place] [address] * (ABNORMAL) Basic Metabolic Panel (non-fasting) (12/14/2023 12:09 AM EST) Glucose 152 65 - 199 mg/dL [facility] Comment:Diabetes: >=200 mg/d L plus symptoms Blood Urea Nitrogen 29(H) 10 - 20 mg/dL [facility] Creatinine 0.94 0.80 - 1.50 mg/dL [facility] Sodium 134(L) 135 - 145 mmol/L [facility] Potassium 3.7 3.5 - 5.0 mmol/L [facility] Comment: Please note: ??Patients with WBC >100,000 may have falsely elevated Potassium levels. ??For accurate Potassium quantification in these patients send serum separator tube (gold top) for subsequent determinations. ??Contact the Clinical Chemistry Laboratory if there are any questions. Chloride 101 98 - 107 mmol/L [facility] Carbon Dioxide 18(L) 22 - 31 mmol/L [facility] Anion Gap 15 5 - 15 mmol/L [facility] Calcium 9.0 8.5 - 10.5 mg/dL [facility] Est Glomerular Filtration Rate 92 >=60 mL/min/1. 73 m?? [facility] Comment: This patient's estimated GFR [...] Huitron MD CHEMISTRY ORDERABLES Performing Organization Address [facility] Co de Phone Number [facility] [place] [address] * Beta Hydroxybutyrate (12/14/2023 12:09 AM EST) Beta-hydroxybuturat e 0.27 0.00 - 0.30 mmol/L [facility] Comment: This test has not been cleared by the US FDA. Performance characteristics of this test were determined by [facility] in accordance with CLIA requirements. This laboratory is qualified under CLIA to perform high-complexity testing. Blood 12/14/2023 12:0 9 AM EST 12/14/2023 12:42 AM EST Narrative Resulting Agency Comment Spec In Lab Frances Eisenberg MD CHEMISTRY ORDERABLES Performing Organization Address City/[facility]/ZIP Co de Phone Number [facility] [place] [address] * POCT Glucose (12/13/2023 11:35 PM EST) Glucose, POC 157 65 - 199 mg/dL [facility] Comment: Supplemental ranges: <140 mg/dL before meals <180 mg/dL all other times of the day Blood 12/13/2023 11:3 5 PM EST 12/13/2023 11:35 PM EST Jon Root MD POINT OF CARE T EST ORDERABLES [facility] [place] [address] * POCT Glucose (12/13/2023 10:35 PM EST) Glucose, POC 177 65 - 199 mg/dL [facility] Comment: Supplemental ranges: <140 mg/dL before meals <180 mg/dL all other times of the day Blood 12/13/2023 10:3 5 PM EST 12/13/2023 10:35 PM EST Jon Root MD POINT OF CARE T EST ORDERABLES Performing Organization Address City/[facility] Co de Phone Number [facility] [place] [address] * POCT Glucose (12/13/2023 9:31 PM EST) Glucose, POC 195 65 - 199 mg/dL [facility] Comment: Supplemental ranges: <140 mg/dL before meals <180 mg/dL all other times of the day Blood 12/13/2023 9:31 PM EST 12/13/2023 9:31 PM EST Jon Root MD POINT OF CARE T EST ORDERABLES Performing Organization Address City/State/[facility] Co de Phone Number [facility] [place] [address] * POCT Glucose (12/13/2023 8:38 PM EST) Glucose, POC 195 65 - 199 mg/dL [facility] Comment: Supplemental ranges: <140 mg/dL before meals <180 mg/dL all other times of the day Blood 12/13/2023 8:38 PM EST 12/13/2023 8:38 PM EST Jon Root MD POINT OF CARE T EST ORDERABLES [facility] [place] [address] * (ABNORMAL) Basic Metabolic Panel (non-fasting) (12/13/2023 7:56 PM EST) Glucose 206(H) 65 - 199 mg/dL [facility] Comment:Diabetes: >=200 mg/d L plus symptoms Blood Urea Nitrogen 31(H) 10 - 20 mg/dL [facility] Creatinine 1.03 0.80 - 1.50 mg/dL [facility] Sodium 133(L) 135 - 145 mmol/L [facility] Potassium 3.5 3.5 - 5.0 mmol/L [facility] Comment: Please note: ??Patients with WBC >100,000 may have falsely elevated Potassium levels. ??For accurate Potassium quantification in these patients send serum separator tube (gold top) for subsequent determinations. ??Contact the Clinical Chemistry Laboratory if there are any questions. Chloride 99 98 - 107 mmol/L [facility] Carbon Dioxide 19(L) 22 - 31 mmol/L [facility] Anion Gap 15 5 - 15 mmol/L [facility] Calcium 9.0 8.5 - 10.5 mg/dL [facility] Est Glomerular Filtration Rate 83 >=60 mL/min/1. 73 m?? [facility] Comment: This patient's estimated GFR [...] Eisenberg MD CHEMISTRY ORDERABLES Performing Organization Address City/[facility] Co de Phone Number [facility] [place] [address] * Beta Hydroxybutyrate (12/13/2023 7:56 PM EST) Beta-hydroxybuturat e 0.17 0.00 - 0.30 mmol/L [facility] Comment: This test has not been cleared by the [place] FDA. Performance characteristics of this test were determined by [facility] in accordance with CLIA requirements. This laboratory is qualified under CLIA to perform high-complexity testing. Blood 12/13/2023 7:56 PM EST 12/13/2023 8:15 PM EST Narrative Resulting Agency Comment Spec In Lab Frances Eisenberg MD CHEMISTRY ORDERABLES Performing Organization Address [facility] Co de Phone Number [facility] [place] [address] * Phosphorus (12/13/2023 7:56 PM EST) Phosphorus 4.1 2.5 - 4.5 mg/dL [facility] Blood 12/13/2023 7:56 PM EST 12/13/2023 8:15 PM EST Narrative Resulting Agency Comment Spec In Lab Frances Eisenberg MD CHEMISTRY ORDERABLES Performing Organization Address [facility] Co de Phone Number [facility] [place] [address] * Magnesium (12/13/2023 7:56 PM EST) Magnesium 0.90 0.69 - 1.07 mmol/L [facility] Blood 12/13/2023 7:56 PM EST 12/13/2023 8:15 PM EST Narrative Resulting Agency Comment Spec In Lab Frances Eisenberg MD CHEMISTRY ORDERABLES Performing Organization Address City/[facility]/ZIP Co de Phone Number [facility] [place] [address] * (ABNORMAL) POCT Glucose (12/13/2023 7:28 PM EST) Glucose, POC 202(H) 65 - 199 mg/dL [facility] Comment: Supplemental ranges: <140 mg/dL before meals <180 mg/dL all other times of the day Blood 12/13/2023 7:28 PM EST 12/13/2023 7:28 PM EST Jon Root MD POINT OF CARE T EST ORDERABLES Performing Organization Address [facility] Co de Phone Number [facility] [place] [address] * POCT Glucose (12/13/2023 6:34 PM EST) Glucose, POC 178 65 - 199 mg/dL [facility] Comment: Supplemental ranges: <140 mg/dL before meals <180 mg/dL all other times of the day Blood 12/13/2023 6:34 PM EST 12/13/2023 6:34 PM EST Jon Root MD POINT OF CARE T EST ORDERABLES Performing Organization Address [facility] Co de Phone Number [facility] [place] [address] * POCT Glucose (12/13/2023 6:03 PM EST) Glucose, POC 167 65 - 199 mg/dL [facility] Comment: Supplemental ranges: <140 mg/dL before meals <180 mg/dL all other times of the day Blood 12/13/2023 6:03 PM EST 12/13/2023 6:03 PM EST Jon Root MD POINT OF CARE T EST ORDERABLES Performing Organization Address City/[facility]/ZIP Co de Phone Number [facility] [place] [address] * POCT Glucose (12/13/2023 5:32 PM EST) Glucose, POC 169 65 - 199 mg/dL [facility] Comment: Supplemental ranges: <140 mg/dL before meals <180 mg/dL all other times of the day Blood 12/13/2023 5:32 PM EST 12/13/2023 5:32 PM EST Jon Root MD POINT OF CARE T EST ORDERABLES [facility] [place] [address] * POCT Glucose (12/13/2023 4:58 PM EST) Glucose, POC 134 65 - 199 mg/dL [facility] Comment: Supplemental ranges: <140 mg/dL before meals <180 mg/dL all other times of the day Blood 12/13/2023 4:58 PM EST 12/13/2023 4:58 PM EST Jon Root MD POINT OF CARE T EST ORDERABLES Performing Organization Address [facility] Co de Phone Number [facility] [place] [address] * Beta Hydroxybutyrate (12/13/2023 4:06 PM EST) Beta-hydroxybuturat e <0.10 0.00 - 0.30 mmol/L [facility] Comment: This test has not been cleared by the US FDA. Performance characteristics of this test were determined by [facility] in accordance with CLIA requirements. This laboratory is qualified under CLIA to perform high-complexity testing. Blood Venous Draw / Unknown 12/13/2023 4:06 PM EST 12/13/2023 4:42 PM EST Narrative Resulting Agency Comment Spec In Lab Dorys Cardoza MD CHEMISTRY ORDERABLES Performing Organization Address City/[facility]/ZIP Co de Phone Number [facility] [place] [address] * (ABNORMAL) Basic Metabolic Panel (non-fasting) (12/13/2023 4:06 PM EST) Glucose 176 65 - 199 mg/dL [facility] Comment:Diabetes: >=200 mg/d L plus symptoms Blood Urea Nitrogen 33(H) 10 - 20 mg/dL [facility] Creatinine 1.26 0.80 - 1.50 mg/dL [facility] Sodium 134(L) 135 - 145 mmol/L [facility] Potassium 3.8 3.5 - 5.0 mmol/L [facility] Comment: Please note: ??Patients with WBC >100,000 may have falsely elevated Potassium levels. ??For accurate Potassium quantification in these patients send serum separator tube (gold top) for subsequent determinations. ??Contact the Clinical Chemistry Laboratory if there are any questions. Chloride 100 98 - 107 mmol/L [facility] Carbon Dioxide 17(L) 22 - 31 mmol/L [facility] Anion Gap 17(H) 5 - 15 mmol/L [facility] Calcium 9.3 8.5 - 10.5 mg/dL [facility] Est Glomerular Filtration Rate 65 >=60 mL/min/1. 73 m?? [facility] Comment: This patient's estimated GFR [...] In Lab Frances Eisenberg MD CHEMISTRY ORDERABLES [facility] [place] [address] * POCT Glucose (12/13/2023 3:55 PM EST) Glucose, POC 168 65 - 199 mg/dL [facility] Comment: Supplemental ranges: <140 mg/dL before meals <180 mg/dL all other times of the day Blood 12/13/2023 3:55 PM EST 12/13/2023 3:55 PM EST Jon Root MD POINT OF CARE T EST ORDERABLES Performing Organization Address City/[facility] Co de Phone Number [facility] [place] [address] * (ABNORMAL) POCT Glucose (12/13/2023 2:55 PM EST) Glucose, POC 220(H) 65 - 199 mg/dL [facility] Comment: Supplemental ranges: <140 mg/dL before meals <180 mg/dL all other times of the day Blood 12/13/2023 2:55 PM EST 12/13/2023 2:55 PM EST Jon Root MD POINT OF CARE T EST ORDERABLES Performing Organization Address [facility] Co de Phone Number [facility] [place] [address] * (ABNORMAL) POCT Glucose (12/13/2023 1:56 PM EST) Glucose, POC 245(H) 65 - 199 mg/dL [facility] Comment: Supplemental ranges: <140 mg/dL before meals <180 mg/dL all other times of the day Blood 12/13/2023 1:56 PM EST 12/13/2023 1:56 PM EST Jon Root MD POINT OF CARE T EST ORDERABLES Performing Organization Address City/[facility] Co de Phone Number [facility] [place] [address] * (ABNORMAL) POCT Glucose (12/13/2023 1:07 PM EST) Glucose, POC 289(H) 65 - 199 mg/dL [facility] Comment: Supplemental ranges: <140 mg/dL before meals <180 mg/dL all other times of the day Blood 12/13/2023 1:07 PM EST 12/13/2023 1:07 PM EST Jon Root MD POINT OF CARE T EST ORDERABLES Performing Organization Address City/[facility] Co de Phone Number [facility] [place] [address] * (ABNORMAL) POCT Glucose (12/13/2023 12:30 PM EST) Glucose, POC 302(H) 65 - 199 mg/dL [facility] Comment: Supplemental ranges: <140 mg/dL before meals <180 mg/dL all other times of the day Blood 12/13/2023 12:3 0 PM EST 12/13/2023 12:30 PM EST Jon Root MD POINT OF CARE T EST ORDERABLES Performing Organization Address [facility] Co de Phone Number [facility] [place] [address] * (ABNORMAL) Beta Hydroxybutyrate (12/13/2023 11:58 AM EST) Beta-hydroxybuturat e 0.71(H) 0.00 - 0.30 mmol/L [facility] Comment: This test has not been cleared by the [place] FDA. Performance characteristics of this test were determined by [facility] in accordance with CLIA requirements. This laboratory is qualified under CLIA to perform high-complexity testing. Blood 12/13/2023 11:5 8 AM EST 12/13/2023 12:10 PM EST Narrative Resulting Agency Comment Spec In Lab Frances Eisenberg MD CHEMISTRY ORDERABLES Performing Organization Address City/[facility] Co de Phone Number [facility] [place] [address] * (ABNORMAL) Basic Metabolic Panel (non-fasting) (12/13/2023 11:58 AM EST) Glucose 324(H) 65 - 199 mg/dL [facility] Comment:Diabetes: >=200 mg/d L plus symptoms Blood Urea Nitrogen 34(H) 10 - 20 mg/dL [facility] Creatinine 1.40 0.80 - 1.50 mg/dL [facility] Sodium 133(L) 135 - 145 mmol/L [facility] Potassium 3.9 3.5 - 5.0 mmol/L [facility] Comment: Please note: ??Patients with WBC >100,000 may have falsely elevated Potassium levels. ??For accurate Potassium quantification in these patients send serum separator tube (gold top) for subsequent determinations. ??Contact the Clinical Chemistry Laboratory if there are any questions. Chloride 100 98 - 107 mmol/L [facility] Carbon Dioxide 18(L) 22 - 31 mmol/L [facility] Anion Gap 15 5 - 15 mmol/L [facility] Calcium 8.9 8.5 - 10.5 mg/dL [facility] Est Glomerular Filtration Rate 57(L) >=60 mL/min/1. 73 m?? [facility] Comment: This patient's estimated GFR [...] In Lab Frances Eisenberg MD CHEMISTRY ORDERABLES [facility] [place] [address] * (ABNORMAL) Diabetes Type 1 Evaluation (12/13/2023 11:58 AM EST) Diabetes Interpretation (MARCH) SEE COMMENTS [facility] Comment: This profile is consistent with [...] Kristie P, Julien M, Cordell R, Rolando Newell, Maggi L, Maikol J, Jose M, Gary [...] markers. Diabetes. 1997;46:1701-10. * Test Performed by: [place] [address] Sales Representative Printing Paper: Jesus Zelaya M.D. Ph.D.; CLIA# [id number] Gad65 Ab (MARCH) 0.87(H) <=0.02 nmol/L [facility] Comment: ADDITIONAL INFORMATION This test was developed and its performance characteristics determined by [facility] in a manner consistent with CLIA requirements. This test has not been cleared or approved by the U.S. Food and Drug Administration. Test Performed by: [place] [address] Sales Representative Printing Paper: Jesus Zelaya M.D. Ph.D.; CLIA# [id number] Insulin Antibody (MARCH) 0.00 0.00 - 0.02 nmol/L [facility] Comment: ADDITIONAL INFORMATION This test was developed and its performance characteristics determined by [facility] in a manner consistent with CLIA requirements. This test has not been cleared or approved by the U.S. Food and Drug Administration. Test Performed by: [facility] [place] [address] Sales Representative Printing Paper: Jesus Zelaya M.D. Ph.D.; CLIA# [id number] Ia-2 Ab (MARCH) 1.33(H) <=0.02 nmol/L [facility] Comment: ADDITIONAL INFORMATION This test was developed and its performance characteristics determined by [facility] in a manner consistent with CLIA requirements. This test has not been cleared or approved by the U.S. Food and Drug Administration. Test Performed by: [facility] [place] [address] Sales Representative Printing Paper: Jesus Zelaya M.D. Ph.D.; CLIA# [id number] Znt8 Ab (MARCH) 255(H) <15.0 unit/mL [facility] Comment: ADDITIONAL INFORMATION This test has been modified from the retail account manager's instructions. Its performance characteristics were determined by [facility] in a manner consistent with CLIA requirements. This test has not been cleared or approved by the U.S. Food and Drug Administration. Test Performed by: [facility] [place] [address] Sales Representative Printing Paper: Jesus Zelaya M.D. Ph.D.; CLIA# [id number] Blood 12/13/2023 11:5 8 AM EST 12/13/2023 2:25 PM EST Narrative Resulting Agency Comment Spec In Lab Frances Eisenberg MD LAB SEND OUT ORDERAB LES Performing Organization Address [facility] Phone Number [facility] [place] [address] * Cyclic Citrullinated Peptide (12/13/2023 11:58 AM EST) Cyclic Citrulline Peptide <8.0 <=16.9 unit/mL [facility] Blood 12/13/2023 11:5 8 AM EST 12/13/2023 12:10 PM EST Narrative Resulting Agency Comment Spec In Lab Frances Eisenberg MD CHEMISTRY ORDERABLES Performing Organization Address [facility] Number [facility] [place] [address] * (ABNORMAL) POCT Glucose (12/13/2023 11:56 AM EST) Glucose, POC 335(H) 65 - 199 mg/dL [facility] Comment: Supplemental ranges: <140 mg/dL before meals <180 mg/dL all other times of the day Blood 12/13/2023 11:5 6 AM EST 12/13/2023 11:56 AM EST Frances Eisenberg MD POINT OF CARE TEST O RDERABLES Performing Organization Address [facility] Phone Number [facility] [place] [address] * (ABNORMAL) POCT Glucose (12/13/2023 10:51 AM EST) Glucose, POC 252(H) 65 - 199 mg/dL [facility] Comment: Supplemental ranges: <140 mg/dL before meals <180 mg/dL all other times of the day Blood 12/13/2023 10:5 1 AM EST 12/13/2023 10:51 AM EST Frances Eisenberg MD POINT OF CARE TEST O RDERABLES Performing Organization Address [facility] Co de Phone Number [facility] [place] [address] * POCT Glucose (12/13/2023 9:58 AM EST) Glucose, POC 187 65 - 199 mg/dL [facility] Comment: Supplemental ranges: <140 mg/dL before meals <180 mg/dL all other times of the day Blood 12/13/2023 9:58 AM EST 12/13/2023 9:58 AM EST Frances Eisenberg MD POINT OF CARE TEST O RDERABLES Performing Organization Address [facility] de Phone Number [facility] [place] [address] * XR Chest One View (12/13/2023 9:28 [...] who have questions please contact the health healthcare advisory services manager that requested your imaging first. ? [...] patients who have questions please contactthe health healthcare advisory services manager that requested your imaging first. Electronically signed by: Maral Camejo MD, [facility]([phone]), at 12/13/2023 9:37 AM Frances Eisenberg MD IMG DX ORDERABLES * EKG 12 Lead (12/13/2023 9:04 AM EST) Ventricular rate 71 BPM MUSE SYSTEM Atrial Rate 71 BPM MUSE SYSTEM P-R Interval 186 ms MUSE SYSTEM QRS Duration 110 ms MUSE SYSTEM Q-T Interval 430 ms MUSE SYSTEM QTC Calculated (Bezet) 467 ms MUSE SYSTEM Calculated P [place] 58 degrees MUSE SYSTEM Calculated R [place] -67 degrees MUSE SYSTEM Calculated T [place] 116 degrees MUSE SYSTEM INTERPRETATION Normal sinus rhythm Left axis deviation Inferior-poste rior infarct , possibly acute T wave abnormality, consider lateral ischemia Consider right ventricular involvement in acute inferior infarct Abnormal ECG When compared with ECG of 12-DEC-2023 19:04, (unconfirmed) Inferior posterior [place] ST changes appear improved. Confirmed by fellow Aubrie Solorio ([id number]) on 12/13/2023 10:28:15 PM Confirmed by MD Mary CarmenKunal ([id number]) on 12/14/2023 2:10:45 PM MUSE SYSTEM 12/13/2023 9:04 AM EST 12/14/2023 2:10 PM EST Frances Eisenberg MD ECG ORDERABLES Performing Organization Address City/[facility]/ZIP Co de Phone Number MUSE SYSTEM * POCT Glucose (12/13/2023 9:02 AM EST) Glucose, POC 177 65 - 199 mg/dL [facility] Comment: Supplemental ranges: <140 mg/dL before meals <180 mg/dL all other times of the day Blood 12/13/2023 9:02 AM EST 12/13/2023 9:02 AM EST Frances Eisenberg MD POINT OF CARE TEST O RDERABLES Performing Organization Address City/[facility] Co de Phone Number [facility] [place] [address] * ECHO COMPLETE W CONTRAST (12/13/2023 8:11 AM EST) Anatomical Region Laterality Modality Cardiac Other 12/13/2023 6:41 AM EST Narrative 12/13/2023 8:30 AM EST [address] [place] [address] ? Echocardiogram Report Name: MARTÍN ALVARADO ?Study Date: 12/13/2023 06:41 AMBP: 110/81 mmHg ? Patient Location: [facility] CV28 A : 1960 ? Height: 180 cm ? Account: [id number] Age: 63 yrs ? 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 Interpretation Summary -Left ventricular systolic function [...] no significant valve disease. -Other than a fnwcr-fn-zmmc study performed on yesterday's date with similar findings, no comparison study is available. See report for additional findings. Procedure Complete-30824. Image enhancement Optison was used for Doppler [...] Note Mani Mcguire MD - 12/13/2023 [address] [place] [address] Echocardiogram Report Name: MARTÍN ALVARADO Study Date: 406:41 AMBP: 110/81 mmHg Patient Location: [address] : 1960 Height: 180 cm Account: [id number] Age: 63 yrs Weight: 134 kg Gender: Male BSA: 2.5 m2 Ordering Physician: FRANCES EISENBERG Referring Physician: JEAN-CLAUDE JOINER Performed By: Danita Gore [facility] Reason For Study: ST elevation myocardial infarction involving leftcircumflex coronary artery [I21.21 (ICD-10-CM)] Exam Location: [facility]. Interpretation Summary -Left ventricular systolic function is mildly reduced. The leftventricular ejection fraction is 41% by Wells's biplane. There is akinesis of the inferolateral and anterolateral segments. -The right ventricle is of normal size. Right ventricular systolicfunction is normal. Pulmonary artery hypertension could not be assessed due toinadequate tricuspid regurgitation jet. -There is no significant valve disease. -Other than a puwns-av-gqdt study performed on yesterday's date withsimilar findings, no comparison study is available. See report for additionalfindings. Procedure Complete-[id number]. Image enhancement Optison was used for Dopplerdefinition. [...] * POCT Glucose (12/13/2023 7:52 AM EST) [facility] Signature Glucose, POC 178 65 - 199 mg/dL [facility] Comment: Supplemental ranges: <140 mg/dL before meals <180 mg/dL all other times of the day Blood 12/13/2023 7:52 AM EST 12/13/2023 7:52 AM EST Frances Eisenberg MD POINT OF CARE TEST O RDERABLES Performing Organization Address [facility] Co de Phone Number [facility] [place] [address] * (ABNORMAL) Beta Hydroxybutyrate (12/13/2023 7:50 AM EST) Beta-hydroxybuturat e 0.46(H) 0.00 - 0.30 mmol/L [facility] Comment: This test has not been cleared by the US FDA. Performance characteristics of this test were determined by [facility] in accordance with CLIA requirements. This laboratory is qualified under CLIA to perform high-complexity testing. Blood 12/13/2023 7:50 AM EST 12/13/2023 7:56 AM EST Narrative Resulting Agency Comment Spec In Lab Frances Eisenberg MD CHEMISTRY ORDERABLES Performing Organization Address [facility] Co de Phone Number [facility] [place] [address] * (ABNORMAL) Basic Metabolic Panel (non-fasting) (12/13/2023 7:50 AM EST) Glucose 176 65 - 199 mg/dL [facility] Comment:Diabetes: >=200 mg/d L plus symptoms Blood Urea Nitrogen 33(H) 10 - 20 mg/dL [facility] Creatinine 1.60(H) 0.80 - 1.50 mg/dL [facility] Sodium 133(L) 135 - 145 mmol/L [facility] Potassium 4.3 3.5 - 5.0 mmol/L [facility] Comment: Please note: ??Patients with WBC >100,000 may have falsely elevated Potassium levels. ??For accurate Potassium quantification in these patients send serum separator tube (gold top) for subsequent determinations. ??Contact the Clinical Chemistry Laboratory if there are any questions. Chloride 99 98 - 107 mmol/L [facility] Carbon Dioxide 17(L) 22 - 31 mmol/L [facility] Anion Gap 17(H) 5 - 15 mmol/L [facility] Calcium 8.4(L) 8.5 - 10.5 mg/dL [facility] Est Glomerular Filtration Rate 49(L) >=60 mL/min/1. 73 m?? [facility] Comment: This patient's estimated GFR [...] Eisenberg MD CHEMISTRY ORDERABLES Performing Organization Address [facility] Co de Phone Number [facility] [place] [address] * POCT Glucose (12/13/2023 6:16 AM EST) Glucose, POC 163 65 - 199 mg/dL [facility] Comment: Supplemental ranges: <140 mg/dL before meals <180 mg/dL all other times of the day Blood 12/13/2023 6:16 AM EST 12/13/2023 6:16 AM EST Frances Eisenberg MD POINT OF CARE TEST O RDERABLES Performing Organization Address City/[facility]/ZIP Co de Phone Number [facility] [place] [address] * POCT Glucose (12/13/2023 5:04 AM EST) Glucose, POC 169 65 - 199 mg/dL [facility] Comment: Supplemental ranges: <140 mg/dL before meals <180 mg/dL all other times of the day Blood 12/13/2023 5:04 AM EST 12/13/2023 5:04 AM EST Frances Eisenberg MD POINT OF CARE TEST O GERTRUDIS Performing Organization Address [facility] Co de Phone Number [facility] [place] [address] * POCT Glucose (12/13/2023 4:09 AM EST) Glucose, POC 179 65 - 199 mg/dL [facility] Comment: Supplemental ranges: <140 mg/dL before meals <180 mg/dL all other times of the day Blood 12/13/2023 4:09 AM EST 12/13/2023 4:09 AM EST Frances Eisenberg MD POINT OF CARE TEST O GERTRUDIS Performing Organization Address [facility] de Phone Number [facility] [place] [address] * (ABNORMAL) Beta Hydroxybutyrate (12/13/2023 4:00 AM EST) Beta-hydroxybuturat e 0.35(H) 0.00 - 0.30 mmol/L [facility] Comment: This test has not been cleared by the US FDA. Performance characteristics of this test were determined by [facility] in accordance with CLIA requirements. This laboratory is qualified under CLIA to perform high-complexity testing. Blood 12/13/2023 4:00 AM EST 12/13/2023 4:24 AM EST Narrative Resulting Agency Comment Spec In Lab Frances Eisenberg MD CHEMISTRY ORDERABLES Performing Organization Address [facility] Co de Phone Number [facility] [place] [address] * (ABNORMAL) Basic Metabolic Panel (non-fasting) (12/13/2023 4:00 AM EST) Glucose 168 65 - 199 mg/dL [facility] Comment:Diabetes: >=200 mg/d L plus symptoms Blood Urea Nitrogen 31(H) 10 - 20 mg/dL [facility] Creatinine 1.64(H) 0.80 - 1.50 mg/dL [facility] Sodium 136 135 - 145 mmol/L [facility] Potassium 4.2 3.5 - 5.0 mmol/L [facility] Comment: Please note: ??Patients with WBC >100,000 may have falsely elevated Potassium levels. ??For accurate Potassium quantification in these patients send serum separator tube (gold top) for subsequent determinations. ??Contact the Clinical Chemistry Laboratory if there are any questions. Chloride 101 98 - 107 mmol/L [facility] Carbon Dioxide 19(L) 22 - 31 mmol/L [facility] Anion Gap 16(H) 5 - 15 mmol/L [facility] Calcium 8.3(L) 8.5 - 10.5 mg/dL [facility] Est Glomerular Filtration Rate 47(L) >=60 mL/min/1. 73 m?? [facility] Comment: This patient's estimated GFR [...] Eisenberg MD CHEMISTRY ORDERABLES Performing Organization Address City/[facility] Co de Phone Number [facility] [place] [address] * POCT Glucose (12/13/2023 1:59 AM EST) Glucose, POC 179 65 - 199 mg/dL [facility] Comment: Supplemental ranges: <140 mg/dL before meals <180 mg/dL all other times of the day Blood 12/13/2023 1:59 AM EST 12/13/2023 1:59 AM EST Frances Eisenberg MD POINT OF CARE TEST O RDERABLES Performing Organization Address City/[facility]/[place] [address] * (ABNORMAL) Differential, Automated (12/13/2023 1:56 AM EST) Neutrophil % 77.2 % [facility] Neutrophil Absolute 12.55(H) 1.70 - 6.10 x10(3)/mc L [facility] Lymph % 13.4 % [facility] Lymphocytes Abs 2.2 0.9 - 3.2 x10(3)/ L [facility] Monocyte % 8.6 % [facility] Monocyte Abs 1.4(H) 0.3 - 0.9 x10(3)/[facility] Eos % 0.1 % [facility] Eosinophils Abs 0.0 0.0 - 0.4 x10(3)/[facility] Basophil % 0.1 % [facility] Baso Absolute 0.0 0.0 - 0.1 x10(3)/ L [facility] Immature Gran % 0.60 % [facility] Comment: Immature granulocytes(IG's)percentage and absolute count will include metamyelocytes, myelocytes, and promyelocytes. Blood smears from CBCs yielding IG's will be scanned manually for concordance. If this scan disagrees with the automated IG or if promyelocytes are noted, a manual differential will be performed. Immature Gran Absolute 0.10(H) 0.00 - 0.04 x10(3)/ L [facility] Blood 12/13/2023 1:56 AM EST 12/13/2023 2:08 AM EST Narrative Resulting Agency Comment Spec In Lab Dorys Cardoza MD HEMATOLOGY ORDERABLE S Performing Organization Address City/[facility]/[place] [address] * (ABNORMAL) Hemogram (12/13/2023 1:56 AM EST) White Blood Cell 16.2(H) 4.0 - 9.5 x10(3)/ L [facility] Red Blood Cell 4.88 4.58 - 5.54 x10(6)/mc L [facility] Hemoglobin 14.2 13.7 - 16.5 g/dL [facility] Hematocrit 41.7 40.5 - 48.5 % [facility] Mean Cell Volume 85.5 82.9 - 93.1 fL [facility] Mean Cell Hemoglobin 29.1 27.5 - 32.1 pg [facility] Mean Cell Hemoglobin Concentration 34.1 32.0 - 35.7 g/dL [facility] Platelet 272 145 - 357 x10(3)/mc L [facility] RDW Standard Deviation 39.0 36.0 - 45.0 fL [facility] RDW coefficient of variation 12.6 11.4 - 13.8 % [facility] Mean Platelet Volume 10.6 7.6 - 12.9 fL [facility] NRBC% auto 0.0 % [facility] NRBC Absolute 0.000 0.000 - 0.000 x10(3)/mc L [facility] Blood 12/13/2023 1:56 AM EST 12/13/2023 2:08 AM EST Narrative Resulting Agency Comment Spec In Lab Dorys Cardoza MD HEMATOLOGY ORDERABLE S [facility] [place] [address] * POCT Glucose (12/13/2023 12:40 AM EST) Glucose, POC 188 65 - 199 mg/dL [facility] Comment: Supplemental ranges: <140 mg/dL before meals <180 mg/dL all other times of the day Blood 12/13/2023 12:4 0 AM EST 12/13/2023 12:40 AM EST Frances Eisenberg MD POINT OF CARE TEST O RDERABLES [facility] [place] [address] * Hemogram (12/13/2023 12:34 AM EST) White Blood Cell Clotted 4.0 - 9.5 [facility] Comment: Called by: ashley, Read back by: Claire Schwartz, Date/Time:12/13/23 01:52. Corrected from 17.0 x10(3)/mcL [HI] on 12/13/23 1:54:17 EST by Merlin Kenney Red Blood Cell Clotted 4.58 - 5.54 [facility] Comment: Called by: ashley, Read back by: Claire Schawrtz, Date/Time:12/13/23 01:52. Corrected from 5.01 x10(6)/mcL on 12/13/23 1:54:17 EST by Merlin Kenney. Hemoglobin Clotted 13.7 - 16.5 [facility] Comment: Called by: ashley, Read back by: Claire Schwartz, Date/Time:12/13/23 01:52. Corrected from 14.5 g/dL on 12/13/23 1:54:17 EST by Merlin Kenney Hematocrit Clotted 40.5 - 48.5 [facility] Comment: Called by: ashley, Read back by: Claire Schwartz, Date/Time:12/13/23 01:52. Corrected from 42.1 % on 12/13/23 1:54:17 EST by Merlin Kenney Mean Cell Volume Clotted 82.9 - 93.1 [facility] Comment: Called by: ashley, Read back by: Claire Schwartz, Date/Time:12/13/23 01:52. Corrected from 84.0 fL on 12/13/23 1:54:17 EST by Merlin Kenney Mean Cell Hemoglobin Clotted 27.5 - 32.1 [facility] Comment: Called by: ashley, Read back by: Claire Schwartz, Date/Time:12/13/23 01:52. Corrected from 28.9 pg on 12/13/23 1:54:17 EST by Merlin Kenney Mean Cell Hemoglobin Concentration Clotted 32.0 - 35.7 [facility] Comment: Called by: ashley, Read back by: Claire Schwartz, Date/Time:12/13/23 01:52. Corrected from 34.4 g/dL on 12/13/23 1:54:17 EST by Merlin Kenney Platelet Clotted 145 - 357 [facility] Comment: Called by: ashley, Read back by: Claire Schwartz, Date/Time:12/13/23 01:52. Corrected from 251 x10(3)/mcL on 12/13/23 1:54:17 EST by Merlin Kenney RDW Standard Deviation Clotted 36.0 - 45.0 [facility] Comment: Called by: ashley, Read back by: Claire Schwartz, Date/Time:12/13/23 01:52. Corrected from 38.2 fL on 12/13/23 1:54:17 EST by Merlin Kenney RDW coefficient of variation Clotted 11.4 - 13.8 [facility] Comment: Called by: ashley, Read back by: Claire Schwartz, Date/Time:12/13/23 01:52. Corrected from 12.6 % on 12/13/23 1:54:17 EST by Merlin Kenney Mean Platelet Volume Clotted 7.6 - 12.9 [facility] Comment: Called by: ashley, Read back by: Claire Schwartz, Date/Time:12/13/23 01:52. Corrected from 10.5 fL on 12/13/23 1:54:17 EST by Merlin Kenney NRBC% auto Clotted [facility] Comment: Called by: ashley, Read back by: Claire Schwartz, Date/Time:12/13/23 01:52. Corrected from 0.0 % [NA] on 12/13/23 1:54:17 EST by Merlin Kenney NRBC Absolute Clotted 0.000 - 0.000 [facility] Comment: Called by: ashley, Read back by: Claire Schwartz, Date/Time:12/13/23 01:52. Corrected from 0.000 x10(3)/mcL on 12/13/23 1:54:17 EST by Merlin Kenney Blood 12/13/2023 12:3 4 AM EST 12/13/2023 1:02 AM EST Narrative Resulting Agency Comment Spec In Lab Dorys Cardoza MD HEMATOLOGY ORDERABLE S Performing Organization Address [facility] Co de Phone Number [facility] [place] [address] * Beta Hydroxybutyrate (12/13/2023 12:34 AM EST) Beta-hydroxybuturat e 0.18 0.00 - 0.30 mmol/L [facility] Comment: This test has not been cleared by the US FDA. Performance characteristics of this test were determined by [facility] in accordance with CLIA requirements. This laboratory is qualified under CLIA to perform high-complexity testing. Blood 12/13/2023 12:3 4 AM EST 12/13/2023 1:02 AM EST Narrative Resulting Agency Comment Spec In Lab Frances Eisenberg MD CHEMISTRY ORDERABLES Performing Organization Address [facility] Co de Phone Number [facility] [place] [address] * (ABNORMAL) Basic Metabolic Panel (non-fasting) (12/13/2023 12:34 AM EST) Glucose 189 65 - 199 mg/dL [facility] Comment:Diabetes: >=200 mg/d L plus symptoms Blood Urea Nitrogen 26(H) 10 - 20 mg/dL [facility] Creatinine 1.48 0.80 - 1.50 mg/dL [facility] Sodium 140 135 - 145 mmol/L [facility] Potassium 4.1 3.5 - 5.0 mmol/L [facility] Comment: Please note: ??Patients with WBC >100,000 may have falsely elevated Potassium levels. ??For accurate Potassium quantification in these patients send serum separator tube (gold top) for subsequent determinations. ??Contact the Clinical Chemistry Laboratory if there are any questions. Chloride 104 98 - 107 mmol/L [facility] Carbon Dioxide 19(L) 22 - 31 mmol/L [facility] Anion Gap 17(H) 5 - 15 mmol/L [facility] Calcium 8.1(L) 8.5 - 10.5 mg/dL [facility] Est Glomerular Filtration Rate 53(L) >=60 mL/min/1. 73 m?? [facility] Comment: This patient's estimated GFR [...] Eisenberg MD CHEMISTRY ORDERABLES Performing Organization Address [facility] de Phone Number [facility] [place] [address] * (ABNORMAL) Hemoglobin A1c (12/13/2023 12:34 AM EST) Hemoglobin A1c 10.0(H) 4.3 - 5.6 % [facility] Comment: Reference Range: 4.3 - 5.6% [...] Mellitus, Diabetes Care 2013; 36: Suppl. 1, T01-42 Estimated Average Glucose 241 mg/dL [facility] Blood 12/13/2023 12:3 4 AM EST 12/13/2023 1:02 AM EST Narrative Resulting Agency Comment Spec In Lab Frances Eisenberg MD CHEMISTRY ORDERABLES Performing Organization Address [facility] Co de Phone Number [facility] [place] [address] * (ABNORMAL) Hepatic Function Panel (12/13/2023 12:34 AM EST) Protein, Total 6.4 6.1 - 8.0 g/dL [facility] Albumin 3.9 3.2 - 5.2 g/dL [facility] Aspartate Aminotransferase 671(H) 0 - 39 unit/L [facility] Alanine Aminotransferase 109(H) 0 - 55 unit/L [facility] Alkaline Phosphatase 55 40 - 130 unit/L [facility] Bilirubin, Total 1.3 0.2 - 1.3 mg/dL [facility] Bilirubin, Direct 0.2 0.0 - 0.3 mg/dL [facility] Blood 12/13/2023 12:3 4 AM EST 12/13/2023 1:02 AM EST Narrative Resulting Agency Comment Spec In Lab Frances Eisenberg MD CHEMISTRY ORDERABLES Performing Organization Address [facility] Co de Phone Number [facility] [place] [address] * TSH (12/13/2023 12:34 AM EST) [facility] Thyroid Stimulating Hormone 0.32 0.27 - 4.20 mcIU/mL [facility] Comment: Reference Interval (mcIU/mL): Females: ??First Trimester: 0.23-3.88 ??Second Trimester: 0.22-3.90 ??Third Trimester: 0.44-4.66 Blood 12/13/2023 12:3 4 AM EST 12/13/2023 1:02 AM EST Narrative Resulting Agency Comment Spec In Lab Frances Eisenberg MD CHEMISTRY ORDERABLES Performing Organization Address City/[facility] Co de Phone Number [facility] [place] [address] * (ABNORMAL) POCT Glucose (12/12/2023 11:26 PM EST) Glucose, POC 208(H) 65 - 199 mg/dL [facility] Comment: Supplemental ranges: <140 mg/dL before meals <180 mg/dL all other times of the day Blood 12/12/2023 11:2 6 PM EST 12/12/2023 11:26 PM EST Frances Eisenberg MD POINT OF CARE TEST O GERTRUDIS Performing Organization Address City/[facility] Co de Phone Number [facility] [place] [address] * Potassium (12/12/2023 10:14 PM EST) Potassium 3.8 3.5 - 5.0 mmol/L [facility] Comment: result rechecked-[facility] Please note: ??Patients with WBC >100,000 may have falsely elevated Potassium levels. ??For accurate Potassium quantification in these patients send serum separator tube (gold top) for subsequent determinations. ??Contact the Clinical Chemistry Laboratory if there are any questions. Blood 12/12/2023 10:1 4 PM EST 12/12/2023 10:23 PM EST Narrative Resulting Agency Comment Spec In Lab Frances Eisenberg MD CHEMISTRY ORDERABLES Performing Organization Address [facility] Co de Phone Number [facility] [place] [address] * (ABNORMAL) POCT Glucose (12/12/2023 10:06 PM EST) Glucose, POC 250(H) 65 - 199 mg/dL [facility] Comment: Supplemental ranges: <140 mg/dL before meals <180 mg/dL all other times of the day Blood 12/12/2023 10:0 6 PM EST 12/12/2023 10:06 PM EST Frances Eisenbegr MD POINT OF CARE TEST O GERTRUDIS Performing Organization Address [facility] Co de Phone Number [facility] [place] [address] * (ABNORMAL) POCT Glucose (12/12/2023 9:14 PM EST) Glucose, POC 361(H) 65 - 199 mg/dL [facility] Comment: Supplemental ranges: <140 mg/dL before meals <180 mg/dL all other times of the day Blood 12/12/2023 9:14 PM EST 12/12/2023 9:14 PM EST Frances Eisenberg MD POINT OF CARE TEST O GERTRUDIS Performing Organization Address [facility] de Phone Number [facility] [place] [address] * (ABNORMAL) POCT Glucose (12/12/2023 8:12 PM EST) Glucose, POC 426(H) 65 - 199 mg/dL [facility] Comment: Supplemental ranges: <140 mg/dL before meals <180 mg/dL all other times of the day Blood 12/12/2023 8:12 PM EST 12/12/2023 8:12 PM EST Frances Eisenberg MD POINT OF CARE TEST O GERTRUDIS Performing Organization Address [facility] de Phone Number [facility] [place] [address] * (ABNORMAL) Basic Metabolic Panel (non-fasting) (12/12/2023 8:00 PM EST) Glucose 428(H) 65 - 199 mg/dL [facility] Comment:Diabetes: >=200 mg/d L plus symptoms Blood Urea Nitrogen 23(H) 10 - 20 mg/dL [facility] Creatinine 1.48 0.80 - 1.50 mg/dL [facility] Sodium 133(L) 135 - 145 mmol/L [facility] Potassium 7.4(Criti preston) 3.5 - 5.0 mmol/L [facility] Comment: ?? result rechecked-HOLLIE, Called by: HOLLIE, Read back by: ARTUR EL, Date/Time:12/12/23 21:55. Please note: ??Patients with WBC >100,000 may have falsely elevated Potassium levels. ??For accurate Potassium quantification in these patients send serum separator tube (gold top) for subsequent determinations. ??Contact the Clinical Chemistry Laboratory if there are any questions. Chloride 99 98 - 107 mmol/L [facility] Carbon Dioxide 16(L) 22 - 31 mmol/L [facility] Anion Gap 18(H) 5 - 15 mmol/L [facility] Calcium 8.1(L) 8.5 - 10.5 mg/dL [facility] Est Glomerular Filtration Rate 53(L) >=60 mL/min/1. 73 m?? [facility] Comment: This patient's estimated GFR [...] In Lab Frances Eisenberg MD CHEMISTRY ORDERABLES [facility] [place] [address] * (ABNORMAL) Phosphorus (12/12/2023 8:00 PM EST) Phosphorus 4.8(H) 2.5 - 4.5 mg/dL [facility] Blood 12/12/2023 8:00 PM EST 12/12/2023 8:28 PM EST Narrative Resulting Agency Comment Spec In Lab Frances Eisenberg [place] [address] * (ABNORMAL) Magnesium (12/12/2023 8:00 PM EST) Magnesium 0.66(L) 0.69 - 1.07 mmol/L [facility] Blood 12/12/2023 8:00 PM EST 12/12/2023 8:28 PM EST Narrative Resulting Agency Comment Spec In Lab Frances Eisenberg MD CHEMISTRY ORDERABLES Performing Organization Address [facility] Co de Phone Number [facility] [place] [address] * (ABNORMAL) POCT Glucose (12/12/2023 7:23 PM EST) Glucose, POC 463(H) 65 - 199 mg/dL [facility] Comment: Supplemental ranges: <140 mg/dL before meals <180 mg/dL all other times of the day Blood 12/12/2023 7:23 PM EST 12/12/2023 7:23 PM EST Frances Eisenberg MD POINT OF CARE TEST O RDERABLES Performing Organization Address [facility] de Phone Number [facility] [place] [address] * CARDIAC CATHETERIZATION (12/12/2023 7:06 PM EST) Anatomical Region Laterality Modality Other Narrative 12/13/2023 9:54 AM EST ?[facility] ? Cardiac Catheterization/Intervention Report ? Patient Name: Stephen, Martín Tracy. ? Procedure Date: 12/12/2023 ? A #: [id number] ? Primary Physician: Sergey Nava ? Case #: [id number] ? File Name: [id number] ? Catheterization Order Number: [id number] ? [facility] ? Final Report [place], [place] ? Patient Name: ? Martín D. Stephen ? ID#: ?[id number] ? : ?1960 ? Procedure Date: ? December 12, 2023 ? Case #: ? [id number] ? Room: ? 5 ? Case Physician: [...] was ?designated as ASA Class IV. The HA clinical frailty scale is 4: ?Vulnerable. ? Diagnostic Tests: ?Electrocardiography: ? EKG was assessed by ECG. EKG was Abnormal. EKG showed ST Deviation ? >= 0.5 mm. ?Medications Prior to Procedure: ? Aspirin, Angiotensin II Receptor Jeimy, Calcium Channel Blocking ? Agent and Thrombolytic (any). ? Indications for Diagnostic Cath: ?The priority of the diagnostic procedure was Emergent. The indication for ?the cork slabs sawyer visit is ACS less than or equal [...] 3.5 guiding catheter and a 3.5 Fr [place] 20 Mhz using ?Manual pullback. ??Imaging was [...] ? A premounted 4.00 x 22 mm [place] (DYANA) was deployed ? with a maximum [...] may require ?modification of this regimen. Consult [facility] Interventional Cardiology for ?questions. ?The 1 year [...] against any medical treatment. Consult ?http://tools.acc.org/DAPTriskapp/#!/content/calculator/ or [facility] ?Interventional Cardiology for questions ? Conclusions: ?* [...] Procedure Note Sergey Nava MD - 01/08/2024 [facility] Cardiac Catheterization/Intervention Report Patient Name: Martín Alvarado Procedure Date: 12/12/2023 A #: [id number] Primary Physician: Sergey Nava Case #: [id number] File Name: [id number] Catheterization Order Number: [id number] [facility] FinalReport [place], [place] Patient Name: Martín Alvarado ID#:[id number] :1960 Procedure Date: December 12, 2023 Case [...] was designated as ASA Class IV. The [facility] clinical frailty scale is 4: Vulnerable. Diagnostic Tests: Electrocardiography: EKG was assessed by ECG. EKG was Abnormal. EKG showed STDeviation >= 0.5 mm. Medications Prior to Procedure: Aspirin, Angiotensin II Receptor Jeimy, Calcium ChannelBlocking Agent and Thrombolytic (any). Indications for Diagnostic Cath: The priority of the diagnostic procedure was Emergent. Theindication for the cork slabs sawyer visit is ACS less than or equal [...] 3.5 guiding catheter and a 3.5 Fr [place] 20 Mhzusing Manual pullback. Imaging was successful. [...] priority for the procedure was Emergent.The [facility] indication for the procedure was [...] The lesion was predilated with a 2.50mm [id number] MM balloon with a maximum inflation pressure of 15atmospheres. A premounted 4.00 x 22 mm [place] (DYANA) wasdeployed with a maximum inflation pressure [...] situation mayrequire modification of this regimen. Consult [facility] Interventional Cardiologyfor questions. The 1 year bleeding [...] or against any medical treatment.Consult http://tools.acc.org/DAPTriskapp/#!/content/calculator/ or [facility] Interventional Cardiology for questions Conclusions: * Three [...] EKG 12 Lead (12/12/2023 7:04 PM EST) Ventricular rate 92 BPM MUSE SYSTEM Atrial Rate 92 BPM MUSE SYSTEM P-R Interval 232 ms MUSE SYSTEM QRS Duration 138 ms MUSE SYSTEM Q-T Interval 420 ms MUSE SYSTEM QTC Calculated (Bezet) 519 ms MUSE SYSTEM Calculated P [place] 58 degrees MUSE SYSTEM Calculated R [place] 0 degrees MUSE SYSTEM Calculated T [place] 125 degrees MUSE SYSTEM INTERPRETATION Sinus rhythm with 1st degree A-V block ACUTE [place] / STEMI ST elevation in inferior and posterior leads Abnormal ECG No previous ECGs available Confirmed by MD MALGORZATA, ABRAM ([id number]) on 12/13/2023 10:29:21 AM MUSE SYSTEM 12/12/2023 7:04 PM EST 12/13/2023 10:29 AM EST Frances Eisenberg MD ECG ORDERABLES MUSE SYSTEM * (ABNORMAL) Differential, Automated (12/12/2023 6:30 PM EST) Pathologist [facility] Neutrophil % 82.5 % [facility] Neutrophil Absolute 17.78(H) 1.70 - 6.10 x10(3)/mc L [facility] Lymph % 12.0 % [facility] Lymphocytes Abs 2.6 0.9 - 3.2 x10(3)/mc L [facility] Monocyte % 4.5 % [facility] Monocyte Abs 1.0(H) 0.3 - 0.9 x10(3)/mc L [facility] Eos % 0.0 % [facility] Eosinophils Abs 0.0 0.0 - 0.4 x10(3)/mc L [facility] Basophil % 0.1 % [facility] Baso Absolute 0.0 0.0 - 0.1 x10(3)/mc L [facility] Immature Gran % 0.90 % [facility] Comment: Immature granulocytes(IG's)percentage and absolute count will include metamyelocytes, myelocytes, and promyelocytes. Blood smears from CBCs yielding IG's will be scanned manually for concordance. If this scan disagrees with the automated IG or if promyelocytes are noted, a manual differential will be performed. Immature Gran Absolute 0.19(H) 0.00 - 0.04 x10(3)/mc L [facility] Blood 12/12/2023 6:30 PM EST 12/12/2023 6:40 PM EST Narrative Resulting Agency Comment Spec In Lab Sergey Nava MD HEMATOLOGY ORDERABLE S Performing Organization Address City/[facility] Co de Phone Number [facility] [place] [address] * (ABNORMAL) Hemogram (12/12/2023 6:30 PM EST) White Blood Cell 21.6(H) 4.0 - 9.5 x10(3)/mc L [facility] Red Blood Cell 4.89 4.58 - 5.54 x10(6)/mc L [facility] Hemoglobin 14.2 13.7 - 16.5 g/dL [facility] Hematocrit 41.4 40.5 - 48.5 % [facility] Mean Cell Volume 84.7 82.9 - 93.1 fL [facility] Mean Cell Hemoglobin 29.0 27.5 - 32.1 pg [facility] Mean Cell Hemoglobin Concentration 34.3 32.0 - 35.7 g/dL [facility] Platelet 331 145 - 357 x10(3)/mc L [facility] RDW Standard Deviation 37.8 36.0 - 45.0 fL [facility] RDW coefficient of variation 12.5 11.4 - 13.8 % [facility] Mean Platelet Volume 10.6 7.6 - 12.9 fL [facility] NRBC% auto 0.0 % [facility] NRBC Absolute 0.000 0.000 - 0.000 x10(3)/mc L [facility] Blood 12/12/2023 6:30 PM EST 12/12/2023 6:40 PM EST Narrative Resulting Agency Comment Spec In Lab Sergey Nava MD HEMATOLOGY ORDERABLE S Performing Organization Address City/[facility]/ZIP Co de Phone Number [facility] [place] [address] * (ABNORMAL) Beta Hydroxybutyrate (12/12/2023 6:30 PM EST) Beta-hydroxybuturat e 2.09(H) 0.00 - 0.30 mmol/L [facility] Comment: This test has not been cleared by the US FDA. Performance characteristics of this test were determined by [facility] in accordance with CLIA requirements. This laboratory is qualified under CLIA to perform high-complexity testing. Blood 12/12/2023 6:30 PM EST 12/12/2023 6:40 PM EST Narrative Resulting Agency Comment Spec In Lab Sergey Nava MD CHEMISTRY ORDERABLES [facility] [place] [address] * (ABNORMAL) Lactate, whole blood, send to lab ([facility]) (12/12/2023 6:30 PM EST) [facility] Lactate WB 3.8(H) 0.5 - 2.2 mmol/L [facility] Blood 12/12/2023 6:30 PM EST 12/12/2023 6:40 PM EST Narrative Resulting Agency Comment Spec In Lab Sergey Nava MD CHEMISTRY ORDERABLES Performing Organization Address City/[facility]/ZIP Co de Phone Number [facility] [facility] [place] [address] * (ABNORMAL) BMP w/fasting Glucose (12/12/2023 6:30 PM EST) Pathologist [facility] Glucose Fasting 555(Criti preston) 65 - 99 mg/dL [facility] Comment: Called by: HOLLIE, Read back by: CLAIRE SCHWARTZ, Date/Time:12/12/23 20:19. [...] of Diabetes Mellitus, Position Statement from the [employer]. ??Diabetes Care, Volume 33, Supplement 1, Nov 2009 Blood Urea Nitrogen 24(H) 10 - 20 mg/dL [facility] Creatinine 1.72(H) 0.80 - 1.50 mg/dL [facility] Sodium 132(L) 135 - 145 mmol/L [facility] Potassium 3.8 3.5 - 5.0 mmol/L [facility] Comment: Please note: ??Patients with WBC >100,000 may have falsely elevated Potassium levels. ??For accurate Potassium quantification in these patients send serum separator tube (gold top) for subsequent determinations. ??Contact the Clinical Chemistry Laboratory if there are any questions. Chloride 96(L) 98 - 107 mmol/L [facility] Carbon Dioxide 14(L) 22 - 31 mmol/L [facility] Anion Gap 22(H) 5 - 15 mmol/L [facility] Calcium 8.0(L) 8.5 - 10.5 mg/dL [facility] Est Glomerular Filtration Rate 45(L) >=60 mL/min/1. 73 m?? [facility] Comment: This patient's estimated GFR [...] In Lab Sergey Nava MD CHEMISTRY ORDERABLES [facility] [place] [address] * (ABNORMAL) POCT Glucose (12/12/2023 6:18 PM EST) Glucose, POC 562(Critic al) 65 - 199 mg/dL [facility] Comment: Supplemental ranges: <140 mg/dL before meals <180 mg/dL all other times of the day Blood 12/12/2023 6:18 PM EST 12/12/2023 6:18 PM EST Frances Eisenberg MD POINT OF CARE TEST O RDERABLES [facility] [place] [address] documented in this encounter Visit Diagnoses Not [...] 81 mg, Oral, DAILY, First dose on Marcelle [...] PRN, Starting on Sun12/12/23 at 1831, Until Sun /4/24 at 1849, For BG 50-70 mg/dL: Oral [...] before administering the next dose. furosemide (Lasix) tablet 40 mg 40 mg, [...] Marcelle 12/13/23 at 0915, Until Discontinued, Routine Given 12/16/2023 [...] EVERY 4 HOURS SCHEDULED, First dose on 12/15/23 at 0015, Until Discontinued, CORRECTION BOLUS [2-12 [...] Given 12/16/2023 12:33 AM EST 6 Units ipratropium-albuteroL (Duoneb) 0.5 mg-3 mg(2.5 mg base)/3 mL nebulizer solution 3 mL 3 mL, Nebulization, 4 TIMES DAILY PRN, Starting on Sun12/13/23 at 1136, Until 12/16/23 at 1849, Wheezing, [...] Given 12/16/2023 12:33 AM EST 25 mg olodateroL (Striverdi Respimat) inhaler 2 puff 2 [...] PRN, Starting on Sun12/12/23 at 2049, Until 12/16/23 at 1849, hypokalemia, Administer for [...] on Marcelle 12/13/23 at 0900, Until Discontinued, Must be primed [...] 81 mg, Oral, DAILY, First dose on Marcelle [...] 0828 (Given - Provider: Kimberly Colorado RN) furosemide (Lasix) (10 mg/mL) injection 80 [...] Discontinued, Routine 0529 (Given - Provider: Colleen Vargas, RN)1453 (Given - Provider: Emily Eckert RN)2222 (Given - Provider: Colleen Vargas, RN) 0609 (Given - Provider: Colleen Vargas, RN)1514 (Given - Provider: Emily Eckert RN - Comment: ambulatin lucia unit) 0033 (Given - Provider: Anthony Escalante, CAROL)0630 (Given - Provider: Anthony Escalante, RN)1400 (Not Given - Provider: Kimberly Colorado RN [...] and lispro correction is added. , Routine 1727 (Given - Provider: Emily Eckert RN) 165 (Given - Provider: Emily Eckert RN) insulin glargine-ygfn (Semglee) (100 unit/mL) subcutaneous injection vial 60 Units 60 Units, Subcutaneous, DAILY, First dose on Sun12/15/23 at 0900, Until Discontinued, Routine 08 (Given - Provider: Emily Eckert RN) 08 (Given - Provider: Kimberly Colorado, CAROL) insulin lispro (HumaLOG;Admelog) (100 unit/mL) subcutaneous injection vial 0-25 Units (CANCELED) 0-25 Units, Subcutaneous, 3 TIMES DAILY WITH MEALS, First dose (after last modification) on Sun12/13/23 at 1700, Until Discontinued, MEAL ASSOCIATED Give 1 unit for every 3 grams carbohydrate. Hold if not eating or if BG less than 70 mg/dL. , Routine 08 (Given - Provider: Emily [...] Eckert RN)1237 (Given - Provider: Emily Eckert RN)165 (Given - Provider: Emily Eckert RN) 08 (Given - Provider: Kimberly Colorado, CAROL)123 (Given - Provider: Kimberly Colorado, CAROL) insulin [...] Emily Eckert RN)2059 (Given - Provider: Anthony Escalante, CAROL) 0033 (Given - Provider: Anthony Escalante RN)0400 (Not Given - Provider: Anthony Escalante RN - Reason: Order parameters not met)0824 (Given - Provider: Kimberly Colorado, CAROL)1231 (Given - Provider: Kimberly Colorado, CAROL)1600 (Not Given - Provider: Kimberly Colorado RN [...] SBP<90, Routine 0828 (Given - Provider: Kimberly Colorado, CAROL) metoprolol tartrate (Lopressor) tablet 12.5 mg (CANCELED) [...] Escalante, CAROL)0630 (Given - Provider: Anthony Escalante, CAROL)1230 (Given - Provider: Kimberly Colorado, CAROL) olodateroL [...] Emily Eckert RN)2100 (Given - Provider: Colleen Vargas, CAROL) 0811 (Given - Provider: Emily Eckert RN)2100 (Given - Provider: Anthony Escalante, CAORL) 0833 (Given - Provider: Kimberly Colorado, CAROL) sodium chloride 0.9 % (flush) (BD PosiFlush Normal Saline 0.9) flush 5 mL 5 mL, Intravenous, 2 TIMES DAILY, First dose on Sun12/12/23 at 2215, Until Discontinued, Routine 0831 (Given - Provider: Emily Eckert RN)2100 (Given - Provider: Colleen Vargas, CAROL) 0811 (Given - Provider: Emily Eckert RN)2100 [...] , Routine 1132 (Given - Provider: Emily Eckert, RN) 0811 (Given - Provider: Emily Eckert, RN) 0830 (Given - Provider: Kimberly Colorado [...] RN)1923 (Rate/Dose Change - Provider: Colleen Vargas RN)2024 (Rate/Dose Change - Provider: Colleen Vargas RN)2117 (Rate/Dose Change - Provider: Colleen Vargas RN)2222 (Rate/Dose Change - Provider: Colleen Vargas RN)2326 (Hold - Provider: Colleen Vargas RN - [...] dose, Starting on Sun12/12/23 at 2128, Until Sun12/16/23 at 1849, for discomfort with PIV insertion, Routine nitroGLYcerin (Nitrostat) disintegrating tablet 0.4 mg 0.4 mg, Sublingual, EVERY 5 MIN PRN, Starting on Sun12/12/23 at 2128, Until Sun12/16/23 at 1849, Chest pain, May repeat every [...] PRN, Starting on Sun12/12/23 at 2049, Until 12/16/23 at 1849, hypokalemia, Administer for [...] on Sun12/12/23 at 2048, Until 12/16/23 at 1848, hypokalemia, Administer for serum potassium (mMol/L) of [...] Routine documented in this encounter Care Teams Computer Programmer Relationship Specialty Start Date End Date Leo Alegre DO [address] [place] [address] PCP - General Family Medicine 03/03/21 documented as of this encounter
--- OUTSIDE RECORDS SUMMARY | 2024-06-18 14:58 | XMS_ITS | Encounter Summary ---
Author Organization [facility] [place] [address] Care Team Providers Care Property Claims Adjuster Name Role Phone Leo Alegre DO Primary Care Provider +1- [phone] Reason for Visit * Reason Comments Medication Refill Encounter Details Date Type Department Care Team (Late st Contact Info) Description 07/28/2022 Refill Nephrology Hypertension at [place] [phone] Hardik Dailey MD [facility] [place] [address] Social History Tobacco Use Types Packs/Day Years [...] 3:00 PM EDT Office Visit Endocrinology at [place] [phone] Leo Flor MD [facility] [place] [address] 08/12/2024 3:40 PM EDT Office Visit Pulmonology at [place] [phone] Siva Harrison MD [facility] [place] [address] 09/18/2024 1:00 PM EST Office Visit Cardiology at [address] [phone] Jj Davis MD [facility] [place] [address] documented as of this encounter Visit Diagnoses Not on filedocumented in this encounter Care Teams Property Claims Adjuster Relationship Specialty Start Date End Date Leo Alegre DO [address] [place] [address] PCP - General Family Medicine 03/03/21 documented as of this encounter
--- OUTSIDE RECORDS SUMMARY | 2024-06-18 14:58 | XMS_ITS | Encounter Summary ---
Author Organization [facility] [place] [address] Care Team Providers Care Sack Sorter Name Role Phone Leo Alegre DO Primary Care Provider +1- [phone] Encounter Details Date Type Department Care Team (Late st Contact Info) Description 08/13/2023 Telephone Pulmonology at [place] [phone] Lizbet Gray Social History Tobacco Use Types [...] EDT Office Visit Endocrinology at [place] [phone] Leo Flor MD [facility] [place] [address] 08/12/2024 3:40 PM EDT Office [place] [phone] Siva Harrison MD [facility] [place] [address] 09/18/2024 1:00 PM EST Office Visit Cardiology at [place] [phone] Jj Davis MD [facility] [address] documented as of this encounter Visit Diagnoses Not on filedocumented in this encounter Care Teams Sack Sorter Relationship Specialty Start Date End Date Leo Alegre DO [address] [place] [address] PCP - General Family Medicine 03/03/21 documented as of this encounter
--- OUTSIDE RECORDS SUMMARY | 2024-06-18 14:58 | XMS_ITS | Encounter Summary ---
Author Organization [facility] [place] [address] Care Team Providers Care Rehab Aide Name Role Phone Leo Alegre DO Primary Care Provider +1- [phone] Reason for Visit * Reason Comments Medication Refill Encounter Details Date Type Department Care Team (Late st Contact Info) Description 02/17/2022 Refill Nephrology Hypertension at [place] [phone] Hardik Dailey MD [facility] [address] Social History Tobacco Use Types Packs/Day Years [...] 3:00 PM EDT Office Visit Endocrinology at [place] [phone] Leo Flor MD [facility] [place] [address] 08/12/2024 3:40 PM EDT Office Visit Pulmonology at [place] [phone] Siva Harrison MD [facility] [place] [address] 09/18/2024 1:00 PM EST Office Visit Cardiology at [address] [phone] Jj Davis MD [facility] [place] [address] documented as of this encounter Visit Diagnoses Not on filedocumented in this encounter Care Teams Rehab Aide Relationship Specialty Start Date End Date Leo Alegre DO [address] [place] [address] PCP - General Family Medicine 03/03/21 documented as of this encounter
--- OUTSIDE RECORDS SUMMARY | 2024-06-18 14:58 | XMS_ITS | Encounter Summary ---
Author Organization [facility] [place] [address] Care Team Providers Care Welder/Installer Name Role Phone Leo Alegre DO Primary Care Provider +1- [phone] Encounter Details Date Type Department Care Team (Late st Contact Info) Description 08/02/2023 Orders [place] [phone] Siva Harrison MD [facility] [address] Pulmonary emphysema, unspecified emphysema type (Primary Dx) Social History Tobacco Use Types Packs/Day Years [...] 3:00 PM EDT Office [place] [phone] Leo Flor MD [facility] [place] [address] 08/12/2024 3:40 PM EDT Office [place] [phone] Siva Harrison MD [facility] [address] 09/18/2024 1:00 PM EST Office Visit Cardiology at [address] [phone] Jj Davis MD [facility] [place] [address] documented as of this encounter Results * XR Chest PA & Lateral (Generic) (09/14/2023 11:43 AM EDT) Anatomical Region Laterality Modality Chest N/A Digital Radiogra phy Impressions 09/14/2023 2:24 PM EDT Findings compatible with emphysema I have personally reviewed the image(s) and the resident's interpretation and agree with the findings, Jj Wray MD at 09/14/2023 2:24 PM Thank you for letting us participate in the care of this patient. ??If you are a health care provider and have any questions regarding this report, please contact the number below. ??For patients who have questions please contact the health director of health care marketing that requested your imaging first. ? Narrative 09/14/2023 2:24 PM EDT EXAMINATION: XR CHEST PA AND LATERAL (GENERIC) CLINICAL HISTORY: emphysema TECHNIQUE: PA and lateral views of the chest COMPARISON: None FINDINGS: The cardiac silhouette is normal in size with tortuous aorta. Diffuse narrowing of the trachea from a level above the clavicles suggestive of saber-sheath trachea. No pneumothorax or effusion. The lungs are hyperinflated with attenuation of vasculature in the upper lobes, right greater than left.. Procedure Note Jj Wray MD - 09/14/2023 EXAMINATION: XR CHEST PA AND LATERAL (GENERIC) CLINICAL HISTORY: emphysema TECHNIQUE: PA and lateral views of the chest COMPARISON: None FINDINGS: The cardiac silhouette is normal in size with tortuous aorta. Diffusenarrowing of the trachea from a level above the clavicles suggestive ofsaber-sheath trachea. No pneumothorax or effusion. The lungs are hyperinflated with attenuationof vasculature in the upper lobes, right greater than left.. IMPRESSION Findings compatible with emphysema I have personally reviewed the image(s) and the resident's interpretationand agree with the findings, Jj Wray MD at 09/14/2023 2:24 PM Thank you for letting us participate in the care of this patient. If youare a health care provider and have any questions regarding this report,please contact the number below. For patients who have questions please contactthe health director of health care marketing that requested your imaging first. Siva Yen MD IMG DX ORDERABLES documented in this encounter Visit Diagnoses Diagnosis Pulmonary emphysema, unspecified emphysema type- Primary Pulmonary emphysema, unspecified emphysema type documented in this encounter Care Teams Welder/Installer Relationship Specialty Start Date End Date Leo Alegre DO [address] [place] [address] PCP - General Family Medicine 03/03/21 documented as of this encounter
--- OUTSIDE RECORDS SUMMARY | 2024-06-18 14:58 | XMS_ITS | Encounter Summary ---
Author Organization [facility] [place] [address] Care Team Providers Care Nurse Navigator Name Role Phone Leo Alegre DO Primary Care Provider +1- [phone] Reason for Visit * Reason Comments Medication Refill Encounter Details Date Type Department Care Team (Late st Contact Info) Description 03/01/2022 Refill Nephrology Hypertension at [place] [phone] Hardik Dailey MD [facility] [address] Social History Tobacco Use Types Packs/Day Years [...] EDT Office Visit Endocrinology at [place] [phone] Leo Flor MD [facility] [place] [address] 08/12/2024 3:40 PM EDT Office Visit Pulmonology at [place] [phone] Siva Harrison MD [facility] [place] [address] 09/18/2024 1:00 PM EST Office Visit Cardiology at [address] [phone] Jj Davis MD [facility] [place] [address] documented as of this encounter Visit Diagnoses Not on filedocumented in this encounter Care Teams Nurse Navigator Relationship Specialty Start Date End Date Leo Alegre DO [address] [place] [address] PCP - General Family Medicine 03/03/21 documented as of this encounter
--- OUTSIDE RECORDS SUMMARY | 2024-06-18 14:58 | XMS_ITS | Encounter Summary ---
Author Organization [facility] [place] [address] Care Team Providers Care Metal Molder Name Role Phone Leo Alegre DO Primary Care Provider +1- [phone] Reason for Visit * Reason Comments Medication Refill Encounter Details Date Type Department Care Team (Late st Contact Info) Description 03/30/2022 Refill Nephrology Hypertension at [place] [phone] Hardik Dailey MD [facility] [place] [address] Social History Tobacco Use Types Packs/Day Years Used Date Smoking Tobacco: Never Smokeless Tobacco: Never Sex and Gender Information Value Date Recorded Sex Assigned at Not on file Gender Identity Not on file Sexual Orientation Not on file documented as of this encounter Plan of Treatment Upcoming Encounters Date Type Department Care Team (Late Contact Info) Description 07/02/2024 3:00 PM EDT Office Visit Endocrinology at [place] [phone] Leo Flor MD [facility] [place] [address] 08/12/2024 3:40 PM EDT Office Visit Pulmonology at [place] [phone] Siva Harrison MD [facility] [place] [address] 09/18/2024 1:00 PM EST Office Visit Cardiology at [address] [address] Jj Davis MD [facility] [place] [address] documented as of this encounter Visit Diagnoses Not on filedocumented in this encounter Care Teams Metal Molder Relationship Specialty Start Date End Date Leo Alegre DO [address] [place] [address] PCP - General Family Medicine 03/03/21 documented as of this encounter
--- OUTSIDE RECORDS SUMMARY | 2024-06-18 14:58 | XMS_ITS | Encounter Summary ---
Author Organization [facility] [place] [address] Care Team Providers Care Liquor Bridge Operator Name Role Phone Leo Alegre DO Primary Care Provider +1- [phone] Encounter Details Date Type Department Care Team (Latest Contact Info) Description 07/23/2023 Interpretation [place] [phone] Shiraz Cherry MD [facility] [place] [address] Dyspnea on exertion Social History Tobacco Use Types Packs/Day Years Used Date Smoking Tobacco: Never Smokeless Tobacco: Never Sex and Gender Information Value Date Recorded Sex Assigned at Not on file Gender Identity Not on file Sexual Orientation Not on file documented as of this encounter Procedure Notes * Shiraz Cherry MD - 07/23/2023 11:14 AM EDT See scanned data and interpretation performed remotely at [facility]. This encounter for billing only Spirometry with bronchodilator, DLCO, and Lung Volumes Shiraz Cherry MD, PhD Staff Physician Pulmonary and Critical Care Medicine documented in this encounter Plan of Treatment Upcoming Encounters Date Type Department Care Team (Late st Contact Info) Description 07/02/2024 3:00 PM EDT Office [place] [phone] Leo Flor MD [facility] [place] [address] 08/12/2024 3:40 PM EDT Office [place] [phone] Siva Harrison MD [facility] [place] [address] 09/18/2024 1:00 PM EST Office Visit Cardiology at [address] [phone] Jj Davsi MD [facility] [place] [address] documented as of this encounter Visit Diagnoses Diagnosis Dyspnea on exertion Other dyspnea and respiratory abnormality documented in this encounter Care Teams Liquor Bridge Operator Relationship Specialty Start Date End Date Leo Alegre DO [address] [place] [address] PCP - General Family Medicine 03/03/21 documented as of this encounter
--- OUTSIDE RECORDS SUMMARY | 2024-06-18 14:58 | XMS_ITS | Encounter Summary ---
Author Organization [facility] [place] [address] Care Team Providers Care Tire Setter Name Role Phone Leo Alegre DO Primary Care Provider +1- [phone] Encounter Details Date Type Department Care Team (Late st Contact Info) Description 02/02/2023 Telephone [place]phrology [place] [phone] Татьяна Buenrostro Social History Tobacco Use Types Packs/Day Years Used Date Smoking Tobacco: Never Smokeless Tobacco: Never Sex and Gender Information Value Date Recorded Sex Assigned at Not on file Gender Identity Not on file Sexual Orientation Not on file documented as of this encounter Miscellaneous Notes * Telephone Encounter - Татьяна Buenrostro - 02/02/2023 11:01 AM EDT Pt returned phone call. Pt at this time doesn't feel an appointment is necessary. Pt will follow upwith PCP office and if he feels he needs an appointment will call our office to schedule an appointment. Therefor taking out recall documented in this encounter Plan of Treatment Upcoming Encounters Date Type Department Care Team (Late st Contact Info) Description 07/02/2024 3:00 PM EDT Office [place] [phone] [facility] [place] [place] [address] 08/12/2024 3:40 PM EDT Office [place] [phone] [facility] [place] [address] 09/18/2024 1:00 PM EST Office Visit Cardiology at [address] [phone] [facility] [place] [address] documented as of this encounter Visit Diagnoses Not on filedocumented in this encounter Care Teams Tire Setter Relationship Specialty Start Date End Date Leo Alegre DO [address] [place] [address] PCP - General Family Medicine 03/03/21 documented as of this encounter
--- OUTSIDE RECORDS SUMMARY | 2024-06-18 14:58 | XMS_ITS | Encounter Summary ---
[place] [address] Care Team Providers Care Computer Systems Design Analyst Name Role Phone Leo Alegre DO Primary Care Provider +1- [phone] Reason for Referral * Diagnostic Test (Routine) - Closed Specialty Diagnoses / Procedures Referred By Contac t Referred To Contact Radiology Diagnoses Chronic obstructive pulmonary disease, unspecified COPD type Cigarette nicotine dependence in remission Procedures CT Chest Screening Lung Cancer Siva Harrison MD [facility] [place] [address] [facility] [place] [address] Referral ID Status Reason Start Date Expiration Date V isits Requested Visits Authorized [id number] Closed Specialty Service Requested 09/14/2023 03/14/2025 1 1 Reason for Visit * Consultation (Routine) - Closed Specialty Diagnoses / Procedures Referred By Contac t Referred To Contact Pulmonology Diagnoses Pulmonary emphysema, unspecified emphysema type Leo Alegre DO [address] [place] [address] [facility] [address] [place] [address] Referral ID Status Reason Start Date Expiration Date V isits Requested Visits Authorized [id number] Closed Consult, Test & Treat PCP Updated and/or Approved 07/31/2023 07/30/2024 6 6 Encounter Details Date Type Department Care Team (Late st Contact Info) Description 09/14/2023 12:20 PM EDT Office [place] [address] [facility] [place] [address] Chronic obstructive pulmonary disease, unspecified COPD type (Primary Dx); Cigarette nicotine dependence in remission Social History Tobacco Use Types Packs/Day Years Used Date Smoking Tobacco: Former Cigarettes 2.8 30 1 973 - 2002 Smokeless Tobacco: Never Alcohol Use Standard Drinks/Week Comments Not Currently 0 (1 standard drink = 0.6 oz pur e alcohol) Sex and Gender Information Value Date Recorded Sex Assigned at Not on file Gender Identity Not on file Sexual Orientation Not on file documented as of this encounter Last Filed Vital Signs Vital Sign Reading Time Taken Comments Blood Pressure 187/100 09/14/2023 12:23 PM EDT Pulse 87 09/14/2023 12:23 PM EDT Temperature 37 ??C (98.6 ??F) 09/14/2023 12: 23 PM EDT Respiratory Rate 20 09/14/2023 12:2 3 PM EDT Oxygen Saturation 98% 09/14/2023 12: 23 PM EDT Inhaled Oxygen Concentration - - Weight 135.3 kg (298 lb 4.8 oz) 023 12:23 PM EDT Height 180.3 cm (5' 11) 09/14/2023 12: 23 PM EDT Body Mass Index 41.6 09/14/2023 12:23 PM EDT documented in this encounter Progress Notes * Siva Harrison MD - 09/14/2023 12:20 PM EDT Images from the original note were not included. [facility] Section of Pulmonary and Critical Care Medicine Outpatient Consultation Martín Mitchell is a 62 y.o. male who presents for evaluation of COPD. HPI: Patient had asthma as an that he grew out of in bundle clerk. He was recently diagnosed with emphysema. He gets shorrt of breath with more significant exertion. He denies a cough, complainsof mild wheezing. He denies a history of bronchitis. He had 2 episodes of SOB with more significantexertion. 09/14/2023 1:10 PM mMRC Response mMRC Grade 1 Past Medical History: Diagnosis Date Bipolar 1 disorder Diabetes HTN (hypertension) Past Surgical History: Procedure Laterality Date SINUS SURGERY TONSILLECTOMY Family History Problem Relation Age of Onset Respiratory Disease Neg Hx Social History Tobacco Use Smoking status: Former Packs/day: 2.75 Years: 30.00 Additional pack years: 0.00 Total pack years: 82.50 Types: Cigarettes Quit date: 2002 Years since quittin.8 Smokeless tobacco: Never Vaping Use Vaping Use: Never used Substance Use Topics Alcohol use: Not Currently Drug use: Yes Types: Marijuana Social History 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, 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 Current Outpatient Medications: losartan (Cozaar) 25 mg tablet, Take 25 mg by mouth daily., Disp: , Rfl: cariprazine (Vraylar) 3 mg Capsule, Take 3 mg by mouth daily., Disp: , Rfl: metFORMIN (Glucophage) 500 mg Tablet, Take 500 mg by mouth daily., Disp: , Rfl: semaglutide (Ozempic) 0.25 mg or 0.5 mg(2 mg/1.5 mL) Pen Injector, Inject 1 mg subcutaneously once a week., Disp: , Rfl: Ventolin HFA 90 mcg/actuation HFA Aerosol Inhaler, 4 times daily as needed., Disp: , Rfl: verapamil (CALAN-SR) 180 mg Tablet Sustained Release, Take 180 mg by mouth 2 times daily., Disp: , Rfl: melatonin 3 mg Tablet, Take 9 mg by mouth nightly as needed., Disp: , Rfl: ketoconazole (NIZORAL) 2 % Cream, as needed., Disp: , Rfl: LORazepam (ATIVAN) 1 mg Tablet, Take 1 mg by mouth as needed., Disp: , Rfl: Amlodipine besylate, Atorvastatin, and Lisinopril Review of Systems Constitutional: Negative. Respiratory: Positive for shortness of breath and wheezing. Negative for cough. Cardiovascular: Negative. Gastrointestinal: Negative. Neurological: Negative. Endo/Heme/Allergies: Negative. BP (!) 187/100 Pulse 87 Temp 37 ??C (98.6 ??F) (Temporal) Resp 20 Ht 180.3 cm (5' 11) Wt135.3 kg (298 lb 4.8 oz) SpO2 98% BMI 41.60 kg/m?? Vital signs reviewed General: Alert and [...] 07/19/2023 FVC 66 FEV1 60 FEV1/FVC 68 AUTOMOTIVE PARTS PERSON + TLC 83 RV 98 DLCO 55 DLCO/VA 98 6MWT (ft) Low sat O2 req. pH pCO2 pO2 CXR 09/14/2023: Independently reviewed by me The cardiac silhouette is normal in size with tortuous aorta. Diffuse narrowing of the trachea from a level above the clavicles suggestive of saber-sheath trachea. No pneumothorax or effusion. The lungs are hyperinflated with attenuation of vasculature in the upper lobes, right greater than left. Assessment & Plan: COPD: Spirometry reveals moderate obstruction with an FEV1 of 60%. There is a positive bronchodilator response. Lung volumes are normal. Diffusion capacity is reduced. Chest x-ray reveals hyper and related lungs. Patient with GOLD 2A COPD. I will continue albuterol and Anoro. He was prescribed Flovent but is not taking this. Since this is not asthma I would not recommend Flovent at this time. Nicotine Addiction: Patient quit smoking initially in 2002 then relapsed for a brief period of timeand quit again in 2016. I determined that the patient meets the eligibility criteria for lung cancer screening. We reviewed the or [facility] decision aid and discussed the benefits of earlier detection and harms of false positive results, over diagnosis, and radiation risk. We discussed the impact of co-morbidities on the benefit of screening and the patient's ability and willingness to undergo invasive diagnostic procedures and treatment that might follow a positive screening result. I also counseled the patient on the importance of adherence to annual lung cancer screening and the importanceof not smoking. A total of 45 minutes was spent performing this encounter on this date of service. My evaluation ofthis patient, including a review of the chart, history, laboratory, and imaging finding, discussionwith patient, placing orders and documenting the plan as detailed above. Follow-up instructions: Return in about 3 months (around 12/15/2023) for In Person. No orders of the defined types were placed in this encounter. documented in this encounter Plan of Treatment Upcoming Encounters Date Type Department Care Team (Late st Contact Info) Description 07/02/2024 3:00 PM EDT Office [place] [address] [facility] [place] [address] 08/12/2024 3:40 PM EDT Office [place] [address] [facility] [place] [address] 09/18/2024 1:00 PM EST Office [place] [address] [facility] [place] [address] documented as of this encounter Results * CT Chest Screening [...] who have questions please contact the health client care coordinator that requested your imaging first. ? Narrative 02/15/2024 3:22 PM EDT EXAMINATION: CT CHEST SCREENING LUNG CANCER CLINICAL HISTORY: Lung cancer annual screening, asymptomatic, former smoker quit w/in last 15 yrs (min. 20 pack-yrs) Asymptomatic but at high risk for lung cancer TECHNIQUE: Noncontrast, low-dose chest CT (LDCT) per [facility] lung cancer screening protocol. COMPARISON: None FINDINGS: [...] TECHNIQUE: Noncontrast, low-dose chest CT (LDCT) per [facility] lung cancerscreening protocol. COMPARISON: None FINDINGS: Lung-RADS [...] patients who have questions please contactthe health client care coordinator that requested your imaging first. Siva Yen MD IMG CT ORDERABLES documented in this encounter Visit Diagnoses Diagnosis Chronic obstructive pulmonary disease, unspecified COPD type- Primary Cigarette nicotine dependence in remission Tobacco use disorder Chronic obstructive pulmonary disease, unspecified COPD type Cigarette nicotine dependence in remission Tobacco use disorder documented in this encounter Care Teams Computer Systems Design Analyst Relationship Specialty Start Date End Date Leo Alegre DO [address] [place] [address] PCP - General Family Medicine 03/03/21 documented as of this encounter
--- OUTSIDE RECORDS SUMMARY | 2024-06-18 14:58 | XMS_ITS | Encounter Summary ---
Author Organization [facility] [place] [address] Care Team Providers Care Cover Creaser Name Role Phone Leo Alegre DO Primary Care Provider +1- [phone] Encounter Details Date Type Department Care Team (Late st Contact Info) Description 12/12/2023 External Results Emergency Department [facility] [place] [phone] Social History Tobacco Use Types Packs/Day Years Used Date Smoking Tobacco: Former Cigarettes 2.8 30 1 973 - 2003 Smokeless Tobacco: Never Alcohol Use Standard Drinks/Week Comments Not Currently 0 (1 standard drink = 0.6 oz pur e alcohol) [facility] Utilities Answer Date Recorded In the past [...] place to sleep or slept in a [place] health care facility (including now)? No 12/13/2023 IPV Inpatient Questions [...] 3:00 PM EDT Office [place] [address] Leo Flor MD [facility] [place] [address] 08/12/2024 3:40 PM EDT [place] [address] Siva Harrison MD [facility] [place] [address] 09/18/2024 1:00 PM EST Office Visit Cardiology at [place] [phone] Jj Davis MD [facility] [place] [address] documented as of this encounter Procedures Procedure Name Priority Date/Time Associated Diagnosis Comments ECG SCAN Routine 12/12/2023 3:05 PM EST documented in this encounter Results * Scan Doc: ECG (12/12/2023 3:05 PM EST) Historical Provider MD MEDIA MGR SCAN EX T ORDR/RSLT documented in this encounter Visit Diagnoses Not on filedocumented in this encounter Care Teams Cover Creaser Relationship Specialty Start Date End Date Leo Alegre DO [address] [place] [address] PCP - General Family Medicine 03/03/21 documented as of this encounter
--- OUTSIDE RECORDS SUMMARY | 2024-06-18 14:58 | XMS_ITS | Encounter Summary ---
Author Organization [facility] Address [facility] [place] [address] Care Team Providers Care Biometrics Consultant Name Role Phone Leo Alegre DO Primary Care Provider +1- [phone] Encounter Details Date Type Department Care Team (Latest Contact Info) Description 09/14/2023 Travel Social History Tobacco Use Types Packs/Day [...] 3:00 PM EDT Office Visit Endocrinology at [place] [phone] Leo Flor MD [facility] [place] [address] 08/12/2024 3:40 PM EDT Office [place] [address] Siva Harrison MD [facility] [place] [address] 09/18/2024 1:00 PM EST Office Visit Cardiology at [address] [address] Jj Davis MD [facility] [place] [address] documented as of this encounter Visit Diagnoses Not on filedocumented in this encounter Care Teams Biometrics Consultant Relationship Specialty Start Date End Date Leo Alegre DO [address] [place] [address] PCP - General Family Medicine 03/03/21 documented as of this encounter
--- OUTSIDE RECORDS SUMMARY | 2024-06-18 14:58 | XMS_ITS | Encounter Summary ---
Author Organization [facility] [place] [address] Care Team Providers Care Electronic Assembler Group Leader Name Role Phone Leo Alegre DO Primary Care Provider +1- [phone] Reason for Visit * Reason Comments Medication Refill Encounter Details Date Type Department Care Team (Late st Contact Info) Description 02/04/2022 Refill Nephrology Hypertension at [place] [phone] Hardik Dailey MD [facility] [place] [address] Social History Tobacco Use Types Packs/Day Years [...] 3:00 PM EDT Office Visit Endocrinology at [place] [phone] Leo Flor MD [facility] [place] [address] 08/12/2024 3:40 PM EDT Office Visit Pulmonology at [place] [phone] Siva Harrison MD [facility] [address] 09/18/2024 1:00 PM EST Office Visit Cardiology at [address] [address] Jj Davis MD [facility] [place] [address] documented as of this encounter Visit Diagnoses Not on filedocumented in this encounter Care Teams Electronic Assembler Group Leader Relationship Specialty Start Date End Date Leo Alegre DO [address] [place] [address] PCP - General Family Medicine 03/03/21 documented as of this encounter
--- OUTSIDE RECORDS SUMMARY | 2024-06-18 14:58 | XMS_ITS | Encounter Summary ---
Author Organization [facility] [place] [address] Care Team Providers Care Procurement Officer Name Role Phone Leo Alegre DO Primary Care Provider +1- [phone] Encounter Details Date Type Department Care Team (Late st Contact Info) Description 08/02/2023 Telephone Pulmonology at [place] [phone] Lizbet Gray Social History Tobacco Use Types [...] 3:00 PM EDT Office Visit Endocrinology at [place] [phone] Leo Flor MD [facility] [place] [address] 08/12/2024 3:40 PM EDT Office [place] [address] Siva Harrison MD [facility] [place] [address] 09/18/2024 1:00 PM EST Office Visit Cardiology at [place] [phone] Jj Davis MD [facility] [address] documented as of this encounter Visit Diagnoses Not on filedocumented in this encounter Care Teams Procurement Officer Relationship Specialty Start Date End Date Leo Alegre DO [address] [place] [address] PCP - General Family Medicine 03/03/21 documented as of this encounter
--- OUTSIDE RECORDS SUMMARY | 2024-06-18 14:58 | XMS_ITS | Encounter Summary ---
Author Organization [facility] Address [facility] [place] [address] Care Team Providers Care Emergency Services Director Name Role Phone Codey Leo Reardon DO Primary Care Provider +1- [phone] Encounter Details Date Type Department Care Team (Latest Contact Info) Description 09/14/2023 11:35 AM EDT - 09/14/2023 11:59 PM EDT Hospital Encounter XRay at [address] [place] [address] Siva Harrison MD [facility] [place] [address] Pulmonary emphysema, unspecified emphysema type Discharge Disposition: Home Social History Tobacco Use [...] Sig Dispensed Refills Start Date End Date ketoconazole (NIZORAL) 2 % Cream as needed. 08/15/2017 losartan (Cozaar) 25 mg tablet Take 25 mg by mouth daily. 10/08/2022 12/16/2023 umeclidinium-vilanter oL (Anoro Ellipta) 62.5-25 mcg/actuation Disk with DeviceIndications:Chr onic obstructive pulmonary disease, unspecified COPD type,Cigarette nicotine dependence in remission Inhale 1 puff into the lungs daily. 1 each 3 09/14/2023 01/02/2024 cariprazine (Vraylar) 3 mg Capsule Take 3 mg by mouth daily. 12/12/2023 metFORMIN (Glucophage) 500 mg Tablet Take 500 mg by mouth daily. 12/16/2023 semaglutide (Ozempic) 0.25 mg or 0.5 mg(2 mg/1.5 mL) Pen Injector Inject 1 mg subcutaneously once a week. 02/12/2024 Ventolin HFA 90 mcg/actuation HFA Aerosol Inhaler 4 times daily as needed. 11/30/2020 12/12/2023 verapamil (CALAN-SR) 180 mg Tablet Sustained Release Take 180 mg by mouth 2 times daily. 12/16/2023 melatonin 3 mg Tablet Take 9 mg by mouth nightly as needed. 12/12/2023 LORazepam (ATIVAN) 1 mg Tablet Take 1 mg by mouth as needed. 08/06/2017 12/16/2023 documented as of this encounter Plan of Treatment Upcoming Encounters Date Type Department Care Team (Late st Contact Info) Description 07/02/2024 3:00 PM EDT Office Visit Endocrinology at [place] [phone] Leo Flor MD [facility] [place] [address] 08/12/2024 3:40 PM EDT Office Visit Pulmonology at [place] [phone] Siva Harrison MD [facility] [place] [address] 09/18/2024 1:00 PM EST Office Visit Cardiology at [address] [phone] Jj Davis MD [facility] [place] [address] documented as of this encounter Procedures Procedure Name Priority Date/Time Associated Diagnosis Comments XR CHEST PA AND LATERAL Routine 09/14/2023 11:43 AM EDT Pulmonary emphysema, unspecified emphysema type documented in this encounter Results * XR Chest PA [...] have questions please contact the health care team coordinator scheduler that requested your imaging first. ? Narrative [...] who have questions please contactthe health care team coordinator scheduler that requested your imaging first. Siva Yen MD IMG DX ORDERABLES documented in this encounter Visit Diagnoses Diagnosis Pulmonary emphysema, unspecified emphysema type documented in this encounter Care Teams Emergency Services Director Relationship Specialty Start Date End Date Leo Alegre DO [address] [place] [address] PCP - General Family Medicine 03/03/21 documented as of this encounter
--- OUTSIDE RECORDS SUMMARY | 2024-06-18 14:59 | XMS_ITS | Encounter Summary ---
Author Organization [facility] Address [address] [place] [address] Care Team Providers Care Spare Hand Name Role Phone Maryuri Severino MD Primary Care Provider Bernadine vailable Encounter Details Date Type Department Care Team (Late st Contact Info) Description 02/28/2018 Results Only [facility] [phone] David Giron MD [address] [place] [address] Social History Tobacco Use Types Packs/Day Years Used Date Smoking Tobacco: Never Assessed Sex and Gender Information Value Date Recorded Sex Assigned at Not on file Gender Identity Not on file Sexual Orientation Not on file documented as of this encounter Plan of Treatment Not on file documented as of this encounter Procedures Procedure Name Priority Date/Time Associated Diagnosis Comments CYTOPATHOLOGY Routine 02/28/2018 0:00 EDT documented in this encounter Results * CYTOPATHOLOGY (02/28/2018 0:00 EDT) Pathology Report: CYTOPATHOLOGY REPORT Reports generated via electronic interface contain original data; however they are lacking the format of the original report. Caution should be taken when reading/interpret ing unformatted reports. Name: ? MARTÍN MITCHELL ? Accession #: ? [id number] : ? 1960 (Age: 57) ??M ?Collect Date: ? 02/28/2018 Location: ? [facility] ? Receive Date: ? 03/01/2018 Provider: ? DAVID GIRON MD Copy to: ? CYTOLOGIC DIAGNOSIS: URINE, BARBOTAGE: - ?Negative for malignancy. - ?Reactive urothelial cells, few mixed inflammatory ? cells, and amorphous proteinaceous debris. Document reviewed and electronically signed by: ? DRAKE KUMAR MD Report Date: ??03/01/2018 20:00 By the signature above, the attending physician certifies that he/she has personally conducted a gross and/or microscopic examination of the described specimens and rendered or confirmed the above diagnosis. Specimen Type: ? Urine, Barbotage Clinical History: ? Innumerable bladder calculi. Clinical diagnosis code: ??N21.0,R33.9, R30.0, R39.11 ? Gross Description: ? 120ccs of clear yellow fluid (60ccs Cytolyt added) were received and processed by selective cellular enhancement technique. ? End of Report [facility] 02/28/2018 03/01/2018 9:5 2 EDT David Giron MD PATHOLOGY ORDERABLES [facility] [address] [place] [address] documented in this encounter Visit Diagnoses Not on filedocumented in this encounter Care Teams Spare Hand Relationship Specialty Start Date End Date Maryuri Severino MD PCP - General 05/23/10 03/14/18 documented as of this encounter
--- OUTSIDE RECORDS SUMMARY | 2024-06-18 14:59 | XMS_ITS | Encounter Summary ---
Author Organization [facility] [place] [address] Care Team Providers Care Pharmacy Informatics Manager Name Role Phone Leo Alegre DO Primary Care Provider +1- [phone] Reason for Visit * Reason Comments Medication Refill Encounter Details Date Type Department Care Team (Late st Contact Info) Description 10/12/2021 Refill Nephrology Hypertension at [place] [phone] Hardik Dailey MD [facility] [address] Social History Tobacco Use Types Packs/Day Years [...] 3:00 PM EDT Office Visit Endocrinology at [place] [phone] Leo Flor MD [facility] [place] [address] 08/12/2024 3:40 PM EDT Office Visit Pulmonology at [place] [phone] Siva Harrison MD [facility] [place] [address] 09/18/2024 1:00 PM EST Office Visit Cardiology at [address] [phone] Jj Davis MD [facility] [place] [address] documented as of this encounter Visit Diagnoses Not on filedocumented in this encounter Care Teams Pharmacy Informatics Manager Relationship Specialty Start Date End Date Leo Alegre DO [address] [place] [address] PCP - General Family Medicine 03/03/21 documented as of this encounter
--- OUTSIDE RECORDS SUMMARY | 2024-06-18 14:59 | XMS_ITS | Clinical Summary ---
Author Organization [facility] Address [address] [place] [address] Care Team Providers Care Qa Auditor Name Role Phone Cody Ahumada DO Primary Care Provider [phone] Social History Tobacco Use Types Packs/Day Years Used Date Smoking Tobacco: Never Assessed Interpersonal Safety Answer Date Record ed Physically Hurt Never 06/13/2020 Verbally Threaten Not on file 06/13/2020 Sex and Gender Information Value Date Recorded Sex Assigned at Not on file Gender Identity Not on file Sexual Orientation Not on file Plan of Treatment Health Maintenance Due Date Last Done Comments Hepatitis C Screen 1960 RSV Immunization ( o r 60+ Years) (1 - 1-dose 60+ series) 2022 COVID-19 Vaccine (2022-24 season) 2023 Care Teams Qa Auditor Relationship Specialty Start Date End Date Cody Ahumada DO [address] [place] [address] PCP - General 03/15/18
--- OUTSIDE RECORDS SUMMARY | 2024-06-18 14:59 | XMS_ITS | Encounter Summary ---
Author Organization Replaced By [facility] Address [facility] [place] [address] Care Team Providers Care Genetic Counselor Name Role Phone Siva Wiseman DO Primary Care Provider +1- [phone] Encounter Details Date Type Department Care Team (Latest Contact Info) Description 10/16/2018 10:00 AM EST Laboratory Appointment Lab [address]L [place] [address] Nephrolithiasis Social History Tobacco Use Types Packs/Day Years [...] 3:00 PM EDT Office Visit Endocrinology at [place] [phone] Leo Flor MD [facility] [place] [address] 08/12/2024 3:40 PM EDT Office [place] [address] Siva Harrison MD [facility] [place] [address] 09/18/2024 1:00 PM EST Office Visit Cardiology at [address] [address] Jj Davis MD [facility] [place] [address] documented as of this encounter Procedures Procedure Name Priority Date/Time Associated Diagnosis Comments URIC ACID Routine 10/16/2018 10:26 AM EST Nephrolithiasis BASIC METABOLIC PANEL Routine 10/16/2018 10:26 AM EST Nephrolithiasis documented in this encounter Results * Uric acid (10/16/2018 10:26 AM EST) Uric Acid 7.8 3.5 - 8.5 mg/dL [facility] Blood specimen (specimen) 10/16/2018 10:26 AM EST 10/16/2018 10:35 AM EST Narrative Resulting Agency Comment Spec In Lab Hardik Dailey MD CHEMISTRY ORDERABLES [facility] [place] [address] * (ABNORMAL) Basic Metabolic Panel (non-fasting) (10/16/2018 10:26 AM EST) Glucose 114 65 - 199 mg/dL [facility] Comment:Diabetes: >=200 mg/d L plus symptoms Blood Urea Nitrogen 23(H) 10 - 20 mg/dL [facility] Creatinine 0.88 0.80 - 1.50 mg/dL [facility] Sodium 140 135 - 145 mmol/L [facility] Potassium 4.8 3.5 - 5.0 mmol/L [facility] Comment: Please note: ??Patients with WBC >100,000 may have falsely elevated Potassium levels. ??For accurate Potassium quantification in these patients send serum separator tube (gold top) for subsequent determinations. ??Contact the Clinical Chemistry Laboratory if there are any questions. Chloride 102 98 - 107 mmol/L [facility] Carbon Dioxide 23 22 - 31 mmol/L [facility] Anion Gap 15 5 - 15 mmol/L [facility] Calcium 9.1 8.5 - 10.5 mg/dL [facility] Est Glomerular Filtration Rate 97 >=60 mL/min/1. 73 m?? [facility] Comment: The eGFR was calculated using the CKD-EPI equation. As with all creatinine based estimates of kidney function, eGFR values calculated with the CKD-EPI equation are not accurate in patients with acute kidney failure, extremes of body mass or the acutely ill. http://hybris/[email or web address] [place] eGFR 112 >=60 mL/min/1. 73 m?? [facility] Comment: The eGFR was calculated using the CKD-EPI equation. As with all creatinine based estimates of kidney function, eGFR values calculated with the CKD-EPI equation are not accurate in patients with acute kidney failure, extremes of body mass or the acutely ill. http://[email or web address]/[email or web address] [place] Blood specimen (specimen) 10/16/2018 10:26 AM EST 10/16/2018 10:35 AM EST Narrative Resulting Agency Comment Spec In Lab Hardik Dailey MD CHEMISTRY ORDERABLES Performing Organization Address City/State/[facility] Co de Phone Number [facility] [place] [address] documented in this encounter Visit Diagnoses Diagnosis Nephrolithiasis Calculus of kidney documented in this encounter Care Teams Genetic Counselor Relationship Specialty Start Date End Date Siva Wiseman DO [address] [place] [address] PCP - General General Internal Medicine 06/12/1805/12 documented as of this encounter
--- OUTSIDE RECORDS SUMMARY | 2024-06-18 14:59 | XMS_ITS | Encounter Summary ---
Author Organization [facility] [place] [address] Care Team Providers Care Missile And Missile Checkout Technician Name Role Phone KaleteSiva DO Primary Care Provider +1- [phone] Reason for Visit * Reason Comments Medication Refill Encounter Details Date Type Department Care Team (Late st Contact Info) Description 08/16/2018 Refill Nephrology Hypertension at [place] [phone] Hardik Dailey MD [facility] [place] [address] Social History Tobacco Use Types Packs/Day Years [...] EDT Office Visit Endocrinology at [place] [phone] Leo Flor MD [facility] [place] [address] 08/12/2024 3:40 PM EDT Office [place] [address] Siva Harrison MD [facility] [place] [address] 09/18/2024 1:00 PM EST Office Visit Cardiology at [address] [address] Jj Davis MD [facility] [place] [address] documented as of this encounter Visit Diagnoses Not on filedocumented in this encounter Care Teams Missile And Missile Checkout Technician Relationship Specialty Start Date End Date Siva Wiseman DO [address] [place] [address] PCP - General General Internal Medicine 06/12/1805/12 documented as of this encounter
--- OUTSIDE RECORDS SUMMARY | 2024-06-18 14:59 | XMS_ITS | Encounter Summary ---
Author Organization [facility] Address [address] [place] [address] Care Team Providers Care Set Up Mechanic Crown Assembly Machine Name Role Phone Maryuri Severino MD Primary Care Provider Bernadine vailable Encounter Details Date Type Department Care Team (Late st Contact Info) Description 03/13/2018 Results Only [facility] [phone] David Giron MD [address] [place] [address] Social History Tobacco Use Types Packs/Day Years Used Date Smoking Tobacco: Never Assessed Sex and Gender Information Value Date Recorded Sex Assigned at Not on file Gender Identity Not on file Sexual Orientation Not on file documented as of this encounter Plan of Treatment Not on file documented as of this encounter Procedures Procedure Name Priority Date/Time Associated Diagnosis Comments SURGICAL PATHOLOGY Routine 03/13/2018 15 :43 EDT documented in this encounter Results * SURGICAL PATHOLOGY (03/13/2018 15:43 EDT) Pathology Report: SURGICAL PATHOLOGY REPORT Reports generated via electronic interface contain original data; however they are lacking the format of the original report. Caution should be taken when reading/interpret ing unformatted reports. Name: ? MARTÍN MITCHELL ? Accession #: ? [id number] ? : ? 1960 (Age: 57) ??M ? Collect Date: ? 03/13/2018 ? Location: ? [facility] ? Receive Date: ? 03/13/2018 ? Provider: DAVID GIRON MD Copy to: MATT WAGGONER DO ? Final Pathologic Diagnosis: PROSTATE CHIPS, TRANSURETHRAL RESECTION: - Benign prostatic glands and stroma. Document reviewed and electronically signed by: SUSHIL MCKEON MD Report ??Date: 03/15/2018 12:41 By the signature above, the attending physician certifies that he/she has personally conducted a gross and/or microscopic examination of the described specimens and rendered or confirmed the above diagnosis. Specimen(s) Received: Prostate chips Clinical History: Bladder stones, BPH Gross Description: ? Received in formalin labelled with proper patient identification (initials R, P) and prostate chips are multiple isabel-montero, rubbery and cauterized soft tissue fragments admixed with yellow granular debris (8.6 g, 5.5 x 5.0 x 1.1 cm in aggregate). The specimen is entirely submitted in 11-20. SVEN Cheung (ASCP) 03/14/2018 1:48 PM End of Report [facility] 03/13/2018 15:4 3 EDT 03/13/2018 15:43 EDT David Giron MD PATHOLOGY ORDERABLES [facility] [address] [place] [address] documented in this encounter Visit Diagnoses Not on filedocumented in this encounter Care Teams Set Up Mechanic Crown Assembly Machine Relationship Specialty Start Date End Date Maryuri Severino MD PCP - General 05/23/10 03/14/18 documented as of this encounter
--- OUTSIDE RECORDS SUMMARY | 2024-06-18 14:59 | XMS_ITS | Encounter Summary ---
Author Organization [facility] [place] [address] Care Team Providers Care Senior Electronics Technician Name Role Phone Siva Wiseman DO Primary Care Provider +1- [phone] Encounter Details Date Type Department Care Team (Late st Contact Info) Description 06/26/2018 Telephone [place] [phone] Faby-Giselle Vasquez Social History Tobacco Use Types Packs/Day Years Used Date Smoking Tobacco: Never Smokeless Tobacco: Never Sex and Gender Information Value Date Recorded Sex Assigned at Not on file Gender Identity Not on file Sexual Orientation Not on file documented as of this encounter Miscellaneous Notes * Telephone Encounter - Giselle Hobbs - 06/26/2018 12:52 PM EDT Spoke w patient let him know that we received his registration paperwork and he just needs to finish Remedy. He said he was going to work would finish it tomorrow and let me know it was done. documented in this encounter Plan of Treatment Upcoming Encounters Date Type Department Care Team (Late st Contact Info) Description 07/02/2024 3:00 PM EDT Office [place] [phone] Leo Flor MD [facility] [place] [address] 08/12/2024 3:40 PM EDT Office [place] [address] Siva Harrison MD [facility] [place] [address] 09/18/2024 1:00 PM EST Office Visit Cardiology at [address] [phone] Jj Davis MD [facility] [place] [address] documented as of this encounter Visit Diagnoses Not on filedocumented in this encounter Care Teams Senior Electronics Technician Relationship Specialty Start Date End Date Siva Wiseman DO [address] [place] [address] PCP - General General Internal Medicine 06/12/1805/12 documented as of this encounter
--- OUTSIDE RECORDS SUMMARY | 2024-06-18 14:59 | XMS_ITS | Encounter Summary ---
Author Organization [facility] Address [address] [place] [address] Care Team Providers Care Ssis Architect Name Role Phone Mrayuri Severino MD Primary Care Provider Bernadine vailable Encounter Details Date Type Department Care Team (Latest Contact Info) Description 02/28/2018 15:10 EDT - 02/28/2018 23:59 EDT Hospital Encounter [address] [address] Unknown, Provider, Discharge Disposition: Home or Self Care Social History Tobacco Use Types Packs/Day Years Used Date Smoking Tobacco: Never Assessed Sex and Gender Information Value Date Recorded Sex Assigned at Not on file Gender Identity Not on file Sexual Orientation Not on file documented as of this encounter Discharge Disposition Disposition Code Departure Means Destination Home or Self Half-Way documented in this encounter Plan of Treatment Not on file documented as of this encounter Visit Diagnoses Not on filedocumented in this encounter Care Teams Ssis Architect Relationship Specialty Start Date End Date Maryuri Severino MD PCP - General 05/23/10 03/14/18 documented as of this encounter
--- OUTSIDE RECORDS SUMMARY | 2024-06-18 14:59 | XMS_ITS | Encounter Summary ---
Author Organization [facility] [place] [address] Care Team Providers Care Blood Bank Worker Name Role Phone Unknown Primary Care Provider Unavailabl e Reason for Visit * Reason Comments Medication Refill Encounter Details Date Type Department Care Team (Late st Contact Info) Description 07/02/2020 Refill Nephrology Hypertension at [place] [phone] aHrdik Dailey MD [facility] [address] Social History Tobacco Use Types Packs/Day Years [...] 3:00 PM EDT Office Visit Endocrinology at [place] [phone] Leo Flor MD [facility] [place] [address] 08/12/2024 3:40 PM EDT Office Visit Pulmonology at [place] [phone] Siva Harrison MD [facility] [place] [address] 09/18/2024 1:00 PM EST Office Visit Cardiology at [address] [address] Jj Davis MD [facility] [place] [address] documented as of this encounter Visit Diagnoses Not on filedocumented in this encounter Care Teams Blood Bank Worker Relationship Specialty Start Date End Date Unknown None PCP - General 05/13/20 03/02/21 documented as of this encounter
--- OUTSIDE RECORDS SUMMARY | 2024-06-18 14:59 | XMS_ITS | Encounter Summary ---
Author Organization [facility] Address [facility] [place] [address] Care Team Providers Care General Contractor Name Role Phone Leo Alegre DO Primary Care Provider +1- [phone] Encounter Details Date Type Department Care Team (Late st Contact Info) Description 12/08/2004 Orders Only Dermatology at [place] [address] [facility] [place] [address] Hardik Dejesus MD [address] [facility] [place] [address] Social History Tobacco Use Types Packs/Day Years Used Date Smoking Tobacco: Never Assessed [facility] Utilities Answer Date Recorded In the [...] 3:00 PM EDT Office Visit Endocrinology at [address] Leo Flor MD [facility] [place] [address] 08/12/2024 3:40 PM EDT Office [place] [address] Siva Harrison MD [facility] [place] [address] 09/18/2024 1:00 PM EST Office Visit Cardiology at [address] Jj Davis MD [facility] [place] [address] documented as of this encounter Procedures Procedure Name Priority Date/Time Associated Diagnosis Comments SURGICAL PATHOLOGY REPORT Routine 12/08/2004 8:59 PM EST documented in this encounter Results * Surgical Pathology Report (12/08/2004 8:59 PM EST) Surgical Pathology Report [id number] ? Location: The signing pathologist has (i) examined the relevant preparation(s) for the specimen(s) and (ii) rendered or confirmed the diagnosis(es). . ?Pathology Surgical Pathology Final Report Clinical Information Specimen Submitted: A - (L) Medial canthus, excision Clinical History: Cyst Gross Description Labeled/Fixative: ? Left medial canthus, formalin. Qty/Size/Weight: ?0.8 x 0.5 x 0.4 cm. Tissue Description: ?? Irregular fragment of isabel-white tissue, resembling a ?previously ruptured cyst. Sections/Processi ng: ??Bisected. ??(T1) ??aje/RHB Microscopic Description Slides reviewed, microscopic description not recorded. Diagnosis Verrucous squamous proliferation with cystic component, excision, margins involved, left medial canthus (see Comment). CR-0 12/12/04 TBB 12/13/04 Verified by: ? Heidi Samayoa MD ?Dermatopatholog ist ?(Electronic Signature) The attending pathologist whose signature appears on this report has reviewed all diagnostic slides and has edited the gross and/or microscopic portion of the report in rendering the final pathologic diagnosis. Comment There is an endophytic squamous proliferation which shows HPV features, including a prominent granular cell layer, clumped keratohyaline granules, ??and perinuclear vacuoles. ??Dyskeratotic cells are also present. ??There is a keratin-filled invagination. ??The findings suggest a verruca with a cystic component. [facility] 12/08/2004 8:59 PM EST Hardik Dejesus MD PATHOLOGY/CYTOLOGY [place] Performing Organization Address City/State/[facility] Co pa Phone Number [facility] documented in this encounter Visit Diagnoses Not on filedocumented in this encounter Care Teams General Contractor Relationship Specialty Start Date End Date Leo Alegre DO [address] [place] [address] PCP - General Family Medicine 03/03/21 documented as of this encounter
--- OUTSIDE RECORDS SUMMARY | 2024-06-18 14:59 | XMS_ITS | Encounter Summary ---
Author Organization [facility] [place] [address] Care Team Providers Care Assistant Laboratory Director Name Role Phone Siva Wiseman DO Primary Care Provider +1- [phone] Encounter Details Date Type Department Care Team (Latest Contact Info) Description 02/19/2020 11:30 AM EDT TH Visit (TeleHealth) Nephrology [place] [address] Hardik Dailey MD [facility] [place] [address] Nephrolithiasis; Vitamin D deficiency Social History Tobacco Use Types Packs/Day Years Used Date Smoking Tobacco: Never Smokeless Tobacco: Never Sex and Gender Information Value Date Recorded Sex Assigned at Not on file Gender Identity Not on file Sexual Orientation Not on file documented as of this encounter Last Filed Vital Signs Vital Sign Reading Time Taken Comments Blood Pressure - - Pulse - - Temperature - - Respiratory Rate - - Oxygen Saturation - - Inhaled Oxygen Concentration - - Weight 146.1 kg (322 lb) 02/18/2020 10:08 AM EDT Height 180.3 cm (5' 11) 02/18/2020 10:08 AM EDT Body Mass Index 44.91 02/18/2020 10:08 AM EDT documented in this encounter Progress Notes * Hardik Dailey MD - 02/19/2020 11:30 AM EDT PATIENT: Martín Mitchell : 1960 Renal clinic telehealth encounter Interval history: Patient denies any stone occurrence since last seen in May 2019. He is continuing to take potassium citrate and ergocalciferol. He is also continues to focus on good fluid intake. He still eats a fair amount of steak per report. Assessment/Plan: #Nephrolithiasis: Stone Analysis:Bladder calculi obtained via cystoscopy at [facility] with analysis ??Of 100%uric acid Per litholink??06/29??24hours volume 3.47 Liters, Uric acid level 2.57 (with elevated super saturation) . Patient continues on KCitrate for alkalization of urine and counseled on restriction of animal proteins (lower obligate acid excretion) Plan: Will??follow up??BMP, ??and Uric acid (will send external labs to [facility] for patient to get once COVID crisis settles down) Continue to focus??diet in stone management with an emphasis on fluid intake 2-3 liters daily??(patient reports ~1 gallon daily)??and Salt restriction.??Continue to focus on limiting acid intake (animal proteins/Beer) Continue??alkalinize urine using Potassium Citrate 20meq??BID.? Vitamin D deficiency Vit d still low at 12ng/dl patient remains on ergocalciferol. Will send vitamin D lab to assess progress ?? Outpatient medications: Current Outpatient Medications on File Prior to Visit Medication Sig Dispense Refill ??? verapamil (CALAN-SR) 180 mg Tablet Sustained Release Take 180 mg by mouth 2 times daily. ??? potassium Citrate (UROCIT) 10 mEq (1,080 mg) Tablet Sustained Release TAKE TWO TABLETS BY MOUTHTWICE DAILY 360 tablet 3 ??? ergocalciferol (ERGOCALCIFEROL) 50,000 unit Capsule Take 1 capsule by mouth once a week. 8 capsule 12 ??? melatonin 3 mg Tablet Take 9 mg by mouth nightly as needed. ??? ARIPiprazole (ABILIFY) 10 mg Tablet Take 10 mg by mouth daily. ??? ketoconazole (NIZORAL) 2 % Cream as needed. ??? LORazepam (ATIVAN) 1 mg Tablet Take 1 mg by mouth as needed. No current facility-administered medications on file prior to visit. MEDICATIONS: Allergies Allergen Reactions ??? Lisinopril CAUSES COUGH ROS: Constitutional - No fevers, chills, weight loss Skin - No rash or itchy skin HEENT - No headaches, visual changes, oral mucosa dryness Resp - No cough, shortness of breath CV - No chest pain, difficulty breathing lying flat, leg swelling GI - No nausea, vomiting,change in bowel habits/abdominal pain - No change in urine output. No pain urinating or blood in urine. Neuro - No weakness. No numbness/ tingling in extremities. MSK- No joint pain/swelling PHYSICAL EXAM: Last value Temperature Heart Rate Blood Pressure Respiratory Rate SpO2 A total of 15 minutes was spent on this encounter greater than 50% in direct patient counseling Hardik Dailey MD, MPH Section of Nephrology #[id number] documented in this encounter Plan of Treatment Upcoming Encounters Date Type Department Care Team (Late st Contact Info) Description 07/02/2024 3:00 PM EDT Office [place] [address] Leo Folr MD [facility] [place] [address] 08/12/2024 3:40 PM EDT Office [place] [address] Siva Harrison MD [facility] [place] [address] 09/18/2024 1:00 PM EST Office Visit Cardiology at [place] [phone] Jj Davis MD [facility] [place] [address] documented as of this encounter Visit Diagnoses Diagnosis Nephrolithiasis Calculus of kidney Vitamin D deficiency Unspecified vitamin D deficiency documented in this encounter Care Teams Assistant Laboratory Director Relationship Specialty Start Date End Date Siva Wiseman DO [address] [place] [address] PCP - General General Internal Medicine 06/12/1805/12 documented as of this encounter
--- OUTSIDE RECORDS SUMMARY | 2024-06-18 14:59 | XMS_ITS | Referral Summary ---
Author Organization [facility] Address [address] [place] [address] Care Team Providers Care Fabric Lay Out Worker Name Role Phone Cody Ahumada DO Primary Care Provider [phone] Social History Tobacco Use Types Packs/Day Years Used Date Smoking Tobacco: Never Assessed Interpersonal Safety Answer Date Record ed Physically Hurt Never 06/13/2020 Verbally Threaten Not on file 06/13/2020 Sex and Gender Information Value Date Recorded Sex Assigned at Not on file Gender Identity Not on file Sexual Orientation Not on file Plan of Treatment Not on file Care Teams Fabric Lay Out Worker Relationship Specialty Start Date End Date Cody Ahumada DO [address] [place] [address] PCP - General 03/15/18
--- OUTSIDE RECORDS SUMMARY | 2024-06-18 14:59 | XMS_ITS | Encounter Summary ---
Author Organization [facility] [place] [address] Care Team Providers Care Green Coffee Blender Name Role Phone Leo Alegre DO Primary Care Provider [phone]- [phone] Reason for Visit * Reason Comments Medication Refill Encounter Details Date Type Department Care Team (Late st Contact Info) Description 05/26/2021 Refill Nephrology Hypertension at [place] [phone] Hardik Dailey MD [facility] [place] [address] Social History Tobacco Use Types Packs/Day Years [...] 3:00 PM EDT Office Visit Endocrinology at [place] [phone] Leo Flor MD [facility] [place] [address] 08/12/2024 3:40 PM EDT Office Visit Pulmonology at [place] [phone] Siva Harrison MD [facility] [place] [address] 09/18/2024 1:00 PM EST Office Visit Cardiology at [address] [address] Jj Davis MD [facility] [place] [place] [address] documented as of this encounter Visit Diagnoses Not on filedocumented in this encounter Care Teams Green Coffee Blender Relationship Specialty Start Date End Date Leo Alegre DO [address] [place] [address] PCP - General Family Medicine 03/03/21 documented as of this encounter
--- OUTSIDE RECORDS SUMMARY | 2024-06-18 14:59 | XMS_ITS | Encounter Summary ---
Author Organization [facility] Address [address] [facility] [place] [address] Care Team Providers Care [employer] Name Role Phone Cody Ahumada DO Primary Care Provider [phone] Encounter Details Date Type Department Care Team (Late st Contact Info) Description 09/28/2017 2:00 PM EST Office Visit Dermatology at [address] [place] [id number] Hardik Dejesus MD [address] [facility] [place] [address] [facility] Social History Tobacco Use Types Packs/Day Years Used Date Smoking Tobacco: Never Assessed Sex and Gender Information Value Date Recorded Sex Assigned at Not on file Gender Identity Not on file Sexual Orientation Not on file documented as of this encounter Progress Notes * Hardik Dejesus MD - 09/28/2017 2:00 PM EST PROBLEM: Follow up for repeat skin tag removal. Martín follows up and has grown some more skin tags. He has tried using tea tree oil to prevent them from recurring, but unfortunately they have grown back anyway. He is working very hard on losing weight which he knows would be helpful. In the meantime, since I saw him last he has met his biologic mother. Physical examination reveals a pleasant 56-year-old gentleman who has numerous tags present on the base of his neck and in the axillary vaults that are often irritated. Some are irritated today. A/P: Tags. a. Today a total of 15 removed after first anesthetizing them and then using electrodesiccation. b. Patient tolerated it well. c. Return to clinic for another 15-minute appointment for removal of remaining tags. cc: Cody Ahumada DO documented in this encounter Plan of Treatment Upcoming Encounters Date Type Department Care Team (Late st Contact Info) Description 07/02/2024 3:00 PM EDT Office [place] [address] Leo Flor MD [facility] [place] [address] 08/12/2024 3:40 PM EDT [place] [address] Siva Harrison MD [facility] [place] [address] 09/18/2024 1:00 PM EST Office Visit Cardiology at [address] Jj Davis MD [facility] [place] [address] documented as of this encounter Visit Diagnoses Diagnosis Inflamed acrochordon Unspecified hypertrophic and atrophic condition of skin documented in this encounter Care Teams [employer] Relationship Specialty Start Date End Date Cody Ahumdaa DO PCP - General General Internal Medicine 09/28/1705/14 documented as of this encounter
--- OUTSIDE RECORDS SUMMARY | 2024-06-18 14:59 | XMS_ITS | Encounter Summary ---
Author Organization [facility] Address [address] [place] [address] Care Team Providers Care Behavioral Consultant Name Role Phone Pcp, No Unavailable Unavailable System, Provider Not In Unavailable Unavaila ble Reason for Visit * Reason Comments Altered Mental Status Encounter Details Date Type Department Care Team (Late st Contact Info) Description 06/04/2014 2:47 PM EDT - 06/05/2014 5:30 PM EDT Emergency [facility] Emergency Department [address] [place] [phone] Siva Ambrosio MD [address] [place] [phone] Davy Rodriguez MD [address] [place] [address] Venecia Bermeo MD [address] [place] [phone] Leydi Draper, DO [address] [place] [address] Abdullahi Dorman MD [address] [place] [address] Discharge Disposition: Psychiatric [facility] Social History Tobacco Use Types Packs/Day Years Used Date Smoking Tobacco: Every Day Cigarettes 0.5 Substance Use Types Use/Week Comments Yes pt could not be specific Sex and Gender Information Value Date Recorded Sex Assigned at Not on file Gender Identity Not on file Sexual Orientation Not on file documented as of this encounter Last Filed Vital Signs Vital Sign Reading Time Taken Comments Blood Pressure 145/90 06/05/2014 4:54 PM EDT Pulse 78 06/05/2014 4:54 PM EDT Temperature 36.6 ??C (97.9 ??F) 06/05/2014 4:54 PM ED T Respiratory Rate 17 06/05/2014 4:54 PM EDT Oxygen Saturation 95% 06/05/2014 4:54 PM EDT Inhaled Oxygen Concentration 95% 06/05/2014 4 :54 PM EDT Weight - - Height - - Body Mass Index - - documented in this encounter Functional Status Functional Status Response Date of Assessment Stat us Are you deaf or do you have serious difficulty hearing? No 06/04/2014 Active Are you blind or do you have serious difficulty seeing, even when wearing glasses? No 06/04/2014 Activ e Do you have serious difficul ty walking or climbing stairs? (5 years old or older) No 06/04/2014 Active Do you have difficulty dress ing or bathing? (5 years old or older) No 06/04/2014 Active Because of a physical, menta l, or emotional condition, do you have difficulty doing errands alone such as visiting a doctor's office or shopping? (15 years old or older) No 06/04/2014 Active Cognitive Status Response Date of Assessment Statu s Because of a physical, menta l, or emotional condition, do you have serious difficulty concentrating, remembering, or making decisions? (5 years old or older) No 06/04/2014 Active documented as of this encounter Medications at Time of Discharge Medication Sig Dispensed Refills Start Date End Date CarBAMazepine (TEGRETOL PO) Take 600 mg by mouth 2 times daily. 0 ClonazePAM (KLONOPIN PO) Take 1 mg by mouth 2 times daily. 0 VERAPAMIL HCL 180 mg by Does not apply route 2 times daily. 0 documented as of this encounter Progress Notes * Restricted notes were excluded * Justino Thomas - 06/05/2014 8:38 AM EDT Images from the original note were not included. ACUTE PSYCHIATRY RE-EVALUATION The patient is seen by me in follow-up. I reviewed the medical record and discussed the case with the acute psych team. Developments, additional history, and patient report since last evaluation: The patient is seen this AM eating breakfast in his room. He is cooperative and calm throughout theinterview. He is easily distracted but is redirectible. He appears lethargic, but alert and aware of surroundings. Speech is extremely dysarticulate, and he is difficult to understand. He also displays poor coordination, knocking over his bowl of cereal and cup of juice and at times appearing to see and reach for objects that are not actually there. The patient endorses visual hallucinations and reports that he has seen other people in his room that other people do not see, however at the moment he states that this interviewer is the only other person in the room with him. He also reports rafael tory hallucinations last evening though states that he is not hearing voices this AM. He denies that the voices commanded him to hurt himself or others. He also speaks about the Messiah He denies SI and HI. He reports compliance with all medications including Tegretol 600 mg BID, however this AM the patient had a subtherapeutic Tegretol level of 3.4 He denies recent changes in his Tegretol dosethough he does state that clonazepam was recently started by his psychiatrist, Dr. Sherita Nicole ([phone]). He reports feeling great this morning. Though he does not seem to be concerned about his recent behavior or current situation, the patient is voluntary for inpatient hospitalization whet her it be in [place] or at [facility]. Following interview I spoke with the patient's psychiatrist, Dr. Nicole in [place]. She clarifies that the patient has had a history of bipolar disorder since age 17 with many prior psychiatric hospitalizations, the most recent in 2002. 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 She reports that his coworkers have been concerned about his behavior recently since June 01. In addition I spoke with patient's cousin Walter Oh (H: [phone], C: [phone]), who also reports he has been concerned with the patient's behavior in the last week and particular with bizarre messages that the patient has been positing on facebook.The patient has given verbal consent for his entire medical record to be shared with his cousin Hedy and psychiatrist Dr. Nicole who have requested updates on his care should he be hospitalized. 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 Currently on 2 week medical leave History: Legal Problems : none known Mental Status Exam: Appearance: A large, 53 year old man who appears his stated age. Dressed in hopsital clothes. Behavior: Calm, sitting on edge of bed eating breakfast. Genial attitude. Eye contact: Good Speech: Very dysarthic, difficult to understand. Appropriate volume, normal rate, normal prosody. Mood: Good, great. Affect: Full range, intense. Thought process: Tangential. Thought content: Negative suicidal ideation, Negative homicidal ideation. Positive paranoia or other delusional content. References The messiah, states The messiah is a he-she. Then laughs. Positive hopeful/future-oriented thoughts. Cognition: Grossly intact Insight: fair Judgment: fair Arnold Suicide Severity Rating Scale (C-SSRS) 1) Wish to be : Patient has a wish to be or to fall asleep and not wake up. (Have you wished you were or wished you could sleep and not wake up?) No 2) Suicidal thoughts: Patient has general, non-specific thoughts of wanting to end their life/commit suicide. (Have you actually had any thoughts of killing yourself?) No Did the patient answer yes to question #2 above? No (if no, indicate not applicable for questions 3-5, then go to question 6) 3) Suicidal thoughts with method (without specific plan or intent to act): Patient has thoughts of suicide and has thought of at least one method, but has no specific plan and no intent to act. (Have you been thinking about how you might kill yourself?) not applicable 4) Suicidal intent without specific plan: Patient has active thoughts of killing themselves and hassome intent to act. (Have you had thoughts of killing yourself and had some intention of acting on them?) not applicable 5) Suicide intent with specific plan: Thoughts of killing oneself with details of plan fully or partially worked out and with some intent. (Have you started to work out how you might kill yourself? Do you intend to carry out this plan?) not applicable 6) Suicide behavior question: Have you ever done anything, started to do anything, or prepared to do anything to end your life? (examples: collected pills, obtained a gun, gave away valuables, wrote a will or a suicide note, started a suicide attempt but changed their mind, actually attempted suicide, etc). No Was the behavior over 3 months ago? not applicable Between 3 months and 1 week ago? not applicable Within the last week? not applicable Based upon the C-SSRS, the patient's acute suicide risk is low Decision making and disposition planning: Patient is a 53 y.o. male with a history of bipolar disorder who was brought by police and presentswith bizarre behavior, agitation, grandiosity, and psychosis. Per the patient's cousin and psychiatrist these symptoms have lasted approximately one week and are consistent with a manic episode. The patient has been agitated and hyperactive since last PM and continues to exhibit psychotic symptoms and bizarre behavior. He has required four-point restraints and multiple IM administrations of olanzapine throughout the evening to ensure the safety of the patient and staff. There is also a questionof medication compliance with the patient's subtherapeutic Tegretol level. The patient requires inpatient hospitalization for safety, as well as for management of his bipolar disorder and medication adjustment. At this time, the patient acknowledges his need for inpatient care and is willing to be admitted on a voluntary basis. The patient has given verbal consent for his entire medical record xin shared with his cousin Walter Oh and psychiatrist Dr. Nicole who have requested updates on his care should he be hospitalized. Based on this formulation, I believe the most appropriate plan at this time is: to refer the patient for voluntary inpatient hospitalization. Case reviewed with attending psychiatrist? No Provisional Diagnoses: [place] I: Bipolar I disorder, most recent episode manic [place] II: Deferred [place] III: Sleep apnea [place] IV: None [place] V: GAF 50 Is the plan to admit patient to an inpatient psychiatric unit? Yes --If yes, enter Psych ED treatment plan smartphrase below. --If no, enter outpatient disposition plan below. Plan: 1) Initiate bed search -patient has been presented to [facility] 2) Begin involuntary commitment paperwork, if necessary --must be renewed every 24 hours, if applicable 3) Reassess patient's condition and need for hospitalization once per shift 4) Update patient on progress of bed search once per shift or as new information becomes available -Patient aware of [facility] referral and likely admission later today 5) Patient will be assessed daily by medical provider and as needed 6) Initiate Long Stay Standard of Care if no bed available 7) Verbal sign-out to subsequent providers at change of shift Justino Thomas 06/05/2014 8:39 AM documented in this encounter ED Notes * Lesli Flor RN - 06/05/2014 5:26 PM EDT Gave report to Simran Venegas NP at [facility]. * Lesli Flor RN - 06/05/2014 4:18 PM EDT Sent to [facility]- pt care timeline and meds given in ED. * Lesli Flor RN - 06/05/2014 3:51 PM EDT Rec'd report on patient from Jamilah Bulmaro and assumed care of this patient at this time. * Jamilah Campoverde RN - 06/05/2014 3:50 PM EDT RN report to Lillian Flor and Gopi Nelson. * Jamilah Campoverde RN - 06/05/2014 3:21 PM EDT Await med supply. Have called pharmacy. * Jamilah Campoverde RN - 06/05/2014 2:45 PM EDT Pt is irritable, but redirectable. Given po fluids and phone at his request. Assisted pt making long distance phone call. Called someone to take care of his dog and was relieved about that. Remains on 15 checks for safety. * Jamilah Campoverde RN - 06/05/2014 1:30 PM EDT Pt showered. Asked for nicotrol inhaler which was ordered on standing order. Pt more pressured, irritable. Await response from clonazepam - will request additional med orders of pt escalates. Remainson 15 checks for safety. * Nikhil Hernandez RN - 06/05/2014 1:18 PM EDT Pt asking about status of inpatient psychiarty bed assignment. Informed Pt that bed assignment has not been made but will inform him when established. * Nikhil Hernandez RN - 06/05/2014 1:00 PM EDT Pt consumed entirety of lunch meal. Now conducting personal hygiene. Tray and spoons collected fromroom. * Jamilah Campoverde RN - 06/05/2014 11:30 AM EDT Pt sitting up, eating lunch. Accepted meds. Told pt his tegretol level, he is aware that it is a little low. * Jamilah Campoverde RN - 06/05/2014 11:13 AM EDT Called pharmacy, no supply sent as yet. Await tegretol level prior to giving carbemazapine, discussed with Dr Carreon. * Jamilah Campoverde RN - 06/05/2014 10:05 AM EDT Pt's cousin here to visit. * Jamilah Campoverde RN - 06/05/2014 9:30 AM EDT Pt met with Justino, medical student. Pt used phone to call his cousin. * Jamilah Campoverde RN - 06/05/2014 9:20 AM EDT Pt was cooperative with lab draws. Tangential speech. Shows insight into his illness. Denies drug use other than marijuana. * Jamilah Campoverde RN - 06/05/2014 9:15 AM EDT Awakened for vitals and breakfast. Dozing on and off, calm behavior, able to engage in interactions. Monitored during breakfast due to drowsiness to monitor for choking. * Jamilah Campoverde RN - 06/05/2014 9:00 AM EDT Continues on one to one obs. Napping in recliner. * Jamilah Campoverde RN - 06/05/2014 8:30 AM EDT Pt is significantly calmer, able to provide more information, agree with directions given. Restraints released, pt assisted up to the bathroom, voided large amount. Walked around area with RN and security clerk to orient to the unit, came back to his room. Provided recliner for comfort, change inposition. Pt remains on 1;1 observation. * Jamilah Campoverde RN - 06/05/2014 7:45 AM EDT Assumed care after hand-off from Lesli Castellanos RN. * Lesli Castellanos RN - 06/05/2014 7:21 AM EDT Patient continues to refuse vital signs. He relaxes briefly and then continues to squirm and try tosit up. Electric Repair Supervisor remains at doorway to room. Respiratory rate 20 and regular. * Lesli Castellanos RN - 06/05/2014 7:03 AM EDT Patient again escalating screaming obscenities fighting restraint. Order for 10 mg olanzapine IM fromrpsych resident. Patient able to get free of 1 restraint. Security and electroplating technician able to re secure the restraint. 10 Mg olanzapine given IM in left delt. * Lesli Castellanos RN - 06/05/2014 6:32 AM EDT Right hand restraint repositioned, then left hand restraint repositioned for comfort. Good capillary refill below all restraints. * Lesli Castellanos RN - 06/05/2014 6:20 AM EDT Patient periodically falls asleep but then quickly awakens and fights restraints and attempt to getup. Urinal offered but patient could not urinate. Fluids given. * Belkys Fagan RN - 06/05/2014 5:52 AM EDT Pt awake, slides quickly to edge of bed and attempts to pull bed frame up, refusing direction, loudphysically resisting RN and security clerk. Threatening verbally. Staff assist code called, Y Shayna Melo, will be down as soon, pt has broken L siderail on bed during this process. Pt medicated per physician orders, report to Sheila RN * Belkys Fagan RN - 06/05/2014 5:14 AM EDT Pt awake sitting up screaming at staff after attempting to exit bed Get this fucking thing off me!I want a fucking drink and I ain't saying Pretty Fucking Please with fucking sugar on it. Pt is provided juice, now lying on R side, appears to be resting with eyes closed and repirations even and non-labored. Security present, maintain safety checks q15, continue to monitor * Belkys Fagan RN - 06/05/2014 4:55 AM EDT Pt up attempts to exit bed. Pt assisted to comfortable spot in bed, belt is re- applied, no complaints at this time. Remains on safety checks, continue to monitor * Belkys Fagan RN - 06/05/2014 3:37 AM EDT Pt repositioned and re-oriented after briefly waking what the Fuck!. Appears to have resumed resting quietly on stretcher, safety checks in place, continue to monitor * Belkys Fagan RN - 06/05/2014 2:20 AM EDT Pt has been up oob x 2 walking into michael and has dramatically thrown himself to the floor x 2. + ataxia with eyes closed, attempts to assist pt back to bed and rails up have been ineffective. Consultation with Dr Melo, order for non- violent yudy belt. Pt appears somnolent, audible snoring at this time. When awake, pt continues as belligerent and disruptive to miieu * Belkys Fagan RN - 06/05/2014 1:50 AM EDT Pt now resting quietly on stretcher, lights on, continue to monitor * Belkys Fagan RN - 06/05/2014 1:34 AM EDT Pt with loud disruptive behaviors, wearing only pants frequently out of room swearing at staff. TC to Dr Melo for consultation, obtained orders. Pt removes shorts, now naked, standing in front of another pt's door squatting in phys ther style screaming fucking bring it on!! Are we gonna do this now? Pt is holding arms in fists in front of pelivis like He is pumping up for a fight. Unableto re-direct pt who is screaming a long list on medication allergies to all antipsychotics and moodstabilizers and demanding to speak to a juvenile court judge right now. Pt eventually able to redirect back into room after all other furniture is removed, stretcher remains. Pt provided Y safe scrubs. Additional security officers and Ed Coordinator present to administer injections. Pt able to re-direct back to room, 2 security officers remain on unit at this time. Lights are on, door is closed to minimize stimuli, remains on safety checks q15. * Lesli Flor RN - 06/05/2014 12:24 AM EDT Alerted Venecia Eli MD of patients allergy to Haldol per patient's report of making him psychotic. Per Dr. Eli , she stated to please give her a phone call if we need to give him anything more.Dr. Eli stated Do Not Remove Allergy. * Belkys Fagan RN - 06/05/2014 12:01 AM EDT Assumed care of pt, pt is without shirt, walking around unit up to BR. Plan for presentation to [facility], waiting on single room due to level of disinhibition. Remains on safety checks q15, continue to monitor. * Nurys Arriaza RN - 06/04/2014 11:04 PM EDT Pt sitting upright in recliner chair, pt snoring, arms crossed, pt's breaths sounds with mild irregularity. Pt's vitals taken, pt opened eyes, stated I'm fine don't need to go in the bed. Pt offered assisted, declined, pt offered drink/extra blankets, pt declined. Pt remained in the chair, without shirt on, pt has sunburned skin, round belly, pt calm and resting at this time. Pt continues to bemonitored for safety, q15min checks, door open, visible to nurse's desk, security present. * Lesli Flor RN - 06/04/2014 10:54 PM EDT Pt up and to the mens room. Ambulates without difficulty. Remains on 15 min checks for safety. * Lesli Flor RN - 06/04/2014 9:02 PM EDT Pt fast asleep on bed. Good effect from Haldol and and Clonopin. Remains on 15 min checks for safety. * Lesli Flor RN - 06/04/2014 8:51 PM EDT Pt was medicated with 10 mg Haldol and 1 mg Clonopin. Took willingly. * Lesli Flor RN - 06/04/2014 8:48 PM EDT [employer] enterered unit and approached this justowriter operator in patients room with 10 mg of HaldolIM and 1 mg of Klonopin. I stated that the patient was allergic to Haldol per Minna MEDINA who gave report on this patient- acute care certified nursing assistant stated it's not a real allergy, the patient said it made him crazy. * Evangelist Harrison CNA - 06/04/2014 7:32 PM EDT Pt dancing/gesturing with hands and feet in front of security. Was asked by female doctor to returnto his room, he obliged but used profanity, including the f-word. * Evangelist Harrison CNA - 06/04/2014 7:25 PM EDT Obtained an oral temperature on patient, who first asked if I wanted to take his temp rectally. Pt standing in doorway eating his ice cream, making a mess as ice cream drips on floor. Pt insists thathe wants to go home and demands to know when he can leave. * Lesli Flor RN - 06/04/2014 7:13 PM EDT Pt delivered a dinner tray. * Lesli Flor RN - 06/04/2014 6:49 PM EDT Pt stated that he wanted cheese burger, two , coke and fries - that's a woman's job. Pt stated That's a sexiest comment. Told patient I would get him a meal and peanut butter and crackers. Pt dancing in his room, going into others room- asked buyer internship MD to order Ativan to help patient to calm down. Pt doing upside down pushups in his room. Pt screamed out loud. With each out burst this justowriter operator would intervene and instruct patient on settling in- will give Ativan. Pt talking to Complaint Adjuster MD presently. * Lesli Flor RN - 06/04/2014 6:37 PM EDT Pt escorted to U from Main room by security and electroplating technician. Pt drove to [facility] from [facility] he used to attend when he was a child. Pt states he needed to 'cool off. The fire michel deep inside me. Pt was acting erratically , swinging a bag and scaring children- the children were secured in a safe area. The police and EMS were then called. Upon arrival patient was in critical careand patient rec'd 4 mg of Ativan - pt woke up at 18:00. Please see RN notes below. When patient wasmedically cleared patient was transferred to [facility]U. * Carmelita Gamino RN - 06/04/2014 6:00 PM EDT Pt awoke and stated, I want some juice and I need to take a dump. Pt amb steadily to bathroom and was given a sandwich and drink. Pt with rapid speech but coopperative with care. rn asked pt if heunderstood why he is here and pt asked for an explaination. rn explained that he went to a [facility] and was acting erraticly and the police were called. Pt states, I went there when I wasa child and I thought I could go there. I'm protestant. They provoked me. Pt states that he understands the reason he is here and will go to the apu for an evaluation. Pt amb steadily to apu. * Carmelita Gamino RN - 06/04/2014 4:58 PM EDT Pt sleeping soundly. Sat monitor on * Carmelita Gamino RN - 06/04/2014 4:45 PM EDT Assumed care of pt. Pt sleepy from ativan. Necklace removed. Vss. Await metabolism for psych eval * Leny Saez RN - 06/04/2014 3:49 PM EDT Patient was starting to escalate, dancing with just a pair of shorts in the glass door, coming out into the hallway and asking to sit on the stretcher, standing nieves naked in the bathroom of and after three request put his shorts back on. Asked patient if he would consider IV ativan and haldol and patient stated that he had an allergy to haldol where before he said NKDA. Stated he had haldol when he was in [facility] and that it made him psychotic. Patient agreed to 4mg IV ativan after which he promptly laid down and took a nap. * Leny Saez RN - 06/04/2014 3:17 PM EDTBed:A05
Expected date:
Expected time:
Means of arrival:
Comments:
CC1 * Leny Saez RN - 06/04/2014 3:08 PM EDT Patient states that he has not slept for seven days, is Bipolar, maniac, I saw god last night. says that he gets his care from [facility] in [place] and came to [place] to find his roots. Appears preoccupied with Hoahaoism and foreign languages. * Leny Saez RN - 06/04/2014 2:51 PM EDT Patient from [place] report that he drove onto the grounds of [place] saying he went thereis a child, appeared altered and swinging some sort of bag, children were sequestered, PD called, EMS arrived, report that patient has mental health issues, possibly Bipolar, arrives four pointed, handcuffed to stretcher, agreed to transfer calmly to ED stretcher in CC1, appears sunburned and red. * Siva Ambrosio MD - 06/04/2014 2:50 PM EDT History No chief complaint on file. Chief Complaint: altered mental status I saw this patient with the resident physician Dr. calixto. I have seen and examined the patient myself and am responsible for the care plan. HPI This is a 53 y.o. male who presents with altered mental status. Has a hx of bipolar. Hasn't slept in 7 days. Has care managed by mental health institution in [place]. Comes to [place] today to find my roots. Was found by EMS/police at a children's gathering. Was acutely agitated. Admitted to smoking something from his pipe found in his car. Denies any fevers. No pain. No n/v/d. Admits here to smoking some things yesterday and today. No trauma, some intermittent PERAZA for a long time now. No change. Not first or worst. No rashes or insect bites. Patient denies significant complaints of pain Past Medical History Diagnosis Date ??? Bipolar disorder History reviewed. No pertinent past surgical history. No family history on file. History Substance Use Topics ??? Smoking status: None ??? Smokeless tobacco: None ??? Alcohol Use: Review of Systems Constitutional: Negative for fever, chills, diaphoresis and fatigue. HENT: Negative for congestion, sore throat, rhinorrhea, sneezing, neck pain, neck stiffness and postnasal drip. Eyes: Negative for pain, discharge and itching. Respiratory: Negative for cough, chest tightness, shortness of breath and wheezing. Cardiovascular: Negative for chest pain, palpitations and leg swelling. Gastrointestinal: Negative for nausea, vomiting, abdominal pain, diarrhea, constipation, blood in stool, abdominal distention and anal bleeding. Genitourinary: Negative for dysuria, urgency, frequency, hematuria, flank pain and difficulty urinating. Musculoskeletal: Negative for myalgias and back pain. Skin: [place], warm and dry Neurological: Negative for dizziness, speech difficulty, numbness and headaches. Confusion, disorientation today Physical Exam There were no vitals taken for this visit. Physical Exam Constitutional: He is oriented to person, place, and time. He appears well- developed and well-nourished. No distress. HENT: Head: Normocephalic and atraumatic. Mouth/Throat: Oropharynx is clear and moist. No oropharyngeal exudate. Eyes: Conjunctivae normal and EOM are normal. Pupils are equal, round, and reactive to light. No scleral icterus. Neck: No JVD present. No tracheal deviation present. No thyromegaly present. Cardiovascular: Normal rate, regular rhythm, normal heart sounds and intact distal pulses. Exam reveals no gallop and no friction rub. No murmur heard. Pulmonary/Chest: Effort normal and breath sounds normal. No respiratory distress. He has no wheezes. He has no rales. He exhibits no tenderness. Abdominal: Soft. Bowel sounds are normal. He exhibits no distension and no mass. There is no tenderness. There is no rebound and no guarding. Musculoskeletal: Normal range of motion. He exhibits no edema and no tenderness. Lymphadenopathy: He has no cervical adenopathy. Neurological: He is alert and oriented to person, place, and time. Disoriented to place, time, events Skin: Skin is warm and dry. No rash noted. He is not diaphoretic. No erythema. No pallor. Psychiatric: He has a normal mood and affect. His behavior is normal. Procedures Procedures completed include: None Pertinent diagnostic study results include: EKG: none Labs: Labs Reviewed BLOOD BANK SPECIMEN TO HOLD Diagnostic Imaging: none MDM (ED Course and Disposition) MDM This is a 53 y.o. male who presents with agitation, no sleep for 7 days. H/o BP. Appears to be in amanic episode. Has not been taking his medications. He has nystagmus on his exam as well as admitting to smoking canabinnoids and so we feel this is the most likely cause for his acute agitation and we will not pursue infection w/u. No evidence of head trauma and without headaches we will not to scan his head. After he becomes less acutely intoxicated we will have a psychiatrist evaluate him for his bipolar. I anticipate he'll be medically cleared for their evaluation. Ronaldo Calixto MD 6:09 PM Critical Care Time: None Current Condition: Stable Siva Ambrosio MD 2:54 PM Siva Ambrosio MD 06/04/142041 documented in this encounter Miscellaneous Notes * Miscellaneous - Abdullahi Dorman MD - 06/29/2014 5:41 PM EDT * Miscellaneous - Abdullahi Dorman MD - 06/06/2014 6:46 AM EDT * Miscellaneous - Abdullahi Dorman MD - 06/06/2014 6:41 AM EDT * Miscellaneous - Abdullahi Dorman MD - 06/06/2014 6:37 AM EDT documented in this encounter Plan of Treatment Not on file documented as of this encounter Procedures Procedure Name Priority Date/Time Associated Diagnosis Comments CARBAMAZEPINE LEVEL STAT 06/05/2014 9 :45 AM EDT COMPREHENSIVE METABOLIC PANEL STAT 06/05/2014 9:45 AM EDT EKG 12-LEAD STAT 06/04/2014 3:14 PM EDT BLOOD BANK SPECIMEN TO HOLD Routine 06/04/2014 3:01 PM EDT documented in this encounter Results * (ABNORMAL) Comprehensive Metabolic Panel (06/05/2014 9:45 AM EDT) Sodium 139 133 - 145 mEq/L [facility] Potassium 3.7 3.3 - 5.3 mEq/L [facility] Chloride 97 96 - 108 mEq/L [facility] Carbon Dioxide 31(H) 22 - 29 mEq/L [facility] Anion Gap 11 7 - 16 [facility] Blood Urea Nitrogen 14 6 - 19 mg/dL [facility] Creatinine 0.89 0.50 - 1.30 mg/dL [facility] BUN Creatinine Ratio 15.7 [facility] Glucose 150(H) 70 - 99 mg/dL [facility] Protein 7.2 5.9 - 8.4 g/dL [facility] Albumin 4.6 3.2 - 5.2 g/dL [facility] Globulin 2.6 2.0 - 3.5 g/dL [facility] Albumin/Globulin Ratio 1.8 [facility] Bilirubin 0.3 0.0 - 1.0 mg/dL [facility] Calcium 9.0 8.6 - 10.4 mg/dL [facility] Alkaline Phosphatase 67 39 - 117 U/L [facility] AST 53(H) 0 - 37 U/L [facility] ALT 61(H) 0 - 40 U/L [facility] EGFR Non- >60 >60 [facility] EGFR >60 >60 [facility] Comment: -- eGFR UNITS OF MEASURE -- mL/min/1.73m(2) Comment EGFR SEE BELOW [facility] Comment: Clinical use of the eGFR result is not recommended if; - the patient's basal creatinine production is very abnormal, such as extremes of body size or muscle mass (eg. obese, severely malnourished, amputees, parapalegics, or other muscle-wasting diseases). - the patient has an unusual dietary intake (eg. vegetarian, creatine supplements). - the patient has an unstable creatinine level (eg. women, patients with serious co-morbid conditions, and hospitalized ?patients, particularly those with acute renal failure). Blood specimen (specimen) 06/05/2014 9:45 AM EDT 06/05/2014 9:55 AM EDT Leydi Draper DO CHEMISTRY ORDERABLES [facility] [address] [place] [address] Business Line Manager: Nabil Cherry MD [phone] * (ABNORMAL) Carbamazepine Level (06/05/2014 9:45 AM EDT) Carbamazepine Level 3.4(L) 4.0 - 12.0 ug/mL [facility] Blood specimen (specimen) 06/05/2014 9:45 AM EDT 06/05/2014 9:55 AM EDT Leydi Draper DO CHEMISTRY ORDERABLES Performing Organization Address [facility] Co de Phone Number [facility] [address] [place] [address] Business Line Manager: Bob Schmitt MD, DVM [phone] * EKG 12 lead (06/04/2014 3:14 PM EDT) 06/04/2014 3:14 PM EDT Siva Ambrosio MD ECG ORDERABLES Performing Organization Address [facility] Co de Phone Number [facility] * Blood Bank Specimen to Hold (06/04/2014 3:01 PM EDT) Blood Bank Specimen to hold [facility] 06/04/2014 3:01 PM EDT 06/04/2014 3:49 PM EDT Siva Ambrosio MD BLOOD BANK ORDERABLE S Performing Organization Address [facility] Co de Phone Number [facility] [address] [place] [address] Business Line Manager: Nabil Cherry MD [phone] documented in this encounter Visit Diagnoses Diagnosis Estelita ([facility])- Primary Bipolar I disorder, single manic episode, unspecified documented in this encounter Administered Medications Inactive Administered Medications - up to 3 most recent administrations Medication Order MAR Action Action Date Dose Rate Site carBAMazepine tablet 600 mg 600 mg, Oral, 2 times daily, First dose on Marcelle 06/04/14 at 2015 Given 06/05/2014 11:33 AM EDT 600 mg Given 06/04/2014 8:45 PM EDT 600 mg clonazePAM tablet 1 mg 1 mg, Oral, 2 times daily PRN, Anxiety, Starting on Sun06/04/14 at 2008, Possible side effects: lightheadedness, drowsiness, appetite changes Given 06/05/2014 1:22 PM EDT 1 mg diazepam tablet 10 mg 10 mg, Oral, Once, On Sun06/05/14 at 1500, For 1 dose, Possible side effects: Feeling lightheaded, sleepy, blurred vision Given 06/05/2014 4:02 PM EDT 10 mg diphenhydrAMINE injection 50 mg 50 mg, Intramuscular, Once, On Sun06/05/14 at 0115, For 1 dose, For IM administration, use large muscle. For IV Push, rate should not exceed 25mg/min. For IV Infusion, add to 50ml D5W or NS and infuse over 15mins. Given 06/05/2014 1:31 AM EDT 50 mg Left Deltoid LORAZEPAM 2 MG/ML IJ SOLN Starting on Sun06/04/14 at 1536, For 1 dose, LENY SAEZ: cabinet override LORazepam injection 4 mg 4 mg, Intravenous, Once, On Sun06/04/14 at 1530, For 1 dose, Possible side effects: lightheaded, drowsiness, dry mouth Given 06/04/2014 3:41 PM EDT 4 mg LORazepam tablet 2 mg 2 mg, Oral, Once, On Sun06/04/14 at 1845, For 1 dose, Possible side effects: lightheaded, drowsiness, dry mouth Given 06/04/2014 7:07 PM EDT 2 mg MIDAZOLAM HCL 2 MG/2ML IJ SOLN Starting on Sun06/05/14 at 0551, For 1 dose, BEN CURRY: cabinet override Given 06/05/2014 6:02 AM EDT 4 mg L eft Deltoid nicotine inhaler 1 Puff 1 Puff, Inhalation, As needed, Smoking cessation, Starting on Sun06/05/14 at 1323, (1) Do not exceed 16 cartridges per day. (2) Initial treatment lasts up to 12 weeks. (3) recommended dose is 6-16 cartridges/day. (4) Each 10mg cartridge delivers 4mg of nicotine. Possible side effects: throat irritation, bronchospasm Given 06/05/2014 4:00 PM EDT 1 Puff Given 06/05/2014 1:58 PM EDT 1 Puff OLANZAPINE 10 MG IM SOLR Starting on Sun06/05/14 at 0115, For 1 dose, BELKYS FAGAN: cabinet override OLANZapine injection 10 mg 10 mg, Intramuscular, Once, On Sun06/05/14 at 0115, For 1 dose, Reconstitute vial with 2.1 ml sterile water to yield 5mg/ml Given 06/05/2014 1:30 AM EDT 10 mg Right Deltoid OLANZapine injection 10 mg 10 mg, Intramuscular, Once, On Sun06/05/14 at 0700, For 1 dose, Reconstitute vial with 2.1 ml sterile water to yield 5mg/ml Given 06/05/2014 7:02 AM EDT 10 mg Left Deltoid paliperidone 24 hr tablet 6 mg 6 mg, Oral, Daily, First dose on Sun06/05/14 at 1445, Tablets should NOT be crushed or split. Given 06/05/2014 4:43 PM EDT 6 mg verapamil partial tablet 180 mg 180 mg, Oral, Every 12 hours scheduled (2 times per day), First dose on Sun06/04/14 at 2014 Given 06/05/2014 11:34 AM EDT 180 mg Given 06/04/2014 8:44 PM EDT 180 mg documented in this encounter Active and Recently Administered Medications Times are shown in EDT. Scheduled Medication Order 06/03/2014 06/04/2014 06/05/2014 carBAMazepine tablet 600 mg (CANCELED) 600 mg, Oral, 2 times daily, First dose on Sun06/04/14 at 2014 2044 (Given - Provider: Nurys Arriaza RN) 1133 (Given - Provider: Jamilah Campoverde RN - Comment: await level) diazepam tablet 10 mg (COMPLETED) 10 mg, Oral, Once, On Sun06/05/14 at 1500, For 1 dose, Possible side effects: Feeling lightheaded, sleepy, blurred vision 1602 (Given - Provid er: Lesli Flor RN - Comment: pt did not need this med at scheduled time- waited and gave when patient needed) diphenhydrAMINE injection 50 mg (COMPLETED) 50 mg, Intramuscular, Once, Sun06/05/14 at 0115, For 1 dose, For IM administration, use large muscle. For IV Push, rate should not exceed 25mg/min. For IV Infusion, add to 50ml D5W or NS and infuse over 15mins. 0131 (Given - Provid er: Belkys Fagan RN) LORazepam injection 4 mg (COMPLETED) 4 mg, Intravenous, Once, Sun06/04/14 at 1530, For 1 dose, Possible side effects: lightheaded, drowsiness, dry mouth 1541 (Given - Provider: Leny Saez RN - Comment: IVP stopped 15:42) LORazepam tablet 2 mg (COMPLETED) 2 mg, Oral, Once, Sun06/04/14 at 1845, For 1 dose, Possible side effects: lightheaded, drowsiness, dry mouth 1907 (Given - Provider: Lesli Flor RN) OLANZapine injection 10 mg (COMPLETED) 10 mg, Intramuscular, Once, Sun06/05/14 at 0115, For 1 dose, Reconstitute vial with 2.1 ml sterile water to yield 5mg/ml 0130 (Given - Provid er: Belkys Fagan RN)0700 (Due) OLANZapine injection 10 mg (COMPLETED) 10 mg, Intramuscular, Once, Sun06/05/14 at 0700, For 1 dose, Reconstitute vial with 2.1 ml sterile water to yield 5mg/ml 0702 (Given - Provid er: Lesli Castellanos RN) paliperidone 24 hr tablet 6 mg (CANCELED) 6 mg, Oral, Daily, First dose on Sun06/05/14 at 1445, Tablets should NOT be crushed or split. 1643 (Given - Provid er: Lesli Flor RN - Comment: med sent from pharm 2 hrs late- called twice) verapamil partial tablet 180 mg (CANCELED) 180 mg, Oral, Every 12 hours scheduled (2 times per day), First dose on Sun06/04/14 at 2014 2043 (Given - Provider: Nurys Arriaza RN) 1134 (Given - Provider: Jamilah Campoverde RN) PRN Medication Order 06/03/2014 06/04/2014 06/05/2014 clonazePAM tablet 1 mg (CANCELED) 1 mg, Oral, 2 times daily PRN, Anxiety, Starting 06/04/14 at 2008, Possible side effects: lightheadedness, drowsiness, appetite changes 1322 (Given - Provid er: Jamilah Campoverde RN) nicotine inhaler 1 Puff (CANCELED) 1 Puff, Inhalation, As needed, Smoking cessation, Starting Sun06/05/14 at 1323, (1) Do not exceed 16 cartridges per day. (2) Initial treatment lasts up to 12 weeks. (3) recommended dose is 6-16 cartridges/day. (4) Each 10mg cartridge delivers 4mg of nicotine. Possible side effects: throat irritation, bronchospasm 1358 (Given - Provid er: Jamilah Campoverde RN)1600 (Given - Provider: Lesli Flor RN) No Frequency Medication Order 06/03/2014 06/04/2014 06/05/2014 MIDAZOLAM HCL 2 MG/2ML IJ SOLN (COMPLETED) Starting on Sun06/05/14 at 0551, For 1 dose, BEN CURRY: cabinet override 0602 (Given - Provid er: Lesli Castellanos RN - Comment: per verbal order by Dr Back for pt escalation) documented in this encounter Care Teams Behavioral Consultant Relationship Specialty Start Date End Date Pcp, No PCP - Generic [facility] PCP 06/04/14 System, Provider Not In PCP - Generic [facility] PCP 06/05/14 documented as of this encounter
--- OUTSIDE RECORDS SUMMARY | 2024-06-18 14:59 | XMS_ITS | Referral Summary ---
Author Organization [facility] Address [address] [place] [address] Care Team Providers Care Highway Research Engineer Name Role Phone System, Provider Not In Unavailable Unavaila ble Allergies Active Allergy Reactions Criticality Noted Date Comments Haloperidol Lactate Other (See Comments) 2013 It makes me psychotic Medications Medication Sig Dispensed Refills Start Date End Date Status VERAPAMIL HCL 180 mg by Does not apply route 2 times daily. 0 Active CarBAMazepine (TEGRETOL PO) Take 600 mg by mouth 2 times daily. 0 Active ClonazePAM (KLONOPIN PO) Take 1 mg by mouth 2 times daily. 0 Active Social History Tobacco Use Types Packs/Day Years [...] - - Body Mass Index - - Functional Status Functional Status Response Date of [...] years old or older) No 06/04/2014 Active Plan of Treatment Not on file Insurance Payer Benefit Plan / Group Subscriber ID Effective Dates Phone Address Type MEDICARE MEDICARE A AND B [id number] 2005-Shruthi tiwari [address] [place] [address] Medicare MEDICAID [place] MED[place] [id number] 2014-Shruthi tiwari [address] [place] [address] [address] Research Engineer Relationship Specialty Start Date End Date System, Provider Not In PCP - Generic [facility] PCP 06/05/14
--- OUTSIDE RECORDS SUMMARY | 2024-06-18 14:59 | XMS_ITS | Encounter Summary ---
Author Organization [facility] [place] [address] Care Team Providers Care Mining And Quarrying Machinery Repairer Name Role Phone Siva Wiseman DO Primary Care Provider [phone] Encounter Details Date Type Department Care Team (Late st Contact Info) Description 06/17/2018 Telephone Nephrology [place] [phone] Hardik Dailey MD [facility] [place] [address] Social History Tobacco Use Types Packs/Day Years Used Date Smoking Tobacco: Never Smokeless Tobacco: Never Sex and Gender Information Value Date Recorded Sex Assigned at Not on file Gender Identity Not on file Sexual Orientation Not on file documented as of this encounter Miscellaneous Notes * Telephone Encounter - Hardik Dailey MD - 06/17/2018 12:53 PM EDT On review of labs, 25 Oh VIt Neftali resulted at 11ng/dl consistent with Vit D Deficiency. WIll start Cholecalciferol 50k units x 8 weeks. Sent Rx to [facility] in [place]. DIscussed with patient who expresses understanding. documented in this encounter Plan of Treatment Upcoming Encounters Date Type Department Care Team (Late st Contact Info) Description 07/02/2024 3:00 PM EDT Office Visit [place] [phone] Leo Flor MD [facility] [address] 08/12/2024 3:40 PM EDT Office [place] [phone] Siva Harrison MD [facility] [place] [address] 09/18/2024 1:00 PM EST Office Visit Cardiology at [address] [phone] Jj Davis MD [facility] [place] [address] documented as of this encounter Visit Diagnoses Not on filedocumented in this encounter Care Teams Mining And Quarrying Machinery Repairer Relationship Specialty Start Date End Date Siva Wiseman DO [address] [place] [address] PCP - General General Internal Medicine 06/12/1805/12 documented as of this encounter
--- OUTSIDE RECORDS SUMMARY | 2024-06-18 14:59 | XMS_ITS | Encounter Summary ---
Author Organization [facility] Address [address] [place] [id number] Care Team Providers Care Physician Practice Coordinator Name Role Phone Maryuri Severino MD Primary Care Provider Bernadine vailable Encounter Details Date Type Department Care Team (Latest Contact Info) Description 03/13/2018 10:09 EDT - 03/13/2018 23:59 EDT Hospital Encounter [facility] [address] [place] [address] Unknown, Provider, Discharge Disposition: Home or Self Care Social History Tobacco Use Types Packs/Day Years Used Date Smoking Tobacco: Never Assessed Sex and Gender Information Value Date Recorded Sex Assigned at Not on file Gender Identity Not on file Sexual Orientation Not on file documented as of this encounter Discharge Disposition Disposition Code Departure Means Destination Home or Self Shelter documented in this encounter Plan of Treatment Not on file documented as of this encounter Visit Diagnoses Not on filedocumented in this encounter Care Teams Physician Practice Coordinator Relationship Specialty Start Date End Date Maryuri Severino MD PCP - General 05/23/10 03/14/18 documented as of this encounter
--- OUTSIDE RECORDS SUMMARY | 2024-06-18 14:59 | XMS_ITS | Encounter Summary ---
Author Organization [facility] [place] [address] Care Team Providers Care Poultry Culler Name Role Phone Siva Wiseman DO Primary Care Provider [phone] Encounter Details Date Type Department Care Team (Latest Contact Info) Description 05/12/2019 11:30 AM EDT Office Visit [place] [address] [facility] [place] [address] Nephrolithiasis; Vitamin D deficiency; Hypertension, unspecified type Social History Tobacco Use Types Packs/Day Years Used Date Smoking Tobacco: Never Smokeless Tobacco: Never Sex and Gender Information Value Date Recorded Sex Assigned at Not on file Gender Identity Not on file Sexual Orientation Not on file documented as of this encounter Last Filed Vital Signs Vital Sign Reading Time Taken Comments Blood Pressure 156/102 05/12/2019 11:17 AM EDT Pulse 86 05/12/2019 11:17 AM EDT Temperature - - Respiratory Rate - - Oxygen Saturation - - Inhaled Oxygen Concentration - - Weight 146.5 kg (323 lb) 05/12/2019 11:17 AM EDT Height 180.3 cm (5' 11) 05/12/2019 11:17 AM EDT Body Mass Index 45.05 05/12/2019 11:17 AM EDT documented in this encounter Progress Notes * Hardik Dailey MD - 05/12/2019 11:30 AM EDT PATIENT: Martín Mitchell : 1960 Interval history: Patient denies any recurrence of stones in the interval. He reports following up with urology and they deny any anatomic obstruction. He continues to have daily meat intake. He is motivated to lose weight. Has noticed an up trend in his blood pressure since discontinuing valsartan. Assessment/Plan: #Nephrolithiasis: Stone Analysis:Bladder calculi obtained via cystoscopy at [facility] facility with analysis ??Of 100%uric acid Per litholink 06/29 24hours volume 3.47 Liters, Uric acid level 2.57 (with elevated super saturation) . Patient continues on KCitrate for alkalization of urine and counseled on restriction of animal proteins (lower obligate acid excretion) Plan: Will follow up BMP, and Uric acid. Continue to focus diet in stone management with an emphasis on fluid intake 2-3 liters daily??(patient reports ~1 gallon daily)??and Salt restriction. Continue to focus on limiting acid intake (animal proteins/Beer) Continue alkalinize urine using Potassium Citrate 20meq??BID. ?? Vitamin D deficiency Vit d still low at 12ng/dl Repeat course ergocalciferol 50K units x 12weeks. HTN BP: 156/102. Patient is not monitoring at home. He will consider measurement at grocery store for better understanding of trend. Was discontinued from valsartan due to recall and remains on verapamil. Rather than intensification of therapy right now he would prefer to focus on weight loss and will follow up with PCP in June. Renal Clinic Follow-Up Plan: 6 mos Outpatient medications: Current Outpatient Medications on File [...] Take 1 mg by mouth as needed. ??? testosterone (TESTIM, VOGELXO) 50 mg/5 gram (1 %) Gel 5 No current facility-administered medications on file prior to visit. MEDICATIONS: Allergies Allergen Reactions ??? Lisinopril CAUSES COUGH ROS: Constitutional - No fevers, chills, weight loss Skin - No rash or itchy skin HEENT - No headaches, visual changes, oral mucosa dryness Resp - No cough, shortness of breath CV - No chest pain, leg swelling, difficulty breathing lying flat GI - No nausea, vomiting,change in bowel habits/abdominal pain - No change in urine output. No pain urinating or blood in urine. Neuro - No weakness. No numbness/ tingling in extremities. MSK- No joint pain/swelling PHYSICAL EXAM: Last value Temperature Heart Rate Heart Rate: 86 Blood Pressure BP: (!) 156/102 Respiratory Rate SpO2 Appearance - Alert, Comfortable. Obese. Skin - No exanthem. HEENT - Sclera white. Mucous membranes moist. Chest:. Lungs clear to ausculatation w/o wheezes/ rhonchi/ crackles. Heart - S1 and S2 clear w/o murmur, gallop, or rub. JVP not elevated. Abd - Soft. + BS. No bruit. Non tender. Ext - . Warm. No cyanosis. No dependent edema. Neuro - No asterixis. STUDIES: Labs: CBC: No results for input(s): WBC, HGB, PLATELET in the last 7068 hours. Chemistry: Recent Labs 10/16/18 1026 NA 140 K 4.8 CL 102 CO2 23 BUN 23* CREATININE 0.88 GLUCOSE 114 Recent Labs 10/16/18 1026 CALCIUM 9.1 Hardik Dailey MD, MPH Section of Nephrology #[id number] documented in this encounter Plan of Treatment Upcoming Encounters Date Type Department Care Team (Late st Contact Info) Description 07/02/2024 3:00 PM EDT Office [place] [phone] [facility] [place] [address] 08/12/2024 3:40 PM EDT [place] [address] [facility] [place] [address] 09/18/2024 1:00 PM EST Office Visit Cardiology at [address] [address] [facility] [place] [address] documented as of this encounter Procedures Procedure Name Priority Date/Time Associated Diagnosis Comments VITAMIN D, 25-HYDROXY Routine 05/12/2019 11:57 AM EDT Nephrolithiasis Vitamin D deficiency URIC ACID Routine 05/12/2019 11:57 AM EDT Nephrolithiasis BASIC METABOLIC PANEL Routine 05/12/2019 11:57 AM EDT Nephrolithiasis documented in this encounter Results * Uric acid (03/03/2021 3:32 PM EDT) Uric Acid 5.7 3.5 - 8.5 mg/dL [facility] Blood specimen (specimen) 03/03/2021 3:32 PM EDT 03/03/2021 3:44 PM EDT Narrative Resulting Agency Comment Spec In Lab Hardik Dailey MD CHEMISTRY ORDERABLES [facility] [place] [address] * (ABNORMAL) Vitamin D, 25-Hydroxy (03/03/2021 3:32 PM EDT) Vitamin D Total 25 OH <5(L) 21 - 100 ng/mL [facility] Vit D Interp Deficient [facility] Blood specimen (specimen) 03/03/2021 3:32 PM EDT 03/03/2021 3:44 PM EDT Narrative Resulting Agency Comment Spec In Lab Hardik Dailey MD CHEMISTRY ORDERABLES [facility] [place] [address] * (ABNORMAL) Basic Metabolic Panel (non-fasting) (03/03/2021 3:32 PM EDT) Glucose 308(H) 65 - 199 mg/dL [facility] Comment:Diabetes: >=200 mg/d L plus symptoms Blood Urea Nitrogen 23(H) 10 - 20 mg/dL [facility] Creatinine 0.80 0.80 - 1.50 mg/dL [facility] Sodium 132(L) 135 - 145 mmol/L [facility] Potassium 4.1 3.5 - 5.0 mmol/L [facility] Comment: Please note: ??Patients with WBC >100,000 may have falsely elevated Potassium levels. ??For accurate Potassium quantification in these patients send serum separator tube (gold top) for subsequent determinations. ??Contact the Clinical Chemistry Laboratory if there are any questions. Chloride 96(L) 98 - 107 mmol/L [facility] Carbon Dioxide 21(L) 22 - 31 mmol/L [facility] Anion Gap 15 5 - 15 mmol/L [facility] Calcium 9.1 8.5 - 10.5 mg/dL [facility] Est Glomerular Filtration Rate 98 >=60 mL/min/1. 73 m?? [facility] Comment: This patient? s estimated glomerular filtration rate (eGFR) is between 98 mL/min/1.73 m2 (patients with less muscle mass per kg body weight) and 114 mL/min/1.73 m2 (patients with more muscle mass per kg body weight) as determined by the CKD-EPI equation. Assessment of eGFR is not appropriate when creatinine concentrations are rapidly changing. For clinical decisions where creatinine clearance will affect therapy, a 24-hour urine creatinine clearance may be advised. Assignment of CKD stage 1 - 5 for patients with an eGFR near the transition point between stages may be based on clinical assessment of muscle mass and symptoms in addition to eGFR. Blood specimen (specimen) 03/03/2021 3:32 PM EDT 03/03/2021 3:44 PM EDT Narrative Resulting Agency Comment Spec In Lab Hardik Dailey MD CHEMISTRY ORDERABLES Performing Organization Address [facility] Co de Phone Number [facility] [place] [address] * (ABNORMAL) Vitamin D, 25-Hydroxy (05/12/2019 11:57 AM EDT) Vitamin D Total 25 OH 12(L) 30 - 100 ng/mL [facility] Comment: Deficient <10 ng/mL Insufficient 10 to 29 ng/mL Sufficient 30 to 100 ng/mL Potential Intoxication >100 ng/mL According to the US National Osteoporosis Foundation, Vitamin D concentrations >30 ng/mL are sufficient to protect bone health. ??The National Kidney Foundation has similarly stated that patients with Vitamin D concentrations <30ng/mL should be considered to be insufficient or deficient. http://Re.nooble.Zmqnw.com.cn/nkf-guidelines http://CloudPay/nejm-VitD The IDS iSYS Vitamin D Immunoassay detects both 25-OH Vitamin D2 and 25-OH Vitamin D3, but only a total Vitamin D concentration is reported. Blood specimen (specimen) 05/12/2019 11:57 AM EDT 05/12/2019 1:50 PM EDT Narrative Resulting Agency Comment Spec In Lab Hardik Dailey MD CHEMISTRY ORDERABLES Performing Organization Address [facility]/ZIP Co de Phone Number [facility] [place] [address] * (ABNORMAL) Basic Metabolic Panel (non-fasting) (05/12/2019 11:57 AM EDT) Glucose 108 65 - 199 mg/dL [facility] Comment:Diabetes: >=200 mg/d L plus symptoms Blood Urea Nitrogen 15 10 - 20 mg/dL [facility] Creatinine 0.68(L) 0.80 - 1.50 mg/dL [facility] Sodium 140 135 - 145 mmol/L [facility] Potassium 4.4 3.5 - 5.0 mmol/L [facility] Comment: Please note: ??Patients with WBC >100,000 may have falsely elevated Potassium levels. ??For accurate Potassium quantification in these patients send serum separator tube (gold top) for subsequent determinations. ??Contact the Clinical Chemistry Laboratory if there are any questions. Chloride 103 98 - 107 mmol/L [facility] Carbon Dioxide 25 22 - 31 mmol/L [facility] Anion Gap 12 5 - 15 mmol/L [facility] Calcium 9.2 8.5 - 10.5 mg/dL [facility] Est Glomerular Filtration Rate 107 >=60 mL/min/1. 73 m?? [facility] Comment: The eGFR was calculated using the CKD-EPI equation. As with all creatinine based estimates of kidney function, eGFR values calculated with the CKD-EPI equation are not accurate in patients with acute kidney failure, extremes of body mass or the acutely ill. [email or web address]NE[facility]kf eGFR 124 >=60 mL/min/1. 73 m?? [facility] Comment: The eGFR was calculated using the CKD-EPI equation. As with all creatinine based estimates of kidney function, eGFR values calculated with the CKD-EPI equation are not accurate in patients with acute kidney failure, extremes of body mass or the acutely ill. [email or web address] Blood specimen (specimen) 05/12/2019 11:57 AM EDT 05/12/2019 12:06 PM EDT Narrative Resulting Agency Comment Spec In Lab Hardik Dailey MD CHEMISTRY ORDERABLES [facility] [place] [address] * Uric acid (05/12/2019 11:57 AM EDT) Uric Acid 6.9 3.5 - 8.5 mg/dL [facility] Blood specimen (specimen) 05/12/2019 11:57 AM EDT 05/12/2019 12:06 PM EDT Narrative Resulting Agency Comment Spec In Lab Hardik Dailey MD CHEMISTRY ORDERABLES [facility] [place] [address] documented in this encounter Visit Diagnoses Diagnosis Nephrolithiasis Calculus of kidney Vitamin D deficiency Unspecified vitamin D deficiency Hypertension, unspecified type documented in this encounter Care Teams Poultry Culler Relationship Specialty Start Date End Date Siva Wiseman DO [address] [place] [address] PCP - General General Internal Medicine 06/12/1805/12 documented as of this encounter
--- OUTSIDE RECORDS SUMMARY | 2024-06-18 14:59 | XMS_ITS | Encounter Summary ---
Author Organization [facility] [place] [address] Care Team Providers Care Catalyst Concentration Operator Name Role Phone Cody Ahumada DO Primary Care Provider [phone] Reason for Visit * Consultation (Routine) - Closed Specialty Diagnoses / Procedures Referred By Henry tiwari Referred To Contact Nephrology Diagnoses Multiple abnormalities on 24 hour urine specimen Procedures Eval and Treat Olayinka Giron MD [address] [place] [id number] [facility] [address] [place] [id number] Referral ID Status Reason Start Date Expiration Date Visits Re quested Visits Authorized [id number] Closed 05/13/2018 05/13/2019 1 1 Encounter Details Date Type Department Care Team (Latest Contact Info) Description 06/11/2018 1:30 PM EDT Office Visit [place] [address] Hardik Dailey MD [facility] [place] [address] Nephrolithiasis; Vitamin D deficiency Social History Tobacco Use Types Packs/Day Years Used Date Smoking Tobacco: Never Smokeless Tobacco: Never Sex and Gender Information Value Date Recorded Sex Assigned at Not on file Gender Identity Not on file Sexual Orientation Not on file documented as of this encounter Last Filed Vital Signs Vital Sign Reading Time Taken Comments Blood Pressure 134/88 06/10/2018 4:17 PM EDT Pulse 88 06/10/2018 4:17 PM EDT Temperature - - Respiratory Rate - - Oxygen Saturation - - Inhaled Oxygen Concentration - - Weight 143.8 kg (317 lb) 06/10/2018 4:17 PM EDT Height 180.3 cm (5' 11) 06/10/2018 4:17 PM EDT Body Mass Index 44.21 06/10/2018 4:17 PM EDT documented in this encounter Progress Notes * Hardik Dailey MD - 06/11/2018 1:30 PM EDT PATIENT: Martín Mitchell : 1960 REASON FOR CONSULTATION: Nephrolithiasis Assessment/Plan: #Nephrolithiasis: Stone Analysis:Bladder calculi obtained via cystoscopy at [facility] facility with analysis Of 100% uric acid 24 hour collection Data done at outside facility: Volume/Adequecy: volume 1900cc and Cr exrection ~19mg/kg which is on low end of adequacy for a male. Ca 252mg/24 Citrate 524mg/24 Uric acid 1278mg/24, Na 274mg 24hours Plan: Will assess BMP, PTH, Vit D and Uric acid. Will also ask patient to repeat 24 hour collection(via litholink) Patient counseled on the importance of diet in stone management with an emphasis on fluid intake 2-3 liters daily (patient reports ~1 gallon daily) and Salt restriction. Patient also has high proteinintake, (counseled on the importance of limiting animal protein to reduce excretable acid). Patientdoes seem resistant to cutting back. Patient could benefit from dietary counseling (he is considering gastric sleeve) WIll attempt to alkalinize urine using Potassium Citrate 20meq BID. Will start xanthine oxidase inhibitor if stones recurrent despite alkali therapy or if serum level is elevated. Recommend evaluation for ongoing chronic diarrhea (inflammatory bowel syndromes are associated withuric acid/calcium oxalate stone formation. HPI: Patient reports as referral from Urology following the discovery of a bladder calcui that was 100% uric acid. Patient presented to Urology with prostate symtoms including urinary urgency/frequency and dysuria. Patient is obese and has had ongoing issues with diet. He reports having a large red meatintake. He was limiting salt intake (he activly adds to food) but stopped doing this when his 24 collection returned elevated despite efforts. He is hypertensive and in the past has been on chlorthalidone. He denies known urinary tract infections. Social history: Occupational. Former tobacco user. Denies Illicit Drug Use Family History No Known Family History of nephrolithiasis No past medical history on file. No past surgical history on file. No family history on file. Social History Narrative None on file Outpatient medications: Current Outpatient Prescriptions on File Prior to Visit Medication Sig Dispense Refill ??? ARIPiprazole (ABILIFY) 10 mg Tablet Take 10 mg by mouth daily. ??? ketoconazole (NIZORAL) 2 % Cream as needed. ??? LORazepam (ATIVAN) 1 mg Tablet Take 1 mg by mouth as needed. ??? testosterone (TESTIM, VOGELXO) 50 mg/5 gram (1 %) Gel 5 ??? verapamil (CALAN-SR) 180 mg Tablet Sustained Release Take 180 mg by mouth 2 times daily. ??? [DISCONTINUED] ARIPiprazole (ABILIFY) 5 mg Tablet ??? [DISCONTINUED] chlorthalidone (HYGROTEN) 25 mg Tablet Take 25 mg by mouth daily. No current facility-administered medications on file prior to visit. MEDICATIONS: Allergies Allergen Reactions ??? Lisinopril CAUSES COUGH ROS: Constitutional - No fevers, chills, weight loss Skin - No rash or itchy skin HEENT - No headaches, visual changes Resp - No cough, shortness of breath CV - No chest pain, leg swelling, difficulty breathing lying flat GI - Ongoing watery diarheaha - No change in urine output. No pain urinating or blood in urine. Neuro - No weakness. No numbness/ tingling in extremities. PHYSICAL EXAM: Last value Temperature Heart Rate Heart Rate: 88 Blood Pressure BP: 134/88 Respiratory Rate SpO2 Appearance - Alert, Comfortable. Obsese Skin - No exanthem. HEENT - Sclera white. Mucous membranes moist. Chest:. Lungs clear to ausculatation w/o wheezes/ rhonchi/ crackles. Heart - S1 and S2 clear w/o murmur, gallop, or rub. JVP not elevated. Abd - Soft. + BS. No bruit. Non tender. Ext - . Warm. No cyanosis. No dependent edema. Neuro - No asterixis. Hardik Dailey MD, MPH Section of Nephrology #[id number] documented in this encounter Plan of Treatment Upcoming Encounters Date Type Department Care Team (Late st Contact Info) Description 07/02/2024 3:00 PM EDT Office [place] [address] Leo Flor MD [facility] [place] [address] 08/12/2024 3:40 PM EDT [place] [address] Siva Harrison MD [facility] [place] [address] 09/18/2024 1:00 PM EST Office [place] [address] jJ Davis MD [facility] [place] [address] documented as of this encounter Procedures Procedure Name Priority Date/Time Associated Diagnosis Comments PTH Routine 06/11/2018 1:52 PM EDT Nephrolithiasis VITAMIN D, 25-HYDROXY Routine 06/11/2018 1:52 PM EDT Nephrolithiasis Vitamin D deficiency URIC ACID Routine 06/11/2018 1:52 PM EDT Nephrolithiasis BASIC METABOLIC PANEL Routine 06/11/2018 1:52 PM EDT Nephrolithiasis documented in this encounter Results * (ABNORMAL) Vitamin D, 25-Hydroxy (06/11/2018 1:52 PM EDT) Vitamin D Total 25 OH 11(L) 30 - 100 ng/mL [facility] Comment: Deficient <10 ng/mL Insufficient 10 to 29 ng/mL Sufficient 30 to 100 ng/mL Potential Intoxication >100 ng/mL According to the US National Osteoporosis Foundation, Vitamin D concentrations >30 ng/mL are sufficient to protect bone health. ??The National Kidney Foundation has similarly stated that patients with Vitamin D concentrations <30ng/mL should be considered to be insufficient or deficient. http://Dropost.it/nkf-guidelines http://Dropost.it/nejm-VitD The IDS iSYS Vitamin D Immunoassay detects both 25-OH Vitamin D2 and 25-OH Vitamin D3, but only a total Vitamin D concentration is reported. Blood specimen (specimen) 06/11/2018 1:52 PM EDT 06/12/2018 7:47 AM EDT Narrative Resulting Agency Comment Spec In Lab Hardik Dailey MD CHEMISTRY ORDERABLES Performing Organization Address [facility] Co de Phone Number [facility] [place] [address] * Uric acid (06/11/2018 1:52 PM EDT) Uric Acid 7.2 3.5 - 8.5 mg/dL [facility] Blood specimen (specimen) 06/11/2018 1:52 PM EDT 06/11/2018 1:56 PM EDT Narrative Resulting Agency Comment Spec In Lab Hardik Dailey MD CHEMISTRY ORDERABLES Performing Organization Address City/[facility] Co de Phone Number [facility] [place] [address] * PTH (06/11/2018 1:52 PM EDT) Parathyroid Hormone 61 15 - 65 pg/mL [facility] Blood specimen (specimen) 06/11/2018 1:52 PM EDT 06/11/2018 1:56 PM EDT Narrative Resulting Agency Comment Spec In Lab Hardik Dailey MD CHEMISTRY ORDERABLES Performing Organization Address City/[facility]/ZIP Co de Phone Number [facility] [place] [address] * (ABNORMAL) Basic Metabolic Panel (non-fasting) (06/11/2018 1:52 PM EDT) Glucose 98 65 - 199 mg/dL [facility] Comment:Diabetes: >=200 mg/d L plus symptoms Blood Urea Nitrogen 21(H) 10 - 20 mg/dL [facility] Creatinine 0.77(L) 0.80 - 1.50 mg/dL [facility] Sodium 138 135 - 145 mmol/L [facility] Potassium 4.1 3.5 - 5.0 mmol/L [facility] Comment: Please note: ??Patients with WBC >100,000 may have falsely elevated Potassium levels. ??For accurate Potassium quantification in these patients send serum separator tube (gold top) for subsequent determinations. ??Contact the Clinical Chemistry Laboratory if there are any questions. Chloride 96(L) 98 - 107 mmol/L [facility] Carbon Dioxide 23 22 - 31 mmol/L [facility] Anion Gap 19(H) 5 - 15 mmol/L [facility] Calcium 8.8 8.5 - 10.5 mg/dL [facility] Est Glomerular Filtration Rate 102 >=60 mL/min/1. 73 m?? [facility] Comment: The eGFR was calculated using the CKD-EPI equation. As with all creatinine based estimates of kidney function, eGFR values calculated with the CKD-EPI equation are not accurate in patients with acute kidney failure, extremes of body mass or the acutely ill. http://Dropost.it/[facility]ON[facility] eGFR 118 >=60 mL/min/1. 73 m?? [facility] Comment: The eGFR was calculated using the CKD-EPI equation. As with all creatinine based estimates of kidney function, eGFR values calculated with the CKD-EPI equation are not accurate in patients with acute kidney failure, extremes of body mass or the acutely ill. http://Dropost.it/[facility]ON[facility] Blood specimen (specimen) 06/11/2018 1:52 PM EDT 06/11/2018 1:56 PM EDT Narrative Resulting Agency Comment Spec In Lab Hardik Dailey MD CHEMISTRY ORDERABLES Performing Organization Address City/State/[facility] Co de Phone Number [facility] [place] [address] documented in this encounter Visit Diagnoses Diagnosis Nephrolithiasis Calculus of kidney Vitamin D deficiency Unspecified vitamin D deficiency documented in this encounter Care Teams Catalyst Concentration Operator Relationship Specialty Start Date End Date Cody Ahumada DO PCP - General General Internal Medicine 09/28/1705/14 documented as of this encounter
--- OUTSIDE RECORDS SUMMARY | 2024-06-18 14:59 | XMS_ITS | Encounter Summary ---
Author Organization [facility] Address [address] [place] [address] Care Team Providers Care Quantitative Researcher Name Role Phone Unknown, Provider Primary Care Provider Encounter Details Date Type Department Care Team (Late st Contact Info) Description 09/06/2009 Orders Only [facility] Laboratory Services - [facility] ([facility]) [address] [place], [place] [id number] Annia Lilly MD [address] [place] [id number] Social History Tobacco Use Types Packs/Day Years Used Date Smoking Tobacco: Never Assessed Sex and Gender Information Value Date Recorded Sex Assigned at Not on file Gender Identity Not on file Sexual Orientation Not on file documented as of this encounter Plan of Treatment Not on file documented as of this encounter Procedures Procedure Name Priority Date/Time Associated Diagnosis Comments SURGICAL PATHOLOGY Routine 09/06/2009 0:00 EDT documented in this encounter Results * SURGICAL PATHOLOGY (09/06/2009 0:00 EDT) Pathology Report: SURGICAL PATHOLOGY REPORT ? Reports generated via electronic interface contain original data; ? however they are lacking the format of the original report. ? Caution should be taken when reading/interpreti ng unformatted reports. ? Name: ? MARTÍN MITCHELL ? Accession #: ? [id number] ? : ? 1960 (Age: 48) ??M ? Collect Date: ? 09/06/2009 ? Location: ? [facility] ? Receive Date: ? 09/06/2009 ? Provider: ANNIA LILLY MD ? Copy to: SALBADOR ERENDIRA MD ? Final Pathologic Diagnosis: ? A. ?Inferior turbinate, left, resection: ? 1. ?Respiratory mucosa with dilated, congested vessels and stromal ? edema. ? 2. ? Septum with no pathologic features. ? B. ?Inferior turbinate, right, resection: ? 1. ?Respiratory mucosa with dilated, congested vessels and stromal ? edema. ? 2. ? Septum with no pathologic features. ? Document reviewed and electronically signed by: ? Bereket Ybarra, MD ? Report ??Date: 09/14/2009 13:45 ? By the signature above, the attending physician certifies that he/she has ? personally conducted a gross and/or microscopic examination of the described ? specimens and rendered or confirmed the above diagnosis. ? Specimen(s) Received: ? A. ?Left inferior turbinate (#1) ? B. ? Right inferior turbinate (#2) ? Clinical History: ? Deviated nasal septum; hypertrophy of inferior turbinates ? Gross Description: ? Received in formalin labelled Martín Mitchell and left inferior turbinate is a 3.0 x 0.6 x 0.5 cm piece of tissue that is largely surfaced by sotelo-purple, smooth mucosa. ??The resection margin is inked blue and the specimen is sectioned to reveal a isabel-red, spongy cut surface with central firm, isabel-white bone. ? Actuary Clerk sections are submitted in (A) following decalcification. ? Received in formalin labelled Marítn Mitchell and right inferior turbinate is a 2.1 x 0.8 x 0.6 cm piece of tissue that is largely surfaced by a sotelo-blue, ? smooth mucosa. ??The resection margin is inked blue. ??Sectioning reveals a ? isabel-red, spongy cut surface with central firm, isabel-white bone. ??Actuary Clerk ?? sections are submitted in (B) following decalcification. ??(Mariella Robbins)/kmm ? End of Report ? [facility] 09/06/2009 09/06/2009 17: 50 EDT Annia Lilly MD PATHOLOGY ORDERABLES Performing Organization Address City/State/[facility] Co de Phone Number [facility] [address] [place] [address] documented in this encounter Visit Diagnoses Not on filedocumented in this encounter Care Teams Quantitative Researcher Relationship Specialty Start Date End Date Unknown, Provider, PCP - General 09/06/09 05/22/10 documented as of this encounter
--- OUTSIDE RECORDS SUMMARY | 2024-06-18 14:59 | XMS_ITS | Encounter Summary ---
Author Organization [facility] [place] [address] Care Team Providers Care Desulfurizer Hand Name Role Phone Leo Alegre DO Primary Care Provider +1- [phone] Encounter Details Date Type Department Care Team (Latest Contact Info) Description 03/03/2021 3:00 PM EDT Laboratory Appointment Lab [address] [address] Nephrolithiasis; Vitamin D deficiency Social History Tobacco [...] 3:00 PM EDT Office [place] [phone] Leo Flor MD [facility] [place] [address] 08/12/2024 3:40 PM EDT Office [place] [phone] Siva Harrison MD [facility] [place] [address] 09/18/2024 1:00 PM EST Office Visit Cardiology at [address] [phone] Jj Davis MD [facility] [place] [address] documented as of this encounter Procedures Procedure Name Priority Date/Time Associated Diagnosis Comments HC VITAMIN D TOTAL-25 HYDROXY Routine 03/03/2021 3:32 PM EDT Vitamin D deficiency HC VENIPUNCTURE Routine 03/03/2021 3:32 PM EDT Nephrolithiasis BASIC METABOLIC PANEL Routine 03/03/2021 3:32 PM EDT Nephrolithiasis documented in this encounter Results * (ABNORMAL) Basic Metabolic Panel (non-fasting) (03/03/2021 3:32 PM EDT) Glucose 308(H) 65 - 199 mg/dL [facility] Comment:Diabetes: >=200 mg/d L plus symptoms Blood Urea Nitrogen 23(H) 10 - 20 mg/dL [facility] Creatinine 0.80 0.80 - 1.50 mg/dL [facility] Sodium 132(L) 135 - 145 mmol/L [facility] Potassium 4.1 3.5 - 5.0 mmol/L [facility] Comment: Please note: ??Patients with WBC >100,000 may have falsely elevated Potassium levels. ??For accurate Potassium quantification in these patients send serum separator tube (gold top) for subsequent determinations. ??Contact the Clinical Chemistry Laboratory if there are any questions. Chloride 96(L) 98 - 107 mmol/L [facility] Carbon Dioxide 21(L) 22 - 31 mmol/L [facility] Anion Gap 15 5 - 15 mmol/L [facility] Calcium 9.1 8.5 - 10.5 mg/dL [facility] Est Glomerular Filtration Rate 98 >=60 mL/min/1. 73 m?? [facility] Comment: This patient? s estimated glomerular [...] Dailey MD CHEMISTRY ORDERABLES Performing Organization Address [facility]/ZIP Co de Phone Number [facility] [place] [address] * (ABNORMAL) Vitamin D, 25-Hydroxy (03/03/2021 3:32 PM EDT) Vitamin D Total 25 OH <5(L) 21 - 100 ng/mL [facility] Vit D Interp Deficient [facility] Blood specimen (specimen) 03/03/2021 3:32 PM EDT 03/03/2021 3:44 PM EDT Narrative Resulting Agency Comment Spec In Lab Hardik Dailey MD CHEMISTRY ORDERABLES [facility] [place] [address] * Uric acid (03/03/2021 3:32 PM EDT) Uric Acid 5.7 3.5 - 8.5 mg/dL [facility] Blood specimen (specimen) 03/03/2021 3:32 PM EDT 03/03/2021 3:44 PM EDT Narrative Resulting Agency Comment Spec In Lab Hardik Dailey MD [place] [address] documented in this encounter Visit Diagnoses Diagnosis Nephrolithiasis Calculus of kidney Vitamin D deficiency Unspecified vitamin D deficiency documented in this encounter Care Teams Desulfurizer Hand Relationship Specialty Start Date End Date Leo Alegre DO [address] [place] [address] PCP - General Family Medicine 03/03/21 documented as of this encounter
--- OUTSIDE RECORDS SUMMARY | 2024-06-18 14:59 | XMS_ITS | Encounter Summary ---
Author Organization [facility] [place] [address] Care Team Providers Care Leaf Tier Name Role Phone Leo Alegre DO Primary Care Provider +1- [phone] Reason for Visit * Reason Comments Medication Refill Encounter Details Date Type Department Care Team (Late st Contact Info) Description 08/23/2021 Refill Nephrology Hypertension at [place] [phone] Hardik Dailey MD [facility] [place] [address] Social History Tobacco Use Types Packs/Day Years [...] 3:00 PM EDT Office Visit Endocrinology at [place] [phone] Leo Flor MD [facility] [place] [address] 08/12/2024 3:40 PM EDT Office Visit Pulmonology at [place] [phone] Siva Harrison MD [facility] [place] [address] 09/18/2024 1:00 PM EST Office Visit Cardiology at [address] [phone] Jj Davis MD [facility] [place] [address] documented as of this encounter Visit Diagnoses Not on filedocumented in this encounter Care Teams Leaf Tier Relationship Specialty Start Date End Date Leo Alegre DO [address] [place] [address] PCP - General Family Medicine 03/03/21 documented as of this encounter
--- OUTSIDE RECORDS SUMMARY | 2024-06-18 14:59 | XMS_ITS | Encounter Summary ---
Author Organization [facility] Address [facility] [place] [address] Care Team Providers Care Front Desk Receptionist Name Role Phone Maryuri Severino MD Primary Care Provider +1- [phone] Encounter Details Date Type Department Care Team (Late st Contact Info) Description 11/01/2010 1:30 PM EST Office Visit Dermatology [address] [place] [address] Hardik Dejesus MD [address] [facility] [place] [address] Social History Tobacco Use Types Packs/Day Years [...] 3:00 PM EDT Office [place] [phone] Leo Flor MD [facility] [place] [address] 08/12/2024 3:40 PM EDT Office [place] [phone] Siva Harriosn MD [facility] [place] [address] 09/18/2024 1:00 PM EST Office Visit Cardiology at [address] [phone] Jj Davis MD [facility] [place] [address] documented as of this encounter Visit Diagnoses Not on filedocumented in this encounter Care Teams Front Desk Receptionist Relationship Specialty Start Date End Date Maryuri Severino MD [facility] [address] [place] [address] PCP - General 10/04/10 09/27/17 documented as of this encounter
--- OUTSIDE RECORDS SUMMARY | 2024-06-18 14:59 | XMS_ITS | Encounter Summary ---
Author Organization [facility] [place] [address] Care Team Providers Care Trust Mail Clerk Name Role Phone Leo Alegre DO Primary Care Provider +1- [phone] Encounter Details Date Type Department Care Team (Latest Contact Info) Description 03/03/2021 4:00 PM EDT Office Visit [place] [phone] Hardik Dailey MD [facility] [place] [address] Uric acid nephrolithiasis; Vitamin D deficiency Social History Tobacco Use Types Packs/Day Years Used Date Smoking Tobacco: Never Smokeless Tobacco: Never Sex and Gender Information Value Date Recorded Sex Assigned at Not on file Gender Identity Not on file Sexual Orientation Not on file documented as of this encounter Last Filed Vital Signs Vital Sign Reading Time Taken Comments Blood Pressure 173/89 03/03/2021 3:39 PM EDT Pulse 106 03/03/2021 3:39 PM EDT Temperature - - Respiratory Rate - - Oxygen Saturation - - Inhaled Oxygen Concentration - - Weight 147.9 kg (326 lb) 03/03/2021 3:39 PM EDT Height 180.3 cm (5' 11) 03/03/2021 3:39 PM EDT Body Mass Index 45.47 03/03/2021 3:39 PM EDT documented in this encounter Progress Notes * Hardik Dailey MD - 03/03/2021 4:00 PM EDT PATIENT: Martín Mitchell : 1960 Interval history: Patient reports overall doing well. He believes he is gained weight. He has triedto eliminate red meat from diet. Assessment/Plan: #Nephrolithiasis Remote history of uric acid stone retrieval. Patient reports no known stones since 2019. Patient isfocusing on elimination of animal protein (although continues to have large intake of chicken and fish). Patient reports fluid intake approximately a gallon a day. He reports near compliance with potassium citrate. Plan: Follow-up on pending BMP continue to target fluid intake 3 to 4 L/day. Continue potassium citrate 20 mg twice daily. Follow-up on pending vitamin D level continue ergocalciferol [facility] Follow-Up Plan: 12 months Outpatient medications: Current Outpatient Medications on File Prior to Visit Medication Sig Dispense Refill ??? Ventolin HFA 90 mcg/actuation HFA Aerosol Inhaler 4 times daily as needed. ??? potassium citrate SR (Urocit) 10 mEq (1,080 mg) Tablet Sustained Release TWO TABLETS BY MOUTH, TWICE DAILY 360 tablet 2 ??? verapamil (CALAN-SR) 180 mg Tablet Sustained Release Take 180 mg by mouth 2 times daily. ??? ergocalciferol (ERGOCALCIFEROL) 50,000 unit Capsule Take 1 capsule by mouth once a week. 8 capsule 12 ??? melatonin 3 mg Tablet Take 9 mg by mouth nightly as needed. ??? ketoconazole (NIZORAL) 2 % Cream as needed. ??? LORazepam (ATIVAN) 1 mg Tablet Take 1 mg by mouth as needed. ??? [DISCONTINUED] ARIPiprazole (ABILIFY) 10 mg Tablet Take 10 mg by mouth daily. No current facility-administered [...] Last value Temperature Heart Rate Heart Rate: (!) 106 Blood Pressure BP: 173/89 Respiratory Rate SpO2 Appearance - Alert, Comfortable. Obese Skin - No exanthem. HEENT - Sclera [...] PLATELET in the last 7068 hours. Chemistry: No results for input(s): NA, K, CL, CO2, BUN, CREATININE, GLUCOSE in the last 7068 hours. No results for input(s): CALCIUM, MAGNESIUM, PHOS in the last 7068 hours. LFT's: No results for input(s): BILITOT, BILIDIR, ALBUMIN, ALKPHOS, ALT, AST in the last 7068 hours. Hardik Dailey MD, MPH Section of Nephrology #[id number] documented in this encounter Plan of Treatment Upcoming Encounters Date Type Department Care Team (Late st Contact Info) Description 07/02/2024 3:00 PM EDT Office [place] [address] [facility] [place] [address] 08/12/2024 3:40 PM EDT Office [place] [phone] [facility] [place] [address] 09/18/2024 1:00 PM EST Office Visit Cardiology at [address] [phone] [facility] [place] [address] documented as of this encounter Visit Diagnoses Diagnosis Uric acid nephrolithiasis Vitamin D deficiency Unspecified vitamin D deficiency documented in this encounter Care Teams Trust Mail Clerk Relationship Specialty Start Date End Date Leo Alegre DO [address] [place] [address] PCP - General Family Medicine 03/03/21 documented as of this encounter
--- OUTSIDE RECORDS SUMMARY | 2024-06-18 14:59 | XMS_ITS | Encounter Summary ---
Author Organization Formerly [facility] [place] [address] Care Team Providers Care Photographer'S Model Name Role Phone Siva Wiseman DO Primary Care Provider [phone]- [phone] Encounter Details Date Type Department Care Team (Latest Contact Info) Description 10/16/2018 11:00 AM EST Office Visit Ne[place] [address] Hardik Dailey MD [facility] [place] [address] Nephrolithiasis; Vitamin D deficiency; Uric acid kidney stone Social History Tobacco Use Types Packs/Day Years Used Date Smoking Tobacco: Never Smokeless Tobacco: Never Sex and Gender Information Value Date Recorded Sex Assigned at Not on file Gender Identity Not on file Sexual Orientation Not on file documented as of this encounter Last Filed Vital Signs Vital Sign Reading Time Taken Comments Blood Pressure 138/96 10/16/2018 10:34 AM EST Pulse 84 10/16/2018 10:34 AM EST Temperature - - Respiratory Rate - - Oxygen Saturation - - Inhaled Oxygen Concentration - - Weight 142.9 kg (315 lb) 10/16/2018 10:34 AM EST Height 180.3 cm (5' 11) 10/16/2018 10:34 AM EST Body Mass Index 43.93 10/16/2018 10:34 AM EST documented in this encounter Progress Notes * Hardik Dailey MD - 10/16/2018 11:00 AM EST PATIENT: Martín Mitchell : 1960 REASON FOR CONSULTATION: Nephrolithiasis Assessment/Plan: #Nephrolithiasis: Stone Analysis:Bladder calculi obtained via cystoscopy at [facility] facility with analysis Of 100% uric acid 24 hour collection Data done at outside facility: Volume/Adequecy: volume 1900cc and Cr exrection ~19mg/kg which is on low end of adequacy for a male. Per litholink 24hours volume 3.47 Liters, Uric acid level 2.57 (with elevated super saturation) . Urinary calcium also slightly elevated (although Ddeficient) Patient initiated on KCitrate for alkalization of urine and actively working on restriction of animal proteins (lower obligate acid excretion) Plan: Will follow up BMP, and Uric acid. Will also ask patient to repeat 24 hour collection (via litholink) Continue to focus diet in stone management with an emphasis on fluid intake 2-3 liters daily (patient reports ~1 gallon daily) and Salt restriction. Continue to focus on limiting acid intake (animal proteins/Beer) Continue alkalinize urine using Potassium Citrate 20meq BID. Will consider repeat imaging in ~12mos to evaluate for obstructive process. Vitamin D deficiency Patient on ergocalciferol replacement. Will repeat levels next time patient in clinic. Renal Clinic Follow-up Plan: 6 mos. Interval history: Patient denies known stone recurrence in interval. He has stopped taking verapamil. He reports being compliant with K-citrate for the most part. He is actively trying to cut back on his meat intake (down to a pound per day) No past medical history on file. No past surgical history on file. No family history on file. Social History Social History Narrative Not on file Outpatient medications: Current Outpatient Medications on File Prior to Visit Medication Sig Dispense Refill ??? potassium Citrate (UROCIT) 10 mEq (1,080 mg) Tablet Sustained Release TAKE TWO TABLETS BY MOUTHTWICE DAILY 60 tablet 2 ??? ergocalciferol (ERGOCALCIFEROL) 50,000 unit Capsule Take [...] mg/5 gram (1 %) Gel 5 ??? [DISCONTINUED] verapamil (CALAN-SR) 180 mg Tablet Sustained Release Take 180 mg by mouth 2 times daily. ??? [DISCONTINUED] carbamazepine (TEGRETOL ORAL) Take 600 mg by mouth 2 times daily. ??? [DISCONTINUED] valsartan (DIOVAN) 160 mg Tablet Take 80 mg by mouth daily. No current facility-administered [...] swelling, difficulty breathing lying flat GI - Diarrhea ongoing which he associates with protein inkaeGU - No change in urine output. No painurinating or blood in urine. Neuro - No weakness. No numbness/ tingling in extremities. MSK- No joint pain/swelling Neuro - No weakness. No numbness/ tingling in extremities. PHYSICAL EXAM: Last value Temperature Heart Rate Heart Rate: 84 Blood Pressure BP: (!) 138/96 Respiratory Rate SpO2 Appearance - Alert, Comfortable.Obese. Skin - No exanthem. HEENT - Sclera [...] the last 7068 hours. Chemistry: Recent Labs 06/11/18 1352 NA 138 K 4.1 CL 96* CO2 23 BUN 21* CREATININE 0.77* GLUCOSE 98 Recent Labs 06/11/18 1352 CALCIUM 8.8 LFT's: No results for input(s): BILITOT, BILIDIR, ALBUMIN, ALKPHOS, ALT, AST in the last 7067 hours. Hardik Dailey MD, MPH Section of Nephrology #[id number] documented in this encounter Plan of Treatment Upcoming Encounters Date Type Department Care Team (Late st Contact Info) Description 07/02/2024 3:00 PM EDT Office [place] [address] Leo Flor MD [facility] [place] [address] 08/12/2024 3:40 PM EDT Office [place] [address] Siva Harrison MD [facility] [place] [address] 09/18/2024 1:00 PM EST Office Visit Cardiology at [place] [phone] Jj Davis MD [facility] [address] documented as of this encounter Results * Uric acid (05/12/2019 11:57 AM EDT) Uric Acid 6.9 3.5 - 8.5 mg/dL [facility] Blood specimen (specimen) 05/12/2019 11:57 AM EDT 05/12/2019 12:06 PM EDT Narrative Resulting Agency Comment Spec In Lab Hardik Dailey MD CHEMISTRY ORDERABLES [facility] [place] [address] * (ABNORMAL) Basic Metabolic Panel (non-fasting) (05/12/2019 11:57 AM EDT) Glucose 108 65 - 199 mg/dL [facility] Comment:Diabetes: >=200 mg/d L plus symptoms Blood Urea Nitrogen 15 10 - 20 mg/dL [facility] Creatinine 0.68(L) 0.80 - 1.50 mg/dL [facility] Sodium 140 135 - 145 mmol/L [facility] Potassium 4.4 3.5 - 5.0 mmol/L [facility] Comment: Please note: ??Patients with WBC >100,000 may have falsely elevated Potassium levels. ??For accurate Potassium quantification in these patients send serum separator tube (gold top) for subsequent determinations. ??Contact the Clinical Chemistry Laboratory if there are any questions. Chloride 103 98 - 107 mmol/L [facility] Carbon Dioxide 25 22 - 31 mmol/L [facility] Anion Gap 12 5 - 15 mmol/L [facility] Calcium 9.2 8.5 - 10.5 mg/dL [facility] Est Glomerular Filtration Rate 107 >=60 mL/min/1. 73 m?? [facility] Comment: The eGFR was calculated using the CKD-EPI equation. As with all creatinine based estimates of kidney function, eGFR values calculated with the CKD-EPI equation are not accurate in patients with acute kidney failure, extremes of body mass or the acutely ill. http://Georama/DHMCnkf eGFR 124 >=60 mL/min/1. 73 m?? [facility] Comment: The eGFR was calculated using the CKD-EPI equation. As with all creatinine based estimates of kidney function, eGFR values calculated with the CKD-EPI equation are not accurate in patients with acute kidney failure, extremes of body mass or the acutely ill. http://[email or web address] Blood specimen (specimen) 05/12/2019 11:57 AM EDT 05/12/2019 12:06 PM EDT Narrative Resulting Agency Comment Spec In Lab Hardik Dailey MD CHEMISTRY ORDERABLES [facility] [place] [address] * (ABNORMAL) Vitamin D, 25-Hydroxy (05/12/2019 11:57 AM EDT) Vitamin D Total 25 OH 12(L) 30 - 100 ng/mL [facility] Comment: Deficient <10 ng/mL Insufficient 10 to 29 ng/mL Sufficient 30 to 100 ng/mL Potential Intoxication >100 ng/mL According to the [place] National Osteoporosis Foundation, Vitamin D concentrations >30 ng/mL are sufficient to protect bone health. ??The National Kidney Foundation has similarly stated that patients with Vitamin D concentrations <30ng/mL should be considered to be insufficient or deficient. http://Georama/nkf-guidelines http://Georama/nejm-VitD The [employer] i[employer] Vitamin D Immunoassay detects both 25-OH Vitamin D2 and 25-OH Vitamin D3, but only a total Vitamin D concentration is reported. Blood specimen (specimen) 05/12/2019 11:57 AM EDT 05/12/2019 1:50 PM EDT Narrative Resulting Agency Comment Spec In Lab Hardik Dailey MD CHEMISTRY ORDERABLES [facility] [place] [address] * (ABNORMAL) Basic Metabolic Panel (non-fasting) (10/16/2018 10:26 AM EST) Glucose 114 65 - 199 mg/dL [facility] Comment:Diabetes: >=200 mg/d L plus symptoms Blood Urea Nitrogen 23(H) 10 - 20 mg/dL [facility] Creatinine 0.88 0.80 - 1.50 mg/dL [facility] Sodium 140 135 - 145 mmol/L [facility] Potassium 4.8 3.5 - 5.0 mmol/L [facility] Comment: Please note: ??Patients with WBC >100,000 may have falsely elevated Potassium levels. ??For accurate Potassium quantification in these patients send serum separator tube (gold top) for subsequent determinations. ??Contact the Clinical Chemistry Laboratory if there are any questions. Chloride 102 98 - 107 mmol/L [facility] Carbon Dioxide 23 22 - 31 mmol/L [facility] Anion Gap 15 5 - 15 mmol/L [facility] Calcium 9.1 8.5 - 10.5 mg/dL [facility] Est Glomerular Filtration Rate 97 >=60 mL/min/1. 73 m?? [facility] Comment: The eGFR was calculated using the CKD-EPI equation. As with all creatinine based estimates of kidney function, eGFR values calculated with the CKD-EPI equation are not accurate in patients with acute kidney failure, extremes of body mass or the acutely ill. http://Georama/[facility]QUAHnkf eGFR 112 >=60 mL/min/1. 73 m?? [facility] Comment: The eGFR was calculated using the CKD-EPI equation. As with all creatinine based estimates of kidney function, eGFR values calculated with the CKD-EPI equation are not accurate in patients with acute kidney failure, extremes of body mass or the acutely ill. http://Georama/DHMCnkf Blood specimen (specimen) 10/16/2018 10:26 AM EST 10/16/2018 10:35 AM EST Narrative Resulting Agency Comment Spec In Lab Hardik Dailey MD CHEMISTRY ORDERABLES Performing Organization Address City/[facility] Co de Phone Number [facility] [place] [address] * Uric acid (10/16/2018 10:26 AM EST) Uric Acid 7.8 3.5 - 8.5 mg/dL [facility] Blood specimen (specimen) 10/16/2018 10:26 AM EST 10/16/2018 10:35 AM EST Narrative Resulting Agency Comment Spec In Lab Hardik Dailey MD CHEMISTRY ORDERABLES Performing Organization Address City/[facility]/ZIP Co de Phone Number [facility] [place] [address] documented in this encounter Visit Diagnoses Diagnosis Nephrolithiasis Calculus of kidney Vitamin D deficiency Unspecified vitamin D deficiency Uric acid kidney stone Uric acid nephrolithiasis documented in this encounter Care Teams Photographer'S Model Relationship Specialty Start Date End Date Siva Wiseman DO [address] [place] [address] PCP - General General Internal Medicine 06/12/1805/12 documented as of this encounter
--- OUTSIDE RECORDS SUMMARY | 2024-06-18 14:59 | XMS_ITS | Encounter Summary ---
Author Organization [facility] [place] [address] Care Team Providers Care Acrylic Fabricator Name Role Phone KaleteSiva DO Primary Care Provider [phone]- [phone] Reason for Visit * Reason Comments Medication Refill Encounter Details Date Type Department Care Team (Late st Contact Info) Description 10/18/2018 Refill Nephrology Hypertension at [place] [phone] Hardik Dailey MD [facility] [place] [address] Social History Tobacco Use Types Packs/Day Years [...] 3:00 PM EDT Office Visit Endocrinology at [place] [phone] Leo Flor MD [facility] [place] [address] 08/12/2024 3:40 PM EDT Office Visit [place] [address] Svia Harrison MD [facility] [place] [address] 09/18/2024 1:00 PM EST Office Visit Cardiology at [address] [address] Jj Davis MD [facility] [place] [address] documented as of this encounter Visit Diagnoses Not on filedocumented in this encounter Care Teams Acrylic Fabricator Relationship Specialty Start Date End Date Siva Wiseman DO [address] [place] [address] PCP - General General Internal Medicine 06/12/1805/12 documented as of this encounter
--- OUTSIDE RECORDS SUMMARY | 2024-06-18 14:59 | XMS_ITS | Encounter Summary ---
Author Organization [facility] Address One [facility] [address] Care Team Providers Care Barrel Cutter Name Role Phone Cody Ahumada DO Primary Care Provider [phone] Reason for Visit * Reason Comments Follow-up Encounter Details Date Type Department Care Team (Late st Contact Info) Description 10/19/2017 3:00 PM EST Office Visit Dermatology at [address] [place] [address] Hardik Dejesus MD [address] [facility] [place] [address] Inflamed acrochordon Social History Tobacco Use Types Packs/Day Years Used Date Smoking Tobacco: Never Smokeless Tobacco: Never Sex and Gender Information Value Date Recorded Sex Assigned at Not on file Gender Identity Not on file Sexual Orientation Not on file documented as of this encounter Progress Notes * Hardik Dejesus MD - 10/19/2017 3:00 PM EST PROBLEM: Followup for repeat skin tag removal. Martín follows up for removal of additional skin tags present this time in the right axillary vault, one underneath his right left breast, one on the left mid buttocks. Physical examination confirms numerous tags present in these locations. Some are irritated today. A/P: Acrochordons. a. Today a total of 15 tags removed after first anesthetizing them and then using electrodesiccation. b. Patient tolerated it well. c. Return to clinic in 3-4 weeks to treat any residual tags. CC: Cody Ahumada DO documented in this encounter Plan of Treatment Upcoming Encounters Date Type Department Care Team (Late st Contact Info) Description 07/02/2024 3:00 PM EDT Office Visit Endocrinology at [place] [address] Leo Flor MD [facility] [place] [address] 08/12/2024 3:40 PM EDT Office Visit Pulmonology at [address] Siva Harrison MD [facility] [place] [address] 09/18/2024 1:00 PM EST [place] [address] Jj Davis MD [facility] [place] [address] documented as of this encounter Visit Diagnoses Diagnosis Inflamed acrochordon Unspecified hypertrophic and atrophic condition of skin documented in this encounter Care Teams Barrel Cutter Relationship Specialty Start Date End Date Cody Ahumada DO PCP - General General Internal Medicine 09/28/17 711/29 documented as of this encounter
--- OUTSIDE RECORDS SUMMARY | 2024-06-18 14:59 | XMS_ITS | Clinical Summary ---
Author Organization [facility] Address [address] [place] [address] Care Team Providers Care Aviation Technician Aircraft Name Role Phone System, Provider Not In [...] - - Body Mass Index - - Plan of Treatment Not on file Insurance Payer Benefit Plan / Group Subscriber ID Effective Dates Phone Address Type MEDICARE MEDICARE A AND B [id number] 2005-Presen t [address] [place] [address] Medicare [place] [id number] 2014-Presen t [address] [place] [address] Care Teams Aviation Technician Aircraft Relationship Specialty Start Date End Date System, Provider Not In PCP - Generic [facility] PCP 06/05/14
--- OUTSIDE RECORDS SUMMARY | 2024-06-18 14:59 | XMS_ITS | Encounter Summary ---
Author Organization [facility] Address [facility] [address] Care Team Providers Care Strap Making Machine Operator Name Role Phone Leo Alegre DO Primary Care Provider [phone]- [phone] Encounter Details Date Type Department Care Team (Late st Contact Info) Description 11/22/2021 2:30 PM EST Office Visit Dermatology at [address] [place] [phone] Hardik Dejesus MD [address] [facility] [place] [address] Inflamed acrochordon Social History Tobacco Use Types Packs/Day Years Used Date Smoking Tobacco: Never Smokeless Tobacco: Never Sex and Gender Information Value Date Recorded Sex Assigned at Not on file Gender Identity Not on file Sexual Orientation Not on file documented as of this encounter Progress Notes * Hardik Dejesus MD - 11/22/2021 2:30 PM EST Problem: Follow-up for anibal Resendiz follows up and has additional tags present, which are quite symptomatic and sore on the right eye lid the left angle of the jaw, superior shoulders and upper inner thighs. He also has numerous tags present in both axillary vaults. Physical examination reveals acrochordons present at the above sites noted above. Assessment and plan: Acrochordons 1. Today sites were anesthetized and then removed with electrodesiccation. A total of 14 were treated and removed. 2. Return to clinic for another 15-minute appointment for removal of axillary vault sites of skin tags. CC: Leo Alegre DO documented in this encounter Plan of Treatment Upcoming Encounters Date Type Department Care Team (Late st Contact Info) Description 07/02/2024 3:00 PM EDT Office Visit Endocrinology at [place] [address] Leo Flor MD [facility] [place] [address] 08/12/2024 3:40 PM EDT Office Visit Pulmonology at [place] [address] Siva Harrison MD [facility] [place] [address] 09/18/2024 1:00 PM EST [place] [address] Jj Davis MD [facility] [place] [address] documented as of this encounter Visit Diagnoses Diagnosis Inflamed acrochordon Unspecified hypertrophic and atrophic condition of skin documented in this encounter Care Teams Strap Making Machine Operator Relationship Specialty Start Date End Date Leo Alegre DO [address] [place] [address] PCP - General Family Medicine 03/03/21 documented as of this encounter
--- OUTSIDE RECORDS SUMMARY | 2024-06-18 14:59 | XMS_ITS | Encounter Summary ---
Author Organization [facility] [place] [address] Care Team Providers Care Travel Registered Nurse Icu Name Role Phone Leo Alegre DO Primary Care Provider [phone]- [phone] Reason for Visit * Reason Comments Follow-up Encounter Details Date Type Department Care Team (Late st Contact Info) Description 01/05/2022 3:15 PM EST Office Visit Dermatology at [place] [address] [place] [phone] Hardik Dejesus MD 580 [facility] DER[facility]Y [place], [place] [id number] Inflamed acrochordon Social History Tobacco Use Types Packs/Day Years Used Date Smoking Tobacco: Never Smokeless Tobacco: Never Sex and Gender Information Value Date Recorded Sex Assigned at Not on file Gender Identity Not on file Sexual Orientation Not on file documented as of this encounter Progress Notes * Hardik Dejesus MD - 01/05/2022 3:15 PM EST Problem: Acrochordons Martín follows up for the second in a series of 2 visits for the removal of his acrochordons. Today we are going to treat the tags in both the left and right axillary vault areas Physical examination reveals multiple tags present in both sites. There are total of 25 noted. Assessment and plan: Acrochordons 1. Today sites were anesthetized and then removed with electrodesiccation. A total of 25 were treated. 2. Patient tolerated well 3. Return to clinic as needed. CC: Leo Alegre DO documented in this encounter Plan of Treatment Upcoming Encounters Date Type Department Care Team (Late st Contact Info) Description 07/02/2024 3:00 PM EDT Office Visit Endocrinology at [place] [address] Leo Flor MD [facility] [address] 08/12/2024 3:40 PM EDT Office [place] [address] Siva Harrison MD [facility] [place] [address] 09/18/2024 1:00 PM EST [place] [address] Jj Davis MD [facility] [place] [address] documented as of this encounter Visit Diagnoses Diagnosis Inflamed acrochordon Unspecified hypertrophic and atrophic condition of skin documented in this encounter Care Teams Travel Registered Nurse Icu Relationship Specialty Start Date End Date Leo Alegre DO [address] [place] [address] PCP - General Family Medicine 03/03/21 documented as of this encounter
--- OUTSIDE RECORDS SUMMARY | 2024-06-18 14:59 | XMS_ITS | Encounter Summary ---
Author Organization [facility] [place] [address] Care Team Providers Care Correction Warden Name Role Phone Leo Alegre DO Primary Care Provider [phone]- [phone] Reason for Visit * Reason Comments Medication Refill Encounter Details Date Type Department Care Team (Late st Contact Info) Description 11/15/2021 Refill Nephrology Hypertension at [place] [phone] Hardik Dailey MD [facility] [place] [address] Social History Tobacco Use Types Packs/Day Years [...] 3:00 PM EDT Office Visit Endocrinology at [place] [phone] Leo Flor MD [facility] [place] [address] 08/12/2024 3:40 PM EDT Office Visit Pulmonology at [place] [phone] Siva Harrison MD [facility] [place] [address] 09/18/2024 1:00 PM EST Office Visit Cardiology at [address] [address] Jj Davis MD [facility] [place] [address] documented as of this encounter Visit Diagnoses Not on filedocumented in this encounter Care Teams Correction Warden Relationship Specialty Start Date End Date Leo Alegre DO [address] [place] [address] PCP - General Family Medicine 03/03/21 documented as of this encounter
--- OUTSIDE RECORDS SUMMARY | 2024-06-18 14:59 | XMS_ITS | Encounter Summary ---
Author Organization [facility] [place] [address] Care Team Providers Care Cut Off Worker Name Role Phone Leo Alegre DO Primary Care Provider +1- [phone] Reason for Visit * Reason Comments Medication Refill Encounter Details Date Type Department Care Team (Late st Contact Info) Description 03/08/2021 Refill Nephrology Hypertension at [place] [phone] Hardik Dailey MD [facility] [place] [address] Social History Tobacco Use Types Packs/Day Years [...] 3:00 PM EDT Office Visit Endocrinology at [place] [phone] Leo Flor MD [facility] [place] [address] 08/12/2024 3:40 PM EDT Office Visit Pulmonology at [place] [phone] Siva Harrison MD [facility] [place] [address] 09/18/2024 1:00 PM EST Office Visit Cardiology at [address] [address] Jj Davis MD [facility] [place] [address] documented as of this encounter Visit Diagnoses Not on filedocumented in this encounter Care Teams Cut Off Worker Relationship Specialty Start Date End Date Leo Alegre DO [address] [place] [address] PCP - General Family Medicine 03/03/21 documented as of this encounter
== END 2024-07-12 23:59 | disposition home or self-care (01) ==
LOC: CR 13:31
PROVIDERS: Visit Provider Internal Medicine Cardiovascular Disease
DX: I21.4 Non-ST elevation (NSTEMI) myocardial infarction (principal); Z51.89 Encounter for other specified aftercare
CPT/HCPCS: S9472

== ENCOUNTER 2024-07-23 13:38 | Outpatient (RCR) | payer MEDICARE, MEDICAID, SELFPAY | END 2024-08-11 23:59 | disposition home or self-care (01) | LOC: CR 13:38 | PROVIDERS: Visit Provider Internal Medicine Cardiovascular Disease | DX: I21.4 Non-ST elevation (NSTEMI) myocardial infarction (principal); Z51.89 Encounter for other specified aftercare | CPT/HCPCS: S9472 ==